=== PATIENT | female | born 2005 | race Caucasian/White ===

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

== ENCOUNTER 2024-06-15 13:08 | Outpatient (OUT) | payer OTHER, SELFPAY ==
--- NOTE | 2024-06-15 13:11 | US_ITS ---
The [address] [address] Patient Name: DANETTE AYALA MRN: [id number] date: 2005 Sex: F Assigned Patient Location: [facility] Current Patient Location: LAB Accession/Order Number: [id number] Exam Date: 06/15/2024 13:11 Report Date: 06/15/2024 22:02 At the request of: SHANIA VAZQUEZ Procedure: US pelvis w/ transvaginal EXAM: US Pelvis Transvaginal CLINICAL INDICATION: POLYCYSTIC OVARIAN DISEASE TECHNIQUE: Real-time transvaginal pelvic ultrasound with image documentation. Transvaginal imaging was used for better evaluation of the endometrium and adnexa. COMPARISON: No relevant prior studies available. FINDINGS: UTERUS/CERVIX: Unremarkable. Normal endometrial stripe thickness. No myometrial mass. RIGHT OVARY: There are approximately 5 small ovarian follicles. Normal blood flow. LEFT OVARY: 2.6 cm left ovarian involuting dominant follicle. No torsion FREE FLUID: No free fluid. US/US pelvis w/ transvaginal IMPRESSION: Relative physiologic appearance of the ovaries without overt stigmata of PCOS Electronically authenticated by: CLARK LARA Date: 06/15/2024 22:02
== END 2024-06-15 13:09 | disposition home or self-care (01) ==
LOC: NOMS 13:08
PROVIDERS: PCP Family Medicine; Visit Provider Obstetrics & Gynecology
DX: E28.2 Polycystic ovarian syndrome (principal)
CPT/HCPCS: 76830; 76856

== ENCOUNTER 2024-06-15 13:49 | Outpatient (OUT) | payer OTHER, SELFPAY ==
--- OUTSIDE RECORDS SUMMARY | 2024-06-15 14:07 | XMS_ITS | CCD ---
Author Organization [facility] Inform ion Partnership [facility] Care Team Providers Care Pesticide Control Inspector Name Role Phone BENITEZ, DR MUNOZ Primary Care Unavailable KIRBY ATKINSON Attending Unavailable DEMETRIO, KIRBY Admitting Unavailable AHDOJONI RICH Consulting Unavailable MichelleHarsha fischer Consulting Unavailable KIRBY ATKINSON Consulting Unavailable KRYSTA, DR BURDICK Consulting Unavailable KARGRETCHEN, DR BURDICK Attending Unavailable BENITEZ, DR MUNOZ Primary Care Unavailable KRYSTA, DR BURDICK Admitting Unavailable WEST, DR KIAN Pablo Consulting Unavailable KARASIK, DR BURDICK Consulting Unavailable KARASIK, DR BURDICK Attending Unavailable BENITEZ, DR MUNOZ Primary Care Unavailable KARASIK, DR BURDICK Admitting Unavailable ZIEBER, DR MELVIN Olmedo Consulting Unavailable SHANIA VAZQUEZ Attending Unavailable Allergies Allergy Classification Reported Allergen(s) Allergy Type Date of Onset Reaction(s) Facility (1 source) Penicillins Drug allergy (disorder) 01-02-2015 [facility] Repository Problems Problem Classification Problem Date Documented Da te Episodic/Chronic Abdominal pain (8 sources) Pelvic and perineal pain; Translations: [Unspecified abdominal pain] Onset: 05-05-2021 Episodic Genitourinary congenital anomalies (1 source) Bicornate uterus; 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] Onset: 10-18-2021 Chronic Ovarian cyst (5 sources) Unspecified ovarian cyst, left side; Translations: [UNSPECIFIED OVARIAN CYST LEFT SIDE] Onset: 10-18-2021 Episodic Results Test Name Value Interpretation Reference Range Facil ity US PELVIS AND TRANSVAGon US PELVIS AND TRANSVAG EXAMINATION: US PELVIS AND TRANSVAG HISTORY: Cyst of left ovary COMPARISON: 10/12/2021 FINDINGS: Transabdominal and transvaginal images The uterus is normal in size, contour and echotexture measuring 7.0 x 4.8 x 3.7 cm. No focal myometrial mass The endometrium measures 8.7 mm, normal. The right ovary measures 3.1 x 2.3 x 1.8 cm. Subcentimeter peripherally distributed follicles. PSV/EDV: 14.9/6.8 cm/s. Resistive index 0.54. The left ovary measures 3.0 x 2.8 x 1.7 cm. PSV/EDV: 11.6/7.8 cm/s. Resistive index 0.33. The previously identified left ovarian cyst has resolved IMPRESSION: Interval resolution of previously identified left ovarian cyst Electronically authenticated by: KIAN MONREAL Date: 2022-01-02 14:40 Normal [facility] US PELVIS AND TRANSVAGon US PELVIS AND TRANSVAG EXAMINATION: US PELVIS AND TRANSVAG HISTORY: Pelvic and perineal pain COMPARISON: Ultrasound pelvis 05/05/2021 TECHNIQUE: Transabdominal and transvaginal sonographic examination. FINDINGS: UTERUS: Bicornuate uterus. Uterus size: 7.5-4 0.6 x 3.8 cm ENDOMETRIUM: Normal homogeneous appearance. Endometrial thickness: 7 mm RIGHT OVARY: Contains a 1.3 cm dominant follicle versus simple cyst. Duplex Doppler demonstrates normal waveform and flow; resistive index 0.6. Ovary size: 2.3 x 2.5 x 2.3 cm LEFT OVARY: Contains a 4.1 cm benign-appearing simple cyst. Duplex Doppler demonstrates normal waveform and flow; resistive index 0.5. Ovary size: 5.1 x 4.2 x 3.6 cm CUL-DE-SAC: Unremarkable. No significant free fluid. BLADDER: Unremarkable. OTHER: None. IMPRESSION: 1. No ovarian torsion. 2. Left ovary contains a 4.1 cm benign simple appearing cyst. It is uncertain whether this represents enlargement of the cyst seen on 05/05/2021, or interval development of a prominent simple appearing cyst. 3. Bicornuate uterus. Electronically authenticated by: MELVIN ALONSO Date: 2021-10-12 15:53 Normal [facility] CBC AUTO DIFFon 05-05-2021 BASO # 0.0 103/ul Normal 0.0-0.1 [facility] Comment on above: Performed By: #### C BC #### [facility] [address] [id number] [place]ela Basophils/100 WBC (Bld) 0.3 % Normal 0.2-2.0 [facility] Comment on above: Performed By: #### C BC #### [facility] [address] [place] [address] [place] Adela EO # 0.0 103/ul Normal 0.0-0.7 [facility] Comment on above: Performed By: #### C BC #### [facility] [address] [place], [place] [id number] [place] Adela Eosinophils/100 WBC (Bld) 0.3 % Critically low 0.9-7.0 [facility] Comment on above: Performed By: #### C BC #### [facility] [address] [place] [address] Cain Adela Erythrocyte distribution width (RBC) [Ratio] 14.3 % Normal 11.0-15.0 [facility] Comment on above: Performed By: #### C BC #### [facility] [address] [place] [address] Cain Adela Hematocrit (Bld) [Volume fraction] 34.1 % Critically low 36.0-48.0 [facility] Comment on above: Performed By: #### C BC #### [facility] [address] [place] [address] Cain Adela Hemoglobin (Bld) [Mass/Vol] 11.1 g/dL Critically low 12.0-16.0 [facility] Comment on above: Performed By: #### C BC #### [facility] [address] [place] [address] Cain Adela IG # 0.02 10e3/ul Normal 0.00-0.03 [facility] Comment on above: Performed By: #### C BC #### [facility] [address] [place] [address] Cain Adela IG % 0.2 % Normal 0.0-0.5 [facility] Comment on above: Performed By: #### C BC #### [facility] [address] [place] [address] Cain Adela LYMPH # 0.9 103/ul Critically low 1.2-3.8 [facility] Comment on above: Performed By: #### C BC #### [facility] [address] [place], [place] [id number] Cain Chapman Lymphocytes/100 WBC (Bld) 9.3 % Critically low 20.5-60.0 [facility] Comment on above: Performed By: #### C BC #### [facility] [address] [place] [address] [place] Adela MANUAL DIFF REQ NO Normal [facility] Comment on above: Performed By: #### C BC #### [facility] [address] [place] [address] Cain Chapman MCH (RBC) [Entitic mass] 25.6 pg Critically low 26.7-34.0 [facility] Comment on above: Performed By: #### C BC #### [facility] [address] [place] [address] Cainramona Chapman MCHC (RBC) [Mass/Vol] 32.6 g/dL Normal 29.9-35.2 [facility] Comment on above: Performed By: #### C BC #### [facility] [address] [place] [address] Cain Chapman MCV (RBC) [Entitic vol] 78.8 fL Critically low 79.1-95.6 [facility] Comment on above: Performed By: #### C BC #### [facility] [address] [place] [address] Cain Adela MONO # 0.6 103/ul Normal 0.3-0.8 [facility] Comment on above: Performed By: #### C BC #### [facility] [address] [place] [address] Cain Chapman Monocytes/100 WBC (Bld) 6.3 % Normal 1.7-12.0 [facility] Comment on above: Performed By: #### C BC #### [facility] [address] [place] [address] Cain Adela NEUT # 8.0 103/ul Critically high 1.4-6.5 [facility] Comment on above: Performed By: #### C BC #### [facility] [address] [place], [place] [id number] Cain Chapman Neutrophils/100 WBC (Bld) 83.6 % Critically high 43.0-75.0 [facility] Comment on above: Performed By: #### C BC #### [facility] [address] [place], [place] [id number] Cain Chapman Platelet mean volume (Bld) [Entitic vol] 11.0 fL Normal 9.5-13.5 [facility] Comment on above: Performed By: #### C BC #### [facility] [address] [place], [place] [id number] Cain Chapman PLT 233 103/ul Normal 150-450 [facility] Comment on above: Performed By: #### C BC #### [facility] [address] [place], [place] [id number] Cain Chapman RBC 4.33 106/ul Normal 3.40-5.30 [facility] Comment on above: Performed By: #### C BC #### [facility] [address] [place], [place] [id number] Cain Chapman WBC 9.6 103/ul Normal 4.0-11.0 [facility] Comment on above: Performed By: #### C BC #### [facility] [address] [place] [id number] ABD/PELV W CONon 05-05-[address] ABD/PELV W CON CLINICAL HISTORY: ABDOMINAL DISTENSION (GASEOUS). Abdominal pain with vomiting, pressure with urination. EXAMINATION: Enhanced CT scan of the abdomen and pelvis 05/05/2021. COMPARISON: None. TECHNIQUE: 3 mm axial images from lung bases through ischial tuberosities following administration of intravenous contrast were obtained. No oral contrast was utilized. Sagittal and coronal reconstructions were performed. Dose reduction techniques were achieved by using automated exposure control and/or adjustment of mA and/or kV according to patient size and/or use of iterative reconstruction technique. FINDINGS: There are no focal abnormalities of the visualized lung bases. The visualized cardiac and posterior mediastinal structures seem normal. CT ABDOMEN: The liver, spleen, gallbladder, pancreas, adrenal glands, kidneys appear normal. There is no hydronephrosis or nephrolithiasis. There is no perinephric fat stranding. The abdominal aorta has normal caliber. There is no retroperitoneal or mesenteric adenopathy. The bowel loops are of normal caliber with a normal-appearing appendix. CT PELVIS: The bladder seems normal. The uterus is normal in size. There is an ovoid, low-density lesion in the left ovary which measures approximately 2.0 x 3.0 cm. There is no enhancing rims, septations, or mural nodules. The Hounsfield units are 19. The right ovary seems normal. There is no pelvic adenopathy. There are no focal fluid collections. The visualized osseous structures seem normal. IMPRESSION: 1. Normal appendix. 2. No nephro or ureterolithiasis. 3. Dominant follicle or cyst measuring 2.9 cm in the left ovary. Electronically authenticated by: HARSHA AGUILAR Date: 2021-05-05 14:12 Normal [facility] ER URINE PROFILEon 1 Bilirubin Ql (U) Negative Normal NEGATIVE [facility] Comment on above: Performed By: #### E RUR, PREGU #### [facility] [address] [address] [place]ela Clarity (U) CLEAR Normal CLEAR [facility] Comment on above: Performed By: #### E RUR, PREGU #### [facility] [address] [id number] [place] Adela Color (U) LT. YELLOW Normal YELLOW [facility] Comment on above: Performed By: #### E RUR, PREGU #### [facility] [address] [id number] [place] Adela ERUAHD A micrscopic examination will be performed if indicated. Normal [facility] Comment on above: Performed By: #### E RUR, PREGU #### [facility] [address] [id number] [place] [address]ela Glucose Ql (U) Negative Normal NEGATIVE [facility] Comment on above: Performed By: #### E RUR, PREGU #### [facility] [address] [place] [address] Cain Adela Hemoglobin Ql (U) Negative Normal NEGATIVE [facility] Comment on above: Performed By: #### E RUR, PREGU #### [facility] [address] [place] [address] [address] Adela Ketones Ql (U) Negative Normal NEGATIVE [facility] Comment on above: Performed By: #### E RUR, PREGU #### [facility] [address] [place] [address] [address] Adela LEUKOCYTES Negative Normal NEGATIVE [facility] Comment on above: Performed By: #### E RUR, PREGU #### [facility] [address] [place] [address] [place] Adela Nitrite Ql (U) Negative Normal NEGATIVE [facility] Comment on above: Performed By: #### E RUR, PREGU #### [facility] [address] [place] [address] [place] Adela pH (U) 6.5 [pH] Normal 5-9 [facility] Comment on above: Performed By: #### E RUR, PREGU #### [facility] [address] [place] [address] [address] Adela SPEC GRAVITY 1.020 Normal 1.005-<=1.025 [facility] Comment on above: Performed By: #### E RUR, PREGU #### [facility] [address] [place] [address] [place] Adela UA PROTEIN Negative Normal NEGATIVE/ TRACE [facility] Comment on above: Performed By: #### E RUR, PREGU #### [facility] [address] [place] [address] [address] Adela UR MICRO IND NOT INDICATED Normal [facility] Comment on above: Performed By: #### E RUR, PREGU #### [facility] [address] [place] [address] [address] Adela Urobilinogen Qn (U) 0.2 {Dagoberto'U}/dL Normal 0.2 - 1. 0 [facility] Comment on above: Performed By: #### E RUShara, PREGU #### [facility] [address] [place] [id number] [address]ona Chapman LIPASEon 05-05-2021 Lipase [Catalytic activity/Vol] 53.0 U/L Normal 23.0-300.0 [facility] Comment on above: Performed By: #### C CRIS, LIPA #### [facility] [address] [place], [place] [id number] [address] Adela URon 05-05-2021 , QUAL Negative Normal NEGATIVE [facility] Comment on above: Performed By: #### E JUAN ALBERTO, PREGU #### [facility] [address] [place], [place] [id number] [address] PROF 14(COMP METB)on 021 Albumin [Mass/Vol] 3.7 g/dL Normal 3.5-5.0 [facility] Comment on above: Performed By: #### C CRIS, LIPA #### [facility] [address] [place], [place] [id number] Cainramona Chapman Albumin/Globulin [Mass ratio] 1.2 {ratio} Normal [facility] Comment on above: Performed By: #### C CRIS, LIPA #### [facility] [address] [place], [place] [id number] [address] Adela ALP [Catalytic activity/Vol] 86 U/L Normal 65-260 [facility] Comment on above: Performed By: #### C CRIS, LIPA #### [facility] [address] [place], [place] [id number] [address] Adela ALT [Catalytic activity/Vol] 22 U/L Normal 9-52 [facility] Comment on above: Performed By: #### C CRIS, LIPA #### [facility] [address] [place], [place] [id number] [address] Adela Anion gap [Moles/Vol] 11.6 mmol/L Normal [facility] Comment on above: Performed By: #### C MP, LIPA #### [facility] [address] [place], [place] [id number] [address] Adela AST [Catalytic activity/Vol] 15 U/L Normal 14-36 [facility] Comment on above: Performed By: #### C MP, LIPA #### [facility] [address] [place] [address] [address] Adela Bilirubin [Mass/Vol] 0.5 mg/dL Normal 0.2-1.3 [facility] Comment on above: Performed By: #### C MP, LIPA #### [facility] [address] [place] [address] Cain Adela Calcium [Mass/Vol] 9.2 mg/dL Normal 8.4-10.2 [facility] Comment on above: Performed By: #### C MP, LIPA #### [facility] [address] [place] [address] [address] Adela Chloride [Moles/Vol] 105 mmol/L Normal 98-107 [facility] Comment on above: Performed By: #### C MP, LIPA #### [facility] [address] [place] [address] Cain Adela CO2 [Moles/Vol] 25.4 mmol/L Normal 22.0-30.0 [facility] Comment on above: Performed By: #### C MP, LIPA #### [facility] [address] [place] [address] Cain Adela Creatinine [Mass/Vol] 0.72 mg/dL Normal 0.52-1.04 [facility] Comment on above: Performed By: #### C MP, LIPA #### [facility] [address] [place] [address] [address] Adela Globulin (S) [Mass/Vol] 3.2 g/dL Normal [facility] Comment on above: Performed By: #### C MP, LIPA #### [facility] [address] [place] [address] [address] Adela Glucose [Mass/Vol] 88 mg/dL Normal 74-106 [facility] Comment on above: Performed By: #### C MP, LIPA #### [facility] [address] [place] [address] [address] Adela Potassium [Moles/Vol] 4.0 mmol/L Normal 3.4-5.0 [facility] Comment on above: Performed By: #### C CRIS, LIPA #### [facility] [address] [address] [address]ela Protein [Mass/Vol] 6.9 g/dL Normal 6.1-8.2 [facility] Comment on above: Performed By: #### C CRIS, LIPA #### [facility] [address] [place], [place] [id number] [address] Adela Sodium [Moles/Vol] 138 mmol/L Normal 137-145 [facility] Comment on above: Performed By: #### C CRIS, LIPA #### [facility] [address] [place] [address] [address] Adela Urea nitrogen [Mass/Vol] 8.0 mg/dL Normal 6.4-19.3 [facility] Comment on above: Performed By: #### C CRIS, LIPA #### [facility] [address] [place] [address] [address] Adela Urea nitrogen/Creatinine [Mass ratio] 11.1 mg/mg Normal [facility] Comment on above: Performed By: #### C CRIS, LIPA #### [facility] [address] [place], [place] [id number] [address] Adela US PELVIS TRANSVAGon 021 US PELVIS TRANSVAG EXAM: US PELVIS TRANSVAG HISTORY: Cyst of ovary COMPARISON: CT abdomen/pelvis of 05/05/2021. TECHNIQUE: Endovaginal approach pelvic ultrasound is performed. Multiple grayscale and color images are submitted for review. FINDINGS: The uterus is anteverted, measures 6.9 x 4.8 x 3.3 cm and demonstrates normal echotexture. No ovarian mass is seen. The endometrial thickness measures 7 mm. The right ovary measures 3.2 x 3.1 x 2.8 cm and demonstrates normal blood flow. Multiple subcentimeter anechoic structures are seen in the right ovary, suggestive of follicles. The left ovary measures 2.2 x 2.4 x 2.3 cm and demonstrates normal blood flow. An anechoic structure measuring 2.2 x 2.0 x 1.6 cm is seen in the left ovary suggestive of a cyst. Small free fluid is seen in the posterior cul-de-sac. IMPRESSION: Left ovarian cyst. Small free fluid is seen in the posterior cul-de-sac. Bilateral ovaries demonstrate normal blood flow. Electronically authenticated by: JONI GUZMAN Date: 2021-05-05 15:27 Normal [facility] Encounters Encounter Date Encounter Type Care Provider Facility Start: 06-07-2024 End: 06-07-2024 ambulatory SHANIA GEORGE Not Available Start: 01-02-2022 End: 01-03-[address] HEAVENLY CHAPARRO Facility[facility] Start: 10-12-2021 End: 10-13-[address] HEAVENLY CHAAPRRO Facility[facility] Start: 05-05-2021 End: 05-05-[address] TAMMY MARQUIS Facility:[facility] Payers Date Payer Category Payer Medicaid [id number] 2004 Unknown [id number] [id number] 2004 Unknown [id number] [id number] [id number] 1975 Unknown [id number] [id number] [id number] 1975 Unknown [id number] 2.16.84 [id number] 1959 Unknown [id number] Summary Purpose Family History No Family History Records FoundNo Family History Records Found Advance Directives No Advanced Directives Records FoundNo Advanced Directives Records Found Additional Source Comments INFORMATION SOURCE (unrecogn ized section and content) DATE CREATED AUTHOR 01/04/2022 [facility] DATE CREATED AUTHOR BALBIR JACK 06/08/[address] [facility] EPIC FOR RECORDS PERTAINING TO PATIENTS WHO ARE OR HAVE BEEN ENROLLED IN A CHEMICAL DEPENDENCY/SUBSTANCEABUSE PROGRAM, SOME INFORMATION MAY BE OMITTED. This clinical summary was aggregated from multiple sources. Caution should be exercised in using it in the provision of clinical care. This summary normalizes information from multiple sources, and as a consequence, information in this document may materially change the coding, format and clinical context of patient data. In addition, data may be omitted in some cases. CLINICAL DECISIONS SHOULD BE BASED ON THE PRIMARY CLINICAL RECORDS. [facility]. provides no warranty or guarantee of the accuracy or completeness of information in this document.
[2024-06-15 14:15] LABS: Basophils Percent Auto 0.7 % (0.2-2.0); Eosinophils Absolute Auto 0.1 10^3/uL (0.0-0.7); Eosinophils Percent Auto 2.3 % (0.9-7.0); Hematocrit 34.8 % (36.0-48.0); Hemoglobin 10.9 g/dL (12.0-16.0); Immature Granulocytes Abs Auto 0.01 10^3/uL (0.00-0.03); Immature Granulocytes Pct Auto 0.2 % (0.0-0.5); Lymphocytes Absolute Auto 1.4 10^3/uL (1.2-3.8); Lymphocytes Percent Auto 23.6 % (20.5-60.0); Mean Corpuscular HGB Conc 31.3 g/dL (29.9-35.2); Mean Corpuscular Hemoglobin 23.2 pg (26.7-34.0); Mean Platelet Volume 10.3 fL (9.5-13.5); Monocytes Absolute Auto 0.5 10^3/uL (0.3-0.8); Monocytes Percent Auto 7.8 % (1.7-12.0); Neutrophils Percent Auto 65.4 % (43.0-75.0); Platelet Count 294 10^3/uL (150-450); Red Cell Distribution Width 15.6 % (11.0-15.0); White Blood Count 6.1 10^3/uL (4.0-11.0)
[2024-06-15 14:32] LABS: Thyroid Stimulating Hormone 2.147 uIU/mL (0.516-4.130)
[2024-06-15 14:42] LABS: HCG Quantitative <1 mIU/mL
[2024-06-15 14:46] LABS: Estimated Average Glucose 103 mg/dL; Glycohemoglobin A1C 5.2 % (4.5-6.2)
[2024-06-15 15:01] LABS: Free T4 0.85 ng/dL (0.78-1.34)
[2024-06-16 08:12] LABS: FSH 4.6 mIU/mL (.); Luteinizing Hormone(LH) 7.6 mIU/mL (.)
[2024-06-18 00:07] LABS: Anti-Mullerian Hormone (AMH) 2.79 ng/mL (.)
[2024-06-21 17:08] LABS: DHEA, Serum 207 ng/dL (40-491)
== END 2024-06-15 13:50 | disposition home or self-care (01) ==
LOC: LAB 13:50
PROVIDERS: PCP Family Medicine; Visit Provider Obstetrics & Gynecology
DX: E28.2 Polycystic ovarian syndrome (principal)
CPT/HCPCS: 36415; 76830; 76856; 82397; 82626; 82627; 83001; 83002; 83036; 84439; 84443; 84702; 85025

== ENCOUNTER 2024-08-06 11:23 | Emergency (ER) | payer OTHER, SELFPAY ==
[2024-08-06 11:26] VITALS: BP 119/67; PULSE 68; TEMP 36.7; O2SAT 100; BMI 32.4
[2024-08-06 11:37] VITALS: O2SAT 99
--- NOTE | 2024-08-06 11:47 | XR_ITS ---
[address] [id number] Patient Name: DANETTE AYALA MRN: [id number] date: 2005 Sex: F Assigned Patient Location: ER Current Patient Location: ER Accession/Order Number: [id number] Exam Date: 08/06/2024 11:57 Report Date: 08/06/2024 12:27 At the request of: KASIA VALLECILLO Procedure: XR knee RT 3V EXAM: XR knee RT 3V HISTORY: Pain. COMPARISON: None. TECHNIQUE: AP, lateral and oblique views of the right knee performed. FINDINGS: The bony alignment and mineralization are within normal limits. There is no fracture. The joint spaces are normal. There is no joint effusion at the knee. There is no soft tissue abnormality. XR/XR knee RT 3V IMPRESSION: Unremarkable right knee series. Electronically authenticated by: DIANN PÉREZ Date: 08/06/2024 12:27
--- OUTSIDE RECORDS SUMMARY | 2024-08-06 11:50 | XMS_ITS | CCD ---
Author Organization [facility] Inform ion Partnership [facility] Care Team Providers Care Surgical Services Asst Name Role Phone BENITEZ, DR MUNOZ Primary [...] source) Penicillins Drug allergy (disorder) 01-02-2015 [facility] Repository Problems Problem Classification Problem Date [...] KIAN MONREAL Date: 2022-01-02 14:40 Normal [facility] US PELVIS AND TRANSVAGon US PELVIS [...] MELVIN ALONSO Date: 2021-10-12 15:53 Normal [facility] CBC AUTO DIFFon 05-05-2021 BASO # 0.0 103/ul Normal 0.0-0.1 [facility] Comment on above: Performed By: #### C BC #### [facility] [address] [id number] Cain Adela Basophils/100 WBC (Bld) 0.3 % Normal 0.2-2.0 [facility] Comment on above: Performed By: #### C BC #### [facility] [address] [place] [address] Cain Adela EO # 0.0 103/ul Normal 0.0-0.7 [facility] Comment on above: Performed By: #### C BC #### [facility] [address] [place], [place] [id number] Cain Adela Eosinophils/100 WBC (Bld) 0.3 % Critically low 0.9-7.0 [facility] Comment on above: Performed By: #### C BC #### [facility] [address] [place] [address] Cain Adela Erythrocyte distribution width (RBC) [Ratio] 14.3 % Normal 11.0-15.0 [facility] Comment on above: Performed By: #### C BC #### [facility] [address] [place] [address] Cain Adela Hematocrit (Bld) [Volume fraction] 34.1 % Critically low 36.0-48.0 [facility] Comment on above: Performed By: #### C BC #### [facility] [address] [place] [address] Cain Adela Hemoglobin (Bld) [Mass/Vol] 11.1 g/dL Critically low 12.0-16.0 [facility] Comment on above: Performed By: #### C BC #### [facility] [address] [place] [address] Cain Adela IG # 0.02 10e3/ul Normal 0.00-0.03 [facility] Comment on above: Performed By: #### C BC #### [facility] [address] [place] [address] Cain Adela IG % 0.2 % Normal 0.0-0.5 [facility] Comment on above: Performed By: #### C BC #### [facility] [address] [place] [address] Cain Adela LYMPH # 0.9 103/ul Critically low 1.2-3.8 [facility] Comment on above: Performed By: #### C BC #### [facility] [address] [place], [place] [id number] Cain Chapman Lymphocytes/100 WBC (Bld) 9.3 % Critically low 20.5-60.0 [facility] Comment on above: Performed By: #### C BC #### [facility] [address] [place] [address] Cain Adela MANUAL DIFF REQ NO Normal [facility] Comment on above: Performed By: #### C BC #### [facility] [address] [place] [address] Cain Chapman MCH (RBC) [Entitic mass] 25.6 pg Critically low 26.7-34.0 [facility] Comment on above: Performed By: #### C BC #### [facility] [address] [place] [address] Cainramona Chapman MCHC (RBC) [Mass/Vol] 32.6 g/dL Normal 29.9-35.2 [facility] Comment on above: Performed By: #### C BC #### [facility] [address] [place] [address] Cain Chapman MCV (RBC) [Entitic vol] 78.8 fL Critically low 79.1-95.6 [facility] Comment on above: Performed By: #### C BC #### [facility] [address] [place] [address] Cain Adela MONO # 0.6 103/ul Normal 0.3-0.8 [facility] Comment on above: Performed By: #### C BC #### [facility] [address] [place] [address] Cain Chapman Monocytes/100 WBC (Bld) 6.3 % Normal 1.7-12.0 [facility] Comment on above: Performed By: #### C BC #### [facility] [address] [place] [address] Cain Adela NEUT # 8.0 103/ul Critically high 1.4-6.5 [facility] Comment on above: Performed By: #### C BC #### [facility] [address] [place], [place] [phone] Cain Chapman Neutrophils/100 WBC (Bld) 83.6 % Critically high 43.0-75.0 [facility] Comment on above: Performed By: #### C BC #### [facility] [address] [place], [place] [phone] Cain Chapman Platelet mean volume (Bld) [Entitic vol] 11.0 fL Normal 9.5-13.5 [facility] Comment on above: Performed By: #### C BC #### [facility] [address] [place], [place] [phone] Cain Chapman PLT 233 103/ul Normal 150-450 [facility] Comment on above: Performed By: #### C BC #### [facility] [address] [place], [place] [phone] Cain Chapman RBC 4.33 106/ul Normal 3.40-5.30 [facility] Comment on above: Performed By: #### C BC #### [facility] [address] [place], [place] [id number] Cain Chapman WBC 9.6 103/ul Normal 4.0-11.0 [facility] Comment on above: Performed By: #### C BC #### [facility] [address] [place] [address] ABD/PELV W CONon 05-05-20 [...] HARSHA AGUILAR Date: 2021-05-05 14:12 Normal [facility] ER URINE PROFILEon 1 Bilirubin Ql (U) Negative Normal NEGATIVE [facility] Comment on above: Performed By: #### E RUR, PREGU #### [facility] [address] [address] Cain Adela Clarity (U) CLEAR Normal CLEAR [facility] Comment on above: Performed By: #### E RUR, PREGU #### [facility] [address] [phone] Cain Adela Color (U) LT. YELLOW Normal YELLOW [facility] Comment on above: Performed By: #### E RUR, PREGU #### [facility] [address] [id number] Cain Adela ERUAHD A micrscopic examination will be performed if indicated. Normal [facility] Comment on above: Performed By: #### E RUR, PREGU #### [facility] [address] [phone] Cain Adela Glucose Ql (U) Negative Normal NEGATIVE [facility] Comment on above: Performed By: #### E RUR, PREGU #### [facility] [address] [place] [address] Cain Adela Hemoglobin Ql (U) Negative Normal NEGATIVE [facility] Comment on above: Performed By: #### E RUR, PREGU #### [facility] [address] [place] [address] Cain Daela Ketones Ql (U) Negative Normal NEGATIVE [facility] Comment on above: Performed By: #### E RUR, PREGU #### [facility] [address] [place] [address] Cain Adela LEUKOCYTES Negative Normal NEGATIVE [facility] Comment on above: Performed By: #### E RUR, PREGU #### [facility] [address] [place] [address] Cain Adela Nitrite Ql (U) Negative Normal NEGATIVE [facility] Comment on above: Performed By: #### E RUR, PREGU #### [facility] [address] [place] [address] Cain Adela pH (U) 6.5 [pH] Normal 5-9 [facility] Comment on above: Performed By: #### E RUR, PREGU #### [facility] [address] [place] [address] Cain Adela SPEC GRAVITY 1.020 Normal 1.005-<=1.025 [facility] Comment on above: Performed By: #### E RUR, PREGU #### [facility] [address] [place] [address] Cain Adela UA PROTEIN Negative Normal NEGATIVE/ TRACE [facility] Comment on above: Performed By: #### E RUR, PREGU #### [facility] [address] [place] [address] Cain Adela UR MICRO IND NOT INDICATED Normal [facility] Comment on above: Performed By: #### E RUR, PREGU #### [facility] [address] [place] [address] Cain Adela Urobilinogen Qn (U) 0.2 {Dagoberto'U}/dL Normal 0.2 - 1. 0 [facility] Comment on above: Performed By: #### E RUShara, PREGU #### [facility] [address] [place] [address] Cainramona Chapman LIPASEon 05-05-2021 Lipase [Catalytic activity/Vol] 53.0 U/L Normal 23.0-300.0 [facility] Comment on above: Performed By: #### C CRIS, LIPA #### [facility] [address] [place], [place] [id number] Cain Adela URon 05-05-2021 , QUAL Negative Normal NEGATIVE [facility] Comment on above: Performed By: #### E JUAN ALBERTO, PREGU #### [facility] [address] [place], [place] [id number] Cain Chapman PROF 14(COMP METB)on 021 Albumin [Mass/Vol] 3.7 g/dL Normal 3.5-5.0 [facility] Comment on above: Performed By: #### C CRIS, LIPA #### [facility] [address] [place], [place] [phone] Cainramona Chapman Albumin/Globulin [Mass ratio] 1.2 {ratio} Normal [facility] Comment on above: Performed By: #### C CRIS, LIPA #### [facility] [address] [place], [place] [phone] Acin Adela ALP [Catalytic activity/Vol] 86 U/L Normal 65-260 [facility] Comment on above: Performed By: #### C CRIS, LIPA #### [facility] [address] [place], [place] [id number] Cain Adela ALT [Catalytic activity/Vol] 22 U/L Normal 9-52 [facility] Comment on above: Performed By: #### C CRIS, LIPA #### [facility] [address] [place], [place] [id number] Cain Adela Anion gap [Moles/Vol] 11.6 mmol/L Normal [facility] Comment on above: Performed By: #### C MP, LIPA #### [facility] [address] [place], [place] [phone] Cain Adela AST [Catalytic activity/Vol] 15 U/L Normal 14-36 [facility] Comment on above: Performed By: #### C MP, LIPA #### [facility] [address] [place] [address] Cain Adela Bilirubin [Mass/Vol] 0.5 mg/dL Normal 0.2-1.3 [facility] Comment on above: Performed By: #### C MP, LIPA #### [facility] [address] [place] [address] Cain Adela Calcium [Mass/Vol] 9.2 mg/dL Normal 8.4-10.2 The [facility] Comment on above: Performed By: #### C MP, LIPA #### [facility] [address] [place] [address] Cain Adela Chloride [Moles/Vol] 105 mmol/L Normal 98-107 [facility] Comment on above: Performed By: #### C MP, LIPA #### [facility] [address] [place] [address] Cain Adela CO2 [Moles/Vol] 25.4 mmol/L Normal 22.0-30.0 [facility] Comment on above: Performed By: #### C MP, LIPA #### [facility] [address] [place] [address] Cain Adela Creatinine [Mass/Vol] 0.72 mg/dL Normal 0.52-1.04 [facility] Comment on above: Performed By: #### C MP, LIPA #### [facility] [address] [place] [address] Cain Adela Globulin (S) [Mass/Vol] 3.2 g/dL Normal [facility] Comment on above: Performed By: #### C MP, LIPA #### [facility] [address] [place] [address] Cain Adela Glucose [Mass/Vol] 88 mg/dL Normal 74-106 The [facility] Comment on above: Performed By: #### C MP, LIPA #### [facility] [address] [place] [address] Cain Adela Potassium [Moles/Vol] 4.0 mmol/L Normal 3.4-5.0 [facility] Comment on above: Performed By: #### C CRIS, LIPA #### [facility] [address] [address] Cain Adela Protein [Mass/Vol] 6.9 g/dL Normal 6.1-8.2 The [facility] Comment on above: Performed By: #### C CRIS, LIPA #### [facility] [address] [place], [place] [id number] Cain Adela Sodium [Moles/Vol] 138 mmol/L Normal 137-145 The [facility] Comment on above: Performed By: #### C CRIS, LIPA #### [facility] [address] [place] [address] Cain Adela Urea nitrogen [Mass/Vol] 8.0 mg/dL Normal 6.4-19.3 [facility] Comment on above: Performed By: #### C CRIS, LIPA #### [facility] [address] [place] [address] Cain Adela Urea nitrogen/Creatinine [Mass ratio] 11.1 mg/mg Normal [facility] Comment on above: Performed By: #### C CRIS, LIPA #### [facility] [address] [place], [place] [phone] Cain Adela US PELVIS TRANSVAGon 021 US [...] JONI GUZMAN Date: 2021-05-05 15:27 Normal [facility] Encounters Encounter Date Encounter Type Care Provider Facility Start: 06-07-2024 End: 06-07-2024 ambulatory SHANIA GEORGE Not Available Start: 01-02-2022 End: 01-03-[address] HEAVENLY CHAPARRO Facility:[facility] Start: 10-12-2021 End: 10-13-[address] HEAVENLY CHAPARRO Facility[facility] Start: 05-05-2021 End: 05-05-[address] TAMMY MARQUIS Facility:[facility] Payers Date Payer Category Payer Medicaid [id number] 2004 Unknown [id number] [id number] [id number] 2004 Unknown [id number] [id number] 1975 Unknown [id number] [id number] [id number] 1975 Unknown [id number] [id number] [id number] 1959 Unknown [id number] Summary Purpose Family History No Family History Records FoundNo Family History Records Found Advance Directives No Advanced Directives Records FoundNo Advanced Directives Records Found Additional Source Comments INFORMATION SOURCE (unrecogn ized section and content) DATE CREATED AUTHOR 01/04/2022 [facility] DATE CREATED AUTHOR BALBIR JACK 06/08/2024 [facility] EPIC FOR RECORDS PERTAINING TO [...] BE BASED ON THE PRIMARY CLINICAL RECORDS. [employer] [facility]. provides no warranty or guarantee of the accuracy or completeness of information in this document.
--- NOTE | 2024-08-06 12:38 | ED.GENADUL1 ---
HPI HPI - General Adult General Chief complaint: Extremity Injury, Lower Stated complaint: LOWER EXTREITY PAIN Time Seen by Provider: 08/06/24 11:24 Source: patient Mode of arrival: walk-in Limitations: no limitations History of Present Illness HPI narrative: 18-year-old female to the emergency department chief complaint of knee pain. Patient reports knee pain has been ongoing intermittently for the last 6 years. No particular injury. She believes she may have injured it in sports in high school. She is able to walk. Sometimes it hurts her knee, sometimes below her knee, sometimes above her knee. No recent injuries. No redness, warmth, swelling to the knee. 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 Related Data Home Medications ?Medication ?Instructions ?Recorded ?Confirmed No Known Home Medications 11/21/23 11/21/23 Allergies Allergy/AdvReac Type Severity Reaction Status Date / Time No Known Drug Allergies Allergy Verified 11/21/23 14:24 Opioid HPI Opioid Management Most Recent Opioid Data: Last Pain Scale 6 08/06/24 11:32 08/06/24 Review of Systems ROS Status of ROS 10 or more systems reviewed and unremarkable except as noted in history and below PFSH PFSH Social History Smoking status: Never smoker Exam Narrative Exam Narrative: Right lower Extremity: DP and PT pulses intact. Limb is similar color and temperature to the contralateral limb. Compartments soft. No swelling. No ecchymosis. No medial malleolus tenderness. No lateral malleolus tenderness. No tenderness at the base of the fifth metatarsal. No midfoot tenderness. No fibular head tenderness. Able to bear weight with arches maintained. Sensation is intact over the foot and lower leg. Dorsiflexion/plantar flexion, knee flexion/extension, hip flexion/extension are grossly intact by strength testing. Constitutional Vital Signs, click to edit/add: Last Vital Signs Temp 98.0 F 08/06/24 11:26 Pulse 68 08/06/24 11:26 Resp 18 08/06/24 11:26 BP 119/67 08/06/24 11:26 Pulse Ox 99 08/06/24 11:37 O2 Del Method Room Air 08/06/24 11:37 Course Vital Signs Vital signs: Vital Signs Temperature 98.0 F 08/06/24 11:26 Pulse Rate 68 08/06/24 11:26 Respiratory Rate 18 08/06/24 11:26 Blood Pressure 119/67 08/06/24 11:26 Pulse Oximetry 100 08/06/24 11:26 Oxygen Delivery Method Room Air 08/06/24 11:26 Temperature 98.0 F 08/06/24 11:26 Pulse Rate 68 08/06/24 11:26 Respiratory Rate 18 08/06/24 11:26 Blood Pressure 119/67 08/06/24 11:26 Pulse Oximetry 99 08/06/24 11:37 Oxygen Delivery Method Room Air 08/06/24 11:37 Medical Decision Making MDM Narrative Medical decision making narrative: 18-year-old female to the emergency department chief complaint of right knee pain intermittently for the last 6 years. Vital stable, the patient is afebrile. The right lower extremity is unremarkable. No redness, warmth, swelling. She has full range of motion. She is able to ambulate. It is unclear why the patient came to the emergency department today for this evaluation. X-ray is unremarkable. She is referred to orthopedic surgery and given an Jack wrap should he continue to hurt. Recommended Tylenol or ibuprofen. Patient was discharged home. Medical Records Medical records reviewed: Yes I reviewed the patient's medical records Imaging Data Knee x-ray: Radiologist's impression: ITS Impressions Knee X-Ray 08/06/24 11:47 IMPRESSION: Unremarkable right knee series. Electronically authenticated by: DIANN PÉREZ Date: 08/06/2024 12:27 Discharge Plan Discharge Chief Complaint: Extremity Injury, Lower Clinical Impression: Chronic knee pain Patient Disposition: Home, Self-Care Time of Disposition Decision: 12:36 Condition: Good Mode of Transportation: Private Vehicle Prescriptions / Home Meds: No Action No Known Home Medications Print Language: Northern Irish Instructions: Knee Pain (ED) Additional Instructions: Call the office of your primary care doctor to arrange for follow-up within the above-stated timeframe. Your ED visit was focused on your acute issue and does not replace primary care. You should review your labs, imaging, and diagnoses from this ED visit with your primary care physician. There may be non-emergent/ incidental findings that need further evaluation. You should review your vital signs including blood pressure with your PCP. If you were prescribed medications you should discuss possible side-effects and drug interactions with your pharmacist. Call 911 or go to the nearest Emergency Department if you develop any new or worsening symptoms. Referrals: TAMMY MARQUIS [Primary Care Provider] - 1 week Jayden Vilchis MD [Physician] - 1 week
[2024-08-06 12:41] VITALS: BP 134/71; PULSE 74; O2SAT 99
== END 2024-08-06 12:43 | disposition home or self-care (01) ==
PROVIDERS: Emergency Provider Student in an Organized Health Care Education/Training Program; PCP Family Medicine
DX: M25.561 Pain in right knee (principal); G89.29 Other chronic pain
CPT/HCPCS: 73562; 99283

== ENCOUNTER 2025-04-01 14:31 | Outpatient (OUT) | payer OTHER, SELFPAY ==
--- OUTSIDE RECORDS SUMMARY | 2024-03-01 09:30 | XMS_ITS ---
Author Organization [facility] Address [address] [place] [address] Care Team Providers Care Classification And Treatment Director Name Role Phone Bethany Wells Primary Care Provider Nate Gutierrez [facility] [phone] REASON FOR VISIT FILLING Encounters Encounter Location Date Provider [address] [place] [address] 03/01/2024 Nate Gutierrez Plan Of Treatment No Information Progress Notes * BDOB:11/2004 (19 yo F)Acc No.[id number]:03/01/2024 Patient: Ray NDIAYE Provider: Alyssia Gaytan DDS :2005 A ge:18 Y S ex:Female Date:03/01/2024 [id number] Pcp:Bethany Guerrero Subjective: * Chief Complaints: * 1 . FILLING. * Medical History: Objective: * Vitals: Assessment: Plan: * Treatment: * Images: * Electronic signature of Yung Gutierrez on 04/01/2025 at 02:35 PM EDT Sign off status: Pending * Provider: Alyssia Gaytan DDS Date: 03/01/2024 Generated for Printi ng/Faxing/eTransmitting on: 04/01/2025 02:35 PM EDT
--- OUTSIDE RECORDS SUMMARY | 2024-08-16 10:00 | XMS_ITS ---
Author Organization [facility] Address [address] [place] [address] Care Team Providers Care Master Craftsman Name Role Phone Bethany Wells Primary Care Provider Charlee Lawrence Unavailable [phone] REASON FOR VISIT 6 MONTHS Encounters Encounter Location Date Provider Diagnosis [facility] [address] [place] [address] 08/16/2024 Charlee Lawrence Plan Of Treatment No Information Progress Notes * BDOB:11/2004 (19 yo F)Acc No.[id number]:08/16/2024 Patient: Ray NDIAYE Provider: Dru Lawrence :2005 A ge:18 Y S ex:Female Date:08/16/2024 Address:[id number] Pcp:Bethany Guerrero Subjective: * Chief Complaints: * 1 . 6 MONTHS. * Medical History: Objective: * Vitals: Assessment: Plan: * Treatment: * Images: * Electronic signature of Yocasta Lawrence on 04/01/2025 at 02:35 PM EDT Sign off status: Pending * Provider: Dru Lawrence Date: 1 Generated for Naimai ng/Farubeng/eTransmitting on: 0 04/01/2025 02:35 PM EDT
--- OUTSIDE RECORDS SUMMARY | 2025-04-01 14:35 | XMS_ITS | Patient Health Record ---
Author Organization [facility] Address [address] [place] [address] Care Team Providers Care Vegetable Inspector Name Role Phone Bethany Wells Primary Care Provider Charlee Lawrence Unavailable [phone] Reason For Referral No Information Plan Of Treatment No Information Insurance Providers Payer Name Payer Address Payer Phone Subscriber Number Group Number Insured Name Patient Relationship to Insured Coverage Start Date Coverage End Date Dental [employer] [address] [address] [place] [address] [phone] [id number] TAMARAENS TREJO DANETTE Self - patient is the insured 3 Dental Wrap [employer] [address] [place] [address] [id number] TAMARAENS TREJO DANETTE Self - patient is the insured 3 zAnthem BS Medicaid- termed 22 [address] [place] [address] [id number] BLANK HIP DANETTE Self - patient is the insured 2 3 zDENTAL DQ PARAMOUNT -termed 22 [address] [place] [address] [id number] JUNIOR HIP DANETTE Self - patient is the insured 2 3 zDental MEDICAID CFC after PARAMOUNT -termed 23 [address] [place] [address] [id number] BLANK HIP, DANETTE Self - patient is the insured 2 3 Dental [place] DQ [address] [facility] [place] [place] [address] [id number] BLANKENS HIP, DANETTE Self - patient is the insured 3 3 Dental Wrap CFC [place] BCBS [address] [place] [address] [id number] BLANKENS HIP, DANETTE Self - patient is the insured 3 3
--- OUTSIDE RECORDS SUMMARY | 2025-04-01 14:35 | XMS_ITS | Encounter Summary ---
Author Organization [facility] Address [address] [facility] [place] [address] Care Team Providers Care Bill Of Lading Clerk Name Role Phone Eliana Flanagan MD Primary Care Provider [phone] Nicole Hernandes COMPOSITION WEATHERBOARD APPLIER Unavailable [phone] Encounter Details Date Type Department Care Team (Late Contact Info) Description 11/24/2023 Abstract [facility] [address] [facility] [address] [place] [phone] Eliana Flanagan MD [address] [facility] [address] [place] [address] Social History Tobacco Use Types Packs/Day Years Used Date Smoking Tobacco: Never Assessed Comments Unknown Sex and Gender Information Value Date Recorded Sex Assigned at Not on file Legal Sex Female 6:51 PM EDT Gender Identity Not on file Sexual Orientation Not on file documented as of this encounter Plan of Treatment Upcoming Encounters Date Type Department Care Team (Late st Contact Info) Description 04/06/2025 1:20 PM EDT Routine [facility] [address] [facility] [facility] [place] [address] Alex Antunez DO [address] [place] [address] documented as of this encounter Visit Diagnoses Not on filedocumented in this encounter Care Teams Bill Of Lading Clerk Relationship Specialty Start Date End Date Eliana Flanagan MD [address] [facility] [address] [place], [place] [phone] PCP - General Family Medicine 03/04/23 Nicole Hernandes, COMPOSITION WEATHERBOARD APPLIER [address] [facility] [address] [id number] PCP - FFS [facility] 07/27/24 documented as of this encounter
--- OUTSIDE RECORDS SUMMARY | 2025-04-01 14:35 | XMS_ITS | Encounter Summary ---
Author Organization [facility] Address [address] [place] [address] Care Team Providers Care Automobile Spring Repairer Name Role Phone Eliana Marquis MD Primary Care Provider [phone] Nicole Hernandes ROTARY CUTTER FEEDER Unavailable [phone] Encounter Details Date Type Department Care Team (Late st Contact Info) Description 06/15/2024 Clinisync Result Encounter [facility] External Department Unsolicited Provider, Generic External Data Social History Tobacco Use Types Packs/Day Years Used Date Smoking Tobacco: Never Comments Unknown Sex and Gender Information Value Date Recorded Sex Assigned at Not on file Legal Sex Female 6:51 PM EDT Gender Identity Not on file Sexual Orientation Not on file documented as of this encounter Plan of Treatment Upcoming Encounters Date Type Department Care Team (Late st Contact Info) Description 04/06/2025 1:20 PM EDT Routine [facility] OB [address] [place] [phone] Shania Antunez, DO [address] [facility] [place] [address] documented as of this encounter Procedures Procedure Name Priority Date/Time Associated Diagnosis Comments US PELVIS W/ TRANSVAGINAL 2023 10:02 PM EDT ALL LUTEINIZING HORMONE Routine 06/15/20 2:04 PM EDT ALL FOLLICLE STIMULATING HORMONE Routine 06/15/2024 2:04 PM EDT ALL DHEA SULFATE Routine 06/15/2024 2:04 PM EDT ALL DEHYDROEPIANDROSTERONE Routine 06/15 2:04 PM EDT ALL ANTI-MULLERIAN HORMONE Routine 06/15 2:04 PM EDT documented in this encounter Results * US PELVIS W/ TRANSVAGINAL (06/15/2024 10:02 PM EDT) Anatomical Region Laterality Modality Other 06/15/2024 10:0 2 PM EDT Narrative 06/15/2024 10:04 [place] [address] Ultrasound Report Signed Patient: DANETTE BLAS MR#: [id number] : 2005 Acct:[id number] Age/Sex: 18 / F ADM Date: 06/15/24 Loc: [facility] Attending Dr: Shania Antunez D.O. Ordering Physician: Shania Antunez D.O. Date of Service: 06/15/24 Procedure(s): US pelvis w/ transvaginal Accession Number(s): [id number] cc: ELIANA MARQUIS ; Shania Antunez D.O. [place] [id number] Patient Name: DANETTE BLAS MRN: [facility]:[id number] date: 2005 Sex: F Assigned Patient Location: [facility] Current Patient Location: LAB Accession/Order Number: [id number] Exam Date: 06/15/2024 13:11 Report Date: 06/15/2024 22:02 At the request of: SHANIA ANTUNEZ Procedure: US pelvis w/ transvaginal EXAM: US Pelvis Transvaginal CLINICAL INDICATION: POLYCYSTIC OVARIAN DISEASE TECHNIQUE: Real-time transvaginal pelvic ultrasound with image documentation. Transvaginal imaging was used for better evaluation of the endometrium and adnexa. COMPARISON: No relevant prior studies available. FINDINGS: UTERUS/CERVIX: Unremarkable. Normal endometrial stripe thickness. No myometrial mass. RIGHT OVARY: There are approximately 5 small ovarian follicles. Normal blood flow. LEFT OVARY: 2.6 cm left ovarian involuting dominant follicle. No torsion FREE FLUID: No free fluid. US/US pelvis w/ transvaginal IMPRESSION: Relative physiologic appearance of the ovaries without overt stigmata of PCOS Electronically authenticated by: CLARK LY Date: 06/15/2024 22:02 Dictated By: Clark Ly M.A. Signed By: 06/15/242203 DD/ 01 TD/TT: Camp Dining Room Attendant: Procedure Note Radiology, Radiologist, MD - 06/15/2024 [place] [address] Ultrasound Report Signed Patient: DANETTE BLAS BMR#: [id number] : 2005Acct:[id number] Age/Sex: 18 / FADM Date: 06/15/24 Loc: [facility] Attending Dr: Shania Antunez D.O. Ordering Physician: Shania Antunez D.O. Date of Service: 06/15/24 Procedure(s): US pelvis w/ transvaginal Accession Number(s): [id number] cc: ELIANA MARQUIS ; Shania Antunez D.O. [place] [address] Patient Name: DANETTE BLAS MRN: [facility]:[id number] date: 2005 Sex: F Assigned Patient Location: [facility] Current Patient Location: LAB Accession/Order Number: [id number] Exam Date: 06/15/2024 13:11 Report Date: 06/15/2024 22:02 At the request of: SHANIA ANTUNEZ Procedure: US pelvis w/ transvaginal EXAM: US Pelvis Transvaginal CLINICAL INDICATION: POLYCYSTIC OVARIAN DISEASE TECHNIQUE: Real-time transvaginal pelvic ultrasound with imagedocumentation. Transvaginal imaging was used for better evaluation of the endometrium and adnexa. COMPARISON: No relevant prior studies available. FINDINGS: UTERUS/CERVIX: Unremarkable. Normal endometrial stripe thickness. No myometrial mass. RIGHT OVARY: There are approximately 5 small ovarian follicles. Normalblood flow. LEFT OVARY: 2.6 cm left ovarian involuting dominant follicle. No torsion FREE FLUID: No free fluid. US/US pelvis w/ transvaginal IMPRESSION: Relative physiologic appearance of the ovaries without overt stigmata ofPCOS Electronically authenticated by: CLARK LY Date: 06/15/2024 22:02 Dictated By: Clark Ly M.A. Signed By:06/15/242203 DD/ 01 TD/TT: Camp Dining Room Attendant: us Generic External Data Provider [facility] Final Result * ALL DEHYDROEPIANDROSTERONE (06/15/2024 2:04 PM EDT) DHEA, SERUM 207 40 - 491 ng/dL [facility] Comment: Age 1 - 5 years 0 - 67 6 - 7 years 0 - 110 8 - 10 years 0 - 185 11 - 12 years 0 - 201 13 - 14 years 0 - 318 15 - 16 years 39 - 481 17 - 19 years 40 - 491 20 - 50 years 31 - 701 >50 years 21 - 402 This test was developed and its performance characteristics determined by [employer]. It has not been cleared or approved by the Food and Drug Administration. Performed at: [address] [id number] Charter And Tour Bus Driver: Eliud Rodriguez MD, Phone: [phone] 06/15/2024 2:04 PM EDT 06/15/2024 2:06 PM EDT Narrative [facility] - 06/21/2024 5:08 PM EDT us Shania Tulio DO [facility] Final Result [facility] * ALL ANTI-MULLERIAN HORMONE (06/15/2024 2:04 PM EDT) ANTI-MULLERIAN HORMONE (AMH) 2.79 . ng/mL [facility] Comment: For assays employing antibodies, the possibility exists for interference by heterophile antibodies in the samples.1 1.Kricka L. Interferences in Immunoassays - still a threat. Clin. Chem. 2000; 46: 5083-7251. This test was developed and its performance characteristics determined by [facility]. It has not been cleared or approved by the Food and Drug Administration. Reference Range: Females 7 - 19y: 1.05 - 12.86 Median 5.23 Circulating AMH levels change during pubertal development: male levels decrease female levels increase with sexual development. Females at risk of polycystic ovarian syndrome (PCOS) may exhibit elevated serum AMH concentrations. AMH levels from PCOS patients may be 2 to 5 fold higher than age-appropriate reference interval values. Granulosa cell tumors of the ovary may secrete AMH along with other tumor markers. Elevated AMH is not specific for malignancy, and the assay should not be used exclusively to diagnose or exclude an AMH-secreting ovarian tumor. Performed at: [facility] [address] [place] [id number] Charter And Tour Bus Driver: Burke Mackey MD, Phone: [phone] 06/15/2024 2:04 PM EDT 06/15/2024 2:06 PM EDT Narrative [facility] - 06/18/2024 12:07 AM EDT Shania Antunez DO [facility] Final Result [facility] * ALL FOLLICLE STIMULATING HORMONE (06/15/2024 2:04 PM EDT) FSH 4.6 . mIU/mL [facility] Comment: Adult Female Range Follicular phase 3.5 - 12.5 Ovulation phase 4.7 - 21.5 Luteal phase 1.7 - 7.7 Postmenopausal 25.8 - 134.8 Performed at: [address] [id number] [employer] Tour Bus Driver: Nate Don PhD, Phone: [phone] 06/15/2024 2:04 PM EDT 06/15/2024 2:06 PM EDT Narrative [facility] - 06/16/2024 8:12 AM EDT us Generic External Data Provider [facility] F inal Result Performing Organization Address [facility] [place] Co de Phone Number [facility] * ALL LUTEINIZING HORMONE (06/15/2024 2:04 PM EDT) LUTEINIZING HORMONE(LH) 7.6 . mIU/mL [facility] Comment: Adult Female Range Follicular phase 2.4 - 12.6 Ovulation phase 14.0 - 95.6 Luteal phase 1.0 - 11.4 Postmenopausal 7.7 - 58.5 06/15/2024 2:04 PM EDT 06/15/2024 2:06 PM EDT Narrative [facility] - 06/16/2024 8:12 AM EDT Generic External Data Provider [facility] F inal Result Performing Organization Address [facility] [place] de Phone Number [facility] * ALL DHEA SULFATE (06/15/2024 2:04 PM EDT) DHEA-SULFATE 194.0 110.0 - 433.2 ug/dL [facility] 06/15/2024 2:04 PM EDT 06/15/2024 2:06 PM EDT Narrative [facility] - 06/16/2024 8:12 AM EDT Generic External Data Provider [facility] F inal Result Performing Organization Address [facility] [place]/[facility] Co de Phone Number [facility] documented in this encounter Visit Diagnoses Not on filedocumented in this encounter Care Teams Automobile Spring Repairer Relationship Specialty Start Date End Date Eliana Marquis MD [address] [facility] 110 [place] [address] PCP - General Family Medicine 03/04/23 Nicole Hernandes NP [address] Loc [address] [place] [address] PCP - FFS [facility] 07/27/24 documented as of this encounter
--- OUTSIDE RECORDS SUMMARY | 2025-04-01 14:36 | XMS_ITS | Encounter Summary ---
Author Organization [facility] Address [address] [place] [address] Care Team Providers Care Electric Cutter Operator Name Role Phone Eliana Flanagan MD Primary Care Provider [phone] Nicole Hernandes CUTTER GRINDER Unavailable [phone] Encounter Details Date Type Department Care Team (Late st Contact Info) Description 11/24/2023 Orders Only [facility] CI FM [address] [facility] [address] [place] [address] A, Unknown Practice [address] [place], [place] [phone] Social History Tobacco Use Types Packs/Day Years [...] PM EDT Routine [facility] BCP OB [address] [place] [address] Alex Antunez DO [address] [place] [address] documented as of this encounter Procedures Procedure Name Priority Date/Time Associated Diagnosis Comments ELECTROCARDIOGRAM REPORT Routine 024 3:08 PM EST XR CHEST 1 VIEW Routine 11/21/2023 10:12 AM EST documented in this encounter Results * Electrocardiogram Report (11/21/2023 3:08 PM EST) us Unknown Practice A IN CLINIC/BEDSIDE ORDERABLES Final Result * XR chest 1 view (11/21/2023 10:12 AM EST) Anatomical Region Laterality Modality Chest Radiographic Priya ging us Unknown Practice A IMG XR PROCEDURES Final Resul t documented in this encounter Visit Diagnoses Not on filedocumented in this encounter Care Teams Electric Cutter Operator Relationship Specialty Start Date End Date Eliana Flanagan MD [address] [facility] 110 [place] [address] PCP - General Family Medicine 03/04/23 Nicole Hernandes, CUTTER GRINDER [address] [facility] 110 [place] [address] PCP - FFS State ADMINISTRATIVE OFFICE MANAGER 07/27/24 documented as of this encounter
[2025-04-01 14:56] LABS: Basophils Percent Auto 0.5 % (0.2-2.0); Eosinophils Absolute Auto 0.2 10^3/uL (0.0-0.7); Eosinophils Percent Auto 2.5 % (0.9-7.0); Hematocrit 32.1 % (36.0-48.0); Hemoglobin 10.4 g/dL (12.0-16.0); Immature Granulocytes Abs Auto 0.01 10^3/uL (0.00-0.03); Immature Granulocytes Pct Auto 0.1 % (0.0-0.5); Lymphocytes Absolute Auto 1.1 10^3/uL (1.2-3.8); Lymphocytes Percent Auto 14.4 % (20.5-60.0); Mean Corpuscular HGB Conc 32.4 g/dL (29.9-35.2); Mean Corpuscular Hemoglobin 23.8 pg (26.7-34.0); Mean Corpuscular Volume 73.5 fL (81.0-99.0); Mean Platelet Volume 11.1 fL (9.5-13.5); Monocytes Absolute Auto 0.5 10^3/uL (0.3-0.8); Monocytes Percent Auto 7.1 % (1.7-12.0); Neutrophils Absolute Auto 5.5 10^3/uL (1.4-6.5); Neutrophils Percent Auto 75.4 % (43.0-75.0); Platelet Count 255 10^3/uL (150-450); Red Blood Count 4.37 10^6/uL (4.20-5.40); Red Cell Distribution Width 17.3 % (11.0-15.0); White Blood Count 7.3 10^3/uL (4.0-11.0)
[2025-04-01 15:12] LABS: Amphetamine Screen Urine NEGATIVE (NEGATIVE); Barbiturates Screen Urine NEGATIVE (NEGATIVE); Benzodiazepines Screen Urine NEGATIVE (NEGATIVE); Buprenorphine Screen Urine NEGATIVE (NEGATIVE); Cannabinoid Screen Urine NEGATIVE (NEGATIVE); Cocaine Screen Urine NEGATIVE (NEGATIVE); Methadone Screen Urine NEGATIVE (NEGATIVE); Methamphetamines Screen Urine NEGATIVE (NEGATIVE); Opiate Screen Urine NEGATIVE (NEGATIVE); Oxycodone Screen Urine NEGATIVE (NEGATIVE); Phencyclidine Screen Urine NEGATIVE (NEGATIVE); Tricyclic Antidepressant Urine NEGATIVE (NEGATIVE)
[2025-04-01 16:21] LABS: Estimated Average Glucose 103 mg/dL; Glycohemoglobin A1C 5.2 % (4.5-6.2)
[2025-04-02 02:07] LABS: HIV Ab/p24 Ag Screen Non Reactive (Non Reactive)
[2025-04-02 04:07] LABS: HBsAg Screen Negative (Negative); HCV Ab Non Reactive (Non Reactive)
[2025-04-02 06:08] LABS: Rubella Antibodies, IgG 1.92 index (Immune >0.99)
[2025-04-02 13:08] LABS: Rapid Plasma Reagin, Quant Non Reactive titer (NonRea<1:1)
== END 2025-04-01 14:32 | disposition home or self-care (01) ==
LOC: LAB 14:33
PROVIDERS: PCP Family Medicine; Visit Provider Obstetrics & Gynecology
DX: Z34.01 Encounter for supervision of normal first pregnancy, first trimester (principal); N92.6 Irregular menstruation, unspecified
CPT/HCPCS: 36415; 80307; 83036; 85025; 86592; 86762; 86803; 86850; 86900; 86901; 87086; 87340; 87389

== ENCOUNTER 2025-07-25 12:05 | Outpatient (OUT) | payer OTHER, SELFPAY ==
--- OUTSIDE RECORDS SUMMARY | 2024-03-01 09:30 | XMS_ITS ---
Author Organization [facility] Address [address] [place] [address] Care Team Providers Care Coagulation Operator Name Role Phone Bethany Wells Primary Care Provider Nate Gutierrez [facility] [phone] REASON FOR VISIT FILLING Encounters Encounter Location Date Provider Diagnosis [address] [place] [address] 03/01/2024 Nate Gutierrez Plan Of Treatment No Information Progress Notes * BDOB:11/2004 (19 yo F)Acc No.[id number]:03/01/2024 Patient: Ray NDIAYE Provider: Alyssia Gaytan DDS :2005 A ge:18 Y S ex:Female Date:03/01/2024 Address:[id number] Pcp:Bethany Guerrero Subjective: * Chief Complaints: * 1 . FILLING. * Medical History: Objective: * Vitals: Assessment: Plan: * Treatment: * Images: * Electronic signature of Yung Gutierrez on 07/25/2025 at 12:07 PM EDT Sign off status: Pending * Provider: Alyssia Gaytan DDS Date: 03/01/2024 Generated for Printi ng/Faxing/eTransmitting on: 0 07/25/2025 12:07 PM EDT
--- OUTSIDE RECORDS SUMMARY | 2024-08-16 10:00 | XMS_ITS ---
Author Organization [facility] Address [address] [place] [address] Care Team Providers Care Pharmacy Intern Name Role Phone Bethany Wells Primary Care Provider Charlee Lawrence Unavailable [phone] REASON FOR VISIT 6 MONTHS Encounters Encounter Location Date Provider Diagnosis [facility] [address] [place] [address] 08/16/2024 Charlee Lawrence Plan Of Treatment No Information Progress Notes * BDOB:11/2004 (19 yo F)Acc No.[id number]:08/16/2024 Patient: Ray NDIAYE Provider: Dru Lawrence :2005 A ge:18 Y S ex:Female Date:08/16/2024 Address:[id number] Pcp:Bethany Guerrero Subjective: * Chief Complaints: * 1 . 6 MONTHS. * Medical History: Objective: * Vitals: Assessment: Plan: * Treatment: * Images: * Electronic signature of Yocasta Lawrence on 07/25/2025 at 12:07 PM EDT Sign off status: Pending * Provider: Dru Lawrence Date: 1 Generated for Naimai ng/Farubeng/eTransmitting on: 0 07/25/2025 12:07 PM EDT
--- OUTSIDE RECORDS SUMMARY | 2025-04-27 06:00 | XMS_ITS ---
Author Organization [facility] Address [address] [place] [address] Care Team Providers Care Men'S Designer Name Role Phone Bethany Wells Primary Care Provider Dr. Adolfo Reagan [facility] [phone] REASON FOR VISIT JAW AND TOOTH PAIN Encounters Encounter Location Date Provider Diagnosis [facility] [address] [place] [address] 04/27/2025 Adolfo Reagan Plan Of Treatment No Information Progress Notes * BDOB:11/2004 (19 yo F)Acc No.[id number]:04/27/2025 Patient: Ray NDIAYE Provider: Parrish Reagan DDS :2005 A ge:19 Y S ex:Female Date:04/27/2025 [facility] Pcp:Bethany Guerrero Subjective: * Chief Complaints: * 1 . JAW AND TOOTH PAIN. * Medical History: Objective: * Vitals: Assessment: Plan: * Treatment: * Images: * Electronic signature of Dr. Adolfo Reagan , DMD on 07/25/2025 at 12:08 PM EDT Sign off status: Pending * Provider: Parrish Reagan DDS Date: 04/27/2025 Generated for Naimai shamar/Yovanny/eTransmitting on: 07/25/2025 12:08 PM EDT
--- OUTSIDE RECORDS SUMMARY | 2025-05-10 06:00 | XMS_ITS ---
Author Organization [facility] Address [address] [place] [address] Care Team Providers Care Archery Equipment Hay Sorter Name Role Phone Bethany Wells Primary Care Provider Dr. Adolfo Reagan [facility] [phone] REASON FOR VISIT JAW AND TOOTH PAIN Encounters Encounter Location Date Provider Diagnosis [facility] [address] [place] [address] 05/10/2025 Adolfo Reagan Plan Of Treatment No Information Progress Notes * BDOB:11/2004 (19 yo F)Acc No.[id number]:05/10/2025 Patient: Ray NDIAYE Provider: Parrish Reagan DDS :2005 A ge:19 Y S ex:Female Date:05/10/2025 [facility] Pcp:Bethany Guerrero Subjective: * Chief Complaints: * 1 . JAW AND TOOTH PAIN. * Medical History: Objective: * Vitals: Assessment: Plan: * Treatment: * Images: * Electronic signature of Dr. Adolfo Reagan , DMD on 07/25/2025 at 12:08 PM EDT Sign off status: Pending * Provider: Parrish Reagan DDS Date: 05/10/2025 Generated for Printi shamar/Yovanny/eTransmitting on: 07/25/2025 12:08 PM EDT
--- OUTSIDE RECORDS SUMMARY | 2025-07-13 15:18 | XMS_ITS ---
Author Name Auto Generated Organization OHIP Care Team Providers Care Tip Bander Name Role Phone JOSE ANTONIO RICHARDSON Attending Unavailable SHANIA VAZQUEZ Attending Unavailable PLACIDO GARCIA Attending Unavailable PLACIDO GARCIA Referring Unavailable SHANIA VAZQUEZ Attending Unavailable SHANIA VAZQUEZ Attending Unavailable SHANIA VAZQUEZ Attending Unavailable PROBLEMS No Problem Records Found PROCEDURES No Procedure Records Found RESULTS US OB 14+ WEEKS ANATOMY SCAN Observed: 05/18/2025 3:41 PM Status: F Source: [facility] EPIC Order Comment: US OB ANATOMY SINGLE W US OB CERVICAL LENGTH Estimated Date of Delivery: 10/14/25 Gestational Age as of 05/18/2025: 18w5d FINDINGS: A single, live intrauterine is present with normal cardiac rate of 144 beats per minute. Normal activity and amniotic fluid volume. Morphology is grossly normal. The placenta is anterior, inferior margin located 9.0 proximal to the closed internal cervical os, 4.0 cm length. The current sonographic age is 20 weeks and 4 days, based on the following measurements: BPD 5.0 cm ( 21 weeks, 1 days) Head Circumference 17.8cm (20 weeks, 2 days) Abdominal Circumference 14.7cm ( 20weeks, 0 days) Femur Length 3.4cm (20 weeks, 5 days) Presentation Cephalic Placenta Anterior These measurements result in an estimated date of delivery of October 14, 2025. IMPRESSION: Single, live intrauterine , current sonographic age of 20 weeks and 4 days, with an estimated date of delivery of October 14, 2025. TRANSCRIBED BY: ELECTRONICALLY SIGNED BY: Adolfo Camp MD US OB TRANSVAGINAL Observed: 03/10/2025 12:41 PM Status: F Source: [facility] EPIC Order Comment: US OB TRANSVA GINAL No LMP recorded. EXAM: US OB TRANSVAGINAL HISTORY: Dating. COMPARISON: None available. TECHNIQUE: Two-dimensional transvaginal grayscale ultrasound imaging of the pelvis was performed. Color Doppler evaluation of the ovaries was also performed. FINDINGS: The uterus demonstrates a normal homogeneous echotexture. The cervix measures 4.7 cm in length and the cervical os is closed. The right ovary measures 2.9 x 2.0 x 2.8 cm and demonstrates a normal echotexture. There is normal color Doppler flow. The left ovary measures 4.6 x 3.0 x 3.3 cm and demonstrates a normal echotexture. There is normal color Doppler flow. There is a dominant follicle visualized. No fluid is present within the cul-de-sac. There is a single, live intrauterine gestation identified with a heart rate of 166 beats per minute and a crown-rump length measurement of 2.1 cm, correlating to a gestational age of 8 weeks 5 days (+/- 5 days). There is no subchorionic hemorrhage visualized. A yolk sac is visualized. IMPRESSION: 1. Single, live intrauterine gestation 8 weeks, 6 days by LMP. Today's ultrasound measurements correlate with a gestational age of 8 weeks 5 days (+/- 5 days). FRED by today's ultrasound is 10/15/2025. 2. Normal color Doppler evaluation of the bilateral ovaries. Interpreted by: Electronically signed by BEVERLY CHAN II, MD, PHD at 11-Mar-2025 10:13:58 AM [facility] ALLERGIES No Allergies Records Found ENCOUNTERS ADMIT/DISCHARGE ACCOUNT NUMBER ADMITTING ENCOUNTER CLASS LOCATION SOURCE 07/13/2025/ 5 [id number] Ambulatory Building:[facility] EPIC 06/15/2025/ 5 [id number] Ambulatory Building:[facility] EPIC 05/31/2025/ 5 [id number] Ambulatory Building:[facility] EPIC 05/18/2025/ 5 [id number] Ambulatory Building:[facility] EPIC 04/06/2025/ 5 [id number] Ambulatory Building:[facility] EPIC 04/05/2025/ 5 [id number] Ambulatory Building:[facility] EPIC 03/10/2025/ 5 [id number] Ambulatory Building:[facility] EPIC 03/10/2025/ 5 [id number] Ambulatory Building:[facility] EPIC 09/07/2024/ 4 [id number] Ambulatory Building:[facility] EPIC PAYERS ENCOUNTER GUARANTOR PAYER SUBSCRIBER SOURCE 07/13/2025 BLANKENSHIPDOB: [place], [place] [address]Whn: (HP) Primary Insurance:[employer] MEDICAIDPolicy Number: [id number] Date:2025-06-27 BLANKENSHIPDOB: [id number] [place] [address] [facility] EPIC 06/15/2025 BLANKENSHIPDOB: [place], [place] [address]Swz: (HP) [place] Insurance[place] Number: [id number] Date:2025-02-21 B BLANKENSHIPDOB: [id number] [place] [address] [facility] EPIC 06/15/2025 Secondary Insurance:[facility]Policy Number: [id number] Date:2025-04-26 B BLANKENSHIPDOB: [id number] [place] [address] [facility] EPIC 05/31/2025 BLANKENSHIPDOB: [place], [place] [address]Lgw: (HP) Primary Insurance:[facility]Policy Number: [id number] Date:2025-05-27 B BLANKENSHIPDOB: [id number] [place] [address] [facility] EPIC 05/18/2025 BLANKENSHIPDOB: [place], [place] [address]Zcl: (HP) [place] Insurance:[place] Number: [id number] Date:2025-02-21 BLANKENSHIPDOB: [id number] [place] [address] [facility] EPIC 04/06/2025 BLANKENSHIPDOB: [place], [place] [address]Jyz: (HP) [place] Number: [id number] Date:2025-02-21 BLANKENSHIPDOB: [id number] [place] [address] [facility] EPIC 04/05/2025 BLANKENSHIPDOB: [place] [address]Zhz: (HP) [place] Number: [id number] Date:2025-02-21 B BLANKENSHIPDOB: [id number] [place] [address] [facility] EPIC 03/10/2025 BLANKENSHIPDOB: [place], [place] [address]Yvq: (HP) [place]: [id number] Date:2025-02-21 BLANKENSHIPDOB: [id number] [place] [address] [facility] EPIC 03/10/2025 BLANKENSHIPDOB: [place] [address]Foe: (HP) [place] Number: [id number] Date:2025-02-21 BLANKENSHIPDOB: [id number] [place] [address] [facility] EPIC 09/07/2024 BLANKENSHIPDOB: [place] [address]Sia: (HP) Primary Insurance:[employer] MEDICAIDPolicy Number: [id number] Date:2023-09-26 BLANKENSHIPDOB: [id number] [place] [address] [facility] EPIC
--- OUTSIDE RECORDS SUMMARY | 2025-07-25 12:08 | XMS_ITS | Patient Health Record ---
Author Organization [facility] Address [address] [place] [address] Care Team Providers Care Analytics Leader Name Role Phone Bethany Wells Primary Care Provider [phone] Dr. Adolfo Reagan Unavailable [phone] Charlee Lawrence Unavailable [phone] Reason For Referral No Information Plan Of Treatment No Information Insurance Providers Payer Name Payer Address Payer Phone Subscriber Number Group Number Insured Name Patient Relationship to Insured Coverage Start Date Coverage End Date Dental [place] [employer] [address] [address] [place] [address] [id number] JUNIOR DANETTE TREJO Self - patient is the insured 3 Dental Wrap [facility] [place] [address] [place] [address] [id number] TAMARA HIP, DANETTE Self - patient is the insured 3 zAnthem BCBS Medicaid- termed 22 [address] [place] [address] [id number] BLANK HIP, Self - patient is the insured 2 3 zDENTAL DQ [employer] -termed 22 [address] [place] [address] [id number] BLANK HIP Self - patient is the insured 2 3 zDental MEDICAID [facility] after [employer] -termed 22 [address] [place] [address] [id number] DANETTE HENRY Self - patient is the insured 2 3 Dental [employer] DQ Terminate d 24 [address] [facility] [place] [address] [id number] DANETTE HENRY Self - patient is the insured 3 3 Dental Wrap [facility] Tuttle BCBS Termed 4 [address] [place] [address] [id number] DANETTE HENRY Self - patient is the insured 3 3
[2025-07-25 13:26] LABS: Hematocrit 32.0 % (36.0-48.0); Hemoglobin 10.4 g/dL (12.0-16.0); Immature Granulocytes Abs Auto 0.03 10^3/uL (0.00-0.03); Immature Granulocytes Pct Auto 0.4 % (0.0-0.5); Lymphocytes Absolute Auto 1.0 10^3/uL (1.2-3.8); Mean Corpuscular HGB Conc 32.5 g/dL (29.9-35.2); Mean Corpuscular Hemoglobin 26.2 pg (26.7-34.0); Mean Corpuscular Volume 80.6 fL (81.0-99.0); Platelet Count 177 10^3/uL (150-450); Red Blood Count 3.97 10^6/uL (4.20-5.40); White Blood Count 7.1 10^3/uL (4.0-11.0)
[2025-07-25 13:45] LABS: Glucose 1 Hour 139 mg/dL (<130)
== END 2025-07-25 12:06 | disposition home or self-care (01) ==
LOC: LAB 12:06
PROVIDERS: PCP Family Medicine; Visit Provider Obstetrics & Gynecology
DX: Z13.1 Encounter for screening for diabetes mellitus (principal)
CPT/HCPCS: 36415; 82950; 85025

== ENCOUNTER 2025-08-19 12:02 | Observation (INO) | payer OTHER, SELFPAY ==
--- OUTSIDE RECORDS SUMMARY | 2024-03-01 09:30 | XMS_ITS ---
Author Organization [facility] Address [address] [place] [address] Care Team Providers Care Diesel Engine Engineer Name Role Phone Bethany Wells Primary Care Provider Nate Gutierrez [facility] [phone] REASON FOR VISIT FILLING Encounters Encounter Location Date Provider Diagnosis [address] [place] [address] 03/01/2024 Nate Gutierrez Plan Of Treatment No Information Progress Notes * BDOB:11/2004 (19 yo F)Acc No.[id number]:03/01/2024 Patient:?AYALA :?Nate Gaytan DDSDOB:2005???Age:18 Y???Sex: FemaleDate:03/01/2024hone:[phone]:[address] IK-[id number]:Bethany Guerrero Subjective: * Chief Complaints: * F ILLING * Electronic signature of Nate Gutierrez on 08/19/2025 at 12:08 PM EDTSign off status: Pending * Provider: Alyssia Gaytan DDS Date: 0 03/01/2024 Generated for Printing/Faxing/eTransmitting on:?08/19/2025 12:08 PM EDT
--- OUTSIDE RECORDS SUMMARY | 2024-08-16 10:00 | XMS_ITS ---
Author Organization [facility] Address [address] [place] [address] Care Team Providers Care Primer Waterproofing Machine Operator Name Role Phone Bethany Wells Primary Care Provider Charlee Lawrence Unavailable [phone] REASON FOR VISIT 6 MONTHS Encounters Encounter Location Date Provider Diagnosis [facility] [address] [place] [address] 08/16/2024 Charlee Keithgamaliel Plan Of Treatment No Information Progress Notes * BDOB:11/2004 (19 yo F)Acc No.[id number]:08/16/2024 Patient:?LUCY :?Charlee LawrenceDOB:2005???Age:18 Y???Sex: FemaleDate:08/16/2024hone:[phone]:SUDHEER YU [id number]:Bethany Guerrero Subjective: * Chief Complaints: * 6 MONTHS * Electronic signature of Charlee Lawrence on 08/19/2025 at 12:08 PM EDTSign off status: Pending * Provider: Dru Lawrence Date: Generated for Printing/Faxing/eTransmitting on:?08/19/2025 12:08 PM EDT
--- OUTSIDE RECORDS SUMMARY | 2025-04-27 06:00 | XMS_ITS ---
Author Organization [facility] Address [address] [place] [address] Care Team Providers Care Cyber Transport Systems Specialist Name Role Phone Bethany Wells Primary Care Provider [phone] Dr. Adolfo Reagan [facility] [phone] REASON FOR VISIT JAW AND TOOTH PAIN Encounters Encounter Location Date Provider Diagnosis [facility] [address] [place] [address] 04/27/2025 Adolfo Reagan Plan Of Treatment No Information Progress Notes * BDOB:11/2004 (19 yo F)Acc No.[id number]:04/27/2025 Patient:? :Yelena Reagan DDSDOB:2005???Age:19 Y???Sex: FemaleDate:04/27/2025Phone:[phone]:SUDHEER YU [id number]:Bethany Guerrero Subjective: * Chief Complaints: * J AW AND TOOTH PAIN Billing Information: * Procedure Codes: * Electronic signature of Dr. Adolfo Reagan , [facility], [id number] on 08/19/2025 at 12:07 PM EDTSign off status: Pending * Provider: Parrish Reagan DDS Date: 0 04/27/2025 Generated for Printing/Faxing/eTransmitting on:?08/19/2025 12:07 PM EDT
--- OUTSIDE RECORDS SUMMARY | 2025-05-10 06:00 | XMS_ITS ---
Author Organization [facility] Address [address] [place] [address] Care Team Providers Care Flight Test Mechanic Name Role Phone Bethany Wells Primary Care Provider [phone] Dr. Adolfo Reagan [facility] [phone] REASON FOR VISIT JAW AND TOOTH PAIN Encounters Encounter Location Date Provider Diagnosis [facility] [address] [place] [address] 05/10/2025 Adolfo Reagan Plan Of Treatment No Information Progress Notes * BDOB:11/2004 (19 yo F)Acc No.[id number]:05/10/2025 Patient:? :Yelena Reagan DDSDOB:2005???Age:19 Y???Sex: FemaleDate:05/10/2025Phone:[phone]:SUDHEER YU [id number]:Bethany Guerrero Subjective: * Chief Complaints: * J AW AND TOOTH PAIN * Electronic signature of Dr. Adolfo Reagan , [facility], [id number] on 08/19/2025 at 12:08 PM EDTSign off status: Pending * Provider: Parrish Reagan DDS Date: 0 05/10/2025 Generated for Printing/Faxing/eTransmitting on:?08/19/2025 12:08 PM EDT
--- OUTSIDE RECORDS SUMMARY | 2025-07-13 15:20 | XMS_ITS | Encounter Summary ---
Author Organization [facility] Address [address] [place] [address] Care Team Providers Care Certified Massage Therapist Name Role Phone Eliana Flanagan MD Primary Care Provider [phone] Reason for Visit * ReasonCommentsRoutine Visit Encounter Details DateTypeDepartmentCare Team (Latest Contact Info)Xukmppfoxll43/17/2025 3:20 PM EDTRoutine [facility] [address] [place] [phone] Alex Antunez DO [address] [place], [facility]11 Cystitis (Primary Dx); 26 weeks gestation of ([facility]); Second trimester ([facility]); Gastroesophageal reflux in ([facility]); Size of fetus inconsistent with dates, antepartum ([facility]) Social History Tobacco UseTypesPacks/DayYears UsedDateSmoking Tobacco: NeverPassive Smoke Exposure: NeverSmokeless Tobacco: NeverAlcohol UseStandard Drinks/WeekComments Never0 (1 standard drink = 0.6 oz pure alcohol)PHQ-2AnswerDate RecordedPatient Health Questionnaire-2 Iajyj362Estimated Date of Delivery FhykummdXwy36/19/2025Based on last menstrual period of 01/07/2025Sex and Gender InformationValueDate RecordedSex Assigned at BirthNot on fileLegal SexFemale 01/08/2023 6:51 PM EDTGender IdentityNot on fileSexual OrientationNot on file documented as of this encounter Last Filed Vital Signs Vital SignReadingTime TakenCommentsBlood Dkxgefwg218/6809 3:28 PM EDT Pulse--Temperature--Respiratory Rate--Oxygen Saturation--Inhaled Oxygen Concentration--Vxjlps31.8 kg (167 lb 1.9 oz)07/13/2025 3:28 PM [...] nursing note reviewed. Exam conducted with a field logistics coordinator present. Vitals: Estimated body mass index is 28.69 kg/m?? as calculated from the following: Height as of 04/05/25: 5' 4 . Weight as of this encounter: 167 lb 1.9 oz. BP: 120/68 Patient's last menstrual period was 01/07/2025. ASSESSMENT & PLAN ICD-10-CM 1. Cystitis N30.90 nitrofurantoin, macrocrystal-monohydrate, (Macrobid) 100 MG capsule Urine culture 2. 26 weeks gestation of ([facility]) Z3A.26 POCT urinalysis dipstick manually resulted 3. Second trimester ([facility]) Z34.92 POCT urinalysis dipstick manually resulted US OB follow up transabdominal approach 4. Gastroesophageal reflux in ([facility]) O99.619 omeprazole (PriLOSEC) [address] [...] Plan of Treatment DateTypeDepartmentCare Team (Latest Contact Info)Rqlypwfbymc35/30/2025 3:20 PM EDTRoutine [facility] [address] [place] [phone] Munira Yu PA [address] [place] [address] NameTypePriorityAssociated DiagnosesOrder ScheduleUrine cultureMicrobiology Routine Cystitis Ordered: 07/13/2025documented as of this encounter Procedures Procedure NamePriorityDate/TimeAssociated DiagnosisCommentsPOCT URINALYSIS IFDQIDRFJxyhgng97/17/2025 3:34 PM EDT 26 weeks gestation of ([facility]) Second trimester ([facility]) documented in this encounter Results * [...] 26 weeks gestation of ([facility]) Second trimester ([facility]) state, incidental Gastroesophageal reflux in ([facility]) Size of fetus inconsistent with dates, antepartum ([facility]) Second trimester ([facility]) state, incidental Cystitis Unspecified cystitis Size of fetus inconsistent with dates, antepartum ([facility]) documented in this encounter Care Teams Team MemberRelationshipSpecialtyStart DateEnd Date Eliana Flanagan MD [address] [place] [address] PCP - GeneralFamily Medicine03/04/23documented as of this encounter
--- OUTSIDE RECORDS SUMMARY | 2025-07-27 13:50 | XMS_ITS | Encounter Summary ---
Author Organization [facility] Address [address] [facility] [place] [address] Care Team Providers Care First Officer And Flight Instructor Name Role Phone Eliana Flanagan MD Primary Care Provider [phone] Reason for Visit * ReasonCommentsRoutine Visit Encounter Details DateTypeDepartmentCare Team (Latest Contact Info)Iokyhaldyly26/01/2025 1:50 PM EDTRoutine [facility] [address] [place] [address] Darlene Olmstead, TOUR DRIVER [address] [place] [address] Anemia, unspecified type (Primary Dx); 28 weeks gestation of ([facility]); Third trimester ([facility]); Elevated glucose tolerance test Social History Tobacco UseTypesPacks/DayYears UsedDateSmoking Tobacco: NeverPassive Smoke Exposure: NeverSmokeless Tobacco: NeverAlcohol UseStandard Drinks/WeekComments Never0 (1 standard drink = 0.6 oz pure alcohol)PHQ-2AnswerDate RecordedPatient Health Questionnaire-2 Cmlpq839Estimated Date of Delivery TsnaushsYcj65/19/2025Based on last menstrual period of 01/07/2025Sex and Gender InformationValueDate RecordedSex Assigned at BirthNot on fileLegal SexFemale 01/08/2023 6:51 PM EDTGender IdentityNot on fileSexual OrientationNot on file documented as of this encounter Last Filed Vital Signs Vital SignReadingTime TakenCommentsBlood Eqifbyya500/7010 1:59 PM EDT Pulse--Temperature--Respiratory Rate--Oxygen Saturation--Inhaled Oxygen Concentration--Ohrhgo60.2 kg (168 lb)07/27/2025 1:59 PM EDTHeight--Body Mass [...] nursing note reviewed. Exam conducted with a eeg tech present. Vitals: Estimated body mass index is 28.84 kg/m?? as calculated from the following: Height as of 04/05/25: 5' 4 . Weight as of this encounter: 168 lb. BP: 112/70 Patient's last menstrual period was 01/07/2025. ASSESSMENT & PLAN ICD-10-CM 1. Anemia, unspecified type D64.9 iron polysaccharides (ProFe) 391.3 (180 Fe) MG capsule 2. 28 weeks gestation of ([facility]) Z3A.28 POCT urinalysis dipstick manually resulted 3. Third trimester ([facility]) Z34.93 4. Elevated glucose tolerance test R73.09 [...] Plan of Treatment DateTypeDepartmentCare Team (Latest Contact Info)Nydjemswprg15/30/2025 3:20 PM EDTRoutine [facility] [address] [place] [address] Munira Yu PA [address] [place] [address] NameTypePriorityAssociated DiagnosesOrder ScheduleGlucose tolerance, 3 hoursLab Routine Elevated glucose tolerance test Expected: 07/27/2025 (Approximate), Expires: 07/27/2026documented as of this encounter Procedures Procedure NamePriorityDate/TimeAssociated DiagnosisCommentsPOCT URINALYSIS WKGBOXCOBflgniu82/01/2025 2:06 PM EDT 28 weeks gestation of ([facility]) documented in this encounter Results * POCT [...] unspecified type- Primary 28 weeks gestation of ([facility]) Third trimester ([facility]) state, incidental Elevated glucose tolerance test Impaired glucose tolerance test documented in this encounter Care Teams Team MemberRelationshipSpecialtyStart DateEnd Date Eliana Flanagan MD [address] [place] [address] PCP - GeneralFamily Medicine03/04/23documented as of this encounter
--- OUTSIDE RECORDS SUMMARY | 2025-08-11 14:30 | XMS_ITS | Encounter Summary ---
Author Organization [facility] Address [address] [place] [address] Care Team Providers Care Traffic Control Signaler Name Role Phone Eliana Flanagan MD Primary Care Provider [phone] Encounter Details DateTypeDepartmentCare Team (Latest Contact Info)Cmnlhzacdfn91/16/2025 2:30 PM EDTAncillary Procedure [facility] [address] [place] [address] Second trimester ([facility]); Cystitis; Size of fetus inconsistent with dates, antepartum ([facility]) Social History Tobacco UseTypesPacks/DayYears UsedDateSmoking Tobacco: NeverPassive Smoke Exposure: NeverSmokeless Tobacco: NeverAlcohol UseStandard Drinks/WeekComments Never0 (1 standard drink = 0.6 oz pure alcohol)PHQ-2AnswerDate RecordedPatient Health Questionnaire-2 Ejwyj950Estimated Date of Delivery LnpipepuTnz37/19/2025Based on last menstrual period of 01/07/2025Sex and Gender InformationValueDate RecordedSex Assigned at BirthNot on fileLegal SexFemale 01/08/2023 6:51 PM EDTGender IdentityNot on fileSexual OrientationNot on file documented as of this encounter Plan of Treatment DateTypeDepartmentCare Team (Latest Contact Info)Qtlnlvgqrat82/30/2025 3:20 PM EDTRoutine [facility] [address] [place] [address] Munira Yu PA [address] [place] [address] documented as of this encounter Procedures Procedure NamePriorityDate/TimeAssociated DiagnosisCommentsUS OB FOLLOW UP TRANSABDOMINAL LNRPKOPQXkozqwr76/17/2025 12:55 PM EDT Second trimester ([facility]) Cystitis [...] MD Authorizing ProviderResult TypeResult StatusDarlene Olmstead NPIMG [facility] PROCEDURESFinal Result documented in this encounter Visit Diagnoses Diagnosis Second trimester ([facility]) state, incidental Cystitis Unspecified cystitis Size of fetus inconsistent with dates, antepartum ([facility]) documented in this encounter Care Teams Team MemberRelationshipSpecialtyStart DateEnd Date Eliana Flanagan MD [address] [facility] [address] [place] [address] PCP - GeneralFamily Medicine03/04/23documented as of this encounter
--- OUTSIDE RECORDS SUMMARY | 2025-08-11 15:00 | XMS_ITS | Encounter Summary ---
Author Organization [facility] Address [address] [facility] [place] [address] Care Team Providers Care Engineer Technical Staff Name Role Phone Eliana Flanagan MD Primary Care Provider [phone] Reason for Visit * ReasonCommentsRoutine Visit Encounter Details DateTypeDepartmentCare Team (Latest Contact Info)Mcahdtqdnrc43/16/2025 3:00 PM EDTRoutine [facility] [address] [place] [address] Munira Yu PA [address] [facility] [address] [place], [facility]11 Third trimester ([facility]); 30 weeks gestation of ([facility]) Social History Tobacco UseTypesPacks/DayYears UsedDateSmoking Tobacco: NeverPassive Smoke Exposure: NeverSmokeless Tobacco: NeverAlcohol UseStandard Drinks/WeekComments Never0 (1 standard drink = 0.6 oz pure alcohol)PHQ-2AnswerDate RecordedPatient Health Questionnaire-2 Sgaqb594Estimated Date of Delivery KtraxtloUjy78/19/2025Based on last menstrual period of 01/07/2025Sex and Gender InformationValueDate RecordedSex Assigned at BirthNot on fileLegal SexFemale 01/08/2023 6:51 PM EDTGender IdentityNot on fileSexual OrientationNot on file documented as of this encounter Last Filed Vital Signs Vital SignReadingTime TakenCommentsBlood Niepbbhk187/6208/11/2025 3:16 PM EDT Pulse--Temperature--Respiratory Rate--Oxygen Saturation--Inhaled Oxygen Concentration--Qciizh59.4 kg (168 lb 8 oz)08/11/2025 3:16 PM [...] Size of fetus inconsistent with dates, antepartum ([facility]) 08/10/2025 Resolved Ambulatory Problems Diagnosis Date [...] ASSESSMENT & PLAN ICD-10-CM 1. Third trimester ([facility]) Z34.93 POCT urinalysis dipstick manually resulted 2. 30 weeks gestation of ([facility]) Z3A.30 Return OB: Patient presents [...] Plan of Treatment DateTypeDepartmentCare Team (Latest Contact Info)Mqrrziunizx83/30/2025 3:20 PM EDTRoutine [facility] [address] [place] [phone] Munira Yu PA [address] [place] [address] documented as of this encounter Procedures Procedure NamePriorityDate/TimeAssociated DiagnosisCommentsPOCT URINALYSIS XXPGJEDHSjzoxvk03/16/2025 3:21 PM EDT Third trimester ([facility]) documented in this encounter Results * [...] Location / LateralityCollection Method / VolumeCollection TimeReceived TukdXjrcw01/16/2025 3:21 PM EDT Narrative Authorizing ProviderResult TypeResult StatusMunira Yu PAPOINT OF CARE TEST ENTER/EDIT ORDERABLESFinal Result documented in this encounter Visit Diagnoses Diagnosis Third trimester ([facility]) state, incidental 30 weeks gestation of ([facility]) documented in this encounter Care Teams Team MemberRelationshipSpecialtyStart DateEnd Date Eliana Flanagan MD [address] [phone] PCP - GeneralFamily Medicine03/04/23documented as of this encounter
--- OUTSIDE RECORDS SUMMARY | 2025-08-19 12:08 | XMS_ITS | Encounter Summary ---
Author Organization [facility] Address [address] [place] [address] Care Team Providers Care Hot Mill Tin Roller Name Role Phone Eliana Flanagan MD Primary Care Provider [phone] Encounter Details DateTypeDepartmentCare Team (Latest Contact Info)Pogskrntlyl08/10/2025Patient Outreach [facility] [address] [place] [phone] Munira Degroot LPN [address] [place] [address] Social History Tobacco UseTypesPacks/DayYears UsedDateSmoking Tobacco: NeverPassive Smoke Exposure: NeverSmokeless Tobacco: NeverAlcohol UseStandard Drinks/WeekComments Never0 (1 standard drink = 0.6 oz pure alcohol)PHQ-2AnswerDate RecordedPatient Health Questionnaire-2 Sslub911Estimated Date of Delivery DztcevacXjl40/19/2025Based on last menstrual period of 01/07/2025Sex and Gender InformationValueDate RecordedSex Assigned at BirthNot on fileLegal SexFemale 01/08/2023 6:51 PM EDTGender IdentityNot on fileSexual OrientationNot on file documented as of this encounter Progress Notes * Munira Degroot LPN - 08/05/2025 9:32 AM EDT Initial Outreach. Call to pt X2, LVM documented in this encounter Plan of Treatment DateTypeDepartmentCare Team (Latest Contact Info)Zwkxymyacbc08/30/2025 3:20 PM EDTRoutine [facility] [address] [place] [address] Munira Yu PA [address] [place], [place] [phone] documented as of this encounter Visit Diagnoses Not on filedocumented in this encounter Care Teams Team MemberRelationshipSpecialtyStart DateEnd Date Eliana Flanagan MD [address] [facility] [address] [place] [address] PCP - GeneralFamily Medicine03/04/23documented as of this encounter
--- OUTSIDE RECORDS SUMMARY | 2025-08-19 12:08 | XMS_ITS | CCD ---
Author Organization [facility] CliniSymi Care Team Providers Care Watch Adjuster Name Role Phone BENITEZ, DR MUNOZ Primary Care Unavailable KIRBY ATKINSON Attending Unavailable KIRBY ATKINSON Admitting Unavailable AHDOOT, JONI Consulting Unavailable Michelle, Harsha Consulting Unavailable KIRBY ATKINSON Consulting Unavailable KRYSTA, DR BURDICK Consulting Unavailable KARGRETCHEN, DR BURDICK Attending Unavailable BENITEZ, DR MUNOZ Primary Care Unavailable KARIMANIK, DR BURDICK Admitting Unavailable WEST, DR KIAN Pablo Consulting Unavailable KARASIK, DR BURDICK Consulting Unavailable KARASIK, DR BURDICK Attending Unavailable BENITEZ, DR MUNOZ Primary Care Unavailable KARIMANIK, DR BURDICK Admitting Unavailable ZIEBER, DR MELVIN Olmedo Consulting Unavailable Eliana Flanagan MD Primary Care Provider Jose Antonio Hernandes NP Unavailable JOSE ANTONIO HERNANDES Attending Unavailable SHANIA ANTUNEZ Attending Unavailable MUNIRA GARCIA Attending Unavailable MUNIRA GARCIA Referring Unavailable SHANIA ANTUNEZ Attending Unavailable SHANIA ANTUNEZ Attending Unavailable SHANIA ANTUNEZ Attending Unavailable DARLENE OLMSTEAD Attending Unavailable DARLENE OLMSTEAD Referring Unavailable MUNIRA GARCIA Attending Unavailable Allergies Allergy ClassificationReported Allergen(s)Allergy TypeDate of OnsetReaction(s) Facility (1 source)PenicillinsDrug allergy (disorder)[id number] [facility] Repository (20 sources)PenicillinsDrug Nbayhka31-42-5297DgdyogbDAOO Healthcare Medications Current Medications MedicationDrug Class(es)DatesSig (Normalized)Sig (Original)[id number] 200 actuat albuterol 0.09 mg/actuat metered dose inhaler (9 sources)beta2-Adrenergic Agonist End: 03-14-2408qkav 2 puff(s) by inhalation every four hours for wheezing albuterol HFA (ProAir HFA) 90 mcg/act inhaler Inhale 2 puffs every 4 (four) hours if needed for wheezing or shortness of breath 04/05/2025 Discontinued (Other)diphenhydrAMINE hydrochloride 50 mg oral tablet (11 sources)Histamine-1 Receptor AntagonistdiphenhydrAMINE (BENADryl) 50 MG tablet Take 50 mg by mouth as needed at bedtime for itching Activefexofenadine hydrochloride 180 mg oral tablet (9 sources)Histamine-1 Receptor Antagonist End: 02-50-0212tpur 1 tablet by mouth once dailyfexofenadine ([facility] Allergy Relief) 180 MG tablet Take 180 mg by mouth Daily 04/05/2025 Discontinued (Other) magnesium oxide 400 mg oral tablet (5 sources)Start: 03-10-2025 End: 32-14-1001voft 1 tablet by mouth once dailymagnesium oxide (Mag-Ox) 400 MG tablet Indications: headache in first trimester Take 1 tablet (400 mg) by mouth Daily 30 tablet 11 03/10/2025 04/05/2025 Discontinued (Other) nitrofurantoin, macrocrystals 25 mg / nitrofurantoin, monohydrate 75 mg oral capsule (5 sources)Nitrofuran AntibacterialStart: 07-13-2025 End: 88-71-8859lziu 1 capsule by mouth in the morningnitrofurantoin, macrocrystal-monohydrate, (Macrobid) 100 MG capsule Indications: Cystitis Take 1 capsule (100 mg) by mouth in the morning and 1 capsule (100 mg) before bedtime. Do all this for 7 days. 14 capsule 07/13/2025 07/20/2025 ActiveStart: 04-06-2025 End: 71-81-1439jwhu 1 capsule by mouth in the morningnitrofurantoin, macrocrystal-monohydrate, (Macrobid) 100 MG capsule Indications: Urinary tract infection without hematuria, site unspecified Take 1 capsule (100 mg) by mouth in the morning and 1 capsule (100 mg) before bedtime. Do all this for 7 days. 14 capsule 04/06/2025 04/13/2025 ActiveStart: 03-10-2025 End: 79-12-1712hili 1 capsule by mouth in the morningnitrofurantoin, macrocrystal-monohydrate, (Macrobid) 100 MG capsule Indications: UTI symptoms Take 1 capsule (100 mg) by mouth in the morning and 1 capsule (100 mg) before bedtime. Do all this for 7 days. 14 capsule 03/10/2025 03/17/2025 Active omeprazole 20 mg delayed release oral capsule (8 sources)Proton Pump InhibitorStart: 07-13-2025 End: 97-88-5733tegh 1 capsule by mouth before mealtimeomeprazole (PriLOSEC) [address] capsule Indications: Gastroesophageal Reflux Disease , Heartburn Take 1 capsule (20 mg) by mouth in the morning. Take before meals. Do not crush or chew. 30 capsule 3 07/13/2025 08/12/2025 Activeondansetron 4 mg disintegrating oral tablet (8 sources)Serotonin-3 Receptor AntagonistStart: 03-10-2025 End: 54-80-6235jvyc 1 tablet by mouth every six hours for nauseaondansetron ODT (Zofran-ODT) 4 MG disintegrating tablet Indications: Nausea and vomiting in Take 1 tablet (4 mg) by mouth every 6 (six) hours if needed for nausea or vomiting 30 tablet 2 03/10/2025 04/09/2025 Activepolysaccharide iron complex 391 mg oral capsule (6 sources)Start: 07-27-2025 End: 71-51-8061rxjg 1 capsule by mouth once dailyiron polysaccharides (ProFe) 391.3 (180 Fe) MG capsule Indications: Anemia, unspecified type Take 1capsule (391.3 mg) by mouth Daily 30 capsule 6 07/27/2025 08/26/2025 ActiveStart: 04-06-2025 End: 06-88-0917cbxu 1 capsule by mouth once dailyiron polysaccharides (ProFe) 391.3 (180 Fe) MG capsule Indications: Other iron deficiency anemia Take 1 capsule (391.3 mg) by mouth Daily 30 capsule 6 04/06/2025 05/06/2025 Active MV-Min-Fe Fum-FA-DHA ( 1 PO) (11 sources) MV-Min-Fe Fum-FA-DHA ( 1 PO) Take 1 tablet by mouth Daily Active Completed/Discontinued Medications MedicationDrug Class(es)DatesSig (Normalized)Sig (Original)FLUoxetine 10 mg oral capsule (5 sources)Serotonin Reuptake InhibitorStart: 11-18-2022 End: 89-83-4351jzhr 1 capsule by mouth once dailyFLUoxetine (PROzac) 10 MG capsule Take 1 capsule by mouth 1 (one) time each day at the same time 03/10/2025 Discontinued (Other)fluticasone propionate 0.05 mg/actuat metered dose nasal spray (5 sources)Corticosteroid End: 55-93-9696ekab 1 spray(s) nasal route once dailyfluticasone (Flonase) 50 MCG/ACT nasal spray Administer 1 spray into each nostril 1 (one) time eachday at the same time 03/10/2025 Discontinued (Other)24 hr metFORMIN hydrochloride 500 mg extended release oral tablet (5 sources)BiguanideStart: 06-07-2024 End: 07-86-9671hrws 1 tablet by mouth every twenty-four hours at mealtime metFORMIN XR (Glucophage-XR) 500 MG 24 hr tablet Indications: PCOS (polycystic ovarian syndrome) Take 1 tablet (500 mg) by mouth in the evening. Take with meals Do not crush, chew, or split. 30 tablet 11 06/07/2024 03/10/2025 Discontinued (Other) Problems Problem ClassificationProblemDateDocumented DateEpisodic/ChronicAbdominal pain (10 sources)Pelvic and perineal pain; Translations: [Unspecified abdominal pain] Onset: 79-70-3000QdyppclbWqfafs (20 sources)Exercise-induced asthma; Translations: [Exercise induced bronchospasm]Onset: 891089-17-4290TrlkrvoOvdjepzmns and other anemia (2 sources)Iron deficiency anemia; Translations: [Other iron deficiency anemias] 19-52-3000KfmrasewCjvkskkcps and other anemia (2 sources)Anemia; Translations: [Anemia, unspecified]79-53-9161YqhsgpvwVlxhfjhf mellitus without complication (2 sources)Abnormal glucose tolerance test; Translations: [Other abnormal glucose]33-03-3048MlcgkwdoUlqwiiuls of teeth and jaw (2 sources)Jaw pain; Translations: [Jaw pain]04-99-9236GyixhfzqNkjdygkwrdjga congenital anomalies (1 source)Bicornate uterus; 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]Onset: 10-18-2021 ChronicGenitourinary symptoms and ill-defined conditions (1 source)Urinary symptoms ; Translations: [Unspecified symptoms and signs involving the genitourinary system]33-39-5295LeliysrsZadpjgivwimaj and screening for infectious disease (2 sources)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; Translations: [Contact with and (suspected) exposure to infections with a predominantly sexual mode of transmission]37-26-9949GmnceylpTddld disorders and dislocations; trauma-related (20 sources)Patellofemoral syndrome of right knee; Translations: [Patellofemoral disorders, right knee]Onset: 293925-20-0872RqozfevKqpfgaoaj disorders (1 source)Missed period; Translations: [Irregular menstruation, unspecified] 27-94-9841NkaelqvYrte disorders (20 sources)Severe major depression, single episode, without psychotic features; Translations: [Major depressive disorder, single episode, severe without psychotic features]Onset: 152819-55-5722BcbexqtVsrgm complications of (1 source)Vomiting of , unspecified; Translations: [Unspecified vomiting of , unspecified as to episode of care or not applicable] 83-69-4621StyzryttVypfn complications of (1 source)Headache; Translations: [Other specified related conditions, first trimester]58-36-3981TvxdaxljEirem complications of (2 sources)Gastroesophageal reflux disease in ; Translations: [Diseases of the digestive system complicating , unspecified trimester] 36-02-5174YxjyhpeoRrldl complications of (2 sources) size does not accord with dates; Translations: [Uterine size- date discrepancy, unspecified trimester]Onset: 751976-35-8910YluthgqtLvmwn ear and sense organ disorders (2 sources)Bilateral earache; Translations: [Otalgia, bilateral]04-05-2025 EpisodicOther endocrine disorders (20 sources)Polycystic ovary syndrome; Translations: [Polycystic ovarian syndrome]Onset: 927494-16-9128AeexmhdWpeif endocrine disorders (2 sources)Disorder of endocrine system; Translations: [Endocrine disorder, unspecified]27-47-0934AeqjupykGrbtq female genital disorders (2 sources)Pain in female genitalia on intercourse; Translations: [Unspecified dyspareunia]93-41-5193CmzbihrFeota female genital disorders (2 sources)Vaginal discharge; Translations: [Other specified noninflammatory disorders of vagina]82-20-8904ZtesqldcEyity and delivery including normal (14 sources); Translations: [Encounter for supervision of normal , unspecified, unspecified trimester]11-38-9601CvuqcseiTsaps screening for suspected conditions (not mental disorders or infectious disease) (4 sources)Patient encounter status; Translations: [Encounter for other specified screening]77-36-6074ZphgqfseJmywffi cyst (5 sources)Unspecified ovarian cyst, left side; Translations: [UNSPECIFIED OVARIAN CYST LEFT SIDE]Onset: 23-37-5980WlxjcavhJjzwvqtf codes; unclassified (2 sources)Gestation period, 12 weeks; Translations: [12 weeks gestation of ]46-07-2045JtzlqmcbPipfwywc codes; unclassified (2 sources)Gestation period, 18 weeks; Translations: [18 weeks gestation of ]49-44-6441PrqnoecjNqxuixhk codes; unclassified (2 sources)Gestation period, 22 weeks; Translations: [22 weeks gestation of ]71-94-0614SqlrgbkgYekunobv codes; unclassified (2 sources)Gestation period, 26 weeks; Translations: [26 weeks gestation of ]44-55-2848GkwfiedjGxshcpki codes; unclassified (2 sources)Gestation period, 28 weeks; Translations: [28 weeks gestation of ]88-03-5594LbkwlhotUbpnmezc codes; unclassified (2 sources)Gestation period, 30 weeks; Translations: [30 weeks gestation of ]75-59-8791KflcrzzkDskxyhe tract infections (4 sources)Urinary tract infectious disease; Translations: [Urinary tract infection, site not specified]58-90-0410Vrovralg Results Test NameValueInterpretationReference RangeFacilityUS OB FOLLOW UP TRANSABDOMINAL APPROACHon 88-49-9738OL OB FOLLOW UP TRANSABDOMINAL APPROACH FINDINGS: Comparison May 31, 2025. A single, live intrauterine is present with normal cardiac rate of 135 beats per minute. Normal activity and amniotic fluid volume. Amniotic fluid index is 17 cm. Morphology is grossly normal. The current sonographic age is 30 weeks and 5 days, based on the following measurements: BPD 7.7 cm (30 weeks, 6 days) Head Circumference 29.1 cm (32 weeks, 0 days) Abdominal Circumference 25.9 cm (30 weeks, 0 days) Femur Length 5.7 cm (29 weeks, 5 days) Presentation Cephalic Weight (g) by Percentile 18.7% * These measurements result in an estimated date of delivery of October 15, 2025. The current estimated weight is 1528 grams (3 pounds, 6 ounces). IMPRESSION: 1. Single, live intrauterine , current sonographic age of 30 weeks and 5 days, with an estimated date of delivery of October 15, 2025 (prior FRED October 14, 2025) 2. Current estimated weight 1528 grams, 18.7% weight by percentile (prior 31.6%) * Estimated Weight (g) by Percentile is based upon an accurate estimated age based on last menstrual period. TRANSCRIBED BY: ELECTRONICALLY SIGNED BY: Raheel KulkarnialNot AvailableComment on above:Order Comment: US OB SCAN FOR GROWTH Estimated Date of Delivery: 10/14/25 Gestational Age as of 07/13/2025: 04v5xGchtaqpbqz macro (dipstick) panel (U)on 48-53-4644Qkazkyldm, UANegativeNegative - 4(70) +++ mg/dLNOMS HealthcareBlood, UANegativeNegative - 50 Tarun/mcLNOMS HealthcareClarity, UAClearNOMS Healthcare Color, UAYellowNOMS HealthcareGlucose, UANegativeNegative - 2000(110) ++++ mg/dL NOMS HealthcareInterpretation and review of laboratory resultsAbnormalNOMS HealthcareKetones, UANegativeNegative - 160(16) ++++ mg/dLNOMS Healthcare Leukocytes, UANegativeNegative - 500+++ Joelle/mcLNOMS HealthcareNitrite, UA NegativeNegative - PositiveNOMS HealthcarepH, UA6.05 - 9NOMS HealthcareProtein, UANegativeNegative - 2000(20) ++++ mg/dLNOMS HealthcareSpec Grav, UA1.0151 - 1.03NOMS HealthcareUrobilinogen, UA0.20.2 - 12 mg/dLNOCedar County Memorial HospitalNOUT HealthcareUrinalysis macro (dipstick) panel (U)on 74-41-4592Tfjywhgpv, UA NegativeNegative - 4(70) +++ mg/dLNOUT HealthcareBlood, UANegativeNegative - 50 Tarun/mcLNOUT HealthcareClarity, UAClearNOMS HealthcareColor, UAYellowNOMS HealthcareGlucose, UANegativeNegative - 2000(110) ++++ mg/dLNOUT Healthcare Interpretation and review of laboratory resultsNormalFitzgibbon HospitalKetones, UA NegativeNegative - 160(16) ++++ mg/dLNOUT HealthcareLeukocytes, UANegative Negative - 500+++ Joelle/mcLNOUT HealthcareNitrite, UANegativeNegative - Positive NOMS HealthcarepH, UA75 - 9NOMS HealthcareProtein, UANegativeNegative - 2000(20) ++++ mg/dLNOMS HealthcareSpec Grav, UA1.0051 - 1.03NOUT HealthcareUrobilinogen, UA2.00.2 - 12 mg/dLNOCedar County Memorial HospitalNOMS HealthcareALL CBC WITH AUTO DIFFon 50-58-7864CBXHMUSWP ABSOLUTE GACI6WXJC HealthcareBasophils/100 WBC (Bld)0.3 %0.2 - 2.0 %NOMS HealthcareEosinophils/100 WBC (Bld)1.3 %0.9 - 7.0 %[facility] Erythrocyte distribution width (RBC) [Ratio]14.3 %11.0 - 15.0 %[facility] Hematocrit (Bld) [Volume fraction]32 %Low36.0 - 48.0 %[facility] HospitalHemoglobin (Bld) [Mass/Vol]10.4 g/dLLow12.0 - 16.0 g/dLNOCedar County Memorial HospitalIMMATURE GRANULOCYTES ABS AUTO0.03NOUT HealthcareImmature granulocytes/100 WBC (Bld)0.4 %0.0 - 0.5 % [facility] HospitalInterpretation and review of laboratory resultsAbnormalINTERMOUNTAIN HEALTHCARE HealthcareLYMPHOCYTES ABSOLUTE QFYM5OmyYEHT HealthcareLymphocytes/100 WBC (Bld) 14 %Low20.5 - 60.0 %[facility] InstituteH (RBC) [Entitic mass]26.2 pgLow26.7 - 34.0 pgNORusk Rehabilitation CenterHC (RBC) [Mass/Vol]32.5 g/dL29.9 - 35.2 g/dLFitzgibbon Hospital MCV (RBC) [Entitic vol]80.6 fLLow81.0 - 99.0 fLFitzgibbon HospitalMONOCYTES ABSOLUTE AUTO0.3NOUT HealthcareMonocytes/100 WBC (Bld)4 %1.7 - 12.0 %[facility] NEUTROPHILS ABSOLUTE AUTO5.7NOCedar County Memorial HospitalNeutrophils/100 WBC (Bld)80 %High43.0 - 75.0 %[facility] HospitalPlatelet mean volume (Bld) [Entitic vol]10.9 fL9.5 - 13.5 fLFitzgibbon HospitalTB EO #0.1NOMS [facility] HospitalTB QNT096QYGT [facility] HospitalTB RBC3.97 LowNOCedar County Memorial HospitalTB WBC7.1NOMS [facility] HospitalCLINISYNCNNorthwest Medical CenterUrinalysis macro (dipstick) panel (U)on 41-14-4126Wvkagqykd, UANegativeNegative - 4(70) +++ mg/dLNOMS HealthcareBlood, UANegativeNegative - 50 Tarun/mcLNOMS Healthcare Clarity, UAClearNOMS HealthcareColor, UAAmberNOMS HealthcareGlucose, UANegative Negative - 1999(110) ++++ mg/dLNOMS HealthcareInterpretation and review of laboratory resultsAbnormalNOUT HealthcareKetones, UANegativeNegative - 160(16) ++++ mg/dLNOMS HealthcareLeukocytes, UAPositiveNegative - 500+++ Joelle/mcLNOMS HealthcareNitrite, UAPositiveNegative - PositiveNOMS HealthcarepH, UA6.55 - 9 NOM HealthcareProtein, UAPositiveNegative - 2000(20) ++++ mg/dLNOMS Healthcare Spec Grav, UA1.0151 - 1.03NOMS HealthcareUrobilinogen, UA1.00.2 - 12 mg/dLNOUT HealthcareINTERMOUNTAIN [facility]ALTH[facility]ARE HealthcareUrinalysis macro (dipstick) panel (U)on 06-15-2025 Bilirubin, UANegativeNegative - 4(70) +++ mg/dLNOMS HealthcareBlood, UANegative Negative - 50 Tarun/mcLNOUT HealthcareClarity, UAClearNOMS HealthcareColor, UA YellowNOMS HealthcareGlucose, UANegativeNegative - 2000(110) ++++ mg/dLNOUT HealthcareInterpretation and review of laboratory resultsNormalNOUT Healthcare Ketones, UANegativeNegative - 160(16) ++++ mg/dLNOUT HealthcareLeukocytes, UA NegativeNegative - 500+++ Joelle/mcLNOUT HealthcareNitrite, UANegativeNegative - PositiveNOMS HealthcarepH, UA65 - 9NOMS HealthcareProtein, UANegativeNegative - 2000(20) ++++ mg/dLNOUT HealthcareSpec Grav, UA1.0151 - 1.03NOMS Healthcare Urobilinogen, UA1.00.2 - 12 mg/dLNOUT HealthcareNOUT HealthcareRECURRENT VAGINITIS (HTRX)on 10-99-7252ACSYILAEB VFLRUIO0JGMY HealthcareATOPOBIUM VAGINAE Not detectedNOMS HealthcareBVAB 2,3 (BACTERIAL VAGINOSIS ASSOCIATED BACTERIA 2, 3); MOBILUNCUS SPP22.558AbnormalNOUT HealthcareBVAB 2,3 (BACTERIAL VAGINOSIS ASSOCIATED BACTERIA 2, 3); MOBILUNCUS SPPDetectedAbnormalNOUT HealthcareCANDIDA ALBICANS, PARAPSILOSIS, HLQRQPMXMY9VLPI HealthcareCANDIDA ALBICANS, PARAPSILOSIS, TROPICALISNot detectedNOMS HealthcareCANDIDA CXYWPNON5UQXZ HealthcareCANDIDA GLABRATANot detectedNOMS HealthcareCANDIDA ECVTHT3OCRE HealthcareCANDIDA KRUSEINot detectedNOMS HealthcareCHLAMYDIA XPZJDLIIXJH0QYVY HealthcareCHLAMYDIA TRACHOMATISNot detectedNOMS HealthcareERMB, C; MEFA25.177 AbnormalNOMS HealthcareERMB, C; MEFADetectedAbnormalNOMS HealthcareGARDNERELLA AQITTUYNG74.544AbnormalNOMS HealthcareGARDNERELLA VAGINALISDetectedAbnormalNOMS HealthcareInterpretation and review of laboratory resultsAbnormalNOUT Healthcare MEGASPHAERA (TYPES 1, 2)0NOUT HealthcareMEGASPHAERA (TYPES 1, 2)Not detectedNOMS HealthcareMYCOPLASMA PNLDJNPWCB4JWFN HealthcareMYCOPLASMA GENITALIUMNot detected NOMS HealthcareNEISSERIA ANQZERKNYVZ3NJZG HealthcareNEISSERIA GONORRHOEAENot detectedNOMS HealthcareTET B, TET M21.747AbnormalNOMS HealthcareTET B, TET M DetectedAbnormalNOMS HealthcareTRICHOMONAS SSOLVJPVJ2ODLT HealthcareTRICHOMONAS VAGINALISNot detectedNOMS HealthcareNOMS HealthcareUS OB 14+ WEEKS ANATOMY SCAN on 48-53-9730SC OB 14+ WEEKS ANATOMY SCANFINDINGS: A single, live intrauterine is present with normal cardiac rate of 144 beats per minute. Normal activity and amniotic fluid volume. Morphology is grossly normal. The placenta isanterior, inferior margin located 9.0 proximal to the [...] 14, 2025. TRANSCRIBED BY: ELECTRONICALLY SIGNED BY: Narda Kulkarni AvailableComment on above:Order Comment: US OB ANATOMY SINGLE W US OB CERVICAL LENGTH Estimated Date of Delivery: 10/14/25 Gestational Age as of 05/18/2025: 00o7aAuwviwnsaw macro (dipstick) panel (U)on 90-14-7478Ekekjvmxt, UANegativeNegative - 4(70) +++ mg/dLNOMS HealthcareBlood, UANegativeNegative - 50 Atrun/mcLNOMS HealthcareClarity, UAClearNOMS Healthcare Color, UAYellowNOMS HealthcareGlucose, UANegativeNegative - 2000(110) ++++ mg/dL NOMS HealthcareInterpretation and review of laboratory resultsAbnormalNOMS HealthcareKetones, UANegativeNegative - 160(16) ++++ mg/dLNOMS Healthcare Leukocytes, UANegativeNegative - 500+++ Joelle/mcLNOUT HealthcareNitrite, UA NegativeNegative - PositiveNOMS HealthcarepH, UA6.55 - 9NOMS HealthcareProtein, UATraceNegative - 2000(20) ++++ mg/dLNOMS HealthcareSpec Grav, UA1.011 - 1.03 NOMS HealthcareUrobilinogen, UA0.20.2 - 12 mg/dLNOOzarks Medical Center Healthcare Urinalysis macro (dipstick) panel (U)on 98-02-6514Ceaoyxmob, UANegativeNegative - 4(70) +++ mg/dLNOUT HealthcareBlood, UAPositiveNegative - 50 Tarun/mcLNOUT HealthcareComment on above:traceClarity, UACloudyNOMS HealthcareColor, UAYellow [facility] HealthcareGlucose, UANegativeNegative - 1999(110) ++++ mg/dLINTERMOUNTAIN HEALTHCARE Healthcare Interpretation and review of laboratory resultsAbnormalNOUT HealthcareKetones, UANegativeNegative - 160(16) ++++ mg/dLINTERMOUNTAIN HEALTHCARE HealthcareLeukocytes, UATrace Negative - 500+++ Joelle/mcLINTERMOUNTAIN HEALTHCARE HealthcareNitrite, UAPositiveNegative - Positive NOMS HealthcareComment on above:positivepH, UA7.55 - 9NOMS HealthcareProtein, UA NegativeNegative - 2000(20) ++++ mg/dLNOUT HealthcareSpec Grav, UA1.021 - 1.03 NOMS HealthcareUrobilinogen, UA0.20.2 - 12 mg/dLSaint Joseph Hospital of Kirkwood Healthcare ALL CBC WITH AUTO DIFFon 49-48-1022GDLAIGEAX ABSOLUTE TYUN4ABTCCedar County Memorial Hospital Basophils/100 WBC (Bld)0.5 %0.2 - 2.0 %NOMS [facility] HospitalEosinophils/100 WBC (Bld) 2.5 %0.9 - 7.0 %NOMHeartland Behavioral Health ServicesErythrocyte distribution width (RBC) [Ratio]17.3 %High11.0 - 15.0 %NOMS HealthcareHematocrit (Bld) [Volume fraction]32.1 %Low36.0 - 48.0 %NOMHeartland Behavioral Health ServicesHemoglobin (Bld) [Mass/Vol]10.4 g/dLLow12.0 - 16.0 g/dL NOMHeartland Behavioral Health ServicesIMMATURE GRANULOCYTES ABS AUTO0.01NOUT HealthcareImmature granulocytes/100 WBC (Bld)0.1 %0.0 - 0.5 %[facility] HospitalInterpretation and review of laboratory resultsAbnormalNOUT HealthcareLYMPHOCYTES ABSOLUTE AUTO1.1 LowNOCedar County Memorial HospitalLymphocytes/100 WBC (Bld)14.4 %Low20.5 - 60.0 %[facility] MCH (RBC) [Entitic mass]23.8 pgLow26.7 - 34.0 pgNOCedar County Memorial HospitalMCHC (RBC) [Mass/Vol]32.4 g/dL29.9 - 35.2 g/dLFitzgibbon HospitalMCV (RBC) [Entitic vol]73.5 fL Low81.0 - 99.0 fLFitzgibbon HospitalMONOCYTES ABSOLUTE AUTO0.5NOC[facility] Hospital Monocytes/100 WBC (Bld)7.1 %1.7 - 12.0 %[facility] HospitalNEUTROPHILS ABSOLUTE AUTO 5.5NOCedar County Memorial HospitalNeutrophils/100 WBC (Bld)75.4 %High43.0 - 75.0 %[facility] HospitalPlatelet mean volume (Bld) [Entitic vol]11.1 fL9.5 - 13.5 fLNOCedar County Memorial HospitalTBH EO #0.2NOMS HealthcareTBH [id number] [facility] HospitalTB RBC4.37NOMS [facility] HospitalTB WBC7.3NOUT HealthcareCLINISYNCNOMS HealthcareUS OB TRANSVAGINALon 07-47-1293XZ OB TRANSVAGINALEXAM: US OB TRANSVAGINAL HISTORY: Dating. COMPARISON: None [...] II, MD, PHD at 11-Mar-2025 10:13:58 AM [facility] TeleradiologyNormalNot AvailableComment on above:Order Comment: US OB TRANSVAGINAL No LMP recorded.ALL CBC WITH AUTO DIFFon 80-17-0265EDKQOMGRI ABSOLUTE AUTO0.0 NOMS HealthcareBasophils/100 WBC (Bld)0.7 %0.2 - 2.0 %[facility] Healthcare Eosinophils/100 WBC (Bld)2.3 %0.9 - 7.0 %NOMS HealthcareErythrocyte distribution width (RBC) [Ratio]15.6 %High11.0 - 15.0 %NOMS HealthcareHematocrit (Bld) [Volume fraction]34.8 %Low36.0 - 48.0 %NOMS HealthcareHemoglobin (Bld) [Mass/Vol]10.9 g/dLLow12.0 - 16.0 g/dLNOUT HealthcareIMMATURE GRANULOCYTES ABS AUTO0.01NOMS HealthcareImmature granulocytes/100 WBC (Bld)0.2 %0.0 - 0.5 %NOMS HealthcareInterpretation and review of laboratory resultsAbnormalNOUT Healthcare LYMPHOCYTES ABSOLUTE AUTO1.4NOMS HealthcareLymphocytes/100 WBC (Bld)23.6 %20.5 - 60.0 %[facility]OMS [facility] HospitalMCH (RBC) [Entitic mass]23.2 pgLow26.7 - 34.0 pgNOCedar County Memorial HospitalMCHC (RBC) [Mass/Vol]31.3 g/dL29.9 - 35.2 g/dLNOCedar County Memorial HospitalMCV (RBC) [Entitic vol]74.0 fLLow81.0 - 99.0 fLFitzgibbon HospitalMONOCYTES ABSOLUTE AUTO0.5 [facility] HospitalMonocytes/100 WBC (Bld)7.8 %1.7 - 12.0 %[facility] NEUTROPHILS ABSOLUTE AUTO4.0F[facility] HospitalNeutrophils/100 WBC (Bld)65.4 %43.0 - 75.0 %[facility] HospitalPlatelet mean volume (Bld) [Entitic vol]10.3 fL9.5 - 13.5 fLCoxHealth EO #0[address] [facility] [id number] County Memorial Hospital RBC4.70 [facility] WBC6.1NNorthwest Medical CenterCLINISYNCNNorthwest Medical CenterUS PELVIS AND TRANSVAGon [id number] PELVIS AND TRANSVAGEXAMINATION: US PELVIS AND TRANSVAG HISTORY: Cyst of [...] Electronically authenticated by: KIAN MONREAL Date: 2022-01-02 14:[address] [place] [address] PELVIS AND TRANSVAGon [id number] PELVIS AND TRANSVAG EXAMINATION: US PELVIS AND [...] Electronically authenticated by: MELVIN ALONSO Date: 2021-10-12 15:53NormKet[facility] AUTO DIFFon [id number] #0.0 103/ulNormal0.0-0.1The [facility] HospitalComment on above:Performed By: #### CBC #### [facility] [address] [place] [address] Cain KarenBasophils/100 WBC (Bld)0.3 %Normal0.2-2.0The [facility] Comment on above:Performed By: #### CBC #### [facility] [address] [place] [address] Cain KarenEO #0.0 103/ulNormal0.0-0.7The [facility] HospitalComment on above: Performed By: #### CBC #### [facility] [address] [place] [address] Cain KarenEosinophils/100 WBC (Bld)0.3 %Critically low0.9-7.0The [facility] HospitalComment on above:Performed By: #### CBC #### [facility] [address] [place] [address] Cain KarenErythrocyte distribution width (RBC) [Ratio]14.3 %Mgrfvj69.0-15.0The [facility] HospitalComment on above:Performed By: #### CBC #### [facility] [address] [place] [address] Cain KarenHematocrit (Bld) [Volume fraction]34.1 %Critically low36.0-48.0The [facility] HospitalComment on above:Performed By: #### CBC #### [facility] [address] [place] [address] Cain KarenHemoglobin (Bld) [Mass/Vol]11.1 g/dLCritically low12.0-16.0The [facility] HospitalComment on above:Performed By: #### CBC #### [facility] [address] [place] [address] Cain KarenIG #0.02 10e3/ulNormal0.00-0.03The [facility] HospitalComment on above:Performed By: #### CBC #### [facility] [address] [place] [address] Cain KarenIG %0.2 %Normal0.0-0.5The [facility] HospitalComment on above: Performed By: #### CBC #### [facility] [address] [place] [address] Cain KarenLYMPH #0.9 103/ulCritically low1.2-3.8The [facility] HospitalComment on above:Performed By: #### CBC #### [facility] [address] [place] [address] Cain KarenLymphocytes/100 WBC (Bld)9.3 %Critically low20.5-60.0The [facility] HospitalComment on above:Performed By: #### CBC #### [facility] [address] [place] [address] Cain KarenMANUAL DIFF REQNONormalThe [facility] HospitalComment on above: Performed By: #### CBC #### [facility] [address] [place] [address] Cain KarenMCH (RBC) [Entitic mass]25.6 pgCritically low26.7-34.0The [facility] HospitalComment on above:Performed By: #### CBC #### [facility] [address] [place] [address] Cain KarenMCHC (RBC) [Mass/Vol]32.6 g/yJReikhm99.9-35.2The [facility] Comment on above:Performed By: #### CBC #### [facility] [address] [place] [address] Cain KarenMCV (RBC) [Entitic vol]78.8 fLCritically low79.1-95.6The [facility] HospitalComment on above:Performed By: #### CBC #### [facility] [address] [place] [address] Cain KarenMONO #0.6 103/ulNormal0.3-0.8The [facility] HospitalComment on above: Performed By: #### CBC #### [facility] [address] [place] [address] Cain KarenMonocytes/100 WBC (Bld)6.3 %Normal1.7-12.0[facility] Comment on above:Performed By: #### CBC #### [facility] [address] [place] [address] Cain KarenNEUT #8.0 103/ulCritically high1.4-6.5The [facility] HospitalComment on above:Performed By: #### CBC #### [facility] [address] [place] [address] Cain KarenNeutrophils/100 WBC (Bld)83.6 %Critically high43.0-75.0[facility] HospitalComment on above:Performed By: #### CBC #### [facility] [address] [place] [address] Cain KarenPlatelet mean volume (Bld) [Entitic vol]11.0 fLNormal9.5-13.5The [facility] HospitalComment on above:Performed By: #### CBC #### [facility] [address] [place] [address] Cain AahubGKG781 103/okXiptau764-797Stz [facility] HospitalComment on above: Performed By: #### CBC #### [facility] [address] [place] [address] Cain KarenRBC4.33 106/ulNormal3.40-5.30The [facility] HospitalComment on above: Performed By: #### CBC #### [facility] [address] [place] [address] Cain OlsonenWBC9.6 103/ulNormal4.0-11.0The [facility] HospitalComment on above: Performed By: #### CBC #### [facility] [address] [place], [place] [address] Cain KarenCT ABD/PELV W CONon [id number] ABD/PELV W CONCLINICAL HISTORY: ABDOMINAL DISTENSION (GASEOUS). Abdominal pain with [...] Electronically authenticated by: HARSHA AGUILAR Date: 2021-05-05 14:12[facility] URINE PROFILEon 96-13-9321Hinlpgixx Ql (U)NegativeNormal NEGATIVEMartin Memorial HospitalComment on above:Performed By: #### ERUR, PREGU #### [facility] [address] [place] [address] Cain KarenClarity (U)CLEARNormalCLEARMartin Memorial HospitalComment on above: Performed By: #### ERUR, PREGU #### [facility] [address] [place] [address] Cain KarenColor (U)LT. YELLOWNormalYELLOWMartin Memorial HospitalComment on above:Performed By: #### ERUR, PREGU #### [facility] [address] [place] [address] Cain KarenERUAHDA micrscopic examination will be performed if indicated.Normal The [facility] HospitalComment on above:Performed By: #### ERUR, PREGU #### [facility] [address] [place] [address] Cain KarenGlucose Ql (U)NegativeNormalNEGATIVEMartin Memorial HospitalComment on above:Performed By: #### ERUR, PREGU #### [facility] [address] [place] [address] Cain KarenHemoglobin Ql (U)NegativeNormalNEGATIVEMartin Memorial HospitalComment on above:Performed By: #### ERUR, PREGU #### [facility] [address] [place] [address] Cain KarenKetones Ql (U)NegativeNormalNEGATIVEMartin Memorial HospitalComment on above:Performed By: #### ERUR, PREGU #### [facility] [address] [place] [address] Cain KarenLEUKOCYTESNegativeNormalNEGATIVEMartin Memorial HospitalCommunising memorial hospital on above:Performed By: #### ERUR, PREGU #### [facility] [address] [place] [address] Cain KarenNitrite Ql (U)NegativeNormalNEGATIVEMartin Memorial HospitalComment on above:Performed By: #### ERUR, PREGU #### [facility] [address] [place] [address] Cain KarenpH (U)6.5 [pH]Normal5-9The [facility] HospitalComment on above: Performed By: #### BE PREGU #### [facility] [address] [place] [address] Cain KarenSPEC GRAVITY1.221Kncrse0.005-<=1.025The [facility] HospitalComment on above:Performed By: #### BE, PREGU #### [facility] [address] [place] [address] Cain KarenUA PROTEINNegativeNormalNEGATIVE/ TRACEThe [facility] HospitalComment on above:Performed By: #### BE PREGU #### [facility] [address] [place] [address] Cain KarenUR MICRO INDNOT INDICATEDNormalThe [facility] HospitalComment on above:Performed By: #### BE PREGU #### [facility] [address] [place] [address] Cain KarenUrobilinogen Qn (U)0.2 {Dagoberto'U}/dLNormal0.2 - 1.0The [facility] HospitalComment on above:Performed By: #### BE, PREGU #### [facility] [address] [place] [address] Cain KarenLIPASEon 90-54-9969Sfqetf [Catalytic activity/Vol]53.0 U/LNormal 23.0-300.0The [facility] HospitalComment on above:Performed By: #### CMP, LIPA #### [facility] [address] [place] [address] Cain KarenPREGNANCY URon 07-89-5025KNMQSUCHU, QUALNegativeNormalNEGATIVEThe [facility] HospitalComment on above:Performed By: #### BE, PREGU #### [facility] [address] [place] [address] Cain KarenPROF 14(COMP METB)on 26-28-7302Wpgeydp [Mass/Vol]3.7 g/dLNormal 3.5-5.0[facility] HospitalComment on above:Performed By: #### CMP, LIPA #### [facility] [address] [place] [id number] Cain KarenAlbumin/Globulin [Mass ratio]1.2 {ratio}NormalMartin Memorial Hospital Comment on above:Performed By: #### CMP, LIPA #### [facility] [address] [place] [address] Cain KarenALP [Catalytic activity/Vol]86 U/URmohha40-573KsaMartin Memorial Hospital Comment on above:Performed By: #### CMP, LIPA #### [facility] [address] [place] [address] Cain KarenALT [Catalytic activity/Vol]22 U/LNormal9-52[facility] Comment on above:Performed By: #### CMP, LIPA #### [facility] [address] [place] [address] Cain KarenAnion gap [Moles/Vol]11.6 mmol/LNormalThe [facility] HospitalComment on above:Performed By: #### CMP, LIPA #### [facility] [address] [place] [address] Cain KarenAST [Catalytic activity/Vol]15 U/RQtsafp52-07DmvMartin Memorial Hospital Comment on above:Performed By: #### CMP, LIPA #### [facility] [address] [place] [address] Cain KarenBilirubin [Mass/Vol]0.5 mg/dLNormal0.2-1.3TSalem [facility] Comment on above:Performed By: #### CMP, LIPA #### [facility] [address] [place] [address] Cain KarenCalcium [Mass/Vol]9.2 mg/dLNormal8.4-10.2[facility] Comment on above:Performed By: #### CMP, LIPA #### [facility] [address] [place] [address] Cain KarenChloride [Moles/Vol]105 mmol/HRhfjjz70-859RwjMartin Memorial Hospital Comment on above:Performed By: #### CMP, LIPA #### [facility] [address] [place] [address] Cain KarenCO2 [Moles/Vol]25.4 mmol/MTumzyq83.0-30.0The [facility] Comment on above:Performed By: #### CMP, LIPA #### [facility] [address] [place] [address] Cain KarenCreatinine [Mass/Vol]0.72 mg/dLNormal0.52-1.04[facility] Comment on above:Performed By: #### CMP, LIPA #### [facility] [address] [place] [address] Cain KarenGlobulin (S) [Mass/Vol]3.2 g/dLNormalThCleveland Clinic Avon HospitalComment on above:Performed By: #### CMP, LIPA #### [facility] [address] [place] [address] Cain KarenGlucose [Mass/Vol]88 mg/kVEfajpo33-701SikMartin Memorial HospitalComment on above:Performed By: #### CMP, LIPA #### [facility] [address] [place] [address] Cain KarenPotassium [Moles/Vol]4.0 mmol/LNormal3.4-5.0[facility] Comment on above:Performed By: #### CMP, LIPA #### [facility] [address] [place] [address] Cain KarenProtein [Mass/Vol]6.9 g/dLNormal6.1-8.2[facility] Memorial HospitalComment on above:Performed By: #### CMP, LIPA #### [facility] [address] [place] [address] Cain KarenSodium [Moles/Vol]138 mmol/DJmiasy093-987TosMartin Memorial Hospital Comment on above:Performed By: #### CMP, LIPA #### [facility] [address] [place] [address] Cain KarenUrea nitrogen [Mass/Vol]8.0 mg/dLNormal6.4-19.3The [facility] Comment on above:Performed By: #### TEENA WATKINS #### [facility] [address] [place], [place] [address] Cain KarenUrea nitrogen/Creatinine [Mass ratio]11.1 mg/mgSelect Medical Specialty Hospital - Southeast [place]Comment on above:Performed By: #### TEENA WATKINS #### [facility] [address] [place], [place] [address] Cain KarenUS PELVIS TRANSVAGon 15-65-4578KM PELVIS TRANSVAGEXAM: US PELVIS TRANSVAG HISTORY: Cyst of ovary [...] Electronically authenticated by: JONI GUZMAN Date: 2021-05-05 15:27[facility] [place] Vital Signs Date TimeVital SignValuePerforming EiidwxxwrCwwbkeat53-10-3916 15:16-0400Body mass index (BMI) [Ratio]28.92 kg/m2Munira LALA Work Phone: [facility] HospitalKdxdkahakz59-80-1459 15:16-0400Body .43 kgMunira LALA Work Phone: [phone] [place] [address]-16-2025 15:16-0400Diastolic blood ytoyylbx78 mm[Hg]Munira LALA Work Phone: [phone] [place] [address]-16-2025 15:16-0400Systolic blood bvepqecu489 mm[Hg]Munira LALA Work Phone: [phone])[facility] [place], [place] [address]Hpmoomywvq07-12-7261 13:59-0400Body mass index (BMI) [Ratio]28.84 kg/a7UlzjnphjDarlene Olmstead SEED SERVICE ADVISOR Work Phone: [phone])[address] [place], [place] [address]23710-01-2025 13:59-0400Body irwgbc16.2 kg Darlenebonny Olmstead SEED SERVICE ADVISOR Work Phone: [phone])[address] [place], [place] [address]23710-01-2025 13:59-0400Diastolic blood upfhdtvd26 mm[Hg]Darlene Ishan SEED SERVICE ADVISOR Work Phone: [phone] [place], [place] [address]Wpnfefavxn19-72-5453 13:59-0400Systolic blood xhedbvye439 mm[Hg]Darlene Ishan SEED SERVICE ADVISOR Work Phone: [phone])[address] [place], [place] [address]23709-17-2025 15:28-0400Body mass index (BMI) [Ratio]28.69 kg/w3Bblyl Tulio DO Work Phone: [phone])[facility] [place], [place] [address]Vzveuewptg59-70-4176 15:28-0400Body xcbegv77.81 kgCorey Tulio DO Work Phone: [phone])[facility] [place], [place] [address]Bxaxwxtjqw53-50-5140 15:28-0400Diastolic blood zmjyhohb57 mm[Hg]Shania Tulio DO Work Phone: [phone])[address] [place], [place] 0423709-17-2025 15:28-0400Systolic blood qukubign298 mm[Hg]Shania Tulio DO Work Phone: [phone])[address] [place], [place] 0423708-20-2025 13:52-0400Body mass index (BMI) [Ratio]28.97 kg/l1Tdwlo Tulio DO Work Phone: [phone])[facility] [place], [place] [address]Ginsxwyrai63-51-8018 13:52-0400Body ibnokw49.57 kgCorey Tulio DO Work Phone: [facility] HospitalKeyjytxzzh43-53-5899 13:52-0400Diastolic blood vrraltpp96 mm[Hg]Shania Tulio DO Work Phone: [facility] HospitalQceezbzkge53-36-8991 13:52-0400Systolic blood oxpfwskc298 mm[Hg]Shania Tulio DO Work Phone: [facility] HospitalQpxblfrgav34-75-4347 15:54-0400Body mass index (BMI) [Ratio]28.24 kg/m2Amy Jose SPIKE Work Phone: [facility] HospitalMvxzkhzhao15-20-9041 15:54-0400Body mbmyny23.62 kgAmy Jsoe LALA Work Phone: [facility] HospitalWydvriuzvj19-19-7763 15:54-0400Diastolic blood iqfnvrie97 mm[Hg]Munira Jose LALA Work Phone: [facility] HospitalDhpqtjkioe20-09-0125 15:54-0400Systolic blood irunkwgq870 mm[Hg]Munira Damoney PA Work Phone: [facility] HospitalVrrahhfhjo56-31-6245 13:34-0400Body mass index (BMI) [Ratio]29.35 kg/i8Hsojx Tulio DO Work Phone: [facility] HospitalSnfxgrzfdk61-58-7094 13:34-0400Body fijbqp31.56 kgCorey Tulio DO Work Phone: [facility] HospitalUgpjwaxjrq35-52-4544 13:34-0400Diastolic blood bimjdtmj27 mm[Hg]Shania Tulio DO Work Phone: [facility] HospitalGdqwgwvckb28-31-6771 13:34-0400Systolic blood iryzhckr572 mm[Hg]Shania Tulio DO Work Phone: [facility] HospitalMnhnogakqd07-15-5498 11:07-0400Body nfvsly430.6 Leonor Hernandes SEED SERVICE ADVISOR Work Phone: [facility]OCedar [facility] HospitalZzjanzrgly23-31-8804 11:07-0400Body mass index (BMI) [Ratio]29.18 kg/d1KhdgvcJose Antonio Hernandes SEED SERVICE ADVISOR Work Phone: [facility] HospitalNwurzsyqai46-44-6518 11:07-0400Body kafuxt61.11 kgShgaye Hernandes SEED SERVICE ADVISOR Work Phone: [facility] HospitalFfmewbhpgx40-88-2373 11:07-0400Diastolic blood pqguiyjq52 mm[Hg]Jose Antonio Hernandes SEED SERVICE ADVISOR Work Phone: [facility] HospitalRaeefbeiwu71-20-7513 11:07-0400Heart rate79 /min Jose Antonio Hernandes SEED SERVICE ADVISOR Work Phone: [facility] HospitalJoferhmaom53-27-3244 11:07-0400Respiratory rate16 /minSfacundo Hernandes SEED SERVICE ADVISOR Work Phone: [facility] HospitalZxtnietgbs94-70-1818 11:07-2682BhF8% (BldA) [Mass fraction]98 %Jose Antonio Hernandes SEED SERVICE ADVISOR Work Phone: [facility] HospitalDlfanmgedl82-01-1818 11:07-0400Systolic blood mm[Hg]Jose Antonio Hernandes SEED SERVICE ADVISOR Work Phone: [phone] [place], [place] [address]Fmcpgakofs20-80-9927 13:36-0500Body mass index (BMI) [Ratio]32.58 kg/f4Mbuce Tulio DO Work Phone: [facility] HospitalLxmbhjymsk89-55-0645 13:36-0500Body ybmopa18.09 kgCorey Tulio DO Work Phone: [facility] HospitalUgextmskxz40-38-9855 13:36-0500Diastolic blood ybnuqqng29 mm[Hg]Shania Tulio DO Work Phone: [phone] [address]Sptxolcyqy33-18-2091 13:36-0500Systolic blood prwzojww522 mm[Hg]Shania Tulio DO Work Phone: no[facility] Encounters Encounter DateEncounter TypeCare ProviderFacilityStart: 08-11-2025 End: 93-28-9088Vuagtq outpatient visit 15 minutesAmy Jose LALA Work Phone: noUT [place] OBGYNComment on above:Third trimester ([facility]); 30 weeks gestation of ([facility])Start: 08-11-2025 End: 69-99-4112oxchkynjgkFMD RAMEYNot AvailableStart: 07-27-2025 End: 39-67-3345Bgrcjd Quinn Olmstead NP Work Phone: [facility] OBGYNStart: 07-27-2025 End: 76-79-8274Yzsdfa Quinn Olmstead SEED SERVICE ADVISOR Work Phone: [facility]BGYNStart: 07-27-2025 End: 48-77-8608qjkqhzfycxDHMQOKXL NICOLASASUNot AvailableStart: 07-27-2025 End: 04-00-7094Aircph outpatient visit 15 minutesDarlene Olmstead NP Work Phone: [facility] [place] OBGYNComment on above:Anemia, unspecified type (Primary Dx); 28 weeks gestation of ([facility]); Third trimester ([facility]); Elevated glucose tolerance testStart: 07-25-2025 End: 83-47-1406Amyztuhpy Result EncounterGeneric External Data ProviderNOMS External Department UnsolicitedStart: 07-25-2025 End: 60-01-8155Plequzgvq Result EncounterGeneric External Data ProviderNOMS External Department UnsolicitedStart: 07-13-2025 End: 69-77-9401Eqdfoq outpatient visit 15 minutesCorey Tulio DO Work Phone: [facility] [place] OBGYNComment on above:Cystitis (Primary Dx); 26 weeks gestation of ([facility]); Second trimester ([facility]); Gastroesophageal reflux in ([facility])Start: 07-13-2025 End: 58-37-6560gyzcdsrhfiQBJFT FAZIONot AvailableStart: 07-13-2025 End: 21-28-5426Kfwbej flowsheetCorey Tulio DO Work Phone: [facility] [place] [facility]BGYNStart: 07-13-2025 End: 55-14-3856Ivlfug flowsheetCorey Tulio DO Work Phone: [facility] [facility]BGYNStart: 06-15-2025 End: 89-79-8008Xjotlt flowsheetCorey Tulio DO Work Phone: [facility] [place] OBGYNStart: 06-15-2025 End: 78-16-3365Lqagoy flowsheetCorey Tulio DO Work Phone: [facility] [place] OBGYNStart: 06-15-2025 End: 40-52-8346Whitnz outpatient visit 15 minutesCorey Tulio DO Work Phone: [facility] [place] OBGYNComment on above:22 weeks gestation of ([facility]); Second trimester ([facility]); Diabetes mellitus screeningStart: 06-15-2025 End: 00-35-5831eqipqufpyyHULDV FAZIONot AvailableStart: 05-31-2025 End: 11-03-6543scoxbcawvrEXK Love AvailableStart: 05-18-2025 End: 84-17-8857Onzltw outpatient visit 15 minutesMunira LALA Work Phone: [facility] BCP OBComment on above:Screening, , for anatomic survey ([facility]); STD exposure; Vaginal discharge; Second trimester ([facility]); 18 weeks gestation of ([facility])Start: 05-18-2025 End: 97-08-9771fwffckwaxtIGD JOSENot AvailableStart: 05-18-2025 End: 45-44-8564Hjtoud Lela LALA Work Phone: [facility] BCP OBStart: 05-18-2025 End: 10-66-2671Bosznc Lela LALA Work Phone: [facility] BCP OBStart: 05-18-2025 End: 80-84-4291Xtrsmzcu Result EncounterMunira LLAA Work Phone: [facility] External Department UnsolicitedStart: 04-06-2025 End: 22-67-1506Aetttf flowsheetCorey Tulio DO Work Phone: [facility] BCP OBStart: 04-06-2025 End: 41-85-5245Bkgrmh flowsheetCorey Tulio DO Work Phone: [facility] BCP OBStart: 04-06-2025 End: 04-17-7450Goiqjx outpatient visit 15 minutesCorey Tulio DO Work Phone: [facility] BCP OBComment on above:First trimester ; 12 weeks gestation of ; Urinary tract infection without hematuria, site unspecified; Other iron deficiency anemiaStart: 04-06-2025 End: 40-14-8234blvxltftvsAPTHK FAZIONot AvailableStart: 04-05-2025 End: 41-87-2794Aymkvw Heide Hernandes SEED SERVICE ADVISOR Work Phone: [facility] CI FMStart: 04-05-2025 End: 14-66-7564Cofnfy Heide Hernandes SEED SERVICE ADVISOR Work Phone: [facility] CI FMStart: 04-05-2025 End: 98-09-4005Ofgwjq outpatient visit 25 minutesShgaye Hernandes SEED SERVICE ADVISOR Work Phone: [facility] CI FMComment on above:Jaw pain (Primary Dx); Major depressive disorder, single episode, 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) (CMS/HCC); Otalgia of both earsStart: 04-05-2025 End: 66-16-0586imrxnihzxkXTVKMJKrysten Mackey AvailableStart: 04-01-2025 End: 48-23-0540Hpwpsyrao Result EncounterGeneric External Data ProviderNOMS External Department UnsolicitedStart: 04-01-2025 End: 49-98-1563Mjownbxus Result EncounterGeneric External Data ProviderNOMS External Department UnsolicitedStart: 03-10-2025 End: 26-56-4488msibuotnadUXHDJW SHIVELYNot AvailableStart: 03-10-2025 End: 94-95-5049Bdrzan outpatient visit 5 minutesNoms Bcp Ob Tulio NurseNOMS BCP OBComment on above:GA: 9y0nFrwwa: 03-10-2025 End: 27-18-7591qtnqlrqzdkYLPTSL SHIVELYNot AvailableStart: 09-07-2024 End: 29-99-5716Jklmmd flowsheetCorey Tulio DO Work Phone: noms BCP OBStart: 09-07-2024 End: 04-61-3288Kyxudq flowsheetCorey Tulio DO Work Phone: noms BCP OBStart: 09-07-2024 End: 80-26-8139Novipu outpatient visit 15 minutesCorey Tulio DO Work Phone: noms [facility] OBComment on above:PCOS (polycystic ovarian syndrome); Hormone imbalance; Pelvic pain in female; Pain in female genitalia on intercourseStart: 09-07-2024 End: 06-31-9420ieffaqfgmuGRGGI FAZIONot AvailableStart: 06-15-2024 End: 64-72-1872Wjfzzarji Result EncounterGeneric External Data ProviderNOMS External Department UnsolicitedStart: 06-15-2024 End: 42-28-9112Tmmfbngjt Result EncounterGeneric External Data ProviderNOMS External Department UnsolicitedStart: 01-02-2022 End: 33-26-2143deiukhknviRG HEAVENLY KARIMANIKFacility:N8Xvqyw: 10-12-2021 End: 31-98-2780ybbdzfilmgYX HEAVENLY KARASIKFacility:S4Ugsgk: 05-05-2021 End: 99-86-8545ntiskfapgkJQ EDYTAEN ALDAFacility:H1 Procedures DateProcedureProcedure DetailPerforming ClinicianStart: 10-05-6444Nojjy dip stick/tablet rgnt non-auto w/o micrscpAmy Jose LALA Work Phone: Start: 33-92-6581Sablo dip stick/tablet rgnt non-auto w/o micrscpKrbonny Olmstead SEED SERVICE ADVISOR Work Phone: Start: 95-43-4592JDR CBC WITH AUTO DIFFCorey Tulio DO Work Phone: Start: 59-22-0504Lsnuu dip stick/tablet rgnt non-auto w/o micrscpCorey Tulio DO Work Phone: Start: 86-10-2268Kosfn dip stick/tablet rgnt non-auto w/o micrscpCorey Tulio DO Work Phone: Start: 99-95-7389GNNJQCVEY VAGINITIS (HTRX)Munira LALA Work Phone: Start: 65-29-4148Dyuzt dip stick/tablet rgnt non-auto w/o micrscpAmy Jose LALA Work Phone: Start: 36-25-8524Zgruj dip stick/tablet rgnt non-auto w/o micrscpCorey Tulio DO Work Phone: Start: 22-91-5083IAU CBC WITH AUTO DIFFCorey Tulio DO Work Phone: Start: 94-93-3846GCV CBC WITH AUTO DIFFCorey Tulio DO Work Phone: Plan of Treatment DateCare ActivityDetailAuthorStart: 08-25-2025 End: 80-51-5823Nphwnry encounter /30/2025 3:20 PM EDT Routine [facility] AGUSTIN [address] [place], [id number] Munira Garcia PA [address] [place] [address] SANTINO BACAGYNStart: 07-27-2025 End: 94-70-2934Krebpoaubkr of glucose 3 hours after glucose challenge for glucose tolerance testGlucose tolerance, 3 hours Lab Routine Elevated glucose tolerance test Expected: 07/27/2025 (Approximate), Expires: 07/27/2026[facility] Work Phone: comment on above:Expected: 07/27/2025 (Approximate), Expires: 07/27/2026Start: 07-27-2025 End: 03-68-6910Dulepys encounter opdhrntga97/01/2025 1:50 PM EDT Routine [facility] [address] [facility] [place], [id number] Darlene Olmstead, SEED SERVICE ADVISOR [address] [place] [phone] [facility] [place] OBGYNStart: 07-13-2025 End: 93-20-2082Seytzvi encounter procedureNOMS [place] OBGYNComment on above: ArrivedStart: 07-13-2025 End: 35-84-2028XB for pregnancyUS OB follow up transabdominal approach Imaging Routine Second trimester ([facility]) Expected: 07/13/2025, Expires: 11/12/2025[facility] Work Phone: comment on above:Expected: 07/13/2025, Expires: 11/12/2025Start: 37-04-0397Pixzkyozd vaccinationINTERMOUNTAIN HEALTHCARE HealthcareStart: 06-15-2025 End: 98-12-4826PRX panel - Blood by Automated countCBC Lab Routine Diabetes mellitus screening Expected: 06/15/2025 (Approximate), Expires: 06/15/2026[facility] Work Phone: comment on above:Expected: 06/15/2025 (Approximate), Expires: 06/15/2026Start: 06-15-2025 End: 41-13-2972Aqbkfcnkifv of glucose 1 hour after glucose challenge for glucose tolerance testGlucose tolerance, 1 hour Lab Routine Diabetes mellitus screening Expected: 06/15/2025 (Approximate), Expires: 06/15/2026[facility] HealthcareComment on above:Expected: 06/15/2025 (Approximate), Expires: 06/15/2026Start: 06-15-2025 End: 71-56-0727Eggfbvz encounter procedureNOMS BCP OBComment on above:Arrived Start: 05-31-2025 End: 83-14-0455Tzlofcpkheaz / ancillary services pukeqczzrn67/05/2025 8:30 AM EDT Ancillary Procedure [facility] [address] [place] [phone] NOM[facility] BCP OBStart: 05-18-2025 End: 23-75-8954Xgxsmds encounter hziaqomun34/23/2025 3:30 PM EDT Routine [facility] [address] [place] [phone] Munira Garcia PA [address] [place] [address] [place] [address] ArrivedNOMS BCP OBComment on above: ArrivedStart: 05-18-2025 End: 05-65-5656Lhcnx fetoprotein, maternalAlpha fetoprotein, maternal Lab Routine 18 weeks gestation of ([facility]) Expected: 05/18/2025 (Approximate), Expires: 06/18/2025[facility] HealthcareComment on above:Expected: 05/18/2025 (Approximate), Expires: 06/18/2025Start: 05-18-2025 End: 96-21-9902MY for pregnancyUS OB 14+ weeks anatomy scan Imaging Routine Screening, , for anatomic survey ([facility]) Expected: 05/18/2025, Expires: 08/18/2025[facility] HealthcareComment on above:Expected: 05/18/2025, Expires: 08/18/2025Start: 05-04-2025 End: 73-05-5866Nqrncrv encounter /09/2025 2:30 PM EDT Routine [facility] [address] [facility] [address] Munira Garcia PA [address] [place] [address] [place] [address] NOMS BCP OBStart: 04-06-2025 End: 43-71-7085Begsafr encounter procedureNOMS BCP OBComment on above:Arrived Start: 04-05-2025 End: 91-29-0608Tfevlur encounter procedureNOMS BCP OBComment on above:Arrived Start: 03-10-2025 End: 70-95-0830LCF/RhABO/Rh Lab Routine Missed menses , unspecified gestational age Expected: 03/10/2025 (Approximate), Expires: 03/10/2026[facility] HealthcareComment on above:Expected: 03/10/2025 (Approximate), Expires: 03/10/2026Start: 03-10-2025 End: 76-68-2148Ajsxi type and Indirect antibody screen panel - BloodType and screen Lab Routine Missed menses , unspecified gestational age Expected: 03/10/2025 (Approximate), Expires: 03/10/2026[facility] HealthcareComment on above:Expected: 03/10/2025 (Approximate), Expires: 03/10/2026Start: 03-10-2025 End: 58-16-4522Xxqht of abuse panel - Urine by Screen methodRapid drug screen, urine Lab Routine , unspecified gestational age Encounter for supervision of normal first in first trimester Expected: 03/10/2025 (Approximate), Expires: 03/10/2026[facility] HealthcareComment on above:Expected: 03/10/2025 (Approximate), Expires: 03/10/2026Start: 03-09-2025 End: 45-69-9236EE Pelvis transvaginalUS OB transvaginal Imaging Routine Missed menses Expected: 03/09/2025, Expires: 06/09/2025[facility] Work Phone: comment on above:Expected: 03/09/2025, Expires: 06/09/2025Start: 11-01-2024 End: 72-95-4356Lebmwzf encounter etxeecozf23/06/2025 1:20 PM EST Consult [facility] [address] [facility] [address] Shania Antunez, DO [address] [facility] [place] [address] NOMS RONI OBStart: 09-07-2024 End: 54-91-7772Wsoeinl encounter zmoefxwcl96/12/2024 8:40 AM EST Office Visit [facility] [address] [facility] [phone] Shania Antunez, DO [address] [place], [place] [id number] NOMS BCP OBStart: 06-15-5932Rhoxcrhxj vaccination Influenza Vaccine (#1)NOMS HealthcareBacteria identified in Urine by Culture Urine culture Microbiology Routine Missed menses Ordered: 03/10/2025[facility] HealthcareComment on above:Ordered: 03/10/2025acteria identified in Urine by CultureUrine culture Microbiology Routine Cystitis Ordered: 07/13/2025[facility] HealthcareComment on above:Ordered: 07/13/2025BC W Auto Differential panel - BloodCBC and differential Lab Routine Missed menses , unspecified gestational age Ordered: 03/10/2025[facility] HealthcareComment on above:Ordered: 03/10/2025HLAMYDIA TRACHOMATIS (GENITO/STI)CHLAMYDIA TRACHOMATIS (GENITO/STI) Lab Routine Vaginal discharge Ordered: 05/18/2025[facility] HealthcareComment on above:Ordered: 05/18/2025Hemoglobin A1c/Hemoglobin.total in BloodHemoglobin A1c Lab Routine Missed menses , unspecified gestational age Ordered: 03/10/2025[facility] HealthcareComment on above:Ordered: 03/10/2025Hepatitis B virus surface Ag [Presence] in Serum or Plasma by ImmunoassayHepatitis B surface antigen Lab Routine Missed menses , unspecified gestational age Ordered : 03/10/2025[facility] HealthcareComment on above:Ordered: 03/10/2025Hepatitis C virus Ab [Presence] in Serum or Plasma by ImmunoassayHepatitis C antibody Lab Routine Missed menses , unspecified gestational age Ordered: 03/10/2025[facility] HealthcareComment on above:Ordered: 03/10/2025HIV-1/HIV-2 antigen/antibody combination immunoassayHIV-1 and HIV-2 antibodies Lab Routine Missed menses , unspecified gestational age Ordered: 03/10/2025[facility] HealthcareComment on above:Ordered: 03/10/2025Neisseria gonorrhoeae DNA [Presence] in Unspecified specimen by STEVO with probe detectionNeisseria gonorrhea DNA probe, direct Lab Routine Vaginal discharge Ordered: 05/18/2025[facility] HealthcareComment on above: Ordered: 05/18/2025ProgesteroneProgesterone Lab Routine Hormone imbalance Ordered: 09/07/2024[facility] Work Phone: comment on above:Ordered: 4Reagin Ab [Presence] in Serum by RPRRPR Lab Routine Missed menses , unspecified gestational age Ordered: 03/10/2025[facility] HealthcareComment on above:Ordered: 03/10/2025Rubella antibody, IgGRubella antibody, IgG Lab Routine Missed menses , unspecified gestational age Ordered: 03/10/2025[facility]:Ordered: 03/10/2025SURESWAB(R) ADVANCED VAGINITIS PLUS, TMASURESWAB(R) ADVANCED VAGINITIS PLUS, TMA Pathology and Cytology Routine Vaginal discharge Ordered: 05/18/2025[facility] Work Phone: comment on above:Ordered: 05/18/2025US Pelvis transvaginalUS OB transvaginal Imaging Routine Missed menses 03/10/2025 2:28 PM [facility] Payers DatePayer CategoryPayerPolicy ID2023Medicaid [id number] 2023Medicaid (Managed Care) [id number] [id number] 2.16.840.1.184996.3.57[id number] 2.16.840.1.655023.3.57[id number] 2.16.840.1.772959.3.57[id number] 2.16.840.1.812316.3.57[id number] 2.16.840.1.591246.3.57[id number] 2.16.840.1.539273.3.57[id number] 2.16.840.1.753297.3.57[id number] 2.16.840.1.611899.3.57[id number] 2.16.840.1.849915.3.57[id number] 2.16.840.1.138932.3.57[id number] 2.16.840.1.952284.3.57[id number] 2.16.840.1.340531.3.57[id number] 2.16.840.1.907338.3.57[id number] 2.16.840.1.014270.3.57[id number] 2.16.840.1.873647.3.57[id number] Social History DateTypeDetailFacilityStart: 12-30-2023 End: 06-32-5446Qugifnb smoking status NHISNever smoked tobaccoN[facility] Start: 12-30-2023 End: 22-95-9626Veserqf of Social functionNOUT HealthcareStart: 12-30-2023 End: 93-44-8195Qacuele use panelNOUT HealthcareStart: 66-32-0287Tik assigned at birthNot on fileNOUT HealthcareStart: 89-69-4120IwlxivxouTXNZ HealthcareStart: 35-14-0520Towyezu use and exposureSmokeless tobacco non-userNOMS [facility] Start: 04-05-2025 End: 15-66-9038Ygubxltlh beverage intakeLifetime non-drinker (finding)[facility] HealthcareStart: 11-35-4128EnuLnsuuxFUXH HealthcareNEGATED: Highlighted row Start: NINFHistory of tobacco usePassive smokerNOUT Healthcare Functional Status VgbfShznsbvozySgradyGutujedy49-36-2026Pxiopuq Health Questionnaire 2 item (PHQ- 2) [Reported][facility] Clinical Notes 09-07-2024 to 08-11-2025 Note Date & QiblWbraBpwbzyfs82-17-0703 History of Present illness Narrative* SPIKE Guzman - 08/11/2025 3:00 PM EDT [...] Size of fetus inconsistent with dates, antepartum ([facility]) 08/10/2025 Resolved Ambulatory Problems Diagnosis Date Noted [...] Vitals: Estimated body mass index is 28.92 kg/m as calculated from the following: Height as of 04/05/25: 5' 4 . Weight as of this encounter: 168 lb 8 oz. BP: 110/62 Patient's last menstrual period was 01/07/2025. ASSESSMENT & PLAN ICD-10-CM 1. Third trimester ([facility]) Z34.93 POCT urinalysis dipstick manually resulted 2. 30 weeks gestation of ([facility]) Z3A.30 Return OB: Patient presents today for [...] surgical history on file. documented in this encounterFitzgibbon HospitalZvtdidyjwc00-01-3743 History of Present illness Narrative* Darlene Olmstead NP - 07/27/2025 1:50 PM EDT Reason for Appointment: Patient ID: Veronica Blas is a 19 y.o. female who [...] nursing note reviewed. Exam conducted with a registered nurses present. Vitals: Estimated body mass index is 28.84 kg/m as calculated from the following: Height as of 04/05/25: 5' 4 . Weight as of this encounter: 168 lb. BP: 112/70 Patient's last menstrual period was 01/07/2025. ASSESSMENT & PLAN ICD-10-CM 1. Anemia, unspecified type D64.9 iron polysaccharides (ProFe) 391.3 (180 Fe) MG capsule 2. 28 weeks gestation of ([facility]) Z3A.28 POCT urinalysis dipstick manually resulted 3. Third trimester ([facility]) Z34.93 4. Elevated glucose tolerance test R73.09 [...] of: Darlene Olmstead NP documented in this encounterFitzgibbon HospitalDckrmddvke85-67-7861 History of Present illness Narrative* Darlene Olmstead NP - 07/13/2025 3:20 PM [...] nursing note reviewed. Exam conducted with a registered nurses present. Vitals: Estimated body mass index is 28.69 kg/m as calculated from the following: Height as of 04/05/25: 5' 4 . Weight as of this encounter: 167 lb 1.9 oz. BP: 120/68 Patient's last menstrual period was 01/07/2025. ASSESSMENT & PLAN ICD-10-CM 1. Cystitis N30.90 nitrofurantoin, macrocrystal-monohydrate, (Macrobid) 100 MG capsule Urine culture 2. 26 weeks gestation of ([facility]) Z3A.26 POCT urinalysis dipstick manually resulted 3. Second trimester ([facility]) Z34.92 POCT urinalysis dipstick manually resulted US OB follow up transabdominal approach 4. Gastroesophageal reflux in ([facility]) O99.619 omeprazole (PriLOSEC) [address] capsule [...] by Darlene Olmstead NP on behalf of: Shania Antunez DO documented in this encounterFitzgibbon HospitalDzqjdlmysw49-65-7339 History of Present illness Narrative* SPIKE Guzman - 06/15/2025 1:50 PM EDT Reason for Appointment: Patient ID: Veronica Blas is a 19 y.o. female who presents for Routine Visit Patient presents today for Return OB appointment. MEDICATIONS Current Outpatient Medications Medication Instructions diphenhydrAMINE (BENADRYL) 50 mg, Nightly PRN MV-Min-Fe Fum-FA-DHA ( 1 PO) 1 tablet, [...] reviewed. Vitals: Estimated body mass index is 28.97 kg/m as calculated from the following: Height as of 04/05/25: 5' 4 . Weight as of this encounter: 168 lb 12.8 oz. BP: 120/70 Patient's last menstrual period was 01/07/2025. ASSESSMENT & PLAN ICD-10-CM 1. 22 weeks gestation of ([facility]) Z3A.22 POCT urinalysis dipstick manually resulted 2. Second trimester ([facility]) Z34.92 POCT urinalysis dipstick manually resulted 3. Diabetes mellitus screening Z13.1 CBC Glucose tolerance, 1 hour CBC Glucose tolerance, 1 hour Return OB: Patient presents today for a routine obstetrics appointment. Patient is currently 22w5d . Patient states she is doing well but has complaints of being tired due to current . Patient has verbalizes frequent movement. Orders Placed This Encounter Procedures CBC Glucose tolerance, 1 hour POCT urinalysis dipstick manually resulted Follow Up: Patient is to return to office in 4 week for routine OB appointment. Documented by SPIKE Guzman on behalf of: Shania Antunez DO documented in this encounterFitzgibbon HospitalEfatwfvqyl31-76-0632 History of Present illness Narrative* SPIKE Guzman - 05/18/2025 3:30 PM EDT Reason for Appointment: Patient ID: Veronica Blas is a 19 y.o. female who presents for No chief complaint on file. Patient presents today for Return OB appointment. MEDICATIONS No current outpatient medications ALLERGIES Allergies Allergen Reactions Penicillins Unknown PROBLEMS Active Ambulatory Problems Diagnosis Date Noted Current severe episode of major depressive disorder without psychotic features without prior episode ([facility]) 12/30/2023 Exercise-induced asthma ([facility]) 12/30/2023 Patellofemoral syndrome of right knee 12/30/2023 [...] No family history on file. SURGICAL HISTORY No past surgical history on file. REVIEW OF SYSTEMS Review of Systems: Review [...] reviewed. Vitals: Estimated body mass index is 29.35 kg/m as calculated from the following: Height as of 04/05/25: 5' 4 . Weight as of 04/06/25: 171 lb. BP: Patient's last menstrual period was 01/07/2025. ASSESSMENT & PLAN ICD-10-CM 1. Screening, , for anatomic survey ([facility]) Z36.89 OB 14+ weeks anatomy scan US OB 14+ weeks anatomy scan 2. STD exposure Z20.2 3. Vaginal discharge N89.8 SURESWAB(R) ADVANCED VAGINITIS PLUS, TMA CHLAMYDIA TRACHOMATIS (GENITO/STI) Neisseria gonorrhea DNA probe, direct 4. Second trimester ([facility]) Z34.92 5. 18 weeks gestation of ([facility]) Z3A.18 POCT urinalysis dipstick manually resulted Alpha fetoprotein, maternal Alpha fetoprotein, maternal Return OB: Patient presents today for a routine obstetrics appointment. Patient is currently 18w5d . Patient states she is doing well but has complaints of being tired due to current . Patient has verbalizes frequent movement. .crf Orders Placed This Encounter Procedures US OB 14+ weeks anatomy scan CHLAMYDIA TRACHOMATIS (GENITO/STI) Neisseria gonorrhea DNA probe, direct Alpha fetoprotein, maternal POCT urinalysis dipstick manually resulted Follow Up: Patient is to return to office in 4 week for routine OB appointment. Documented by SPIKE Guzman on behalf of: SPIKE Guzman documented in this encounterFitzgibbon HospitalUynzpppzsz40-19-4353 History of Present illness Narrative* Shania Antunez, - 04/06/2025 1:20 PM EDT Reason for Appointment: Patient ID: Veronica Blas is a 19 y.o. female who presents for Routine Visit Patient presents today for Return OB appointment. 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 Exam conducted with a registered nurses present. Vitals: Estimated body mass index is 29.35 kg/m as calculated from the following: Height as of 04/05/25: 5' 4 . Weight as of this encounter: 171 lb. BP: 110/64 Patient's last menstrual period was 01/07/2025. ASSESSMENT & PLAN ICD-10-CM 1. First trimester Z34.91 POCT urinalysis dipstick manually resulted 2. 12 weeks gestation of Z3A.12 New OB: Patient presents today for 1st time obstetrics appointment with provider. Patient is currently 12w5d . Patients history has been reviewed in great detail including any potential risks. Patient stated she currently has no complaints. Expectations throughout regarding labs, ultrasounds, and appointments have been discussed with the patient in detail. It was reiterated that the patient is to drink 6-8 glasses of water a day, eat 6 small meals a day, do not consume raw or undercooked meat, and stay away from [facility]. Patient has been consulted regarding any further do's and don'tsof . Patient voiced understanding and all questions and concerns were answered. Pt has lowhgb profe faxed to pharmacy. Pt has UTI- rx for macrobid faxed to pharmacy. Orders Placed This Encounter Procedures POCT urinalysis dipstick manually resulted Follow Up: Patient is to return in 4 weeks for routine OB appointment. Documented by Adela Zamarripa LPN on behalf of: Shania Antunez DO documented in this encounterFitzgibbon HospitalBcsemypnnu27-96-4760 History of Present illness Narrative* Jose Antonio Hernandes NP - 04/05/2025 11:00 AM EDT Images from the original note were not included. Subjective Patient ID: Veronica Blas is a 19 y.o. female who presents for jaw/ ear pain Veronica presents today for left sided ear/ jaw that has been going on for over a week. The pain started with both ears hurting but now it's mostly on the left side. Patient is 12 weeks . Earache There is pain in both ears. This is a new problem. The current episode started 1 to 4 weeks ago. The problem occurs constantly. The problem has been gradually worsening. There has been no fever. The pain is at a severity of 4/10. The pain is moderate. Associated symptoms include rhinorrhea. She hastried acetaminophen for the symptoms. The treatment provided no relief. Current Outpatient Medications on File Prior to Visit Medication Sig Dispense Refill albuterol HFA (ProAir HFA) 90 mcg/act inhaler Inhale 2 puffs every 4 (four) hours if needed for wheezing or shortness of breath fexofenadine ([facility] Allergy Relief) 180 MG tablet Take 180 mg by mouth Daily magnesium oxide (Mag-Ox) 400 MG tablet Take 1 tablet (400 mg) by mouth Daily 30 tablet 11 ondansetron ODT (Zofran-ODT) 4 MG disintegrating tablet Take 1 tablet (4 mg) by mouth every 6 (six)hours if needed for nausea or vomiting 30 tablet 2 No current facility-administered medications on file prior to visit. I have reviewed and reconciled the history and medication list with the patient today. Allergies Allergen Reactions Penicillins Unknown Social History Tobacco Use Smoking status: Never Passive exposure: Never Smokeless tobacco: Never Vaping Use Vaping status: Never Used Substance Use Topics Alcohol use: Never Drug use: Never No family history on file. Past Medical History: Diagnosis Date Left ovarian [...] resolution of previously identified left ovarian cyst History reviewed. No pertinent surgical history. Visit Vitals LMP 01/07/2025 OB Status Smoking Status Never Review of Systems HENT: Positive for ear pain and rhinorrhea. Objective Physical Exam Vitals reviewed. Constitutional: Appearance: Normal appearance. HENT: Head: Atraumatic. Right Ear: A middle ear effusion is present. There is impacted cerumen. Left Ear: A middle ear effusion is present. Mouth/Throat: Mouth: Mucous membranes are moist. Pharynx: Oropharynx is clear. Comments: Bilateral jaw pain, reports that she had some molars coming through. Unable to examine asshe can't open her mouth wide enough to view. Eyes: Conjunctiva/sclera: Conjunctivae normal. Cardiovascular: Rate and Rhythm: Normal rate and regular rhythm. Pulmonary: Effort: Pulmonary effort is normal. Breath sounds: Normal breath sounds. Skin: General: Skin is warm and dry. Neurological: General: No focal deficit present. Mental Status: She is alert and oriented to person, place, and time. Psychiatric: Mood and Affect: Mood normal. Behavior: Behavior normal. Thought Content: Thought content normal. Judgment: Judgment normal. Assessment/Plan Diagnoses and all orders for this visit: Jaw pain No abscesses or open areas noted. Follow up with dentist for further treatment of jaw pain. Major depressive disorder, single episode, 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) (CMS/HCC) Pt is at this time. She is not exhibiting any signs of depression at this time. Otalgia of both ears Continue with your allergy medication. You reported that the POLY OPERATOR said you could take zyrtec for your allergies. Continue on this medication. The medication should help with the fluid in the inner ear. No follow-ups on file. documented in this encounterFitzgibbon [id number] History of Present illness Narrative* Heather Savage, SECURITIES DEALER - 03/10/2025 1:30 PM EDT Reason for Appointment: Patient ID: Veronica Ray Blas is a 19 y.o. female who presents for Amenorrhea Patient presents today for a Nurse OB Intake appointment. Patient is 8w6d with a Estimated Date of Delivery: 10/14/25 OB History Para Term AB Living 1 SAB IAB Ectopic Multiple Live Births # Outcome Date GA Lbr Carter/2nd Weight Sex Type Anes PTL Lv 1 Current Current Medications: has a current medication list which includes the following prescription(s): albuterol hfa, fexofenadine, magnesium oxide, nitrofurantoin (macrocrystal- monohydrate), and ondansetron odt. 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 Social History Tobacco Use Smoking status: Never Smokeless tobacco: Not on file Substance Use Topics Alcohol use: Not on file Drug use: Not on file No past surgical history on file. Allergies Allergen Reactions Penicillins Unknown Vitals: Estimated body mass index is 32.58 kg/m as calculated from the following: Height as of 06/07/24: 5' 4 . Weight as of 09/07/24: 189 lb 12.8 oz. BP: Patient's last menstrual period was 01/07/2025. Assessment/Plan Diagnoses and all orders for this visit: Missed menses - US OB transvaginal; Future - Type and screen; Future - ABO/Rh; Future - CBC and differential - Hemoglobin A1c - RPR - Rubella antibody, IgG - Hepatitis B surface antigen - Hepatitis C antibody - HIV-1 and HIV-2 antibodies - Urine culture - POCT , urine manually resulted - POCT urinalysis dipstick manually resulted , unspecified gestational age - Type and screen; Future - ABO/Rh; Future - CBC and differential - Hemoglobin A1c - RPR - Rubella antibody, IgG - Hepatitis B surface antigen - Hepatitis C antibody - HIV-1 and HIV-2 antibodies - Rapid drug screen, urine; Future Encounter for supervision of normal first in first trimester - Rapid drug screen, urine; Future Nausea and vomiting in - ondansetron ODT (Zofran-ODT) 4 MG disintegrating tablet; Take 1 tablet (4 mg) by mouth every 6 (six) hours if needed for nausea or vomiting headache in first trimester - magnesium oxide (Mag-Ox) 400 MG tablet; Take 1 tablet (400 mg) by mouth Daily UTI symptoms - nitrofurantoin, macrocrystal-monohydrate, (Macrobid) 100 MG capsule; Take 1 capsule (100 mg) by mouth in the morning and 1 capsule (100 mg) before bedtime. Do all this for 7 days. Nurse Note: OB Intake: Patient presents today for first OB visit. Patients history has been reviewed in great detail including any potential risks. Patient signed consent forms and patient desires testing in both trimesters. Patient currently has no complaints and has been advised to drink 6-8 glasses of water a day, eatno raw or undercooked meat, and stay away from [facility]. Patient has also been advised to not change litter boxes and eat 6 small meals a day. Patient has been consulted regarding the do's and don'ts ofpregnancy. Patient was given labs and all questions and concerns were answered. Follow Up: Patient is to return in 4 weeks for routine OB appointment. Follow Up: Patient is to have labs drawn at directed and return to office for initial OB appointment with provider. Patient may call office as needed with any concerns or questions. Nurse Visit Completed by: Heather Savage LPN documented in this encounterNOMS [id number] History of Present illness Narrative* Adela Zamarripa, SECURITIES DEALER - 09/07/2024 1:20 PM EST Reason for Appointment: Patient ID: Veronica Blas is a 19 y.o. female who presents for No chief complaint on file. Patient presents today for Fertility Follow Up appointment. MEDICATIONS Current Outpatient Medications Medication Instructions albuterol HFA (ProAir HFA) 90 mcg/act inhaler 2 puffs, Inhalation, Every 4 hours PRN fexofenadine ([employer] ALLERGY RELIEF) 180 mg, Oral, Daily FLUoxetine (PROzac) 10 MG capsule 1 capsule, Oral, Every 24 hours fluticasone (Flonase) 50 MCG/ACT nasal spray 1 spray, Each Nostril, Every 24 hours metFORMIN XR (GLUCOPHAGE-XR) 500 mg, Oral, Daily with evening meal, Do not crush, chew, or split. 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 SURGICAL HISTORY No past surgical history on file. REVIEW OF SYSTEMS Review of Systems: Review [...] nursing note reviewed. Exam conducted with a registered nurses present. Vitals: Estimated body mass index is 32.58 kg/m as calculated from the following: Height as of 06/07/24: 5' 4 . Weight as of this encounter: 189 lb 12.8 oz. BP: 106/70 Patient's last menstrual period was 09/04/2024 (exact date). ASSESSMENT & PLAN ICD-10-CM 1. PCOS (polycystic ovarian syndrome) E28.2 2. Hormone imbalance E34.9 Progesterone 3. Pelvic pain in female R10.2 4. Pain in female genitalia on intercourse N94.10 Pt presents to discuss fertility. Reviewed labs and ultrasound with pt. Discussed adding Femara will hold off until December- pt to have telehealth appt in November to discuss adding Femara. Pt having painful intercourse and painful periods- discussed dx lap for diagnosis- pt to be scheduled for Dx lap with adina Knight, Documented by Adela Zamarripa LPN on behalf of: Shania Antunez DO documented in this encounterNOMS HealthcareEvaluation note* Diagnosis PCOS (polycystic ovarian syndrome) Polycystic ovaries Hormone imbalance Pelvic pain in female Unspecified symptom associated with female genital organs Pain in female genitalia on intercourse Dyspareunia documented in this encounter [facility]* Diagnosis Missed menses , unspecified gestational age Encounter for supervision of normal first in first trimester Nausea and vomiting in Unspecified vomiting of , unspecified as to episode of care headache in first trimester UTI symptoms documented in this encounter [facility]* Diagnosis Jaw pain- Primary Major depressive disorder, single episode, 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) ([facility]) Otalgia of both ears documented in this encounter [facility]* Diagnosis First trimester state, incidental 12 weeks gestation of Urinary tract infection without hematuria, site unspecified Other iron deficiency anemia documented in this encounter [facility]* Diagnosis Screening, , for anatomic survey ([facility]) Encounter for anatomic survey STD exposure Vaginal discharge Leukorrhea, not specified as infective Second trimester ([facility]) state, incidental 18 weeks gestation of ([facility]) documented in this encounter [facility]* Diagnosis 22 weeks gestation of ([facility]) Second trimester ([facility]) state, incidental Diabetes mellitus screening Screening for diabetes mellitus documented in this encounter [facility]* Diagnosis Cystitis- Primary Unspecified cystitis 26 weeks gestation of ([facility]) Second trimester ([facility]) state, incidental Gastroesophageal reflux in ([facility]) documented in this encounter [facility]* Diagnosis Anemia, unspecified type- Primary 28 weeks gestation of ([facility]) Third trimester ([facility]) state, incidental Elevated glucose tolerance test Impaired glucose tolerance test documented in this encounter [facility]* Diagnosis Third trimester ([facility]) state, incidental 30 weeks gestation of ([facility]) documented in this encounter [facility] Healthcare Summary Purpose Family History No Family History Records FoundNo Family History Records Found Advance Directives No Advanced Directives Records FoundNo Advanced Directives Records Found Additional Source Comments INFORMATION SOURCE (unrecogn ized section and content) DATE CREATED AUTHOR 01/04/2022 [facility] DATE CREATED AUTHOR AUTHOR'S ORGANIZ ATION 08/13/2025 [facility] EPIC Care Teams (unrecognized sec tion and content) Team MemberRelationshipSpecialtyStart DateEnd Date Eliana Flanagan MD [address] [place] [address] PCP - [facility]03/04/23 Jose Antonio Hernandes, SEED SERVICE ADVISOR [address] [place] [address] [facility]07/27/24Team MemberRelationshipSpecialtyStart DateEnd Date Eliana Flanagan MD [address] [place] [address] PCP - [facility]03/04/23 Jose Antonio Hernandes, SEED SERVICE ADVISOR [address] [place] [address] [facility]07/27/24Team MemberRelationshipSpecialtyStart DateEnd Date Eliana Flanagan MD [address] [place] [address] [facility]03/04/23Team MemberRelationshipSpecialtyStart DateEnd Date Eliana Flanagan MD [address] [place] [address] PCP - [facility]03/04/23 Jose Antonio Hernandes, SEED SERVICE ADVISOR [address] [place] [address] [facility]07/27/24Team MemberRelationshipSpecialtyStart DateEnd Date Eliana Flanagan MD [address] [place] [address] PCP - [facility]03/04/23 Jose Antonio Hernandes, MARION [address] [place] [address] PCP [facility]07/27/24Team MemberRelationshipSpecialtyStart DateEnd Date Eliana Flanagan MD [address] [place] [address] PCP [facility]03/04/23 Jose Antonio Hernandes, SEED SERVICE ADVISOR [address] [place] [address] [facility]07/27/24Team MemberRelationshipSpecialtyStart DateEnd Date Eliana Flanagan MD [address] [place] [address] PCP [facility]03/04/23 Jose Antonio Hernandes, SEED SERVICE ADVISOR [address] [place] [address] [facility]07/27/24Team MemberRelationshipSpecialtyStart DateEnd Date Eliana Flanagan MD [address] [place] [address] PCP [facility]03/04/23 Jose Antonio Hernandes, SEED SERVICE ADVISOR [address] [place] [address] [facility]07/27/24Team MemberRelationshipSpecialtyStart DateEnd Date Eliana Flanagan MD [address] [place] [address] PCP - GeneralFamily Medicine03/04/23 Jose Antonio Hernandes, MARION [address] [place] [address] PCP - [facility]07/27/24Team MemberRelationshipSpecialtyStart DateEnd Date Eliana Flanagan MD [address] [facility] [address] [place] [address] PCP - GeneralFamily Medicine03/04/23Team MemberRelationshipSpecialtyStart DateEnd Date Eliana Flanagan MD [address] [facility] [address] [place] [address] PCP - GeneralFamily Medicine03/04/23Team MemberRelationshipSpecialtyStart DateEnd Date Eliana Flanagan MD [address] [facility] [address] [place] [address] PCP - GeneralFamily Medicine03/04/23Team MemberRelationshipSpecialtyStart DateEnd Date Eliana Flanagan MD [address] [facility] [address] [place] [address] PCP - GeneralFamily Medicine03/04/23Team MemberRelationshipSpecialtyStart DateEnd Date Eliana Flanagan MD [address] [facility] [address] [place] [address] PCP - GeneralFamily Medicine03/04/23Team MemberRelationshipSpecialtyStart DateEnd Date Eliana Flanagan MD [address] [facility] [address] [place] [address] PCP - GeneralFamisu Medicine03/04/23 Reason for Visit (unrecogniz ed section and content) ReasonCommentsAmenorrheaReasonCommentsRoutine Visit FOR RECORDS PERTAINING TO PATIENTS WHO ARE [...] BE BASED ON THE PRIMARY CLINICAL RECORDS. [employer] provides no warranty or guarantee of the accuracy or completeness of information in this document.
--- OUTSIDE RECORDS SUMMARY | 2025-08-19 12:08 | XMS_ITS | Clinical Summary ---
Author Organization [facility] Healthcare Address [address] [place] [address] Care Team Providers Care Oncology Patient Navigator Name Role Phone Eliana Flanagan MD Primary Care Provider [phone] Allergies Active AllergyReactionsCriticalityNoted NhnvRfzirflsBxhwxqcjmjyRlnvrli88/12/2024 Medications MedicationSigDispense QuantityRefillsLast FilledStart DateEnd DateStatus MV-Min-Fe Fum-FA-DHA ( 1 PO) Take 1 tablet by mouth DailyActive diphenhydrAMINE (BENADryl) 50 MG tablet Take 50 mg by mouth as needed at bedtime for itchingActive omeprazole (PriLOSEC) [address] capsule Indications:Gastroesophageal Reflux Disease,HeartburnTake 1 capsule (20 mg) by mouth in the morning. Take before meals. Do not crush or chew. 30 capsule 5Active iron polysaccharides (ProFe) 391.3 (180 Fe) MG capsule Indications:Anemia, unspecified typeTake 1 capsule (391.3 mg) by mouth Daily 30 capsule 5Active nitrofurantoin, macrocrystal-monohydrate, (Macrobid) 100 MG capsule Indications:CystitisTake 1 capsule (100 mg) by mouth in the morning and 1 capsule (100 mg) before bedtime. Do all this for 7 days. 14 capsule 5007/20/2025Expired Active Problems ProblemNoted DateDiagnosed DateSize of fetus inconsistent with dates, antepartum ([facility])08/10/2025PCOS (polycystic ovarian syndrome)09/07/2024urrent severe episode of major depressive disorder without psychotic features without prior lcgfxwx5012/30/2023Exercise-induced uqiulf5312/30/2023atellofemoral syndrome of right knee12/30/2023Estimated Date of KhlrndzxApmrzqhjTcx24/19/2025Based on last menstrual period of 01/07/2025 Encounters DateTypeDepartmentCare EnvqBfvozchdcuz90/16/2025 3:00 [place] [address] Munira Yu PA Third trimester ([facility]); 30 weeks gestation of ([facility])08/11/2025 2:30 PM EDTAncillary [place] [address] Second trimester ([facility]); Cystitis; Size of fetus inconsistent with dates, antepartum ([facility])08/05/2025Patient Outreach [facility] [address] [place] [address] Munira Degroot LPN 08/04/2025bstract [facility] [address] [place] [address] Munira Degroot LPN 07/27/2025 1:50 PM EDTRoutine [facility] [place] [facility] [address] Darlene Olmstead NP Anemia, unspecified type (Primary Dx); 28 weeks gestation of ([facility]); Third trimester ([facility]); Elevated glucose tolerance test07/27/2025amboo [place] [address] Darlene Olmstead NP 07/26/2025Telephone [facility] [place] [facility] [place] [address] Shani Hinds MA 07/25/2025linisync Result Encounter [facility] External Department Unsolicited Provider, Generic External Data 07/13/2025 3:20 PM EDTRoutine [facility] [address] [place] [address] Alex Antunez, Cystitis (Primary Dx); 26 weeks gestation of ([facility]); Second trimester ([facility]); Gastroesophageal reflux in ([facility]); Size of fetus inconsistent with dates, antepartum ([facility])07/13/2025amb flowsheet [facility] [address] [place] [address] Alex Antunez, 06/15/2025 1:50 PM EDTRoutine [facility] [address] [place] [address] Alex Antunez, 22 weeks gestation of ([facility]); Second trimester ([facility]); Diabetes mellitus xculfrfei01/20/2025amb flowsheet [facility] [address] [place] [address] Alex Antunez, 06/06/2025bstract [facility] [address] [place] [address] Alex Antunez, 06/02/2025bstract [facility] [address] [place] [address] Alex Antunez, 05/31/2025 8:30 AM EDTAncillary Procedure [facility] [address] [place] [address] 05/20/2025Telephone [facility] [address] [address] Liliana Leahy MA from Last 3 Months Family History RelationNameStatusCommentsFatherAliveMotherAlive Social History Tobacco UseTypesPacks/DayYears UsedDateSmoking Tobacco: NeverPassive Smoke Exposure: NeverSmokeless Tobacco: Never Tobacco Cessation:Counseling Given: Yes Alcohol UseStandard Drinks/WeekCommentsNever0 (1 standard drink = 0.6 oz pure alcohol)PHQ-2AnswerDate RecordedPatient Health Questionnaire-2 Jxsaa429 Estimated Date of RnnrfgdjPoowxiwaAgw93/19/2025ased on last menstrual period of 01/07/2025Sex and Gender InformationValueDate RecordedSex Assigned at BirthNot on fileLegal NmlYjagdv44/15/2023 6:51 PM EDTGender IdentityNot on file Sexual OrientationNot on file Last Filed Vital Signs Vital SignReadingTime TakenCommentsBlood Tknavyam026/6208/11/2025 3:16 PM EDT Sgdkq804404/05/2025 11:07 AM EDTTemperature--Respiratory Zmwb1741 11:07 AM EDTOxygen Ezcavldcuf96%04/05/2025 11:07 AM EDTInhaled Oxygen Concentration-- Tamisb10.4 kg (168 lb 8 oz)08/11/2025 3:16 PM ICXMzojrk430.6 cm (5' 4 ) 04/05/2025 11:07 AM EDTBody Mass Index28.9204/05/2025 11:07 AM EDT Plan of Treatment DateTypeDepartmentCare Team (Latest Contact Info)Wdhnhuhjhdt96/30/2025 3:20 PM EDTRoutine [facility] [address] [address] Munira Yu PA [address] [place] [address] Health MaintenanceDue DateLast DoneCommentsInfluenza Vaccine (#1)06/27/2025 Procedures Procedure NamePriorityDate/TimeAssociated DiagnosisCommentsUS OB FOLLOW UP TRANSABDOMINAL LHUGJDOJEcgqlup08/17/2025 12:55 PM EDT Second trimester ([facility]) Cystitis Size of fetus inconsistent with dates, antepartum ([facility]) POCT URINALYSIS NWZHMHUKSgvyvsx93/16/2025 3:21 PM EDT Third trimester ([facility]) POCT URINALYSIS XXQKZNEMCvkcgdt16/01/2025 2:06 PM EDT 28 weeks gestation of ([facility]) GLUCOSE 1 UHAZYtzthvh88/29/2025 1:17 PM EDT ALL CBC WITH AUTO XPHZRwewmbg54/29/2025 1:17 PM EDT URINARY TRACT INFECTION (HTRX)Ujofikl4007/13/2025 4:23 PM EDT POCT URINALYSIS LLDGUBXTWwkumgp30/17/2025 3:34 PM EDT 26 weeks gestation of ([facility]) Second trimester ([facility]) POCT URINALYSIS TOJASQRFIoegjqo32/20/2025 1:59 PM EDT 22 weeks gestation of ([facility]) Second trimester ([facility]) US OB 14+ WEEKS ANATOMY JNLXYmyfckn28/05/2025 9:06 AM EDT Screening, , for anatomic survey ([facility]) from Last 3 Months Results * US OB follow up transabdominal [...] Camp MD Authorizing ProviderResult TypeResult StatusDarlene Olmstead NPIMTariq OB US PROCEDURESFinal Result * (ABNORMAL) POCT urinalysis dipstick manually resulted (08/11/2025 3:21 PM EDT) Only the most recent of4 resultswithin the time period is included. ComponentValueRef RangeTest MethodAnalysis TimePerformed AtPathologist Signature Color, UAYellowClarity, UAClearGlucose, UANegativeNegative - 2000(110) ++++ mg/dLBilirubin, UANegativeNegative - 4(70) +++ mg/dLKetones, UANegativeNegative - 160(16) ++++ mg/dLSpec Grav, UA1.0151 - 1.03Blood, UANegativeNegative - 50 Tarun/mcLpH, UA6.05 - 9Protein, UANegativeNegative - 2000(20) ++++ mg/dL Urobilinogen, UA0.20.2 - 12 mg/dLLeukocytes, UANegativeNegative - 500+++ Joelle/mcL Nitrite, UANegativeNegative - PositiveSpecimen (Source)Anatomical Location / LateralityCollection Method / VolumeCollection TimeReceived OnzdEqrkc84/16/2025 3:21 PM EDT Narrative Authorizing ProviderResult TypeResult StatusMunira Yu [facility] TEST ENTER/EDIT ORDERABLESFinal Result * (ABNORMAL) GLUCOSE 1 HOUR (07/25/2025 1:17 PM EDT)ComponentValueRef RangeTest MethodAnalysis TimePerformed AtPathologist SignatureGLUCOSE 1 ZQEC001(H)<130 mg/dLTBHSpecimen (Source)Anatomical Location / LateralityCollection Method / VolumeCollection TimeReceived Time07/25/2025 1:17 PM EDT07/25/2025 1:19 PM EDT Narrative SYDNEY - 07/25/2025 1:47 PM EDT Authorizing ProviderResult TypeResult StatusCorey Tulio DOLAB BLOOD ORDERABLES Final ResultPerforming OrganizationAddressCity/State/ZIP CodePhone Number [facility] * (ABNORMAL) ALL CBC WITH AUTO DIFF (07/25/2025 1:17 PM EDT)ComponentValueRef RangeTest MethodAnalysis TimePerformed AtPathologist SignatureTBH WBC7.14.0 - 11.0 10 3/uLTBHTBH RBC3.97(L)4.20 - 5.40 10 6/uLTBHTBH HGB10.4(L)12.0 - 16.0 g/dLTBHTBH HCT32.0(L)36.0 - 48.0 %TBHTBH MCV80.6(L)81.0 - 99.0 fLTBHTBH MCH 26.2(L)26.7 - 34.0 pgTBHTBH MCHC32.529.9 - 35.2 g/dLTBHTBH RDW14.311.0 - 15.0 %TBHTBH OCN359277 - 450 10 3/uLTBHTBH MPV10.99.5 - 13.5 fLTBHNEUTROPHILS PERCENT AUTO80.0(H)43.0 - 75.0 %TBHLYMPHOCYTES PERCENT AUTO14.0(L)20.5 - 60.0 %TBHMONOCYTES PERCENT AUTO4.01.7 - 12.0 %TBHTBH EO %1.30.9 - 7.0 %TBHBASOPHILS PERCENT AUTO0.30.2 - 2.0 %TBHIMMATURE GRANULOCYTES PCT AUTO0.40.0 - 0.5 %TBH NEUTROPHILS ABSOLUTE AUTO5.71.4 - 6.5 10 3/uLTBHLYMPHOCYTES ABSOLUTE AUTO1.0 (L)1.2 - 3.8 10 3/uLTBHMONOCYTES ABSOLUTE AUTO0.30.3 - 0.8 10 3/uLTBHTBH EO # 0.10.0 - 0.7 10 3/uLTBHBASOPHILS ABSOLUTE AUTO0.00.0 - 0.1 10 3/uLTBHIMMATURE GRANULOCYTES ABS AUTO0.030.00 - 0.03 10 3/uLTBHSpecimen (Source)Anatomical Location / LateralityCollection Method / VolumeCollection TimeReceived Time 07/25/2025 1:17 PM EDT07/25/2025 1:19 PM EDT Narrative CLINISYNC - 07/25/2025 1:45 PM EDT Authorizing ProviderResult TypeResult StatusCorey Tulio DOCLINISYNCFinal Result Performing OrganizationAddressCity/State/ZIP CodePhone Number SYDNEY TB * URINARY TRACT INFECTION (HTRX) (07/13/2025 4:23 PM EDT)ComponentValueRef Range Test MethodAnalysis TimePerformed AtPathologist SignatureACINETOBACTER PTOSLTAP526.961 - 24.689 ppm07/15/2025 7:29 AM EDTHealthTrackRx at [facility] ACINETOBACTER BAUMANIINot Xokysrfl58.961 - 24.689 ppm07/15/2025 7:29 AM EDT [facility] LabPortCITROBACTER XXRVQGOJ598.000 - 32.015 ppm07/15/2025 7:29 AM EDTHealthTrackRx at LabPortCITROBACTER FREUNDIINot Qodjvkem17.000 - 32.015 ppm07/15/2025 7:29 AM EDTHealthTrackRx at LabPortENTEROBACTER AEROGENES, TODVVAA413.000 - 32.290 ppm07/15/2025 7:29 AM EDTHealthTrackRx at LabPortENTEROBACTER AEROGENES, CLOACAENot Xhwnfbxt85.000 - 32.290 ppm 07/15/2025 7:29 AM EDTHealthTrackRx at LabPortENTEROCOCCUS FAECALIS, FAECIUM0 26.000 - 33.043 ppm07/15/2025 7:29 AM EDTHealthTrackRx at LabPortENTEROCOCCUS FAECALIS, FAECIUMNot Jlpyxpiq30.000 - 33.043 ppm07/15/2025 7:29 AM EDT [facility] at LabPortESCHERICHIA XRBR140.000 - 28.500 ppm07/15/2025 7:29 AM EDTHealthTrackRx at LabPortESCHERICHIA COLINot Hzrkkiul50.000 - 28.500 ppm 07/15/2025 7:29 AM EDTHealthTrackRx at LabPortKLEBSIELLA PNEUMONIAE, OXYTOCA0 23.000 - 31.865 ppm07/15/2025 7:29 AM EDTHealthTrackRx at LabPortKLEBSIELLA PNEUMONIAE, OXYTOCANot Irpfxlzy63.000 - 31.865 ppm07/15/2025 7:29 AM EDT [facility] at LabPortMORGANELLA DYYTIZBQ349.961 - 24.689 ppm07/15/2025 7:29 AM EDTHealthTrackRx at LabPortMORGANELLA MORGANIINot Hebpoxwz93.961 - 24.689 ppm07/15/2025 7:29 AM EDTHealthTrackRx at LabPortPROTEUS MIRABILIS, VULGARIS0 23.000 - 28.500 ppm07/15/2025 7:29 AM EDTHealthTrackRx at LabPortPROTEUS MIRABILIS, VULGARISNot Gxcnrsik22.000 - 28.500 ppm07/15/2025 7:29 AM EDT [facility] at LabPortPSEUDOMONAS XMFPZOGOPT890.000 - 31.801 ppm07/15/2025 7:29 AM EDTHealthTrackRx at LabSt. Vincent Clay HospitalPSEUDOMONAS AERUGINOSANot Bwaxgqur19.000 - 31.801 ppm07/15/2025 7:29 AM EDTHealthTrackRx at LabSt. Vincent Clay HospitalSTAPHYLOCOCCUS AUREUS0 26.000 - 31.595 ppm07/15/2025 7:29 AM EDTHealthTrackRx at [facility] STAPHYLOCOCCUS AUREUSNot Qmbagwob50.000 - 31.595 ppm07/15/2025 7:29 AM EDT [facility] LabSt. Vincent Clay HospitalSTREPTOCOCCUS AGALACTIAE (GROUP B STREP)026.000 - 32.435 ppm07/15/2025 7:29 AM EDTHealthTrackRx at LabSt. Vincent Clay HospitalSTREPTOCOCCUS AGALACTIAE (GROUP B STREP)Not Ffjdccqw36.000 - 32.435 ppm07/15/2025 7:29 AM EDTHealthTrackRx at LabPortCANDIDA ALBICANS, PARAPSILOSIS, ERJSJZDIXD205.000 - 30.347 ppm07/15/2025 7:29 AM EDTHealthTrackRx at LabPortCANDIDA ALBICANS, PARAPSILOSIS, TROPICALISNot Obszwrpn66.000 - 30.347 ppm07/15/2025 7:29 AM EDT [facility] LabPortCANDIDA SDIIFVVO926.000 - 31.618 ppm07/15/2025 7:29 AM EDTHealthTrackRx at LabPortCANDIDA GLABRATANot Egviygoh83.000 - 31.618 ppm 07/15/2025 7:29 AM EDTHealthTrackRx at LabPortCANDIDA SDVIRM460.000 - 30.873 ppm07/15/2025 7:29 AM EDTHealthTrackRx at LabPortCANDIDA KRUSEINot Detected 23.000 - 30.873 ppm07/15/2025 7:29 AM EDTHealthTrackRx at LabPortSERRATIA TWYVVQCHWC790.000 - 31.581 ppm07/15/2025 7:29 AM EDTHealthTrackRx at [facility] SERRATIA MARCESCENSNot Nbkhsude30.000 - 31.581 ppm07/15/2025 7:29 AM EDT [facility] at LabPortSTREPTOCOCCUS PYOGENES (GROUP A STREP)019.961 - 24.689 ppm07/15/2025 7:29 AM EDTHealthTrackRx at LabPortSTREPTOCOCCUS PYOGENES (GROUP A STREP)Not Bwjljpwt77.961 - 24.689 ppm07/15/2025 7:29 AM EDTHealthTrackRx at LabPortSTAPHYLOCOCCUS EPIDERMIDIS, HAEMOLYTICUS, LUGDUNENSIS, SAPROPHYTICUS (VQLDT089.961 - 24.689 ppm07/15/2025 7:29 AM EDTHealth[facility]Rx at [facility] STAPHYLOCOCCUS EPIDERMIDIS, HAEMOLYTICUS, LUGDUNENSIS, SAPROPHYTICUS (URINANot Xpydejdd11.961 - 24.689 ppm07/15/2025 7:29 AM EDTHealthTrackRx at [facility] STAPHYLOCOCCUS EPIDERMIDIS, HAEMOLYTICUS, LUGDUNENSIS, SAPROPHYTICUS (URINA0 19.961 - 24.689 ppm07/15/2025 7:29 AM EDTHealthTrackRx at [facility] STAPHYLOCOCCUS EPIDERMIDIS, HAEMOLYTICUS, LUGDUNENSIS, SAPROPHYTICUS (URINANot Ryfsftkx83.961 - 24.689 ppm07/15/2025 7:29 AM EDTHealthTrackRx at [facility] Specimen (Source)Anatomical Location / LateralityCollection Method / Volume Collection TimeReceived XdrrMxkzj12/17/2025 4:23 PM EDT07/15/2025 1:30 AM EDT Narrative Authorizing ProviderResult TypeResult StatusDarlene Olmstead NPLAB BLOOD ORDERABLESFinal ResultPerforming OrganizationAddressCity/State/ZIP CodePhone Number [facility] [address] [address] * OB 14+ weeks anatomy scan (05/31/2025 9:06 AM EDT)Anatomical Region LateralityModalityBodyUltrasoundSpecimen (Source)Anatomical Location / LateralityCollection Method / VolumeCollection TimeReceived Time05/31/2025 2:10 PM EDT Impressions 05/31/2025 2:46 PM EDT Single, live intrauterine , current sonographic age of 20 weeks and 4 days, with an estimated date of delivery of October 14, 2025. TRANSCRIBED BY: ? ELECTRONICALLY SIGNED BY: Adolfo Camp MD Narrative 05/31/2025 2:46 PM EDT FINDINGS: A single, live intrauterine is present with normal cardiac rate of 144 beats per minute. Normal activity and amniotic fluid volume. ??Morphology is grossly normal. ??The placenta is anterior, inferior margin located 9.0 proximal to the closed internal cervical os, 4.0 cm length. ??The current sonographic age is 20 weeks and 4 days, based on the following measurements: BPD ? 5.0 cm ( 21 weeks, 1 days) Head Circumference ?17.8cm (20 weeks, 2 days) Abdominal Circumference ?14.7cm ( 20weeks, 0 days) Femur Length ?3.4cm (20 weeks, 5 days) Presentation ?Cephalic ? Placenta ?Anterior ? These measurements result in an estimated date of delivery of October 14, 2025. ? Procedure Note Adolfo Camp MD - 05/31/2025 FINDINGS: A single, live intrauterine is present with normal cardiacrate of 144 beats per minute. Normal activity and amniotic fluidvolume. Morphology is grossly normal. The placenta is anterior, inferiormargin located 9.0 proximal to the closed internal cervical os, 4.0 cmlength. The current sonographic age is 20 weeks and 4 days, based on thefollowing measurements: BPD 5.0 cm ( 21 weeks, 1 days) Head Circumference 17.8cm (20 weeks, 2 days) Abdominal Circumference 14.7cm ( 20weeks, 0 days) Femur Length 3.4cm (20 weeks, 5 days) Presentation Cephalic Placenta Anterior These measurements result in an estimated date of delivery of September. IMPRESSION: Single, live intrauterine , current sonographic age of 20 weeksand 4 days, with an estimated date of delivery of October 14, 2025. TRANSCRIBED BY: ELECTRONICALLY SIGNED BY: Adolfo Camp MD Authorizing ProviderResult TypeResult StatusAmy [facility] US PROCEDURES Final Result from Last 3 Months Insurance Care Teams Team MemberRelationshipSpecialtyStart DateEnd Date Eliana Flanagan MD [address] [address] [facility]03/04/23
--- OUTSIDE RECORDS SUMMARY | 2025-08-19 12:08 | XMS_ITS | Patient Health Record ---
Author Organization [facility] Serv[facility] es Address [address] [place] [address] Care Team Providers Care Laboratory Geneticist Name Role Phone Bethany Wells Primary Care Provider Dr. Adolfo Reagan Unavailable [phone] Reason For Referral No Information Plan Of Treatment No Information Insurance Providers Payer Name Payer Address Payer Phone Subscriber Number Group Number Insured Name Patient Relationship to Insured Coverage Start Date Coverage End Date [employer] [place] [employer] [address] [address] [place] [address] [id number] JUNIOR TREJO DANETTE Self - patient is the insured 3 Dental W[employer] [facility] [address] [place] [phone] [id number], lf - patient is the wcrxpez2211/27/2022zAnthem BC Medicaid-termed 11/26/22[address] [place] [phone] AYALA, lf - patient is the nixifon51zDENTAL DQ [place]-termed 11/26/22[address] [place] [phone] [id number], lf - patient is the [facility] after [place]-termed 11/26/22[address] [place] [id number], AUTUMNSelf - patient is the [id number] [place] DQ Terminated 10/26/24 [address] [place] [id number] AYALA, Roland - patient is the [id number] Wrap [employer] [place] BCBS Termed [address] [place] [phone] [id number], AUTUMNSelf - patient is the uxiujms6311/27/2022 09/25/2023
--- OUTSIDE RECORDS SUMMARY | 2025-08-19 12:08 | XMS_ITS ---
Author Organization [facility] Healthcare Address [address] [place] [address] Care Team Providers Care Conductor Pullman Name Role Phone Eliana Flanagan MD Primary Care Provider [phone] [facility] ([facility]) Status:Closed (Closed) Start date:08/02/2025 Enrollment date:08/05/2025 Enrollment reason:Identified by Health Plan End date:08/05/2025 Close reason:Unable to reach patient Continued Care and Services Coordination
[2025-08-19 12:16] VITALS: BP 110/55; PULSE 75
[2025-08-19 12:39] VITALS: O2SAT 100
[2025-08-19 13:26] LABS: Glucose Urine UA NEGATIVE (NEGATIVE)
[2025-08-19 13:32] LABS: Cast Seen? NONE SEEN #/LPF (NONE SEEN); Crystals Seen? None Seen #/HPF (None Seen); Urine Culture Indicated YES-LC
== END 2025-08-19 14:55 | disposition home or self-care (01) ==
LOC: FBC 12:04
PROVIDERS: Admitting Provider Obstetrics & Gynecology; PCP Family Medicine; Visit Provider Obstetrics & Gynecology
DX: O99.891 Other specified diseases and conditions complicating pregnancy (principal); R10.9 Unspecified abdominal pain; Z3A.00 Weeks of gestation of pregnancy not specified
CPT/HCPCS: 59025; 81001; 87086; 87186; G0378; G0379

== ENCOUNTER 2025-08-22 08:25 | Outpatient (OUT) | payer OTHER, SELFPAY ==
--- OUTSIDE RECORDS SUMMARY | 2024-03-01 09:30 | XMS_ITS ---
Author Organization [facility] Address [address] [place] [address] Care Team Providers Care Candy Waffle Assembler Name Role Phone Bethany Wells Primary Care Provider Nate Gutierrez [facility] [phone] REASON FOR VISIT FILLING Encounters Encounter Location Date Provider Diagnosis [address] [address] 03/01/2024 Nate Gutierrez Plan Of Treatment No Information Progress Notes * BDOB:11/2004 (19 yo F)Acc No.[id number]:03/01/2024 Patient:?AYALA :?Nate Gaytan DDSDOB:2005???Age:18 Y???Sex: FemaleDate:03/01/2024hone:[phone]:[address] [id number]:Bethany Guerrero Subjective: * Chief Complaints: * F ILLING * Electronic signature of Nate Gutierrez on 08/22/2025 at 08:30 AM EDTSign off status: Pending * Provider: Alyssia Gaytan DDS Date: 0 03/01/2024 Generated for Printing/Faxing/eTransmitting on:?08/22/2025 08:30 AM EDT
--- OUTSIDE RECORDS SUMMARY | 2024-08-16 10:00 | XMS_ITS ---
Author Organization [facility] Address [address] [place] [address] Care Team Providers Care Hvac Estimator Name Role Phone Bethany Wells Primary Care Provider Charlee Lawrence Unavailable [phone] REASON FOR VISIT 6 MONTHS Encounters Encounter Location Date Provider Diagnosis [facility] [address] [place] [address] 08/16/2024 Charlee Keithgamaliel Plan Of Treatment No Information Progress Notes * AYALA BDOB:11/2004 (19 yo F)Acc No.[id number]:08/16/2024 Patient:?LUCY :?Charlee LawrenceDOB:2005???Age:18 Y???Sex: FemaleDate:08/16/2024hone:[phone]:SUDHEER YU [id number]:Bethany Guerrero Subjective: * Chief Complaints: * 6 MONTHS * Electronic signature of Charlee Lawrence on 08/22/2025 at 08:30 AM EDTSign off status: Pending * Provider: Dru Lawrence Date: Generated for Printing/Faxing/eTransmitting on:?08/22/2025 08:30 AM EDT
--- OUTSIDE RECORDS SUMMARY | 2025-04-27 06:00 | XMS_ITS ---
Author Organization [facility] Address [address] [place] [address] Care Team Providers Care Mainframe Consultant Name Role Phone Bethany Wells Primary Care Provider [phone] Dr. Adolfo Reagan [facility] [phone] REASON FOR VISIT JAW AND TOOTH PAIN Encounters Encounter Location Date Provider Diagnosis [facility] [address] [place] [address] 04/27/2025 Adolfo Reagan Plan Of Treatment No Information Progress Notes * BDOB:11/2004 (19 yo F)Acc No.[id number]:04/27/2025 Patient:? :Yelena Reagan DDSDOB:2005???Age:19 Y???Sex: FemaleDate:04/27/2025Phone:[phone]:SUDHEER YU [id number]:Bethany Guerrero Subjective: * Chief Complaints: * J AW AND TOOTH PAIN Billing Information: * Procedure Codes: * Electronic signature of Dr. Adolfo Reagan , [facility], [id number] on 08/22/2025 at 08:30 AM EDTSign off status: Pending * Provider: Parrish Reagan DDS Date: 0 04/27/2025 Generated for Printing/Faxing/eTransmitting on:?08/22/2025 08:30 AM EDT
--- OUTSIDE RECORDS SUMMARY | 2025-05-10 06:00 | XMS_ITS ---
Author Organization [facility] Address [address] [place] [address] Care Team Providers Care Bus Transportation Manager Name Role Phone Bethany Wells Primary Care Provider [phone] Dr. Adolfo Reagan [facility] [phone] REASON FOR VISIT JAW AND TOOTH PAIN Encounters Encounter Location Date Provider Diagnosis [facility] [address] [place] [address] 05/10/2025 Adolfo Reagan Plan Of Treatment No Information Progress Notes * BDOB:11/2004 (19 yo F)Acc No.[id number]:05/10/2025 Patient:? :Yelena Reagan DDSDOB:2005???Age:19 Y???Sex: FemaleDate:05/10/2025Phone:[phone]:SUDHEER YU [id number]:Bethany Guerrero Subjective: * Chief Complaints: * J AW AND TOOTH PAIN * Electronic signature of Dr. Adolfo Reagan , [facility], [id number] on 08/22/2025 at 08:31 AM EDTSign off status: Pending * Provider: Parrish Reagan DDS Date: 0 05/10/2025 Generated for Printing/Faxing/eTransmitting on:?08/22/2025 08:31 AM EDT
--- OUTSIDE RECORDS SUMMARY | 2025-07-13 15:20 | XMS_ITS | Encounter Summary ---
Author Organization [facility] Address [address] [facility] [place] [address] Care Team Providers Care Telephone Solicitor Supervisor Name Role Phone Eliana Flanagan MD Primary Care Provider [phone] Reason for Visit * ReasonCommentsRoutine Visit Encounter Details DateTypeDepartmentCare Team (Latest Contact Info)Qzrlpfzfcbm54/17/2025 3:20 PM EDTRoutine [facility] [address] [place] [phone] Alex Antunez DO [address] [place], [facility]11 Cystitis (Primary Dx); 26 weeks gestation of ([facility]); Second trimester ([facility]); Gastroesophageal reflux in ([facility]); Size of fetus inconsistent with dates, antepartum ([facility]) Social History Tobacco UseTypesPacks/DayYears UsedDateSmoking Tobacco: NeverPassive Smoke Exposure: NeverSmokeless Tobacco: NeverAlcohol UseStandard Drinks/WeekComments Never0 (1 standard drink = 0.6 oz pure alcohol)PHQ-2AnswerDate RecordedPatient Health Questionnaire-2 Wllji600Estimated Date of Delivery XuoerlbkCvb24/19/2025Based on last menstrual period of 01/07/2025Sex and Gender InformationValueDate RecordedSex Assigned at BirthNot on fileLegal SexFemale 01/08/2023 6:51 PM EDTGender IdentityNot on fileSexual OrientationNot on file documented as of this encounter Last Filed Vital Signs Vital SignReadingTime TakenCommentsBlood Iroijnxh237/6809 3:28 PM EDT Pulse--Temperature--Respiratory Rate--Oxygen Saturation--Inhaled Oxygen Concentration--Qvcysz16.8 kg (167 lb 1.9 oz)07/13/2025 3:28 PM EDTHeight--Body Mass Index28.6906 11:07 AM EDTdocumented in this encounter Progress Notes * Darlene Olmstead NP - 07/13/2025 3:20 PM EDT Reason for Appointment: Patient ID: Roopa is a 19 y.o. female who presents for Routine Visit Patient presents today for Return OB appointment. MEDICATIONS Current Outpatient Medications Medication Instructions diphenhydrAMINE (BENADRYL) 50 mg, Nightly PRN nitrofurantoin (macrocrystal-monohydrate) (MACROBID) 100 mg, Oral, 2 times daily omeprazole (PRILOSEC) 20 mg, Oral, Daily before breakfast, Do not crush or chew. MV-Min-Fe Fum-FA-DHA ( 1 PO) 1 tablet, Daily ALLERGIES Allergies Allergen Reactions Penicillins Unknown PROBLEMS Active Ambulatory Problems Diagnosis Date Noted Current severe episode of major depressive disorder without psychotic features without prior episode (HCC) 12/30/2023 Exercise-induced asthma (HCC) 12/30/2023 Patellofemoral syndrome of right knee 12/30/2023 PCOS (polycystic ovarian syndrome) 09/07/2024 Resolved Ambulatory Problems Diagnosis Date Noted No Resolved Ambulatory Problems Past Medical History: Diagnosis Date Left ovarian cyst 05/05/2021 Personal history of medical treatment 05/05/2021 Personal history of medical treatment 10/12/2021 Personal history of medical treatment 01/02/2022 HISTORY PAST MEDICAL HISTORY SOCIAL HISTORY Past Medical History: Diagnosis Date Left ovarian cyst 05/05/2021 Small free fluid is seen in the posterior cul de sac Personal history of medical treatment 05/05/2021 Normal Appendix, No Kidney Stones, Dominant follicle or cyst measuring 2.9 cm in the left ovary Personal history of medical treatment 10/12/2021 No ovarian Torsion. Left Ovary contains a 4.1 cm benign simple appearing cyst. Bicornuate uterus Personal history of medical treatment 01/02/2022 U/S interval resolution of previously identified left ovarian cyst Social History Tobacco Use Smoking status: Never Passive exposure: Never Smokeless tobacco: Never Vaping Use Vaping status: Never Used Substance Use Topics Alcohol use: Never Drug use: Never FAMILY HISTORY No family history on file. SURGICAL HISTORY History reviewed. No pertinent surgical history. REVIEW OF SYSTEMS Review of Systems: Review of Systems Constitutional: Negative. HENT: Negative. Eyes: Negative. Respiratory: Negative. Cardiovascular: Negative. Gastrointestinal: Negative. Genitourinary: Negative. Musculoskeletal: Negative. Skin: Negative. Neurological: Negative. All other systems reviewed and are negative. Hematological: Negative. Endocrine: Negative. Allergic/Immunologic: Negative. OBJECTIVE Objective: Physical Exam Constitutional: Appearance: Normal appearance. She is well-developed. Cardiovascular: Rate and Rhythm: Normal rate and regular rhythm. Pulmonary: Effort: Pulmonary effort is normal. Breath sounds: Normal breath sounds. Abdominal: General: Bowel sounds are normal. There is no distension. Palpations: Abdomen is soft. Tenderness: There is no abdominal tenderness. There is no guarding or rebound. Musculoskeletal: General: No swelling. Normal range of motion. Right lower leg: No edema. Left lower leg: No edema. Neurological: Mental Status: She is alert and oriented to person, place, and time. Skin: General: Skin is warm and dry. Psychiatric: Mood and Affect: Mood normal. Behavior: Behavior normal. Vitals and nursing note reviewed. Exam conducted with a transfer station attendant present. Vitals: Estimated body mass index is 28.69 kg/m?? as calculated from the following: Height as of 04/05/25: 5' 4 . Weight as of this encounter: 167 lb 1.9 oz. BP: 120/68 Patient's last menstrual period was 01/07/2025. ASSESSMENT & PLAN ICD-10-CM 1. Cystitis N30.90 nitrofurantoin, macrocrystal-monohydrate, (Macrobid) 100 MG capsule Urine culture 2. 26 weeks gestation of ([facility]) Z3A.26 POCT urinalysis dipstick manually resulted 3. Second trimester ([facility]) Z34.92 POCT urinalysis dipstick manually resulted US OB follow up transabdominal approach 4. Gastroesophageal reflux in ([facility]) O99.619 omeprazole (PriLOSEC) [address] capsule K21.9 Return OB: Patient presents today for a routine obstetrics appointment. Patient is currently 26w5d . Patient states she is doing well but has complaints of being tired due to current . Patient has verbalizes frequent movement. labor precautions was discussed/given and patient was instructed to perform kick counts three times a day. Orders Placed This Encounter Procedures Urine culture US OB follow up transabdominal approach POCT urinalysis dipstick manually resulted Follow Up: Patient with + nitrates and leukocytes without symptoms. Will send in prescription for Macrobid andsend urine for culture. Patient is to return to office in 2 week for routine OB appointment. Documented by Darlene Olmstead NP on behalf of: Alex Antunez DO documented in this encounter Miscellaneous Notes * Addendum Note - Anuja Knowles LPN - 07/13/2025 3:20 PM EDTAddended by: ANUJA KNOWLES on: 08/10/2025 01:17 PM Modules accepted: Orders documented in this encounter Plan of Treatment DateTypeDepartmentCare Team (Latest Contact Info)Qftawmgtsoh47/30/2025 3:20 PM EDTRoutine [facility] [address] [place] [phone] Munira Yu PA [address] [place] [address] NameTypePriorityAssociated DiagnosesOrder ScheduleUrine cultureMicrobiology Routine Cystitis Ordered: 07/13/2025documented as of this encounter Procedures Procedure NamePriorityDate/TimeAssociated DiagnosisCommentsPOCT URINALYSIS GMPGMMJFFzlyqsi40/17/2025 3:34 PM EDT 26 weeks gestation of ([facility]) Second trimester ([facility]) documented in this encounter Results * US OB follow up transabdominal approach (08/12/2025 12:55 PM EDT)Anatomical RegionLateralityModalityBodyUltrasoundSpecimen (Source)Anatomical Location / LateralityCollection Method / VolumeCollection TimeReceived Time08/12/2025 1:04 PM EDT Impressions 08/12/2025 1:18 PM EDT 1. Single, live intrauterine , current sonographic age of 30 weeks and 5 days, with an estimated date of delivery of October 15, 2025 (prior FRED October 14, 2025) 2. ??Current estimated weight 1528 grams, 18.7% weight by percentile (prior 31.6%) * ??Estimated Weight (g) by Percentile is based upon an accurate estimated age based onlast menstrual period. ?? TRANSCRIBED BY: ? ELECTRONICALLY SIGNED BY: Adolfo Camp MD Narrative 08/12/2025 1:18 PM EDT FINDINGS: Comparison May 31, 2025. A single, live intrauterine is present with normal cardiac rate of 135 beats per minute. Normal activity and amniotic fluid volume. Amniotic fluid index is 17 cm. ??Morphology is grossly normal. The current sonographic age is 30 weeks and 5 days, based on the following measurements: ?BPD ? 7.7 cm (30 weeks, 6 days) ?Head Circumference ?29.1 cm (32 weeks, 0 days) ?Abdominal Circumference ?25.9 cm (30 weeks, 0 days) ?Femur Length ?5.7 cm (29 weeks, 5 days) ?Presentation ? Cephalic ? Weight (g) by Percentile ??18.7% * These measurements result in an estimated date of delivery of October 15, 2025. ?? The current estimated weight is 1528 grams (3 pounds, 6 ounces). ?? Procedure Note Adolfo Camp MD - 08/12/2025 FINDINGS: Comparison May 31, 2025. A single, live intrauterine is present with normal cardiacrate of 135 beats per minute. Normal activity and amniotic fluidvolume. Amniotic fluid index is 17 cm. Morphology is grossly normal. Thecurrent sonographic age is 30 weeks and 5 days, based on the followingmeasurements: BPD 7.7 cm (30 weeks, 6 days) Head Circumference 29.1 cm (32 weeks, 0 days) Abdominal Circumference 25.9 cm (30 weeks, 0 days) Femur Length 5.7 cm (29 weeks, 5 days) Presentation Cephalic Weight (g) by Percentile 18.7% * These measurements result in an estimated date of delivery of September. The current estimated weight is 1528 grams (3 pounds, 6ounces). IMPRESSION: 1. Single, live intrauterine , current sonographic age of 30weeks and 5 days, with an estimated date of delivery of October 15, 2025(prior FRED October 14, 2025) 2. Current estimated weight 1528 grams, 18.7% weight by percentile(prior 31.6%) * Estimated Weight (g) by Percentile is based upon an accurateestimated age based on last menstrual period. TRANSCRIBED BY: ELECTRONICALLY SIGNED BY: Adolfo Camp MD Authorizing ProviderResult TypeResult StatusDarlene Olmstead NPIMG OB US PROCEDURESFinal Result * (ABNORMAL) POCT urinalysis dipstick manually resulted (07/13/2025 3:34 PM EDT) ComponentValueRef RangeTest MethodAnalysis TimePerformed AtPathologist SignatureColor, UAAmberClarity, UAClearGlucose, UANegativeNegative - 1999(110) ++++ mg/dLBilirubin, UANegativeNegative - 4(70) +++ mg/dLKetones, UANegative Negative - 160(16) ++++ mg/dLSpec Grav, UA1.0151 - 1.03Blood, UANegative Negative - 50 Tarun/mcLpH, UA6.55 - 9Protein, UAPositiveNegative - 2000(20) ++++ mg/dLUrobilinogen, UA1.00.2 - 12 mg/dLLeukocytes, UAPositiveNegative - 500+++ Joelle/mcLNitrite, UAPositiveNegative - PositiveSpecimen (Source)Anatomical Location / LateralityCollection Method / VolumeCollection TimeReceived Time Urine07/13/2025 3:34 PM EDT Narrative Authorizing ProviderResult TypeResult StatusCorey Tulio DOPOINT OF CARE TEST ENTER/EDIT ORDERABLESFinal Result documented in this encounter Visit Diagnoses Diagnosis Cystitis- Primary Unspecified cystitis 26 weeks gestation of ([facility]) Second trimester ([facility]) state, incidental Gastroesophageal reflux in ([facility]) Size of fetus inconsistent with dates, antepartum ([facility]) Second trimester ([facility]) state, incidental Cystitis Unspecified cystitis Size of fetus inconsistent with dates, antepartum ([facility]) documented in this encounter Care Teams Team MemberRelationshipSpecialtyStart DateEnd Date Eliana Flanagan MD [address] [place] [address] PCP - GeneralFamily Medicine03/04/23documented as of this encounter
--- OUTSIDE RECORDS SUMMARY | 2025-07-27 13:50 | XMS_ITS | Encounter Summary ---
Author Organization [facility] Address [address] [facility] [place] [address] Care Team Providers Care Picture Hanger Name Role Phone Eliana Flanagan MD Primary Care Provider Reason for Visit * ReasonCommentsRoutine Visit Encounter Details DateTypeDepartmentCare Team (Latest Contact Info)Tshwyzblxcj07/01/2025 1:50 PM EDTRoutine [facility] [address] [place] [address] Darlene Olmstead, ADVERTISING JOB TITLES [address] [place] [address] Anemia, unspecified type (Primary Dx); 28 weeks gestation of ([facility]); Third trimester ([facility]); Elevated glucose tolerance test Social History Tobacco UseTypesPacks/DayYears UsedDateSmoking Tobacco: NeverPassive Smoke Exposure: NeverSmokeless Tobacco: NeverAlcohol UseStandard Drinks/WeekComments Never0 (1 standard drink = 0.6 oz pure alcohol)PHQ-2AnswerDate RecordedPatient Health Questionnaire-2 Ymzfm564Estimated Date of Delivery NvkdqelmUxe27/19/2025Based on last menstrual period of 01/07/2025Sex and Gender InformationValueDate RecordedSex Assigned at BirthNot on fileLegal SexFemale 01/08/2023 6:51 PM EDTGender IdentityNot on fileSexual OrientationNot on file documented as of this encounter Last Filed Vital Signs Vital SignReadingTime TakenCommentsBlood Puqzqsdz548/7010 1:59 PM EDT Pulse--Temperature--Respiratory Rate--Oxygen Saturation--Inhaled Oxygen Concentration--Fwukbm73.2 kg (168 lb)07/27/2025 1:59 PM EDTHeight--Body Mass [...] nursing note reviewed. Exam conducted with a svp monetization present. Vitals: Estimated body mass index is 28.84 kg/m?? as calculated from the following: Height as of 04/05/25: 5' 4 . Weight as of this encounter: 168 lb. BP: 112/70 Patient's last menstrual period was 01/07/2025. ASSESSMENT & PLAN ICD-10-CM 1. Anemia, unspecified type D64.9 iron polysaccharides (ProFe) 391.3 (180 Fe) MG capsule 2. 28 weeks gestation of ([facility]) Z3A.28 POCT urinalysis dipstick manually resulted 3. Third trimester ([facility]) Z34.93 4. Elevated glucose tolerance test [...] Plan of Treatment DateTypeDepartmentCare Team (Latest Contact Info)Mvcjqibgkgn75/30/2025 3:20 PM EDTRoutine [facility] [address] [place] [address] Munira Yu PA [address] [place] [address] NameTypePriorityAssociated DiagnosesOrder ScheduleGlucose tolerance, 3 hoursLab Routine Elevated glucose tolerance test Expected: 07/27/2025 (Approximate), Expires: 07/27/2026documented as of this encounter Procedures Procedure NamePriorityDate/TimeAssociated DiagnosisCommentsPOCT URINALYSIS EWCXLIVEYggfqid50/01/2025 2:06 PM EDT 28 weeks gestation of ([facility]) documented in this encounter Results * [...] unspecified type- Primary 28 weeks gestation of ([facility]) Third trimester ([facility]) state, incidental Elevated glucose tolerance test Impaired glucose tolerance test documented in this encounter Care Teams Team MemberRelationshipSpecialtyStart DateEnd Date Eliana Flanagan MD [address] [place] [address] PCP - GeneralFamily Medicine03/04/23documented as of this encounter
--- OUTSIDE RECORDS SUMMARY | 2025-08-11 14:30 | XMS_ITS | Encounter Summary ---
Author Organization [facility] Address [address] [place] [address] Care Team Providers Care Windows Server Architect Name Role Phone Eliana Flanagan MD Primary Care Provider [phone] Encounter Details DateTypeDepartmentCare Team (Latest Contact Info)Jibtcclszjy11/16/2025 2:30 PM EDTAncillary Procedure [facility] [address] [place] [address] Second trimester ([facility]); Cystitis; Size of fetus inconsistent with dates, antepartum ([facility]) Social History Tobacco UseTypesPacks/DayYears UsedDateSmoking Tobacco: NeverPassive Smoke Exposure: NeverSmokeless Tobacco: NeverAlcohol UseStandard Drinks/WeekComments Never0 (1 standard drink = 0.6 oz pure alcohol)PHQ-2AnswerDate RecordedPatient Health Questionnaire-2 Fwlid506Estimated Date of Delivery GhdgixxmZfa96/19/2025Based on last menstrual period of 01/07/2025Sex and Gender InformationValueDate RecordedSex Assigned at BirthNot on fileLegal SexFemale 01/08/2023 6:51 PM EDTGender IdentityNot on fileSexual OrientationNot on file documented as of this encounter Plan of Treatment DateTypeDepartmentCare Team (Latest Contact Info)Anuthsbmmnc53/30/2025 3:20 PM EDTRoutine [facility] [address] [place] [address] Munira Yu PA [address] [place] [address] documented as of this encounter Procedures Procedure NamePriorityDate/TimeAssociated DiagnosisCommentsUS OB FOLLOW UP TRANSABDOMINAL XRJKPHXUZfduokv98/17/2025 12:55 PM EDT Second trimester ([facility]) Cystitis Size of fetus inconsistent with dates, antepartum ([facility]) documented in this encounter Results * US [...] MD Authorizing ProviderResult TypeResult StatusDarlene Olmstead NPIMG [facility] PROCEDURESFinal Result documented in this encounter Visit Diagnoses Diagnosis Second trimester ([facility]) state, incidental Cystitis Unspecified cystitis Size of fetus inconsistent with dates, antepartum ([facility]) documented in this encounter Care Teams Team MemberRelationshipSpecialtyStart DateEnd Date Eliana Flanagan MD [address] [facility] [address] [place] [address] PCP - GeneralFamily Medicine03/04/23documented as of this encounter
--- OUTSIDE RECORDS SUMMARY | 2025-08-11 15:00 | XMS_ITS | Encounter Summary ---
Author Organization [facility] Address [address] [facility] [place] [address] Care Team Providers Care Java Technical Manager Name Role Phone Eliana Flanagan MD Primary Care Provider [phone] Reason for Visit * ReasonCommentsRoutine Visit Encounter Details DateTypeDepartmentCare Team (Latest Contact Info)Rnfmflukfbg24/16/2025 3:00 PM EDTRoutine [facility] [address] [place] [address] Munira Yu PA [address] [place], [facility] Third trimester ([facility]); 30 weeks gestation of ([facility]) Social History Tobacco UseTypesPacks/DayYears UsedDateSmoking Tobacco: NeverPassive Smoke Exposure: NeverSmokeless Tobacco: NeverAlcohol UseStandard Drinks/WeekComments Never0 (1 standard drink = 0.6 oz pure alcohol)PHQ-2AnswerDate RecordedPatient Health Questionnaire-2 [id number] Date of Delivery RphhtinxPto82/19/2025Based on last menstrual period of 01/07/2025Sex and Gender InformationValueDate RecordedSex Assigned at BirthNot on fileLegal SexFemale 01/08/2023 6:51 PM EDTGender IdentityNot on fileSexual OrientationNot on file documented as of this encounter Last Filed Vital Signs Vital SignReadingTime TakenCommentsBlood Abmvhuem113/6208/11/2025 3:16 PM EDT Pulse--Temperature--Respiratory Rate--Oxygen Saturation--Inhaled Oxygen Concentration--Jgcixt52.4 kg (168 lb 8 oz)08/11/2025 3:16 PM EDTHeight--Body Mass Index28.9206 11:07 AM EDTdocumented in this encounter Progress Notes * SPIKE Guzman - 08/11/2025 3:00 PM EDT Reason for Appointment: Patient ID: Veronica Ray Blas is a 19 y.o. female who presents for Routine Visit Patient presents today for Return OB appointment. MEDICATIONS Current Outpatient Medications Medication Instructions diphenhydrAMINE (BENADRYL) 50 mg, Nightly PRN iron polysaccharides (PROFE) 391.3 mg, Oral, Daily omeprazole (PRILOSEC) 20 mg, Oral, Daily before breakfast, Do not crush or chew. MV-Min-Fe Fum-FA-DHA ( 1 PO) 1 tablet, Daily ALLERGIES Allergies[1] PROBLEMS Active Ambulatory Problems Diagnosis Date Noted Current severe episode of major depressive disorder without psychotic features without prior episode (HCC) 12/30/2023 Exercise-induced asthma (HCC) 12/30/2023 Patellofemoral syndrome of right knee 12/30/2023 PCOS (polycystic ovarian syndrome) 09/07/2024 Size of fetus inconsistent with dates, antepartum ([facility]) 08/10/2025 Resolved Ambulatory Problems Diagnosis Date Noted No Resolved Ambulatory Problems Past Medical History: Diagnosis Date Left ovarian cyst 05/05/2021 Personal history of medical treatment 05/05/2021 Personal history of medical treatment 10/12/2021 Personal history of medical treatment 01/02/2022 HISTORY PAST MEDICAL HISTORY SOCIAL HISTORY Medical History[2] Social History Tobacco Use Smoking status: Never Passive exposure: Never Smokeless tobacco: Never Vaping Use Vaping status: Never Used Substance Use Topics Alcohol use: Never Drug use: Never FAMILY HISTORY Family History[3] SURGICAL HISTORY Surgical History[4] REVIEW OF SYSTEMS Review of Systems: Review of Systems Constitutional: Negative. HENT: Negative. Eyes: Negative. Respiratory: Negative. Cardiovascular: Negative. Gastrointestinal: Negative. Genitourinary: Negative. Musculoskeletal: Negative. Skin: Negative. Neurological: Negative. All other systems reviewed and are negative. Hematological: Negative. Endocrine: Negative. Allergic/Immunologic: Negative. OBJECTIVE Objective: Physical Exam Constitutional: Appearance: Normal appearance. She is normal weight. HENT: Head: Normocephalic. Cardiovascular: Rate and Rhythm: Normal rate. Pulses: Normal pulses. Pulmonary: Effort: Pulmonary effort is normal. Breath sounds: Normal breath sounds. Abdominal: Palpations: Abdomen is soft. Musculoskeletal: General: Normal range of motion. Neurological: General: No focal deficit present. Mental Status: She is alert and oriented to person, place, and time. Psychiatric: Mood and Affect: Mood normal. Behavior: Behavior normal. Thought Content: Thought content normal. Judgment: Judgment normal. Vitals and nursing note reviewed. Vitals: Estimated body mass index is 28.92 kg/m?? as calculated from the following: Height as of 04/05/25: 5' 4 . Weight as of this encounter: 168 lb 8 oz. BP: 110/62 Patient's last menstrual period was 01/07/2025. ASSESSMENT & PLAN ICD-10-CM 1. Third trimester ([facility]) Z34.93 POCT urinalysis dipstick manually resulted 2. 30 weeks gestation of ([facility]) Z3A.30 Return OB: Patient presents today for a routine obstetrics appointment. Patient is currently 30w6d . Patient states she is doing well but has complaints of being tired due to current . Patient has verbalizes frequent movement. labor precautions was discussed/given and patient was instructed to perform kick counts three times a day. Orders Placed This Encounter Procedures POCT urinalysis dipstick manually resulted Follow Up: Patient is to return to office in 2 week for routine OB appointment. Documented by SPIKE Guzman on behalf of: SPIKE Guzman [1] Allergies Allergen Reactions Penicillins Unknown [2] Past Medical History: Diagnosis Date Left ovarian [...] resolution of previously identified left ovarian cyst [3] No family history on file. [4] No past surgical history on file. documented in this encounter Plan of Treatment DateTypeDepartmentCare Team (Latest Contact Info)Aqshlplqgii36/30/2025 3:20 PM EDTRoutine [facility] [address] [place] [phone] Munira Yu PA [address] [place] [address] documented as of this encounter Procedures Procedure NamePriorityDate/TimeAssociated DiagnosisCommentsPOCT URINALYSIS RGQWSRFVZlfjomg99/16/2025 3:21 PM EDT Third trimester ([facility]) documented in this encounter Results * (ABNORMAL) POCT urinalysis dipstick manually resulted (08/11/2025 3:21 PM EDT) ComponentValueRef RangeTest MethodAnalysis TimePerformed AtPathologist SignatureColor, UAYellowClarity, UAClearGlucose, UANegativeNegative - 2000(110) ++++ mg/dLBilirubin, UANegativeNegative - 4(70) +++ mg/dLKetones, UA NegativeNegative - 160(16) ++++ mg/dLSpec Grav, UA1.0151 - 1.03Blood, UA NegativeNegative - 50 Tarun/mcLpH, UA6.05 - 9Protein, UANegativeNegative - 2000(20) ++++ mg/dLUrobilinogen, UA0.20.2 - 12 mg/dLLeukocytes, UANegative Negative - 500+++ Joelle/mcLNitrite, UANegativeNegative - PositiveSpecimen (Source)Anatomical Location / LateralityCollection Method / VolumeCollection TimeReceived IxgcYkldw76/16/2025 3:21 PM EDT Narrative Authorizing ProviderResult TypeResult StatusMunira Yu PAPOINT OF CARE TEST ENTER/EDIT ORDERABLESFinal Result documented in this encounter Visit Diagnoses Diagnosis Third trimester ([facility]) state, incidental 30 weeks gestation of ([facility]) documented in this encounter Care Teams Team MemberRelationshipSpecialtyStart DateEnd Date Eliana Flanagan MD [address] [phone] PCP - GeneralFamily Medicine03/04/23documented as of this encounter
--- OUTSIDE RECORDS SUMMARY | 2025-08-22 08:30 | XMS_ITS | Encounter Summary ---
Author Organization [facility] Address [address] [facility] [place] [address] Care Team Providers Care Speeder Worker Name Role Phone Eliana Flanagan MD Primary Care Provider [phone] Encounter Details DateTypeDepartmentCare Team (Latest Contact Info)Npzmynuqmii48/24/2025linisync Result Encounter [facility] External Department Unsolicited Alex Antunez DO [address] [facility] [address] Umm [place], [facility] Social History Tobacco UseTypesPacks/DayYears UsedDateSmoking Tobacco: NeverPassive Smoke Exposure: NeverSmokeless Tobacco: NeverAlcohol UseStandard Drinks/WeekComments Never0 (1 standard drink = 0.6 oz pure alcohol)PHQ-2AnswerDate RecordedPatient Health Questionnaire-2 Ldxof553Estimated Date of Delivery NobrvjepGet26/19/2025Based on last menstrual period of 01/07/2025Sex and Gender InformationValueDate RecordedSex Assigned at BirthNot on fileLegal SexFemale 01/08/2023 6:51 PM EDTGender IdentityNot on fileSexual OrientationNot on file documented as of this encounter Plan of Treatment DateTypeDepartmentCare Team (Latest Contact Info)Jrkzkcmvttf58/30/2025 3:20 PM EDTRoutine [facility] [address] [place] [address] Munira Yu PA [address] [facility] [address] [place] [address] NameTypePriorityAssociated DiagnosesDate/TimeURINE CULTURE, ROUTINELabRoutine 08/19/2025 12:18 PM EDTdocumented as of this encounter Procedures Procedure NamePriorityDate/TimeAssociated DiagnosisCommentsURINE CULTURE, TOQKVQJGhpdvvm49/24/2025 12:18 PM EDTTBH URINE MICROSCOPIC EFMJBxkjbyo73/24/2025 12:18 PM EDT [facility] UA (CLEAN/CATCH) PATROL COMMUNITY SERVICE OFFICER/MICRO IF IND.Lkoxzib1808/19/2025 12:18 PM EDT documented in this encounter Results * (ABNORMAL) [facility] URINE MICROSCOPIC ONLY (08/19/2025 12:18 PM EDT)ComponentValue Ref RangeTest MethodAnalysis TimePerformed AtPathologist SignatureTBH WBC5-10 (A)NONE SEEN #/HPFTBHTBH RBCNONE SEEN0 - 2 #/HPFTBHBACTERIA URINEMODERATE(A) NONE SEEN #/HPFTBHMUCUS URINENONE SEENNONE SEENTBHSQUAMOUS EPITHELIAL CELL URINEMODERATE(A)NONE/RARE #/LPFTBHCRYSTALS SEEN?None SeenNone Seen #/HPFTBH CAST SEEN?NONE SEENNONE SEEN #/LPFTBHURINE CULTURE INDICATEDYES-LCTBHSpecimen (Source)Anatomical Location / LateralityCollection Method / VolumeCollection TimeReceived Time08/19/2025 12:18 PM EDT1 1:24 PM EDT Narrative CLINISYNC - 08/19/2025 1:32 PM EDT Authorizing ProviderResult TypeResult StatusCorey Tulio DOCLINISYNCFinal Result Performing OrganizationAddressCity/State/ZIP CodePhone Number CLINISYNC [facility] * (ABNORMAL) [facility] UA (CLEAN/CATCH) PATROL COMMUNITY SERVICE OFFICER/MICRO IF IND. (08/19/2025 12:18 PM EDT) ComponentValueRef RangeTest MethodAnalysis TimePerformed AtPathologist SignatureCOLOR URINELT. YELLOWYELLOWTBHCLARITY URINECLEARCLEARTBHSPECIFIC GRAVITY URINE1.0101.005 - 1.025TBHPH URINE7.05.0 - 9.0TBHPROTEIN URINENEGATIVE NEG/TRACE mg/dLTBHGLUCOSE URINE UANEGATIVENEGATIVE mg/dLTBHBILIRUBIN URINE NEGATIVENEGATIVETBHKETONES URINENEGATIVENEGATIVE mg/dLTBHBLOOD URINENEGATIVE NEGATIVETBHNITRITE URINENEGATIVENEGATIVETBHUROBILINOGEN URINE0.20.2 - 1.0 EU/dLTBHLEUKOCYTE ESTERASE URINESMALL(A)NEGATIVETBHURINE MICROSCOPIC INDICATED YESTBHSpecimen (Source)Anatomical Location / LateralityCollection Method / VolumeCollection TimeReceived Time08/19/2025 12:18 PM EDT1 1:24 PM EDT Narrative CLINISYNC - 08/19/2025 1:32 PM EDT Authorizing ProviderResult TypeResult StatusCorey Tulio DOCLINISYNCFinal Result Performing OrganizationAddressCity/State/ZIP CodePhone Number CLINISYNC [facility] documented in this encounter Visit Diagnoses Not on filedocumented in this encounter Care Teams Team MemberRelationshipSpecialtyStart DateEnd Date Eliaan Flanagan MD [address] [place] [address] PCP - GeneralFamily Medicine03/04/23documented as of this encounter
--- OUTSIDE RECORDS SUMMARY | 2025-08-22 08:30 | XMS_ITS | Clinical Summary ---
Author Organization [facility] Address [address] [place] [address] Care Team Providers Care Systems Lead Name Role Phone Eliana Flanagan MD Primary Care Provider [phone] Allergies Active AllergyReactionsCriticalityNoted WsyxCvvcehbqUkjiokgvnnvCvvfctr10/12/2024 Medications MedicationSigDispense QuantityRefillsLast FilledStart DateEnd DateStatus MV-Min-Fe [...] mg) by mouth Daily 30 capsule 5Active Active Problems ProblemNoted DateDiagnosed DateSize of fetus inconsistent with dates, antepartum ([facility])08/10/2025PCOS (polycystic ovarian syndrome)09/07/2024urrent severe episode of major depressive disorder without psychotic features without prior uaetfnf0812/30/2023Exercise-induced jkaxjn0612/30/2023atellofemoral syndrome of right knee12/30/2023Estimated Date of XxrhuatxWppusjqrFzj79/19/2025Based on last menstrual period of 01/07/2025 Encounters DateTypeDepartmentCare XpnoLusvtrsbmhq60/24/2025linisync Result Encounter [facility] External Department Unsolicited Alex Antunez DO 08/11/2025 3:00 PM EDTRoutine [facility] [place] [address] Mnuira Yu PA Third trimester ([facility]); 30 weeks gestation of ([facility])08/11/2025 2:30 PM EDTAncillary Procedure [facility] [place] [address] Second trimester ([facility]); Cystitis; Size of fetus inconsistent with dates, antepartum ([facility])08/05/2025Patient Outreach [place] [address] [place] [address] Munira Degroot LPN 08/04/2025bstract [place] [address] [place] [address] Munira Degroot LPN 07/27/2025 1:50 PM EDTRoutine [facility] [place] [address] Darlene Olmstead, MARION Anemia, unspecified type (Primary Dx); 28 weeks gestation of ([facility]); Third trimester ([facility]); Elevated glucose tolerance test07/27/2025amboo flowsheet [facility] AGUSTIN [address] [place] [address] [place] [phone] Darlene Olmstead NP 07/26/2025Telephone [facility] [place] [address] Shani Hinds MA 07/25/2025linisync Result Encounter NOMS External Department Unsolicited Provider, Generic External Data 07/13/2025 3:20 PM EDTRoutine [facility] [place] [address] Alex Antunez, Cystitis (Primary Dx); 26 weeks gestation of ([facility]); Second trimester ([facility]); Gastroesophageal reflux in ([facility]); Size of fetus inconsistent with dates, antepartum ([facility])5Bamb flowsheet [facility] [address] [place] [address] Alex Antunez, DO 06/15/2025 1:50 PM EDTRoutine [facility] [address] [place] [address] Alex Antunez, 22 weeks gestation of ([facility]); Second trimester ([facility]); Diabetes mellitus pndicmggl64/20/2025Bamb flowsheet [facility] [address] [place] [address] Alex Antunez, DO 5Abstract [facility] [place] [facility] [address] [place] [address] Alex Antunez, DO 06/02/2025bstract [facility] [address] [place] [address] Alex Antunez, DO 05/31/2025 8:30 AM EDTAncillary Procedure [facility] [address] [place] [address] from Last 3 Months Family History RelationNameStatusCommentsFatherAliveMotherAlive Social History Tobacco UseTypesPacks/DayYears UsedDateSmoking Tobacco: NeverPassive Smoke Exposure: NeverSmokeless Tobacco: Never Tobacco Cessation:Counseling Given: Yes Alcohol UseStandard Drinks/WeekCommentsNever0 (1 standard drink = 0.6 oz pure alcohol)PHQ-2AnswerDate RecordedPatient Health Questionnaire-2 Rklvb969 Estimated Date of KrkamhboIedserpmZlc22/19/2025Based on last menstrual period of 01/07/2025Sex and Gender InformationValueDate RecordedSex Assigned at BirthNot on fileLegal MdtVzygbh75/15/2023 6:51 PM EDTGender IdentityNot on file Sexual OrientationNot on file Last Filed Vital Signs Vital SignReadingTime TakenCommentsBlood Axlhlkyp391/6208/11/2025 3:16 PM EDT Dseta438904/05/2025 11:07 AM EDTTemperature--Respiratory Lzbf396104/05/2025 11:07 AM EDTOxygen Mrisgoanyk50%04/05/2025 11:07 AM EDTInhaled Oxygen Concentration-- Afpjon32.4 kg (168 lb 8 oz)08/11/2025 3:16 PM IEGCngwfo273.6 cm (5' 4 ) 04/05/2025 11:07 AM EDTBody Mass Index28.9204/05/2025 11:07 AM EDT Plan of Treatment DateTypeDepartmentCare Team (Latest Contact Info)Qcoywpmwrwo43/30/2025 3:20 PM EDTRoutine [facility] [address] [place] [address] Munira Yu PA [address] [place], [place] [id number] Health MaintenanceDue DateLast DoneCommentsInfluenza Vaccine (#1)06/27/2025 Procedures Procedure NamePriorityDate/TimeAssociated DiagnosisCommentsURINE CULTURE, VYBNEYUYyanoul88/24/2025 12:18 PM EDTTBH URINE MICROSCOPIC WXLCTmdhmpu97/24/2025 12:18 PM EDT [facility] UA (CLEAN/CATCH) REPLENISHMENT MERCHANDISING ASSOCIATE/MICRO IF IND.Oqbtjxr0708/19/2025 12:18 PM EDT US OB FOLLOW UP TRANSABDOMINAL AZLJQPZQNjplwty99/17/2025 12:55 PM EDT Second trimester ([facility]) Cystitis Size of fetus inconsistent with dates, antepartum ([facility]) POCT URINALYSIS EHAEHVIIVnzubwa89/16/2025 3:21 PM EDT Third trimester ([facility]) POCT URINALYSIS IAEUODHZCnlewbu74/01/2025 2:06 PM EDT 28 weeks gestation of ([facility]) GLUCOSE 1 XNJJJpobvza75/29/2025 1:17 PM EDT ALL CBC WITH AUTO FTMYOlcvuhp45/29/2025 1:17 PM EDT URINARY TRACT INFECTION (HTRX)Lokltia2307/13/2025 4:23 PM EDT POCT URINALYSIS HYSGEQXMFbvcikj52/17/2025 3:34 PM EDT 26 weeks gestation of ([facility]) Second trimester ([facility]) POCT URINALYSIS TNYONYCRFbhxjur52/20/2025 1:59 PM EDT 22 weeks gestation of ([facility]) Second trimester ([facility]) US OB 14+ WEEKS ANATOMY FYNNJxqpvsb29/05/2025 9:06 AM EDT Screening, , for anatomic survey ([facility]) from Last 3 Months Results * (ABNORMAL) [facility] URINE MICROSCOPIC ONLY [...] 12:18 PM EDT1 1:24 PM EDT Narrative [facility] - 08/19/2025 1:32 PM EDT Authorizing ProviderResult TypeResult StatusCorey Tulio DOCLINISYNCFinal Result Performing OrganizationAddressCity/State/ZIP CodePhone Number [place] [facility] * (ABNORMAL) [facility] UA (CLEAN/CATCH) REPLENISHMENT MERCHANDISING ASSOCIATE/MICRO IF IND. (08/19/2025 12:18 PM EDT) ComponentValueRef RangeTest MethodAnalysis TimePerformed AtPathologist SignatureCOLOR URINELT. YELLOWYELLOWTBHCLARITY URINECLEARCLEARTBHSPECIFIC GRAVITY URINE1.0101.005 - 1.025TBHPH URINE7.05.0 - 9.0TBHPROTEIN URINENEGATIVE NEG/TRACE mg/dLTBHGLUCOSE URINE UANEGATIVENEGATIVE mg/dLTBHBILIRUBIN URINE NEGATIVENEGATIVETBHKETONES URINENEGATIVENEGATIVE mg/dLTBHBLOOD URINENEGATIVE NEGATIVETBHNITRITE URINENEGATIVENEGATIVETBHUROBILINOGEN URINE0.20.2 - 1.0 EU/dLTBHLEUKOCYTE ESTERASE URINESMALL(A)NEGATIVETBHURINE MICROSCOPIC INDICATED YESTBHSpecimen (Source)Anatomical Location / LateralityCollection Method / VolumeCollection TimeReceived Time08/19/2025 12:18 PM EDT1 1:24 PM EDT Narrative [facility] - 08/19/2025 1:32 PM EDT Authorizing ProviderResult TypeResult StatusCorey Tulio DOCLINISYNCFinal Result Performing OrganizationAddressCity/State/ZIP CodePhone Number [place] TB * US OB follow up transabdominal approach [...] Location / LateralityCollection Method / VolumeCollection TimeReceived HoqgIhktu20/16/2025 3:21 PM EDT Narrative Authorizing ProviderResult TypeResult StatusMunira Yu [facility] CARE TEST ENTER/EDIT ORDERABLESFinal Result * (ABNORMAL) GLUCOSE 1 HOUR (07/25/2025 1:17 PM EDT)ComponentValueRef RangeTest MethodAnalysis TimePerformed AtPathologist SignatureGLUCOSE 1 EGVN110(H)<130 mg/dLTBHSpecimen (Source)Anatomical Location / LateralityCollection Method / VolumeCollection TimeReceived Time07/25/2025 1:17 PM EDT07/25/2025 1:19 PM EDT Narrative [facility] - 07/25/2025 1:47 PM EDT Authorizing ProviderResult TypeResult StatusCorey Tulio DOLAB BLOOD ORDERABLES Final ResultPerforming OrganizationAddressCity/State/ZIP CodePhone Number CLINISYKIM TB * (ABNORMAL) ALL CBC WITH AUTO DIFF (07/25/2025 1:17 PM EDT)ComponentValueRef RangeTest MethodAnalysis TimePerformed AtPathologist SignatureTBH WBC7.14.0 - 11.0 10 3/uLTBHTBH RBC3.97(L)4.20 - 5.40 10 6/uLTBHTBH HGB10.4(L)12.0 - 16.0 g/dLTBHTBH HCT32.0(L)36.0 - 48.0 %TBHTBH MCV80.6(L)81.0 - 99.0 fLTBHTBH MCH 26.2(L)26.7 - 34.0 pgTBHTBH MCHC32.529.9 - 35.2 g/dLTBHTBH RDW14.311.0 - 15.0 %TBHTBH DNB227641 - 450 10 3/uLTBHTBH MPV10.99.5 - 13.5 [...] DOCLINISYNCFinal Result Performing OrganizationAddressCity/State/ZIP CodePhone Number [place] H * URINARY TRACT INFECTION (HTRX) (07/13/2025 4:23 PM EDT)ComponentValueRef RangeTest MethodAnalysis TimePerformed AtPathologist SignatureACINETOBACTER NYERZKPC744.961 - 24.689 ppm07/15/2025 7:29 AM EDTHealthTrackRx at [facility] ACINETOBACTER BAUMANIINot Cokavodn05.961 - 24.689 ppm07/15/2025 7:29 AM EDT [facility] at LabPortCITROBACTER VPYMYLXL200.000 - 32.015 ppm07/15/2025 7:29 AM EDTHealthTrackRx at LabPortCITROBACTER FREUNDIINot Egsoxhxl57.000 - 32.015 ppm07/15/2025 7:29 AM EDTHealthTrackRx at LabPortENTEROBACTER AEROGENES, TDXMFHZ339.000 - 32.290 ppm07/15/2025 7:29 AM EDTHealthTrackRx at LabPortENTEROBACTER AEROGENES, CLOACAENot Djcarskw68.000 - 32.290 ppm 07/15/2025 7:29 AM EDTHealthTrackRx at LabPortENTEROCOCCUS FAECALIS, FAECIUM0 26.000 - 33.043 ppm07/15/2025 7:29 AM EDTHealthTrackRx at LabPortENTEROCOCCUS FAECALIS, FAECIUMNot Fgwbmexm58.000 - 33.043 ppm07/15/2025 7:29 AM EDT [facility] at LabPortESCHERICHIA LLYA680.000 - 28.500 ppm07/15/2025 7:29 AM EDTHealthTrackRx at LabPortESCHERICHIA COLINot Qmtpwtoh44.000 - 28.500 ppm 07/15/2025 7:29 AM EDTHealthTrackRx at LabPortKLEBSIELLA PNEUMONIAE, OXYTOCA0 23.000 - 31.865 ppm07/15/2025 7:29 AM EDTHealthTrackRx at LabPortKLEBSIELLA PNEUMONIAE, OXYTOCANot Rezhgewr71.000 - 31.865 ppm07/15/2025 7:29 AM EDT [facility] at LabPortMORGANELLA QLQNKKGC187.961 - 24.689 ppm07/15/2025 7:29 AM EDTHealthTrackRx at LabPortMORGANELLA MORGANIINot Coukxllt71.961 - 24.689 ppm07/15/2025 7:29 AM EDTHealthTrackRx at LabPortPROTEUS MIRABILIS, VULGARIS0 23.000 - 28.500 ppm07/15/2025 7:29 AM EDTHealthTrackRx at LabPortPROTEUS MIRABILIS, VULGARISNot Tvqwfjgg67.000 - 28.500 ppm07/15/2025 7:29 AM EDT [facility] at LabPortPSEUDOMONAS RFXQREMOHB090.000 - 31.801 ppm07/15/2025 7:29 AM EDTHealthTrackRx at LabPortPSEUDOMONAS AERUGINOSANot Tlmzjfoc84.000 - 31.801 ppm07/15/2025 7:29 AM EDTHealthTrackRx at LabPortSTAPHYLOCOCCUS AUREUS0 26.000 - 31.595 ppm07/15/2025 7:29 AM EDTHealthTrackRx at [facility] STAPHYLOCOCCUS AUREUSNot Mrkqojvt95.000 - 31.595 ppm07/15/2025 7:29 AM EDT [facility] at LabPortSTREPTOCOCCUS AGALACTIAE (GROUP B STREP)026.000 - 32.435 ppm07/15/2025 7:29 AM EDTHealthTrackRx at LabPortSTREPTOCOCCUS AGALACTIAE (GROUP B STREP)Not Sonoqjel22.000 - 32.435 ppm07/15/2025 7:29 AM EDTHealthTrackRx at LabPortCANDIDA ALBICANS, PARAPSILOSIS, GGADBAWBJQ576.000 - 30.347 ppm07/15/2025 7:29 AM EDTHealthTrackRx at LabPortCANDIDA ALBICANS, PARAPSILOSIS, TROPICALISNot Mygwceyq57.000 - 30.347 ppm07/15/2025 7:29 AM EDT [facility] LabPortCANDIDA GLEFKISP870.000 - 31.618 ppm07/15/2025 7:29 AM EDTHealthTrackRx at LabPortCANDIDA GLABRATANot Ngzifkdq56.000 - 31.618 ppm 07/15/2025 7:29 AM EDTHealthTrackRx at LabPortCANDIDA JMTQMW663.000 - 30.873 ppm07/15/2025 7:29 AM EDTHealthTrackRx at LabPortCANDIDA KRUSEINot Detected 23.000 - 30.873 ppm07/15/2025 7:29 AM EDTHealthTrackRx at LabPortSERRATIA YCAXLOFBEG239.000 - 31.581 ppm07/15/2025 7:29 AM EDTHealth[facility]Rx at [facility] SERRATIA MARCESCENSNot Ndnarvdw37.000 - 31.581 ppm07/15/2025 7:29 AM EDT [facility] at LabPortSTREPTOCOCCUS PYOGENES (GROUP A STREP)019.961 - 24.689 ppm07/15/2025 7:29 AM EDTHealthTrackRx at LabPortSTREPTOCOCCUS PYOGENES (GROUP A STREP)Not Jwtsbrri68.961 - 24.689 ppm07/15/2025 7:29 AM EDTHealthTrackRx at LabPortSTAPHYLOCOCCUS EPIDERMIDIS, HAEMOLYTICUS, LUGDUNENSIS, SAPROPHYTICUS (PBLZS293.961 - 24.689 ppm07/15/2025 7:29 AM EDTHealth[facility]Rx at [facility] STAPHYLOCOCCUS EPIDERMIDIS, HAEMOLYTICUS, LUGDUNENSIS, SAPROPHYTICUS (URINANot Ahctitzk99.961 - 24.689 ppm07/15/2025 7:29 AM EDTHealthTrackRx at [facility] STAPHYLOCOCCUS EPIDERMIDIS, HAEMOLYTICUS, LUGDUNENSIS, SAPROPHYTICUS (URINA0 19.961 - 24.689 ppm07/15/2025 7:29 AM EDTHealthTrackRx at [facility] STAPHYLOCOCCUS EPIDERMIDIS, HAEMOLYTICUS, LUGDUNENSIS, SAPROPHYTICUS (URINANot Olknnjqq16.961 - 24.689 ppm07/15/2025 7:29 AM EDTHealthTrackRx at [facility] Specimen (Source)Anatomical Location / LateralityCollection Method / Volume Collection TimeReceived FaumYwbyr13/17/2025 4:23 PM EDT07/15/2025 1:30 AM EDT Narrative Authorizing ProviderResult TypeResult StatusDarlene Olmstead NPLAB BLOOD ORDERABLESFinal ResultPerforming OrganizationAddressCity/State/ZIP CodePhone Number [facility] [address] [address] * OB 14+ weeks anatomy scan (05/31/2025 [...] Adolfo Camp MD Authorizing ProviderResult TypeResult StatusAmy Gigi [facility] US PROCEDURES Final Result from Last 3 Months Insurance Care Teams Team MemberRelationshipSpecialtyStart DateEnd Date Eliana Flanagan MD [address] [address] PCP - GeneralFamily Medicine03/04/23
--- OUTSIDE RECORDS SUMMARY | 2025-08-22 08:31 | XMS_ITS | Patient Health Record ---
Author Organization [facility] ([place], [place]) Servic es Address [address] [place] [address] Care Team Providers Care Certified Hyperbaric Technician Name Role Phone Bethany Wells Primary Care Provider Dr. Adolfo Reagan Unavailable [phone] Reason For Referral No Information Plan Of Treatment No Information Insurance Providers Payer Name Payer Address Payer Phone Subscriber Number Group Number Insured Name Patient Relationship to Insured Coverage Start Date Coverage End Date Dental [employer] [address] [address] [place] [address] [id number] JUNIOR TREJO DANETTE Self - patient is the insured 3 Dental W[employer] [facility] [address] [place] [phone] [id number], lf - patient is the [id number]/27/2022zAnthem BC Medicaid-termed 11/26/22[address] [place] [id number] AYALA, lf - patient is the [id number] DQ [place]-termed 11/26/22[address] [place] [phone] [id number], lf - patient is the insured [facility] after [place]-termed 11/26/22[address] [place] [id number], AUTUMNSelf - patient is the [id number] [place] DQ Terminated 10/26/24 [address] [place] [id number] AYALA, Roland - patient is the [id number] Wrap [facility] [place] BCBS Termed [address] [place] [phone] [id number], AUTUMNSelf - patient is the dznelzq7811/27/2022 09/25/2023
--- OUTSIDE RECORDS SUMMARY | 2025-08-22 08:35 | XMS_ITS | CCD ---
Author Organization [facility] CliniSywv Care Team Providers Care Detail Technician Name Role Phone BENITEZ, DR MUNOZ Primary [...] TypeDate of OnsetReaction(s) Facility (1 source)PenicillinsDrug allergy (disorder)[id number] [facility] Repository (20 sources)PenicillinsDrug Lxufpfx45-34-2961QweaabsTRFL Healthcare Medications Current Medications MedicationDrug Class(es)DatesSig (Normalized)Sig (Original)[id number] 200 actuat albuterol 0.09 mg/actuat metered dose inhaler (9 sources)beta2-Adrenergic Agonist End: 00-19-0621rvuh 2 puff(s) by inhalation every four hours for wheezing albuterol HFA (ProAir HFA) 90 mcg/act inhaler Inhale 2 puffs every 4 (four) hours if needed for wheezing or shortness of breath 04/05/2025 Discontinued (Other)diphenhydrAMINE hydrochloride 50 mg oral tablet (12 sources)Histamine-1 Receptor AntagonistdiphenhydrAMINE (BENADryl) 50 MG tablet Take 50 mg by mouth as needed at bedtime for itching Activefexofenadine hydrochloride 180 mg oral tablet (9 sources)Histamine-1 Receptor Antagonist End: 00-58-0365coit 1 tablet by mouth once dailyfexofenadine ([facility] Allergy Relief) 180 MG tablet Take 180 mg by mouth Daily 04/05/2025 Discontinued (Other) magnesium oxide 400 mg oral tablet (5 sources)Start: 03-10-2025 End: 47-90-3433yroi 1 tablet by mouth once dailymagnesium oxide (Mag-Ox) 400 MG tablet Indications: headache in first trimester Take 1 tablet (400 mg) by mouth Daily 30 tablet 11 03/10/2025 04/05/2025 Discontinued (Other) nitrofurantoin, macrocrystals 25 mg / nitrofurantoin, monohydrate 75 mg oral capsule (5 sources)Nitrofuran AntibacterialStart: 07-13-2025 End: 39-27-3663pbzk 1 capsule by mouth in the morningnitrofurantoin, macrocrystal-monohydrate, (Macrobid) 100 MG capsule Indications: Cystitis Take 1 capsule (100 mg) by mouth in the morning and 1 capsule (100 mg) before bedtime. Do all this for 7 days. 14 capsule 07/13/2025 07/20/2025 ActiveStart: 04-06-2025 End: 33-17-2410harm 1 capsule by mouth in the morningnitrofurantoin, macrocrystal-monohydrate, (Macrobid) 100 MG capsule Indications: Urinary tract infection without hematuria, site unspecified Take 1 capsule (100 mg) by mouth in the morning and 1 capsule (100 mg) before bedtime. Do all this for 7 days. 14 capsule 04/06/2025 04/13/2025 ActiveStart: 03-10-2025 End: 85-67-2431mwkv 1 capsule by mouth in the morningnitrofurantoin, macrocrystal-monohydrate, (Macrobid) 100 MG capsule Indications: UTI symptoms Take 1 capsule (100 mg) by mouth in the morning and 1 capsule (100 mg) before bedtime. Do all this for 7 days. 14 capsule 03/10/2025 03/17/2025 Active omeprazole 20 mg delayed release oral capsule (9 sources)Proton Pump InhibitorStart: 07-13-2025 End: 87-64-0140zwrv 1 capsule by mouth before mealtimeomeprazole (PriLOSEC) [address] capsule Indications: Gastroesophageal Reflux Disease , Heartburn Take 1 capsule (20 mg) by mouth in the morning. Take before meals. Do not crush or chew. 30 capsule 3 07/13/2025 Activeondansetron 4 mg disintegrating oral tablet (8 sources)Serotonin-3 Receptor AntagonistStart: 03-10-2025 End: 13-86-4519tetg 1 tablet by mouth every six hours for nauseaondansetron ODT (Zofran-ODT) 4 MG disintegrating tablet Indications: Nausea and vomiting in Take 1 tablet (4 mg) by mouth every 6 (six) hours if needed for nausea or vomiting 30 tablet 2 03/10/2025 04/09/2025 Activepolysaccharide iron complex 391 mg oral capsule (7 sources)Start: 07-27-2025 End: 12-44-9642yvqq 1 capsule by mouth once dailyiron polysaccharides (ProFe) 391.3 (180 Fe) MG capsule Indications: Anemia, unspecified type Take 1capsule (391.3 mg) by mouth Daily 30 capsule 6 07/27/2025 08/26/2025 ActiveStart: 04-06-2025 End: 29-51-4767pafd 1 capsule by mouth once dailyiron polysaccharides (ProFe) 391.3 (180 Fe) MG capsule Indications: Other iron deficiency anemia Take 1 capsule (391.3 mg) by mouth Daily 30 capsule 6 04/06/2025 05/06/2025 Active MV-Min-Fe Fum-FA-DHA ( 1 PO) (12 sources) MV-Min-Fe Fum-FA-DHA ( 1 PO) Take 1 tablet by mouth Daily Active Completed/Discontinued Medications MedicationDrug Class(es)DatesSig (Normalized)Sig (Original)FLUoxetine 10 mg oral capsule (5 sources)Serotonin Reuptake InhibitorStart: 11-18-2022 End: 64-97-9371ouys 1 capsule by mouth once dailyFLUoxetine (PROzac) 10 MG capsule Take 1 capsule by mouth 1 (one) time each day at the same time 03/10/2025 Discontinued (Other)fluticasone propionate 0.05 mg/actuat metered dose nasal spray (5 sources)Corticosteroid End: 07-61-0796awhv 1 spray(s) nasal route once dailyfluticasone (Flonase) 50 MCG/ACT nasal spray Administer 1 spray into each nostril 1 (one) time eachday at the same time 03/10/2025 Discontinued (Other)24 hr metFORMIN hydrochloride 500 mg extended release oral tablet (5 sources)BiguanideStart: 06-07-2024 End: 91-05-0153ppxj 1 tablet by mouth every twenty-four hours at mealtime metFORMIN XR (Glucophage-XR) 500 MG 24 hr tablet Indications: PCOS (polycystic ovarian syndrome) Take 1 tablet (500 mg) by mouth in the evening. Take with meals Do not crush, chew, or split. 30 tablet 11 06/07/2024 03/10/2025 Discontinued (Other) Problems Problem ClassificationProblemDateDocumented DateEpisodic/ChronicAbdominal pain (10 sources)Pelvic and perineal pain; Translations: [Unspecified abdominal pain] Onset: 17-20-3915JjmctrcaStwrgg (20 sources)Exercise-induced asthma; Translations: [Exercise induced bronchospasm]Onset: 927614-36-3868MratjriRgqajovquc and other anemia (2 sources)Iron deficiency anemia; Translations: [Other iron deficiency anemias] 17-19-0345WihugesgYgvicjssvf and other anemia (2 sources)Anemia; Translations: [Anemia, unspecified]87-01-8402GmrksqqgMxyxlfip mellitus without complication (2 sources)Abnormal glucose tolerance test; Translations: [Other abnormal glucose]08-50-8393JwonlqswXtoyanytj of teeth and jaw (2 sources)Jaw pain; Translations: [Jaw pain]62-50-2913DpykhtknXvnxvcooleqmw congenital anomalies (1 source)Bicornate uterus; 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]Onset: 10-18-2021 ChronicGenitourinary symptoms and ill-defined conditions (1 source)Urinary symptoms ; Translations: [Unspecified symptoms and signs involving the genitourinary system]28-13-2309UopiebyjVxjeuhpzvqfxv and screening for infectious disease (2 sources)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; Translations: [Contact with and (suspected) exposure to infections with a predominantly sexual mode of transmission]47-33-9997XsfovbzgAqrfe disorders and dislocations; trauma-related (20 sources)Patellofemoral syndrome of right knee; Translations: [Patellofemoral disorders, right knee]Onset: 756788-27-0127QvsvbtsYgcxdkesd disorders (1 source)Missed period; Translations: [Irregular menstruation, unspecified] 42-47-7183ZjqtpjkEzqb disorders (20 sources)Severe major depression, single episode, without psychotic features; Translations: [Major depressive disorder, single episode, severe without psychotic features]Onset: 432978-40-8252StamtazLqbsc complications of (1 source)Vomiting of , unspecified; Translations: [Unspecified vomiting of , unspecified as to episode of care or not applicable] 64-57-6062CskyzfxgTcwct complications of (1 source)Headache; Translations: [Other specified related conditions, first trimester]70-18-2749FopsdorpFvxve complications of (2 sources)Gastroesophageal reflux disease in ; Translations: [Diseases of the digestive system complicating , unspecified trimester] 91-65-6994GwpwsgpoWnels complications of (3 sources) size does not accord with dates; Translations: [Uterine size- date discrepancy, unspecified trimester]Onset: 880825-94-1224JxjegwccNexvv ear and sense organ disorders (2 sources)Bilateral earache; Translations: [Otalgia, bilateral]04-05-2025 EpisodicOther endocrine disorders (20 sources)Polycystic ovary syndrome; Translations: [Polycystic ovarian syndrome]Onset: 183377-08-5905AbvixznQuwmb endocrine disorders (2 sources)Disorder of endocrine system; Translations: [Endocrine disorder, unspecified]78-77-2908AzdhxnjpDentc female genital disorders (2 sources)Pain in female genitalia on intercourse; Translations: [Unspecified dyspareunia]42-80-4430BvzmywjIzlug female genital disorders (2 sources)Vaginal discharge; Translations: [Other specified noninflammatory disorders of vagina]20-50-5421EgenojmzAowtq and delivery including normal (14 sources); Translations: [Encounter for supervision of normal , unspecified, unspecified trimester]96-32-1739GmezthobOxspl screening for suspected conditions (not mental disorders or infectious disease) (4 sources)Patient encounter status; Translations: [Encounter for other specified screening]60-31-7983IchtmoknCywnevh cyst (5 sources)Unspecified ovarian cyst, left side; Translations: [UNSPECIFIED OVARIAN CYST LEFT SIDE]Onset: 99-49-6712RmiwjobwRlqmkyfy codes; unclassified (2 sources)Gestation period, 12 weeks; Translations: [12 weeks gestation of ]39-14-6645FeagysazMwcemodv codes; unclassified (2 sources)Gestation period, 18 weeks; Translations: [18 weeks gestation of ]15-49-8631MgsdollyTsrwukbg codes; unclassified (2 sources)Gestation period, 22 weeks; Translations: [22 weeks gestation of ]98-68-4540BbhrzofmMbfygwvu codes; unclassified (2 sources)Gestation period, 26 weeks; Translations: [26 weeks gestation of ]44-91-4936WtvmpohnKjdbmptg codes; unclassified (2 sources)Gestation period, 28 weeks; Translations: [28 weeks gestation of ]79-54-3786OeurvhrmVukfcyoj codes; unclassified (2 sources)Gestation period, 30 weeks; Translations: [30 weeks gestation of ]04-22-7917DhtzopnyMpkhudm tract infections (4 sources)Urinary tract infectious disease; Translations: [Urinary tract infection, site not specified]88-55-5475Djtpkomc Results Test NameValueInterpretationReference RangeFacilityTBH UA (CLEAN/CATCH) WIRE WEAVER CLOTH/MICRO IF IND.on 14-85-4382UJQZQNQWU URINENegativeNEGATIVENOMS Healthcare BLOOD URINENegativeNEGATIVENOTX HealthcareClarity (U)CLEARCLEARNOTX Healthcare Color (U)LT. YELLOWYELLOWNOMS HealthcareGLUCOSE URINE UANegativeNEGATIVE mg/dL NOMS HealthcareInterpretation and review of laboratory resultsAbnormalNOMS HealthcareKetones Ql (U)NegativeNEGATIVE mg/dLNOTX HealthcareLeukocyte esterase Test strip Ql (U)SMALLAbnormalNEGATIVENOMS HealthcareNITRITE URINENegative NEGATIVENOTX HealthcarepH (U)7.0 [pH]5.0 - 9.0NOMS HealthcarePROTEIN URINE NegativeNEG/TRACE mg/dLNOTX HealthcareSPECIFIC GRAVITY URINE1.0101.005 - 1.025 NOMS HealthcareURINE MICROSCOPIC INDICATEDYESNOTX HealthcareUROBILINOGEN URINE 0.2 EU/dL0.2 - 1.0 EU/dLNOTX HealthcareCLINISYNCNOMS HealthcareUS OB FOLLOW UP TRANSABDOMINAL APPROACHon 13-17-8899BH OB FOLLOW UP TRANSABDOMINAL APPROACH FINDINGS: Comparison [...] Delivery: 10/14/25 Gestational Age as of 07/13/2025: 70i9eLbkxedmxnh macro (dipstick) panel (U)on 14-87-6158Fkwcabcrx, UANegativeNegative - 4(70) +++ mg/dLNOMS HealthcareBlood, UANegativeNegative [...] UA1.0151 - 1.03NOMS HealthcareUrobilinogen, UA0.20.2 - 12 mg/dLNOMS HealthcareNOMS HealthcareUrinalysis macro (dipstick) panel (U)on 08-83-0651Tikyyumpw, UA NegativeNegative - 4(70) +++ mg/dLNOMS HealthcareBlood, UANegativeNegative - 50 Tarun/mcLNOMS HealthcareClarity, UAClearNOMS HealthcareColor, UAYellowNOMS HealthcareGlucose, UANegativeNegative - 2000(110) ++++ mg/dLNOMS Healthcare Interpretation and review of laboratory resultsNormalNOMS HealthcareKetones, UA NegativeNegative - 160(16) ++++ mg/dLNOMS HealthcareLeukocytes, UANegative Negative - 500+++ Joelle/mcLNOMS HealthcareNitrite, UANegativeNegative - Positive NOMS HealthcarepH, UA75 - 9NOMS HealthcareProtein, UANegativeNegative - 2000(20) ++++ mg/dLNOMS HealthcareSpec Grav, UA1.0051 - 1.03NOMS HealthcareUrobilinogen, UA2.00.2 - 12 mg/dLNOMS HealthcareNOMS HealthcareALL CBC WITH AUTO DIFFon 26-23-7822SNVYCTQZL ABSOLUTE BBAZ1WFTHUniversity Health Lakewood Medical CenterBasophils/100 WBC (Bld)0.3 %0.2 - 2.0 %[facility] CenterEosinophils/100 WBC (Bld)1.3 %0.9 - 7.0 %[facility] Erythrocyte distribution width (RBC) [Ratio]14.3 %11.0 - 15.0 %[facility] Hematocrit (Bld) [Volume fraction]32 %Low36.0 - 48.0 %[facility] CenterHemoglobin (Bld) [Mass/Vol]10.4 g/dLLow12.0 - 16.0 g/dLUniversity Health Lakewood Medical CenterIMMATURE GRANULOCYTES ABS AUTO0.03[facility] CenterImmature granulocytes/100 WBC (Bld)0.4 %0.0 - 0.5 % [facility] CenterInterpretation and review of laboratory resultsAbnormalUniversity Health Lakewood Medical CenterLYMPHOCYTES ABSOLUTE VIIG3BhzNJRUSaint Mary's Hospital of Blue SpringsLymphocytes/100 WBC (Bld) 14 %Low20.5 - 60.0 %[facility] HospitalH (RBC) [Entitic mass]26.2 pgLow26.7 - 34.0 pgUniversity Health Lakewood Medical CenterMCHC (RBC) [Mass/Vol]32.5 g/dL29.9 - 35.2 g/dLUniversity Health Lakewood [facility] Center MCV (RBC) [Entitic vol]80.6 fLLow81.0 - 99.0 fLUniversity Health Lakewood Medical CenterMONOCYTES ABSOLUTE AUTO0.3[facility] CenterMonocytes/100 WBC (Bld)4 %1.7 - 12.0 %[facility] NEUTROPHILS ABSOLUTE AUTO5.7[facility] CenterNeutrophils/100 WBC (Bld)80 %High43.0 - 75.0 %[facility] Medical CenterPlatelet mean volume (Bld) [Entitic vol]10.9 fL9.5 - 13.5 fLUniversity Health Lakewood Medical CenterTB EO #0.1NOMS [facility] CenterTB [id number] Monett RBC3.97 LowLiberty Hospital WBC7.1NOMS [facility] CenterCLINISYNCNSaint Mary's Hospital of Blue SpringsUrinalysis macro (dipstick) panel (U)on 80-03-4648Vlmhyvhmy, UANegativeNegative - 4(70) +++ mg/dLNOMS HealthcareBlood, UANegativeNegative - 50 Tarun/mcLNOMS Healthcare Clarity, UAClearNOMS HealthcareColor, UAAmberNOMS HealthcareGlucose, UANegative Negative - 1999(110) ++++ mg/dLNOTX HealthcareInterpretation and review of laboratory resultsAbnoWadsworth-Rittman Hospital HealthcareKetones, UANegativeNegative - 160(16) ++++ mg/dLNOMS HealthcareLeukocytes, UAPositiveNegative - 500+++ Joelle/mcLNOTX HealthcareNitrite, UAPositiveNegative - PositiveNOMS HealthcarepH, UA6.55 - 9 NOMS HealthcareProtein, UAPositiveNegative - 1999(20) ++++ mg/dLNOMS Healthcare Spec Grav, UA1.0151 - 1.03NOTX HealthcareUrobilinogen, UA1.00.2 - 12 mg/dLNOCenterpoint Medical CenterNOTX HealthcareUrinalysis macro (dipstick) panel (U)on 06-15-2025 Bilirubin, UANegativeNegative - 4(70) +++ mg/dLNOMS HealthcareBlood, UANegative Negative - 50 Tarun/mcLNOMS HealthcareClarity, UAClearNOMS HealthcareColor, UA YellowNOMS HealthcareGlucose, UANegativeNegative - 1999(110) ++++ mg/dLNOTX HealthcareInterpretation and review of laboratory resultsNormMercy Health [facility] Healthcare Ketones, UANegativeNegative - 160(16) ++++ mg/dLNOMS HealthcareLeukocytes, UA NegativeNegative - 500+++ Joelle/[facility] HealthcareNitrite, UANegativeNegative - PositiveNOMS HealthcarepH, UA65 - 9NOMS HealthcareProtein, UANegativeNegative - 2000(20) ++++ mg/dLNOMS HealthcareSpec Grav, UA1.0151 - 1.03NOTX Healthcare Urobilinogen, UA1.00.2 - 12 mg/dLNOCenterpoint Medical CenterNOTX HealthcareRECURRENT VAGINITIS (HTRX)on 52-99-2209RASRATOYA HOFWQFB0TIZK HealthcareATOPOBIUM VAGINAE Not detectedNOTX HealthcareBVAB 2,3 (BACTERIAL VAGINOSIS ASSOCIATED BACTERIA 2, 3); MOBILUNCUS SPP22.558AbnormalPRIMARY CHILDREN'S [facility] HealthcareBVAB 2,3 (BACTERIAL VAGINOSIS ASSOCIATED BACTERIA 2, 3); MOBILUNCUS SPPDetectedAbnormalNOMS HealthcareCANDIDA ALBICANS, PARAPSILOSIS, [id number] HealthcareCANDIDA ALBICANS, PARAPSILOSIS, TROPICALISNot detectedNOMS HealthcareCANDIDA [id number] HealthcareCANDIDA GLABRATANot detectedNOMS HealthcareCANDIDA [id number] HealthcareCANDIDA KRUSEINot detectedNOMS HealthcareCHLAMYDIA VXWBQMQZCGX2TRRK HealthcareCHLAMYDIA TRACHOMATISNot detectedNOMS HealthcareERMB, C; MEFA25.177 AbnormalNOMS HealthcareERMB, C; MEFADetectedAbnormalNOMS HealthcareGARDNERELLA ORTHJFKAH82.544AbnormalNOMS HealthcareGARDNERELLA VAGINALISDetectedAbnormalNOMS HealthcareInterpretation and review of laboratory resultsAbnormalNOMS Healthcare MEGASPHAERA (TYPES 1, 2)0NOMS HealthcareMEGASPHAERA (TYPES 1, 2)Not detectedNOMS HealthcareMYCOPLASMA [id number] HealthcareMYCOPLASMA GENITALIUMNot detected NOMS HealthcareNEISSERIA [id number] HealthcareNEISSERIA GONORRHOEAENot detectedNOMS HealthcareTET B, TET M21.747AbnormalNOMS HealthcareTET B, TET M DetectedAbnormalNOMS HealthcareTRICHOMONAS [id number] HealthcareTRICHOMONAS VAGINALISNot detectedNOMS HealthcareNOMS HealthcareUS OB 14+ WEEKS ANATOMY SCAN on 83-41-5462RB OB 14+ WEEKS ANATOMY SCANFINDINGS: A single, [...] Delivery: 10/14/25 Gestational Age as of 05/18/2025: 27s6eQotinekjso macro (dipstick) panel (U)on 37-92-4534Dfixlrtmr, UANegativeNegative - 4(70) +++ mg/dLNOMS HealthcareBlood, UANegativeNegative - 50 Tarun/mcLNOMS HealthcareClarity, UAClearNOMS Healthcare Color, UAYellowNOMS HealthcareGlucose, UANegativeNegative - 2000(110) ++++ mg/dL NOMS HealthcareInterpretation and review of laboratory resultsAbnormalNOMS HealthcareKetones, UANegativeNegative - 160(16) ++++ mg/dLNOMS Healthcare Leukocytes, UANegativeNegative - 500+++ Joelle/mcLNOMS HealthcareNitrite, UA NegativeNegative - PositiveNOMS HealthcarepH, UA6.55 - 9NOMS HealthcareProtein, UATraceNegative - 2000(20) ++++ mg/dLNOMS HealthcareSpec Grav, UA1.011 - 1.03 NOMS HealthcareUrobilinogen, UA0.20.2 - 12 mg/dLNOMS HealthcareNOMS Healthcare Urinalysis macro (dipstick) panel (U)on 74-28-0191Beirodywy, UANegativeNegative - 4(70) +++ mg/dLNOMS HealthcareBlood, UAPositiveNegative - 50 Tarun/mcLNOMS HealthcareComment on above:traceClarity, UACloudyNOMS HealthcareColor, UAYellow NOMS HealthcareGlucose, UANegativeNegative - 2000(110) ++++ mg/dLNOMS Healthcare Interpretation and review of laboratory resultsAbnormalNOMS HealthcareKetones, UANegativeNegative - 160(16) ++++ mg/dLNOMS HealthcareLeukocytes, UATrace Negative - 500+++ Joelle/mcLNOMS HealthcareNitrite, UAPositiveNegative - Positive NOMS HealthcareComment on above:positivepH, UA7.55 - 9NOTX HealthcareProtein, UA NegativeNegative - 1999(20) ++++ mg/dLNOTX HealthcareSpec Grav, UA1.021 - 1.03 NOMS HealthcareUrobilinogen, UA0.20.2 - 12 mg/dLNOHeartland Behavioral Health Services Healthcare ALL CBC WITH AUTO DIFFon 63-05-2045DYELDMPJL ABSOLUTE AXFI0FJDI Healthcare Basophils/100 WBC (Bld)0.5 %0.2 - 2.0 %NOMS HealthcareEosinophils/100 WBC (Bld) 2.5 %0.9 - 7.0 %[facility] CenterErythrocyte distribution width (RBC) [Ratio]17.3 %High11.0 - 15.0 %[facility] HealthcareHematocrit (Bld) [Volume fraction]32.1 %Low36.0 - 48.0 %[facility] CenterHemoglobin (Bld) [Mass/Vol]10.4 g/dLLow12.0 - 16.0 g/dL [facility] CenterIMMATURE GRANULOCYTES ABS AUTO0.01NOCenterpoint Medical CenterImmature granulocytes/100 WBC (Bld)0.1 %0.0 - 0.5 %[facility] HealthcareInterpretation and review of laboratory resultsAbnormalNOCenterpoint Medical CenterLYMPHOCYTES ABSOLUTE AUTO1.1 LowNOCenterpoint Medical CenterLymphocytes/100 WBC (Bld)14.4 %Low20.5 - 60.0 %[facility] MCH (RBC) [Entitic mass]23.8 pgLow26.7 - 34.0 pgNOExcelsior Springs Medical CenterHC (RBC) [Mass/Vol]32.4 g/dL29.9 - 35.2 g/dLUniversity Health Lakewood Medical CenterMCV (RBC) [Entitic vol]73.5 fL Low81.0 - 99.0 fLUniversity Health Lakewood Medical CenterMONOCYTES ABSOLUTE AUTO0.5NOCenterpoint Medical Center Monocytes/100 WBC (Bld)7.1 %1.7 - 12.0 %NOMFulton Medical Center- FultonNEUTROPHILS ABSOLUTE AUTO 5.5NOMS HealthcareNeutrophils/100 WBC (Bld)75.4 %High43.0 - 75.0 %[facility] CenterPlatelet mean volume (Bld) [Entitic vol]11.1 fL9.5 - 13.5 fLNOCenterpoint Medical CenterTBH EO #0.2NOMS HealthcareTBH FPS486BSEY [facility] RBC4.37NOMS [facility] WBC7.3NOMS HealthcareCLINISYNCNOMS HealthcareUS OB TRANSVAGINALon 30-23-9687SG OB TRANSVAGINALEXAM: US OB TRANSVAGINAL HISTORY: Dating. [...] II, MD, PHD at 11-Mar-2025 10:13:58 AM [facility]eleradiologyNormalNot AvailableComment on above:Order Comment: US OB TRANSVAGINAL No LMP recorded.ALL CBC WITH AUTO DIFFon 61-41-9193PUHWCUNAF ABSOLUTE AUTO0.0 NOMS HealthcareBasophils/100 WBC (Bld)0.7 %0.2 - 2.0 %[facility] Eosinophils/100 WBC (Bld)2.3 %0.9 - 7.0 %NOMS HealthcareErythrocyte distribution width (RBC) [Ratio]15.6 %High11.0 - 15.0 %NOMS HealthcareHematocrit (Bld) [Volume fraction]34.8 %Low36.0 - 48.0 %[facility] CenterHemoglobin (Bld) [Mass/Vol]10.9 g/dLLow12.0 - 16.0 g/dLUniversity Health Lakewood Medical CenterIMMATURE GRANULOCYTES ABS AUTO0.01NOCenterpoint Medical CenterImmature granulocytes/100 WBC (Bld)0.2 %0.0 - 0.5 %[facility] CenterInterpretation and review of laboratory resultsAbnormalUniversity Health [facility] Center LYMPHOCYTES ABSOLUTE AUTO1.4NOCenterpoint Medical CenterLymphocytes/100 WBC (Bld)23.6 %20.5 - 60.0 %[facility] HospitalH (RBC) [Entitic mass]23.2 pgLow26.7 - 34.0 pgHawthorn Children's Psychiatric HospitalHC (RBC) [Mass/Vol]31.3 g/dL29.9 - 35.2 g/dLHawthorn Children's Psychiatric HospitalV (RBC) [Entitic vol]74.0 fLLow81.0 - 99.0 fLUniversity Health Lakewood Medical CenterMONOCYTES ABSOLUTE AUTO0.5 [facility] CenterMonocytes/100 WBC (Bld)7.8 %1.7 - 12.0 %[facility] NEUTROPHILS ABSOLUTE AUTO4.0[facility] CenterNeutrophils/100 WBC (Bld)65.4 %43.0 - 75.0 %[facility] CenterPlatelet mean volume (Bld) [Entitic vol]10.3 fL9.5 - 13.5 fLUniversity Health Lakewood Medical CenterTB EO #0.1NOMS [facility] BMT000HDMP [facility] RBC4.70 [facility] WBC6.1NOMS [facility] CenterCLINISYNCNSaint Mary's Hospital of Blue SpringsUS PELVIS AND TRANSVAGon 51-16-3450GX PELVIS AND TRANSVAGEXAMINATION: US PELVIS AND TRANSVAG [...] Electronically authenticated by: KIAN MONREAL Date: 2022-01-02 14:40NoBrecksville VA / Crille HospitalUS PELVIS AND TRANSVAGon [id number] PELVIS AND TRANSVAG EXAMINATION: US PELVIS AND [...] Electronically authenticated by: MELVIN ALONSO Date: 2021-10-12 15:53NoBrecksville VA / Crille HospitalCB AUTO DIFFon 99-67-7322NRBK #0.0 103/ulNormal0.0-0.1Clinton Memorial HospitalComment on above:Performed By: #### CBC #### [facility] [address] [place], [place] [address] Cain KarenBasophils/100 WBC (Bld)0.3 %Normal0.2-2.0The [facility] Comment on above:Performed By: #### CBC #### [facility] [address] [place] [address] Cain KarenEO #0.0 103/ulNormal0.0-0.7The [facility] TownshipComment on above: Performed By: #### CBC #### [facility] [address] [place] [address] Cain KarenEosinophils/100 WBC (Bld)0.3 %Critically low0.9-7.0The [facility] TownshipComment on above:Performed By: #### CBC #### [facility] [address] [place] [address] Cain KarenErythrocyte distribution width (RBC) [Ratio]14.3 %Qfxfrk05.0-15.0The [facility] TownshipComment on above:Performed By: #### CBC #### [facility] [address] [place] [address] Cain KarenHematocrit (Bld) [Volume fraction]34.1 %Critically low36.0-48.0The [facility] TownshipComment on above:Performed By: #### CBC #### [facility] [address] [place] [address] Cain KarenHemoglobin (Bld) [Mass/Vol]11.1 g/dLCritically low12.0-16.0The [facility] TownshipComment on above:Performed By: #### CBC #### [facility] [address] [place] [address] Cain KarenIG #0.02 10e3/ulNormal0.00-0.03The [facility] TownshipComhuron valley[facility] on above:Performed By: #### CBC #### [facility] [facility] [address] [place] [address] Cain KarenIG %0.2 %Normal0.0-0.5The [facility] TownshipComment on above: Performed By: #### CBC #### [facility] [address] [place] [address] Cain KarenLYMPH #0.9 103/ulCritically low1.2-3.8The [facility] TownshipComment on above:Performed By: #### CBC #### [facility] [address] [place] [address] Cain KarenLymphocytes/100 WBC (Bld)9.3 %Critically low20.5-60.0The [facility] TownshipComment on above:Performed By: #### CBC #### [facility] [address] [place] [address] Cain KarenMANUAL DIFF REQNONormalThe [facility] TownshipComment on above: Performed By: #### CBC #### [facility] [address] [place] [address] Cain KarenMCH (RBC) [Entitic mass]25.6 pgCritically low26.7-34.0The [facility] TownshipComment on above:Performed By: #### CBC #### [facility] [address] [place] [address] Cain KarenMCHC (RBC) [Mass/Vol]32.6 g/jHNyyynu45.9-35.2The [facility] Comment on above:Performed By: #### CBC #### [facility] [address] [place] [address] Cain KarenMCV (RBC) [Entitic vol]78.8 fLCritically low79.1-95.6The [facility] TownshipComment on above:Performed By: #### CBC #### [facility] [address] [place] [address] Cain KarenMONO #0.6 103/ulNormal0.3-0.8The [facility] TownshipComment on above: Performed By: #### CBC #### [facility] [address] [place] [address] Cain KarenMonocytes/100 WBC (Bld)6.3 %Normal1.7-12.0The [facility] Comment on above:Performed By: #### CBC #### [facility] [address] [place] [address] Cain KarenNEUT #8.0 103/ulCritically high1.4-6.5The [facility] TownshipComment on above:Performed By: #### CBC #### [facility] [address] [place] [address] Cain KarenNeutrophils/100 WBC (Bld)83.6 %Critically high43.0-75.0The [facility] on above:Performed By: #### CBC #### [facility] [address] [place] [address] Cain KarenPlatelet mean volume (Bld) [Entitic vol]11.0 fLNormal9.5-13.5The [facility] TownshipComment on above:Performed By: #### CBC #### [facility] [address] [place] [address] Cain ZqznnACW137 103/rmMiqfpu550-399Aci [facility] on above: Performed By: #### CBC #### [facility] [address] [place] [address] Cain KarenRBC4.33 106/ulNormal3.40-5.30The [facility] on above: Performed By: #### CBC #### [facility] [address] [place] [address] Cain KarenWBC9.6 103/ulNormal4.0-11.0The [facility] on above: Performed By: #### CBC #### [facility] [address] [place] [address] Cain KarenCT ABD/PELV W CONon 87-60-7477LZ ABD/PELV W CONCLINICAL HISTORY: ABDOMINAL DISTENSION (GASEOUS). [...] Electronically authenticated by: HARSHA AGUILAR Date: 2021-05-05 14:12[facility] URINE PROFILEon 62-46-7651Ebnxzpqva Ql (U)NegativeNormal NEGATIVEThe [facility] TownshipComment on above:Performed By: #### ERUR, PREGU #### [facility] [address] [place] [address] Cain KarenClarity (U)CLEARNormalCLEARClinton Memorial HospitalComment on above: Performed By: #### ERUR, PREGU #### [facility] [address] [place] [address] Cain KarenColor (U)LT. YELLOWNormalYELLOWThe [facility] TownshipComment on above:Performed By: #### ERUR, PREGU #### [facility] [address] [place] [address] Cain KarenERUAHDA micrscopic examination will be performed if indicated.Normal The [facility] TownshipComment on above:Performed By: #### ERUR, PREGU #### [facility] [address] [place] [address] Cain KarenGlucose Ql (U)NegativeNormalNEGATIVEThe [facility] TownshipComment on above:Performed By: #### ERUR, PREGU #### [facility] [address] [place] [address] Cain KarenHemoglobin Ql (U)NegativeNormalNEGATIVEThe [facility] HospitalComment on above:Performed By: #### KIERANR, PREGU #### [facility] [address] [place] [address] Cain KarenKetones Ql (U)NegativeNormalNEGATIVEThe [facility] HospitalComment on above:Performed By: #### KIERANR, PREGU #### [facility] [address] [place] [address] Cain KarenLEUKOCYTESNegativeNormalNEGATIVESelect Medical Specialty Hospital - [facility] North HospitalComment on above:Performed By: #### KIERANR, PREGU #### [facility] [address] [place] [address] Cain KarenNitrite Ql (U)NegativeNormalNEGATIVESelect Medical Specialty Hospital - [facility] North HospitalComment on above:Performed By: #### KIERANR, PREGU #### [facility] [address] [place] [address] Cain KarenpH (U)6.5 [pH]Normal5-9The [facility] TownshipComment on above: Performed By: #### BE, PREGU #### [facility] [address] [place] [address] Cain KarenSPEC GRAVITY1.357Xqzipc2.005-<=1.025The [facility] TownshipComment on above:Performed By: #### KIERANR, PREGU #### [facility] [address] [place] [address] Cain KarenUA PROTEINNegativeNormalNEGATIVE/ TRACEThe [facility] HospitalComment on above:Performed By: #### KIERANR, PREGU #### [facility] [address] [place] [address] Cain KarenUR MICRO INDNOT INDICATEDNormalThe [facility] TownshipComment on above:Performed By: #### KIERANR, PREGU #### [facility] [address] [place] [address] Cain KarenUrobilinogen Qn (U)0.2 {Dagoberto'U}/dLNormal0.2 - 1.0The [facility] TownshipComment on above:Performed By: #### BE PREGU #### [facility] [address] [place] [address] Cain KarenLIPASEon 70-95-2883Yohhyq [Catalytic activity/Vol]53.0 U/LNormal 23.0-300.0The [facility] TownshipComment on above:Performed By: #### CMP, LIPA #### [facility] [address] [place] [address] Cain KarenPREGNANCY URon 17-61-7468OGIVZYMPL, QUALNegativeNormalNEGATIVEThe [facility] TownshipComment on above:Performed By: #### BE PREGU #### [facility] [address] [place] [address] Cain KarenPROF 14(COMP METB)on 67-08-1225Vuzccht [Mass/Vol]3.7 g/dLNormal 3.5-5.0The [facility] TownshipComment on above:Performed By: #### CMP, LIPA #### [facility] [address] [place] [address] Cain KarenAlbumin/Globulin [Mass ratio]1.2 {ratio}NormalClinton Memorial Hospital Comment on above:Performed By: #### CMP, LIPA #### [facility] [address] [place] [address] Cain KarenALP [Catalytic activity/Vol]86 U/MEgcmjq22-449Plz [facility] Comment on above:Performed By: #### CMP, LIPA #### [facility] [address] [place] [address] Cain KarenALT [Catalytic activity/Vol]22 U/LNormal9-52[facility] Comment on above:Performed By: #### CMP, LIPA #### [facility] [address] [place] [address] Cain KarenAnion gap [Moles/Vol]11.6 mmol/LNormalThe [facility] TownshipComment on above:Performed By: #### CMP, LIPA #### [facility] [address] [address] Cain KarenAST [Catalytic activity/Vol]15 U/IGasdrj82-22EaaClinton Memorial Hospital Comment on above:Performed By: #### CMP, LIPA #### [facility] [address] [address] Cain KarenBilirubin [Mass/Vol]0.5 mg/dLNormal0.2-1.3TUniversity [facility]als [facility] Comment on above:Performed By: #### CMP, LIPA #### [facility] [address] [place] [address] Cain KarenCalcium [Mass/Vol]9.2 mg/dLNormal8.4-10.2[facility] Comment on above:Performed By: #### CMP, LIPA #### [facility] [address] [place] [address] Cain KarenChloride [Moles/Vol]105 mmol/PYoayfx91-536Hgl [facility] Comment on above:Performed By: #### CMP, LIPA #### [facility] [address] [place] [address] Cain KarenCO2 [Moles/Vol]25.4 mmol/KPbljko65.0-30.0The [facility] Comment on above:Performed By: #### CMP, LIPA #### [facility] [address] [place] [address] Cain KarenCreatinine [Mass/Vol]0.72 mg/dLNormal0.52-1.04The [facility] Comment on above:Performed By: #### CMP, LIPA #### [facility] [address] [place] [address] Cain KarenGlobulin (S) [Mass/Vol]3.2 g/dLNormalThe [facility] TownshipComment on above:Performed By: #### CMP, LIPA #### [facility] [address] [place] [address] Cain KarenGlucose [Mass/Vol]88 mg/rBJnpbxx32-492Vov [facility] TownshipComment on above:Performed By: #### CMP, LIPA #### [facility] [address] [place], [place] [address] Cain KarenPotassium [Moles/Vol]4.0 mmol/LNormal3.4-5.0The [facility] Comment on above:Performed By: #### CMP, LIPA #### [facility] [address] [place], [place] [address] Cain KarenProtein [Mass/Vol]6.9 g/dLNormal6.1-8.2The [facility] TownshipComment on above:Performed By: #### CMP, LIPA #### [facility] [address] [place], [place] [address] Cain KarenSodium [Moles/Vol]138 mmol/UTybggp176-107Yzq [facility] Comment on above:Performed By: #### CMP, LIPA #### [facility] [address] [place], [place] [address] Cain KarenUrea nitrogen [Mass/Vol]8.0 mg/dLNormal6.4-19.3The [facility] Comment on above:Performed By: #### CMP, LIPA #### [facility] [address] [place], [place] [address] Cain KarenUrea nitrogen/Creatinine [Mass ratio]11.1 mg/mgNormalThe [facility] TownshipComment on above:Performed By: #### CMP, LIPA #### [facility] [address] [place], [place] [address] Cain KarenUS PELVIS TRANSVAGon 04-34-6128WD PELVIS TRANSVAGEXAM: US PELVIS TRANSVAG HISTORY: Cyst [...] Electronically authenticated by: JONI GUZMAN Date: 2021-05-05 15:27[facility] Vital Signs Date TimeVital SignValuePerforming RzdohnrzlDjffvhaq50-74-2880 15:16-0400Body mass index (BMI) [Ratio]28.92 kg/m2Amy Gigi LALA Work Phone: [phone] CenterNzgprrhkdp38-62-9920 15:16-0400Body swsxke66.43 kgMunira LALA Work Phone: [facility] CenterHmafmmtxpj72-75-2490 15:16-0400Diastolic blood mm[Hg]Munira LALA Work Phone: [phone] CenterIwhmhfiteb83-37-2095 15:16-0400Systolic blood vwpmwovd305 mm[Hg]Munira LALA Work Phone: [facility] CenterYycitccjyh00-86-1838 13:59-0400Body mass index (BMI) [Ratio]28.84 kg/a9XqtnbnisDarlene Olmstead NP Work Phone: [facility] CenterUpkftlryqf23-92-1267 13:59-0400Body sjlddi65.2 kg Darlene Olmstead [employer] Work Phone: [phone] CenterXbgtduanxf25-46-9231 13:59-0400Diastolic blood znktimzv04 mm[Hg]Darlene Olmstead [employer] Work Phone: [facility] CenterOukdiyklxo40-62-6950 13:59-0400Systolic blood mtocvzij491 mm[Hg]Darlene Olmstead [employer] Work Phone: [facility] CenterSxsetqjocs69-94-6743 15:28-0400Body mass index (BMI) [Ratio]28.69 kg/p1FhkhpShania Antunez DO Work Phone: [facility] CenterUoxovpyjtm78-70-0936 15:28-0400Body .81 kgCorey Tulio DO Work Phone: [facility] CenterFiriezkjmq43-50-0536 15:28-0400Diastolic blood soeyisjs79 mm[Hg]Shania Tulio DO Work Phone: [facility] CenterTexdowndes60-46-9989 15:28-0400Systolic blood embcoapi193 mm[Hg]Shania Tulio DO Work Phone: [phone] [place], [place] [address]Dgwfobbmmi87-46-4973 13:52-0400Body mass index (BMI) [Ratio]28.97 kg/j1Afwgf Tulio DO Work Phone: [phone] [place], [place] [address]Cwtlywtmks89-51-0496 13:52-0400Body zoduft75.57 kgCorey Tulio DO Work Phone: [phone] [place], [place] [address]Qzffkjotlb48-64-5289 13:52-0400Diastolic blood zdovbfnx35 mm[Hg]Shania Tulio DO Work Phone: [phone] [place], [place] [address]Yzhljrumal21-81-2994 13:52-0400Systolic blood ykqrminz668 mm[Hg]Shania Tulio DO Work Phone: [phone] [place], [place] [address]Cxulnhhumc03-92-3564 15:54-0400Body mass index (BMI) [Ratio]28.24 kg/m2Munira LALA Work Phone: [phone] [place], [place] [address]Bszwmayzuz46-68-4311 15:54-0400Body aayexu90.62 kgMunira LALA Work Phone: [phone] [place], [place] [address]Piewvhczsd08-99-0311 15:54-0400Diastolic blood xazbblow79 mm[Hg]Munira LALA Work Phone: [phone] [place], [place] [address]Hnvelzifgn44-10-2209 15:54-0400Systolic blood fwmmtbeu066 mm[Hg]Munira LALA Work Phone: [facility] CenterJbrsitagol49-27-2728 13:34-0400Body mass index (BMI) [Ratio]29.35 kg/j0Ostxu Tluio DO Work Phone: [facility]OCenter[facility] CenterJsnxjtxame67-64-3884 13:34-0400Body xteetd58.56 kgCorey Tulio DO Work Phone: [facility]OC[facility] CenterLngcyzqppy44-49-2562 13:34-0400Diastolic blood jxgbdzyy76 mm[Hg]Shania Tulio DO Work Phone: HWCenterpoint Medical CenterCdyyffuufg79-70-2501 13:34-0400Systolic blood vwugpfka453 mm[Hg]Shania Tulio DO Work Phone: [facility]OC[facility] CenterMbbaqhctux93-23-4861 11:07-0400Body pstxte550.6 cmSfacundo Hernandes [employer] Work Phone: [facility] CenterJharvhavof87-99-9921 11:07-0400Body mass index (BMI) [Ratio]29.18 kg/o6MgwflkJose Antonio Hernandes [employer] Work Phone: [facility] CenterQnmlhwfqzu40-31-0291 11:07-0400Body .11 kgJose Antonio Hernandes [employer] Work Phone: [facility] CenterUdulgvvfhj22-92-4472 11:07-0400Diastolic blood mm[Hg]Jose Antonio Hernandes [employer] Work Phone: [facility] CenterBnttbjvrlj19-20-0738 11:07-0400Heart rate79 /min Jose Antonio Hernandes [employer] Work Phone: [facility] CenterWrurabhwrn91-29-4635 11:07-0400Respiratory rate16 /minSfacundo Hernandes [employer] Work Phone: [facility] CenterAdgogrwjmd70-24-6687 11:07-3449UgT0% (BldA) [Mass fraction]98 %Jose Antonio Hernandes [employer] Work Phone: NOCenterpoint [facility] CenterSvhdynkycv80-06-9537 11:07-0400Systolic blood reorurzp119 mm[Hg]Jose Antonio Hernandes [employer] Work Phone: [facility]OC[facility] CenterHypgltvdzo40-45-6646 13:36-0500Body mass index (BMI) [Ratio]32.58 kg/i6Bswzi Tulio DO Work Phone: [facility] CenterWwrfrfdcwj76-75-3071 13:36-0500Body ririoa65.09 kgCorey Tulio DO Work Phone: AMADOUCenterpoint Medical CenterPavjohrcfm28-36-1394 13:36-0500Diastolic blood yjgisisn83 mm[Hg]Shania Tulio DO Work Phone: noCenterpoint Medical CenterXttxpssjgl04-21-1810 13:36-0500Systolic blood hqejgyab519 mm[Hg]Shania Tulio DO Work Phone: no Healthcare Encounters Encounter DateEncounter TypeCare ProviderFacilityStart: 08-19-2025 End: 20-80-0200Qqijijlmc Result EncounterCorey Tulio DO Work Phone: no External Department UnsolicitedStart: 08-19-2025 End: 18-47-3046Plygcgrnb Result EncounterCorey Tulio DO Work Phone: no External Department UnsolicitedStart: 08-11-2025 End: 48-99-1377Sltohl outpatient visit 15 minutesAmy Gigi LALA Work Phone: [facility] OBGYNComment on above:Third trimester ([facility]); 30 weeks gestation of ([facility])Start: 08-11-2025 End: 36-04-8992mfynbmszrlXCO RAMEYNot AvailableStart: 07-27-2025 End: 03-17-5272Fnhqce flowsPablo Olmstead [employer] Work Phone: [facility] [facility]BGYNStart: 07-27-2025 End: 47-83-6917Larcfc flowsheetDarlene Ishan [employer] Work Phone: [facility]BGYNStart: 07-27-2025 End: 13-90-5224gbtltoftkeDZVYZXHV EBERLYNot AvailableStart: 07-27-2025 End: 61-94-9696Fejryl outpatient visit 15 minutesDarlene Olmstead [employer] Work Phone: [facility] OBGYNComment on above:Anemia, unspecified type (Primary Dx); 28 weeks gestation of ([facility]); Third trimester ([facility]); Elevated glucose tolerance testStart: 07-25-2025 End: 26-46-8914Redyqempy Result EncounterGeneric External Data ProviderNOMS External Department UnsolicitedStart: 07-25-2025 End: 73-80-9276Vhpnyoccx Result EncounterGeneric External Data ProviderNOMS External Department UnsolicitedStart: 07-13-2025 End: 39-57-3253Uktgmx outpatient visit 15 minutesCorey Tulio DO Work Phone: [facility] OBGYNComment on above:Cystitis (Primary Dx); 26 weeks gestation of ([facility]); Second trimester ([facility]); Gastroesophageal reflux in ([facility])Start: 07-13-2025 End: 74-18-7655mrhtxswejzEYTLV FAZIONot AvailableStart: 07-13-2025 End: 39-73-5436Hkjknf flowsheetCorey Tulio DO Work Phone: [facility]BGYNStart: 07-13-2025 End: 30-32-3315Xhqhry flowsheetCorey Tulio DO Work Phone: [facility]BGYNStart: 06-15-2025 End: 00-16-7284Gqkueo flowsheetCorey Tulio DO Work Phone: [facility]BGYNStart: 06-15-2025 End: 62-89-4075Tvqxkq flowsheetCorey Tulio DO Work Phone: [facility]BGYNStart: 06-15-2025 End: 05-83-4078Tgtwau outpatient visit 15 minutesCorey Tulio DO Work Phone: [facility]BGYNComment on above:22 weeks gestation of ([facility]); Second trimester ([facility]); Diabetes mellitus screeningStart: 06-15-2025 End: 58-84-6895xarsovfpkbRBRIU FAZIONot AvailableStart: 05-31-2025 End: 87-92-7965ywjhyguodqNNC RAMEYNot AvailableStart: 05-18-2025 End: 64-54-9267Phihiu outpatient visit 15 minutesMunira LALA Work Phone: noms BCP OBComment on above:Screening, , for anatomic survey ([facility]); STD exposure; Vaginal discharge; Second trimester ([facility]); 18 weeks gestation of ([facility])Start: 05-18-2025 End: 62-38-3033nydvgypppdNYE RAMEYNot AvailableStart: 05-18-2025 End: 96-36-4612Lyluda carmenJames LALA Work Phone: NOM[facility] BCP OBStart: 05-18-2025 End: 05-56-7102Wubmjx carmenJames LALA Work Phone: [facility] BCP OBStart: 05-18-2025 End: 33-85-8973Kniaunxv Result EncounterMunira LALA Work Phone: [facility] External Department UnsolicitedStart: 04-06-2025 End: 13-82-5844Ppziqo flowsheetCorey Tulio DO Work Phone: n[facility] BCP OBStart: 04-06-2025 End: 55-27-2797Fgqcrw flowsheetCorey Tulio DO Work Phone: noms BCP OBStart: 04-06-2025 End: 22-32-8131Nmfipq outpatient visit 15 minutesCorey Tulio DO Work Phone: NOXD BCP OBComment on above:First trimester ; 12 weeks gestation of ; Urinary tract infection without hematuria, site unspecified; Other iron deficiency anemiaStart: 04-06-2025 End: 93-23-4760zypcoazwhdZZWBL FAZIONot AvailableStart: 04-05-2025 End: 79-20-0489Dxqqjk flowsИрина Hernandes NP Work Phone: noms CI FMStart: 04-05-2025 End: 25-57-7310Bfchmr Heide Neri Rainbow [employer] Work Phone: [facility] CI FMStart: 04-05-2025 End: 98-81-4984Bzdnsq outpatient visit 25 minutesShagye Hernandes [employer] Work Phone: [facility] CI FMComment on above:Jaw pain (Primary Dx); Major depressive disorder, single episode, 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) (CMS/HCC); Otalgia of both earsStart: 04-05-2025 End: 93-42-7830aujjuzfmeqBFSLZM M SHIVELYNot AvailableStart: 04-01-2025 End: 49-01-9560Tyedwtfog Result EncounterGeneric External Data ProviderNOMS External Department UnsolicitedStart: 04-01-2025 End: 55-91-9405Ywwvzhiis Result EncounterGeneric External Data ProviderNOMS External Department UnsolicitedStart: 03-10-2025 End: 80-35-5311fvmbnuvpfqWDDSRV SHIVELYNot AvailableStart: 03-10-2025 End: 64-89-6890Qazeab outpatient visit 5 minutesNoms Bcp Ob Tulio NurseNOMS BCP OBComment on above:GA: 2q9jPmwjf: 03-10-2025 End: 46-32-2837dypxadaesmPTPNAP SHIVELYNot AvailableStart: 09-07-2024 End: 22-58-2583Mijemf flowsheetCorey Tulio DO Work Phone: [facility] BCP OBStart: 09-07-2024 End: 17-92-3880Icvqys flowsheetCorey Tulio DO Work Phone: [facility] BCP OBStart: 09-07-2024 End: 73-06-9792Yvvsgr outpatient visit 15 minutesCorey Tulio DO Work Phone: [facility] BCP OBComment on above:PCOS (polycystic ovarian syndrome); Hormone imbalance; Pelvic pain in female; Pain in female genitalia on intercourseStart: 09-07-2024 End: 20-08-5477vosvlweqdmUKKBS FAZIONot AvailableStart: 06-15-2024 End: 13-72-6626Bgsgnewzf Result EncounterGeneric External Data ProviderNOMS External Department UnsolicitedStart: 06-15-2024 End: 91-52-6632Utkqlrsdh Result EncounterGeneric External Data ProviderNOMS External Department UnsolicitedStart: 01-02-2022 End: 19-38-1265krfmytsgojHU HEAVENLY CHAPARROFacility:J0Uairm: 10-12-2021 End: 71-75-8497uumjupbycbAH HEAVENLY CHAPARROFacility:E9Tcuzq: 05-05-2021 End: 42-45-7290ftlopgphpcWQ ELIANA ALDAFacility:H1 Procedures DateProcedureProcedure DetailPerforming ClinicianStart: 79-39-1665UTR UA (CLEAN/CATCH) WIRE WEAVER CLOTH/MICRO IF IND.Shania Tulio DO Work Phone: Start: 38-92-0473Fmxvf dip stick/tablet rgnt non-auto w/o micrscpAmy Gigi LALA Work Phone: Start: 47-32-5649Meisu dip stick/tablet rgnt non-auto w/o micrscpKristina Ishan [employer] Work Phone: Start: 49-88-9442KJV CBC WITH AUTO DIFFCorey Tulio DO Work Phone: Start: 04-02-3653Oqtfc dip stick/tablet rgnt non-auto w/o micrscpCorey Tulio DO Work Phone: Start: 09-55-4802Hjdbq dip stick/tablet rgnt non-auto w/o micrscpCorey Tulio DO Work Phone: Start: 05-78-0222CMYWFLRTX VAGINITIS (HTRX)Munira LALA Work Phone: Start: 32-07-2551Dyvbb dip stick/tablet rgnt non-auto w/o micrscpAradha LALA Work Phone: Start: 39-20-4031Mnphc dip stick/tablet rgnt non-auto w/o micrscpCorey Tulio DO Work Phone: Start: 40-31-2410VMT CBC WITH AUTO DIFFCorey Tulio DO Work Phone: Start: 49-86-7579XPO CBC WITH AUTO DIFFCorey Tulio DO Work Phone: Plan of Treatment DateCare ActivityDetailAuthorStart: 08-25-2025 End: 18-28-9711Clebydw encounter koxvnqjyl28/30/2025 3:20 PM EDT Routine [facility] [address] [place], [id number] Munira Garcia PA [address] [place] [address] NOMKelley [place] OBGYNStart: 07-27-2025 End: 77-29-6124Jxkrjbzfjmr of glucose 3 hours after glucose challenge for glucose tolerance testGlucose tolerance, 3 hours Lab Routine Elevated glucose tolerance test Expected: 07/27/2025 (Approximate), Expires: 07/27/2026[facility] Work Phone: comment on above:Expected: 07/27/2025 (Approximate), Expires: 07/27/2026Start: 07-27-2025 End: 75-61-1517Tqetphk encounter yefmbjatp52/01/2025 1:50 PM EDT Routine [facility] [address] [place], [id number] Darlene Olmstead, [employer] [address] [place] [id number] NOMKelley [facility] OBGYNStart: 07-13-2025 End: 59-96-5790Zqmegzw encounter procedureNOMS Deion OBGYNComment on above: ArrivedStart: 07-13-2025 End: 14-71-4571DC for pregnancyUS OB follow up transabdominal approach Imaging Routine Second trimester ([facility]) Expected: 07/13/2025, Expires: 11/12/2025[facility] Work Phone: comment on above:Expected: 07/13/2025, Expires: 11/12/2025Start: 16-35-9595Exaftftqy vaccinationPRIMARY CHILDREN'S HOSPITAL HealthcareStart: 06-15-2025 End: 02-46-9481RQT panel - Blood by Automated countCBC Lab Routine Diabetes mellitus screening Expected: 06/15/2025 (Approximate), Expires: 06/15/2026[facility] Work Phone: comment on above:Expected: 06/15/2025 (Approximate), Expires: 06/15/2026Start: 06-15-2025 End: 10-45-3984Ejjqwhlhfbo of glucose 1 hour after glucose challenge for glucose tolerance testGlucose tolerance, 1 hour Lab Routine Diabetes mellitus screening Expected: 06/15/2025 (Approximate), Expires: 06/15/2026[facility] HealthcareComment on above:Expected: 06/15/2025 (Approximate), Expires: 06/15/2026Start: 06-15-2025 End: 58-76-8792Sxpokfe encounter procedureNOTX BCP OBComment on above:Arrived Start: 05-31-2025 End: 29-32-4681Zxqedbgrxzjh / ancillary services wsfuvukqhs40/05/2025 8:30 AM EDT Ancillary Procedure [facility] [address] [place] [address] [facility] OBStart: 05-18-2025 End: 23-66-5929Tcfbxgv encounter jlofgfrkl52/23/2025 3:30 PM EDT Routine [facility] [address] [place] [address] Munira Garcia PA [address] [place], [place] [id number] ArrivedNOTX BCP OBComment on above: ArrivedStart: 05-18-2025 End: 21-16-2949Cclmv fetoprotein, maternalAlpha fetoprotein, maternal Lab Routine 18 weeks gestation of ([facility]) Expected: 05/18/2025 (Approximate), Expires: 06/18/2025[facility] HealthcareComment on above:Expected: 05/18/2025 (Approximate), Expires: 06/18/2025Start: 05-18-2025 End: 77-28-8700YA for pregnancyUS OB 14+ weeks anatomy scan Imaging Routine Screening, , for anatomic survey ([facility]) Expected: 05/18/2025, Expires: 08/18/2025[facility] HealthcareComment on above:Expected: 05/18/2025, Expires: 08/18/2025Start: 05-04-2025 End: 48-93-5812Lcbjevu encounter blynoewld06/09/2025 2:30 PM EDT Routine [facility] [address] [place] [address] Munira Garcia PA [address] [facility] [address] [place], [place] [id number] [facility] BCP OBStart: 04-06-2025 End: 85-77-5943Npehuvu encounter procedureNOMS BCP OBComment on above:Arrived Start: 04-05-2025 End: 30-51-9897Qlebqol encounter procedureNOMS BCP OBComment on above:Arrived Start: 03-10-2025 End: 61-03-1536KPN/RhABO/Rh Lab Routine Missed menses , unspecified gestational age Expected: 03/10/2025 (Approximate), Expires: 03/10/2026[facility] HealthcareComment on above:Expected: 03/10/2025 (Approximate), Expires: 03/10/2026Start: 03-10-2025 End: 11-84-1920Uvptk type and Indirect antibody screen panel - BloodType and screen Lab Routine Missed menses , unspecified gestational age Expected: 03/10/2025 (Approximate), Expires: 03/10/2026[facility] HealthcareComment on above:Expected: 03/10/2025 (Approximate), Expires: 03/10/2026Start: 03-10-2025 End: 55-84-7125Vkxlv of abuse panel - Urine by Screen methodRapid drug screen, urine Lab Routine , unspecified gestational age Encounter for supervision of normal first in first trimester Expected: 03/10/2025 (Approximate), Expires: 03/10/2026[facility] HealthcareComment on above:Expected: 03/10/2025 (Approximate), Expires: 03/10/2026Start: 03-09-2025 End: 83-09-1920FK Pelvis transvaginalUS OB transvaginal Imaging Routine Missed menses Expected: 03/09/2025, Expires: 06/09/2025[facility] Work Phone: comment on above:Expected: 03/09/2025, Expires: 06/09/2025Start: 11-01-2024 End: 53-08-6282Ajeyspj encounter pjactofli21/06/2025 1:20 PM EST Consult [facility] [address] [place] [id number] Shania Antunez, DO [address] [place] [address] [facility] OBStart: 09-07-2024 End: 40-32-7184Zecnyyv encounter jypgcoyyo41/12/2024 8:40 AM EST Office Visit [facility] [address] [place] [address] Shania Antunez, DO [address] [place] [address] [facility] BCP OBStart: 74-57-5653Hnpttamlo vaccination Influenza Vaccine (#1)[facility] HealthcareBacteria identified in Urine by Culture Urine culture Microbiology Routine Missed menses Ordered: 03/10/2025[facility] HealthcareComment on above:Ordered: 5Bacteria identified in Urine by CultureUrine culture Microbiology Routine Cystitis Ordered: 07/13/2025[facility] HealthcareComment on above:Ordered: 5CBC W Auto Differential panel - BloodCBC and differential Lab Routine Missed menses , unspecified gestational age Ordered: 03/10/2025[facility] HealthcareComment on above:Ordered: 03/10/2025HLAMYDIA TRACHOMATIS (GENITO/STI)CHLAMYDIA TRACHOMATIS (GENITO/STI) Lab Routine Vaginal discharge Ordered: 05/18/2025[facility] HealthcareComment on above:Ordered: 05/18/2025Hemoglobin A1c/Hemoglobin.total in BloodHemoglobin A1c Lab Routine Missed menses , unspecified gestational age Ordered: 03/10/2025[facility] HealthcareComment on above:Ordered: 03/10/2025Hepatitis B virus surface Ag [Presence] in Serum or Plasma by ImmunoassayHepatitis B surface antigen Lab Routine Missed menses , unspecified gestational age Ordered : 03/10/2025[facility] HealthcareComment on above:Ordered: 03/10/2025Hepatitis C virus Ab [Presence] in Serum or Plasma by ImmunoassayHepatitis C antibody Lab Routine Missed menses , unspecified gestational age Ordered: 03/10/2025[facility] HealthcareComment on above:Ordered: 03/10/2025HIV-1/HIV-2 antigen/antibody combination immunoassayHIV-1 and HIV-2 antibodies Lab Routine Missed menses , unspecified gestational age Ordered: 03/10/2025[facility] HealthcareComment on above:Ordered: 03/10/2025Neisseria gonorrhoeae DNA [Presence] in Unspecified specimen by STEVO with probe detectionNeisseria gonorrhea DNA probe, direct Lab Routine Vaginal discharge Ordered: 05/18/2025[facility] HealthcareComment on above: Ordered: 05/18/2025ProgesteroneProgesterone Lab Routine Hormone imbalance Ordered: 09/07/2024[facility] Work Phone: comment on above:Ordered: 09/07/2024eagin Ab [Presence] in Serum by RPRRPR Lab Routine Missed menses , unspecified gestational age Ordered: 03/10/2025[facility] HealthcareComment on above:Ordered: 03/10/2025Rubella antibody, IgGRubella antibody, IgG Lab Routine Missed menses , unspecified gestational age Ordered: 03/10/2025[facility] HealthcareComment on above:Ordered: 03/10/2025SURESWAB(R) ADVANCED VAGINITIS PLUS, TMASURESWAB(R) ADVANCED VAGINITIS PLUS, TMA Pathology and Cytology Routine Vaginal discharge Ordered: 05/18/2025[facility] [employer] Work Phone: comgcmh on above:Ordered: 05/18/2025US Pelvis transvaginalUS OB transvaginal Imaging Routine Missed menses 03/10/2025 2:28 PM EDTUniversity Health Lakewood [facility] Center Payers DatePayer CategoryPayerPolicy ID2023Medicaid [id number] 2023Medicaid (Managed Care) [id number] [id number] 2.16.840.1.980396.3.57[id number] 2.16.840.1.769944.3.57[id number] 2.16.840.1.599471.3.57[id number] 2.16.840.1.374664.3.57[id number] 2.16.840.1.375182.3.57[id number] 2.16.840.1.945184.3.57[id number] 2.16.840.1.982502.3.57[id number] 2.16.840.1.311352.3.57[id number] 2.16.840.1.056625.3.57[id number] 2.16.840.1.999391.3.57[id number] 2.16.840.1.453329.3.57[id number] 2.16.840.1.569081.3.57[id number] 2.16.840.1.406914.3.57[id number] 2.16.840.1.914279.3.57[id number] 2.16.840.1.741380.3.57[id number] Social History DateTypeDetailFacilityStart: 12-30-2023 End: 76-98-2812Qnygalr smoking status NHISNever smoked tobaccoNOMS Healthcare Start: 12-30-2023 End: 67-29-6634Fwjiyri of Social functionNOMS HealthcareStart: 12-30-2023 End: 22-40-1173Zojhbhx use panelNOMS HealthcareStart: 75-54-8893Zuw assigned at birthNot on fileNOMS HealthcareStart: 54-61-4452NrxtbkulaMGUR HealthcareStart: 78-58-9410Mlspffr use and exposureSmokeless tobacco non-userNOMS Healthcare Start: 04-05-2025 End: 91-63-3842Eznnzsuul beverage intakeLifetime non-drinker (finding)[facility] HealthcareStart: 93-27-7144PriZmdsmnEKGL HealthcareNEGATED: Highlighted row Start: NINFHistory of tobacco usePassive smokerNOMS Healthcare Functional Status RpdzXwtzbbjvzmAlrllcHtnbzmgb89-67-0260Zegiqta Health Questionnaire 2 item (PHQ- 2) [Reported][facility] Clinical Notes 09-07-2024 to 08-11-2025 Note Date & WfhgEiffBekjjhsa05-17-2447 History of Present illness Narrative* SPIKE Guzman [...] Size of fetus inconsistent with dates, antepartum ([facility]) 08/10/2025 Resolved Ambulatory Problems Diagnosis Date [...] ASSESSMENT & PLAN ICD-10-CM 1. Third trimester ([facility]) Z34.93 POCT urinalysis dipstick manually resulted 2. 30 weeks gestation of ([facility]) Z3A.30 Return OB: Patient presents today for [...] surgical history on file. documented in this encounterUniversity Health Lakewood Medical CenterOgjsuupqms71-76-4611 History of Present illness Narrative* Darlene Olmstead [...] nursing note reviewed. Exam conducted with a vegetable farming supervisor present. Vitals: Estimated body mass index is 28.84 kg/m as calculated from the following: Height as of 04/05/25: 5' 4 . Weight as of this encounter: 168 lb. BP: 112/70 Patient's last menstrual period was 01/07/2025. ASSESSMENT & PLAN ICD-10-CM 1. Anemia, unspecified type D64.9 iron polysaccharides (ProFe) 391.3 (180 Fe) MG capsule 2. 28 weeks gestation of ([facility]) Z3A.28 POCT urinalysis dipstick manually resulted 3. Third trimester ([facility]) Z34.93 4. Elevated glucose tolerance test R73.09 [...] of: Darlene Olmstead NP documented in this encounterUniversity Health Lakewood Medical CenterZiivhymyxs60-97-6679 History of Present illness Narrative* Darlene Olmstead, [employer] CONSULTANT - 07/13/2025 3:20 PM EDT Reason for [...] nursing note reviewed. Exam conducted with a vegetable farming supervisor present. Vitals: Estimated body mass index is 28.69 kg/m as calculated from the following: Height as of 04/05/25: 5' 4 . Weight as of this encounter: 167 lb 1.9 oz. BP: 120/68 Patient's last menstrual period was 01/07/2025. ASSESSMENT & PLAN ICD-10-CM 1. Cystitis N30.90 nitrofurantoin, macrocrystal-monohydrate, (Macrobid) 100 MG capsule Urine culture 2. 26 weeks gestation of ([facility]) Z3A.26 POCT urinalysis dipstick manually resulted 3. Second trimester ([facility]) Z34.92 POCT urinalysis dipstick manually resulted US OB follow up transabdominal approach 4. Gastroesophageal reflux in ([facility]) O99.619 omeprazole (PriLOSEC) [address] capsule [...] of: Shania Antunez DO documented in this encounterUniversity Health Lakewood Medical CenterGnvnmbjcak80-64-6236 History of Present illness Narrative* SPIKE Guzman [...] PLAN ICD-10-CM 1. 22 weeks gestation of ([facility]) Z3A.22 POCT urinalysis dipstick manually resulted 2. Second trimester ([facility]) Z34.92 POCT urinalysis dipstick manually resulted 3. [...] of: Shania Antunez DO documented in this encounterUniversity Health Lakewood Medical CenterErvxbqnpxe03-14-9500 History of Present illness Narrative* SPIKE Guzman [...] ICD-10-CM 1. Screening, , for anatomic survey ([facility]) Z36.89 US OB 14+ weeks anatomy scan US OB 14+ weeks anatomy scan 2. STD exposure Z20.2 3. Vaginal discharge N89.8 SURESWAB(R) ADVANCED VAGINITIS PLUS, TMA CHLAMYDIA TRACHOMATIS (GENITO/STI) Neisseria gonorrhea DNA probe, direct 4. Second trimester ([facility]) Z34.92 5. 18 weeks gestation of ([facility]) Z3A.18 POCT urinalysis dipstick manually resulted Alpha [...] behalf of: SPIKE Guzman documented in this encounterUniversity Health Lakewood Medical CenterJnuzvcjdtf00-43-3551 History of Present illness Narrative* Shania Antunez DO - 04/06/2025 1:20 PM EDT Reason for [...] nursing note reviewed. Exam conducted with a vegetable farming supervisor present. Vitals: Estimated body mass index is [...] or undercooked meat, and stay away from [facility] system. Patient has been consulted regarding any further [...] of: Shania Antunez DO documented in this encounterUniversity Health Lakewood Medical CenterPbagfibqas68-59-7197 History of Present illness Narrative* Jose Antonio Hernandes, [employer] CONSULTANT - 04/05/2025 11:00 AM EDT Images from the original note were not included. Subjective Patient ID: Veronica Blas is a 19 y.o. female who presents for jaw/ ear pain presents today for left sided ear/ jaw [...] your allergy medication. You reported that the [employer] IN[employer]ER said you could take zyrtec for your allergies. Continue on this medication. The medication should help with the fluid in the inner ear. No follow-ups on file. documented in this encounterUniversity Health Lakewood Medical CenterZsmpteqnsy87-26-3468 History of Present illness Narrative* Heather Savage LPN - 03/10/2025 1:30 PM EDT Reason for [...] or undercooked meat, and stay away from [facility] system. 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 Exam conducted with a vegetable farming supervisor present. Vitals: Estimated body mass index is 32.58 kg/m as calculated from the following: Height as of 24: 5' 4 . 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) ([facility]) Otalgia of both ears documented in this encounter [facility] HealthcareEvaluation note* Diagnosis First trimester state, incidental 12 weeks gestation of Urinary tract infection without hematuria, site unspecified Other iron deficiency anemia documented in this encounter [facility]Evaluation [facility]* Diagnosis Screening, , for anatomic survey ([facility]) Encounter for anatomic survey STD exposure Vaginal discharge Leukorrhea, not specified as infective Second trimester ([facility]) state, incidental 18 weeks gestation of ([facility]) documented in this encounter [facility]Evaluation [facility]* Diagnosis 22 weeks gestation of ([facility]) Second trimester ([facility]) state, incidental Diabetes mellitus screening Screening for diabetes mellitus documented in this encounter [facility]* Diagnosis Cystitis- Primary Unspecified cystitis 26 weeks gestation of ([facility]) Second trimester ([facility]) state, incidental Gastroesophageal reflux in ([facility]) documented in this encounter [facility]* Diagnosis Anemia, unspecified type- Primary 28 weeks gestation of ([facility]) Third trimester ([facility]) state, incidental Elevated glucose tolerance test Impaired glucose tolerance test documented in this encounter [facility]* Diagnosis Third trimester ([facility]) state, incidental 30 weeks gestation of ([facility]) documented in this encounter [facility] Summary Purpose Family History No Family History Records FoundNo Family History Records Found Advance Directives No Advanced Directives Records FoundNo Advanced Directives Records Found Additional Source Comments INFORMATION SOURCE (unrecogn ized section and content) DATE CREATED AUTHOR 01/04/2022 [facility] DATE CREATED AUTHOR AUTHOR'S ORGANIZ ATION 08/13/2025 [facility] EPIC Care Teams (unrecognized sec tion and content) Team MemberRelationshipSpecialtyStart DateEnd Date Eliana Flanagan MD [address] [address] [facility] - [facility]03/04/23 Jose Antonio Hernandes NP [address] [facility] [address] [place] [address] PCP - S [facility]07/27/24Team MemberRelationshipSpecialtyStart DateEnd Date Eliana Flanagan MD [address] [place] [address] [facility] - [facility]03/04/23 Jose Antonio Hernandes, [employer] CONSULTANT [address] [place] [address] [facility] - [facility]07/27/24Te MemberRelationshipSpecialtyStart DateEnd Date Eliana Flanagan MD [address] [place] [address] [facility]03/04/23Te MemberRelationshipSpecialtyStart DateEnd Date Eliana Flanagan MD [address] [place] [address] [facility]03/04/23 Jose Antonio Hernandes, [employer] CONSULTANT [address] [place] [address] [facility]07/27/24Te MemberRelationshipSpecialtyStart DateEnd Date Eliana Flanagan MD [address] [place] [address] [facility]03/04/23 Jose Antonio Hernandes, [employer] CONSULTANT [address] [place] [address] [facility]07/27/24Te MemberRelationshipSpecialtyStart DateEnd Date Eliana Flanagan MD [address] [place] [address] [facility]03/04/23 Jose Antonio Hernandes, [employer] CONSULTANT [address] [place] [address] [facility]07/27/24Te MemberRelationshipSpecialtyStart DateEnd Date Eliana Flanagan MD [address] [place] [address] [facility]03/04/23 Jose Antonio Hernandes, [employer] CONSULTANT [address] [place] [address] [facility]07/27/24Te MemberRelationshipSpecialtyStart DateEnd Date Eliana Flanagan MD [address] [place] [address] [facility]03/04/23 Jose Antonio Hernandes, PE[employer] CONSULTANT [address] [place] [address] [facility]07/27/24Team MemberRelationshipSpecialtyStart DateEnd Date Eliana Flanagan MD [address] [place] [address] [facility]03/04/23 Jose Antonio Hernandes, [employer] CONSULTANT [address] [place] [address] [facility]07/27/24Te MemberRelationshipSpecialtyStart DateEnd Date Eliana Flanagan MD [address] [place] [address] PCP - GeneralFamily Medicine03/04/23Team MemberRelationshipSpecialtyStart DateEnd Date Eliana Flanagan MD [address] [facility] [address] [place] [address] [facility]03/04/23Team MemberRelationshipSpecialtyStart DateEnd Date Eliana Flanagan MD [address] [facility] [address] [place] [address] PCP - Generalmily Medicine03/04/23Team MemberRelationshipSpecialtyStart DateEnd Date Eliana Flanagan MD [address] [facility] [address] [place] [address] [facility] - [facility]03/04/23Te MemberRelationshipSpecialtyStart DateEnd Date Eliana Flanagan MD [address] [facility] [address] [place] [address] PCP - [facility]03/04/23Te MemberRelationshipSpecialtyStart DateEnd Date Eliana Flanagan MD [address] [facility] [address] [place] [address] PCP - [facility]03/04/23Te MemberRelationshipSpecialtyStart DateEnd Date Eliana Flanagan MD [address] [facility] [address] [place] [address] [facility]CP - [facility]03/04/23 Reason for Visit (unrecogniz ed section and [...] BE BASED ON THE PRIMARY CLINICAL RECORDS. [facility] [employer] [facility]. provides no warranty or guarantee of the accuracy or completeness of information in this document.
== END 2025-08-22 08:26 | disposition home or self-care (01) ==
LOC: LAB 08:26
PROVIDERS: PCP Family Medicine; Visit Provider Obstetrics & Gynecology
DX: R73.09 Other abnormal glucose (principal)
CPT/HCPCS: 36415; 80053; 82947; 82951; 82952; 83735

== ENCOUNTER 2025-08-26 10:48 | Outpatient (OUT) | payer OTHER, SELFPAY ==
--- OUTSIDE RECORDS SUMMARY | 2024-03-01 09:30 | XMS_ITS ---
Author Organization [facility] Address [address] [place] [address] Care Team Providers Care Commodity Broker Name Role Phone Bethany Wells Primary Care Provider Nate Gutierrez [facility] [phone] REASON FOR VISIT FILLING Encounters Encounter Location Date Provider Diagnosis [address] [address] 03/01/2024 Nate Gutierrez Plan Of Treatment No Information Progress Notes * BDOB:11/2004 (19 yo F)Acc No.[id number]:03/01/2024 Patient:?AYALA :?Nate Gaytan DDSDOB:2005???Age:18 Y???Sex: FemaleDate:03/01/2024hone:[phone]:[address] [id number]:Bethany Guerrero Subjective: * Chief Complaints: * F ILLING * Electronic signature of Nate Gutiererz on 08/26/2025 at 10:51 AM EDTSign off status: Pending * Provider: Alyssia Gaytan DDS Date: 0 03/01/2024 Generated for Printing/Faxing/eTransmitting on:?08/26/2025 10:51 AM EDT
--- OUTSIDE RECORDS SUMMARY | 2024-08-16 10:00 | XMS_ITS ---
Author Organization [facility] Address [address] [place] [address] Care Team Providers Care Senior Accountant Analyst Name Role Phone Bethany Wells Primary Care Provider Charlee Lawrence Unavailable [phone] REASON FOR VISIT 6 MONTHS Encounters Encounter Location Date Provider Diagnosis [facility] [address] [place] [address] 08/16/2024 Charlee Keithgamaliel Plan Of Treatment No Information Progress Notes * BDOB:11/2004 (19 yo F)Acc No.[id number]:08/16/2024 Patient:?LUCY :?Charlee LawrenceDOB:2005???Age:18 Y???Sex: FemaleDate:08/16/2024hone:[phone]:SUDHEER YU [id number]:Bethany Guerrero Subjective: * Chief Complaints: * 6 MONTHS * Electronic signature of Charlee Lawrence on 08/26/2025 at 10:51 AM EDTSign off status: Pending * Provider: Dru Lawrence Date: Generated for Printing/Faxing/eTransmitting on:?08/26/2025 10:51 AM EDT
--- OUTSIDE RECORDS SUMMARY | 2025-04-27 06:00 | XMS_ITS ---
Author Organization [facility] Address [address] [place] [address] Care Team Providers Care Sas Administrator Name Role Phone Bethany Wells Primary Care Provider [phone] Dr. Adolfo Reagan [facility] [phone] REASON FOR VISIT JAW AND TOOTH PAIN Encounters Encounter Location Date Provider Diagnosis [facility] [address] [place] [address] 04/27/2025 Adolfo Reagan Plan Of Treatment No Information Progress Notes * BDOB:11/2004 (19 yo F)Acc No.[id number]:04/27/2025 Patient:? :Yelena Reagan DDSDOB:2005???Age:19 Y???Sex: FemaleDate:04/27/2025Phone:[phone]:SUDHEER YU [id number]:Bethany Guerrero Subjective: * Chief Complaints: * J AW AND TOOTH PAIN Billing Information: * Procedure Codes: * Electronic signature of Dr. Adolfo Reagan , [facility], [id number] on 08/26/2025 at 10:51 AM EDTSign off status: Pending * Provider: Parrish Reagan DDS Date: 0 04/27/2025 Generated for Printing/Faxing/eTransmitting on:?08/26/2025 10:51 AM EDT
--- OUTSIDE RECORDS SUMMARY | 2025-05-10 06:00 | XMS_ITS ---
Author Organization [facility] Address [address] [place] [address] Care Team Providers Care Mission Coordinator Name Role Phone Bethany Wells Primary Care Provider [phone] Dr. Adolfo Reagan [facility] [phone] REASON FOR VISIT JAW AND TOOTH PAIN Encounters Encounter Location Date Provider Diagnosis [facility] [address] [place] [address] 05/10/2025 Adolfo Reagan Plan Of Treatment No Information Progress Notes * BDOB:11/2004 (19 yo F)Acc No.[id number]:05/10/2025 Patient:? :Yelena Reagan DDSDOB:2005???Age:19 Y???Sex: FemaleDate:05/10/2025Phone:[phone]:SUDHEER YU [id number]:Bethany Guerrero Subjective: * Chief Complaints: * J AW AND TOOTH PAIN * Electronic signature of Dr. Adolfo Reagan , [facility], [id number] on 08/26/2025 at 10:51 AM EDTSign off status: Pending * Provider: Parrish Reagan DDS Date: 0 05/10/2025 Generated for Printing/Faxing/eTransmitting on:?08/26/2025 10:51 AM EDT
--- OUTSIDE RECORDS SUMMARY | 2025-07-27 13:50 | XMS_ITS | Encounter Summary ---
Author Organization [facility] Address [address] [facility] [place] [address] Care Team Providers Care Dye Range Operator Name Role Phone Eliana Flanagan MD Primary Care Provider [phone] Reason for Visit * ReasonCommentsRoutine Visit Encounter Details DateTypeDepartmentCare Team (Latest Contact Info)Agsfutroans08/01/2025 1:50 PM EDTRoutine [facility] [address] [place] [address] Darlene Olmstead, POTATO CHIP MAKER [address] [place] [address] Anemia, unspecified type (Primary Dx); 28 weeks gestation of ([facility]); Third trimester ([facility]); Elevated glucose tolerance test Social History Tobacco UseTypesPacks/DayYears UsedDateSmoking Tobacco: NeverPassive Smoke Exposure: NeverSmokeless Tobacco: NeverAlcohol UseStandard Drinks/WeekComments Never0 (1 standard drink = 0.6 oz pure alcohol)PHQ-2AnswerDate RecordedPatient Health Questionnaire-2 Jalym207Estimated Date of Delivery VvmayxnzGzm93/19/2025Based on last menstrual period of 01/07/2025Sex and Gender InformationValueDate RecordedSex Assigned at BirthNot on fileLegal SexFemale 01/08/2023 6:51 PM EDTGender IdentityNot on fileSexual OrientationNot on file documented as of this encounter Last Filed Vital Signs Vital SignReadingTime TakenCommentsBlood Bigdmbpl996/7010 1:59 PM EDT Pulse--Temperature--Respiratory Rate--Oxygen Saturation--Inhaled Oxygen Concentration--Eowwdw00.2 kg (168 lb)07/27/2025 1:59 PM EDTHeight--Body Mass [...] nursing note reviewed. Exam conducted with a rubber tester present. Vitals: Estimated body mass index is 28.84 kg/m?? as calculated from the following: Height as of 04/05/25: 5' 4 . Weight as of this encounter: 168 lb. BP: 112/70 Patient's last menstrual period was 01/07/2025. ASSESSMENT & PLAN ICD-10-CM 1. Anemia, unspecified type D64.9 iron polysaccharides (ProFe) 391.3 (180 Fe) MG capsule 2. 28 weeks gestation of ([facility]) Z3A.28 POCT urinalysis dipstick manually resulted 3. Third trimester ([facility]) Z34.93 4. Elevated glucose tolerance test [...] Plan of Treatment DateTypeDepartmentCare Team (Latest Contact Info)Jguvpcmurau75/18/2025 9:20 AM ESTRoutine [facility] [address] [place] [phone] Alex Antunez DO [address] [place] [address] NameTypePriorityAssociated DiagnosesOrder ScheduleGlucose tolerance, 3 hoursLab Routine Elevated glucose tolerance test Expected: 07/27/2025 (Approximate), Expires: 07/27/2026documented as of this encounter Procedures Procedure NamePriorityDate/TimeAssociated DiagnosisCommentsPOCT URINALYSIS NXVPHMJSLlqehzy40/01/2025 2:06 PM EDT 28 weeks gestation of ([facility]) documented in this encounter Results * POCT [...] unspecified type- Primary 28 weeks gestation of ([facility]) Third trimester ([facility]) state, incidental Elevated glucose tolerance test Impaired glucose tolerance test documented in this encounter Care Teams Team MemberRelationshipSpecialtyStart DateEnd Date Eliana Flanagan MD [address] [place] [address] PCP - GeneralFamily Medicine03/04/23documented as of this encounter
--- OUTSIDE RECORDS SUMMARY | 2025-08-25 15:20 | XMS_ITS | Encounter Summary ---
Author Organization [facility] Address [address] [facility] [facility] [place] [address] Care Team Providers Care Mannequin Molder Name Role Phone Eliana Flanagan MD Primary Care Provider [phone] Reason for Visit * ReasonCommentsRoutine Visit Encounter Details DateTypeDepartmentCare Team (Latest Contact Info)Tyrajhxdldr43/30/2025 3:20 PM EDTRoutine [facility] [address] [place] [phone] Munira Yu PA [address] [place], [facility] Urinary tract infection without hematuria, site unspecified (Primary Dx); Third trimester ([facility]); 32 weeks gestation of ([facility]) Social History Tobacco UseTypesPacks/DayYears UsedDateSmoking Tobacco: NeverPassive Smoke Exposure: NeverSmokeless Tobacco: NeverAlcohol UseStandard Drinks/WeekComments Never0 (1 standard drink = 0.6 oz pure alcohol)PHQ-2AnswerDate RecordedPatient Health Questionnaire-2 Dboqv323Estimated Date of Delivery YmhylwpkLmm06/19/2025Based on last menstrual period of 01/07/2025Sex and Gender InformationValueDate RecordedSex Assigned at BirthNot on fileLegal SexFemale 01/08/2023 6:51 PM EDTGender IdentityNot on fileSexual OrientationNot on file documented as of this encounter Last Filed Vital Signs Vital SignReadingTime TakenCommentsBlood Ufjpjspt817/6010/ 3:28 PM EDT Pulse--Temperature--Respiratory Rate--Oxygen Saturation--Inhaled Oxygen Concentration--Fsdasa34.6 kg (168 lb 12.8 oz)08/25/2025 3:28 PM [...] Size of fetus inconsistent with dates, antepartum ([facility]) 08/10/2025 Resolved Ambulatory Problems Diagnosis [...] nursing note reviewed. Exam conducted with a factory manager present. Vitals: Estimated body mass index is 28.97 kg/m?? as calculated from the following: Height as of 04/05/25: 5' 4 . Weight as of this encounter: 168 lb 12.8 oz. BP: 118/60 Patient's last menstrual period was 01/07/2025. Assessment/Plan ICD-10-CM 1. Third trimester ([facility]) Z34.93 2. 32 weeks gestation of ([facility]) Z3A.32 POCT urinalysis dipstick manually [...] Plan of Treatment DateTypeDepartmentCare Team (Latest Contact Info)Yfvnjddqapk82/18/2025 9:20 AM ESTRoutine [facility] [address] [place] [phone] TulioAlex upton DO [address] [place] [address] NameTypePriorityAssociated DiagnosesOrder ScheduleCBC and differentialLabRoutine 32 weeks gestation of ([facility]) Ordered: 08/25/2025documented as of this encounter Procedures Procedure NamePriorityDate/TimeAssociated DiagnosisCommentsPOCT URINALYSIS MJSOGAZYKwkafal61/30/2025 3:40 PM EDT 32 weeks gestation of ([facility]) documented in this encounter Results * [...] without hematuria, site unspecified- Primary Third trimester ([facility] state, incidental 32 weeks gestation of ([facility]) documented in this encounter Care Teams Team MemberRelationshipSpecialtyStart DateEnd Date Eliana Flanagan MD [address] [place] [address] PCP - GeneralFamily Medicine03/04/23documented as of this encounter
--- OUTSIDE RECORDS SUMMARY | 2025-08-26 10:51 | XMS_ITS | Clinical Summary ---
Author Organization [facility] Address [address] [place] [address] Care Team Providers Care Entry Level Accountant Name Role Phone Eliana Flanagan MD Primary Care Provider [phone] Allergies Active AllergyReactionsCriticalityNoted NnmbTymdytxxIcpfybxexxzZtwyfua44/12/2024 Medications MedicationSigDispense QuantityRefillsLast FilledStart DateEnd DateStatus MV-Min-Fe [...] mg) by mouth Daily 30 capsule 5Active cephalexin (Keflex) 500 MG capsule Indications:Urinary tract infection without hematuria, site unspecifiedTake 1 capsule (500 mg) by mouth in the morning and 1 capsule (500 mg) in the evening and 1 capsule(500 mg) before bedtime. Do all this for 7 days. 21 capsule 515Active Active Problems ProblemNoted DateDiagnosed DateSize of fetus inconsistent with dates, antepartum ([facility])08/10/2025PCOS (polycystic ovarian syndrome)11/12/2024Current severe episode of major depressive disorder without psychotic features without prior yhlmazc2112/30/2023Exercise-induced gmaotc1812/30/2023atellofemoral syndrome of right knee12/30/2023Estimated Date of LpjspzgtPijyhrvkBrv65/19/2025Based on last menstrual period of 01/07/2025 Encounters DateTypeDepartmentCare RypbJhxvscbtbas66/30/2025 3:20 PM EDTRoutine [facility] [place] [address] Munira Yu PA Urinary tract infection without hematuria, site unspecified (Primary Dx); Third trimester ([facility]); 32 weeks gestation of ([facility])08/25/2025amboo [place] [address] Munira Yu PA 08/22/2025linisync Result Encounter NOMS External Department Unsolicited Alex Antunez, DO 08/22/2025Telephone [facility] AGUSTIN [address] [place] [address] Anuja Green LPN 08/19/2025linisync Result Encounter NOMS External Department Unsolicited Alex Antunez, DO 08/11/2025 3:00 PM EDTRoutine [facility] [address]USTIN [address] [facility] [place] [address] Munira Yu PA Third trimester ([facility]); 30 weeks gestation of ([facility])08/11/2025 2:30 PM EDTAncillary Procedure [facility] [address]USTIN [address] [facility] [place] [address] Second trimester ([facility]); Cystitis; Size of fetus inconsistent with dates, antepartum ([facility])08/05/2025Patient Outreach [facility] [place] [address] [place] [phone] Munira Degroot LPN 08/04/2025bstract [facility] [address] [place] [address] Munira Degroot LPN 07/27/2025 1:50 PM EDTRoutine N[facility] AGUSTIN [address] [facility] [address] [address] Darlene Olmstead, MARION Anemia, unspecified type (Primary Dx); 28 weeks gestation of ([facility]); Third trimester ([facility]); Elevated glucose tolerance test07/27/2025amb flowsheet N[facility] [place] OBJIMMIEN [address] [place] [address] Darlene Olmstead NP 07/26/2025Telephone [facility] [place] AGUSTIN [address] [facility] [address] Shani Hinds MA 07/25/2025linisync Result Encounter NOMS External Department Unsolicited Provider, Generic External Data 07/13/2025 3:20 PM EDTRoutine [facility] [place] AGUSTIN [address] [facility] [place] [address] Alex Antunez DO Cystitis (Primary Dx); 26 weeks gestation of ([facility]); Second trimester ([facility]); Gastroesophageal reflux in ([facility]); Size of fetus inconsistent with dates, antepartum ([facility])07/13/2025[facility] flowsheet [facility] [place] [address]USTIN [address] [place] [address] Alex Antunez DO 06/15/2025 1:50 PM EDTRoutine N[facility] [place] AGUSTIN [address] [place] [address] Alex Antunez DO 22 weeks gestation of ([facility]); Second trimester ([facility]); Diabetes mellitus mptghihcp34/20/2025amboo flowsheet [facility] AGUSTIN [address] [facility] [place] [address] Alex Antunez, DO 06/06/2025bstract [facility] OBGYN [address] [facility] [address] Alex Antunez, DO 06/02/2025bstract [facility]BG[facility] [address] [facility] [address] Alex Antunez, DO 05/31/2025 8:30 AM EDTAncillary Procedure [facility] OBGYN [address] [facility] [place] [address] from Last 3 Months Family History RelationNameStatusCommentsFatherAliveMotherAlive Social History Tobacco UseTypesPacks/DayYears UsedDateSmoking Tobacco: NeverPassive Smoke Exposure: NeverSmokeless Tobacco: Never Tobacco Cessation:Counseling Given: Yes Alcohol UseStandard Drinks/WeekCommentsNever0 (1 standard drink = 0.6 oz pure alcohol)PHQ-2AnswerDate RecordedPatient Health Questionnaire-2 Avgdj787 Estimated Date of UsitktvsLjvduavzBzb86/19/2025ased on last menstrual period of 01/07/2025Sex and Gender InformationValueDate RecordedSex Assigned at BirthNot on fileLegal EgxUxzqlv03/15/2023 6:51 PM EDTGender IdentityNot on file Sexual OrientationNot on file Last Filed Vital Signs Vital SignReadingTime TakenCommentsBlood Kszhumnz680/6010 3:28 PM EDT Uetsq643804/05/2025 11:07 AM EDTTemperature--Respiratory Zqcz4529 11:07 AM EDTOxygen Jjdpzruzmo23%04/05/2025 11:07 AM EDTInhaled Oxygen Concentration-- Cepizn32.6 kg (168 lb 12.8 oz)08/25/2025 3:28 PM ILALtaukx964.6 cm (5' 4 ) 04/05/2025 11:07 AM EDTBody Mass Index28.9704/05/2025 11:07 AM EDT Plan of Treatment DateTypeDepartmentCare Team (Latest Contact Info)Xcarmrmralo17/18/2025 9:20 AM ESTRoutine N[facility]BG[facility] [address] [facility] [phone] Alex Antunez DO [address] [place] [address] Health MaintenanceDue DateLast DoneCommentsMMR Vaccines (1 of 1 - Standard series)2005DTaP/Tdap/Td Vaccines (1 - Tdap)2011Varicella Vaccines (1 of 2 - 13+ 2-dose series)2017HPV Vaccines (1 - 3-dose series)2019 Meningococcal B Vaccine (1 of 2 - Standard)2020Hepatitis B Vaccines (1 of 3 - 19+ 3-dose series)3Pneumococcal Vaccine: Pediatrics (0 to 5 Years) and At-Risk Patients (6 to 64 Years) (1 of 2 - PCV)3COVID-19 Vaccine (1 - season)2025Influenza Vaccine (#1)2025HIB VaccinesAged Out No longer eligible based on patient's age to complete this topicHepatitis A VaccinesAged OutNo longer eligible based on patient's age to complete this topic IPV VaccinesAged OutNo longer eligible based on patient's age to complete this topicMeningococcal VaccineAged OutNo longer eligible based on patient's age to complete this topicRotavirus VaccinesAged OutNo longer eligible based on patient's age to complete this topic Procedures Procedure NamePriorityDate/TimeAssociated DiagnosisCommentsPOCT URINALYSIS XJEBDGELDbpqnwd23/30/2025 3:40 PM EDT 32 weeks gestation of ([facility]) GLUCOSE TOLERANCE 3 WSCNKgqksvv86/27/2025 8:44 AM EDT URINE CULTURE, DUBOZFMBnkalqg52/24/2025 12:18 PM EDT TB[facility] URINE MICROSCOPIC XWUXJsvaglf85/24/2025 12:18 PM EDT [facility] UA (CLEAN/CATCH) 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Riumjnv6908/19/2025 12:18 PM EDT US OB FOLLOW UP TRANSABDOMINAL GADLNGNBExtidvt66/17/2025 12:55 PM EDT Second trimester ([facility]) Cystitis Size of fetus inconsistent with dates, antepartum ([facility]) POCT URINALYSIS IJCIHVQVXhmydok64/16/2025 3:21 PM EDT Third trimester ([facility]) POCT URINALYSIS ZDRUERMMHomlumy49/01/2025 2:06 PM EDT 28 weeks gestation of ([facility]) GLUCOSE 1 LSPQMyipgdd76/29/2025 1:17 PM EDT ALL CBC WITH AUTO SMRZTmznuxm50/29/2025 1:17 PM EDT URINARY TRACT INFECTION (HTRX)Facccni5407/13/2025 4:23 PM EDT POCT URINALYSIS MQVYIAOYSuryngo94/17/2025 3:34 PM EDT 26 weeks gestation of ([facility]) Second trimester ([facility]) POCT URINALYSIS UGGCFDFZRqdprmo32/20/2025 1:59 PM EDT 22 weeks gestation of ([facility]) Second trimester ([facility]) US OB 14+ WEEKS ANATOMY RQMJBqpbdhr99/05/2025 9:06 AM EDT Screening, , for anatomic survey ([facility]) from Last 3 Months Results * (ABNORMAL) POCT urinalysis dipstick manually resulted (08/25/2025 3:40 PM EDT) Only the most recent of5 resultswithin the time period is included. ComponentValueRef RangeTest MethodAnalysis TimePerformed AtPathologist Signature Color, UAYellowClarity, UAClearGlucose, UANegativeNegative - 2000(110) ++++ mg/dLBilirubin, UANegativeNegative - 4(70) +++ mg/dLKetones, UANegativeNegative - 160(16) ++++ mg/dLSpec Grav, UA1.0101 - 1.03Blood, UANegativeNegative - 50 Tarun/mcLpH, UA6.05 - 9Protein, UATraceNegative - 2000(20) ++++ mg/dLUrobilinogen, UA2.00.2 - 12 mg/dLLeukocytes, UA1+Negative - 500+++ Joelle/mcLNitrite, UANegative Negative - PositiveSpecimen (Source)Anatomical Location / LateralityCollection Method / VolumeCollection TimeReceived WpkyZcpid27/30/2025 3:40 PM EDT Narrative Authorizing ProviderResult TypeResult Arturo Olmstead [facility] OF CARE TEST ENTER/EDIT ORDERABLESFinal Result * GLUCOSE TOLERANCE 3 HOUR (08/22/2025 8:44 AM EDT)ComponentValueRef RangeTest MethodAnalysis TimePerformed AtPathologist SignatureGLUCOSE TOLERANCE 3 HOUR mg/dLTBHComment: GLU FAST 75 (<95) Col: 08/22/25 0844 ?? GLU 1HR ? () ?? Col: 08/22/25 0928 ?? GLU 2HR ? () ?? Col: 08/22/25 1028 ?? GLU 3HR ? () ?? Col: 08/22/25 1128 Specimen (Source)Anatomical Location / LateralityCollection Method / Volume Collection TimeReceived Time08/22/2025 8:44 AM EDT1 8:45 AM EDT Narrative CLINISYNC - 08/22/2025 3:54 PM EDT Authorizing ProviderResult TypeResult StatusAlex SABILLON BLOOD ORDERABLES Final ResultPerforming OrganizationAddressCity/State/ZIP CodePhone Number CLINISYNC TB * (ABNORMAL) URINE CULTURE, ROUTINE (08/19/2025 12:18 PM EDT)ComponentValueRef RangeTest MethodAnalysis TimePerformed AtPathologist SignatureURINE CULTURE, ROUTINE ??Urine Culture, Routine TBHURINE CULTURE, ROUTINEGrowth observed. Further testing to rule out possible pathogen(s)TBHURINE CULTURE, ROUTINEis in progress.TBHURINE CULTURE, ROUTINE Organism: Coag negative Staph species :TBHURINE CULTURE, ROUTINE*ABNORMAL*TBH URINE CULTURE, ROUTINEnot Staphylococcus saprophyticusTBHURINE CULTURE, ROUTINE Based on susceptibility to oxacillin this isolate would beTBHURINE CULTURE, ROUTINEsusceptible to:TBHURINE CULTURE, ROUTINE*Penicillinase-stable penicillins, such as:TBHURINE CULTURE, ROUTINECloxacillin, Dicloxacillin, NafcillinTBHURINE CULTURE, ROUTINE*Beta-lactam combination agents, such as:TBH URINE CULTURE, ROUTINEAmoxicillin-clavulanic acid, Ampicillin-sulbactam,TBHURINE CULTURE, ROUTINEPiperacillin-tazobactamTBHURINE CULTURE, ROUTINE*Oral cephems, such as:TBHURINE CULTURE, ROUTINECefaclor, Cefdinir, Cefpodoxime, Cefprozil, Cefuroxime,TBHURINE CULTURE, ROUTINECephalexin, LoracarbefTBHURINE CULTURE, ROUTINE*Parenteral cephems, such as:TBHURINE CULTURE, ROUTINECefazolin, Cefepime, Cefotaxime, Cefotetan, Ceftaroline,TBHURINE CULTURE, ROUTINE Ceftizoxime, Ceftriaxone, CefuroximeTBHURINE CULTURE, ROUTINE*Carbapenems, such as:TBHURINE CULTURE, ROUTINEDoripenem, Ertapenem, Imipenem, MeropenemTBHURINE CULTURE, ROUTINEMost isolates of Staphylococcus sp. produce a beta-TBHURINE CULTURE, ROUTINElactamase enzyme rendering them resistant toTBHURINE CULTURE, ROUTINEpenicillin. Please contact the laboratory ifTBHURINE CULTURE, ROUTINE penicillin is being considered for therapy.TBHURINE CULTURE, ROUTINEGreater than 100,000 colony forming units per mLTBHURINE CULTURE, ROUTINECoag negative Staph speciesTBHURINE CULTURE, ROUTINE ??O:CNSNSS Isolated TBHURINE CULTURE, ROUTINEPerformed at: - [facility] DublinTBHURINE CULTURE, [id number] [place], [place] [id number] CULTURE, ROUTINELab Director: Nate Don PhD, Phone: [phone] CULTURE, ROUTINE Organism: ??1.1 Antibiotic ? Interpretation ? LASHANDA ? Status TBHURINE CULTURE, ROUTINECiprofloxacin S F(S)TBHURINE CULTURE, ROUTINEGentamicin S F(S)TBHURINE CULTURE, ROUTINELevofloxacin S F(S)TBHURINE CULTURE, ROUTINE Linezolid S F(S)TBHURINE CULTURE, ROUTINEMoxifloxacin S F(S)TBHURINE CULTURE, ROUTINENitrofurantoin S F(S)TBHURINE CULTURE, ROUTINEOxacillin S F(S)TBHURINE CULTURE, ROUTINERifampin S F(S)TBHURINE CULTURE, ROUTINETetracycline S F(S)TBH URINE CULTURE, ROUTINETrimethoprim/Sulfamethoxazole S F(S)TBHURINE CULTURE, ROUTINEVancomycin S F(S)TBHSpecimen (Source)Anatomical Location / Laterality Collection Method / VolumeCollection TimeReceived Time08/19/2025 12:18 PM EDT 08/19/2025 1:24 PM EDT Narrative CLINISYNC - 08/23/2025 12:07 AM EDT Authorizing ProviderResult TypeResult StatusCorey Tulio DOLAB BLOOD ORDERABLES Final ResultPerforming OrganizationAddressCity/State/ZIP CodePhone Number CLINISYNC TBH * (ABNORMAL) [facility] URINE MICROSCOPIC ONLY (08/19/2025 [...] DOCLINISYNCFinal Result Performing OrganizationAddressCity/State/ZIP CodePhone Number SYDNEY NICE * (ABNORMAL) TBH UA (CLEAN/CATCH) 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 (08/19/2025 12:18 PM EDT) ComponentValueRef RangeTest MethodAnalysis TimePerformed AtPathologist SignatureCOLOR URINELT. YELLOWYELLOWTBHCLARITY URINECLEARCLEARTBHSPECIFIC GRAVITY URINE1.0101.005 - 1.025TBHPH URINE7.05.0 - 9.0TBHPROTEIN URINENEGATIVE NEG/TRACE mg/dLTBHGLUCOSE URINE UANEGATIVENEGATIVE mg/dLTBHBILIRUBIN URINE NEGATIVENEGATIVETBHKETONES URINENEGATIVENEGATIVE mg/dLTBHBLOOD URINENEGATIVE NEGATIVETBHNITRITE URINENEGATIVENEGATIVETBHUROBILINOGEN URINE0.20.2 - 1.0 EU/dLTBHLEUKOCYTE ESTERASE URINESMALL(A)NEGATIVETBHURINE MICROSCOPIC INDICATED YESTBHSpecimen (Source)Anatomical Location / LateralityCollection Method / VolumeCollection TimeReceived Time08/19/2025 12:18 PM EDT1 1:24 PM EDT Narrative CLINISYNH - 08/19/2025 1:32 PM EDT Authorizing ProviderResult TypeResult StatusCorey Tulio DOCLINISYNCFinal Result Performing OrganizationAddressCity/State/ZIP CodePhone Number SYDNEY NICE * US OB follow up transabdominal approach [...] BY: Adolfo Camp MD Authorizing ProviderResult TypeResult Arturo Olmstead NPIMG OB US PROCEDURESFinal Result * (ABNORMAL) GLUCOSE 1 HOUR (07/25/2025 1:17 PM EDT)ComponentValueRef RangeTest MethodAnalysis TimePerformed AtPathologist SignatureGLUCOSE 1 DEAE595(H)<130 mg/dLTBHSpecimen (Source)Anatomical Location / LateralityCollection Method / VolumeCollection TimeReceived Time07/25/2025 1:17 PM EDT07/25/2025 1:19 PM EDT Narrative CLINISYNC - 07/25/2025 1:47 PM EDT Authorizing ProviderResult TypeResult StatusCoredoreen SABILLON BLOOD ORDERABLES Final ResultPerforming OrganizationAddressCity/State/ZIP CodePhone Number CLINISYNC TBH * (ABNORMAL) ALL CBC WITH AUTO DIFF (07/25/2025 1:17 PM EDT)ComponentValueRef RangeTest MethodAnalysis TimePerformed AtPathologist SignatureTBH WBC7.14.0 - 11.0 10 3/uLTBHTBH RBC3.97(L)4.20 - 5.40 10 6/uLTBHTBH HGB10.4(L)12.0 - 16.0 g/dLTBHTBH HCT32.0(L)36.0 - 48.0 %TBHTBH MCV80.6(L)81.0 - 99.0 fLTBHTBH MCH 26.2(L)26.7 - 34.0 pgTBHTBH MCHC32.529.9 - 35.2 g/dLTBHTBH RDW14.311.0 - 15.0 %TBHTBH MDQ558572 - 450 10 3/uLTBHTBH MPV10.99.5 - 13.5 [...] DOCLINISYNCFinal Result Performing OrganizationAddressCity/State/ZIP CodePhone Number CLINISYNC [facility] * URINARY TRACT INFECTION (HTRX) (07/13/2025 4:23 PM EDT)ComponentValueRef Range Test MethodAnalysis TimePerformed AtPathologist Angel Luis SORENSENII019.961 - 24.689 [facility]07/15/2025 7:29 AM EDTHealthTrackRx at [facility] ACINETOBACTER BAUMANIINot Pzmohxgg04.961 - 24.689 ppm07/15/2025 7:29 AM EDT [facility] at LabPortCITROBACTER MZKITYSJ434.000 - 32.015 ppm07/15/2025 7:29 AM EDTHealthTrackRx at LabPortCITROBACTER FREUNDIINot Zwgayhhr24.000 - 32.015 ppm07/15/2025 7:29 AM EDTHealthTrackRx at LabPortENTEROBACTER AEROGENES, OSVVGCP157.000 - 32.290 ppm07/15/2025 7:29 AM EDTHealthTrackRx at LabPortENTEROBACTER AEROGENES, CLOACAENot Qvrxecor66.000 - 32.290 ppm 07/15/2025 7:29 AM EDTHealthTrackRx at LabPortENTEROCOCCUS FAECALIS, FAECIUM0 26.000 - 33.043 ppm07/15/2025 7:29 AM EDTHealthTrackRx at LabPortENTEROCOCCUS FAECALIS, FAECIUMNot Ppuzqzsz72.000 - 33.043 ppm07/15/2025 7:29 AM EDT [facility] at LabPortESCHERICHIA CKWF857.000 - 28.500 ppm07/15/2025 7:29 AM EDTHealthTrackRx at LabPortESCHERICHIA COLINot Fnfrhnpg47.000 - 28.500 ppm 07/15/2025 7:29 AM EDTHealthTrackRx at LabPortKLEBSIELLA PNEUMONIAE, OXYTOCA0 23.000 - 31.865 ppm07/15/2025 7:29 AM EDTHealthTrackRx at LabPortKLEBSIELLA PNEUMONIAE, OXYTOCANot Zkqbsfyq19.000 - 31.865 ppm07/15/2025 7:29 AM EDT [facility] at LabPortMORGANELLA RTKPCUGV849.961 - 24.689 ppm07/15/2025 7:29 AM EDTHealthTrackRx at LabPortMORGANELLA MORGANIINot Ldtmwsao06.961 - 24.689 ppm07/15/2025 7:29 AM EDTHealthTrackRx at LabPortPROTEUS MIRABILIS, VULGARIS0 23.000 - 28.500 ppm07/15/2025 7:29 AM EDTHealthTrackRx at LabPortPROTEUS MIRABILIS, VULGARISNot Vewdoott71.000 - 28.500 ppm07/15/2025 7:29 AM EDT [facility] at LabPortPSEUDOMONAS PKPPXOQLTW758.000 - 31.801 ppm07/15/2025 7:29 AM EDTHealthTrackRx at LabPortPSEUDOMONAS AERUGINOSANot Irzimdlu86.000 - 31.801 ppm07/15/2025 7:29 AM EDTHealthTrackRx at LabPortSTAPHYLOCOCCUS AUREUS0 26.000 - 31.595 ppm07/15/2025 7:29 AM EDTHealthTrackRx at [facility] STAPHYLOCOCCUS AUREUSNot Mdxovzgz56.000 - 31.595 ppm07/15/2025 7:29 AM EDT [facility] at LabPortSTREPTOCOCCUS AGALACTIAE (GROUP B STREP)026.000 - 32.435 ppm07/15/2025 7:29 AM EDTHealthTrackRx at LabPortSTREPTOCOCCUS AGALACTIAE (GROUP B STREP)Not Lgjbvkhz15.000 - 32.435 ppm07/15/2025 7:29 AM EDTHealthTrackRx at LabPortCANDIDA ALBICANS, PARAPSILOSIS, WQWWGQDUBC021.000 - 30.347 ppm07/15/2025 7:29 AM EDTHealthTrackRx at LabPortCANDIDA ALBICANS, PARAPSILOSIS, TROPICALISNot Harllxlq53.000 - 30.347 ppm07/15/2025 7:29 AM EDT [facility] LabPortCANDIDA SLORNHWQ038.000 - 31.618 ppm07/15/2025 7:29 AM EDTHealthTrackRx at LabPortCANDIDA GLABRATANot Kjwdhwoe46.000 - 31.618 ppm 07/15/2025 7:29 AM EDTHealthTrackRx at LabPortCANDIDA JEBYRR165.000 - 30.873 ppm07/15/2025 7:29 AM EDTHealthTrackRx at LabPortCANDIDA KRUSEINot Detected 23.000 - 30.873 ppm07/15/2025 7:29 AM EDTHealthTrackRx at LabPortSERRATIA GBVDYWMRFT325.000 - 31.581 ppm07/15/2025 7:29 AM EDTHealthTrackRx at [facility] SERRATIA MARCESCENSNot Ysohxmfa08.000 - 31.581 ppm07/15/2025 7:29 AM EDT [facility] at LabRivers[facility] CorporationSTREPTOCOCCUS PYOGENES (GROUP A STREP)019.961 - 24.689 ppm07/15/2025 7:29 AM EDTHealthTrackRx at LabRiverside Hospital CorporationSTREPTOCOCCUS PYOGENES (GROUP A STREP)Not Rvnhnjsw00.961 - 24.689 ppm07/15/2025 7:29 AM EDTHealthTrackRx at [facility]ertonSTAPHYLOCOCCUS EPIDERMIDIS, HAEMOLYTICUS, LUGDUNENSIS, SAPROPHYTICUS (WIOFO801.961 - 24.689 ppm07/15/2025 7:29 AM EDTHealthTrackRx at [facility] STAPHYLOCOCCUS EPIDERMIDIS, HAEMOLYTICUS, LUGDUNENSIS, SAPROPHYTICUS (URINANot Rpjfmjul11.961 - 24.689 ppm07/15/2025 7:29 AM EDTHealthTrackRx at [facility] STAPHYLOCOCCUS EPIDERMIDIS, HAEMOLYTICUS, LUGDUNENSIS, SAPROPHYTICUS (URINA0 19.961 - 24.689 ppm07/15/2025 7:29 AM EDTHealthTrackRx at [facility] STAPHYLOCOCCUS EPIDERMIDIS, HAEMOLYTICUS, LUGDUNENSIS, SAPROPHYTICUS (URINANot Mbopfzui54.961 - 24.689 ppm07/15/2025 7:29 AM EDTHealthTrackRx at [facility] Specimen (Source)Anatomical Location / LateralityCollection Method / Volume Collection TimeReceived HwuzDdezi87/17/2025 4:23 PM EDT07/15/2025 1:30 AM EDT Narrative Authorizing ProviderResult TypeResult StatusDarlene Olmstead NPLAB BLOOD ORDERABLESFinal ResultPerforming OrganizationAddressCity/State/ZIP CodePhone Number [facility] [address] [address] * US OB 14+ weeks anatomy scan (05/31/2025 9:06 [...] October 14, 2025. ? Procedure Note Adolfo Cmap MD - 05/31/2025 FINDINGS: A single, live [...] Camp MD Authorizing ProviderResult TypeResult StatusAmy Gigi GREENBERG OB US PROCEDURES Final Result from Last 3 Months Insurance Care Teams Team MemberRelationshipSpecialtyStart DateEnd Date Eliana Flanagan MD [address] [facility] [address] [place] [address] PCP - GeneralFamily Medicine03/04/23
--- OUTSIDE RECORDS SUMMARY | 2025-08-26 10:51 | XMS_ITS | Encounter Summary ---
Author Organization [facility] Address [address] [facility] [place] [address] Care Team Providers Care Interpretive Naturalist Name Role Phone Eliana Marquis MD Primary Care Provider [phone] Nicole Hernandes CASE MANAGEMENT SOCIAL WORKER Unavailable [phone] Encounter Details DateTypeDepartmentCare Team (Latest Contact Info)Reddvrgarfc68/20/2024Clinisync Result Encounter [facility] External Department Unsolicited Provider, Generic External Data Social History Tobacco UseTypesPacks/DayYears UsedDateSmoking Tobacco: NeverPHQ-2AnswerDate RecordedPatient Health Questionnaire-2 Ugfte980CommentsUnknown Sex and Gender InformationValueDate RecordedSex Assigned at BirthNot on file Legal QahJcgehs88/15/2023 6:51 PM EDTGender IdentityNot on fileSexual OrientationNot on filedocumented as of this encounter Functional Status * Over the past 2 weeks, how often have you been bothered by any of the following problems?QuestionAnswerDate of AssessmentAuthorLittle interest or pleasure in doing thingsNot at all04/05/2025 11:03 AM Homero NAVARRETEeling down, depressed, or hopelessNot at all04/05/2025 11:03 AM ALY NAVARRETE Patient Health Questionnaire-2 Gxgic250 11:03 AM ALY NAVARRETE documented as of this encounter Plan of Treatment DateTypeDepartmentCare Team (Latest Contact Info)Brvevydfoqa84/18/2025 9:20 AM ESTRoutine [facility] De[facility] AGUSTIN [address] [place] [address] [place] [address] Shania Antunez, DO [address] [facility] [place] [address] documented as of this encounter Procedures Procedure NamePriorityDate/TimeAssociated DiagnosisCommentsUS PELVIS W/ EPVGYXUZEYGC65/20/2024 10:02 PM EDT ALL LUTEINIZING DJLELEQRvtabno23/20/2024 2:04 PM EDT ALL FOLLICLE STIMULATING CHFAJHRIeilepw02/20/2024 2:04 PM EDT ALL DHEA UIVUEYWAnometp69/20/2024 2:04 PM EDT ALL YUMKDICMRYIYDHCUKDMUIPAbgzmkp77/20/2024 2:04 PM EDT ALL ANTI-MULLERIAN NJPHNSHIrszhsh77/20/2024 2:04 PM EDT documented in this encounter Results * US PELVIS W/ TRANSVAGINAL (06/15/2024 10:02 PM EDT)Anatomical RegionLaterality ModalityOtherSpecimen (Source)Anatomical Location / LateralityCollection Method / VolumeCollection TimeReceived Time06/15/2024 10:02 PM EDT Narrative 06/15/2024 10:04 PM EDT [facility] ?[address] ? [place] [address] ? Ultrasound Report ? Signed ? Patient: BLAS,DANETTE B ?MR#: [id number] ?? : 2005 ?Acct:[id number] ?? Age/Sex: 18 / F ?ADM Date: 06/15/24 ?? Loc: [facility] ? Attending Dr: Shania Antunez D.O. ? Ordering Physician: Shania Antunez D.O. ?? Date of Service: 06/15/24 ?? Procedure(s): US pelvis w/ transvaginal ?? Accession Number(s): [id number] ? cc: ELIANA MARQUIS ; Shania Antunez D.O. ? [facility] ? [address] ? [place] [address] ? Patient Name: ?? DANETTE B BLAS ? MRN: [facility]:[id number] ? date: 2005 ?Sex: F ?? Assigned Patient Location: [facility] ?? Current Patient Location: LAB ?? Accession/Order Number: [id number] ?? Exam Date: 06/15/2024 ??13:11 ?Report Date: 06/15/2024 ??22:02 ? At the request of: ?? SHANIA ??TULIO ? Procedure: ??US pelvis w/ transvaginal ? EXAM: US Pelvis Transvaginal ? CLINICAL INDICATION: POLYCYSTIC OVARIAN DISEASE ? TECHNIQUE: Real-time transvaginal pelvic ultrasound with image documentation. ?? Transvaginal imaging was used for better evaluation of the endometrium and ?? adnexa. ? COMPARISON: No relevant prior studies available. ? FINDINGS: ?? UTERUS/CERVIX: Unremarkable. Normal endometrial stripe thickness. No ?? myometrial ?? mass. ?? RIGHT OVARY: There are approximately 5 small ovarian follicles. Normal blood ?? flow. ?? LEFT OVARY: 2.6 cm left ovarian involuting dominant follicle. No torsion ?? FREE FLUID: No free fluid. ? US/US pelvis w/ transvaginal ?? IMPRESSION: ?? Relative physiologic appearance of the ovaries without overt stigmata of PCOS ? Electronically authenticated by: CLARK ??MARCO ?? Date: 06/15/2024 ??22:02 ? Dictated By: ?Clark Ly M.A. ? Signed By: ?06/15/242203 ? DD/ 01 ? TD/TT: ? Kaiako Kura Tuarua: Procedure Note Radiology, Radiologist, MD - 06/15/2024 [place] [address] Ultrasound Report Signed Patient: DANETTE BLAS BMR#: [id number] : 2005Acct:[id number] Age/Sex: 18 / FADM Date: 06/15/24 Loc: [facility] Attending Dr: Shania Antunez D.O. Ordering Physician: Shania Antunez D.O. Date of Service: 06/15/24 Procedure(s): US pelvis w/ transvaginal Accession Number(s): [id number] cc: ELIANA MARQUIS ; Shania Antunez D.O. [place] [address] Patient Name: DANETTE BLAS MRN: [facility]:[id number] date: 2005 Sex: F Assigned Patient Location: [facility] Current Patient Location: LAB Accession/Order Number: [id number] Exam Date: 06/15/2024 13:11 Report Date: 06/15/2024 [...] Ly M.A. Signed By:06/15/242203 DD/ 01 TD/TT: Kaiako Kura Tuarua: Authorizing ProviderResult TypeResult StatusGeneric External Data Provider [facility] IMAGINGFinal Result * ALL DEHYDROEPIANDROSTERONE (06/15/2024 2:04 PM EDT)ComponentValueRef RangeTest MethodAnalysis TimePerformed AtPathologist SignatureDHEA, [id number] - 491 ng/dLTBHComment: ? Age ?1 - ??5 years ?0 - ??67 ?6 - ??7 years ?0 - 110 ?8 - 10 years ?0 - 185 ? 11 - 12 years ?0 - 201 ? 13 - 14 years ?0 - 318 ? 15 - 16 years ?? 39 - 481 ? 17 - 19 years ?? 40 - 491 ? 20 - 50 years ?? 31 - 701 >50 years 21 - 402 This test was developed and its performance characteristics determined by [employer]. It has not been cleared or approved by the Food and Drug Administration. Performed at: ?? - [facility] ??[id number] Vice President Of Manufacturing: Eliud Rodriguez MD, Phone: ??[phone] Specimen (Source)Anatomical Location / LateralityCollection Method / Volume Collection TimeReceived Time06/15/2024 2:04 PM EDT06/15/2024 2:06 PM EDT Narrative CLINISYNC - 06/21/2024 5:08 PM EDT Authorizing ProviderResult TypeResult StatusCorey Tulio DOCLINISYNCFinal Result Performing OrganizationAddressCity/State/ZIP CodePhone Number [facility] * ALL ANTI-MULLERIAN HORMONE (06/15/2024 2:04 PM EDT)ComponentValueRef RangeTest MethodAnalysis TimePerformed AtPathologist SignatureANTI-MULLERIAN HORMONE (AMH)2.79. ng/mLTBHComment: For assays employing antibodies, the possibility exists for interference by heterophile antibodies in the samples.1 1.Gracie Hernandez ??Interferences in Immunoassays - still a threat. Clin. Chem. 2000; 46: 3460-6039. This test was developed and its performance characteristics determined by [employer]. It has not been cleared or approved by the Food and Drug Administration. Reference Range: Females 7 - 19y: 1.05 - 12.86 Median 5.23 Circulating AMH levels change during pubertal development: male levels decrease female levels increase with sexual development. Females at risk of polycystic ovarian syndrome (PCOS) may exhibit elevated serum AMH concentrations. ?? AMH levels from PCOS patients may be 2 to 5 fold higher than age-appropriate reference interval values. Granulosa cell tumors of the ovary may secrete AMH along with other tumor markers. ??Elevated AMH is not specific for malignancy, and the assay should not be used exclusively to diagnose or exclude an AMH-secreting ovarian tumor. Performed at: ??[facility] [address] [place] [address] ??[id number] Vice President Of Manufacturing: Burke Mackey MD, Phone: ??[phone] Specimen (Source)Anatomical Location / LateralityCollection Method / Volume Collection TimeReceived Time06/15/2024 2:04 PM EDT06/15/2024 2:06 PM EDT Narrative CLIN[facility]NC - 06/18/2024 12:07 AM EDT Authorizing ProviderResult TypeResult StatusCorey Tulio DOCLINISYNCFinal Result Performing OrganizationAddressCity/State/ZIP CodePhone Number [facility] * ALL FOLLICLE STIMULATING HORMONE (06/15/2024 2:04 PM EDT)ComponentValueRef RangeTest MethodAnalysis TimePerformed AtPathologist SignatureFSH4.6. mIU/mL TBHComment: ? Adult Female ? Range ?Follicular phase ?3.5 - ??12.5 ?Ovulation phase ? 4.7 - ??21.5 ?Luteal phase ?1.7 - ?? 7.7 ?Postmenopausal ? 25.8 - 134.8 Performed at: ??CB - [facility] [address], [place], [place] ??[id number] Vice President Of Manufacturing: Nate Don PhD, Phone: ??[phone] Specimen (Source)Anatomical Location / LateralityCollection Method / Volume Collection TimeReceived Time06/15/2024 2:04 PM EDT06/15/2024 2:06 PM EDT Narrative CLINISYNC - 06/16/2024 8:12 AM EDT Authorizing ProviderResult TypeResult StatusGeneric External Data Provider CLINISYNCFinal ResultPerforming OrganizationAddressCity/State/ZIP CodePhone Number [facility] * ALL LUTEINIZING HORMONE (06/15/2024 2:04 PM EDT)ComponentValueRef RangeTest MethodAnalysis TimePerformed AtPathologist SignatureLUTEINIZING HORMONE(LH)7.6 . mIU/mLTBHComment: ? Adult Female ?Range ?Follicular phase ?2.4 - ??12.6 ?Ovulation phase ?14.0 - ??95.6 ?Luteal phase ?1.0 - ??11.4 ?Postmenopausal ?7.7 - ??58.5 Specimen (Source)Anatomical Location / LateralityCollection Method / Volume Collection TimeReceived Time06/15/2024 2:04 PM EDT08/ 2:06 PM EDT Narrative CLINISYNC - 06/16/2024 8:12 AM EDT Authorizing ProviderResult TypeResult StatusGeneric External Data Provider CLINISYNCFinal ResultPerforming OrganizationAddressCity/State/ZIP CodePhone Number [facility] * ALL DHEA SULFATE (06/15/2024 2:04 PM EDT)ComponentValueRef RangeTest Method Analysis TimePerformed AtPathologist SignatureDHEA-SMELTGA741.0110.0 - 433.2 ug/dLTBHSpecimen (Source)Anatomical Location / LateralityCollection Method / VolumeCollection TimeReceived Time06/15/2024 2:04 PM EDT06/15/2024 2:06 PM EDT Narrative CLINISYNC - 06/16/2024 8:12 AM EDT Authorizing ProviderResult TypeResult StatusGeneric External Data Provider CLINISYNCFinal ResultPerforming OrganizationAddressCity/State/ZIP CodePhone Number [facility] documented in this encounter Visit Diagnoses Not on filedocumented in this encounter Care Teams Team MemberRelationshipSpecialtyStart DateEnd Date Eliana Marquis MD [address] [place] [address] [facility] - [facility]23 Nicole Hernandes NP [address] [place] [address] PCP - FFS State CPC10//documented as of this encounter
--- OUTSIDE RECORDS SUMMARY | 2025-08-26 10:51 | XMS_ITS | Encounter Summary ---
Author Organization [facility] Address [address] [facility] [place] [address] Care Team Providers Care Technical Support Representative Name Role Phone Eliana Flanagan MD Primary Care Provider [phone] Encounter Details DateTypeDepartmentCare Team (Latest Contact Info)Qvaednsfhhu69/24/2025linisync Result Encounter [facility] External Department Unsolicited Alex Antunez, DO [address] [place] [address] Social History Tobacco UseTypesPacks/DayYears UsedDateSmoking Tobacco: NeverPassive Smoke Exposure: NeverSmokeless Tobacco: NeverAlcohol UseStandard Drinks/WeekComments Never0 (1 standard drink = 0.6 oz pure alcohol)PHQ-2AnswerDate RecordedPatient Health Questionnaire-2 Jyhqz225Estimated Date of Delivery GgnirgqjTmp63/19/2025Based on last menstrual period of 01/07/2025Sex and Gender InformationValueDate RecordedSex Assigned at BirthNot on fileLegal SexFemale 01/08/2023 6:51 PM EDTGender IdentityNot on fileSexual OrientationNot on file documented as of this encounter Plan of Treatment DateTypeDepartmentCare Team (Latest Contact Info)Dwijhstiskg91/18/2025 9:20 AM ESTRoutine [facility] [place] [facility] [address] [facility] [place] [address] Alex Antunez DO [address] [place] [address] documented as of this encounter Procedures Procedure NamePriorityDate/TimeAssociated DiagnosisCommentsURINE CULTURE, NDDDAZJGwkzaem08/24/2025 12:18 PM EDT [facility] URINE MICROSCOPIC EBXKEnpytex40/24/2025 12:18 PM EDT [facility] UA (CLEAN/CATCH) DRAMATIC ARTS HISTORIAN/MICRO IF IND.Eqclpyn2908/19/2025 12:18 PM EDT documented in this encounter Results * (ABNORMAL) URINE CULTURE, ROUTINE (08/19/2025 12:18 [...] ??O:CNSNSS Isolated TBHURINE CULTURE, ROUTINEPerformed at: - [facility] ElmerTBHURINE CULTURE, [id number] [place], [place] [id number] CULTURE, ROUTINELab Director: Nate Don PhD, Phone: [phone] CULTURE, ROUTINE Organism: ??1.1 Antibiotic ? Interpretation [...] [facility]IN[facility]NC [facility] * (ABNORMAL) [facility] UA (CLEAN/CATCH) DRAMATIC ARTS HISTORIAN/MICRO IF IND. (08/19/2025 12:18 PM EDT) ComponentValueRef [...] MemberRelationshipSpecialtyStart DateEnd Date Eliana Flanagan MD [address] [facility] [address] [place] [address] PCP - GeneralFamily Medicine03/04/23documented as of this encounter
--- OUTSIDE RECORDS SUMMARY | 2025-08-26 10:52 | XMS_ITS | Encounter Summary ---
Author Organization [facility] Address [address] [facility] [place] [address] Care Team Providers Care Brush Washer Name Role Phone Eliana Flanagan MD Primary Care Provider Encounter Details DateTypeDepartmentCare Team (Latest Contact Info)Vaqflzscypg65/30/2025amboo flowsheet NOMKelley AGUSTIN [address] [place] [address] Munira Yu PA [address] [place], [facility] Social History Tobacco UseTypesPacks/DayYears UsedDateSmoking Tobacco: NeverPassive Smoke Exposure: NeverSmokeless Tobacco: NeverAlcohol UseStandard Drinks/WeekComments Never0 (1 standard drink = 0.6 oz pure alcohol)PHQ-2AnswerDate RecordedPatient Health Questionnaire-2 Qvdnq601Estimated Date of Delivery VfbhalvjBzj60/19/2025Based on last menstrual period of 01/07/2025Sex and Gender InformationValueDate RecordedSex Assigned at BirthNot on fileLegal SexFemale 01/08/2023 6:51 PM EDTGender IdentityNot on fileSexual OrientationNot on file documented as of this encounter Plan of Treatment DateTypeDepartmentCare Team (Latest Contact Info)Rwfaznkamqm82/18/2025 9:20 AM ESTRoutine [facility] Deion AGUSTIN [address] [place] [address] Alex Antunez DO [address] [facility] [place] [address] documented as of this encounter Visit Diagnoses Not on filedocumented in this encounter Care Teams Team MemberRelationshipSpecialtyStart DateEnd Date Eliana Flanagan MD [address] [facility] 110 [place] [address] PCP - GeneralFamily Medicine03/04/23documented as of this encounter
--- OUTSIDE RECORDS SUMMARY | 2025-08-26 10:52 | XMS_ITS | Encounter Summary ---
Author Organization [facility] Address [address] [place] [address] Care Team Providers Care Sales Person Name Role Phone Eliana Flanagan MD Primary Care Provider [phone] Encounter Details DateTypeDepartmentCare Team (Latest Contact Info)Kwhdhfeahtl66/27/2025Telephone [facility] [address] [place] [address] [place] [address] Anuja Green LPN Social History Tobacco UseTypesPacks/DayYears UsedDateSmoking Tobacco: NeverPassive Smoke Exposure: NeverSmokeless Tobacco: NeverAlcohol UseStandard Drinks/WeekComments Never0 (1 standard drink = 0.6 oz pure alcohol)PHQ-2AnswerDate RecordedPatient Health Questionnaire-2 Pngzf844Estimated Date of Delivery CngjbwxoBcl09/19/2025Based on last menstrual period of 01/07/2025Sex and Gender InformationValueDate RecordedSex Assigned at BirthNot on fileLegal SexFemale 01/08/2023 6:51 PM EDTGender IdentityNot on fileSexual OrientationNot on file documented as of this encounter Miscellaneous Notes * Telephone Encounter - Anuja Green LPN - 08/22/2025 1:07 PM EDT 1:07 pm Bettina from [facility] called and voiced that patient did not even finish glucola for 3 hour gtt. The bow stapler did not draw an A1c either. Please advise if patient just needs to be given order at next appointment for [id number]-ix-zikfix be start testing. Please advise--Thanks--SS documented in this encounter Plan of Treatment DateTypeDepartmentCare Team (Latest Contact Info)Xgtaxybamhp07/18/2025 9:20 AM ESTRoutine [facility] [address] [facility] [place] [address] Alex Antunez DO [address] [facility] [place] [address] documented as of this encounter Visit Diagnoses Not on filedocumented in this encounter Care Teams Team MemberRelationshipSpecialtyStart DateEnd Date Eliana Flanagan MD [address] [facility] [address] [place] [address] PCP - GeneralFamily Medicine03/04/23documented as of this encounter
--- OUTSIDE RECORDS SUMMARY | 2025-08-26 10:52 | XMS_ITS | Encounter Summary ---
Author Organization [facility] Address [address] [facility] [address] Care Team Providers Care Hogshead Packer Name Role Phone Eliana Flanagan MD Primary Care Provider [phone] Encounter Details DateTypeDepartmentCare Team (Latest Contact Info)Zosdqjommkw20/27/2025linisync Result Encounter [facility] External Department Unsolicited Alex Antunez, DO [address] [place] [address] Social History Tobacco UseTypesPacks/DayYears UsedDateSmoking Tobacco: NeverPassive Smoke Exposure: NeverSmokeless Tobacco: NeverAlcohol UseStandard Drinks/WeekComments Never0 (1 standard drink = 0.6 oz pure alcohol)PHQ-2AnswerDate RecordedPatient Health Questionnaire-2 Xnkkt440Estimated Date of Delivery MxqqvtdoPxb04/19/2025Based on last menstrual period of 01/07/2025Sex and Gender InformationValueDate RecordedSex Assigned at BirthNot on fileLegal SexFemale 01/08/2023 6:51 PM EDTGender IdentityNot on fileSexual OrientationNot on file documented as of this encounter Plan of Treatment DateTypeDepartmentCare Team (Latest Contact Info)Yazgfbdnpjf05/18/2025 9:20 AM ESTRoutine [facility] [place] [address] [facility] [place] [address] Alex Antunez DO [address] [place] [address] documented as of this encounter Procedures Procedure NamePriorityDate/TimeAssociated DiagnosisCommentsGLUCOSE TOLERANCE 3 FHHUVohzqad26/27/2025 8:44 AM EDT documented in this encounter Results * GLUCOSE TOLERANCE 3 HOUR (08/22/2025 8:44 [...] 08/22/2025 3:54 PM EDT Authorizing ProviderResult TypeResult StatusCorey Tulio DOLAB BLOOD ORDERABLES Final ResultPerforming OrganizationAddressCity/State/ZIP CodePhone Number [facility] documented in this encounter Visit Diagnoses Not on filedocumented in this encounter Care Teams Team MemberRelationshipSpecialtyStart DateEnd Date Eliana Flanagan MD [address] [place] [address] PCP - GeneralFamily Medicine03/04/23documented as of this encounter
--- OUTSIDE RECORDS SUMMARY | 2025-08-26 10:52 | XMS_ITS | Patient Health Record ---
Author Organization [facility] Address [address] [place] [address] Care Team Providers Care Audit Practice Intern Name Role Phone Bethany Wells Primary Care Provider Dr. Adolfo Reagan Unavailable [phone] Reason For Referral No Information Plan Of Treatment No Information Insurance Providers Payer Name Payer Address Payer Phone Subscriber Number Group Number Insured Name Patient Relationship to Insured Coverage Start Date Coverage End Date [employer] [place] [employer] [address] [address] [place] [address] [id number] JUNIOR TREJO DANETTE Self - patient is the insured 3 Dental [employer] [facility] [address] [place] [phone] [id number], lf - patient is the vdsuehi5111/27/2022zAnthem BCBS Medicaid-termed 11/26/22[address] [place] [id number] AYALA, lf - patient is the [id number] DQ [place]-termed 11/26/22[address] [place] [phone] [id number], lf - patient is the insured [facility] after [place]-termed 11/26/22[address] [place] [id number], AUTUMNSelf - patient is the [id number] [place] DQ Terminated 10/26/24 [address] [place] [id number] AYALA, Roland - patient is the [id number] Wrap [employer] [place] BCBS Termed [address] [place] [phone] [id number], AUTUMNSelf - patient is the evfbhdv4611/27/2022 09/25/2023
--- OUTSIDE RECORDS SUMMARY | 2025-08-26 10:55 | XMS_ITS | CCD ---
Author Organization [facility] CliniSywa Care Team Providers Care Patient Intake Coordinator Name Role Phone BENITEZ, DR MUNOZ Primary [...] ZIEBER, DR MELVIN Olmedo Consulting Unavailable Eliana Marquis MD Primary Care Provider Jose Antonio Hernandes NP Unavailable JOSE ANTONIO HERNANDES Attending Unavailable SHANIA ANTUNEZ Attending Unavailable MUNIRA GARCIA Attending Unavailable MUNIRA GARCIA Referring Unavailable SHANIA ANTUNEZ Attending Unavailable SHANIA ANTUNEZ Attending Unavailable SHANIA ANTUNEZ Attending Unavailable DARLENE OLMSTEAD Attending Unavailable DARLENE OLMSTEAD Referring Unavailable MUNIRA GARCIA Attending Unavailable Jose Antonio Hernandes NP Unavailable Allergies Allergy ClassificationReported Allergen(s)Allergy TypeDate of OnsetReaction(s) Facility (1 source)PenicillinsDrug allergy (disorder)31-98-9693I[facility] (20 sources)PenicillinsDrug Vpwlpqf09-35-3088WqjovzqGKNJ [facility] Medications Current Medications MedicationDrug Class(es)DatesSig (Normalized)Sig (Original)[id number] 200 actuat albuterol 0.09 mg/actuat metered dose inhaler (9 sources)beta2-Adrenergic Agonist End: 93-45-0265tjkt 2 puff(s) by inhalation every four hours for wheezing albuterol HFA (ProAir HFA) 90 mcg/act inhaler Inhale 2 puffs every 4 (four) hours if needed for wheezing or shortness of breath 04/05/2025 Discontinued (Other)cephalexin 500 mg oral capsule (2 sources)Cephalosporin AntibacterialStart: 08-25-2025 End: 83-65-5160aqjq 1 capsule by mouth in the morning, then take 1 capsule by mouth in the evening, then take 1 capsule by mouth at bedtimecephalexin (Keflex) 500 MG capsule Indications: Urinary tract infection without hematuria, site unsp ecified Take 1 capsule (500 mg) by mouth in the morning and 1 capsule (500 mg) in the evening and 1capsule (500 mg) before bedtime. Do all this for 7 days. 21 capsule 08/25/2025 09/01/2025 ActivediphenhydrAMINE hydrochloride 50 mg oral tablet (16 sources)Histamine-1 Receptor AntagonistdiphenhydrAMINE (BENADryl) 50 MG tablet Take 50 mg by mouth as needed at bedtime for itching Activefexofenadine hydrochloride 180 mg oral tablet (9 sources)Histamine-1 Receptor Antagonist End: 33-71-1148wfmd 1 tablet by mouth once dailyfexofenadine ([facility] Allergy Relief) 180 MG tablet Take 180 mg by mouth Daily 04/05/2025 Discontinued (Other) magnesium oxide 400 mg oral tablet (5 sources)Start: 03-10-2025 End: 01-02-3665wprf 1 tablet by mouth once dailymagnesium oxide (Mag-Ox) 400 MG tablet Indications: headache in first trimester Take 1 tablet (400 mg) by mouth Daily 30 tablet 11 03/10/2025 04/05/2025 Discontinued (Other) nitrofurantoin, macrocrystals 25 mg / nitrofurantoin, monohydrate 75 mg oral capsule (5 sources)Nitrofuran AntibacterialStart: 07-13-2025 End: 98-21-2001elqs 1 capsule by mouth in the morningnitrofurantoin, macrocrystal-monohydrate, (Macrobid) 100 MG capsule Indications: Cystitis Take 1 capsule (100 mg) by mouth in the morning and 1 capsule (100 mg) before bedtime. Do all this for 7 days. 14 capsule 07/13/2025 07/20/2025 ActiveStart: 04-06-2025 End: 28-32-3610lxat 1 capsule by mouth in the morningnitrofurantoin, macrocrystal-monohydrate, (Macrobid) 100 MG capsule Indications: Urinary tract infection without hematuria, site unspecified Take 1 capsule (100 mg) by mouth in the morning and 1 capsule (100 mg) before bedtime. Do all this for 7 days. 14 capsule 04/06/2025 04/13/2025 ActiveStart: 03-10-2025 End: 17-78-7274ehpx 1 capsule by mouth in the morningnitrofurantoin, macrocrystal-monohydrate, (Macrobid) 100 MG capsule Indications: UTI symptoms Take 1 capsule (100 mg) by mouth in the morning and 1 capsule (100 mg) before bedtime. Do all this for 7 days. 14 capsule 03/10/2025 03/17/2025 Active omeprazole 20 mg delayed release oral capsule (13 sources)Proton Pump InhibitorStart: 07-13-2025 End: 81-26-0101tnkm 1 capsule by mouth before mealtimeomeprazole (PriLOSEC) [address] capsule Indications: Gastroesophageal Reflux Disease , Heartburn Take 1 capsule (20 mg) by mouth in the morning. Take before meals. Do not crush or chew. 30 capsule 3 07/13/2025 Activeondansetron 4 mg disintegrating oral tablet (8 sources)Serotonin-3 Receptor AntagonistStart: 03-10-2025 End: 63-76-3589hdkd 1 tablet by mouth every six hours for nauseaondansetron ODT (Zofran-ODT) 4 MG disintegrating tablet Indications: Nausea and vomiting in Take 1 tablet (4 mg) by mouth every 6 (six) hours if needed for nausea or vomiting 30 tablet 2 03/10/2025 04/09/2025 Activepolysaccharide iron complex 391 mg oral capsule (11 sources)Start: 07-27-2025 End: 06-23-0207wary 1 capsule by mouth once dailyiron polysaccharides (ProFe) 391.3 (180 Fe) MG capsule Indications: Anemia, unspecified type Take 1capsule (391.3 mg) by mouth Daily 30 capsule 6 07/27/2025 08/26/2025 ActiveStart: 04-06-2025 End: 22-84-9666nqhs 1 capsule by mouth once dailyiron polysaccharides (ProFe) 391.3 (180 Fe) MG capsule Indications: Other iron deficiency anemia Take 1 capsule (391.3 mg) by mouth Daily 30 capsule 6 04/06/2025 05/06/2025 Active MV-Min-Fe Fum-FA-DHA ( 1 PO) (16 sources) MV-Min-Fe Fum-FA-DHA ( 1 PO) Take 1 tablet by mouth Daily Active Completed/Discontinued Medications MedicationDrug Class(es)DatesSig (Normalized)Sig (Original)FLUoxetine 10 mg oral capsule (5 sources)Serotonin Reuptake InhibitorStart: 11-18-2022 End: 23-16-9405jvxm 1 capsule by mouth once dailyFLUoxetine (PROzac) 10 MG capsule Take 1 capsule by mouth 1 (one) time each day at the same time 03/10/2025 Discontinued (Other)fluticasone propionate 0.05 mg/actuat metered dose nasal spray (5 sources)Corticosteroid End: 09-29-6046ruji 1 spray(s) nasal route once dailyfluticasone (Flonase) 50 MCG/ACT nasal spray Administer 1 spray into each nostril 1 (one) time eachday at the same time 03/10/2025 Discontinued (Other)24 hr metFORMIN hydrochloride 500 mg extended release oral tablet (5 sources)BiguanideStart: 06-07-2024 End: 61-37-9690pgnc 1 tablet by mouth every twenty-four hours at mealtime metFORMIN XR (Glucophage-XR) 500 MG 24 hr tablet Indications: PCOS (polycystic ovarian syndrome) Take 1 tablet (500 mg) by mouth in the evening. Take with meals Do not crush, chew, or split. 30 tablet 11 06/07/2024 03/10/2025 Discontinued (Other) Problems Problem ClassificationProblemDateDocumented DateEpisodic/ChronicAbdominal pain (10 sources)Pelvic and perineal pain; Translations: [Unspecified abdominal pain] Onset: 07-20-2786XuchfkacYxeuyr (20 sources)Exercise-induced asthma; Translations: [Exercise induced bronchospasm]Onset: 614815-57-7516LlvvzilOvxdovhghb and other anemia (2 sources)Iron deficiency anemia; Translations: [Other iron deficiency anemias] 41-61-7303ImjgglmvNmnanejkwx and other anemia (2 sources)Anemia; Translations: [Anemia, unspecified]69-95-0831YtaqpxdcItlvryea mellitus without complication (2 sources)Abnormal glucose tolerance test; Translations: [Other abnormal glucose]90-16-3852VgduefzpDocodpdls of teeth and jaw (2 sources)Jaw pain; Translations: [Jaw pain]84-55-0555OytdbpiwGvcedzwnqkusa congenital anomalies (1 source)Bicornate uterus; 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]Onset: 10-18-2021 ChronicGenitourinary symptoms and ill-defined conditions (1 source)Urinary symptoms ; Translations: [Unspecified symptoms and signs involving the genitourinary system]27-57-2845VmqiglxfWyevecehjgzsd and screening for infectious disease (2 sources)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; Translations: [Contact with and (suspected) exposure to infections with a predominantly sexual mode of transmission]23-07-8697CzakxndmIvavl disorders and dislocations; trauma-related (20 sources)Patellofemoral syndrome of right knee; Translations: [Patellofemoral disorders, right knee]Onset: 700141-77-9074SprenxjZvkajrrbc disorders (1 source)Missed period; Translations: [Irregular menstruation, unspecified] 90-72-8295IbgqoklBqji disorders (20 sources)Severe major depression, single episode, without psychotic features; Translations: [Major depressive disorder, single episode, severe without psychotic features]Onset: 022904-24-9481VrzdwagEgakb complications of (1 source)Vomiting of , unspecified; Translations: [Unspecified vomiting of , unspecified as to episode of care or not applicable] 21-81-0195RrdzdgddGxklj complications of (1 source)Headache; Translations: [Other specified related conditions, first trimester]40-31-2229JzmyuagzJxzkt complications of (2 sources)Gastroesophageal reflux disease in ; Translations: [Diseases of the digestive system complicating , unspecified trimester] 04-36-2943RcapiyaoTgmnv complications of (8 sources) size does not accord with dates; Translations: [Uterine size- date discrepancy, unspecified trimester]Onset: 577561-98-1084UwkwgnueOfisd ear and sense organ disorders (2 sources)Bilateral earache; Translations: [Otalgia, bilateral]04-05-2025 EpisodicOther endocrine disorders (20 sources)Polycystic ovary syndrome; Translations: [Polycystic ovarian syndrome]Onset: 992394-58-1131ZjbuvrzLbxzy endocrine disorders (2 sources)Disorder of endocrine system; Translations: [Endocrine disorder, unspecified]27-32-8265VrorltbnFboox female genital disorders (2 sources)Pain in female genitalia on intercourse; Translations: [Unspecified dyspareunia]98-81-6237OtttlguUbvft female genital disorders (2 sources)Vaginal discharge; Translations: [Other specified noninflammatory disorders of vagina]38-48-1718JcboswkhHkorz and delivery including normal (16 sources); Translations: [Encounter for supervision of normal , unspecified, unspecified trimester]56-58-2253TjldzseqDtftz screening for suspected conditions (not mental disorders or infectious disease) (4 sources)Patient encounter status; Translations: [Encounter for other specified screening]79-15-3771NyozjaibHbrzmff cyst (5 sources)Unspecified ovarian cyst, left side; Translations: [UNSPECIFIED OVARIAN CYST LEFT SIDE]Onset: 98-17-1589XhouulsyOvlwisqu codes; unclassified (2 sources)Gestation period, 12 weeks; Translations: [12 weeks gestation of ]73-83-0158IirbpuhhNoirnmfr codes; unclassified (2 sources)Gestation period, 18 weeks; Translations: [18 weeks gestation of ]81-84-6180TyxngwdhXvououyz codes; unclassified (2 sources)Gestation period, 22 weeks; Translations: [22 weeks gestation of ]01-80-9041AcvdligbWuyvyxwk codes; unclassified (2 sources)Gestation period, 26 weeks; Translations: [26 weeks gestation of ]81-21-3770PptijvjvExovexjj codes; unclassified (2 sources)Gestation period, 28 weeks; Translations: [28 weeks gestation of ]90-03-3690KxoifmmnPbhdtxuh codes; unclassified (2 sources)Gestation period, 30 weeks; Translations: [30 weeks gestation of ]97-27-7531KgpsnwojItuxzfus codes; unclassified (2 sources)Gestation period, 32 weeks; Translations: [32 weeks gestation of ]00-22-2331YhebjfvcSyhwjme tract infections (6 sources)Urinary tract infectious disease; Translations: [Urinary tract infection, site not specified]88-81-5929Nkipmjai Results Test NameValueInterpretationReference RangeFacilityUrinalysis macro (dipstick) panel (U)on 38-11-3717Adnbgvwgm, UANegativeNegative - 4(70) +++ mg/dLNOMS HealthcareBlood, UANegativeNegative - 50 Tarun/mcLNOMS HealthcareClarity, UAClear NOMS HealthcareColor, UAYellowNOMS HealthcareGlucose, UANegativeNegative - 1999(110) ++++ mg/dLNOMS HealthcareInterpretation and review of laboratory resultsAbnormalNOMS HealthcareKetones, UANegativeNegative - 160(16) ++++ mg/dL NOMS HealthcareLeukocytes, UA1+Negative - 500+++ Joelle/mcLNOMS HealthcareNitrite, UANegativeNegative - PositiveNOMS HealthcarepH, UA6.05 - 9NOMS Healthcare Protein, UATraceNegative - 2000(20) ++++ mg/dLNOMS HealthcareSpec Grav, UA1.0101 - 1.03NOMS HealthcareUrobilinogen, UA2.00.2 - 12 mg/dLNOMS HealthcareNOMS HealthcareGLUCOSE TOLERANCE 3 HOURon 85-28-5887IBVHXIJ TOLERANCE 3 HOURmg/dLNOMS HealthcareComment on above:GLU FAST 75 (<95) Col: 08/22/25 0844 GLU 1HR () Col: 08/22/25 0928 GLU 2HR () Col: 08/22/25 1028 GLU 3HR () Col: 08/22/25 1128 CLINISYNCNOMS HealthcareTBH UA (CLEAN/CATCH) HEADING PINNER/MICRO IF IND.on 08-19-2025 BILIRUBIN URINENegativeNEGATIVENOMS HealthcareBLOOD URINENegativeNEGATIVENOMS HealthcareClarity (U)CLEARCLEARNOMS HealthcareColor (U)LT. YELLOWYELLOWNOMS HealthcareGLUCOSE URINE UANegativeNEGATIVE mg/dLNOMS HealthcareInterpretation and review of laboratory resultsAbnormalNOMS HealthcareKetones Ql (U)Negative NEGATIVE mg/dLNOMS HealthcareLeukocyte esterase Test strip Ql (U)SMALLAbnormal NEGATIVENOMS HealthcareNITRITE URINENegativeNEGATIVENOMS HealthcarepH (U)7.0 [pH]5.0 - 9.0NOMS HealthcarePROTEIN URINENegativeNEG/TRACE mg/dLNOMS Healthcare SPECIFIC GRAVITY URINE1.0101.005 - 1.025NOMS HealthcareURINE MICROSCOPIC INDICATEDYESNOMS HealthcareUROBILINOGEN URINE0.2 EU/dL0.2 - 1.0 EU/dLNOMS HealthcareCLINISYNCNOMS HealthcareUS OB FOLLOW UP TRANSABDOMINAL APPROACHon 99-25-0442RW OB FOLLOW UP TRANSABDOMINAL APPROACHFINDINGS: Comparison May 31, 2025. A single, live [...] menstrual period. TRANSCRIBED BY: ELECTRONICALLY SIGNED BY: Narda Kulkarni AvailableComment on above:Order Comment: US OB SCAN FOR GROWTH Estimated Date of Delivery: 10/14/25 Gestational Age as of 07/13/2025: 27y5bBastbwrrhr macro (dipstick) panel (U)on 97-44-1926Aglzpsnoz, UANegativeNegative - 4(70) +++ mg/dLNOMS HealthcareBlood, UANegativeNegative [...] mg/dLNOMS HealthcareNOMS HealthcareUrinalysis macro (dipstick) panel (U)on 41-74-3640Nxnmnroup, UA NegativeNegative - 4(70) +++ mg/dLNOMS HealthcareBlood, [...] UA1.0051 - 1.03NOMS HealthcareUrobilinogen, UA2.00.2 - 12 mg/dLCoxHealth HealthcareALL CBC WITH AUTO DIFFon 11-22-0549XGSJEAVLJ ABSOLUTE YLDT6AQPD HealthcareBasophils/100 WBC (Bld)0.3 %0.2 - 2.0 %[facility] HospitalEosinophils/100 WBC (Bld)1.3 %0.9 - 7.0 %[facility] Erythrocyte distribution width (RBC) [Ratio]14.3 %11.0 - 15.0 %[facility] Hematocrit (Bld) [Volume fraction]32 %Low36.0 - 48.0 %[facility] HospitalHemoglobin (Bld) [Mass/Vol]10.4 g/dLLow12.0 - 16.0 g/dLCenterPointe HospitalIMMATURE GRANULOCYTES ABS AUTO0.03[facility] HospitalImmature granulocytes/100 WBC (Bld)0.4 %0.0 - 0.5 % [facility] HospitalInterpretation and review of laboratory resultsAbnormalCenterPointe HospitalLYMPHOCYTES ABSOLUTE OUGW5UeySNLC [facility] Hospitals Health SystemLymphocytes/100 WBC (Bld) 14 %Low20.5 - 60.0 %[facility] CenterH (RBC) [Entitic mass]26.2 pgLow26.7 - 34.0 pgCenterPointe HospitalMCHC (RBC) [Mass/Vol]32.5 g/dL29.9 - 35.2 g/dLCenterPointe Hospital MCV (RBC) [Entitic vol]80.6 fLLow81.0 - 99.0 fLCenterPointe HospitalMONOCYTES ABSOLUTE AUTO0.3[facility]Po[facility] HospitalMonocytes/100 WBC (Bld)4 %1.7 - 12.0 %[facility] NEUTROPHILS ABSOLUTE AUTO5.7[facility]Po[facility] HospitalNeutrophils/100 WBC (Bld)80 %High43.0 - 75.0 %[facility] HospitalPlatelet mean volume (Bld) [Entitic vol]10.9 fL9.5 - 13.5 fLCenterPointe HospitalTB EO #0.1NOMS [facility] Health SystemTB CTR490ORNQMercy Hospital South, formerly [facility] RBC3.97 LowNOMercy Hospital South, formerly [address] [facility] WBC7.1NOMS [facility] Health SystemCLINISYNCNWright Memorial HospitalUrinalysis macro (dipstick) panel (U)on 73-32-0995Hqadotpgw, UANegativeNegative - 4(70) +++ mg/dLNOMS HealthcareBlood, UANegativeNegative - 50 Tarun/mcLNOMS Healthcare Clarity, UAClearNOMS HealthcareColor, UAAmberNOMS HealthcareGlucose, UANegative Negative - 1999(110) ++++ mg/dLNOMS HealthcareInterpretation and review of laboratory resultsAbnormalRIVERTON HOSPITAL HealthcareKetones, UANegativeNegative - 160(16) ++++ mg/dLNOMS HealthcareLeukocytes, UAPositiveNegative - 500+++ Joelle/mcLNOMS HealthcareNitrite, UAPositiveNegative - PositiveNOMS HealthcarepH, UA6.55 - 9 NOMS HealthcareProtein, UAPositiveNegative - 1999(20) ++++ mg/dLNOMS Healthcare Spec Grav, UA1.0151 - 1.03NOMS HealthcareUrobilinogen, UA1.00.2 - 12 mg/dLNOMS HealthcareNONV HealthcareUrinalysis macro (dipstick) panel (U)on 06-15-2025 Bilirubin, UANegativeNegative - 4(70) +++ mg/dLNOMS HealthcareBlood, UANegative Negative - 50 Tarun/mcLNOMS HealthcareClarity, UAClearNOMS HealthcareColor, UA YellowNOMS HealthcareGlucose, UANegativeNegative - 1999(110) ++++ mg/dLNOMS HealthcareInterpretation and review of laboratory resultsNormalRIVERTON HOSPITAL Healthcare Ketones, UANegativeNegative - 160(16) ++++ mg/dLNOMS HealthcareLeukocytes, UA NegativeNegative - 500+++ Joelle/Doctors' HospitalNONV HealthcareNitrite, UANegativeNegative - PositiveNOMS HealthcarepH, UA65 - 9NOMS HealthcareProtein, UANegativeNegative - 1999(20) ++++ mg/dLNOMS HealthcareSpec Grav, UA1.0151 - 1.03NONV Healthcare Urobilinogen, UA1.00.2 - 12 mg/dLNOMS HealthcareNONV HealthcareRECURRENT VAGINITIS (HTRX)on 60-48-5348DQFCQJFVV TNLVRSU6UFNB HealthcareATOPOBIUM VAGINAE Not detectedNONV HealthcareBVAB 2,3 (BACTERIAL VAGINOSIS ASSOCIATED BACTERIA 2, 3); MOBILUNCUS SPP22.558AbnormalNOMS HealthcareBVAB 2,3 (BACTERIAL VAGINOSIS ASSOCIATED BACTERIA 2, 3); MOBILUNCUS SPPDetectedAbnormalNOMS HealthcareCANDIDA ALBICANS, PARAPSILOSIS, [id number] HealthcareCANDIDA ALBICANS, PARAPSILOSIS, TROPICALISNot detectedNOMS HealthcareCANDIDA AWEUKJXE6EZCE HealthcareCANDIDA GLABRATANot detectedNOMS HealthcareCANDIDA NGNSZQ0MOWR HealthcareCANDIDA KRUSEINot detectedNOMS HealthcareCHLAMYDIA MFYKKYLGVOI8PMBL HealthcareCHLAMYDIA TRACHOMATISNot detectedNOMS HealthcareERMB, C; MEFA25.177 AbnormalNOMS HealthcareERMB, C; MEFADetectedAbnormalNOMS HealthcareGARDNERELLA SOCAUNKSZ89.544AbnormalNOMS HealthcareGARDNERELLA VAGINALISDetectedAbnormalNOMS HealthcareInterpretation and review of laboratory resultsAbnormalNOMS Healthcare MEGASPHAERA (TYPES 1, 2)0NOMS HealthcareMEGASPHAERA (TYPES 1, 2)Not detectedNOMS HealthcareMYCOPLASMA RWCCGLTEMX2YLJP HealthcareMYCOPLASMA GENITALIUMNot detected NOMS HealthcareNEISSERIA SPPCQBAKTTS1YSTU HealthcareNEISSERIA GONORRHOEAENot detectedNOMS HealthcareTET B, TET M21.747AbnormalNOMS HealthcareTET B, TET M DetectedAbnormalNOMS HealthcareTRICHOMONAS ONHNICTIH4FKDV HealthcareTRICHOMONAS VAGINALISNot detectedNOMS HealthcareNOMS HealthcareUS OB 14+ WEEKS ANATOMY SCAN on 11-32-5448RO OB 14+ WEEKS ANATOMY SCANFINDINGS: A single, [...] Delivery: 10/14/25 Gestational Age as of 05/18/2025: 82b6uLfpdssgqrx macro (dipstick) panel (U)on 36-88-3838Iqogaajfz, UANegativeNegative - 4(70) +++ mg/dLNOMS HealthcareBlood, UANegativeNegative - 50 Tarun/mcLNOMS HealthcareClarity, UAClearNOMS Healthcare Color, UAYellowNOMS HealthcareGlucose, UANegativeNegative - 1999(110) ++++ mg/dL NOMS HealthcareInterpretation and review of laboratory resultsAbnormalNOMS HealthcareKetones, UANegativeNegative - 160(16) ++++ mg/dLNOMS Healthcare Leukocytes, UANegativeNegative - 500+++ Joelle/mcLNOMS HealthcareNitrite, UA NegativeNegative - PositiveNOMS HealthcarepH, UA6.55 - 9NOMS HealthcareProtein, UATraceNegative - 2000(20) ++++ mg/dLNOMS HealthcareSpec Grav, UA1.011 - 1.03 NOMS HealthcareUrobilinogen, UA0.20.2 - 12 mg/dLNOMS HealthcareNOMS Healthcare Urinalysis macro (dipstick) panel (U)on 37-49-3445Uzabeurjb, UANegativeNegative - 4(70) +++ mg/dLNOMS HealthcareBlood, UAPositiveNegative - 50 Tarun/mcLNOMS HealthcareComment on above:traceClarity, UACloudyNOMS HealthcareColor, UAYellow NOMS HealthcareGlucose, UANegativeNegative - 2000(110) ++++ mg/dLNOMS Healthcare Interpretation and review of laboratory resultsAbnormalNOMS HealthcareKetones, UANegativeNegative - 160(16) ++++ mg/dLNOMS HealthcareLeukocytes, UATrace Negative - 500+++ Joelle/mcLNOMS HealthcareNitrite, UAPositiveNegative - Positive [facility] HealthcareComment on above:positivepH, UA7.55 - 9NONV HealthcareProtein, UA NegativeNegative - 1999(20) ++++ mg/dLNONV HealthcareSpec Grav, UA1.021 - 1.03 NOMS HealthcareUrobilinogen, UA0.20.2 - 12 mg/dLNOUniversity of [facility] Healthcare ALL CBC WITH AUTO DIFFon 12-85-3205TTICIRZQA ABSOLUTE TOZL8PFVL Healthcare Basophils/100 WBC (Bld)0.5 %0.2 - 2.0 %NOMS HealthcareEosinophils/100 WBC (Bld) 2.5 %0.9 - 7.0 %[facility] HealthcareErythrocyte distribution width (RBC) [Ratio]17.3 %High11.0 - 15.0 %[facility] HealthcareHematocrit (Bld) [Volume fraction]32.1 %Low36.0 - 48.0 %[facility] HealthcareHemoglobin (Bld) [Mass/Vol]10.4 g/dLLow12.0 - 16.0 g/dL [facility] HospitalIMMATURE GRANULOCYTES ABS AUTO0.01NONV HealthcareImmature granulocytes/100 WBC (Bld)0.1 %0.0 - 0.5 %[facility] HealthcareInterpretation and review of laboratory resultsAbnormalNONV HealthcareLYMPHOCYTES ABSOLUTE AUTO1.[address] LouisLymphocytes/100 WBC (Bld)14.4 %Low20.5 - 60.0 %[facility] MCH (RBC) [Entitic mass]23.8 pgLow26.7 - 34.[address] LouisMCHC (RBC) [Mass/Vol]32.4 g/dL29.9 - 35.2 g/dLCenterPointe HospitalMCV (RBC) [Entitic vol]73.5 fL Low81.0 - 99.0 fLNONV HealthcareMONOCYTES ABSOLUTE AUTO0.5NOMS Healthcare Monocytes/100 WBC (Bld)7.1 %1.7 - 12.0 %NOM HealthcareNEUTROPHILS ABSOLUTE AUTO 5.5NOMS HealthcareNeutrophils/100 WBC (Bld)75.4 %High43.0 - 75.0 %[facility] HospitalPlatelet mean volume (Bld) [Entitic vol]11.1 fL9.5 - 13.[address] fLNOMercy Hospital South, formerly [facility] EO #0.2NOMS HealthcareBOSTON HOPE [facility] [id number] [facility] RBC4.37NOMercy Hospital [facility], formerly [facility] WBC7.3NONV HealthcareCLINISYNCNOMS HealthcareUS OB TRANSVAGINALon 79-79-7774JA OB TRANSVAGINALEXAM: US OB TRANSVAGINAL HISTORY: Dating. [...] II, MD, PHD at 11-Mar-2025 10:13:58 AM [facility] TeleradiologyNormalNot AvailableComment on above:Order Comment: US OB TRANSVAGINAL No LMP recorded.ALL DEHYDROEPIANDROSTERONEon 57-18-3457TPSO, VLHOA328 ng/dL40 - 491 ng/dLRIVERTON HOSPITAL HealthcareComment on above:Age 1 - 5 years 0 - 67 [...] developed and its performance characteristics determined by [employer]. It has not been cleared or approved by the Food and Drug Administration. Performed at: [address] [id number] [employer] Database Architect: Eliud Rodriguez MD, Phone: [phone] [facility] ANTI-MULLERIAN HORMONEon 45-58-0017XGUE-MULLERIAN HORMONE (AMH)2.79 ng/mL.[facility] HealthcareComment on above:For assays employing antibodies, the possibility exists for interference by heterophile antibodies in the samples.1 1.Gracie Coyle. Interferences in Immunoassays - still a threat. Clin. Chem. 2000; 46: 9667-2443. This test was developed and its performance characteristics determined by [employer]. It has not been cleared or approved [...] exclude an AMH-secreting ovarian tumor. Performed at: [employer] [address] [place] [id number] [employer] Database Architect: Burke Mackey MD, Phone: [phone] [facility] DHEA SULFATEon 43-02-0103LLQM-LIPQNZC778.0 ug/dL 110.0 - 433.2 ug/dLNONV HealthcareALL FOLLICLE STIMULATING HORMONEon 06-16-2024 FSH4.6. mIU/mLNOMS HealthcareComment on above:Adult Female Range Follicular phase 3.5 - 12.5 Ovulation phase 4.7 - 21.5 Luteal phase 1.7 - 7.7 Postmenopausal 25.8 - 134.8 Performed at: [address] [id number] [employer] Database Architect: Nate Don PhD, Phone: [phone] ALL LUTEINIZING HORMONEon 87-68-4434JDZYUYXORQC HORMONE(LH)7.6. mIU/mLNOMS HealthcareComment on above:Adult Female Range Follicular phase 2.4 - 12.6 Ovulation phase 14.0 - 95.6 Luteal phase 1.0 - 11.4 Postmenopausal 7.7 - 58.5 No Panel Informationon 34-29-9413RLPGVNHAPIUCN HealthcareALL CBC WITH AUTO DIFF on 02-28-4438SCQSKJJIX ABSOLUTE AUTO0.0NOMercy Hospital St. LouisBasophils/100 WBC (Bld)0.7 %0.2 - 2.0 %NOM HealthcareEosinophils/100 WBC (Bld)2.3 %0.9 - 7.0 %[facility] HospitalErythrocyte distribution width (RBC) [Ratio]15.6 %High11.0 - 15.0 % [facility] HospitalHematocrit (Bld) [Volume fraction]34.8 %Low36.0 - 48.0 %[facility] HospitalHemoglobin (Bld) [Mass/Vol]10.9 g/dLLow12.0 - 16.0 g/dLCenterPointe Hospital IMMATURE GRANULOCYTES ABS AUTO0.01NOMercy Hospital St. LouisImmature granulocytes/100 WBC (Bld)0.2 %0.0 - 0.5 %[facility] HospitalInterpretation and review of laboratory resultsAbnormalNOMercy Hospital St. LouisLYMPHOCYTES ABSOLUTE AUTO1.4[facility] Lymphocytes/100 WBC (Bld)23.6 %20.5 - 60.0 %[facility] CenterH (RBC) [Entitic mass]23.2 pgLow26.7 - 34.0 pgNOPike County Memorial HospitalHC (RBC) [Mass/Vol]31.3 g/dL29.9 - 35.2 g/dLMissouri Baptist Medical CenterV (RBC) [Entitic vol]74.0 fLLow81.0 - 99.0 fLCenterPointe HospitalMONOCYTES ABSOLUTE AUTO0.5NOMS HealthcareMonocytes/100 WBC (Bld)7.8 % 1.7 - 12.0 %NOMDeaconess Incarnate Word Health SystemNEUTROPHILS ABSOLUTE AUTO4.0[facility] Neutrophils/100 WBC (Bld)65.4 %43.0 - 75.0 %NOMS HealthcarePlatelet mean volume (Bld) [Entitic vol]10.3 fL9.5 - 13.5 fLNOMercy Hospital South, [facility] EO #0.1[facility] TB [id number] [facility] SystemTB RBC4.70[facility] WBC6.1[facility] CLINISYNCNOMS HealthcareUS PELVIS W/ TRANSVAGINALon 28-71-6323[place] [address] Ultrasound Report Signed Patient: DANETTE AYALA MR#: [id number] : 2005 Acct:[id number] Age/Sex: 18 / F ADM Date: 06/15/24 Loc: N[facility]S Attending Dr: Shania Antunez D.O. Ordering Physician: Shania Antunez D.O. Date of Service: 06/15/24 Procedure(s): US pelvis w/ transvaginal Accession Number(s): [id number] cc: ELIANA MARQUIS ; Shania Antunez D.O. [place] [id number] Patient Name: DANETTE AYALA MRN: [facility]:[id number] date: 2005 Sex: F Assigned Patient Location: [facility] Current Patient Location: LAB Accession/Order Number: [id number] Exam Date: 06/15/2024 13:11 Report Date: 06/15/2024 [...] M.A. Signed By: 06/15/242203 DD/ 01 TD/TT: Sound Designer:ARLETHRadiology, Radiologist, - 06/15/2024 [place] [address] Ultrasound Report Signed Patient: DANETTE AYALA MR#: [id number] : 2005 Acct:[id number] Age/Sex: 18 / F ADM Date: 06/15/24 Loc: NOMS Attending Dr: Shania Antunez D.O. Ordering Physician: Shania Antunez D.O. Date of Service: 06/15/24 Procedure(s): US pelvis w/ transvaginal Accession Number(s): [id number] cc: ELIANA MARQUIS ; Shania Antunez D.O. [address] [place] [id number] Patient Name: DANETTE AYALA MRN: [facility]:[id number] date: 2005 Sex: F Assigned Patient Location: [facility] Current Patient Location: LAB Accession/Order Number: [id number] Exam Date: 06/15/2024 13:11 Report Date: 06/15/2024 [...] M.A. Signed By: 06/15/242203 DD/ 01 TD/TT: Sound Designer: CenterPointe HospitalRadiology Study observation (narrative)[facility] [employer] PharmaceuticalsUS PELVIS W/ TRANSVAGINALOrdered By: Radiologist Radiology on 11-71-8600QVXG [employer] Work Phone: US PELVIS AND TRANSVAGon [id number] PELVIS AND TRANSVAGEXAMINATION: US PELVIS AND TRANSVAG [...] Electronically authenticated by: KIAN MONREAL Date: 2022-01-02 14:[address] [place] [address] PELVIS AND TRANSVAGon 91-34-7866OX PELVIS AND TRANSVAG EXAMINATION: US PELVIS AND [...] Electronically authenticated by: MELVIN ALONSO Date: 2021-10-12 15:53NormalThOhio State East Hospital AUTO DIFFon 16-60-4923MCSC #0.0 103/ulNormal0.0-0.1The [facility]as HospitalComment on above:Performed By: #### CBC #### [facility] [address] [place] [address] Cain KarenBasophils/100 WBC (Bld)0.3 %Normal0.2-2.0The [facility] Comment on above:Performed By: #### CBC #### [facility] [address] [place] [address] Cain KarenEO #0.0 103/ulNormal0.0-0.7The [facility]awas HospitalComment on above: Performed By: #### CBC #### [facility] [address] [place] [address] Cain KarenEosinophils/100 WBC (Bld)0.3 %Critically low0.9-7.0The [facility]as HospitalComment on above:Performed By: #### CBC #### [facility] [address] [place] [address] Cain KarenErythrocyte distribution width (RBC) [Ratio]14.3 %Hyormy24.0-15.0The [facility]as HospitalComment on above:Performed By: #### CBC #### [facility] [address] [place] [address] Cain KarenHematocrit (Bld) [Volume fraction]34.1 %Critically low36.0-48.0The [facility]as HospitalComment on above:Performed By: #### CBC #### [facility] [address] [place] [address] Cain KarenHemoglobin (Bld) [Mass/Vol]11.1 g/dLCritically low12.0-16.0The [facility] HospitalComment on above:Performed By: #### CBC #### [facility] [address] [place] [address] Cain KarenIG #0.02 10e3/ulNormal0.00-0.03The [facility]as HospitalComment on above:Performed By: #### CBC #### [facility] [address] [place] [address] Cain KarenIG %0.2 %Normal0.0-0.5The [facility]as HospitalComment on above: Performed By: #### CBC #### [facility] [address] [place] [address] Cain KarenLYMPH #0.9 103/ulCritically low1.2-3.8The [facility]as HospitalComment on above:Performed By: #### CBC #### [facility] [address] [place] [address] Cain KarenLymphocytes/100 WBC (Bld)9.3 %Critically low20.5-60.0The [facility]as HospitalComment on above:Performed By: #### CBC #### [facility] [address] [place] [address] Cain KarenMANUAL DIFF REQNONormalThe [facility]carawas HospitalComment on above: Performed By: #### CBC #### [facility] [address] [place] [address] Cain KarenMCH (RBC) [Entitic mass]25.6 pgCritically low26.7-34.0The [facility]as HospitalComment on above:Performed By: #### CBC #### [facility] [address] [place] [address] Cain KarenMCHC (RBC) [Mass/Vol]32.6 g/hBIcnxqv63.9-35.2The [facility] Comment on above:Performed By: #### CBC #### [facility] [address] [place] [address] Cain KarenMCV (RBC) [Entitic vol]78.8 fLCritically low79.1-95.6The [facility] HospitalComment on above:Performed By: #### CBC #### [facility] [address] [place] [address] Cain ChapmanMONO #0.6 103/ulNormal0.3-0.8The [facility]as HospitalComment on above: Performed By: #### CBC #### [facility] [address] [place] [address] Cain KarenMonocytes/100 WBC (Bld)6.3 %Normal1.7-12.0The [facility] Comment on above:Performed By: #### CBC #### [facility] [address] [place] [address] Cain OlsonenNEUT #8.0 103/ulCritically high1.4-6.5The [facility] HospitalComment on above:Performed By: #### CBC #### [facility] [address] [place] [address] Cain KarenNeutrophils/100 WBC (Bld)83.6 %Critically high43.0-75.0The [facility]as HospitalComment on above:Performed By: #### CBC #### [facility] [address] [place] [address] Cain KarenPlatelet mean volume (Bld) [Entitic vol]11.0 fLNormal9.5-13.5The [facility] HospitalComment on above:Performed By: #### CBC #### [facility] [address] [place] [address] Cain MvclxOAA419 103/adSaskrp233-614Rmp [facility] HospitalComment on above: Performed By: #### CBC #### [facility] [address] [place] [address] Cain KarenRBC4.33 106/ulNormal3.40-5.30The [facility] HospitalComment on above: Performed By: #### CBC #### [facility] [address] [place] [address] Cain KarenWBC9.6 103/ulNormal4.0-11.0The [facility] HospitalComment on above: Performed By: #### CBC #### [facility] [address] [id number] Cain FairchildT ABD/PELV W CONon 99-69-1206PQ ABD/PELV W CONCLINICAL HISTORY: ABDOMINAL DISTENSION (GASEOUS). [...] Electronically authenticated by: HARSHA AGUILAR Date: 2021-05-05 14:12NormMer[facility] URINE PROFILEon 38-45-7439Quduuoqex Ql (U)NegativeNormal NEGATIVEThe [facility]carawas HospitalComment on above:Performed By: #### ERUR, PREGU #### [facility] [address] [place] [address] Cain KarenClarity (U)CLEARNormalCLEARPaulding County Hospital HospitalComment on above: Performed By: #### ERUR, PREGU #### [facility] [address] [place] [address] Cani KarenColor (U)LT. YELLOWNormalYELLOWPaulding County Hospital HospitalComment on above:Performed By: #### ERUR, PREGU #### [facility] [address] [place] [address] Cain KarenERUAHDA micrscopic examination will be performed if indicated.Normal [facility] HospitalComment on above:Performed By: #### ERUR, PREGU #### [facility] [address] [place] [address] Cain KarenGlucose Ql (U)NegativeNormalNEGATIVEPaulding County Hospital HospitalComment on above:Performed By: #### ERUR, PREGU #### [facility] [address] [place] [address] Cain KarenHemoglobin Ql (U)NegativeNormalNEGATIVEPaulding County Hospital HospitalComment on above:Performed By: #### ERUR, PREGU #### [facility] [address] [place] [address] Cain KarenKetones Ql (U)NegativeNormalNEGATIVEPaulding County Hospital HospitalComment on above:Performed By: #### ERUR, PREGU #### [facility] [address] [place] [address] Cain KarenLEUKOCYTESNegativeNormalNEGATIVEPaulding County Hospital HospitalComment on above:Performed By: #### ERUR, PREGU #### [facility] [address] [place] [address] Cain KarenNitrite Ql (U)NegativeNormalNEGATIVEPaulding County Hospital HospitalComment on above:Performed By: #### ERUR, PREGU #### [facility] [address] [place] [address] Cain KarenpH (U)6.5 [pH]Normal5-9[facility] HospitalComment on above: Performed By: #### ERUR, PREGU #### [facility] [address] [place] [address] Cain KarenSPEC GRAVITY1.185Rxbzur8.005-<=1.025The [facility] HospitalComment on above:Performed By: #### BE, PREGU #### [facility] [address] [place] [address] Cain KarenUA PROTEINNegativeNormalNEGATIVE/ TRACEThe [facility]wood HospitalComment on above:Performed By: #### BE, PREGU #### [facility] [address] [place] [address] Cain KarenUR MICRO INDNOT INDICATEDNormalThe [facility] HospitalComment on above:Performed By: #### BE, PREGU #### [facility] [address] [place] [address] Cain KarenUrobilinogen Qn (U)0.2 {Dagoberto'U}/dLNormal0.2 - 1.0The [facility] HospitalComment on above:Performed By: #### BE, PREGU #### [facility] [address] [place] [address] Cain KarenLIPASEon 43-57-6133Kqapgt [Catalytic activity/Vol]53.0 U/LNormal 23.0-300.0The [facility] HospitalComment on above:Performed By: #### CMP, LIPA #### [facility] [address] [place] [address] Cain KarenPREGNANCY URon 32-81-6885BLLQBXZCS, QUALNegativeNormalNEGATIVEThe [facility] HospitalComment on above:Performed By: #### KIERANR, PREGU #### [facility] [address] [place] [address] Cain KarenPROF 14(COMP METB)on 11-78-1246Jerbukw [Mass/Vol]3.7 g/dLNormal 3.5-5.0The [facility] HospitalComment on above:Performed By: #### CMP, LIPA #### [facility] [address] [place] [address] Cain KarenAlbumin/Globulin [Mass ratio]1.2 {ratio}NormalKindred Hospital Lima Comment on above:Performed By: #### CMP, LIPA #### [facility] [address] [place] [address] Cain KarenALP [Catalytic activity/Vol]86 U/GOmpgyo01-667YbhKindred Hospital Lima Comment on above:Performed By: #### CMP, LIPA #### [facility] [address] [place] [address] Cain KarenALT [Catalytic activity/Vol]22 U/LNormal9-52[facility] Comment on above:Performed By: #### CMP, LIPA #### [facility] [address] [place] [address] Cain KarenAnion gap [Moles/Vol]11.6 mmol/LNormalKindred Hospital LimaComment on above:Performed By: #### CMP, LIPA #### [facility] [address] [place] [address] Cain KarenAST [Catalytic activity/Vol]15 U/BQywnps24-62GleKindred Hospital Lima Comment on above:Performed By: #### CMP, LIPA #### [facility] [address] [place] [address] Cain KarenBilirubin [Mass/Vol]0.5 mg/dLNormal0.2-1.3TCenterville Comment on above:Performed By: #### CMP, LIPA #### [facility] [address] [place] [address] Cain KarenCalcium [Mass/Vol]9.2 mg/dLNormal8.4-10.2[facility] Comment on above:Performed By: #### CMP, LIPA #### [facility] [address] [place] [address] Cain KarenChloride [Moles/Vol]105 mmol/HGxotud39-568VqzKindred Hospital Lima Comment on above:Performed By: #### CMP, LIPA #### [facility] [address] [place] [address] Cain KarenCO2 [Moles/Vol]25.4 mmol/SFzavem78.0-30.0The [facility] Comment on above:Performed By: #### CMP, LIPA #### [facility] [address] [place] [address] Cain KarenCreatinine [Mass/Vol]0.72 mg/dLNormal0.52-1.04The [facility] Comment on above:Performed By: #### CMP, LIPA #### [facility] [address] [place] [address] Cain KarenGlobulin (S) [Mass/Vol]3.2 g/dLNormalThe [facility] HospitalComment on above:Performed By: #### CMP, LIPA #### [facility] [address] [place] [address] Cain KarenGlucose [Mass/Vol]88 mg/gQCfuhhh62-201JjfKindred Hospital LimaComment on above:Performed By: #### CMP, LIPA #### [facility] [address] [place] [address] Cain KarenPotassium [Moles/Vol]4.0 mmol/LNormal3.4-5.0[facility] Comment on above:Performed By: #### CMP, LIPA #### [facility] [address] [place] [address] Cain KarenProtein [Mass/Vol]6.9 g/dLNormal6.1-8.2Kindred Hospital LimaComment on above:Performed By: #### CMP, LIPA #### [facility] [address] [place] [address] Cain KarenSodium [Moles/Vol]138 mmol/IEzilib523-297Muy [facility] Comment on above:Performed By: #### CMP, LIPA #### [facility] [address] [place] [address] Cain KarenUrea nitrogen [Mass/Vol]8.0 mg/dLNormal6.4-19.3[facility] Comment on above:Performed By: #### CMP, LIPA #### [facility] [address] [place], [place] [address] Cain OlsonenUrea nitrogen/Creatinine [Mass ratio]11.1 mg/mgLouis Stokes Cleveland VA Medical CenterComment on above:Performed By: #### TEENA WATKINS #### [facility] [address] [place], [place] [address] Cain ChapmanUS PELVIS TRANSVAGon 58-67-3186LS PELVIS TRANSVAGEXAM: US PELVIS TRANSVAG HISTORY: Cyst [...] demonstrate normal blood flow. Electronically authenticated by: OJNI GUZMAN Date: 2021-05-05 15:27[facility] Vital Signs Date TimeVital SignValuePerforming AryqjfayrAtbhxusy26-12-3735 15:28-0400Body mass index (BMI) [Ratio]28.97 kg/m2Munira LALA Work Phone: [facility] HospitalFttnsstfya34-23-6741 15:28-0400Body pyctva01.57 kgMunira LALA Work Phone: [facility] HospitalIfopfghrwb63-77-7068 15:28-0400Diastolic blood rgxeiglq92 mm[Hg]Munira LALA Work Phone: noMercy Hospital St. LouisVmbasgjlbo31-36-6978 15:28-0400Systolic blood mm[Hg]Munira Damonbreezy LLAA Work Phone: [phone]-[facility]Pointe HospitalNtnutgzmmo45-05-2191 15:16-0400Body mass index (BMI) [Ratio]28.92 kg/m2Munira Damoney PA Work Phone: [phone] [place] [address]-16-2025 15:16-0400Body jimeny45.43 kgMunira Damoney PA Work Phone: [phone]-Community HealthCenterPointe HospitalNkndudivlp72-19-4469 15:16-0400Diastolic blood jcrmcczo54 mm[Hg]Munira Garcia PA Work Phone: [phone] [place] [address]-16-2025 15:16-0400Systolic blood mm[Hg]Munira Damoney PA Work Phone: [phone] [place], [place] [address]Hqbyzzjpwn41-73-3678 13:59-0400Body mass index (BMI) [Ratio]28.84 kg/i4JwuxtkjvDarlene Olmstead [employer] HEL[employer] Work Phone: [phone] [place], [place] [address]Vdnpxdrjxp79-06-2840 13:59-0400Body otjoya14.2 kg Darlene Olmstead [employer] Work Phone: [phone] [place], [place] [address]Fsuuudcsfs35-30-0648 13:59-0400Diastolic blood voviinek80 mm[Hg]Darlnee Olmstead [employer] Work Phone: [phone] [place], [place] [address]Lexounmvhp28-89-5055 13:59-0400Systolic blood uvwrrxuj851 mm[Hg]Darlene Olmstead [employer] Work Phone: [phone] [place], [place] [address]Gxqvxyclwq24-02-3192 15:28-0400Body mass index (BMI) [Ratio]28.69 kg/q8Feppo Tulio DO Work Phone: [phone] [place], [place] [address]Tsczpnltcz31-48-2661 15:28-0400Body ycszfo72.81 kgCorey Tulio DO Work Phone: [phone] [place], [place] [address]Xgualrkerv17-01-3666 15:28-0400Diastolic blood nqabaegj35 mm[Hg]Shania Tulio DO Work Phone: [phone] [place], [place] [address]Arddsxewuw70-64-9590 15:28-0400Systolic blood qgkoamco046 mm[Hg]Shania Tulio DO Work Phone: [facility] HospitalYqvaoiprsc93-53-3605 13:52-0400Body mass index (BMI) [Ratio]28.97 kg/l1Qtuhm Tulio DO Work Phone: [facility] HospitalWkrlpifzil39-84-3620 13:52-0400Body dttvky04.57 kgCorey Tulio DO Work Phone: [phone] [place], [place] [address]Axtsvovpkc52-86-2914 13:52-0400Diastolic blood pppwxyfs16 mm[Hg]Shania Tulio DO Work Phone: [phone] [place], [place] [address]Uacykbvzqa68-46-3530 13:52-0400Systolic blood mm[Hg]Shania Tulio DO Work Phone: [phone] [place], [place] [address]Jdlkqroezo79-44-2195 15:54-0400Body mass index (BMI) [Ratio]28.24 kg/m2Amy Gigi PA Work Phone: [phone] [place], [place] [address]Frgwqzovzb70-18-8997 15:54-0400Body vllbaa51.62 kgAmy Gigi PA Work Phone: [phone] [place], [place] [address]Kfbmzwanph77-17-0300 15:54-0400Diastolic blood aqxfzdid02 mm[Hg]Munira Garcia PA Work Phone: [phone] [place], [place] [address]Pzfyfuzvfm49-01-1496 15:54-0400Systolic blood pceakayi095 mm[Hg]Munira Garcia PA Work Phone: [phone] [place], [place] [address]Vjcqcjutva28-16-8606 13:34-0400Body mass index (BMI) [Ratio]29.35 kg/a3Tymmu Tulio DO Work Phone: [phone] [place], [place] [address]Sfykkaiviy58-83-2340 13:34-0400Body .56 kgCorey Tulio DO Work Phone: [phone] [place], [place] [address]Ozulgzdbuh92-90-5489 13:34-0400Diastolic blood ovhxqpbg52 mm[Hg]Shania Tulio DO Work Phone: [phone]-[facility]Po[facility] HospitalIiqmrqumsr25-31-1760 13:34-0400Systolic blood mm[Hg]Shania Tulio DO Work Phone: [facility] HospitalDlctkldffg33-62-4100 11:07-0400Body eolavs206.6 cmSfacundo Hernandes [employer]PER Work Phone: [facility] HospitalIlllmuowlw26-94-8396 11:07-0400Body mass index (BMI) [Ratio]29.18 kg/d0EczbgrJose Antonio Hernandes [employer] HELPER Work Phone: [facility] HospitalMfypgnkvaz76-29-7855 11:07-0400Body .11 kgJose Antonio Hernandes [employer] HELPER Work Phone: [facility] HospitalWmchkzcrhl31-19-6293 11:07-0400Diastolic blood nvynivkz37 mm[Hg]Jose Antonio Hernandes [employer] HELPER Work Phone: [facility] HospitalNnmorxeytw15-91-4070 11:07-0400Heart rate79 /min Jose Antonio Hernandes [employer] HELPER Work Phone: [facility] HospitalTktlodcwas86-77-3907 11:07-0400Respiratory rate16 /minSfacundo Hernandes [employer]LLER HELPER Work Phone: [facility] HospitalCnogwmqdoo76-37-6631 11:07-1904TdO7% (BldA) [Mass fraction]98 %Jose Antonio Hernandes [employer] HELPER Work Phone: [facility] HospitalTlxhpxudef95-58-9231 11:07-0400Systolic blood nesjrumw319 mm[Hg]Jose Antonio Hernandes [employer] HELPER Work Phone: [facility] HospitalZresxsddfy20-29-1820 13:36-0500Body mass index (BMI) [Ratio]32.58 kg/i5Wmlxf Tulio DO Work Phone: [facility] HospitalYyashjncoe22-24-3684 13:36-0500Body waezke06.09 kgCorey Tulio DO Work Phone: [facility] HospitalMdrfyhtcrg67-66-7351 13:36-0500Diastolic blood ybsamnjq95 mm[Hg]Shania Tulio DO Work Phone: [facility] HospitalXnpurqdljg59-94-9661 13:36-0500Systolic blood htmogrra436 mm[Hg]Shania Tulio DO Work Phone: [facility] Encounters Encounter DateEncounter TypeCare ProviderFacilityStart: 08-25-2025 End: 97-21-7280Vdydyz outpatient visit 15 minutesMunira LALA Work Phone: [facility] OBGYNComment on above:Urinary tract infection without hematuria, site unspecified (Primary Dx); Third trimester ([facility] 32 weeks gestation of ([facility])Start: 08-25-2025 End: 31-98-8117Nqqurl Lela LALA Work Phone: [facility] OBGYNStart: 08-25-2025 End: 27-41-7133Uhiidu Lela LALA Work Phone: [facility] OBGYNStart: 08-22-2025 End: 77-26-5138Fdaerxofe Result EncounterCorey Tulio DO Work Phone: noms External Department UnsolicitedStart: 08-22-2025 End: 72-95-4993Nnpcozgto Result EncounterCorey Tulio DO Work Phone: noms External Department UnsolicitedStart: 08-19-2025 End: 13-59-8665Xeouwgzqq Result EncounterCorey Tulio DO Work Phone: noms External Department UnsolicitedStart: 08-19-2025 End: 06-47-9402Bmizldaag Result EncounterCorey Tulio DO Work Phone: noms External Department UnsolicitedStart: 08-11-2025 End: 04-90-0057Dgvbop outpatient visit 15 minutesMunira LALA Work Phone: [facility] OBGYNComment on above:Third trimester ([facility]); 30 weeks gestation of ([facility])Start: 08-11-2025 End: 25-80-2355msqidncayuUCI RAMEYNot AvailableStart: 07-27-2025 End: 19-84-4866Ehkkmaros Olmstead NP Work Phone: [facility] OBGYNStart: 07-27-2025 End: 77-68-9981Uqqoyz Quinn Olmstead NP Work Phone: [facility] OBGYNStart: 07-27-2025 End: 05-50-5711whgslxddvbOSFGHULW EBERLYNot AvailableStart: 07-27-2025 End: 74-55-2288Idjute outpatient visit 15 minutesDarlene Olmstead NP Work Phone: [facility] OBGYNComment on above:Anemia, unspecified type (Primary Dx); 28 weeks gestation of ([facility]); Third trimester ([facility]); Elevated glucose tolerance testStart: 07-25-2025 End: 94-43-6904Akdfcnmly Result EncounterGeneric External Data ProviderNOMS External Department UnsolicitedStart: 07-25-2025 End: 68-55-9297Gktovailj Result EncounterGeneric External Data ProviderNOMS External Department UnsolicitedStart: 07-13-2025 End: 99-28-4767Sbkshe outpatient visit 15 minutesCorey Tulio DO Work Phone: [facility] OBGYNComment on above:Cystitis (Primary Dx); 26 weeks gestation of ([facility]); Second trimester ([facility]); Gastroesophageal reflux in ([facility])Start: 07-13-2025 End: 53-43-5912pnqkgsepviGYLVJ FAZIONot AvailableStart: 07-13-2025 End: 53-64-5715Ciotoz flowsheetCorey Tulio DO Work Phone: [facility]BGYNStart: 07-13-2025 End: 49-03-1175Fgfmep flowsheetCorey Tulio DO Work Phone: [facility] OBGYNStart: 06-15-2025 End: 74-64-9272Dzenaq flowsheetCorey Tulio DO Work Phone: [facility]BGYNStart: 06-15-2025 End: 94-53-6001Ptpuqh flowsheetCorey Tulio DO Work Phone: [facility]BGYNStart: 06-15-2025 End: 92-36-6552Iznnqq outpatient visit 15 minutesCorey Tulio DO Work Phone: [facility] OBGYNComment on above:22 weeks gestation of ([facility]); Second trimester ([facility]); Diabetes mellitus screeningStart: 06-15-2025 End: 34-82-3764gcgvdenrrzVRAUJ FAZIONot AvailableStart: 05-31-2025 End: 36-82-6292pjctawirimVQL RAMBREEZYNot AvailableStart: 05-18-2025 End: 48-80-5187Rgqoiz outpatient visit 15 minutesMunira LALA Work Phone: [facility] OBComment on above:Screening, , for anatomic survey ([facility]); STD exposure; Vaginal discharge; Second trimester ([facility]); 18 weeks gestation of ([facility])Start: 05-18-2025 End: 71-12-4316wkhneqwdosIRQ Love AvailableStart: 05-18-2025 End: 80-46-2998Zyoghv flowsheetMunira LALA Work Phone: [facility] OBStart: 05-18-2025 End: 20-27-3582Ryrbsl flowsheetMunira LALA Work Phone: [facility] OBStart: 05-18-2025 End: 15-94-1788Rixtswzr Result EncounterMunira LALA Work Phone: [facility] External Department UnsolicitedStart: 04-06-2025 End: 90-91-2164Izckre flowsheetCorey Tulio DO Work Phone: [facility] OBStart: 04-06-2025 End: 18-99-6823Uuneyp flowsheetCorey Tulio DO Work Phone: [facility] BCP OBStart: 04-06-2025 End: 00-76-2418Oxcbwf outpatient visit 15 minutesCorey Tulio DO Work Phone: NOMS BCP OBComment on above:First trimester ; 12 weeks gestation of ; Urinary tract infection without hematuria, site unspecified; Other iron deficiency anemiaStart: 04-06-2025 End: 64-46-8298ovbqaimxifRQDXI FAZIONot AvailableStart: 04-05-2025 End: 92-52-5990Wlhoau Heide Hernandes [employer] HEL[employer] Work Phone: NOMS CI FMStart: 04-05-2025 End: 81-47-2939Xkaouz Heide Hernandes [employer] HELPER Work Phone: NOMS CI FMStart: 04-05-2025 End: 82-76-5749Psoxqn outpatient visit 25 minutesShgaye Hernandes [employer] HELPER Work Phone: noMS CI FMComment on above:Jaw pain (Primary Dx); Major depressive disorder, single episode, 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) (CMS/HCC); Otalgia of both earsStart: 04-05-2025 End: 34-98-5606kiapkhiayeLLBCZQ M SHIVELYNot AvailableStart: 04-01-2025 End: 59-22-6911Osxnyghja Result EncounterGeneric External Data ProviderNOMS External Department UnsolicitedStart: 04-01-2025 End: 01-16-1423Wjaoblwdr Result EncounterGeneric External Data ProviderNOMS External Department UnsolicitedStart: 03-10-2025 End: 14-41-0348sqfxwwwniqVJOQKN SHIVELYNot AvailableStart: 03-10-2025 End: 46-86-7058Unufjt outpatient visit 5 minutesNoms Bcp Ob Tulio NurseNOMS BCP OBComment on above:GA: 0y4lOamwp: 03-10-2025 End: 03-84-1764tqbuzhuzseLSGOSP SHIVELYNot AvailableStart: 09-07-2024 End: 95-48-2909Aaqsfc flowsheetCorey Tulio DO Work Phone: [facility] BCP OBStart: 09-07-2024 End: 63-26-7076Sntkkh flowsheetCorey Tulio DO Work Phone: noms BCP OBStart: 09-07-2024 End: 68-05-3230Faotph outpatient visit 15 minutesCorey Tulio DO Work Phone: noms BCP OBComment on above:PCOS (polycystic ovarian syndrome); Hormone imbalance; Pelvic pain in female; Pain in female genitalia on intercourseStart: 09-07-2024 End: 19-23-6724vvxnfebkraKEJLB FAZIONot AvailableStart: 06-15-2024 End: 55-65-4180Tldtqdjut Result EncounterGeneric External Data ProviderNOMS External Department UnsolicitedStart: 06-15-2024 End: 79-14-9251Cxwtgqexo Result EncounterGeneric External Data ProviderNOMS External Department UnsolicitedStart: 01-02-2022 End: 14-24-7748hwzyworwpkZI HEAVENLY DEL REALKFacility:Z4Vbtnl: 10-12-2021 End: 32-89-7129txytipgawfRU HEAVENLY KARASIKFacility:G3Xhufz: 05-05-2021 End: 35-47-2636mprrqclaloND EDYTAEN ALDAFacility:H1 Procedures DateProcedureProcedure DetailPerforming ClinicianStart: 74-55-1963Ilxtp dip stick/tablet rgnt non-auto w/o micrscpKristina Ishan [employer] D[employer]LLER HELPER Work Phone: Start: 70-85-6629XYEAHOK TOLERANCE 3 HOURCorey Tulio DO Work Phone: Start: 11-40-3869XWZ UA (CLEAN/CATCH) HEADING PINNER/MICRO IF IND.Shania Tulio DO Work Phone: Start: 74-82-9450Oxany dip stick/tablet rgnt non-auto w/o micrscpAmy Gigi LALA Work Phone: Start: 24-32-1144Qoxgp dip stick/tablet rgnt non-auto w/o micrscpKristina Ishan [employer] D[employer]LLER HELPER Work Phone: Start: 54-91-6204HWI CBC WITH AUTO DIFFCorey Tulio DO Work Phone: Start: 49-22-1851Xadcd dip stick/tablet rgnt non-auto w/o micrscpCorey Tulio DO Work Phone: Start: 30-21-1907Kzhef dip stick/tablet rgnt non-auto w/o micrscpCorey Tulio DO Work Phone: Start: 76-91-7739JCEUDBZUM VAGINITIS (HTRX)Munira LALA Work Phone: Start: 66-97-8559Zorqp dip stick/tablet rgnt non-auto w/o micrscpAmy Gigi LALA Work Phone: Start: 25-49-2895Ruanm dip stick/tablet rgnt non-auto w/o micrscpCorey Tulio DO Work Phone: Start: 17-28-2086OTR CBC WITH AUTO DIFFCorey Tulio DO Work Phone: Start: 60-51-7858MS PELVIS W/ TRANSVAGINALGeneric External Data ProviderStart: 33-00-9588CHC ANTI-MULLERIAN HORMONECorey Tulio DO Work Phone: Start: 56-66-1362CNI CBC WITH AUTO DIFFCorey Tulio DO Work Phone: Start: 89-57-8919TCX DEHYDROEPIANDROSTERONECorey Tulio DO Work Phone: Start: 49-51-9184ATT DHEA SULFATEGeneric External Data ProviderStart: 25-53-0016BAI FOLLICLE STIMULATING HORMONEGeneric External Data ProviderStart: 03-44-8074LCG LUTEINIZING HORMONEGeneric External Data Provider Plan of Treatment DateCare ActivityDetailAuthorStart: 09-13-2025 End: 51-94-4270Vtlpjis encounter tjinjdwsb31/18/2025 9:20 AM EST Routine [facility] [address] [place] [address] [address] [place], [id number] Shania Antunez DO [address] [place] [address] NOMKelley Deion OBGYNStart: 08-25-2025 End: 21-66-3981Wqfpgqv encounter bikwkodxl48/30/2025 3:20 PM EDT Routine [facility] [address] [place], [id number] Munira Garcia PA [address] [place] [address] NOMKelley Deion OBGYNStart: 07-27-2025 End: 64-85-6975Xmslhkgesjg of glucose 3 hours after glucose challenge for glucose tolerance testGlucose tolerance, 3 hours Lab Routine Elevated glucose tolerance test Expected: 07/27/2025 (Approximate), Expires: 07/27/2026[facility] Work Phone: comment on above:Expected: 07/27/2025 (Approximate), Expires: 07/27/2026Start: 07-27-2025 End: 42-62-0225Hdkeiiw encounter kvezgfzvb13/01/2025 1:50 PM EDT Routine [facility] [address] [place], [id number] Darlene Olmstead, [employer] HELPER [address] [place] [address] NOMKelley [place] OBGYNStart: 07-13-2025 End: 94-43-9643Adkckrc encounter procedureNO Deion OBGYNComment on above: ArrivedStart: 07-13-2025 End: 16-83-7495KZ for pregnancyUS OB follow up transabdominal approach Imaging Routine Second trimester ([facility]) Expected: 07/13/2025, Expires: 11/12/2025[facility] Work Phone: comment on above:Expected: 07/13/2025, Expires: 11/12/2025Start: 89-94-0258NPEGG-19 Vaccine ( season)COVID-19 Vaccine ( season)[facility]S HealthcareStart: 33-47-9706Yrwqwjyyg vaccinationNONV HealthcareStart: 06-15-2025 End: 88-88-5084SDT panel - Blood by Automated countCBC Lab Routine Diabetes mellitus screening Expected: 06/15/2025 (Approximate), Expires: 06/15/2026[facility] Work Phone: comment on above:Expected: 06/15/2025 (Approximate), Expires: 06/15/2026Start: 06-15-2025 End: 85-73-2900Hnlqrchrhmg of glucose 1 hour after glucose challenge for glucose tolerance testGlucose tolerance, 1 hour Lab Routine Diabetes mellitus screening Expected: 06/15/2025 (Approximate), Expires: 06/15/2026NON[facility] HealthcareComment on above:Expected: 06/15/2025 (Approximate), Expires: 06/15/2026Start: 06-15-2025 End: 94-61-8920Ckktrgl encounter procedureNONV BCP OBComment on above:Arrived Start: 05-31-2025 End: 49-18-1305Jmbqzeehcdgv / ancillary services /05/2025 8:30 AM EDT Ancillary Procedure [facility] [address] [place] [address] NOMS BCP OBStart: 05-18-2025 End: 30-66-1702Zuetgnd encounter udouweefh23/23/2025 3:30 PM EDT Routine [facility] [address] [place] [address] Munira Garcia PA [address] [place] [address] ArrivedNOMS BCP OBComment on above: ArrivedStart: 05-18-2025 End: 89-62-7222Aqthp fetoprotein, maternalAlpha fetoprotein, maternal Lab Routine 18 weeks gestation of ([facility]) Expected: 05/18/2025 (Approximate), Expires: 06/18/2025NOMS HealthcareComment on above:Expected: 05/18/2025 (Approximate), Expires: 06/18/2025Start: 05-18-2025 End: 48-25-0204LG for pregnancyUS OB 14+ weeks anatomy scan Imaging Routine Screening, , for anatomic survey ([facility]) Expected: 05/18/2025, Expires: 08/18/2025NOMS HealthcareComment on above:Expected: 05/18/2025, Expires: 08/18/2025Start: 05-04-2025 End: 26-13-1659Spqrqsz encounter zxgiwsuff79/09/2025 2:30 PM EDT Routine [facility] [address] [place] [phone] Munira Garcia PA [address] [place] [address] NOMS BCP OBStart: 04-06-2025 End: 10-17-8817Cxuqivh encounter procedureNOMS BCP OBComment on above:Arrived Start: 04-05-2025 End: 21-62-4589Cdpquid encounter procedureNOMS BCP OBComment on above:Arrived Start: 03-10-2025 End: 33-74-9395UGL/RhABO/Rh Lab Routine Missed menses , unspecified gestational age Expected: 03/10/2025 (Approximate), Expires: 03/10/2026NOMS HealthcareComment on above:Expected: 03/10/2025 (Approximate), Expires: 03/10/2026Start: 03-10-2025 End: 70-54-7319Yqylg type and Indirect antibody screen panel - BloodType and screen Lab Routine Missed menses , unspecified gestational age Expected: 03/10/2025 (Approximate), Expires: 03/10/2026NOMS HealthcareComment on above:Expected: 03/10/2025 (Approximate), Expires: 03/10/2026Start: 03-10-2025 End: 53-76-2444Vaszs of abuse panel - Urine by Screen methodRapid drug screen, urine Lab Routine , unspecified gestational age Encounter for supervision of normal first in first trimester Expected: 03/10/2025 (Approximate), Expires: 03/10/2026[facility] HealthcareComment on above:Expected: 03/10/2025 (Approximate), Expires: 03/10/2026Start: 03-09-2025 End: 31-11-2124BA Pelvis transvaginalUS OB transvaginal Imaging Routine Missed menses Expected: 03/09/2025, Expires: 06/09/2025[facility] Work Phone: comment on above:Expected: 03/09/2025, Expires: 06/09/2025Start: 11-01-2024 End: 61-62-8029Fohxwiz encounter iojnqukbe67/06/2025 1:20 PM EST Consult [facility] [address] [place] [phone] Shania Antunez, DO [address] [place] [address] [facility] OBStart: 09-07-2024 End: 16-58-9615Gjewqgd encounter yzcdtkqlp56/12/2024 8:40 AM EST Office Visit N[facility] [address] [place] [phone] Shania Antunez, DO [address] [place] [address] N[facility] OBStart: 88-37-6202Tcvqqlyrf vaccination Influenza Vaccine (#1)NOMS HealthcareStart: 01-34-4381Wyzrabatb B Vaccines (1 of 3 - 19+ 3-dose series)Hepatitis B Vaccines (1 of 3 - 19+ 3-dose series)[facility]S HealthcareStart: 85-19-0102Wxpkbfwikyzv Vaccine: Pediatrics (0 to 5 Years) and At-Risk Patients (6 to 64 Years) (1 of 2 - PCV)Pneumococcal Vaccine: Pediatrics (0 to 5 Years) and At-Risk Patients (6 to 64 Years) (1 of 2 - PCV)NOM HealthcareStart: 90-12-4123Hcxkdyiwnpjng B Vaccine (1 of 2 - Standard) Meningococcal B Vaccine (1 of 2 - Standard)NOM HealthcareStart: 03-73-3917SSM Vaccines (1 - 3-dose series)HPV Vaccines (1 - 3-dose series)[facility] Start: 81-51-6052Uzumshs of varicella vaccinationVaricella Vaccines (1 of 2 - 13+ 2-dose series)NOM HealthcareStart: 40-16-2192DUbH/Tdap/Td Vaccines (1 - Tdap)DTaP/Tdap/Td Vaccines (1 - Tdap)NOM HealthcareStart: 00-56-3177MBI Vaccines (1 of 1 - Standard series)MMR Vaccines (1 of 1 - Standard series)[facility] HospitalBacteria identified in Urine by CultureUrine culture Microbiology Routine Missed menses Ordered: 03/10/2025[facility] HealthcareComment on above: Ordered: 03/10/2025acteria identified in Urine by CultureUrine culture Microbiology Routine Cystitis Ordered: 07/13/2025[facility] HealthcareComment on above:Ordered: 07/13/2025BC W Auto Differential panel - BloodCBC and differential Lab Routine Missed menses , unspecified gestational age Ordered: 03/10/2025[facility] HealthcareComment on above:Ordered: 03/10/2025BC W Auto Differential panel - BloodCBC and differential Lab Routine 32 weeks gestation of ([facility]) Ordered: 08/25/2025[facility] Work Phone: comment on above:Ordered: 08/25/2025HLAMYDIA TRACHOMATIS (GENITO/STI)CHLAMYDIA TRACHOMATIS (GENITO/STI) Lab Routine Vaginal discharge Ordered: 05/18/2025[facility] HealthcareComment on above:Ordered: 05/18/2025 Hemoglobin A1c/Hemoglobin.total in BloodHemoglobin A1c Lab Routine Missed menses , unspecified gestational age Ordered: 03/10/2025[facility] Comment on above:Ordered: 03/10/2025Hepatitis B virus surface Ag [Presence] in Serum or Plasma by ImmunoassayHepatitis B surface antigen Lab Routine Missed menses , unspecified gestational age Ordered: 03/10/2025[facility] Comment on above:Ordered: 03/10/2025Hepatitis C virus Ab [Presence] in Serum or Plasma by ImmunoassayHepatitis C antibody Lab Routine Missed menses , unspecified gestational age Ordered: 03/10/2025[facility] HealthcareComment on above: Ordered: 03/10/2025HIV-1/HIV-2 antigen/antibody combination immunoassayHIV-1 and HIV-2 antibodies Lab Routine Missed menses , unspecified gestational age Ordered: 03/10/2025[facility] HealthcareComment on above:Ordered: 03/10/2025 Neisseria gonorrhoeae DNA [Presence] in Unspecified specimen by STEVO with probe detectionNeisseria gonorrhea DNA probe, direct Lab Routine Vaginal discharge Ordered: 05/18/2025[facility] HealthcareComment on above:Ordered: 05/18/2025 ProgesteroneProgesterone Lab Routine Hormone imbalance Ordered: 09/07/2024[facility] Work Phone: comment on above:Ordered: 09/07/2024eagin Ab [Presence] in Serum by RPRRPR Lab Routine Missed menses , unspecified gestational age Ordered: 03/10/2025[facility] HealthcareComment on above:Ordered: 03/10/2025Rubella antibody, IgGRubella antibody, IgG Lab Routine Missed menses , unspecified gestational age Ordered: 03/10/2025[facility] HealthcareComment on above:Ordered: 03/10/2025SURESWAB(R) ADVANCED VAGINITIS PLUS, TMASURESWAB(R) ADVANCED VAGINITIS PLUS, TMA Pathology and Cytology Routine Vaginal discharge Ordered: 05/18/2025[facility] Work Phone: comment on above:Ordered: 05/18/2025US Pelvis transvaginalUS OB transvaginal Imaging Routine Missed menses 03/10/2025 2:28 PM [facility] Payers DatePayer CategoryPayerPolicy ID2023Medicaid [id number] 2023Medicaid (Managed Care) [id number] [id number] [id number] 2.16.840.1.198131.3.57[id number] 2.16.840.1.310365.3.57[id number] 2.16840.1.202672.3.57[id number] 2.840.1.102267.3.57[id number] 2.840.1.457749.3.57[id number] 2.16840.1.730556.3.57[id number] 2.840.1.568955.3.57[id number] 2.16840.1.906575.3.57[id number] 2.840.1.993614.3.57[id number] 2.16840.1.448826.3.57[id number] 2.16840.1.983516.3.57[id number] 2.16840.1.530112.3.57[id number] 2.16840.1.218561.3.57[id number] 2.16.840.1.686103.3.57[id number] Social History DateTypeDetailFacilityStart: 12-30-2023 End: 29-46-5858Iynpczo smoking status NHISNever smoked tobaccoNONV Healthcare Start: 12-30-2023 End: 97-30-5199Yapdezh of Social functionNOMS HealthcareStart: 12-30-2023 End: 83-59-9144Qyneuuk use panelNONV HealthcareStart: 82-92-8094Sue assigned at birthNot on fileNONV HealthcareStart: 64-86-8676NlljrdycgYFUW HealthcareStart: 77-35-8452Ohnqzhl use and exposureSmokeless tobacco non-userNOMS Healthcare Start: 04-05-2025 End: 43-57-1570Tgjxaqcms beverage intakeLifetime non-drinker (finding)[facility] HealthcareStart: 99-28-7119VuuNgsdyyWKMP HealthcareNEGATED: Highlighted row Start: NINFHistory of tobacco usePassive smokerRIVERTON HOSPITAL Healthcare Functional Status PafqXmkcrekxcfAeinswMcrxbbul23-50-9228Vgcnlvb Health Questionnaire 2 item (PHQ- 2) [Reported][facility] Clinical Notes 09-07-2024 to 08-25-2025 Note Date & VtsjRxffKsryhnzt74-20-5988 History of Present illness Narrative* Darlene Olmstead NP - 08/25/2025 3:20 PM EDT Reason for Appointment: Patient ID: Danette Ray Ayala is a 19 y.o. female who presents [...] without prior episode (HCC) 12/30/2023 Exercise-induced asthma ([facility]) 12/30/2023 Patellofemoral syndrome of right knee 12/30/2023 PCOS (polycystic ovarian syndrome) 09/07/2024 Size of fetus inconsistent with dates, antepartum ([facility]) 08/10/2025 Resolved Ambulatory Problems Diagnosis Date Noted [...] nursing note reviewed. Exam conducted with a photogeologist present. Vitals: Estimated body mass index is 28.97 kg/m as calculated from the following: Height as of 04/05/25: 5' 4 . Weight as of this encounter: 168 lb 12.8 oz. BP: 118/60 Patient's last menstrual period was 01/07/2025. Assessment/Plan ICD-10-CM 1. Third trimester ([facility]) Z34.93 2. 32 weeks gestation of ([facility]) Z3A.32 POCT urinalysis dipstick manually resulted [...] of: Darlene Olmstead NP documented in this encounterCenterPointe HospitalIkipoepzxp48-69-9505 History of Present illness Narrative* SPIKE Guzman - 08/11/2025 3:00 PM EDT Reason for Appointment: Patient ID: Danette Ayala is a 19 y.o. female who presents [...] Size of fetus inconsistent with dates, antepartum ([facility]) 08/10/2025 Resolved Ambulatory Problems Diagnosis Date Noted [...] calculated from the following: Height as of 25: 5' 4 . Weight as of this encounter: 168 lb 8 oz. BP: 110/62 Patient's last menstrual period was 01/07/2025. ASSESSMENT & PLAN ICD-10-CM 1. Third trimester ([facility]) Z34.93 POCT urinalysis dipstick manually resulted 2. 30 weeks gestation of ([facility]) Z3A.30 Return OB: Patient presents today for [...] surgical history on file. documented in this encounterCenterPointe HospitalCwejqpxibn02-81-2418 History of Present illness Narrative* Darlene Olmstead NP - 07/27/2025 1:50 PM EDT Reason for Appointment: Patient ID: Danette Ayala is a 19 y.o. female who presents [...] nursing note reviewed. Exam conducted with a photogeologist present. Vitals: Estimated body mass index is 28.84 kg/m as calculated from the following: Height as of 04/05/25: 5' 4 . Weight as of this encounter: 168 lb. BP: 112/70 Patient's last menstrual period was 01/07/2025. ASSESSMENT & PLAN ICD-10-CM 1. Anemia, unspecified type D64.9 iron polysaccharides (ProFe) 391.3 (180 Fe) MG capsule 2. 28 weeks gestation of ([facility]) Z3A.28 POCT urinalysis dipstick manually resulted 3. Third trimester ([facility]) Z34.93 4. Elevated glucose tolerance test [...] of: Darlene Olmstead NP documented in this encounterCenterPointe HospitalQkhyqbtgut95-59-2099 History of Present illness Narrative* Darlene Olmstead NP - 07/13/2025 3:20 PM EDT Reason for Appointment: Patient ID: Danette Ayala is a 19 y.o. female who presents [...] nursing note reviewed. Exam conducted with a photogeologist present. Vitals: Estimated body mass index is [...] by Darlene Olmstead NP on behalf of: DO Radha Oakleyally signed by Darlene Olmstead NP at 07/13/2025 4:41 PM EDT documented in this encounterCenterPointe HospitalTzndrshtct68-93-0097 History of Present illness Narrative* SPIKE Guzman [...] PLAN ICD-10-CM 1. 22 weeks gestation of ([facility]) Z3A.22 POCT urinalysis dipstick manually resulted 2. Second trimester ([facility]) Z34.92 POCT urinalysis dipstick manually resulted 3. [...] of: Shania Antunez DO documented in this encounterCenterPointe HospitalGjsqtyyvii99-64-3616 History of Present illness Narrative* SPIKE Guzman [...] ICD-10-CM 1. Screening, , for anatomic survey ([facility]) Z36.89 US OB 14+ weeks anatomy scan US OB 14+ weeks anatomy scan 2. STD exposure Z20.2 3. Vaginal discharge N89.8 SURESWAB(R) ADVANCED VAGINITIS PLUS, TMA CHLAMYDIA TRACHOMATIS (GENITO/STI) Neisseria gonorrhea DNA probe, direct 4. Second trimester ([facility]) Z34.92 5. 18 weeks gestation of ([facility]) Z3A.18 POCT urinalysis dipstick manually resulted Alpha [...] behalf of: SPIKE Guzman documented in this encounterCenterPointe HospitalMbvltccoau17-14-4488 History of Present illness Narrative* Shania Antunez DO - 04/06/2025 1:20 PM EDT Reason for Appointment: Patient ID: Danette Ayala is a 19 y.o. female who presents for Routine Visit Patient presents today for Return OB appointment. MEDICATIONS Current Outpatient Medications Medication Instructions ondansetron ODT (ZOFRAN-ODT) 4 mg, Oral, Every 6 hours PRN ALLERGIES Allergies Allergen Reactions Penicillins Unknown PROBLEMS Active Ambulatory Problems Diagnosis Date Noted Current severe episode of major depressive disorder without psychotic features without prior episode ([facility]) 12/30/2023 Exercise-induced asthma 12/30/2023 Patellofemoral syndrome of [...] nursing note reviewed. Exam conducted with a photogeologist present. Vitals: Estimated body mass index is [...] or undercooked meat, and stay away from [facility]. Patient has been consulted regarding any further [...] of: Shania Antunez DO documented in this encounterCenterPointe HospitalFoqatjypyl63-45-1528 History of Present illness Narrative* Jose Antonio Hernandes NP - 04/05/2025 11:00 AM EDT Images from the original note were not included. Subjective Patient ID: Danette Ayala is a 19 y.o. female who presents [...] your allergy medication. You reported that the DOFFER said you could take zyrtec for your allergies. Continue on this medication. The medication should help with the fluid in the inner ear. No follow-ups on file. documented in this encounterCenterPointe HospitalAgejyovcti56-33-1465 History of Present illness Narrative* Heather Savage [...] or undercooked meat, and stay away from [facility]. Patient has also been advised to not [...] by: Heather Savage LPN documented in this encounterCenterPointe HospitalEmsrhlpdxj59-65-1738 History of Present illness Narrative* Adela Zamarripa LPN - 09/07/2024 1:20 PM EST Reason for Appointment: Patient ID: Danette Ayala is a 19 y.o. female who presents [...] disorder without psychotic features without prior episode ([facility]) 12/30/2023 Exercise-induced asthma ([facility]) 12/30/2023 Patellofemoral syndrome of right knee 12/30/2023 [...] nursing note reviewed. Exam conducted with a photogeologist present. Vitals: Estimated body mass index is [...] single episode, 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) ([facility]) Otalgia of both ears documented in this encounter [facility] HealthcareEvaluation note* Diagnosis First trimester state, incidental 12 weeks gestation of Urinary tract infection without hematuria, site unspecified Other iron deficiency anemia documented in this encounter [facility] HealthcareEvaluation note* Diagnosis Screening, , for anatomic survey ([facility]) Encounter for anatomic survey STD exposure Vaginal discharge Leukorrhea, not specified as infective Second trimester ([facility]) state, incidental 18 weeks gestation of ([facility]) documented in this encounter [facility] HealthcareEvaluation note* Diagnosis 22 weeks gestation of ([facility]) Second trimester ([facility]) state, incidental Diabetes mellitus screening Screening for diabetes mellitus documented in this encounter [facility]* Diagnosis Cystitis- Primary Unspecified cystitis 26 weeks gestation of ([facility]) Second trimester ([facility]) state, incidental Gastroesophageal reflux in ([facility]) documented in this encounter [facility]* Diagnosis Anemia, unspecified type- Primary 28 weeks gestation of ([facility]) Third trimester ([facility]) state, incidental Elevated glucose tolerance test Impaired glucose tolerance test documented in this encounter [facility]* Diagnosis Third trimester ([facility]) state, incidental 30 weeks gestation of ([facility]) documented in this encounter [facility]* Diagnosis Urinary tract infection without hematuria, site unspecified- Primary Third trimester ([facility]) state, incidental 32 weeks gestation of ([facility]) documented in this encounter [facility] Summary Purpose Family History No Family History Records FoundNo Family History Records Found Advance Directives No Advanced Directives Records FoundNo Advanced Directives Records Found Additional Source Comments INFORMATION SOURCE (unrecogn ized section and content) DATE CREATED AUTHOR 01/04/2022 [facility] DATE CREATED AUTHOR AUTHOR'S TAYLAIZ ATANTWON 08/13/2025 [facility] EPIC Care Teams (unrecognized sec tion and content) Team MemberRelationshipSpecialtyStart DateEnd Date Eliana Marquis MD [address] [facility] [address] [place] [address] [facility] - [facility]03/04/23 Jose Antonio Hernandes NP [address] [facility] [address] [place] [address] PCP - [facility]07/27/24Team MemberRelationshipSpecialtyStart DateEnd Date Eliana Marquis MD [address] [facility] [address] [place] [address] PCP - Generalm[facility]03/04/23 Jose Antonio Hernandes STONE DRILLER HELPER [address] [place] [address] PCP - [facility]07/27/24Team MemberRelationshipSpecialtyStart DateEnd Date Eliana Marquis MD [address] [place] [address] PCP - [facility] Medicine03/04/23Team MemberRelationshipSpecialtyStart DateEnd Date Eliana Marquis MD [address] [place] [address] PCP - [facility]03/04/23 Jose Antonio Hernandes STONE DRILLER HELPER [address] [place] [address] PCP - [facility]07/27/24Team MemberRelationshipSpecialtyStart DateEnd Date Eliana Marquis MD [address] [place] [address] PCP - [facility] Medicine03/04/23 Jose Antonio Hernandes, STONE DRILLER HELPER [address] [place] [address] PCP - [facility]07/27/24Team MemberRelationshipSpecialtyStart DateEnd Date Eliana Marquis MD [address] [place] [address] PCP - [facility] Medicine03/04/23 Jose Antonio Hernandes STONE DRILLER HELPER [address] [place] [address] [facility] - [facility]07/27/24Team MemberRelationshipSpecialtyStart DateEnd Date Eliana Marquis MD [address] [place] [address] PCP - [facility]03/04/23 Jose Antonio Hernandes STONE DRILLER HELPER [address] [place] [address] [facility]07/27/24Team MemberRelationshipSpecialtyStart DateEnd Date Eliana Marquis MD [address] [place] [address] PCP [facility]03/04/23 Jose nAtonio Hernandes, STONE DRILLER HELPER [address] [place] [address] [facility]07/27/24Team MemberRelationshipSpecialtyStart DateEnd Date Eliana Marquis MD [address] [place] [address] PCP [facility]03/04/23 Jose Antonio Hernandes STONE DRILLER HELPER [address] [place] [address] PCP [facility]07/27/24Team MemberRelationshipSpecialtyStart DateEnd Date Eliana Marquis MD [address] [place] [address] [facility]03/04/23Team MemberRelationshipSpecialtyStart DateEnd Date Eliana Marquis MD [address] [place] [address] PCP - GeneralFamily Medicine03/04/23Team MemberRelationshipSpecialtyStart DateEnd Date Eliana Maqruis MD [address] [place] [address] PCP - GeneralFamily Medicine03/04/23Team MemberRelationshipSpecialtyStart DateEnd Date Eliana Marquis MD [address] [place] [address] PCP - GeneralFamily Medicine03/04/23Team MemberRelationshipSpecialtyStart DateEnd Date Eliana Marquis MD [address] [place] [address] PCP - GeneralFamily Medicine03/04/23Team MemberRelationshipSpecialtyStart DateEnd Date Eliana Marquis MD [address] [place] [address] PCP - GeneralFamily Medicine03/04/23Team MemberRelationshipSpecialtyStart DateEnd Date Eliana Marquis MD [address] [place] [address] PCP - GeneralFamily Medicine03/04/23Team MemberRelationshipSpecialtyStart DateEnd Date Eliana Marquis MD [address] [place] [address] PCP - GeneralFamily Medicine03/04/23Team MemberRelationshipSpecialtyStart DateEnd Date Eliana Marquis MD [address] [facility] [address] [place] [address] [facility] - [facility]/04/23 Jose Antonio Hernandes NP [address] [facility] [address] [place] [address] PCP - [facility]//Team MemberRelationshipSpecialtyStart DateEnd Date Eliana Marquis MD [address] [facility] [address] [place] [address] PCP - [facility]03/04/23Team MemberRelationshipSpecialtyStart DateEnd Date Eliana Marquis MD [address] [facility] [address] [place] [address] PCP - [facility]03/04/23 Reason for Visit (unrecogniz ed section [...] BE BASED ON THE PRIMARY CLINICAL RECORDS. [employer] [facility]. provides no warranty or guarantee of the accuracy or completeness of information in this document.
[2025-08-26 11:02] LABS: Hematocrit 28.5 % (36.0-48.0); Hemoglobin 9.4 g/dL (12.0-16.0); Immature Granulocytes Abs Auto 0.03 10^3/uL (0.00-0.03); Immature Granulocytes Pct Auto 0.4 % (0.0-0.5); Lymphocytes Absolute Auto 1.0 10^3/uL (1.2-3.8); Mean Corpuscular HGB Conc 33.0 g/dL (29.9-35.2); Mean Corpuscular Hemoglobin 26.1 pg (26.7-34.0); Mean Corpuscular Volume 79.2 fL (81.0-99.0); Platelet Count 168 10^3/uL (150-450); Red Blood Count 3.60 10^6/uL (4.20-5.40); White Blood Count 7.5 10^3/uL (4.0-11.0)
== END 2025-08-26 10:49 | disposition home or self-care (01) ==
LOC: LAB 10:48
PROVIDERS: PCP Family Medicine; Visit Provider Nurse Practitioner Family
DX: Z34.92 Encounter for supervision of normal pregnancy, unspecified, second trimester (principal); Z3A.32 32 weeks gestation of pregnancy
CPT/HCPCS: 36415; 85025

== ENCOUNTER 2025-08-27 12:43 | Outpatient (OUT) | payer OTHER, SELFPAY ==
--- OUTSIDE RECORDS SUMMARY | 2024-03-01 09:30 | XMS_ITS ---
Author Organization [facility] Address [address] [place] [address] Care Team Providers Care Java Web Services Developer Name Role Phone Bethany Wells Primary Care Provider Nate Gutierrez [facility] [phone] REASON FOR VISIT FILLING Encounters Encounter Location Date Provider Diagnosis [address] [address] 03/01/2024 Nate Gutierrez Plan Of Treatment No Information Progress Notes * BDOB:11/2004 (19 yo F)Acc No.[id number]:03/01/2024 Patient:?LUCY :?Nate Gaytan DDSDOB:2005???Age:18 Y???Sex: FemaleDate:03/01/2024hone:[phone]:[address] [id number]:Bethany Guerrero Subjective: * Chief Complaints: * F ILLING * Electronic signature of Nate Gutierrez on 08/27/2025 at 12:46 PM EDTSign off status: Pending * Provider: Alyssia Gaytan DDS Date: 0 03/01/2024 Generated for Printing/Faxing/eTransmitting on:?08/27/2025 12:46 PM EDT
--- OUTSIDE RECORDS SUMMARY | 2024-08-16 10:00 | XMS_ITS ---
Author Organization [facility] Address [address] [place] [address] Care Team Providers Care Stripping Shovel Oiler Name Role Phone Bethany Wells Primary Care Provider [phone] Charlee Lawrence Unavailable [phone] REASON FOR VISIT 6 MONTHS Encounters Encounter Location Date Provider Diagnosis [facility] [address] [place] [address] 08/16/2024 Charlee Keithgamaliel Plan Of Treatment No Information Progress Notes * AYALA BDOB:11/2004 (19 yo F)Acc No.[id number]:08/16/2024 Patient:?LUCY :?Charlee LawrenceDOB:2005???Age:18 Y???Sex: FemaleDate:08/16/2024hone:[phone]:SU[place]ER [place]U [id number]:Bethany Guerrero Subjective: * Chief Complaints: * 6 MONTHS * Electronic signature of Charlee Lawrence on 08/27/2025 at 12:46 PM EDTSign off status: Pending * Provider: Dru Lawrence Date: Generated for Printing/Faxing/eTransmitting on:?08/27/2025 12:46 PM EDT
--- OUTSIDE RECORDS SUMMARY | 2025-04-27 06:00 | XMS_ITS ---
Author Organization [facility] Address [address] [place] [address] Care Team Providers Care Middle School Spanish Teacher Name Role Phone Bethany Wells Primary Care Provider [phone] Dr. Adolfo Reagan [facility] [phone] REASON FOR VISIT JAW AND TOOTH PAIN Encounters Encounter Location Date Provider Diagnosis [facility] [address] [place] [address] 04/27/2025 Adolfo Reagan Plan Of Treatment No Information Progress Notes * BDOB:11/2004 (19 yo F)Acc No.[id number]:04/27/2025 Patient:? :Yelena Reagan DDSDOB:2005???Age:19 Y???Sex: FemaleDate:04/27/2025Phone:[phone]:SUDHEER YU [id number]:Bethany Guerrero Subjective: * Chief Complaints: * J AW AND TOOTH PAIN Billing Information: * Procedure Codes: * Electronic signature of Dr. Adolfo Reagan , [facility], [id number] on 08/27/2025 at 12:46 PM EDTSign off status: Pending * Provider: Parrish Reagan DDS Date: 0 04/27/2025 Generated for Printing/Faxing/eTransmitting on:?08/27/2025 12:46 PM EDT
--- OUTSIDE RECORDS SUMMARY | 2025-05-10 06:00 | XMS_ITS ---
Author Organization [facility] Address [address] [place] [address] Care Team Providers Care Chief Of Vital Statistics Name Role Phone Bethany Wells Primary Care Provider [phone] Dr. Adolfo Reagan [facility] [phone] REASON FOR VISIT JAW AND TOOTH PAIN Encounters Encounter Location Date Provider Diagnosis [facility] [address] [place] [address] 05/10/2025 Adolfo Reagan Plan Of Treatment No Information Progress Notes * BDOB:11/2004 (19 yo F)Acc No.[id number]:05/10/2025 Patient:? :Yelena Reagan DDSDOB:2005???Age:19 Y???Sex: FemaleDate:05/10/2025Phone:[phone]:SUDHEER YU [id number]:Bethany Guerrero Subjective: * Chief Complaints: * J AW AND TOOTH PAIN * Electronic signature of Dr. Adolfo Reagan , [facility], [id number] on 08/27/2025 at 12:46 PM EDTSign off status: Pending * Provider: Parrish Reagan DDS Date: 0 05/10/2025 Generated for Printing/Faxing/eTransmitting on:?08/27/2025 12:46 PM EDT
--- OUTSIDE RECORDS SUMMARY | 2025-07-27 13:50 | XMS_ITS | Encounter Summary ---
Author Organization [facility] Address [address] [facility] [place] [address] Care Team Providers Care Poker In Name Role Phone Eliana Flanagan MD Primary Care Provider [phone] Reason for Visit * ReasonCommentsRoutine Visit Encounter Details DateTypeDepartmentCare Team (Latest Contact Info)Ecwkqkebtit03/01/2025 1:50 PM EDTRoutine [facility] [place] [facility] [address] [place] [address] Darlene Olmstead, ASBESTOS REMOVAL SUPERVISOR [address] [place] [address] Anemia, unspecified type (Primary Dx); 28 weeks gestation of ([facility]); Third trimester ([facility]); Elevated glucose tolerance test Social History Tobacco UseTypesPacks/DayYears UsedDateSmoking Tobacco: NeverPassive Smoke Exposure: NeverSmokeless Tobacco: NeverAlcohol UseStandard Drinks/WeekComments Never0 (1 standard drink = 0.6 oz pure alcohol)PHQ-2AnswerDate RecordedPatient Health Questionnaire-2 Rlrmd418Estimated Date of Delivery AoulbvxhOkh81/19/2025Based on last menstrual period of 01/07/2025Sex and Gender InformationValueDate RecordedSex Assigned at BirthNot on fileLegal SexFemale 01/08/2023 6:51 PM EDTGender IdentityNot on fileSexual OrientationNot on file documented as of this encounter Last Filed Vital Signs Vital SignReadingTime TakenCommentsBlood Wnhzggqj281/7010 1:59 PM EDT Pulse--Temperature--Respiratory Rate--Oxygen Saturation--Inhaled Oxygen Concentration--Dkmeyn41.2 kg (168 lb)07/27/2025 1:59 PM EDTHeight--Body Mass [...] nursing note reviewed. Exam conducted with a rand maker present. Vitals: Estimated body mass index is 28.84 kg/m?? as calculated from the following: Height as of 04/05/25: 5' 4 . Weight as of this encounter: 168 lb. BP: 112/70 Patient's last menstrual period was 01/07/2025. ASSESSMENT & PLAN ICD-10-CM 1. Anemia, unspecified type D64.9 iron polysaccharides (ProFe) 391.3 (180 Fe) MG capsule 2. 28 weeks gestation of ([facility]) Z3A.28 POCT urinalysis dipstick manually resulted 3. Third trimester ([facility]) Z34.93 4. Elevated glucose tolerance test R73.09 [...] Plan of Treatment DateTypeDepartmentCare Team (Latest Contact Info)Kuyupokodgg78/18/2025 9:20 AM ESTRoutine [facility] [address] [place] [address] Alex Antunez DO [address] [place] [address] NameTypePriorityAssociated DiagnosesOrder ScheduleGlucose tolerance, 3 hoursLab Routine Elevated glucose tolerance test Expected: 07/27/2025 (Approximate), Expires: 07/27/2026documented as of this encounter Procedures Procedure NamePriorityDate/TimeAssociated DiagnosisCommentsPOCT URINALYSIS CMIDOTAJDtgxvbc10/01/2025 2:06 PM EDT 28 weeks gestation of ([facility]) documented in this encounter Results * [...] unspecified type- Primary 28 weeks gestation of ([facility]) Third trimester ([facility]) state, incidental Elevated glucose tolerance test Impaired glucose tolerance test documented in this encounter Care Teams Team MemberRelationshipSpecialtyStart DateEnd Date Eliana Flanagan MD [address] [place] [address] PCP - GeneralFamily Medicine03/04/23documented as of this encounter
--- OUTSIDE RECORDS SUMMARY | 2025-08-25 15:20 | XMS_ITS | Encounter Summary ---
Author Organization [facility] Address [address] [facility] [place] [address] Care Team Providers Care Scientific Programmer Name Role Phone Eliana Flanagan MD Primary Care Provider [phone] Reason for Visit * ReasonCommentsRoutine Visit Encounter Details DateTypeDepartmentCare Team (Latest Contact Info)Yuepeyarwut64/30/2025 3:20 PM EDTRoutine [facility] [address] [place] [phone] Munira Yu PA [address] [place], [facility]11 Urinary tract infection without hematuria, site unspecified (Primary Dx); Third trimester ([facility]); 32 weeks gestation of ([facility]) Social History Tobacco UseTypesPacks/DayYears UsedDateSmoking Tobacco: NeverPassive Smoke Exposure: NeverSmokeless Tobacco: NeverAlcohol UseStandard Drinks/WeekComments Never0 (1 standard drink = 0.6 oz pure alcohol)PHQ-2AnswerDate RecordedPatient Health Questionnaire-2 Ozvot813Estimated Date of Delivery JxgvakkcIgj38/19/2025Based on last menstrual period of 01/07/2025Sex and Gender InformationValueDate RecordedSex Assigned at BirthNot on fileLegal SexFemale 01/08/2023 6:51 PM EDTGender IdentityNot on fileSexual OrientationNot on file documented as of this encounter Last Filed Vital Signs Vital SignReadingTime TakenCommentsBlood Nbdxhwgv929/6010/ 3:28 PM EDT Pulse--Temperature--Respiratory Rate--Oxygen Saturation--Inhaled Oxygen Concentration--Yjphzt53.6 kg (168 lb 12.8 oz)08/25/2025 3:28 PM [...] Size of fetus inconsistent with dates, antepartum ([facility]) 08/10/2025 Resolved Ambulatory Problems Diagnosis Date [...] nursing note reviewed. Exam conducted with a agronomy manager present. Vitals: Estimated body mass index is 28.97 kg/m?? as calculated from the following: Height as of 04/05/25: 5' 4 . Weight as of this encounter: 168 lb 12.8 oz. BP: 118/60 Patient's last menstrual period was 01/07/2025. Assessment/Plan ICD-10-CM 1. Third trimester ([facility]) Z34.93 2. 32 weeks gestation of ([facility]) Z3A.32 POCT urinalysis dipstick manually resulted [...] Plan of Treatment DateTypeDepartmentCare Team (Latest Contact Info)Zdfnjospelt89/18/2025 9:20 AM ESTRoutine [facility] [address] [place] [phone] TulioAlex upton DO [address] [place] [address] NameTypePriorityAssociated DiagnosesOrder ScheduleCBC and differentialLabRoutine 32 weeks gestation of ([facility]) Ordered: 08/25/2025documented as of this encounter Procedures Procedure NamePriorityDate/TimeAssociated DiagnosisCommentsPOCT URINALYSIS UYFTBWIMOoregmm84/30/2025 3:40 PM EDT 32 weeks gestation of ([facility]) documented in this encounter Results * (ABNORMAL) [...] without hematuria, site unspecified- Primary Third trimester ([facility]) state, incidental 32 weeks gestation of ([facility]) documented in this encounter Care Teams Team MemberRelationshipSpecialtyStart DateEnd Date Eliana Flanagan MD [address] [place] [address] PCP - GeneralFamily Medicine03/04/23documented as of this encounter
--- OUTSIDE RECORDS SUMMARY | 2025-08-27 12:46 | XMS_ITS | Clinical Summary ---
Author Organization [facility] Healthcare Address [address] [place] [address] Care Team Providers Care Gathering Machine Setter Name Role Phone Eliana Flanagan MD Primary Care Provider [phone] Allergies Active AllergyReactionsCriticalityNoted LsdyAwsvjyknHqzmjngkizeUsirtkn50/12/2024 Medications MedicationSigDispense QuantityRefillsLast FilledStart DateEnd DateStatus MV-Min-Fe Fum-FA-DHA ( 1 PO) Take 1 tablet by mouth DailyActive diphenhydrAMINE (BENADryl) 50 MG tablet Take 50 mg by mouth as needed at bedtime for itchingActive omeprazole (PriLOSEC) [address] capsule Indications:Gastroesophageal Reflux Disease,HeartburnTake 1 capsule (20 mg) by mouth in the morning. Take before meals. Do not crush or chew. 30 capsule 5Active cephalexin (Keflex) 500 MG capsule Indications:Urinary tract infection without hematuria, site unspecifiedTake 1 capsule (500 mg) by mouth in the morning and 1 capsule (500 mg) in the evening and 1 capsule(500 mg) before bedtime. Do all this for 7 days. 21 capsule 5Active iron polysaccharides (ProFe) 391.3 (180 Fe) MG capsule Indications:Anemia, unspecified typeTake 1 capsule (391.3 mg) by mouth Daily 30 capsule Expired Active Problems ProblemNoted DateDiagnosed DateSize of fetus inconsistent with dates, antepartum ([facility])08/10/2025PCOS (polycystic ovarian syndrome)09/07/2024urrent severe episode of major depressive disorder without psychotic features without prior zrwgugt4512/30/2023Exercise-induced fffrtx2912/30/2023atellofemoral syndrome of right knee12/30/2023Estimated Date of AkclacqbSghoknhdYvw11/19/2025Based on last menstrual period of 01/07/2025 Encounters DateTypeDepartmentCare AmeiZibpwulmngn88/31/2025Telephone [facility] [address] [place] [address] Liliana Leahy MA 08/26/2025linisync Result Encounter [facility] External Department Unsolicited Darlene Olmstead NP 08/25/2025 3:20 PM EDTRoutine [facility] [address] [place] [address] Munira Yu PA Urinary tract infection without hematuria, site unspecified (Primary Dx); Third trimester ([facility]); 32 weeks gestation of ([facility])08/25/2025amboo flowsheet [facility] [address] [place] [address] Munira Yu PA 08/22/2025linisync Result Encounter [facility]OM[facility] External Department Unsolicited Alex Antunez, DO 08/22/2025Telephone [facility] [address] [facility] [place] [address] Anuja Green LPN 08/19/2025linisync Result Encounter NOM[facility] External Department Unsolicited Tulio, Alex, DO 08/11/2025 3:00 PM EDTRoutine [facility] [address] [place] [address] Munira Yu PA Third trimester ([facility]); 30 weeks gestation of ([facility])08/11/2025 2:30 PM EDTAncillary Procedure [facility] [address] [place] [address] Second trimester ([facility]); Cystitis; Size of fetus inconsistent with dates, antepartum ([facility])08/05/2025Patient Outreach [facility] [address] [place] [address] Munira Degroot LPN 08/04/2025bstract [facility] [address] [place] [address] Munira Degroot LPN 07/27/2025 1:50 PM EDTRoutine [facility] [address] [place] [address] Darlene Olmstead, MAROIN Anemia, unspecified type (Primary Dx); 28 weeks gestation of ([facility]); Third trimester ([facility]); Elevated glucose tolerance test07/27/2025amboo flowsheet [facility] [address] [place] [address] Darlene Olmstead NP 07/26/2025Telephone [facility] [address] [facility] [place] [address] Shani Hinds MA 07/25/2025linisync Result Encounter [facility] External Department Unsolicited Provider, Generic External Data 07/13/2025 3:20 PM EDTRoutine [facility] [address] [place] [address] Alex Antunez DO Cystitis (Primary Dx); 26 weeks gestation of ([facility]); Second trimester ([facility]); Gastroesophageal reflux in ([facility]); Size of fetus inconsistent with dates, antepartum ([facility])07/13/2025amboo flowsheet [facility] [address] [place] [address] Alex Antunez DO 06/15/2025 1:50 PM EDTRoutine [facility] [address] [place] [address] Alex Antunez, DO 22 weeks gestation of ([facility]); Second trimester ([facility]); Diabetes mellitus fjfyueqlq24/20/2025amboo flowsheet [facility] [address] [place] [address] Alex Antunez, DO 06/06/2025bstract [facility] [address] [place] [address] Alex Antunez, DO 06/02/2025bstract [facility] [address] [place] [address] Alex Antunez, DO 05/31/2025 8:30 AM EDTAncillary Procedure [facility] [address] [address] from Last 3 Months Family History RelationNameStatusCommentsFatherAliveMotherAlive Social History Tobacco UseTypesPacks/DayYears UsedDateSmoking Tobacco: NeverPassive Smoke Exposure: NeverSmokeless Tobacco: Never Tobacco Cessation:Counseling Given: Yes Alcohol UseStandard Drinks/WeekCommentsNever0 (1 standard drink = 0.6 oz pure alcohol)PHQ-2AnswerDate RecordedPatient Health Questionnaire-2 Dhnym614 Estimated Date of EclrxpohLtryyxeqOpp03/19/2025ased on last menstrual period of 01/07/2025Sex and Gender InformationValueDate RecordedSex Assigned at BirthNot on fileLegal GynHxldlw30/15/2023 6:51 PM EDTGender IdentityNot on file Sexual OrientationNot on file Last Filed Vital Signs Vital SignReadingTime TakenCommentsBlood Vlmnfmfx528/6010 3:28 PM EDT Nzmkt596504/05/2025 11:07 AM EDTTemperature--Respiratory Wyog645504/05/2025 11:07 AM EDTOxygen Almjcheobi73%04/05/2025 11:07 AM EDTInhaled Oxygen Concentration-- Klxtai95.6 kg (168 lb 12.8 oz)08/25/2025 3:28 PM ELJRmhbby955.6 cm (5' 4 ) 04/05/2025 11:07 AM EDTBody Mass Index28.9704/05/2025 11:07 AM EDT Plan of Treatment DateTypeDepartmentCare Team (Latest Contact Info)Scddnqqelgn54/18/2025 9:20 AM ESTRoutine [facility] [address] [place] [address] Alex Antunez, [address] [place] [address] Health MaintenanceDue DateLast DoneCommentsMMR Vaccines (1 of [...] Years) (1 of 2 - PCV)3COVID-19 Vaccine ( season)2025Influenza Vaccine (#1)2025HIB VaccinesAged Out No longer [...] to complete this topic Procedures Procedure NamePriorityDate/TimeAssociated DiagnosisCommentsALL CBC WITH AUTO AFHCFruigzt92/ 10:57 AM EDT POCT URINALYSIS KNJBHBMHYehmnpz17/30/2025 3:40 PM EDT 32 weeks gestation of ([facility]) GLUCOSE TOLERANCE 3 ASHYYbghvkg19/27/2025 8:44 AM EDT URINE CULTURE, BZKTMMLGofyjks10/24/2025 12:18 PM EDT [facility] URINE MICROSCOPIC XSXLAprpvas49/24/2025 12:18 PM EDT [facility] UA (CLEAN/CATCH) BARIATRIC PROGRAM COORDINATOR/MICRO IF IND.Bfcbkxq5908/19/2025 12:18 PM EDT US OB FOLLOW UP TRANSABDOMINAL CVDYJOVYRvcobnn83/17/2025 12:55 PM EDT Second trimester ([facility]) Cystitis Size of fetus inconsistent with dates, antepartum ([facility]) POCT URINALYSIS MLPOXUWPYmxszkm11/16/2025 3:21 PM EDT Third trimester ([facility]) POCT URINALYSIS JXNPJYSKPjazruk40/01/2025 2:06 PM EDT 28 weeks gestation of ([facility]) GLUCOSE 1 NNHDSiepdvl25/29/2025 1:17 PM EDT ALL CBC WITH AUTO IGEFEzobogi00/29/2025 1:17 PM EDT URINARY TRACT INFECTION (HTRX)Davwrxl5107/13/2025 4:23 PM EDT POCT URINALYSIS CENOTTKDGmuixyk60/17/2025 3:34 PM EDT 26 weeks gestation of ([facility]) Second trimester ([facility]) POCT URINALYSIS BXVTCLSJRwgvmse10/20/2025 1:59 PM EDT 22 weeks gestation of ([facility]) Second trimester ([facility]) US OB 14+ WEEKS ANATOMY UTZGThbepgb81/05/2025 9:06 AM EDT Screening, , for anatomic survey ([facility]) from Last 3 Months Results * (ABNORMAL) ALL CBC WITH AUTO DIFF (08/26/2025 10:57 AM EDT) Only the most recent of2 resultswithin the time period is included. ComponentValueRef RangeTest MethodAnalysis TimePerformed AtPathologist Signature TBH WBC7.54.0 - 11.0 10 3/uLTBHTBH RBC3.60(L)4.20 - 5.40 10 6/uLTBHTBH HGB9.4(L) 12.0 - 16.0 g/dLTBHTBH HCT28.5(L)36.0 - 48.0 %TBHTBH MCV79.2(L)81.0 - 99.0 fLTBH TBH MCH26.1(L)26.7 - 34.0 pgTBHTBH MCHC33.029.9 - 35.2 g/dLTBHTBH RDW13.611.0 - 15.0 %TBHTBH GPV524755 - 450 10 3/uLTBHTBH MPV11.19.5 - 13.5 fLTBHNEUTROPHILS PERCENT AUTO77.4(H)43.0 - 75.0 %TBHLYMPHOCYTES PERCENT AUTO13.7(L)20.5 - 60.0 % TBHMONOCYTES PERCENT AUTO7.31.7 - 12.0 %TBHTBH EO %0.90.9 - 7.0 %TBHBASOPHILS PERCENT AUTO0.30.2 - 2.0 %TBHIMMATURE GRANULOCYTES PCT AUTO0.40.0 - 0.5 %TBH NEUTROPHILS ABSOLUTE AUTO5.81.4 - 6.5 10 3/uLTBHLYMPHOCYTES ABSOLUTE AUTO1.0(L) 1.2 - 3.8 10 3/uLTBHMONOCYTES ABSOLUTE AUTO0.60.3 - 0.8 10 3/uLTBHTBH EO #0.10.0 - 0.7 10 3/uLTBHBASOPHILS ABSOLUTE AUTO0.00.0 - 0.1 10 3/uLTBHIMMATURE GRANULOCYTES ABS AUTO0.030.00 - 0.03 10 3/uLTBHSpecimen (Source)Anatomical Location / LateralityCollection Method / VolumeCollection TimeReceived Time 08/26/2025 10:57 AM EDT1 10:59 AM EDT Narrative CLINISYNC - 08/26/2025 11:05 AM EDT Authorizing ProviderResult TypeResult StatusDarlene Olmstead NPCLINISYNCFinal ResultPerforming OrganizationAddressCity/State/ZIP CodePhone Number CLINISYKIM [facility] * (ABNORMAL) POCT urinalysis dipstick manually resulted [...] Location / LateralityCollection Method / VolumeCollection TimeReceived LnonGjfap84/30/2025 3:40 PM EDT Narrative Authorizing ProviderResult TypeResult Arturo Olmstead NPPOINT OF CARE TEST ENTER/EDIT ORDERABLESFinal Result * [...] BLOOD ORDERABLES Final ResultPerforming OrganizationAddressCity/State/ZIP CodePhone Number CLINSARA TB * (ABNORMAL) URINE CULTURE, ROUTINE (08/19/2025 12:18 PM EDT)ComponentValueRef RangeTest MethodAnalysis TimePerformed AtPathologist SignatureURINE CULTURE, ROUTINE ??Urine Culture, Routine TBHURINE CULTURE, ROUTINEGrowth observed. Further testing to rule out possible pathogen(s)TBHURINE CULTURE, ROUTINEis in progress.TBHURINE CULTURE, ROUTINE Organism: Coag negative Staph species :TBHURINE CULTURE, ROUTINE*ABNORMAL*TB URINE CULTURE, ROUTINEnot Staphylococcus saprophyticusTBHURINE CULTURE, ROUTINE [...] ROUTINE ??O:CNSNSS Isolated TBHURINE CULTURE, ROUTINEPerformed at: [facility] LabcoInsp[facility] Center Mullica HillTBHURINE CULTURE, [id number] [place], [place] [id number] CULTURE, ROUTINELab Director: Nate Don PhD, Phone: [phone] CULTURE, ROUTINE Organism: ??1.1 Antibiotic ? Interpretation [...] CLINISYNC [facility] * (ABNORMAL) [facility] UA (CLEAN/CATCH) BARIATRIC PROGRAM COORDINATOR/MICRO IF IND. (08/19/2025 12:18 PM EDT) ComponentValueRef [...] Performing OrganizationAddressCity/State/ZIP CodePhone Number [facility] * US OB follow up transabdominal approach [...] Adolfo Camp MD Authorizing ProviderResult TypeResult StatusDarlene Ishan NPIMG OB US PROCEDURESFinal Result * (ABNORMAL) GLUCOSE 1 HOUR (07/25/2025 1:17 PM EDT)ComponentValueRef RangeTest MethodAnalysis TimePerformed AtPathologist SignatureGLUCOSE 1 WHDK771(H)<130 mg/dLTBHSpecimen (Source)Anatomical Location / LateralityCollection Method / VolumeCollection TimeReceived Time07/25/2025 1:17 PM EDT07/25/2025 1:19 PM EDT Narrative SYDNEY - 07/25/2025 1:47 PM EDT Authorizing ProviderResult TypeResult StatusCorey Tulio SABILLON BLOOD ORDERABLES Final ResultPerforming OrganizationAddressCity/State/ZIP CodePhone Number [facility] * URINARY TRACT INFECTION (HTRX) (07/13/2025 4:23 PM EDT)ComponentValueRef Range Test MethodAnalysis TimePerformed AtPathologist SignatureACINETOBACTER ZFEUKRVW419.961 - 24.689 ppm07/15/2025 7:29 AM EDTHealthTrackRx at LabPort ACINETOBACTER BAUMANIINot Bmpewhnx75.961 - 24.689 ppm07/15/2025 7:29 AM EDT [facility] LabPortCITROBACTER FTUJAVMV515.000 - 32.015 ppm07/15/2025 7:29 AM EDTHealthTrackRx at LabPortCITROBACTER FREUNDIINot Jodauown01.000 - 32.015 ppm07/15/2025 7:29 AM EDTHealthTrackRx at LabPortENTEROBACTER AEROGENES, YMKIPQJ387.000 - 32.290 ppm07/15/2025 7:29 AM EDTHealthTrackRx at LabPortENTEROBACTER AEROGENES, CLOACAENot Uqvsgkrb78.000 - 32.290 ppm 07/15/2025 7:29 AM EDTHealthTrackRx at LabPortENTEROCOCCUS FAECALIS, FAECIUM0 26.000 - 33.043 ppm07/15/2025 7:29 AM EDTHealthTrackRx at LabPortENTEROCOCCUS FAECALIS, FAECIUMNot Gorerqeg42.000 - 33.043 ppm07/15/2025 7:29 AM EDT [facility] at LabPortESCHERICHIA MERF882.000 - 28.500 ppm07/15/2025 7:29 AM EDTHealthTrackRx at LabPortESCHERICHIA COLINot Qfaitlex74.000 - 28.500 ppm 07/15/2025 7:29 AM EDTHealthTrackRx at LabPortKLEBSIELLA PNEUMONIAE, OXYTOCA0 23.000 - 31.865 ppm07/15/2025 7:29 AM EDTHealthTrackRx at LabPortKLEBSIELLA PNEUMONIAE, OXYTOCANot Jejkbbqh65.000 - 31.865 ppm07/15/2025 7:29 AM EDT [facility] at LabPortMORGANELLA EJVJMCUN691.961 - 24.689 ppm07/15/2025 7:29 AM EDTHealthTrackRx at LabPortMORGANELLA MORGANIINot Hpqyoast32.961 - 24.689 ppm07/15/2025 7:29 AM EDTHealthTrackRx at LabPortPROTEUS MIRABILIS, VULGARIS0 23.000 - 28.500 ppm09 7:29 AM EDTHealthTrackRx at LabPortPROTEUS MIRABILIS, VULGARISNot Onqicinj20.000 - 28.500 ppm07/15/2025 7:29 AM EDT [facility] at LabPortPSEUDOMONAS OLVFWIPZOI744.000 - 31.801 ppm07/15/2025 7:29 AM EDTHealthTrackRx at LabPortPSEUDOMONAS AERUGINOSANot Ppwfjyky72.000 - 31.801 ppm07/15/2025 7:29 AM EDTHealthTrackRx at LabPortSTAPHYLOCOCCUS AUREUS0 26.000 - 31.595 ppm07/15/2025 7:29 AM EDTHealthTrackRx at [facility] STAPHYLOCOCCUS AUREUSNot Oeuxktuw23.000 - 31.595 ppm07/15/2025 7:29 AM EDT [facility] at LabPortSTREPTOCOCCUS AGALACTIAE (GROUP B STREP)026.000 - 32.435 ppm07/15/2025 7:29 AM EDTHealthTrackRx at LabPortSTREPTOCOCCUS AGALACTIAE (GROUP B STREP)Not Ywbgcipg27.000 - 32.435 ppm09 7:29 AM EDTHealthTrackRx at LabPortCANDIDA ALBICANS, PARAPSILOSIS, CZCIKALHJM007.000 - 30.347 ppm09 7:29 AM EDTHealthTrackRx at LabPortCANDIDA ALBICANS, PARAPSILOSIS, TROPICALISNot Vggdqgqr20.000 - 30.347 ppm07/15/2025 7:29 AM EDT [facility] LabPortCANDIDA UASYWWXY576.000 - 31.618 ppm095 7:29 AM EDTHealthTrackRx at LabPortCANDIDA GLABRATANot Haucjyfy27.000 - 31.618 ppm 07/15/2025 7:29 AM EDTHealthTrackRx at LabPortCANDIDA PIBXCD431.000 - 30.873 ppm07/15/2025 7:29 AM EDTHealthTrackRx at LabPortCANDIDA KRUSEINot Detected 23.000 - 30.873 ppm07/15/2025 7:29 AM EDTHealthTrackRx at LabPortSERRATIA NTDDQZYGNO154.000 - 31.581 ppm07/15/2025 7:29 AM EDTHealthTrackRx at [facility] SERRATIA MARCESCENSNot Osdhidbe78.000 - 31.581 ppm07/15/2025 7:29 AM EDT [facility] LabWashington [facility] HospitalSTREPTOCOCCUS PYOGENES (GROUP A STREP)019.961 - 24.689 ppm07/15/2025 7:29 AM EDTHealthTrackRx at LabPortSTREPTOCOCCUS PYOGENES (GROUP A STREP)Not Ihonwgmb04.961 - 24.689 ppm07/15/2025 7:29 AM EDTHealthTrackRx at [facility] IssaquahSTAPHYLOCOCCUS EPIDERMIDIS, HAEMOLYTICUS, LUGDUNENSIS, SAPROPHYTICUS (KRZLT652.961 - 24.689 ppm07/15/2025 7:29 AM EDTHealthTrackRx at [facility] STAPHYLOCOCCUS EPIDERMIDIS, HAEMOLYTICUS, LUGDUNENSIS, SAPROPHYTICUS (URINANot Eyvapvhj92.961 - 24.689 ppm07/15/2025 7:29 AM EDTHealthTrack[facility] at [facility] STAPHYLOCOCCUS EPIDERMIDIS, HAEMOLYTICUS, LUGDUNENSIS, SAPROPHYTICUS (URINA0 19.961 - 24.689 ppm07/15/2025 7:29 AM EDTHealthTrack[facility] at [facility] STAPHYLOCOCCUS EPIDERMIDIS, HAEMOLYTICUS, LUGDUNENSIS, SAPROPHYTICUS (URINANot Alagymdj53.961 - 24.689 ppm07/15/2025 7:29 AM EDTHealthTrackRx at LabPort Specimen (Source)Anatomical Location / LateralityCollection Method / Volume Collection TimeReceived FncoTzpiw69/17/2025 4:23 PM EDT07/15/2025 1:30 AM EDT Narrative Authorizing ProviderResult TypeResult StatusDarrelbonny Contreraserly NPLAB BLOOD ORDERABLESFinal ResultPerforming OrganizationAddressCity/State/ZIP CodePhone Number [facility] [address] [address] * OB 14+ weeks anatomy scan (05/31/2025 [...] Adolfo Camp MD Authorizing ProviderResult TypeResult StatusAmy [facility] PROCEDURES Final Result from Last 3 Months Insurance Care Teams Team MemberRelationshipSpecialtyStart DateEnd Date Eliana Flanagan MD [address] [address] [facility]03/04/23
--- OUTSIDE RECORDS SUMMARY | 2025-08-27 12:46 | XMS_ITS | CCD ---
Author Organization [facility] Care Team Providers Care Malt House Kiln Operator Name Role Phone BENITEZ, DR MUNOZ Primary Care Unavailable KIRBY ATKINSON Attending Unavailable DEMETRIO, KIRBY Admitting Unavailable AHDOOT, JONI Consulting Unavailable Michelle, Nidhi Consulting Unavailable KIRBY ATKINSON Consulting Unavailable KRYSTA, DR BURDICK Consulting Unavailable KARGRETCHEN, DR BURDICK Attending Unavailable BENITEZ, DR MUNOZ Primary Care Unavailable KARIMANIK, DR BURDICK Admitting Unavailable WEST, DR KIAN Pablo Consulting Unavailable KARASIK, DR BURDICK Consulting Unavailable KARASIK, DR BURDICK Attending Unavailable BENITEZ, DR MUNOZ Primary Care Unavailable KARIMANIK, DR BURDICK Admitting Unavailable ZIEBER, DR MELVIN Olmedo Consulting Unavailable Tammy Marquis MD Primary Care Provider Cecilio MANAGER STATISTICAL PROGRAMMING, Nicole Neri Unavailable [phone] Cecilio MANAGER STATISTICAL PROGRAMMING, Nicole Neri Unavailable NICOLE HERNANDES Attending Unavailable ALEX ANTUNEZ Attending Unavailable MUNIRA GARCIA Attending Unavailable MUNIRA GARCIA Referring Unavailable ALEX ANTUNEZ Attending Unavailable ALEX ANTUNEZ Attending Unavailable ALEX ANTUNEZ Attending Unavailable LEONORA OLMSTEAD Attending Unavailable LEONORA OLMSTEAD Referring Unavailable MUNIRA GARCIA Attending Unavailable MUNIRA GARCIA Attending Unavailable Allergies Allergy ClassificationReported Allergen(s)Allergy TypeDate of OnsetReaction(s) Facility (1 source)PenicillinsDrug allergy (disorder)92-14-1951Fhi [facility] Repository (20 sources)PenicillinsDrug Zoqdwne10-92-6752HuypqzlQZWA Healthcare Medications Current Medications MedicationDrug Class(es)DatesSig (Normalized)Sig (Original)[id number] 200 actuat albuterol 0.09 mg/actuat metered dose inhaler (9 sources)beta2-Adrenergic Agonist End: 41-54-3044dmtp 2 puff(s) by inhalation every four hours for wheezing albuterol HFA (ProAir HFA) 90 mcg/act inhaler Inhale 2 puffs every 4 (four) hours if needed for wheezing or shortness of breath 04/05/2025 Discontinued (Other)cephalexin 500 mg oral capsule (3 sources)Cephalosporin AntibacterialStart: 08-25-2025 End: 99-48-9219oxol 1 capsule by mouth in the morning, [...] 09/01/2025 ActivediphenhydrAMINE hydrochloride 50 mg oral tablet (17 sources)Histamine-1 Receptor AntagonistdiphenhydrAMINE (BENADryl) 50 MG tablet Take 50 mg by mouth as needed at bedtime for itching Activefexofenadine hydrochloride 180 mg oral tablet (9 sources)Histamine-1 Receptor Antagonist End: 99-90-9304ijut 1 tablet by mouth once dailyfexofenadine ([facility] Allergy Relief) 180 MG tablet Take 180 mg by mouth Daily 04/05/2025 Discontinued (Other) magnesium oxide 400 mg oral tablet (5 sources)Start: 03-10-2025 End: 43-32-6082jfmh 1 tablet by mouth once dailymagnesium oxide (Mag-Ox) 400 MG tablet Indications: headache in first trimester Take 1 tablet (400 mg) by mouth Daily 30 tablet 11 03/10/2025 04/05/2025 Discontinued (Other) nitrofurantoin, macrocrystals 25 mg / nitrofurantoin, monohydrate 75 mg oral capsule (5 sources)Nitrofuran AntibacterialStart: 07-13-2025 End: 91-80-5833rccd 1 capsule by mouth in the morningnitrofurantoin, macrocrystal-monohydrate, (Macrobid) 100 MG capsule Indications: Cystitis Take 1 capsule (100 mg) by mouth in the morning and 1 capsule (100 mg) before bedtime. Do all this for 7 days. 14 capsule 07/13/2025 07/20/2025 ActiveStart: 04-06-2025 End: 00-79-1251jlda 1 capsule by mouth in the morningnitrofurantoin, macrocrystal-monohydrate, (Macrobid) 100 MG capsule Indications: Urinary tract infection without hematuria, site unspecified Take 1 capsule (100 mg) by mouth in the morning and 1 capsule (100 mg) before bedtime. Do all this for 7 days. 14 capsule 04/06/2025 04/13/2025 ActiveStart: 03-10-2025 End: 36-31-3791xflr 1 capsule by mouth in the morningnitrofurantoin, macrocrystal-monohydrate, (Macrobid) 100 MG capsule Indications: UTI symptoms Take 1 capsule (100 mg) by mouth in the morning and 1 capsule (100 mg) before bedtime. Do all this for 7 days. 14 capsule 03/10/2025 03/17/2025 Active omeprazole 20 mg delayed release oral capsule (14 sources)Proton Pump InhibitorStart: 07-13-2025 End: 49-37-2003pdqf 1 capsule by mouth before mealtimeomeprazole (PriLOSEC) [address] capsule Indications: Gastroesophageal Reflux Disease , Heartburn Take 1 capsule (20 mg) by mouth in the morning. Take before meals. Do not crush or chew. 30 capsule 3 07/13/2025 Activeondansetron 4 mg disintegrating oral tablet (8 sources)Serotonin-3 Receptor AntagonistStart: 03-10-2025 End: 35-62-0701faog 1 tablet by mouth every six hours for nauseaondansetron ODT (Zofran-ODT) 4 MG disintegrating tablet Indications: Nausea and vomiting in Take 1 tablet (4 mg) by mouth every 6 (six) hours if needed for nausea or vomiting 30 tablet 2 03/10/2025 04/09/2025 Activepolysaccharide iron complex 391 mg oral capsule (12 sources)Start: 07-27-2025 End: 59-39-2580yfis 1 capsule by mouth once dailyiron polysaccharides (ProFe) 391.3 (180 Fe) MG capsule Indications: Anemia, unspecified type Take 1capsule (391.3 mg) by mouth Daily 30 capsule 6 07/27/2025 08/26/2025 ActiveStart: 04-06-2025 End: 37-17-7393reqf 1 capsule by mouth once dailyiron polysaccharides (ProFe) 391.3 (180 Fe) MG capsule Indications: Other iron deficiency anemia Take 1 capsule (391.3 mg) by mouth Daily 30 capsule 6 04/06/2025 05/06/2025 Active MV-Min-Fe Fum-FA-DHA ( 1 PO) (17 sources) MV-Min-Fe Fum-FA-DHA ( 1 PO) Take 1 tablet by mouth Daily Active Completed/Discontinued Medications MedicationDrug Class(es)DatesSig (Normalized)Sig (Original)FLUoxetine 10 mg oral capsule (5 sources)Serotonin Reuptake InhibitorStart: 11-18-2022 End: 71-04-1126scvl 1 capsule by mouth once dailyFLUoxetine (PROzac) 10 MG capsule Take 1 capsule by mouth 1 (one) time each day at the same time 03/10/2025 Discontinued (Other)fluticasone propionate 0.05 mg/actuat metered dose nasal spray (5 sources)Corticosteroid End: 94-83-1527tkkz 1 spray(s) nasal route once dailyfluticasone (Flonase) 50 MCG/ACT nasal spray Administer 1 spray into each nostril 1 (one) time eachday at the same time 03/10/2025 Discontinued (Other)24 hr metFORMIN hydrochloride 500 mg extended release oral tablet (5 sources)BiguanideStart: 06-07-2024 End: 32-14-4443avzy 1 tablet by mouth every twenty-four hours at mealtime metFORMIN XR (Glucophage-XR) 500 MG 24 hr tablet Indications: PCOS (polycystic ovarian syndrome) Take 1 tablet (500 mg) by mouth in the evening. Take with meals Do not crush, chew, or split. 30 tablet 11 06/07/2024 03/10/2025 Discontinued (Other) Problems Problem ClassificationProblemDateDocumented DateEpisodic/ChronicAbdominal pain (10 sources)Pelvic and perineal pain; Translations: [Unspecified abdominal pain] Onset: 11-81-9292NasexpgiZlpfjw (20 sources)Exercise-induced asthma; Translations: [Exercise induced bronchospasm]Onset: 870698-59-1768MwngjyrCllxtkozit and other anemia (2 sources)Iron deficiency anemia; Translations: [Other iron deficiency anemias] 49-21-5542JjjgvwmkEkefmbtrun and other anemia (2 sources)Anemia; Translations: [Anemia, unspecified]36-18-0321TedforisAgirvhew mellitus without complication (2 sources)Abnormal glucose tolerance test; Translations: [Other abnormal glucose]25-22-3144RwdjdyzyTaipiesgh of teeth and jaw (2 sources)Jaw pain; Translations: [Jaw pain]74-06-6372HrzwbscoHpotkakegtyom congenital anomalies (1 source)Bicornate uterus; 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]Onset: 10-18-2021 ChronicGenitourinary symptoms and ill-defined conditions (1 source)Urinary symptoms ; Translations: [Unspecified symptoms and signs involving the genitourinary system]09-25-5876ZtzcicijXeinwxjdjiila and screening for infectious disease (2 sources)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; Translations: [Contact with and (suspected) exposure to infections with a predominantly sexual mode of transmission]41-73-4781HmedcgbfSztsi disorders and dislocations; trauma-related (20 sources)Patellofemoral syndrome of right knee; Translations: [Patellofemoral disorders, right knee]Onset: 002299-51-6151EgxglxgAtjlcjuxe disorders (1 source)Missed period; Translations: [Irregular menstruation, unspecified] 91-12-5309NyklyovBkmp disorders (20 sources)Severe major depression, single episode, without psychotic features; Translations: [Major depressive disorder, single episode, severe without psychotic features]Onset: 797822-91-9161DhrhqzrJyqlz complications of (1 source)Vomiting of , unspecified; Translations: [Unspecified vomiting of , unspecified as to episode of care or not applicable] 73-37-9023SosjjpufLjtdw complications of (1 source)Headache; Translations: [Other specified related conditions, first trimester]83-77-1187PxirenusGvswi complications of (2 sources)Gastroesophageal reflux disease in ; Translations: [Diseases of the digestive system complicating , unspecified trimester] 67-61-3058HvcebrtaNyuyr complications of (9 sources) size does not accord with dates; Translations: [Uterine size- date discrepancy, unspecified trimester]Onset: 509443-57-0442KrvhmqweYwcjz ear and sense organ disorders (2 sources)Bilateral earache; Translations: [Otalgia, bilateral]04-05-2025 EpisodicOther endocrine disorders (20 sources)Polycystic ovary syndrome; Translations: [Polycystic ovarian syndrome]Onset: 792176-14-7406MkihfnzIynts endocrine disorders (2 sources)Disorder of endocrine system; Translations: [Endocrine disorder, unspecified]60-48-3423EajylostWewbu female genital disorders (2 sources)Pain in female genitalia on intercourse; Translations: [Unspecified dyspareunia]19-40-7309AgdmcjzAljrc female genital disorders (2 sources)Vaginal discharge; Translations: [Other specified noninflammatory disorders of vagina]72-56-1491QfexatexImlzs and delivery including normal (16 sources); Translations: [Encounter for supervision of normal , unspecified, unspecified trimester]27-09-3556AondjvpmUhqao screening for suspected conditions (not mental disorders or infectious disease) (4 sources)Patient encounter status; Translations: [Encounter for other specified screening]42-59-1009GlewmzpzLflgwff cyst (5 sources)Unspecified ovarian cyst, left side; Translations: [UNSPECIFIED OVARIAN CYST LEFT SIDE]Onset: 59-48-7176OmxzktdzTsmiqwqo codes; unclassified (2 sources)Gestation period, 12 weeks; Translations: [12 weeks gestation of ]10-33-8365OsbiegvzHxyakgxa codes; unclassified (2 sources)Gestation period, 18 weeks; Translations: [18 weeks gestation of ]87-32-6595ImholosnNubinuga codes; unclassified (2 sources)Gestation period, 22 weeks; Translations: [22 weeks gestation of ]98-18-1101XznyxircXhfskqew codes; unclassified (2 sources)Gestation period, 26 weeks; Translations: [26 weeks gestation of ]04-13-0256HvwwpdmsFoqfvxcx codes; unclassified (2 sources)Gestation period, 28 weeks; Translations: [28 weeks gestation of ]57-86-9618QuljzptiZwskyxhn codes; unclassified (2 sources)Gestation period, 30 weeks; Translations: [30 weeks gestation of ]58-08-5785BkulwnecKksswiaw codes; unclassified (2 sources)Gestation period, 32 weeks; Translations: [32 weeks gestation of ]50-10-9730RabmptgyJnhfsrm tract infections (6 sources)Urinary tract infectious disease; Translations: [Urinary tract infection, site not specified]84-58-6207Yhfxtxhb Results Test NameValueInterpretationReference RangeFacilityALL CBC WITH AUTO DIFFon 15-45-9625AASONILLW ABSOLUTE AUTO0.0NOMS HealthcareBasophils/100 WBC (Bld)0.3 % 0.2 - 2.0 %[facility] HealthcareEosinophils/100 WBC (Bld)0.9 %0.9 - 7.0 %[facility] Medical CenterErythrocyte distribution width (RBC) [Ratio]13.6 %11.0 - 15.0 %[facility] HealthcareHematocrit (Bld) [Volume fraction]28.5 %Low36.0 - 48.0 %[facility] Medical CenterHemoglobin (Bld) [Mass/Vol]9.4 g/dLLow12.0 - 16.0 g/dLJohn J. Pershing [facility] Center IMMATURE GRANULOCYTES ABS AUTO0.03NOMS [facility] HospitalImmature granulocytes/100 WBC (Bld)0.4 %0.0 - 0.5 %[facility] Medical CenterInterpretation and review of laboratory resultsAbnormalNOFL HealthcareLYMPHOCYTES ABSOLUTE AUTO1.0LowNOMS [facility] Lymphocytes/100 WBC (Bld)13.7 %Low20.5 - 60.0 %[facility] Medical CenterMCH (RBC) [Entitic mass]26.1 pgLow26.7 - 34.0 pgNOSaint Joseph Health CenterMCHC (RBC) [Mass/Vol]33.0 g/dL29.9 - 35.2 g/dLJohn J. Pershing VA Medical CenterMCV (RBC) [Entitic vol]79.2 fLLow81.0 - 99.0 fLNOSaint Joseph Health CenterMONOCYTES ABSOLUTE AUTO0.6NOMS HealthcareMonocytes/100 WBC (Bld)7.3 % 1.7 - 12.0 %[facility] HealthcareNEUTROPHILS ABSOLUTE AUTO5.8[facility] Neutrophils/100 WBC (Bld)77.4 %High43.0 - 75.0 %[facility] HealthcarePlatelet mean volume (Bld) [Entitic vol]11.1 fL9.5 - 13.5 fLNOMS HealthcareTBH EO #0.1NOMS HealthcareTBH [id number] HealthcareTBH RBC3.60LowNOMS HealthcareTBH WBC7.5NOMS HealthcareCLINISYNCNSAINT FRANCIS [facility] HealthcareUrinalysis macro (dipstick) panel (U)on 00-59-6721Kiqcpjmes, UANegativeNegative - 4(70) +++ mg/dLNOMS HealthcareBlood, UANegativeNegative - 50 Tarun/mcLNOMS HealthcareClarity, UAClearNOMS Healthcare Color, UAYellowNOMS HealthcareGlucose, UANegativeNegative - 2000(110) ++++ mg/dL [facility] HealthcareInterpretation and review of laboratory resultsAbnormalNOMS HealthcareKetones, UANegativeNegative - 160(16) ++++ mg/dLNOFL Healthcare Leukocytes, UA1+Negative - 500+++ Joelle/mcLNOMS HealthcareNitrite, UANegative Negative - PositiveNOMS HealthcarepH, UA6.05 - 9NOMS HealthcareProtein, UATrace Negative - 2000(20) ++++ mg/dLNOFL HealthcareSpec Grav, UA1.0101 - 1.03NOMS HealthcareUrobilinogen, UA2.00.2 - 12 mg/dLNOFL HealthcareNOFL HealthcareGLUCOSE TOLERANCE 3 HOURon 90-23-2983FWSGGQK TOLERANCE 3 HOURmg/dLNOFL HealthcareComment on above:GLU FAST 75 (<95) Col: 08/22/25 0844 GLU 1HR () Col: 08/22/25 0928 GLU 2HR () Col: 08/22/25 1028 GLU 3HR () Col: 08/22/25 1128 CLINISYNCNOFL HealthcareTB UA (CLEAN/CATCH) ORGAN INSTALLER/MICRO IF IND.on 08-19-2025 BILIRUBIN URINENegativeNEGATIVENOMS HealthcareBLOOD URINENegativeNEGATIVENOMS HealthcareClarity (U)CLEARCLEARNOMS HealthcareColor (U)LT. YELLOWYELLOWNOFL HealthcareGLUCOSE URINE UANegativeNEGATIVE mg/dLNOFL HealthcareInterpretation and review of laboratory resultsAbnormalNOMS HealthcareKetones Ql (U)Negative NEGATIVE mg/dLNOMS HealthcareLeukocyte esterase Test strip Ql (U)SMALLAbnormal NEGATIVENOFL HealthcareNITRITE URINENegativeNEGATIVENOMS HealthcarepH (U)7.0 [pH]5.0 - 9.0NOMS HealthcarePROTEIN URINENegativeNEG/TRACE mg/dLNOFL Healthcare SPECIFIC GRAVITY URINE1.0101.005 - 1.025NOFL HealthcareURINE MICROSCOPIC INDICATEDYESNOFL HealthcareUROBILINOGEN URINE0.2 EU/dL0.2 - 1.0 EU/dLNOFL HealthcareCLINISYNCNOMS HealthcareUS OB FOLLOW UP TRANSABDOMINAL APPROACHon 82-08-2544DU OB FOLLOW UP TRANSABDOMINAL APPROACHFINDINGS: Comparison May [...] Delivery: 10/14/25 Gestational Age as of 07/13/2025: 59g5mEawyddkukh macro (dipstick) panel (U)on 95-05-1894Bspuevvqv, UANegativeNegative - 4(70) +++ mg/dLNOMS HealthcareBlood, UANegativeNegative - 50 Tarun/mcLNOMS HealthcareClarity, UAClearNOMS Healthcare Color, UAYellowNOMS HealthcareGlucose, UANegativeNegative - 1999(110) ++++ mg/dL N[facility] HealthcareInterpretation and review of laboratory resultsAbnormalNOMS HealthcareKetones, UANegativeNegative - 160(16) ++++ mg/dLNOMS Healthcare Leukocytes, UANegativeNegative - 500+++ Joelle/mcLNOMS HealthcareNitrite, UA NegativeNegative - PositiveNOMS HealthcarepH, UA6.05 - 9NOMS HealthcareProtein, UANegativeNegative - 1999(20) ++++ mg/dLNOMS HealthcareSpec Grav, UA1.0151 - 1.03NOMS HealthcareUrobilinogen, UA0.20.2 - 12 mg/dLNOMS HealthcareNOMS HealthcareUrinalysis macro (dipstick) panel (U)on 28-69-2705Coadmqxqk, UA NegativeNegative - 4(70) +++ mg/dLNOMS HealthcareBlood, UANegativeNegative - 50 Tarun/mcLNOMS HealthcareClarity, UAClearNOMS HealthcareColor, UAYellowNOMS HealthcareGlucose, UANegativeNegative - 1999(110) ++++ mg/dLNOMS Healthcare Interpretation and review of laboratory resultsNormalNOMS HealthcareKetones, UA NegativeNegative - 160(16) ++++ mg/dLNOMS HealthcareLeukocytes, UANegative Negative - 500+++ Joelle/mcLNOMS HealthcareNitrite, UANegativeNegative - Positive NOMS HealthcarepH, UA75 - 9NOMS HealthcareProtein, UANegativeNegative - 2000(20) ++++ mg/dLNOMS HealthcareSpec Grav, UA1.0051 - 1.03NOMS HealthcareUrobilinogen, UA2.00.2 - 12 mg/dLNOMS HealthcareNOMS HealthcareALL CBC WITH AUTO DIFFon 76-11-2855YEMRUXKZX ABSOLUTE CURL2YIQC HealthcareBasophils/100 WBC (Bld)0.3 %0.2 - 2.0 %[facility] Medical CenterEosinophils/100 WBC (Bld)1.3 %0.9 - 7.0 %[facility] Erythrocyte distribution width (RBC) [Ratio]14.3 %11.0 - 15.0 %[facility] Hematocrit (Bld) [Volume fraction]32 %Low36.0 - 48.0 %[facility] Medical CenterHemoglobin (Bld) [Mass/Vol]10.4 g/dLLow12.0 - 16.0 g/dLJohn J. Pershing VA Medical CenterIMMATURE GRANULOCYTES ABS AUTO0.03NOSaint Joseph Health CenterImmature granulocytes/100 WBC (Bld)0.4 %0.0 - 0.5 % [facility] Medical CenterInterpretation and review of laboratory resultsAbnormalJohn J. Pershing VA Medical CenterLYMPHOCYTES ABSOLUTE HWUI7PqyLBFN [facility] HospitalLymphocytes/100 WBC (Bld) 14 %Low20.5 - 60.0 %[facility]ox NorthH (RBC) [Entitic mass]26.2 pgLow26.7 - 34.0 pgJohn J. Pershing VA Medical CenterMCHC (RBC) [Mass/Vol]32.5 g/dL29.9 - 35.2 g/dLJohn J. Pershing [facility] Center MCV (RBC) [Entitic vol]80.6 fLLow81.0 - 99.0 fLJohn J. Pershing VA Medical CenterMONOCYTES ABSOLUTE AUTO0.3NOMS [facility] HospitalMonocytes/100 WBC (Bld)4 %1.7 - 12.0 %[facility] NEUTROPHILS ABSOLUTE AUTO5.7NOSaint Joseph Health CenterNeutrophils/100 WBC (Bld)80 %High43.0 - 75.0 %[facility] Medical CenterPlatelet mean volume (Bld) [Entitic vol]10.9 fL9.5 - 13.5 fLJohn J. Pershing VA Medical CenterTB EO #0.1NOMS [facility] HospitalTB [id number] [facility] RBC3.97 LowNOGeneral [facility] WBC7.1NOMS [place] [facility] HospitalCLINISYNCNSoutheast Missouri Community Treatment CenterUrinalysis macro (dipstick) panel (U)on 79-88-3624Yjysapasm, UANegativeNegative - 4(70) +++ mg/dLNOFL HealthcareBlood, UANegativeNegative - 50 Tarun/mcLNOMS Healthcare Clarity, UAClearNOMS HealthcareColor, UAAmberNOMS HealthcareGlucose, UANegative Negative - 1999(110) ++++ mg/dLNOMS HealthcareInterpretation and review of laboratory resultsAbnormalNOMS HealthcareKetones, UANegativeNegative - 160(16) ++++ mg/dLNOMS HealthcareLeukocytes, UAPositiveNegative - 500+++ Joelle/mcLNOMS HealthcareNitrite, UAPositiveNegative - PositiveNOMS HealthcarepH, UA6.55 - 9 NOMS HealthcareProtein, UAPositiveNegative - 1999(20) ++++ mg/dLNOMS Healthcare Spec Grav, UA1.0151 - 1.03NOMS HealthcareUrobilinogen, UA1.00.2 - 12 mg/dLNOMS HealthcareNOFL HealthcareUrinalysis macro (dipstick) panel (U)on 06-15-2025 Bilirubin, UANegativeNegative - 4(70) +++ mg/dLNOMS HealthcareBlood, UANegative Negative - 50 Tarun/mcLNOMS HealthcareClarity, UAClearNOMS HealthcareColor, UA YellowNOMS HealthcareGlucose, UANegativeNegative - 1999(110) ++++ mg/dLNOMS HealthcareInterpretation and review of laboratory resultsNormalASH[facility] Healthcare Ketones, UANegativeNegative - 160(16) ++++ mg/dLNOMS HealthcareLeukocytes, UA NegativeNegative - 500+++ Joelle/[facility] HealthcareNitrite, UANegativeNegative - PositiveNOMS HealthcarepH, UA65 - 9NOMS HealthcareProtein, UANegativeNegative - 1999(20) ++++ mg/dLNOMS HealthcareSpec Grav, UA1.0151 - 1.03NOFL Healthcare Urobilinogen, UA1.00.2 - 12 mg/dLNOMS [facility] City HospitalNOFL HealthcareRECURRENT VAGINITIS (HTRX)on 57-13-2287RHMNLHQUV XKCVOHX1LKTQ HealthcareATOPOBIUM VAGINAE Not detectedNOFL HealthcareBVAB 2,3 (BACTERIAL VAGINOSIS ASSOCIATED BACTERIA 2, 3); MOBILUNCUS SPP22.558AbnormalNOFL HealthcareBVAB 2,3 (BACTERIAL VAGINOSIS ASSOCIATED BACTERIA 2, 3); MOBILUNCUS SPPDetectedAbnormalNOMS HealthcareCANDIDA ALBICANS, PARAPSILOSIS, KYUGEVQUEQ9BXOX HealthcareCANDIDA ALBICANS, PARAPSILOSIS, TROPICALISNot detectedNOMS HealthcareCANDIDA ZUGPSHBJ3CYYK HealthcareCANDIDA GLABRATANot detectedNOMS HealthcareCANDIDA TQOZJG5BKFA HealthcareCANDIDA KRUSEINot detectedNOMS HealthcareCHLAMYDIA PQVNKJWXYWU7MTHY HealthcareCHLAMYDIA TRACHOMATISNot detectedNOMS HealthcareERMB, C; MEFA25.177 AbnormalNOMS HealthcareERMB, C; MEFADetectedAbnormalNOMS HealthcareGARDNERELLA RQJWWPHLK26.544AbnormalNOMS HealthcareGARDNERELLA VAGINALISDetectedAbnormalNOMS HealthcareInterpretation and review of laboratory resultsAbnormalNOMS Healthcare MEGASPHAERA (TYPES 1, 2)0NOMS HealthcareMEGASPHAERA (TYPES 1, 2)Not detectedNOMS HealthcareMYCOPLASMA YOSGKJFUQB9NDMJ HealthcareMYCOPLASMA GENITALIUMNot detected NOMS HealthcareNEISSERIA RDPJEXJFJNE1BZLS HealthcareNEISSERIA GONORRHOEAENot detectedNOMS HealthcareTET B, TET M21.747AbnormalNOMS HealthcareTET B, TET M DetectedAbnormalNOMS HealthcareTRICHOMONAS [id number] HealthcareTRICHOMONAS VAGINALISNot detectedNOMS HealthcareNOMS HealthcareUS OB 14+ WEEKS ANATOMY SCAN on 38-34-5365CQ OB 14+ WEEKS ANATOMY SCANFINDINGS: A single, [...] Delivery: 10/14/25 Gestational Age as of 05/18/2025: 75m1oHxjvwzmwaw macro (dipstick) panel (U)on 25-65-7366Puypzqvbf, UANegativeNegative - 4(70) +++ mg/dLNOMS HealthcareBlood, UANegativeNegative [...] HealthcareNOMS Healthcare Urinalysis macro (dipstick) panel (U)on 21-47-1614Ubbjonxtr, UANegativeNegative - 4(70) +++ mg/dLNOMS HealthcareBlood, UAPositiveNegative - 50 Tarun/mcLNOMS HealthcareComment on above:traceClarity, UACloudyNOMS HealthcareColor, UAYellow NOMS HealthcareGlucose, UANegativeNegative - 2000(110) ++++ mg/dLNOMS Healthcare Interpretation and review of laboratory resultsAbnormalNOMS HealthcareKetones, UANegativeNegative - 160(16) ++++ mg/dLNOMS HealthcareLeukocytes, UATrace Negative - 500+++ Joelle/mcLNOMS HealthcareNitrite, UAPositiveNegative - Positive NOMS HealthcareComment on above:positivepH, UA7.55 - 9NOMS HealthcareProtein, UA NegativeNegative - 1999(20) ++++ mg/dLNOFL HealthcareSpec Grav, UA1.021 - 1.03 NOMS HealthcareUrobilinogen, UA0.20.2 - 12 mg/dLSaint John's Saint Francis Hospital Healthcare ALL CBC WITH AUTO DIFFon 62-77-1571IWPXQNNRB ABSOLUTE FIVQ2YCQS Healthcare Basophils/100 WBC (Bld)0.5 %0.2 - 2.0 %NOMS HealthcareEosinophils/100 WBC (Bld) 2.5 %0.9 - 7.0 %[facility] Medical CenterErythrocyte distribution width (RBC) [Ratio]17.3 %High11.0 - 15.0 %[facility] HealthcareHematocrit (Bld) [Volume fraction]32.1 %Low36.0 - 48.0 %[facility] Medical CenterHemoglobin (Bld) [Mass/Vol]10.4 g/dLLow12.0 - 16.0 g/dL [facility] Medical CenterIMMATURE GRANULOCYTES ABS AUTO0.01NOSaint Joseph Health CenterImmature granulocytes/100 WBC (Bld)0.1 %0.0 - 0.5 %[facility] CenterInterpretation and review of laboratory resultsAbnormalNOSaint Joseph Health CenterLYMPHOCYTES ABSOLUTE AUTO1.1 LowNOSaint Joseph Health CenterLymphocytes/100 WBC (Bld)14.4 %Low20.5 - 60.0 %[facility] MCH (RBC) [Entitic mass]23.8 pgLow26.7 - 34.0 pgNOSaint Francis Hospital & Health ServicesHC (RBC) [Mass/Vol]32.4 g/dL29.9 - 35.2 g/dLJohn J. Pershing VA Medical CenterMCV (RBC) [Entitic vol]73.5 fL Low81.0 - 99.0 fLJohn J. Pershing VA Medical CenterMONOCYTES ABSOLUTE AUTO0.5NOSaint Joseph Health Center Monocytes/100 WBC (Bld)7.1 %1.7 - 12.0 %[facility] Medical CenterNEUTROPHILS ABSOLUTE AUTO 5.5NOFL HealthcareNeutrophils/100 WBC (Bld)75.4 %High43.0 - 75.0 %[facility] Medical CenterPlatelet mean volume (Bld) [Entitic vol]11.1 fL9.5 - 13.5 fLJohn J. Pershing VA Medical CenterTB EO #0.2NOMS HealthcareTBH [id number] [facility] HospitalTB RBC4.37NOGeneral [facility] WBC7.3NOFL HealthcareCLINISYNCNOMS HealthcareUS OB TRANSVAGINALon 79-15-6471YO OB TRANSVAGINALEXAM: US OB TRANSVAGINAL HISTORY: Dating. [...] II, MD, PHD at 11-Mar-2025 10:13:58 AM [facility] TeleradiologyNormalNot AvailableComment on above:Order Comment: US OB TRANSVAGINAL No LMP recorded.ALL DEHYDROEPIANDROSTERONEon 87-90-2478DHOQ, LUALV393 ng/dL40 - 491 ng/dLASHLEY REGIONAL [facility] HealthcareComment on above:Age 1 - 5 years [...] developed and its performance characteristics determined by [employer]. It has not been cleared or approved by the Food and Drug Administration. Performed at: [address] [id number] Prototype Engineer Manager: Eliud Rodriguez MD, Phone: [phone] [facility] ANTI-MULLERIAN HORMONEon 96-61-2181JXLM-MULLERIAN HORMONE (AMH)2.79 ng/mL.NOMS HealthcareComment on above:For assays employing antibodies, the possibility exists for interference by heterophile antibodies in the samples.1 1.Gracie Hernandez Interferences in Immunoassays - still a threat. Clin. Chem. 2000; 46: 8191-1078. This test was developed and its performance characteristics determined by [employer]. It has not been cleared or approved [...] exclude an AMH-secreting ovarian tumor. Performed at: [employer] [address] [place] [id number] Prototype Engineer Manager: Burke Mackey MD, Phone: [phone] [facility] PhiladelphiaALL DHEA SULFATEon 15-58-1345UKMC-QGQDRDZ012.0 ug/dL 110.0 - 433.2 ug/dLNOSaint Joseph Health CenterALL FOLLICLE STIMULATING HORMONEon 06-16-2024 FSH4.6. mIU/mLNOMS HealthcareComment on above:Adult Female Range Follicular phase 3.5 - 12.5 Ovulation phase 4.7 - 21.5 Luteal phase 1.7 - 7.7 Postmenopausal 25.8 - 134.8 Performed at: [address] [id number] Prototype Engineer Manager: Nate Don PhD, Phone: [phone] ALL LUTEINIZING HORMONEon 61-57-4487JFMXUYYBJOV HORMONE(LH)7.6. mIU/mLNOMS HealthcareComment on above:Adult Female Range Follicular phase 2.4 - 12.6 Ovulation phase 14.0 - 95.6 Luteal phase 1.0 - 11.4 Postmenopausal 7.7 - 58.5 No Panel Informationon 90-41-2105ANPWRBAUUBPNB HealthcareALL CBC WITH AUTO DIFF on 78-66-6824ROGQGNDRJ ABSOLUTE AUTO0.0NOFL HealthcareBasophils/100 WBC (Bld)0.7 %0.2 - 2.0 %NOMS HealthcareEosinophils/100 WBC (Bld)2.3 %0.9 - 7.0 %[facility] Medical CenterErythrocyte distribution width (RBC) [Ratio]15.6 %High11.0 - 15.0 % [facility] CenterHematocrit (Bld) [Volume fraction]34.8 %Low36.0 - 48.0 %[facility] CenterHemoglobin (Bld) [Mass/Vol]10.9 g/dLLow12.0 - 16.0 g/dLJohn J. Pershing [facility] Medical Center IMMATURE GRANULOCYTES ABS AUTO0.01NOSaint Joseph Health CenterImmature granulocytes/100 WBC (Bld)0.2 %0.0 - 0.5 %[facility] Medical CenterInterpretation and review of laboratory resultsAbnormalNOSaint Joseph Health CenterLYMPHOCYTES ABSOLUTE AUTO1.4NOMS [facility] Lymphocytes/100 WBC (Bld)23.6 %20.5 - 60.0 %[facility]H (RBC) [Entitic mass]23.2 pgLow26.7 - 34.0 pgCox NorthHC (RBC) [Mass/Vol]31.3 g/dL29.9 - 35.2 g/dLCox NorthV (RBC) [Entitic vol]74.0 fLLow81.0 - 99.0 fLJohn J. Pershing VA Medical CenterMONOCYTES ABSOLUTE AUTO0.5NOSaint Joseph Health CenterMonocytes/100 WBC (Bld)7.8 % 1.7 - 12.0 %[facility] CenterNEUTROPHILS ABSOLUTE AUTO4.0NOMS [facility] Neutrophils/100 WBC (Bld)65.4 %43.0 - 75.0 %[facility] Medical CenterPlatelet mean volume (Bld) [Entitic vol]10.3 fL9.5 - 13.5 fLJohn J. Pershing VA Medical CenterTBH EO #0.1[facility] Healthcare TBH WUE821DZNZGeneral [facility] RBC4.70NOGeneral [facility] WBC6.1NSoutheast [facility] CLINISYNCNOFL HealthcareUS PELVIS W/ TRANSVAGINALon 61-07-1940[place] [id number] Ultrasound Report Signed Patient: VERONICA AYALA MR#: [id number] : 2005 Acct:[id number] Age/Sex: 18 / F ADM Date: 06/15/24 Loc: NOMS Attending Dr: Alex Antunez D.O. Ordering Physician: Alex Antunez D.O. Date of Service: 06/15/24 Procedure(s): US pelvis w/ transvaginal Accession Number(s): [id number] cc: TAMMY MARQUIS ; Alex Antunez D.O. The [place] [id number] Patient Name: VERONICA AYALA MRN: [facility]:[id number] date: 2005 Sex: F Assigned Patient Location: [facility] Current Patient Location: LAB Accession/Order Number: [id number] Exam Date: 06/15/2024 13:11 Report Date: 06/15/2024 22:02 At the request of: ALEX ANTUNEZ Procedure: US pelvis w/ transvaginal EXAM: [...] M.A. Signed By: 06/15/242203 DD/ 01 TD/TT: Gunite Mixer:HERBERTadiology, Radiologist, - 06/15/2024 The [place] [id number] Ultrasound Report Signed Patient: VERONICA AYALA MR#: [id number] : 2005 Acct:[id number] Age/Sex: 18 / F ADM Date: 06/15/24 Loc: NOM[facility] Attending Dr: Alex Antunez D.O. Ordering Physician: Alex Antunez D.O. Date of Service: 06/15/24 Procedure(s): US pelvis w/ transvaginal Accession Number(s): [id number] cc: TAMMY MARQUIS ; Alex Antunez D.O. [address] [address] Patient Name: VERONICA AYALA MRN: [facility]:[id number] date: 2005 Sex: F Assigned Patient Location: NOMS Current Patient Location: LAB Accession/Order Number: [id number] Exam Date: 06/15/2024 13:11 Report Date: 06/15/2024 22:02 At the request of: ALEX ANTUNEZ Procedure: US pelvis w/ transvaginal EXAM: [...] M.A. Signed By: 06/15/242203 DD/ 01 TD/TT: Gunite Mixer: [facility] Medical CenterRadiology Study observation (narrative)[facility] CenterUS PELVIS W/ TRANSVAGINALOrdered By: Radiologist Radiology on 40-50-0229UAUQ Tictail Work Phone: US PELVIS AND TRANSVAGon 29-50-9637JQ PELVIS AND TRANSVAGEXAMINATION: US PELVIS AND TRANSVAG [...] Electronically authenticated by: KIAN MONREAL Date: 2022-01-02 14:40[facility] PELVIS AND TRANSVAGon 27-35-1040AW PELVIS AND TRANSVAG EXAMINATION: US PELVIS AND [...] Electronically authenticated by: MELVIN ALONSO Date: 2021-10-12 15:53NoAv[facility] AUTO DIFFon 28-61-4354GRAG #0.0 103/ulNormal0.0-0.1The [facility] CenterComment on above:Performed By: #### CBC #### [facility] Laboratory [address] [place] [address] Cain KarenBasophils/100 WBC (Bld)0.3 %Normal0.2-2.0The [facility] Comment on above:Performed By: #### CBC #### [facility] [address] [place] [address] Cain KarenEO #0.0 103/ulNormal0.0-0.7The [facility] CenterComment on above: Performed By: #### CBC #### [facility] Laboratory [address] [place] [address] Cain KarenEosinophils/100 WBC (Bld)0.3 %Critically low0.9-7.0The [facility] CenterComment on above:Performed By: #### CBC #### [facility] [address] [place] [address] Cain KarenErythrocyte distribution width (RBC) [Ratio]14.3 %Hgknio96.0-15.0The [facility] CenterComment on above:Performed By: #### CBC #### [facility] [address] [place] [address] Cain KarenHematocrit (Bld) [Volume fraction]34.1 %Critically low36.0-48.0The [facility] CenterComment on above:Performed By: #### CBC #### [facility] [address] [place] [address] Cain KarenHemoglobin (Bld) [Mass/Vol]11.1 g/dLCritically low12.0-16.0The [facility] Hospitalment on above:Performed By: #### CBC #### [facility] [address] [place] [address] Cain OlsonenIG #0.02 10e3/ulNormal0.00-0.03The [facility] CenterComment on above:Performed By: #### CBC #### [facility] [address] [place] [address] Cainramona OlsonenIG %0.2 %Normal0.0-0.5The [facility] CenterComment on above: Performed By: #### CBC #### [facility] [address] [place] [address] Cain KarenLYMPH #0.9 103/ulCritically low1.2-3.8The [facility] CenterComment on above:Performed By: #### CBC #### [facility] [address] [place] [address] Cain KarenLymphocytes/100 WBC (Bld)9.3 %Critically low20.5-60.0The [facility] CenterComment on above:Performed By: #### CBC #### [facility] [address] [place] [address] Cain KarenMANUAL DIFF REQNONormalThe [facility] CenterComment on above: Performed By: #### CBC #### [facility] [address] [place] [address] Cain KarenMCH (RBC) [Entitic mass]25.6 pgCritically low26.7-34.0The [facility] Hospitalment on above:Performed By: #### CBC #### [facility] [address] [place] [address] Cain KarenMCHC (RBC) [Mass/Vol]32.6 g/wESmarui57.9-35.2The [facility] Comment on above:Performed By: #### CBC #### [facility] [address] [place] [address] Cain KarenMCV (RBC) [Entitic vol]78.8 fLCritically low79.1-95.6The [facility] HospitalComment on above:Performed By: #### CBC #### [facility] [address] [place] [address] Cain KarenMONO #0.6 103/ulNormal0.3-0.8The [facility] CenterComment on above: Performed By: #### CBC #### [facility] [address] [place] [address] Cain KarenMonocytes/100 WBC (Bld)6.3 %Normal1.7-12.0The [facility] Comment on above:Performed By: #### CBC #### [facility] [address] [place] [address] Cain KarenNEUT #8.0 103/ulCritically high1.4-6.5The [facility] CenterComment on above:Performed By: #### CBC #### [facility] [address] [place] [address] Cain KarenNeutrophils/100 WBC (Bld)83.6 %Critically high43.0-75.0The [facility] CenterComment on above:Performed By: #### CBC #### [facility] [address] [place] [address] Cain KarenPlatelet mean volume (Bld) [Entitic vol]11.0 fLNormal9.5-13.5The [facility] CenterComment on above:Performed By: #### CBC #### [facility] [address] [place] [address] Cain UsxncVYW465 103/laHtgxzm057-264Nzt [facility] CenterComment on above: Performed By: #### CBC #### [facility] [address] [place] [address] Cain KarenRBC4.33 106/ulNormal3.40-5.30The [facility] CenterComment on above: Performed By: #### CBC #### [facility] [address] [place] [address] Cain KarenWBC9.6 103/ulNormal4.0-11.0The [facility] CenterComment on above: Performed By: #### CBC #### [facility] [address] [place] [id number] Cain KarenCT ABD/PELV W CONon 28-32-1624BU ABD/PELV W CONCLINICAL HISTORY: ABDOMINAL DISTENSION (GASEOUS). [...] in the left ovary. Electronically authenticated by: NIDHI AGUILAR Date: 2021-05-05 14:12NormParma Community General [facility] URINE PROFILEon 10-27-8016Ntkqyszdd Ql (U)NegativeNormal NEGATIVEThe [facility] CenterComment on above:Performed By: #### ERUR, PREGU #### [facility] [address] [place], [place] [address] Cain KarenClarity (U)CLEARNormalCLEARThe [facility] CenterComment on above: Performed By: #### ERUR, PREGU #### [facility] [address] [place] [address] Cain KarenColor (U)LT. YELLOWNormalYELLOWMiami Valley HospitalComment on above:Performed By: #### KIERANR, PREGU #### [facility] [address] [place] [address] Cain KarenERUAHDA micrscopic examination will be performed if indicated.Normal The [facility]ville HospitalComment on above:Performed By: #### KIERANR, PREGU #### [facility] [address] [place] [address] Cain KarenGlucose Ql (U)NegativeNormalNEGATIVEMiami Valley HospitalComment on above:Performed By: #### KIERANR, PREGU #### [facility] [address] [place] [address] Cain KarenHemoglobin Ql (U)NegativeNormalNEGATIVEClinton Memorial Hospital HospitalComment on above:Performed By: #### KIERANR, PREGU #### [facility] [address] [place] [address] Cain KarenKetones Ql (U)NegativeNormalNEGATIVEMiami Valley HospitalComment on above:Performed By: #### KIERANR, PREGU #### [facility] [address] [place] [address] Cain KarenLEUKOCYTESNegativeNormalNEGATIVEMiami Valley HospitalComment on above:Performed By: #### KIERANR, PREGU #### [facility] [address] [place] [address] Cain KarenNitrite Ql (U)NegativeNormalNEGATIVEClinton Memorial Hospital HospitalComment on above:Performed By: #### KIERANR, PREGU #### [facility] [address] [place] [address] Cain KarenpH (U)6.5 [pH]Normal5-9Mi[facility] Valley HospitalComment on above: Performed By: #### KIERANR, PREGU #### [facility] [address] [place] [address] Cain KarenSPEC GRAVITY1.728Iyvpkz8.005-<=1.025The [facility] CenterComment on above:Performed By: #### BE, PREGU #### [facility] [address] [place] [address] Cain KarenUA PROTEINNegativeNormalNEGATIVE/ TRACEThe [facility] CenterComment on above:Performed By: #### BE, PREGU #### [facility] [address] [place] [address] Cain KarenUR MICRO INDNOT INDICATEDNormalThe [facility] CenterComment on above:Performed By: #### BE, PREGU #### [facility] [address] [place] [address] Cain KarenUrobilinogen Qn (U)0.2 {Dagoberto'U}/dLNormal0.2 - 1.0The [facility] CenterComment on above:Performed By: #### BE PREGU #### [facility] [address] [place] [address] Cain KarenLIPASEon 87-53-8658Owovdn [Catalytic activity/Vol]53.0 U/LNormal 23.0-300.0The [facility] CenterComment on above:Performed By: #### JUNE LIPA #### [facility] [address] [place] [address] Cain KarenPREGNANCY URon 18-78-8459QRSPGDFAZ, QUALNegativeNormalNEGATIVEThe [facility] CenterComment on above:Performed By: #### BE, PREGU #### [facility] [address] [place] [address] Cain KarenPROF 14(COMP METB)on 96-13-5899Akrqfky [Mass/Vol]3.7 g/dLNormal 3.5-5.0The [facility] CenterComment on above:Performed By: #### CMP, LIPA #### [facility] [address] [place] [address] Cain KarenAlbumin/Globulin [Mass ratio]1.2 {ratio}NormalThe [facility] Comment on above:Performed By: #### CMP, LIPA #### [facility] [address] [place] [address] Cain KarenALP [Catalytic activity/Vol]86 U/QZfoere38-142AxqMiami Valley Hospital Comment on above:Performed By: #### CMP, LIPA #### [facility] [address] [place] [address] Cain KarenALT [Catalytic activity/Vol]22 U/LNormal9-52The [facility] Comment on above:Performed By: #### CMP, LIPA #### [facility] [address] [place] [address] Cain KarenAnion gap [Moles/Vol]11.6 mmol/LNormalMiami Valley HospitalComment on above:Performed By: #### CMP, LIPA #### [facility] [address] [place] [address] Cain KarenAST [Catalytic activity/Vol]15 U/VGcolbh26-94XbdMiami Valley Hospital Comment on above:Performed By: #### CMP, LIPA #### [facility] [address] [place] [address] Cain KarenBilirubin [Mass/Vol]0.5 mg/dLNormal0.2-1.3TLima Memorial Hospital Comment on above:Performed By: #### CMP, LIPA #### [facility] [address] [place] [address] Cain KarenCalcium [Mass/Vol]9.2 mg/dLNormal8.4-10.2[facility] Comment on above:Performed By: #### CMP, LIPA #### [facility] [address] [place] [address] Cain KarenChloride [Moles/Vol]105 mmol/YQabmiw98-389ZwzMiami Valley Hospital Comment on above:Performed By: #### CMP, LIPA #### [facility] [address] [place] [address] Cain KarenCO2 [Moles/Vol]25.4 mmol/ZBvomxt34.0-30.0[facility] Comment on above:Performed By: #### CMP, LIPA #### [facility] [address] [place] [address] Cain KarenCreatinine [Mass/Vol]0.72 mg/dLNormal0.52-1.04The [facility] Comment on above:Performed By: #### CMP, LIPA #### [facility] [address] [place] [address] Cain KarenGlobulin (S) [Mass/Vol]3.2 g/dLNormalThe [facility] CenterComment on above:Performed By: #### CMP, LIPA #### [facility] [address] [place] [address] Cain KarenGlucose [Mass/Vol]88 mg/lDTrkihr13-131Yyq [facility] CenterComment on above:Performed By: #### CMP, LIPA #### [facility] [address] [place] [address] Cain KarenPotassium [Moles/Vol]4.0 mmol/LNormal3.4-5.0[facility] Comment on above:Performed By: #### CMP, LIPA #### [facility] [address] [place] [address] Cain KarenProtein [Mass/Vol]6.9 g/dLNormal6.1-8.2[facility] HospitalComment on above:Performed By: #### CMP, LIPA #### [facility] [address] [place] [address] Cain KarenSodium [Moles/Vol]138 mmol/EMqzfch184-866Zet [facility] Comment on above:Performed By: #### CMP, LIPA #### [facility] [address] [place] [address] Cain KarenUrea nitrogen [Mass/Vol]8.0 mg/dLNormal6.4-19.3The [facility] Comment on above:Performed By: #### CMP, LIPA #### [facility] [address] [place] [address] Cain KarenUrea nitrogen/Creatinine [Mass ratio]11.1 mg/mgNormalThe [facility] CenterComment on above:Performed By: #### TEENA WATKINS #### [facility] [address] [place] [id number] Cain Ellison PELVIS TRANSVAGon 83-04-8084EW PELVIS TRANSVAGEXAM: US PELVIS TRANSVAG HISTORY: Cyst [...] Electronically authenticated by: JONI GUZMAN Date: 2021-05-05 15:27[facility] Vital Signs Date TimeVital SignValuePerforming LqfctojjwXstnrhpt01-62-5871 15:28-0400Body mass index (BMI) [Ratio]28.97 kg/m2Munira LALA Work Phone: [facility] CenterHijynxifgh97-98-9406 15:28-0400Body .57 kgMunira LALA Work Phone: [facility] CenterYytrqwqazg55-93-2869 15:28-0400Diastolic blood fnqshhir03 mm[Hg]Munira LALA Work Phone: [employer] InternationalSaint Joseph Health CenterClatrczkcz82-29-0277 15:28-0400Systolic blood jooujson144 mm[Hg]Munira LALA Work Phone: [facility] CenterOhazvwulqj51-02-5926 15:16-0400Body mass index (BMI) [Ratio]28.92 kg/m2Munira Garcia PA Work Phone: [phone] [place], [place] [address]Ruqgdtoczp64-47-3662 15:16-0400Body ocixaw10.43 kgAmy Gigi PA Work Phone: [phone] [place], [place] [address]Tsgvioqrao37-07-9370 15:16-0400Diastolic blood cfmhcuab15 mm[Hg]Munira Garcia PA Work Phone: [phone] [place], [place] [address]Eqqgpkpvbe01-35-2894 15:16-0400Systolic blood ajwzjclj906 mm[Hg]Munira Garcia PA Work Phone: [phone]10-01-2025 13:59-0400Body mass index (BMI) [Ratio]28.84 kg/n2KgwerdboLeonora Olm[place] MANAGER STATISTICAL PROGRAMMING Work Phone: [phone] [place], [place] [address]Kmbspwyblc80-44-9364 13:59-0400Body unagxm47.2 kg Leonora [place] MANAGER STATISTICAL PROGRAMMING Work Phone: [phone] [place], [place] [address]Kprksrwijk72-13-2060 13:59-0400Diastolic blood aveklkjv36 mm[Hg]Leonora [place] MANAGER STATISTICAL PROGRAMMING Work Phone: [phone] [place], [place] [address]Ifoabpfmji73-05-6898 13:59-0400Systolic blood pkcwlcbe677 mm[Hg]Leonora [place] MANAGER STATISTICAL PROGRAMMING Work Phone: [phone])[facility] [place], [place] [address]Fkckfqckbd84-86-7764 15:28-0400Body mass index (BMI) [Ratio]28.69 kg/o7Pchfp Tulio DO Work Phone: [phone])[facility] [place], [place] [address]Vgxjhrzkye49-17-7783 15:28-0400Body atxkga24.81 kgCorey Tulio DO Work Phone: [phone])[facility] [place], [place] [address]Jtwaqpbdlj47-54-0995 15:28-0400Diastolic blood avswwasp45 mm[Hg]Alex Tulio DO Work Phone: [phone] [place], [place] [address]Zkopkmhpjw43-19-4971 15:28-0400Systolic blood ijcfdfmt821 mm[Hg]Alex Tulio DO Work Phone: [phone])[facility] [place], [place] [address]Bjfuachnig58-24-0347 13:52-0400Body mass index (BMI) [Ratio]28.97 kg/u9Uznhi Tulio DO Work Phone: [facility] CenterTmbgpcblla45-55-8574 13:52-0400Body .57 kgCorey Tulio DO Work Phone: [facility] CenterGlcbpxrqlv32-11-6533 13:52-0400Diastolic blood osdswxbt79 mm[Hg]Alex Tulio DO Work Phone: [phone] [place], [place] [address]Lchvpysnee99-57-7607 13:52-0400Systolic blood mrmioxjv386 mm[Hg]Alex Tulio DO Work Phone: [phone] [place], [place] [address]Jjkzlxbsvg91-91-9990 15:54-0400Body mass index (BMI) [Ratio]28.24 kg/m2Amy Gigi LALA Work Phone: [phone] [place], [place] [address]Hzpkwqpjos81-25-8282 15:54-0400Body ekhlay89.62 kgAmy Gigi LALA Work Phone: [phone] [place], [place] [address]Tmixgzbkbe94-98-0029 15:54-0400Diastolic blood irwlbkft11 mm[Hg]Munira LALA Work Phone: [phone] [place], [place] [address]Xptvirigpt55-49-9330 15:54-0400Systolic blood vhnfteit097 mm[Hg]Munira Garcia PA Work Phone: [phone]-[facility] CenterJohn J. [facility] Medical CenterLmtdnqaaab00-17-4681 13:34-0400Body mass index (BMI) [Ratio]29.35 kg/d4Dprel Tulio DO Work Phone: [phone] [place], [place] [address]Jfpvibnxhd76-52-9883 13:34-0400Body ebqqix32.56 kgCorey Tulio DO Work Phone: [phone] [place], [place] [address]Xymazgkqww68-36-8599 13:34-0400Diastolic blood ynwxekfx88 mm[Hg]Alex Tulio DO Work Phone: [phone] [place], [place] [address]Hlwayvuboq27-34-7549 13:34-0400Systolic blood mm[Hg]Alex Tulio DO Work Phone: [phone] [place], [place] [address]Oxlawykvfx37-41-7323 11:07-0400Body .6 Califacundo Hernandes MANAGER STATISTICAL PROGRAMMING Work Phone: [facility] CenterKrjcobqvwb66-80-2007 11:07-0400Body mass index (BMI) [Ratio]29.18 kg/f7ZffeumNicole Hernandes MANAGER STATISTICAL PROGRAMMING Work Phone: [facility] CenterHtzwjnlwwk46-40-4923 11:07-0400Body zcyegx47.11 kgNicole Hernandes MANAGER STATISTICAL PROGRAMMING Work Phone: [facility] CenterIcorzhrpqz72-19-4189 11:07-0400Diastolic blood nextztuv04 mm[Hg]Nicole Hernandes MANAGER STATISTICAL PROGRAMMING Work Phone: [facility] CenterGrwrkaqtwl34-76-7212 11:07-0400Heart rate79 /min Nicole Hernandes MANAGER STATISTICAL PROGRAMMING Work Phone: [facility] CenterOryxgnbysi60-76-2420 11:07-0400Respiratory rate16 /minSfacundo Hernandes MANAGER STATISTICAL PROGRAMMING Work Phone: [facility] CenterBzzzjvjopp90-05-3885 11:07-9092LcI2% (BldA) [Mass fraction]98 %Nicole Hernandes MANAGER STATISTICAL PROGRAMMING Work Phone: [facility] CenterBbyonzlfpb90-91-0774 11:07-0400Systolic blood gvbqqind102 mm[Hg]Nicole Hernandes MANAGER STATISTICAL PROGRAMMING Work Phone: [facility] CenterCfylcgoecy24-69-2780 13:36-0500Body mass index (BMI) [Ratio]32.58 kg/x0Yyceb Tulio DO Work Phone: [facility] CenterJzrteqaswj85-38-4614 13:36-0500Body gncudn30.09 kgCorey Tulio DO Work Phone: [facility] CenterIrdnigldfj99-03-1076 13:36-0500Diastolic blood mm[Hg]Alex Tulio DO Work Phone: [facility] CenterQbytbbdizl51-80-4138 13:36-0500Systolic blood imwlrnzc520 mm[Hg]Alex Tulio DO Work Phone: [facility] Healthcare Encounters Encounter DateEncounter TypeCare ProviderFacilityStart: 08-26-2025 End: 28-75-5447Qeczmvwon Result EncounterLeonora Contreraserly MANAGER STATISTICAL PROGRAMMING Work Phone: noms External Department UnsolicitedStart: 08-26-2025 End: 81-64-9205Hgccyzkyy Result EncounterLeonora Contreraserly MANAGER STATISTICAL PROGRAMMING Work Phone: noms External Department UnsolicitedStart: 08-25-2025 End: 10-21-3890vewdygsgnhAJZ RAMEYNot AvailableStart: 08-25-2025 End: 53-47-9392Fdqlpp outpatient visit 15 minutesAmy Gigi LALA Work Phone: [facility] [place] OBGYNComment on above:Urinary tract infection without hematuria, site unspecified (Primary Dx); Third trimester ([facility]); 32 weeks gestation of ([facility])Start: 08-25-2025 End: 13-13-7097Yzkkwq flowsheetMunira LALA Work Phone: [facility] [place] [facility]BGYNStart: 08-25-2025 End: 16-10-6085Vbjxgk flowsheetMunira Garcia PA Work Phone: NOJ[facility] [place] OBGYNStart: 08-22-2025 End: 35-43-0888Fudjohzfo Result EncounterCorey Tulio DO Work Phone: noms External Department UnsolicitedStart: 08-22-2025 End: 67-31-5927Lbqitczwq Result EncounterCorey Tulio DO Work Phone: NOKU External Department UnsolicitedStart: 08-19-2025 End: 62-51-6857Hbiigstdr Result EncounterCorey Tulio DO Work Phone: noms External Department UnsolicitedStart: 08-19-2025 End: 63-85-3918Hqvdcikrh Result EncounterCorey Tulio DO Work Phone: noms External Department UnsolicitedStart: 08-11-2025 End: 94-34-6199Qulvbl outpatient visit 15 minutesAmy Gigi LALA Work Phone: [facility] [place] OBGYNComment on above:Third trimester ([facility]); 30 weeks gestation of ([facility])Start: 08-11-2025 End: 98-38-8704oruhvdwchcEUZ RAMEYNot AvailableStart: 07-27-2025 End: 98-55-1223Hqcsnk Quinn Olmstead NP Work Phone: [facility] [place] OBGYNStart: 07-27-2025 End: 38-23-4146Urxrxc flowsPablo Olmstead NP Work Phone: [facility] [place] [facility]BGYNStart: 07-27-2025 End: 51-85-3912ghvitjgwabNIJWAHBM EBERLYNot AvailableStart: 07-27-2025 End: 96-25-3131Eccjbe outpatient visit 15 minutesLeonora Olmstead NP Work Phone: [facility] [place] OBGYNComment on above:Anemia, unspecified type (Primary Dx); 28 weeks gestation of ([facility]); Third trimester ([facility]); Elevated glucose tolerance testStart: 07-25-2025 End: 56-89-5843Xuhserexe Result EncounterGeneric External Data ProviderNOMS External Department UnsolicitedStart: 07-25-2025 End: 68-87-9038Vbvdwothi Result EncounterGeneric External Data ProviderNOMS External Department UnsolicitedStart: 07-13-2025 End: 10-96-3903Xbqbga outpatient visit 15 minutesCorey Tulio DO Work Phone: [facility] [place] OBGYNComment on above:Cystitis (Primary Dx); 26 weeks gestation of ([facility]); Second trimester ([facility]); Gastroesophageal reflux in ([facility])Start: 07-13-2025 End: 97-81-1408lpuvkuojcqSGZHF FAZIONot AvailableStart: 07-13-2025 End: 43-34-5541Lomrdw flowsheetCorey Tulio DO Work Phone: [facility] [place] [facility]BGYNStart: 07-13-2025 End: 34-79-6713Cvwcol flowsheetCorey Tulio DO Work Phone: NOBW [place] OBGYNStart: 06-15-2025 End: 39-26-8269Lcnnot flowsheetCorey Tulio DO Work Phone: [facility] [place] [facility]BGYNStart: 06-15-2025 End: 42-35-1732Sonnvb flowsheetCorey Tulio DO Work Phone: [facility] [place] [facility]BGYNStart: 06-15-2025 End: 30-70-1370Aquius outpatient visit 15 minutesCorey Tulio DO Work Phone: noMS [place] OBGYNComment on above:22 weeks gestation of ([facility]); Second trimester ([facility]); Diabetes mellitus screeningStart: 06-15-2025 End: 00-95-6529nrjfscqappTSPHO FAZIONot AvailableStart: 05-31-2025 End: 59-57-4117wyetsfdziqMZL RAMEYNot AvailableStart: 05-18-2025 End: 41-66-0452Ssknrc outpatient visit 15 minutesMunira LALA Work Phone: NOMS BCP OBComment on above:Screening, , for anatomic survey ([facility]); STD exposure; Vaginal discharge; Second trimester ([facility]); 18 weeks gestation of ([facility])Start: 05-18-2025 End: 72-86-6141ypeuphgsacTVE RAMEYNot AvailableStart: 05-18-2025 End: 15-57-2212Qxloed flowsJames LALA Work Phone: [facility] BCP OBStart: 05-18-2025 End: 26-84-0240Uzxasw Lela LALA Work Phone: [facility] BCP OBStart: 05-18-2025 End: 62-78-5093Ljvqtkik Result EncounterMunira LALA Work Phone: NOMS External Department UnsolicitedStart: 04-06-2025 End: 86-51-2389Qjvust flowsheetCorey Tulio DO Work Phone: [facility] BCP OBStart: 04-06-2025 End: 30-93-2500Lozoic flowsheetCorey Tulio DO Work Phone: [facility] BCP OBStart: 04-06-2025 End: 63-61-3784Urhzbq outpatient visit 15 minutesCorey Tulio DO Work Phone: NOMS BCP OBComment on above:First trimester ; 12 weeks gestation of ; Urinary tract infection without hematuria, site unspecified; Other iron deficiency anemiaStart: 04-06-2025 End: 54-92-8237bqidhaptzzBWEWH FAZIONot AvailableStart: 04-05-2025 End: 34-24-5223Kaucux Heide Hernandes MANAGER STATISTICAL PROGRAMMING Work Phone: NOMS CI FMStart: 04-05-2025 End: 99-48-7245Tvikmt Heide Hernandes MANAGER STATISTICAL PROGRAMMING Work Phone: NOMS CI FMStart: 04-05-2025 End: 63-95-9166Fhxgeu outpatient visit 25 minutesShgaye Hernandes MANAGER STATISTICAL PROGRAMMING Work Phone: NOMS CI FMComment on above:Jaw pain (Primary Dx); Major depressive disorder, single episode, 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) (CMS/HCC); Otalgia of both earsStart: 04-05-2025 End: 24-79-9438gwzhoaimqxOPJMBX M SHIVELYNot AvailableStart: 04-01-2025 End: 86-70-5481Obsvbjzzp Result EncounterGeneric External Data ProviderNOMS External Department UnsolicitedStart: 04-01-2025 End: 57-46-8516Afryehlfu Result EncounterGeneric External Data ProviderNOMS External Department UnsolicitedStart: 03-10-2025 End: 76-88-2272ekeigiqltyJJHODX SHIVELYNot AvailableStart: 03-10-2025 End: 47-38-6041Vyamxx outpatient visit 5 minutesNoms Bcp Ob Tulio NurseNOMS BCP OBComment on above:GA: 4f0kBnans: 03-10-2025 End: 01-41-1007pcwrblgzhgUWRIYL SHIVELYNot AvailableStart: 09-07-2024 End: 72-55-3908Jskane flowsheetCorey Tulio DO Work Phone: noms BCP OBStart: 09-07-2024 End: 60-18-9716Zgfsjy flowsheetCorey Tulio DO Work Phone: NONO BCP OBStart: 09-07-2024 End: 61-03-0580Pjuvtn outpatient visit 15 minutesCorey Tulio DO Work Phone: [facility] OBComment on above:PCOS (polycystic ovarian syndrome); Hormone imbalance; Pelvic pain in female; Pain in female genitalia on intercourseStart: 09-07-2024 End: 09-11-3627koaguxjgyzGVDVU FAZIONot AvailableStart: 06-15-2024 End: 88-85-2740Hdgbrkvhr Result EncounterGeneric External Data ProviderNOMS External Department UnsolicitedStart: 06-15-2024 End: 07-23-9240Nozvgkqrk Result EncounterGeneric External Data ProviderNOMS External Department UnsolicitedStart: 01-02-2022 End: 07-48-8000gtbxwyyxtdGD HEAVENLY KRYSTAFacility:Z0Omdbs: 10-12-2021 End: 76-10-9751rpgdiglhlnOK HEAVENLY KARIMANIKFacility:I2Htnio: 05-05-2021 End: 59-74-6802pgmdefoklnEX TAMMY ALDAFacility:H1 Procedures DateProcedureProcedure DetailPerforming ClinicianStart: 75-33-0850PEH CBC WITH AUTO DIFFKristina Ishan MANAGER STATISTICAL PROGRAMMING Work Phone: Start: 47-45-6436Qfcxb dip stick/tablet rgnt non-auto w/o micrscpKristina Ishan MANAGER STATISTICAL PROGRAMMING Work Phone: Start: 71-00-0838QMWLHGT TOLERANCE 3 HOURCorey Tulio DO Work Phone: Start: 18-40-1546GYP UA (CLEAN/CATCH) ORGAN INSTALLER/MICRO IF IND.Alex Tulio DO Work Phone: Start: 72-93-7659Jycap dip stick/tablet rgnt non-auto w/o micrscpAmy Gigi LALA Work Phone: Start: 15-22-3177Ewkcz dip stick/tablet rgnt non-auto w/o micrscpKrbonny Olmstead NP Work Phone: Start: 46-80-9653NPY CBC WITH AUTO DIFFCorey Tulio DO Work Phone: Start: 44-91-1794Kvxuk dip stick/tablet rgnt non-auto w/o micrscpCorey Tulio DO Work Phone: Start: 55-88-9409Roqzq dip stick/tablet rgnt non-auto w/o micrscpCorey Tulio DO Work Phone: Start: 42-73-0393ZVWMXMUCO VAGINITIS (HTRX)Munira LALA Work Phone: Start: 63-80-0012Dgiwd dip stick/tablet rgnt non-auto w/o micrscpAmy Gigi LALA Work Phone: Start: 44-30-1042Lvyjd dip stick/tablet rgnt non-auto w/o micrscpCorey Tulio DO Work Phone: Start: 35-49-4205TJS CBC WITH AUTO DIFFCorey Tulio DO Work Phone: Start: 81-37-9532GU PELVIS W/ TRANSVAGINALGeneric External Data ProviderStart: 45-98-4900AEJ ANTI-MULLERIAN HORMONECorey Tulio DO Work Phone: Start: 74-92-1439UAX CBC WITH AUTO DIFFCorey Tulio DO Work Phone: Start: 39-86-2149ZNQ DEHYDROEPIANDROSTERONECorey Tulio DO Work Phone: Start: 27-31-5956SPG DHEA SULFATEGeneric External Data ProviderStart: 69-71-5458IRD FOLLICLE STIMULATING HORMONEGeneric External Data ProviderStart: 65-66-9134NTC LUTEINIZING HORMONEGeneric External Data Provider Plan of Treatment DateCare ActivityDetailAuthorStart: 09-13-2025 End: 50-16-5845Tnrxozi encounter hrimcuzka97/18/2025 9:20 AM EST Routine NOMK[facility] AGUST[facility] [address] [facility] [facility] [address] [place], [id number] Alex Antunez DO [address] [place], [place] [id number] [facility]ley [place] OBGYNStart: 08-25-2025 End: 89-42-1896Mryenyy encounter whuphgzlc06/30/2025 3:20 PM EDT Routine [facility] AGUSTIN [address] [place], [id number] Munira Garcia PA [address] [place], [place] [id number] [facility] [place] OBGYNStart: 07-27-2025 End: 78-11-9148Wvwmbmisrdh of glucose 3 hours after glucose challenge for glucose tolerance testGlucose tolerance, 3 hours Lab Routine Elevated glucose tolerance test Expected: 07/27/2025 (Approximate), Expires: 07/27/2026[facility] Work Phone: comment on above:Expected: 07/27/2025 (Approximate), Expires: 07/27/2026Start: 07-27-2025 End: 37-94-0326Qmikafe encounter kdyxivukd13/01/2025 1:50 PM EDT Routine [facility] [address] [facility] [place], [id number] Leonora Olmstead, MANAGER STATISTICAL PROGRAMMING [address] [place] [phone] SANTINO [place] OBGYNStart: 07-13-2025 End: 77-30-7831Nuqbaur encounter procedureNOMS [place] OBGYNComment on above: ArrivedStart: 07-13-2025 End: 78-55-1943EV for pregnancyUS OB follow up transabdominal approach Imaging Routine Second trimester ([facility]) Expected: 07/13/2025, Expires: 11/12/2025[facility] Work Phone: comment on above:Expected: 07/13/2025, Expires: 11/12/2025Start: 13-54-5107EWCNK-19 Vaccine ()COVID-19 Vaccine ()NOMS HealthcareStart: 11-73-9221Lxmdlhxft vaccinationNOFL HealthcareStart: 06-15-2025 End: 30-23-5228YFC panel - Blood by Automated countCBC Lab Routine Diabetes mellitus screening Expected: 06/15/2025 (Approximate), Expires: 06/15/2026[facility] Work Phone: comment on above:Expected: 06/15/2025 (Approximate), Expires: 06/15/2026Start: 06-15-2025 End: 72-73-1216Pgsknjlawar of glucose 1 hour after glucose challenge for glucose tolerance testGlucose tolerance, 1 hour Lab Routine Diabetes mellitus screening Expected: 06/15/2025 (Approximate), Expires: 06/15/2026[facility] HealthcareComment on above:Expected: 06/15/2025 (Approximate), Expires: 06/15/2026Start: 06-15-2025 End: 56-45-1005Tblhrab encounter procedureNOMS BCP OBComment on above:Arrived Start: 05-31-2025 End: 00-25-8181Anjgibzjxbjc / ancillary services odtehkehuw91/05/2025 8:30 AM EDT Ancillary Procedure [facility] [address] [facility] [place] [phone] NOMS BCP OBStart: 05-18-2025 End: 11-25-9019Vzcqocz encounter dacppjtkd11/23/2025 3:30 PM EDT Routine [facility] [address] [facility] [place] [phone] Munira Garcia PA [address] [place] [address] [place] [address] ArrivedNOMS BCP OBComment on above: ArrivedStart: 05-18-2025 End: 84-46-5123Bzcnw fetoprotein, maternalAlpha fetoprotein, maternal Lab Routine 18 weeks gestation of ([facility]) Expected: 05/18/2025 (Approximate), Expires: 06/18/2025NOMS HealthcareComment on above:Expected: 05/18/2025 (Approximate), Expires: 06/18/2025Start: 05-18-2025 End: 25-37-9941RH for pregnancyUS OB 14+ weeks anatomy scan Imaging Routine Screening, , for anatomic survey ([facility]) Expected: 05/18/2025, Expires: 08/18/2025NOMS HealthcareComment on above:Expected: 05/18/2025, Expires: 08/18/2025Start: 05-04-2025 End: 57-11-7666Peaymer encounter samzhtakr57/09/2025 2:30 PM EDT Routine [facility] [address] [facility] [place] [phone] Munira Garcia PA [address] [place] [address] [place] [address] NOMS BCP OBStart: 04-06-2025 End: 35-22-6038Bffbpkr encounter procedureNOMS BCP OBComment on above:Arrived Start: 04-05-2025 End: 17-75-6938Pimszrz encounter procedureNOMS BCP OBComment on above:Arrived Start: 03-10-2025 End: 20-23-4478XVI/RhABO/Rh Lab Routine Missed menses , unspecified gestational age Expected: 03/10/2025 (Approximate), Expires: 03/10/2026NOMS HealthcareComment on above:Expected: 03/10/2025 (Approximate), Expires: 03/10/2026Start: 03-10-2025 End: 60-37-8035Fzusc type and Indirect antibody screen panel - BloodType and screen Lab Routine Missed menses , unspecified gestational age Expected: 03/10/2025 (Approximate), Expires: 03/10/2026NOMS HealthcareComment on above:Expected: 03/10/2025 (Approximate), Expires: 03/10/2026Start: 03-10-2025 End: 35-15-5145Ebohs of abuse panel - Urine by Screen methodRapid drug screen, urine Lab Routine , unspecified gestational age Encounter for supervision of normal first in first trimester Expected: 03/10/2025 (Approximate), Expires: 03/10/2026NOMS HealthcareComment on above:Expected: 03/10/2025 (Approximate), Expires: 03/10/2026Start: 03-09-2025 End: 72-70-5296WO Pelvis transvaginalUS OB transvaginal Imaging Routine Missed menses Expected: 03/09/2025, Expires: 06/09/2025[facility] Work Phone: comment on above:Expected: 03/09/2025, Expires: 06/09/2025Start: 11-01-2024 End: 72-71-9425Nrwrncs encounter kvsfjwabn85/06/2025 1:20 PM EST Consult [facility] [address] [facility] [place] [phone] Alex Antunez, DO [address] [facility] [address] [place] [address] [facility] OBStart: 09-07-2024 End: 05-56-7767Piqqcqc encounter dmpszholk59/12/2024 8:40 AM EST Office Visit [facility] OB [address] [place] [phone] Alex Antunez, DO [address] [place] [address] [facility] OBStart: 57-09-0028Smudqfimz vaccination Influenza Vaccine (#1)NOM HealthcareStart: 43-14-9908Jpuwuzinq B Vaccines (1 of 3 - 19+ 3-dose series)Hepatitis B Vaccines (1 of 3 - 19+ 3-dose series)NOM HealthcareStart: 71-61-0254Zfmhdnsjxrob Vaccine: Pediatrics (0 to 5 Years) and At-Risk Patients (6 to 64 Years) (1 of 2 - PCV)Pneumococcal Vaccine: Pediatrics (0 to 5 Years) and At-Risk Patients (6 to 64 Years) (1 of 2 - PCV)NOM HealthcareStart: 34-75-0836Rzpixbebmoaxq B Vaccine (1 of 2 - Standard) Meningococcal B Vaccine (1 of 2 - Standard)NOM HealthcareStart: 80-65-7989BCI Vaccines (1 - 3-dose series)HPV Vaccines (1 - 3-dose series)[facility] Healthcare Start: 04-37-4730Igsxlnv of varicella vaccinationVaricella Vaccines (1 of 2 - 13+ 2-dose series)NOM HealthcareStart: 82-25-0529HJzX/Tdap/Td Vaccines (1 - Tdap)DTaP/Tdap/Td Vaccines (1 - Tdap)NOM HealthcareStart: 80-40-6741PUQ Vaccines (1 of 1 - Standard series)MMR Vaccines (1 of 1 - Standard series)[facility] Medical CenterBacteria identified in Urine by CultureUrine culture Microbiology Routine Missed menses Ordered: 03/10/2025[facility] HealthcareComment on above: Ordered: 03/10/2025acteria identified in Urine by CultureUrine culture Microbiology Routine Cystitis Ordered: 07/13/2025[facility] HealthcareComment on above:Ordered: 5CBC W Auto Differential panel - BloodCBC and differential Lab Routine Missed menses , unspecified gestational age Ordered: 03/10/2025[facility] HealthcareComment on above:Ordered: 03/10/2025BC W Auto Differential panel - BloodCBC and differential Lab Routine 32 weeks gestation of ([facility]) Ordered: 08/25/2025[facility] Healthcare Work Phone: comment on above:Ordered: 08/25/2025HLAMYDIA TRACHOMATIS (GENITO/STI)CHLAMYDIA TRACHOMATIS (GENITO/STI) Lab Routine Vaginal discharge Ordered: 05/18/2025[facility] HealthcareComment on above:Ordered: 05/18/2025 Hemoglobin A1c/Hemoglobin.total in BloodHemoglobin A1c Lab Routine Missed menses , unspecified gestational age Ordered: 03/10/2025[facility] Comment on above:Ordered: 03/10/2025Hepatitis B virus surface Ag [Presence] in Serum or Plasma by ImmunoassayHepatitis B surface antigen Lab Routine Missed menses , unspecified gestational age Ordered: 03/10/2025[facility] Comment on above:Ordered: 03/10/2025Hepatitis C virus Ab [Presence] in Serum or Plasma by ImmunoassayHepatitis C antibody Lab Routine Missed menses , unspecified gestational age Ordered: 03/10/2025[facility] HealthcareComment on above: Ordered: 03/10/2025HIV-1/HIV-2 antigen/antibody combination immunoassayHIV-1 and HIV-2 antibodies Lab Routine Missed menses , unspecified gestational age Ordered: 03/10/2025[facility] HealthcareComment on above:Ordered: 03/10/2025 Neisseria gonorrhoeae DNA [Presence] in Unspecified specimen by STEVO with probe detectionNeisseria gonorrhea DNA probe, direct Lab Routine Vaginal discharge Ordered: 05/18/2025[facility] HealthcareComment on above:Ordered: 05/18/2025 ProgesteroneProgesterone Lab Routine Hormone imbalance Ordered: 09/07/2024[facility] Healthcare Work Phone: comment on above:Ordered: 09/07/2024eagin Ab [Presence] in Serum by RPRRPR Lab Routine Missed menses , unspecified gestational age Ordered: 03/10/2025[facility] HealthcareComment on above:Ordered: 03/10/2025Rubella antibody, IgGRubella antibody, IgG Lab Routine Missed menses , unspecified gestational age Ordered: 03/10/2025[facility] HealthcareComment on above:Ordered: 03/10/2025SURESWAB(R) ADVANCED VAGINITIS PLUS, TMASURESWAB(R) ADVANCED VAGINITIS PLUS, TMA Pathology and Cytology Routine Vaginal discharge Ordered: 05/18/2025[facility] Healthcare Work Phone: comment on above:Ordered: 05/18/2025US Pelvis transvaginalUS OB transvaginal Imaging Routine Missed menses 03/10/2025 2:28 PM EDTJohn J. [facility] Payers DatePayer CategoryPayerPolicy [id number] [id number] 2023Medicaid (Managed Care) [id number] [id number] [id number] 2.16.840.1.161850.3.57[id number] 2..840.1.220159.3.57[id number] 2..840.1.472975.3.57[id number] 2..840.1.403913.3.57[id number] 2.16.840.1.266721.3.579.[id number] 2.16.840.1.350585.3.579.[id number] 2.16.840.1.012907.3.579.[id number] 2.16.840.1.129590.3.579.[id number] 2.16.840.1.458059.3.57[id number] 2.16.840.1.951045.3.57[id number] 2.16.840.1.932629.3.579.2.042785-78-8397Zbdgxnq9912496 2.16.840.1.631038.3.57[id number] 2.16.840.1.680294.3.579.2.[id number] 2.16.840.1.114553.3.57[id number] 2.16.840.1.530219.3.57[id number] 2.16.840.1.341000.3.57[id number] Social History DateTypeDetailFacilityStart: 12-30-2023 End: 38-22-5580Agomrnf smoking status NHISNever smoked tobaccoNOMS Healthcare Start: 12-30-2023 End: 34-42-6824Mcvktdm of Social functionNOMS HealthcareStart: 12-30-2023 End: 32-76-8162Wkrdeov use panelNOFL HealthcareStart: 11-35-6933Zpn assigned at birthNot on fileNOMS HealthcareStart: 89-79-8921SqscowrkzMSYH HealthcareStart: 54-08-2436Yvhetsn use and exposureSmokeless tobacco non-userNOMS Healthcare Start: 04-05-2025 End: 12-81-1404Xjjsyxtsy beverage intakeLifetime non-drinker (finding)NOMS HealthcareStart: 92-84-4094VezFzrexbGAGK HealthcareNEGATED: Highlighted row Start: NINFHistory of tobacco usePassive smokerNOFL Healthcare Functional Status KagqQgmgcewmtrYuxogbTdldhomg11-72-0342Xocrabb Health Questionnaire 2 item (PHQ- 2) [Reported][facility] Healthcare Clinical Notes 09-07-2024 to 08-25-2025 Note Date & AkoeZimyCjnjwcwl85-79-8681 History of Present illness Narrative* Leonora Olmstead, MARION - 08/25/2025 3:20 PM EDT Reason for Appointment: Patient ID: Veronica Ayala is a 19 y.o. female who [...] Size of fetus inconsistent with dates, antepartum ([facility]) 08/10/2025 Resolved Ambulatory Problems Diagnosis [...] nursing note reviewed. Exam conducted with a hydraulic dredge operator present. Vitals: Estimated body mass index is 28.97 kg/m as calculated from the following: Height as of 04/05/25: 5' 4 . Weight as of this encounter: 168 lb 12.8 oz. BP: 118/60 Patient's last menstrual period was 01/07/2025. Assessment/Plan ICD-10-CM 1. Third trimester ([facility]) Z34.93 2. 32 weeks gestation of ([facility]) Z3A.32 POCT urinalysis dipstick manually resulted [...] week for routine OB appointment. Documented by Leonora Olmstead NP on behalf of: Leonora Olmstead NP documented in this encounterJohn J. Pershing VA Medical CenterAvnzwrddfe35-70-6746 History of Present illness Narrative* SPIKE Guzman - 08/11/2025 3:00 PM EDT Reason for Appointment: Patient ID: Veronica Ayala is a 19 y.o. female who [...] Size of fetus inconsistent with dates, antepartum ([facility]) 08/10/2025 Resolved Ambulatory Problems Diagnosis [...] ASSESSMENT & PLAN ICD-10-CM 1. Third trimester ([facility]) Z34.93 POCT urinalysis dipstick manually resulted 2. 30 weeks gestation of ([facility]) Z3A.30 Return OB: Patient presents today [...] surgical history on file. documented in this encounterJohn J. Pershing VA Medical CenterBdnhkmpnkm81-80-0498 History of Present illness Narrative* Leonora Olmstead NP - 07/27/2025 1:50 PM EDT Reason for Appointment: Patient ID: Veronica Ayala is a 19 y.o. female who [...] nursing note reviewed. Exam conducted with a hydraulic dredge operator present. Vitals: Estimated body mass index is 28.84 kg/m as calculated from the following: Height as of 04/05/25: 5' 4 . Weight as of this encounter: 168 lb. BP: 112/70 Patient's last menstrual period was 01/07/2025. ASSESSMENT & PLAN ICD-10-CM 1. Anemia, unspecified type D64.9 iron polysaccharides (ProFe) 391.3 (180 Fe) MG capsule 2. 28 weeks gestation of ([facility]) Z3A.28 POCT urinalysis dipstick manually resulted 3. Third trimester ([facility]) Z34.93 4. Elevated glucose tolerance test [...] week for routine OB appointment. Documented by Leonora Olmstead NP on behalf of: Leonora Olmstead NP documented in this encounterJohn J. Pershing VA Medical [id number] History of Present illness Narrative* Leonora Olmstead NP - 07/13/2025 3:20 PM EDT Reason for Appointment: Patient ID: Veronica Ayala is a 19 y.o. female who [...] nursing note reviewed. Exam conducted with a hydraulic dredge operator present. Vitals: Estimated body mass index is 28.69 kg/m as calculated from the following: Height as of 04/05/25: 5' 4 . Weight as of this encounter: 167 lb 1.9 oz. BP: 120/68 Patient's last menstrual period was 01/07/2025. ASSESSMENT & PLAN ICD-10-CM 1. Cystitis N30.90 nitrofurantoin, macrocrystal-monohydrate, (Macrobid) 100 MG capsule Urine culture 2. 26 weeks gestation of ([facility]) Z3A.26 POCT urinalysis dipstick manually resulted 3. Second trimester ([facility]) Z34.92 POCT urinalysis dipstick manually resulted OB follow up transabdominal approach 4. Gastroesophageal reflux in ([facility]) O99.619 omeprazole (PriLOSEC) [address] [...] week for routine OB appointment. Documented by Leonora Olmstead NP on behalf of: Alex Antunez DO documented in this encounterJohn J. Pershing VA Medical [id number] History of Present illness Narrative* SPIKE Guzman - 06/15/2025 1:50 PM EDT Reason for Appointment: Patient ID: Veronica Ayala is a 19 y.o. female who [...] PLAN ICD-10-CM 1. 22 weeks gestation of ([facility]) Z3A.22 POCT urinalysis dipstick manually resulted 2. Second trimester ([facility]) Z34.92 POCT urinalysis dipstick manually resulted 3. [...] Documented by SPIKE Guzman on behalf of: Alex Antunez DO documented in this encounterJohn J. Pershing VA Medical [id number] History of Present illness Narrative* SPIKE Guzman - 05/18/2025 3:30 PM EDT Reason for Appointment: Patient ID: Veronica Ayala is a 19 y.o. female who [...] ICD-10-CM 1. Screening, , for anatomic survey ([facility]) Z36.89 US OB 14+ weeks anatomy scan US OB 14+ weeks anatomy scan 2. STD exposure Z20.2 3. Vaginal discharge N89.8 SURESWAB(R) ADVANCED VAGINITIS PLUS, TMA CHLAMYDIA TRACHOMATIS (GENITO/STI) Neisseria gonorrhea DNA probe, direct 4. Second trimester ([facility]) Z34.92 5. 18 weeks gestation of ([facility]) Z3A.18 POCT urinalysis dipstick manually resulted [...] behalf of: SPIKE Guzman documented in this encounterJohn J. Pershing VA Medical [id number] History of Present illness Narrative* Alex Antunez - 04/06/2025 1:20 PM EDT Reason for Appointment: Patient ID: Veronica Ayala is a 19 y.o. female who [...] nursing note reviewed. Exam conducted with a hydraulic dredge operator present. Vitals: Estimated body mass index [...] by Adela Zamarripa LPN on behalf of: Alex Antunez DO documented in this encounterJohn J. Pershing VA Medical [id number] History of Present illness Narrative* Nicole Hernandes NP - 04/05/2025 11:00 AM EDT Images from the original note were not included. Subjective Patient ID: Veronica Ayala is a 19 y.o. female who [...] your allergy medication. You reported that the HAT BODY INSPECTOR said you could take zyrtec for your allergies. Continue on this medication. The medication should help with the fluid in the inner ear. No follow-ups on file. documented in this encounterJohn J. Pershing VA Medical [id number] History of Present illness Narrative* Heather Savage, EDUCATION NURSE - 03/10/2025 1:30 PM EDT Reason for Appointment: Patient ID: Veronica Ayala is a 19 y.o. 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) 12/30/2023 Exercise-induced asthma 12/30/2023 Patellofemoral syndrome of [...] by: Heather Savage LPN documented in this encounterJohn J. Pershing VA Medical [id number] History of Present illness Narrative* Adela Zamarripa LPN - 09/07/2024 1:20 PM EST Reason for Appointment: Patient ID: Veronica Ayala is a 19 y.o. 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) 12/30/2023 Exercise-induced asthma ([facility]) 12/30/2023 Patellofemoral syndrome of right knee 12/30/2023 [...] nursing note reviewed. Exam conducted with a hydraulic dredge operator present. Vitals: Estimated body mass index [...] by Adela Zamarripa LPN on behalf of: Alex Antunez DO documented in this encounterNOMS HealthcareEvaluation [...] single episode, 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) ([facility]) Otalgia of both ears documented in this encounter [facility]* Diagnosis First trimester state, incidental 12 weeks gestation of Urinary tract infection without hematuria, site unspecified Other iron deficiency anemia documented in this encounter [facility]* Diagnosis Screening, , for anatomic survey ([facility]) Encounter for anatomic survey STD exposure Vaginal discharge Leukorrhea, not specified as infective Second trimester ([facility]) state, incidental 18 weeks gestation of ([facility]) documented in this encounter [facility]* Diagnosis 22 weeks gestation of ([facility]) Second trimester ([facility]) state, incidental Diabetes mellitus screening Screening for diabetes mellitus documented in this encounter [facility]* Diagnosis Cystitis- Primary Unspecified cystitis 26 weeks gestation of ([facility]) Second trimester ([facility]) state, incidental Gastroesophageal reflux in ([facility]) documented in this encounter [facility]* Diagnosis Anemia, unspecified type- Primary 28 weeks gestation of ([facility]) Third trimester ([facility]) state, incidental Elevated glucose tolerance test Impaired glucose tolerance test documented in this encounter [facility]* Diagnosis Third trimester ([facility]) state, incidental 30 weeks gestation of ([facility]) documented in this encounter [facility]* Diagnosis Urinary tract infection without hematuria, site unspecified- Primary Third trimester ([facility]) state, incidental 32 weeks gestation of ([facility]) documented in this encounter [facility] Summary Purpose Family History No Family History Records FoundNo Family History Records Found Advance Directives No Advanced Directives Records FoundNo Advanced Directives Records Found Additional Source Comments INFORMATION SOURCE (unrecogn ized section and content) DATE CREATED AUTHOR 01/04/2022 [facility] DATE CREATED AUTHOR AUTHOR'S ORGANIZ GUERO 08/27/2025 [facility] EPIC Care Teams (unrecognized sec tion and content) Team MemberRelationshipSpecialtyStart DateEnd Date Tammy Marquis MD [address] [place] [address] PCP - [facility]03/04/23 Nicole Hernandes NP [address] [place] [address] [facility]07/27/24Te MemberRelationshipSpecialtyStart DateEnd Date Tammy Marquis MD [address] [place] [address] [facility]03/04/23 Nicole Hernandes, MANAGER STATISTICAL PROGRAMMING [address] [place] [address] [facility]07/27/24Te MemberRelationshipSpecialtyStart DateEnd Date Tammy Marquis MD [address] [place] [address] [facility]03/04/23Te MemberRelationshipSpecialtyStart DateEnd Date Tammy Marquis MD [address] [place] [address] PCP [facility]03/04/23 Nicole Hernandes, MANAGER STATISTICAL PROGRAMMING [address] [place] [address] [facility]07/27/24Te MemberRelationshipSpecialtyStart DateEnd Date Tammy Marquis MD [address] [place] [address] PCP [facility]03/04/23 Nicole Hernandes, MANAGER STATISTICAL PROGRAMMING [address] [place] [address] [facility]07/27/24Te MemberRelationshipSpecialtyStart DateEnd Date Tammy Marquis MD [address] [place] [address] [facility]03/04/23 Nicole Hernandes, MANAGER STATISTICAL PROGRAMMING [address] [place] [address] [facility]07/27/24Te MemberRelationshipSpecialtyStart DateEnd Date Tammy Marquis MD [address] [place] [address] [facility]03/04/23 Nicole Hernandes, MANAGER STATISTICAL PROGRAMMING [address] [place] [address] [facility]07/27/24Te MemberRelationshipSpecialtyStart DateEnd Date Tammy Marquis MD [address] [place] [address] [facility]03/04/23 Nicole Hernandes, MANAGER STATISTICAL PROGRAMMING [address] [place] [address] [facility]07/27/24Te MemberRelationshipSpecialtyStart DateEnd Date Tammy Marquis MD [address] [place] [address] PCP - GeneralFamily Medicine03/04/23 Nicole Hernandes, MANAGER STATISTICAL PROGRAMMING [address] [place] [address] PCP - [facility]07/27/24Team MemberRelationshipSpecialtyStart DateEnd Date Tammy Marquis MD [address] [place] [address] PCP - GeneralFamily Medicine03/04/23Team MemberRelationshipSpecialtyStart DateEnd Date Tammy Marquis MD [address] [place] [address] PCP - GeneralFamily Medicine03/04/23Team MemberRelationshipSpecialtyStart DateEnd Date Tammy Marquis MD [address] [place] [address] PCP - GeneralFamily Medicine03/04/23Team MemberRelationshipSpecialtyStart DateEnd Date Tammy Marquis MD [address] [place] [address] PCP - GeneralFamily Medicine03/04/23Team MemberRelationshipSpecialtyStart DateEnd Date Tammy Marquis MD [address] [place] [address] PCP - GeneralFamily Medicine03/04/23Team MemberRelationshipSpecialtyStart DateEnd Date Tammy Marquis MD [address] [place] [address] PCP - GeneralFamily Medicine03/04/23Team MemberRelationshipSpecialtyStart DateEnd Date Tammy Marquis MD [address] [facility] [address] [place] [address] PCP - [facility]03/04/23Team MemberRelationshipSpecialtyStart DateEnd Date Tammy Marquis MD [address] [facility] [address] [place] [address] PCP - [facility]03/04/23Team MemberRelationshipSpecialtyStart DateEnd Date Tammy Marquis MD [address] [facility] [address] [place] [address] [facility] - [facility]03/04/23 Nicole Hernandes, MANAGER STATISTICAL PROGRAMMING [address] [facility] [address] [place] [address] PCP - [facility]//Team MemberRelationshipSpecialtyStart DateEnd Date Tammy Marquis MD [address] [facility] [address] [place] [address] PCP - [facility] Medicine03/04/23Team MemberRelationshipSpecialtyStart DateEnd Date Tammy Marquis MD [address] [facility] [address] [place] [address] PCP - [facility]03/04/23Team MemberRelationshipSpecialtyStart DateEnd Date Tammy Marquis MD [address] [facility] [address] [place] [address] PCP - GeneralFamily Medicine03/04/23 Reason for Visit (unrecogniz ed section [...] BE BASED ON THE PRIMARY CLINICAL RECORDS. [facility], [facility]. provides no warranty or guarantee of the accuracy or completeness of information in this document.
--- OUTSIDE RECORDS SUMMARY | 2025-08-27 12:46 | XMS_ITS | Encounter Summary ---
Author Organization [facility] Address [address] [facility] [place] [address] Care Team Providers Care Purse Framer Name Role Phone Eliana Flanagan MD Primary Care Provider [phone] Encounter Details DateTypeDepartmentCare Team (Latest Contact Info)Hfsmvhkpesj00/31/2025linisync Result Encounter [facility] External Department Unsolicited Darlene Olmstead, THERAPIST'S ASSISTANT [address] [place] [address] Social History Tobacco UseTypesPacks/DayYears UsedDateSmoking Tobacco: NeverPassive Smoke Exposure: NeverSmokeless Tobacco: NeverAlcohol UseStandard Drinks/WeekComments Never0 (1 standard drink = 0.6 oz pure alcohol)PHQ-2AnswerDate RecordedPatient Health Questionnaire-2 Bdciv066Estimated Date of Delivery NidfbrljCio96/19/2025Based on last menstrual period of 01/07/2025Sex and Gender InformationValueDate RecordedSex Assigned at BirthNot on fileLegal SexFemale 01/08/2023 6:51 PM EDTGender IdentityNot on fileSexual OrientationNot on file documented as of this encounter Plan of Treatment DateTypeDepartmentCare Team (Latest Contact Info)Etfoauehaxp26/18/2025 9:20 AM ESTRoutine [facility] [address] [place] [address] Alex Antunez, [address] [place] [address] documented as of this encounter Procedures Procedure NamePriorityDate/TimeAssociated DiagnosisCommentsALL CBC WITH AUTO CSNGWxaadyl53/31/2025 10:57 AM EDT documented in this encounter Results * (ABNORMAL) ALL CBC WITH AUTO DIFF (08/26/2025 10:57 AM EDT)ComponentValueRef RangeTest MethodAnalysis TimePerformed AtPathologist SignatureTBH WBC7.54.0 - 11.0 10 3/uLTBHTBH RBC3.60(L)4.20 - 5.40 10 6/uLTBHTBH HGB9.4(L)12.0 - 16.0 g/dLTBHTBH HCT28.5(L)36.0 - 48.0 %TBHTBH MCV79.2(L)81.0 - 99.0 fLTBHTBH MCH 26.1(L)26.7 - 34.0 pgTBHTBH MCHC33.029.9 - 35.2 g/dLTBHTBH RDW13.611.0 - 15.0 %TBHTBH KTO616386 - 450 10 3/uLTBHTBH MPV11.19.5 - 13.5 fLTBHNEUTROPHILS PERCENT AUTO77.4(H)43.0 - 75.0 %TBHLYMPHOCYTES PERCENT AUTO13.7(L)20.5 - 60.0 %TBHMONOCYTES PERCENT AUTO7.31.7 - 12.0 %TBHTBH EO %0.90.9 - 7.0 %TBHBASOPHILS PERCENT AUTO0.30.2 - 2.0 %TBHIMMATURE GRANULOCYTES PCT AUTO0.40.0 - 0.5 %TBH NEUTROPHILS ABSOLUTE AUTO5.81.4 - 6.5 10 3/uLTBHLYMPHOCYTES ABSOLUTE AUTO1.0 (L)1.2 - 3.8 10 3/uLTBHMONOCYTES ABSOLUTE AUTO0.60.3 - 0.8 10 3/uLTBHTBH EO # 0.10.0 - 0.7 10 3/uLTBHBASOPHILS ABSOLUTE AUTO0.00.0 - 0.1 10 3/uLTBHIMMATURE GRANULOCYTES ABS AUTO0.030.00 - 0.03 10 3/uLTBHSpecimen (Source)Anatomical Location / LateralityCollection Method / VolumeCollection TimeReceived Time 08/26/2025 10:57 AM EDT1 10:59 AM EDT Narrative [facility] - 08/26/2025 11:05 AM EDT Authorizing ProviderResult TypeResult StatusKristina Ishan NPCLINISYNCFinal ResultPerforming OrganizationAddressCity/State/ZIP CodePhone Number [facility] documented in this encounter Visit Diagnoses Not on filedocumented in this encounter Care Teams Team MemberRelationshipSpecialtyStart DateEnd Date Eliana Flanagan MD [address] [address] PCP - GeneralFamily Medicine03/04/23documented as of this encounter
--- OUTSIDE RECORDS SUMMARY | 2025-08-27 12:46 | XMS_ITS | Encounter Summary ---
Author Organization [facility] Address [address] [facility] [place] [address] Care Team Providers Care Supervisor Anodizing Name Role Phone Eliana Flanagan MD Primary Care Provider [phone] Encounter Details DateTypeDepartmentCare Team (Latest Contact Info)Vacbcxpoozf59/24/2025linisync Result Encounter [facility] External Department Unsolicited Alex Antunez, DO [address] [place] [address] Social History Tobacco UseTypesPacks/DayYears UsedDateSmoking Tobacco: NeverPassive Smoke Exposure: NeverSmokeless Tobacco: NeverAlcohol UseStandard Drinks/WeekComments Never0 (1 standard drink = 0.6 oz pure alcohol)PHQ-2AnswerDate RecordedPatient Health Questionnaire-2 Huyac576Estimated Date of Delivery HdfvavxdUti50/19/2025Based on last menstrual period of 01/07/2025Sex and Gender InformationValueDate RecordedSex Assigned at BirthNot on fileLegal SexFemale 01/08/2023 6:51 PM EDTGender IdentityNot on fileSexual OrientationNot on file documented as of this encounter Plan of Treatment DateTypeDepartmentCare Team (Latest Contact Info)Olimciogoid72/18/2025 9:20 AM ESTRoutine [facility] [place] [facility] [address] [place] [address] Alex Antunez DO [address] [place] [address] documented as of this encounter Procedures Procedure NamePriorityDate/TimeAssociated DiagnosisCommentsURINE CULTURE, WVAUFMHOrzguxt04/24/2025 12:18 PM EDT TBH URINE MICROSCOPIC AQOTNajtarv06/24/2025 12:18 PM EDT [facility] UA (CLEAN/CATCH) BUILDING ANALYST/SUPERVISOR/MICRO IF IND.Gzjexux4708/19/2025 12:18 PM EDT documented in this encounter [...] ??O:CNSNSS Isolated TBHURINE CULTURE, ROUTINEPerformed at: - [facility] CenterTBHURINE CULTURE, [id number] [place], [place] [id number] CULTURE, ROUTINELab Director: Nate Don PhD, Phone: [phone] CULTURE, ROUTINE Organism: ??1.1 Antibiotic ? Interpretation [...] [facility] * (ABNORMAL) TB[facility] UA (CLEAN/CATCH) BUILDING ANALYST/SUPERVISOR/MICRO IF IND. (08/19/2025 12:18 PM EDT) ComponentValueRef [...] MemberRelationshipSpecialtyStart DateEnd Date Eliana Flanagan MD [address] [facility] [address] [place] [address] PCP - GeneralFamily Medicine03/04/23documented as of this encounter
--- OUTSIDE RECORDS SUMMARY | 2025-08-27 12:46 | XMS_ITS | Encounter Summary ---
Author Organization [facility] Address [address] [place] [address] Care Team Providers Care Squad Boss Name Role Phone Eliana Flanagan MD Primary Care Provider [phone] Encounter Details DateTypeDepartmentCare Team (Latest Contact Info)Xuelzxabjrn41/31/2025Telephone [facility] [place] [facility] [address] [place] [phone] Liliana Leahy MA [address] [place] [address] Social History Tobacco UseTypesPacks/DayYears UsedDateSmoking Tobacco: NeverPassive Smoke Exposure: NeverSmokeless Tobacco: NeverAlcohol UseStandard Drinks/WeekComments Never0 (1 standard drink = 0.6 oz pure alcohol)PHQ-2AnswerDate RecordedPatient Health Questionnaire-2 Utfnc708Estimated Date of Delivery BcepblbzSuw40/19/2025Based on last menstrual period of 01/07/2025Sex and Gender InformationValueDate RecordedSex Assigned at BirthNot on fileLegal SexFemale 01/08/2023 6:51 PM EDTGender IdentityNot on fileSexual OrientationNot on file documented as of this encounter Miscellaneous Notes * Telephone Encounter - Liliana Leahy MA - 08/26/2025 11:25 AM EDT Pt called she went to do her 3--hr testing and ended up throwing up the glucose drink and didn't finish it. Pt was only drawn for CBC and sent home. Pt wanted to know what other way can she have her glucose checked? I advised pt that we will send in an A1C to have drawn PVU. documented in this encounter Plan of Treatment DateTypeDepartmentCare Team (Latest Contact Info)Jftqndusalr51/18/2025 9:20 AM ESTRoutine [facility] [address] [place] [address] Alex Antunez DO [address] [facility] [place] [address] NameTypePriorityAssociated DiagnosesOrder ScheduleHemoglobin H6jPnwGcrssee Diabetes mellitus screening Expected: 08/26/2025 (Approximate), Expires: 08/26/2026documented as of this encounter Visit Diagnoses Diagnosis Diabetes mellitus screening Screening for diabetes mellitus documented in this encounter Care Teams Team MemberRelationshipSpecialtyStart DateEnd Date Eliana Flanagan MD [address] [facility] [address] [place] [address] PCP - GeneralFamily Medicine03/04/23documented as of this encounter
--- OUTSIDE RECORDS SUMMARY | 2025-08-27 12:46 | XMS_ITS | Encounter Summary ---
Author Organization [facility] Address [address] [facility] [place] [address] Care Team Providers Care Research Fellow Name Role Phone Eliana Marquis MD Primary Care Provider [phone] Nicole Hernandes SOLUTIONS DELIVERY CONSULTANT Unavailable [phone] Encounter Details DateTypeDepartmentCare Team (Latest Contact Info)Zlltadflien88/20/2024Clinisync Result Encounter [facility] External Department Unsolicited Provider, Generic External Data Social History Tobacco UseTypesPacks/DayYears UsedDateSmoking Tobacco: NeverPHQ-2AnswerDate RecordedPatient Health Questionnaire-2 [id number] Sex and Gender InformationValueDate RecordedSex Assigned at BirthNot on file Legal GneXhnemp07/15/2023 6:51 PM EDTGender IdentityNot on fileSexual OrientationNot on filedocumented as of this encounter Functional Status * Over the past 2 weeks, how often have you been bothered by any of the following problems?QuestionAnswerDate of AssessmentAuthorLittle interest or pleasure in doing thingsNot at all04/05/2025 11:03 AM Homero NAVARRETEeling down, depressed, or hopelessNot at all04/05/2025 11:03 AM ALY NAVARRETE Patient Health Questionnaire-2 Rljhw512 11:03 AM ALY NAVARRETE documented as of this encounter Plan of Treatment DateTypeDepartmentCare Team (Latest Contact Info)Bkdpmdxusbx66/18/2025 9:20 AM ESTRoutine [facility] Deion AGUSTIN [address] [place] [address] [place] [address] Shania Antunez, DO [address] [facility] [place] [address] documented as of this encounter Procedures Procedure NamePriorityDate/TimeAssociated DiagnosisCommentsUS PELVIS W/ DWXAPDCUXBUD99/20/2024 10:02 PM EDT ALL LUTEINIZING THHUALNBnahvmc09/20/2024 2:04 PM EDT ALL FOLLICLE STIMULATING AABYNVYUyzzrsk75/20/2024 2:04 PM EDT ALL DHEA YRPPHLDTwdzeit77/20/2024 2:04 PM EDT ALL DZIUPVCXPJTIPQKRPYSGRCKzvgnvs08/20/2024 2:04 PM EDT ALL ANTI-MULLERIAN BTOUVGXIqjuujh40/20/2024 2:04 PM EDT documented in this encounter Results * US PELVIS W/ TRANSVAGINAL (06/15/2024 10:02 PM EDT)Anatomical RegionLaterality ModalityOtherSpecimen (Source)Anatomical Location / LateralityCollection Method / VolumeCollection TimeReceived Time06/15/2024 10:02 PM EDT Narrative 06/15/2024 10:04 PM EDT [facility] ?[address] ? [place] [address] ? Ultrasound Report ? Signed ? Patient: BLAS,DANETTE B ?MR#: [id number] ?? : 2005 ?Acct:[id number] ?? Age/Sex: 18 / F ?ADM Date: 06/15/24 ?? Loc: [facility] ? Attending Dr: Shania Antunez D.O. ? Ordering Physician: Shania Antunez D.O. ?? Date of Service: 06/15/24 ?? Procedure(s): US pelvis w/ transvaginal ?? Accession Number(s): [id number] ? cc: ELIANA MARQUIS ; Shania Antunez D.O. ? [facility] ? [address] ? [place] [address] ? Patient Name: ?? DANETTE B BLAS ? MRN: [facility]:[id number] ? date: 2005 ?Sex: F ?? Assigned Patient Location: [facility] ?? Current Patient Location: LAB ?? Accession/Order Number: [id number] ?? Exam Date: 06/15/2024 ??13:11 ?Report Date: [...] ?06/15/242203 ? DD/ 01 ? TD/TT: ? Cell Operation Supervisor: Procedure Note Radiology, Radiologist, MD - 06/15/2024 [place] [address] Ultrasound Report Signed Patient: DANETTE BLAS BMR#: [id number] : 2005Acct:[id number] Age/Sex: 18 / FADM Date: 06/15/24 Loc: [facility] Attending Dr: Shania Antunez D.O. Ordering Physician: Shania Antunez D.O. Date of Service: 06/15/24 Procedure(s): US pelvis w/ transvaginal Accession Number(s): [id number] cc: ELIANA MARQUIS ; Shania Antunez D.O. [place] [address] Patient Name: DANETTE BLAS MRN: [facility]:[id number] date: 2005 Sex: F Assigned Patient Location: [facility] Current Patient Location: LAB Accession/Order Number: [id number] Exam Date: 06/15/2024 13:11 Report Date: 06/15/2024 [...] Ly M.A. Signed By:06/15/242203 DD/ 01 TD/TT: Cell Operation Supervisor: Authorizing ProviderResult TypeResult StatusGeneric External Data Provider CLINISYNC IMAGINGFinal Result * ALL DEHYDROEPIANDROSTERONE (06/15/2024 2:04 PM EDT)ComponentValueRef RangeTest MethodAnalysis TimePerformed AtPathologist SignatureDHEA, NJEBO15587 - 491 ng/dLTBHComment: ? Age ?1 - [...] developed and its performance characteristics determined by [facility]. It has not been cleared or approved by the Food and Drug Administration. Performed at: ?? - Lab[address] ??[id number] Stator Connector: Eliud Rodriguez MD, Phone: ??[phone] Specimen (Source)Anatomical Location / LateralityCollection Method / Volume Collection TimeReceived Time06/15/2024 2:04 PM EDT06/15/2024 2:06 PM EDT Narrative CLINISYNC - 06/21/2024 5:08 PM EDT Authorizing ProviderResult TypeResult StatusCorey Tulio DOCLINISYNCFinal Result Performing OrganizationAddressCity/State/ZIP CodePhone Number [facility]INISYNC [facility] * ALL ANTI-MULLERIAN HORMONE (06/15/2024 2:04 PM EDT)ComponentValueRef RangeTest MethodAnalysis TimePerformed AtPathologist SignatureANTI-MULLERIAN HORMONE (AMH)2.79. ng/mLTBHComment: For assays employing antibodies, the possibility exists for interference by heterophile antibodies in the samples.1 1.Gracie Hernandez ??Interferences in Immunoassays - still a threat. Clin. Chem. 2000; 46: 4309-7514. This test was developed and its performance characteristics determined by [facility]. It has not been cleared or approved [...] exclude an AMH-secreting ovarian tumor. Performed at: ??[facility] [address] [place] [address] ??[id number] Stator Connector: Burke Mackey MD, Phone: ??[phone] Specimen (Source)Anatomical Location / LateralityCollection Method / [...] - 134.8 Performed at: ??[facility] [address], [place], [place] ??[id number] Stator Connector: Nate Don PhD, Phone: ??[phone] Specimen (Source)Anatomical Location / LateralityCollection Method / [...] Data Provider CLINISYNCFinal ResultPerforming OrganizationAddressCity/State/ZIP CodePhone Number [facility] * ALL DHEA SULFATE (06/15/2024 2:04 PM EDT)ComponentValueRef RangeTest Method Analysis TimePerformed AtPathologist SignatureDHEA-YVDGJVP813.0110.0 - 433.2 ug/dLTBHSpecimen (Source)Anatomical Location / LateralityCollection Method / VolumeCollection TimeReceived Time06/15/2024 2:04 PM EDT06/15/2024 2:06 PM EDT Narrative CLINISYNC - 06/16/2024 8:12 AM EDT Authorizing ProviderResult TypeResult StatusGeneric External Data Provider CLINISYNCFinal ResultPerforming OrganizationAddressCity/State/ZIP CodePhone Number [facility] documented in this encounter Visit Diagnoses Not on filedocumented in this encounter Care Teams Team MemberRelationshipSpecialtyStart DateEnd Date Eliana Marquis MD [address] [place] [address] [facility] - [facility]23 Nicole Hernandes NP [address] [place] [address] PCP - FFS State CPC10//documented as of this encounter
--- OUTSIDE RECORDS SUMMARY | 2025-08-27 12:47 | XMS_ITS | Encounter Summary ---
Author Organization [facility] Address [address] [place] [address] Care Team Providers Care Medical Sales Representative Name Role Phone Eliana Flanagan MD Primary Care Provider [phone] Encounter Details DateTypeDepartmentCare Team (Latest Contact Info)Dlcabtfdbew98/27/2025Telephone [facility] [address] [place] [address] [place] [address] Anuja Green LPN Social History Tobacco UseTypesPacks/DayYears UsedDateSmoking Tobacco: NeverPassive Smoke Exposure: NeverSmokeless Tobacco: NeverAlcohol UseStandard Drinks/WeekComments Never0 (1 standard drink = 0.6 oz pure alcohol)PHQ-2AnswerDate RecordedPatient Health Questionnaire-2 [id number] Date of Delivery YjvehnwyDzy14/19/2025Based on last menstrual period of 01/07/2025Sex and Gender InformationValueDate RecordedSex Assigned at BirthNot on fileLegal SexFemale 01/08/2023 6:51 PM EDTGender IdentityNot on fileSexual OrientationNot on file documented as of this encounter Miscellaneous Notes * Telephone Encounter - Anuja Green LPN - 08/22/2025 1:07 PM EDT 1:07 pm Bettina from [facility] called and voiced that patient did not even finish glucola for 3 hour gtt. The field seismologist did not draw an A1c either. Please advise if patient just needs to be given order at next appointment for O5h-nk-tpuugd be start testing. Please advise--Thanks--SS documented in this encounter Plan of Treatment DateTypeDepartmentCare Team (Latest Contact Info)Ubgiuplukyy06/18/2025 9:20 AM ESTRoutine [facility] [address] [facility] [place] [place] [phone] Alex Antunez DO [address] [facility] [place] [address] documented as of this encounter Visit Diagnoses Not on filedocumented in this encounter Care Teams Team MemberRelationshipSpecialtyStart DateEnd Date Eliana Flanagan MD [address] [facility] [address] [place] [address] PCP - GeneralFamily Medicine03/04/23documented as of this encounter
--- OUTSIDE RECORDS SUMMARY | 2025-08-27 12:47 | XMS_ITS | Encounter Summary ---
Author Organization [facility] Address [address] [facility] [address] Care Team Providers Care Environmental Engineering Technician Name Role Phone Eliana Flanagan MD Primary Care Provider [phone] Encounter Details DateTypeDepartmentCare Team (Latest Contact Info)Gedcjabhyhk56/30/2025amboo flowsheet [facility]OMK[facility]ley AGUSTIN [address] [facility] [place] [address] Munira Yu PA [address] [place], [facility] Social History Tobacco UseTypesPacks/DayYears UsedDateSmoking Tobacco: NeverPassive Smoke Exposure: NeverSmokeless Tobacco: NeverAlcohol UseStandard Drinks/WeekComments Never0 (1 standard drink = 0.6 oz pure alcohol)PHQ-2AnswerDate RecordedPatient Health Questionnaire-2 Bxwdz549Estimated Date of Delivery AtrqdvgjDvc09/19/2025Based on last menstrual period of 01/07/2025Sex and Gender InformationValueDate RecordedSex Assigned at BirthNot on fileLegal SexFemale 01/08/2023 6:51 PM EDTGender IdentityNot on fileSexual OrientationNot on file documented as of this encounter Plan of Treatment DateTypeDepartmentCare Team (Latest Contact Info)Ohiqnsuztrx06/18/2025 9:20 AM ESTRoutine [facility] Deion AGUSTIN [address] [facility] [place] [address] Alex Antunez DO [address] [facility] [place] [address] documented as of this encounter Visit Diagnoses Not on filedocumented in this encounter Care Teams Team MemberRelationshipSpecialtyStart DateEnd Date Eliana Flanagan MD [address] [facility] [address] [place] [address] PCP - GeneralFamily Medicine03/04/23documented as of this encounter
--- OUTSIDE RECORDS SUMMARY | 2025-08-27 12:47 | XMS_ITS | Patient Health Record ---
Author Organization [facility] Address [address] [place] [address] Care Team Providers Care Hr Analyst Name Role Phone Bethany Wells Primary Care Provider [phone] Dr. Adlofo Reagan Unavailable [phone] Reason For Referral No Information Plan Of Treatment No Information Insurance Providers Payer Name Payer Address Payer Phone Subscriber Number Group Number Insured Name Patient Relationship to Insured Coverage Start Date Coverage End Date [employer] [place] [employer] [address] [address] [place] [address] [id number] JUNIOR TREJO DANETTE Self - patient is the insured 3 Dental Wrap [facility] [address] [place] [id number], lf - patient is the czgpksc9511/27/2022zAnthem BC Medicaid-termed 11/26/22[address] [place] [id number] AYALA, lf - patient is the [id number] DQ [place]-termed 11/26/22[address] [place] [phone] [id number], lf - patient is the insured [facility] MEDICAID [facility] after [place]-termed 11/26/22[address] [place] [id number], AUTUMNSelf - patient is the [id number] [place] DQ Terminated 10/26/24 [address] [place] [id number] AYALA, Roland - patient is the [id number] Wrap [employer] [place] BCBS Termed [address] [place] [phone] [id number], AUTUMNSelf - patient is the mcdviod0911/27/2022 09/25/2023
--- OUTSIDE RECORDS SUMMARY | 2025-08-27 12:47 | XMS_ITS | Encounter Summary ---
Author Organization [facility] Address [address] [facility] [address] Care Team Providers Care Logistics Planning Manager Name Role Phone Eliana Flanagan MD Primary Care Provider [phone] Encounter Details DateTypeDepartmentCare Team (Latest Contact Info)Ofpipkvetti07/27/2025linisync Result Encounter [facility] External Department Unsolicited Alex Antunez, DO [address] [place] [address] Social History Tobacco UseTypesPacks/DayYears UsedDateSmoking Tobacco: NeverPassive Smoke Exposure: NeverSmokeless Tobacco: NeverAlcohol UseStandard Drinks/WeekComments Never0 (1 standard drink = 0.6 oz pure alcohol)PHQ-2AnswerDate RecordedPatient Health Questionnaire-2 Yizbx393Estimated Date of Delivery UczutyljGsm77/19/2025Based on last menstrual period of 01/07/2025Sex and Gender InformationValueDate RecordedSex Assigned at BirthNot on fileLegal SexFemale 01/08/2023 6:51 PM EDTGender IdentityNot on fileSexual OrientationNot on file documented as of this encounter Plan of Treatment DateTypeDepartmentCare Team (Latest Contact Info)Hktftomhwkz51/18/2025 9:20 AM ESTRoutine [facility] [place] [facility] [address] [facility] [place] [address] Alex Antunez DO [address] [place] [address] documented as of this encounter Procedures Procedure NamePriorityDate/TimeAssociated DiagnosisCommentsGLUCOSE TOLERANCE 3 MKOYRjhysvb83/27/2025 8:44 AM EDT documented in this encounter [...] encounter Care Teams Team MemberRelationshipSpecialtyStart DateEnd Date Elaina Flanagan MD [address] [place] [address] PCP - GeneralFamily Medicine03/04/23documented as of this encounter
== END 2025-08-27 12:44 | disposition home or self-care (01) ==
LOC: LAB 12:43
PROVIDERS: PCP Family Medicine; Visit Provider Nurse Practitioner Family
DX: Z13.1 Encounter for screening for diabetes mellitus (principal)
CPT/HCPCS: 36415; 83036

== ENCOUNTER 2025-09-07 09:46 | Outpatient (OUT) | payer OTHER, SELFPAY ==
--- OUTSIDE RECORDS SUMMARY | 2024-08-16 09:00 | XMS_ITS ---
Author Organization [facility] Address [address] [place] [address] Care Team Providers Care Medical Operations Supervisor Name Role Phone Bethany Wells Primary Care Provider Charlee Lawrence Unavailable [phone] REASON FOR VISIT 6 MONTHS Encounters Encounter Location Date Provider Diagnosis [facility] [address] [place] [address] 08/16/2024 Charlee Keithgamaliel Plan Of Treatment No Information Progress Notes * BDOB:11/2004 (20 yo F)Acc No.[id number]:08/16/2024 Patient:?LUCY :?Charlee LawrenceDOB:2005???Age:18 Y???Sex: FemaleDate:08/16/2024hone:[phone]:SUDHEER YU [id number]:Bethany Guerrero Subjective: * Chief Complaints: * 6 MONTHS * Electronic signature of Charlee Lawrence on 09/07/2025 at 09:49 AM ESTSign off status: Pending * Provider: Dru Lawrence Date: Generated for Printing/Faxing/eTransmitting on:?09/07/2025 09:49 AM EST
--- OUTSIDE RECORDS SUMMARY | 2025-04-27 05:00 | XMS_ITS ---
Author Organization [facility] Address [address] [place] [address] Care Team Providers Care Retail Worker Name Role Phone Bethany Wells Primary Care Provider [phone] Dr. Adolfo Reagan [facility] [phone] REASON FOR VISIT JAW AND TOOTH PAIN Encounters Encounter Location Date Provider Diagnosis [facility] [address] [place] [address] 04/27/2025 Adolfo Reagan Plan Of Treatment No Information Progress Notes * BDOB:11/2004 (20 yo F)Acc No.[id number]:04/27/2025 Patient:?AYALA :Yelena Reagan DDSDOB:2005???Age:19 Y???Sex: FemaleDate:04/27/2025Phone:[phone]:SUDHEER YU [id number]:Bethany Guerrero Subjective: * Chief Complaints: * J AW AND TOOTH PAIN Billing Information: * Procedure Codes: * Electronic signature of Dr. Adolfo Reagan , [facility], [id number] on 09/07/2025 at 09:49 AM ESTSign off status: Pending * Provider: Parrish Reagan DDS Date: 0 04/27/2025 Generated for Printing/Faxing/eTransmitting on:?09/07/2025 09:49 AM EST
--- OUTSIDE RECORDS SUMMARY | 2025-05-10 05:00 | XMS_ITS ---
Author Organization [facility] Address [address] [place] [address] Care Team Providers Care Zigzagger Name Role Phone Bethany Wells Primary Care Provider [phone] Dr. Adolfo Reagan [facility] [phone] REASON FOR VISIT JAW AND TOOTH PAIN Encounters Encounter Location Date Provider Diagnosis [facility] [address] [place] [address] 05/10/2025 Adolfo Reagan Plan Of Treatment No Information Progress Notes * BDOB:11/2004 (20 yo F)Acc No.[id number]:05/10/2025 Patient:? :Yelena Reagan DDSDOB:2005???Age:19 Y???Sex: FemaleDate:05/10/2025Phone:[phone]:SUDHEER YU [id number]:Bethany Guerrero Subjective: * Chief Complaints: * J AW AND TOOTH PAIN * Electronic signature of Dr. Adolfo Reagan , [facility], [id number] on 09/07/2025 at 09:49 AM ESTSign off status: Pending * Provider: Parrish Reagan DDS Date: 0 05/10/2025 Generated for Printing/Faxing/eTransmitting on:?09/07/2025 09:49 AM EST
--- OUTSIDE RECORDS SUMMARY | 2025-07-27 12:50 | XMS_ITS | Encounter Summary ---
Author Organization [facility] Address [address] [facility] [place] [address] Care Team Providers Care C Software Engineer Name Role Phone Eliana Flanagan MD Primary Care Provider [phone] Reason for Visit * ReasonCommentsRoutine Visit Encounter Details DateTypeDepartmentCare Team (Latest Contact Info)Pafhhqxnqrg25/01/2025 1:50 PM EDTRoutine [facility] [address] [place] [address] Darlene Olmstead, RELAY MAN [address] [place] [address] Anemia, unspecified type (Primary Dx); 28 weeks gestation of ([facility]); Third trimester ([facility]); Elevated glucose tolerance test Social History Tobacco UseTypesPacks/DayYears UsedDateSmoking Tobacco: NeverPassive Smoke Exposure: NeverSmokeless Tobacco: NeverAlcohol UseStandard Drinks/WeekComments Never0 (1 standard drink = 0.6 oz pure alcohol)PHQ-2AnswerDate RecordedPatient Health Questionnaire-2 Yiwla133Estimated Date of Delivery VxqfelhhMpj96/19/2025Based on last menstrual period of 01/07/2025Sex and Gender InformationValueDate RecordedSex Assigned at BirthNot on fileLegal SexFemale 01/08/2023 6:51 PM EDTGender IdentityNot on fileSexual OrientationNot on file documented as of this encounter Last Filed Vital Signs Vital SignReadingTime TakenCommentsBlood Hgjsuqwo176/7010 1:59 PM EDT Pulse--Temperature--Respiratory Rate--Oxygen Saturation--Inhaled Oxygen Concentration--Wljgpc85.2 kg (168 lb)07/27/2025 1:59 PM EDTHeight--Body Mass Index28.8406 11:07 AM EDTdocumented in this encounter Progress Notes * Darlene Olmstead NP - 07/27/2025 1:50 PM EDT Reason for Appointment: Patient ID: Roopa is a 19 y.o. female who presents for Routine Visit Patient presents today for Return OB appointment. MEDICATIONS Current Outpatient Medications Medication Instructions diphenhydrAMINE (BENADRYL) 50 mg, Nightly PRN iron polysaccharides (PROFE) 391.3 mg, Oral, Daily omeprazole (PRILOSEC) 20 mg, Oral, Daily before [...] nursing note reviewed. Exam conducted with a complaint operator present. Vitals: Estimated body mass index is 28.84 kg/m?? as calculated from the following: Height as of 04/05/25: 5' 4 . Weight as of this encounter: 168 lb. BP: 112/70 Patient's last menstrual period was 01/07/2025. ASSESSMENT & PLAN ICD-10-CM 1. Anemia, unspecified type D64.9 iron polysaccharides (ProFe) 391.3 (180 Fe) MG capsule 2. 28 weeks gestation of ([facility]) Z3A.28 POCT urinalysis dipstick manually resulted 3. Third trimester ([facility]) Z34.93 4. Elevated glucose tolerance test R73.09 Glucose tolerance, 3 hours Glucose tolerance, 3 hours Return OB: Patient presents today for a routine obstetrics appointment. Patient is currently 28w5d . Patient states she is doing well but has complaints of being tired due to current . Patient has verbalizes frequent movement. labor precautions was discussed/given and patient was instructed to perform kick counts three times a day. Orders Placed This Encounter Procedures Glucose tolerance, 3 hours POCT urinalysis dipstick manually resulted Follow Up: Patient is to return to office in 2 week for routine OB appointment. Documented by Darlene Olmstead NP on behalf of: Darlene Olmstead NP documented in this encounter Plan of Treatment DateTypeDepartmentCare Team (Latest Contact Info)Wlxdnduftfv24/18/2025 9:20 AM ESTRoutine [facility] [address] [place] [phone] Alex Antunez DO [address] [place] [address] NameTypePriorityAssociated DiagnosesOrder ScheduleGlucose tolerance, 3 hoursLab Routine Elevated glucose tolerance test Expected: 07/27/2025 (Approximate), Expires: 07/27/2026documented as of this encounter Procedures Procedure NamePriorityDate/TimeAssociated DiagnosisCommentsPOCT URINALYSIS WFUQDQTVVgtgopl53/01/2025 2:06 PM EDT 28 weeks gestation of ([facility]) documented in this encounter Results * POCT urinalysis dipstick manually resulted (07/27/2025 2:06 PM EDT)Component ValueRef RangeTest MethodAnalysis TimePerformed AtPathologist SignatureColor, UAYellowClarity, UAClearGlucose, UANegativeNegative - 2000(110) ++++ mg/dL Bilirubin, UANegativeNegative - 4(70) +++ mg/dLKetones, UANegativeNegative - 160(16) ++++ mg/dLSpec Grav, UA1.0051 - 1.03Blood, UANegativeNegative - 50 Tarun/mcLpH, UA7.05 - 9Protein, UANegativeNegative - 2000(20) ++++ mg/dL Urobilinogen, UA2.00.2 - 12 mg/dLLeukocytes, UANegativeNegative - 500+++ Joelle/mcLNitrite, UANegativeNegative - PositiveSpecimen (Source)Anatomical Location / LateralityCollection Method / VolumeCollection TimeReceived Time Urine07/27/2025 2:06 PM EDT Narrative Authorizing ProviderResult TypeResult StatusKrbonny Olmstead NPPOINT OF CARE TEST ENTER/EDIT ORDERABLESFinal Result documented in this encounter Visit Diagnoses Diagnosis Anemia, unspecified type- Primary 28 weeks gestation of ([facility]) Third trimester ([facility]) state, incidental Elevated glucose tolerance test Impaired glucose tolerance test documented in this encounter Care Teams Team MemberRelationshipSpecialtyStart DateEnd Date Eliana Flanagan MD [address] [place] [address] PCP - GeneralFamily Medicine03/04/23documented as of this encounter
--- OUTSIDE RECORDS SUMMARY | 2025-08-25 14:20 | XMS_ITS | Encounter Summary ---
Author Organization [facility] Address [address] [facility] [place] [address] Care Team Providers Care Banquet Attendant Name Role Phone Eliana Flanagan MD Primary Care Provider [phone] Reason for Visit * ReasonCommentsRoutine Visit Encounter Details DateTypeDepartmentCare Team (Latest Contact Info)Rjvezozepxo05/30/2025 3:20 PM EDTRoutine [facility] [address] [place] [phone] Munira Yu PA [address] [place], [facility] Urinary tract infection without hematuria, site unspecified (Primary Dx); Third trimester ([facility]); 32 weeks gestation of ([facility]) Social History Tobacco UseTypesPacks/DayYears UsedDateSmoking Tobacco: NeverPassive Smoke Exposure: NeverSmokeless Tobacco: NeverAlcohol UseStandard Drinks/WeekComments Never0 (1 standard drink = 0.6 oz pure alcohol)PHQ-2AnswerDate RecordedPatient Health Questionnaire-2 Vbtrz336Estimated Date of Delivery MfdbzvpyEqx82/19/2025Based on last menstrual period of 01/07/2025Sex and Gender InformationValueDate RecordedSex Assigned at BirthNot on fileLegal SexFemale 01/08/2023 6:51 PM EDTGender IdentityNot on fileSexual OrientationNot on file documented as of this encounter Last Filed Vital Signs Vital SignReadingTime TakenCommentsBlood Igtoduwq647/6010/ 3:28 PM EDT Pulse--Temperature--Respiratory Rate--Oxygen Saturation--Inhaled Oxygen Concentration--Lbazxc96.6 kg (168 lb 12.8 oz)08/25/2025 3:28 PM EDTHeight--Body Mass Index28.9706 11:07 AM EDTdocumented in this encounter Progress Notes * Darlene Olmstead NP - 08/25/2025 3:20 PM EDT Reason for Appointment: Patient [...] Size of fetus inconsistent with dates, antepartum ([facility]) 08/10/2025 Resolved Ambulatory Problems Diagnosis Date [...] Review of Systems: Review of Systems Constitutional: Positive for fatigue. HENT: Negative. Eyes: Negative. Respiratory: Negative. Cardiovascular: Negative. Gastrointestinal: Positive for nausea and vomiting. Genitourinary: Positive for frequency and urgency. Musculoskeletal: Negative. Skin: Negative. Neurological: Negative. All other systems reviewed and are negative. Hematological: Negative. Endocrine: Negative. Allergic/Immunologic: Negative. OBJECTIVE Objective: Physical Exam Constitutional: Appearance: Normal appearance. She is well-developed. Comments: Pallor to skin tone, afebrile Cardiovascular: Rate and Rhythm: Normal rate and [...] nursing note reviewed. Exam conducted with a quirk sander present. Vitals: Estimated body mass index is 28.97 kg/m?? as calculated from the following: Height as of 04/05/25: 5' 4 . Weight as of this encounter: 168 lb 12.8 oz. BP: 118/60 Patient's last menstrual period was 01/07/2025. Assessment/Plan ICD-10-CM 1. Third trimester ([facility]) Z34.93 2. 32 weeks gestation of ([facility]) Z3A.32 POCT urinalysis dipstick manually resulted Return OB: Patient presents today for a routine obstetrics appointment. Patient is currently 32w6d . Patient states she is doing well but has complaints of being tired due to current . Patient has verbalizes frequent movement. labor precautions was discussed/given and patient was instructed to perform kick counts three times a day. Patient was seen in the Obstetrics department as she was not feeling well on 08/19. She completed monitoring an urinalysis was obtained and given continued symptoms Keflex was sent to pharmacy culture has noted growth observed and further testing is being completed. Orders Placed This Encounter Procedures CBC and differential POCT urinalysis dipstick manually resulted Follow Up: Patient is to return to office in 2 week for routine OB appointment. Documented by Darlene Olmstead NP on behalf of: Darlene Olmstead NP documented in this encounter Plan of Treatment DateTypeDepartmentCare Team (Latest Contact Info)Rtvkjrfblvo86/18/2025 9:20 AM ESTRoutine [facility] [address] [place] [phone] TulioAlex upton DO [address] [place] [address] NameTypePriorityAssociated DiagnosesOrder ScheduleCBC and differentialLabRoutine 32 weeks gestation of ([facility]) Ordered: 08/25/2025documented as of this encounter Procedures Procedure NamePriorityDate/TimeAssociated DiagnosisCommentsPOCT URINALYSIS TXZBLRJUUsegyle24/30/2025 3:40 PM EDT 32 weeks gestation of ([facility]) documented in this encounter Results * (ABNORMAL) POCT urinalysis dipstick manually resulted (08/25/2025 3:40 PM EDT) ComponentValueRef RangeTest MethodAnalysis TimePerformed AtPathologist SignatureColor, UAYellowClarity, UAClearGlucose, UANegativeNegative - 2000(110) ++++ mg/dLBilirubin, UANegativeNegative - 4(70) +++ mg/dLKetones, UA NegativeNegative - 160(16) ++++ mg/dLSpec Grav, UA1.0101 - 1.03Blood, UA NegativeNegative - 50 Tarun/mcLpH, UA6.05 - 9Protein, UATraceNegative - 1999(20) ++++ mg/dLUrobilinogen, UA2.00.2 - 12 mg/dLLeukocytes, UA1+Negative - 500+++ Joelle/mcLNitrite, UANegativeNegative - PositiveSpecimen (Source)Anatomical Location / LateralityCollection Method / VolumeCollection TimeReceived Time Urine08/25/2025 3:40 PM EDT Narrative Authorizing ProviderResult TypeResult StatusDarlene Olmstead NPPOINT OF CARE TEST ENTER/EDIT ORDERABLESFinal Result documented in this encounter Visit Diagnoses Diagnosis Urinary tract infection without hematuria, site unspecified- Primary Third trimester ([facility] state, incidental 32 weeks gestation of ([facility]) documented in this encounter Care Teams Team MemberRelationshipSpecialtyStart DateEnd Date Eliana Flanagan MD [address] [place] [address] PCP - GeneralFamily Medicine03/04/23documented as of this encounter
--- OUTSIDE RECORDS SUMMARY | 2025-09-07 09:49 | XMS_ITS | Clinical Summary ---
Author Organization [facility] Healthcare Address [address] [place] [address] Care Team Providers Care Ed Special Education Teacher Name Role Phone Eliana Flanagan MD Primary Care Provider [phone] Allergies Active AllergyReactionsCriticalityNoted WlcvQqjxovvkKamyrrppgusZohfsms04/12/2024 Medications MedicationSigDispense QuantityRefillsLast FilledStart DateEnd DateStatus MV-Min-Fe [...] mg) by mouth Daily 30 capsule Expired cephalexin (Keflex) 500 MG capsule Indications:Urinary tract infection without hematuria, site unspecifiedTake 1 capsule (500 mg) by mouth in the morning and 1 capsule (500 mg) in the evening and 1 capsule(500 mg) before bedtime. Do all this for 7 days. 21 capsule Expired Active Problems ProblemNoted DateDiagnosed DateSize of fetus inconsistent with dates, antepartum ([facility])08/10/2025PCOS (polycystic ovarian syndrome)09/07/2024urrent severe episode of major depressive disorder without psychotic features without prior wkrdyvj6512/30/2023Exercise-induced yeiyzi4412/30/2023atellofemoral syndrome of right knee12/30/2023Estimated Date of XfenccdrAivriywiKrc65/19/2025ased on last menstrual period of 01/07/2025 Encounters DateTypeDepartmentCare GbydCunspfteowp45/11/2025Telephone [facility] [address] [place] [address] Shani Hinds PA 08/27/2025linisync Result Encounter NOMS External Department Unsolicited Darlene [place], [place] 08/26/2025Telephone [facility] [address] [place] [address] Liliana Leahy PA 08/26/2025linisync Result Encounter NOMS External Department Unsolicited Darlene Olmstead, MARION 08/25/2025 3:20 PM EDTRoutine [facility] [address] [place] [address] Munira Yu PA Urinary tract infection without hematuria, site unspecified (Primary Dx); Third trimester ([facility]); 32 weeks gestation of ([facility])08/25/2025amboo flowsheet [facility] [address] [place] [address] Munira Yu PA 08/22/2025linisync Result Encounter NOMS External Department Unsolicited Alex Antunez, DO 08/22/2025Telephone [facility] [address] [place] [address] Anuja Green LPN 08/19/2025linisync Result Encounter NOMS External Department Unsolicited Alex Antunez, DO 08/11/2025 3:00 PM EDTRoutine [facility] [address] [place] [address] Munira Yu PA Third trimester ([facility]); 30 weeks gestation of ([facility])08/11/2025 2:30 PM EDTAncillary Procedure [facility] [address] [place] [address] Second trimester ([facility]); Cystitis; Size of fetus inconsistent with dates, antepartum ([facility])08/05/2025Patient Outreach [place] [address] [place] [address] Munira Degroot LPN 08/04/2025bstract [place] [address] [place] [address] Munira Degroot LPN 07/27/2025 1:50 PM EDTRoutine [facility] [place] [address] Darlene [place], MARION Anemia, unspecified type (Primary Dx); 28 weeks gestation of ([facility]); Third trimester ([facility]); Elevated glucose tolerance test5Bamboo flowsheet [facility] AGUSTIN [address] [place] [address] [place] [address] Darlene Olmstead, MARION 07/26/2025Telephone [facility]IN [address] [place] [address] [place] [address] Shani Hinds MA 5Clinisync Result Encounter NOMS External Department Unsolicited Provider, Generic External Data 07/13/2025 3:20 PM EDTRoutine [facility] [address] Alex Antunez DO Cystitis (Primary Dx); 26 weeks gestation of ([facility]); Second trimester ([facility]); Gastroesophageal reflux in ([facility]); Size of fetus inconsistent with dates, antepartum ([facility])07/13/2025amboo flowsheet [facility] OBJIMMIEN [address] [place] [address] Alex Antunez DO 06/15/2025 1:50 PM EDTRoutine [facility] [address] [place] [address] Alex Antunez DO 22 weeks gestation of ([facility]); Second trimester ([facility]); Diabetes mellitus yfrnqhzgy75/20/2025amboo flowsheet [facility] [address] [place] [address] Alex Antunez DO from Last 3 Months Family History RelationNameStatusCommentsFatherAliveMotherAlive Social History Tobacco UseTypesPacks/DayYears UsedDateSmoking Tobacco: NeverPassive Smoke Exposure: NeverSmokeless Tobacco: Never Tobacco Cessation:Counseling Given: Yes Alcohol UseStandard Drinks/WeekCommentsNever0 (1 standard drink = 0.6 oz pure alcohol)PHQ-2AnswerDate RecordedPatient Health Questionnaire-2 Hsclh756 Estimated Date of XojdalrdMxmwvqksXdo76/19/2025Based on last menstrual period of 01/07/2025Sex and Gender InformationValueDate RecordedSex Assigned at BirthNot on fileLegal LbxXqmdva28/15/2023 6:51 PM EDTGender IdentityNot on file Sexual OrientationNot on file Last Filed Vital Signs Vital SignReadingTime TakenCommentsBlood Nfqqthgm129/6010 3:28 PM EDT Lgcyr408604/05/2025 11:07 AM EDTTemperature--Respiratory Sdfo4681 11:07 AM EDTOxygen Mfhtholvfm01%04/05/2025 11:07 AM EDTInhaled Oxygen Concentration-- Efzhha28.6 kg (168 lb 12.8 oz)08/25/2025 3:28 PM KLGFqtuqr724.6 cm (5' 4 ) 04/05/2025 11:07 AM EDTBody Mass Index28.9706 11:07 AM EDT Plan of Treatment DateTypeDepartmentCare Team (Latest Contact Info)Zqgqishkfft36/18/2025 9:20 AM ESTRoutine [facility] [address] [place] [address] Tulio, Alex, DO [address] [facility] [place] [address] Health MaintenanceDue DateLast DoneCommentsPneumococcal Vaccine: Pediatrics (0 to 5 Years) and At-Risk Patients (6 to 64 Years) (1 of 2 - PCV)2023OVID- 19 Vaccine (1 - 2023- season)2025Influenza Vaccine (#1)2025 Procedures Procedure NamePriorityDate/TimeAssociated DiagnosisCommentsMLR HEMOGLOBIN A1C Nyotqlz1108/27/2025 12:50 PM EDT ALL CBC WITH AUTO UNJHIyjghbd45/31/2025 10:57 AM EDT POCT URINALYSIS OOTEWITVUwwjmet36/30/2025 3:40 PM EDT 32 weeks gestation of ([facility]) GLUCOSE TOLERANCE 3 CHUYDthogga28/27/2025 8:44 AM EDT URINE CULTURE, KNQPLWSLpmtjog69/24/2025 12:18 PM EDT [facility] URINE MICROSCOPIC UPNAWqxkukk20/24/2025 12:18 PM EDT [facility] UA (CLEAN/CATCH) MARINE ELECTRONICS TECHNICIAN/MICRO IF IND.Ofskstd6108/19/2025 12:18 PM EDT US OB FOLLOW UP TRANSABDOMINAL ONDXPGNXJlrhxsr46/17/2025 12:55 PM EDT Second trimester ([facility]) Cystitis Size of fetus inconsistent with dates, antepartum ([facility]) POCT URINALYSIS QBPJXNKFKagtuhx14/16/2025 3:21 PM EDT Third trimester ([facility]) POCT URINALYSIS MFJJYGHOQpsmyri23/01/2025 2:06 PM EDT 28 weeks gestation of ([facility]) GLUCOSE 1 GTGVBxxseus38/29/2025 1:17 PM EDT ALL CBC WITH AUTO XBGEZlyyihl11/29/2025 1:17 PM EDT URINARY TRACT INFECTION (HTRX)Jcnawvp4407/13/2025 4:23 PM EDT POCT URINALYSIS YCKMTBAGOtbujbc36/17/2025 3:34 PM EDT 26 weeks gestation of ([facility]) Second trimester ([facility]) POCT URINALYSIS ACQBYBNKGjqbfto77/20/2025 1:59 PM EDT 22 weeks gestation of ([facility]) Second trimester ([facility]) from Last 3 Months Results * MLR HEMOGLOBIN A1C (08/27/2025 12:50 PM EDT)ComponentValueRef RangeTest Method Analysis TimePerformed AtPathologist SignatureGLYCOHEMOGLOBIN A1C4.94.5 - 6.2 %TBHComment: ADA RECOMMENDED LIMIT 4.0 - 6.0 ADA THERAPEUTIC TARGET < 7.0 ACTION SUGGESTED > 7.0 ESTIMATED AVERAGE QMZTTJY54gb/dLTBHSpecimen (Source)Anatomical Location / LateralityCollection Method / VolumeCollection TimeReceived Time08/27/2025 12:50 PM EDT110/27/2024 12:51 PM EDT Narrative [facility] - 08/27/2025 1:18 PM EDT Authorizing ProviderResult TypeResult StatusKristina Ishan NPCLINISYNCFinal ResultPerforming OrganizationAddressCity/State/ZIP CodePhone Number [facility] * (ABNORMAL) ALL CBC WITH AUTO DIFF [...] - 35.2 g/dLTBHTBH RDW13.611.0 - 15.0 %TBHTBH [id number] - 450 10 3/uLTBHTBH MPV11.19.5 - 13.5 [...] StatusDarlene Olmstead NPCLINISYNCFinal ResultPerforming OrganizationAddressCity/State/ZIP CodePhone Number [facility] * (ABNORMAL) POCT urinalysis dipstick manually resulted (08/25/2025 3:40 PM EDT) Only the most recent of5 resultswithin the time period is included. ComponentValueRef RangeTest MethodAnalysis TimePerformed AtPathologist Signature Color, UAYellowClarity, UAClearGlucose, UANegativeNegative - 1999(110) ++++ mg/dLBilirubin, UANegativeNegative - 4(70) +++ mg/dLKetones, UANegativeNegative - 160(16) ++++ mg/dLSpec Grav, UA1.0101 - 1.03Blood, UANegativeNegative - 50 Tarun/mcLpH, UA6.05 - 9Protein, UATraceNegative - 1999(20) ++++ mg/dLUrobilinogen, UA2.00.2 - 12 mg/dLLeukocytes, UA1+Negative - 500+++ Joelle/mcLNitrite, UANegative Negative - PositiveSpecimen (Source)Anatomical Location / LateralityCollection Method / VolumeCollection TimeReceived SkefNstuh17/30/2025 3:40 PM EDT Narrative Authorizing ProviderResult TypeResult [...] ROUTINE ??O:CNSNSS Isolated TBHURINE CULTURE, ROUTINEPerformed at: [facility]coSh[facility] HospitalTBHURINE CULTURE, [id number] [place], [place] [id number] CULTURE, ROUTINELab Director: Nate Don PhD, Phone: [phone] CULTURE, ROUTINE Organism: ??1.1 Antibiotic ? Interpretation [...] AM EDT Authorizing ProviderResult TypeResult StatusCorey Tulio DOL BLOOD ORDERABLES Final ResultPerforming OrganizationAddressCity/State/ZIP CodePhone Number [...] 12:18 PM EDT1 1:24 PM EDT Narrative [facility] - 08/19/2025 1:32 PM EDT Authorizing ProviderResult TypeResult StatusCorey Tulio DOCLINISYNCFinal Result Performing OrganizationAddressCity/State/ZIP CodePhone Number [facility] * (ABNORMAL) [facility] UA (CLEAN/CATCH) MARINE ELECTRONICS TECHNICIAN/MICRO IF IND. (08/19/2025 12:18 PM EDT) ComponentValueRef RangeTest MethodAnalysis TimePerformed AtPathologist SignatureCOLOR URINELT. YELLOWYELLOWTBHCLARITY URINECLEARCLEARTBHSPECIFIC GRAVITY URINE1.0101.005 - 1.025TBHPH URINE7.05.0 - 9.0TBHPROTEIN URINENEGATIVE NEG/TRACE mg/dLTBHGLUCOSE URINE UANEGATIVENEGATIVE mg/dLTBHBILIRUBIN URINE NEGATIVENEGATIVETBHKETONES URINENEGATIVENEGATIVE mg/dLTBHBLOOD URINENEGATIVE NEGATIVETBHNITRITE URINENEGATIVENEGATIVETBHUROBILINOGEN URINE0.20.2 - 1.0 EU/dLTBHLEUKOCYTE ESTERASE URINESMALL(A)NEGATIVETBHURINE MICROSCOPIC INDICATED YESTBHSpecimen (Source)Anatomical Location / LateralityCollection Method / VolumeCollection TimeReceived Time08/19/2025 12:18 PM EDT1 1:24 PM EDT Narrative [facility] - 08/19/2025 1:32 PM EDT Authorizing ProviderResult TypeResult StatusCorey Tulio DOCLINISYNCFinal Result Performing OrganizationAddressCity/State/ZIP CodePhone Number [facility] * US OB follow up transabdominal approach [...] EDT)ComponentValueRef RangeTest MethodAnalysis TimePerformed AtPathologist SignatureGLUCOSE 1 WOZH486(H)<130 mg/dLTBHSpecimen (Source)Anatomical Location / LateralityCollection Method / VolumeCollection TimeReceived Time07/25/2025 1:17 PM EDT07/25/2025 1:19 PM EDT Narrative [facility] - 07/25/2025 1:47 PM EDT Authorizing ProviderResult TypeResult StatusAlex SABILLON BLOOD ORDERABLES Final ResultPerforming OrganizationAddressCity/State/ZIP CodePhone Number [facility] * URINARY TRACT INFECTION (HTRX) (07/13/2025 4:23 PM EDT)ComponentValueRef Range Test MethodAnalysis TimePerformed AtPathologist SignatureACINETOBACTER QLACWEZM237.961 - 24.689 ppm07/15/2025 7:29 AM EDTHealthTrackRx at [facility] ACINETOBACTER BAUMANIINot Rsiedqil50.961 - 24.689 ppm07/15/2025 7:29 AM EDT [facility] at LabPortCITROBACTER ONQIMRDV436.000 - 32.015 ppm07/15/2025 7:29 AM EDTHealthTrackRx at LabPortCITROBACTER FREUNDIINot Qyjlyopv86.000 - 32.015 ppm07/15/2025 7:29 AM EDTHealthTrackRx at LabPortENTEROBACTER AEROGENES, QFNIYYC236.000 - 32.290 ppm07/15/2025 7:29 AM EDTHealthTrackRx at LabPortENTEROBACTER AEROGENES, CLOACAENot Aggkfqdq14.000 - 32.290 ppm 07/15/2025 7:29 AM EDTHealthTrackRx at LabPortENTEROCOCCUS FAECALIS, FAECIUM0 26.000 - 33.043 ppm07/15/2025 7:29 AM EDTHealthTrackRx at LabPortENTEROCOCCUS FAECALIS, FAECIUMNot Tgzkvuyq70.000 - 33.043 ppm07/15/2025 7:29 AM EDT [facility] at LabPortESCHERICHIA KIGE968.000 - 28.500 ppm07/15/2025 7:29 AM EDTHealthTrackRx at LabPortESCHERICHIA COLINot Ncxrxtbm67.000 - 28.500 ppm 07/15/2025 7:29 AM EDTHealthTrackRx at LabPortKLEBSIELLA PNEUMONIAE, OXYTOCA0 23.000 - 31.865 ppm07/15/2025 7:29 AM EDTHealthTrackRx at LabPortKLEBSIELLA PNEUMONIAE, OXYTOCANot Tdeixdlf68.000 - 31.865 ppm07/15/2025 7:29 AM EDT [facility] at LabPortMORGANELLA EXDRLUAG939.961 - 24.689 ppm07/15/2025 7:29 AM EDTHealthTrackRx at LabPortMORGANELLA MORGANIINot Hmknaaqh78.961 - 24.689 ppm09 7:29 AM EDTHealthTrackRx at LabPortPROTEUS MIRABILIS, VULGARIS0 23.000 - 28.500 ppm07/15/2025 7:29 AM EDTHealthTrackRx at LabPortPROTEUS MIRABILIS, VULGARISNot Solhxxgp57.000 - 28.500 ppm07/15/2025 7:29 AM EDT [facility] at LabPortPSEUDOMONAS PLVVHECAZM723.000 - 31.801 ppm07/15/2025 7:29 AM EDTHealthTrackRx at LabPortPSEUDOMONAS AERUGINOSANot Axjzupzh35.000 - 31.801 ppm07/15/2025 7:29 AM EDTHealthTrackRx at LabPortSTAPHYLOCOCCUS AUREUS0 26.000 - 31.595 ppm07/15/2025 7:29 AM EDTHealthTrackRx at [facility] STAPHYLOCOCCUS AUREUSNot Bawtdkgj40.000 - 31.595 ppm07/15/2025 7:29 AM EDT [facility] at LabPortSTREPTOCOCCUS AGALACTIAE (GROUP B STREP)026.000 - 32.435 ppm07/15/2025 7:29 AM EDTHealthTrackRx at LabPortSTREPTOCOCCUS AGALACTIAE (GROUP B STREP)Not Hlputcvw81.000 - 32.435 ppm07/15/2025 7:29 AM EDTHealthTrackRx at LabPortCANDIDA ALBICANS, PARAPSILOSIS, DCKQCVKDYT338.000 - 30.347 ppm07/15/2025 7:29 AM EDTHealthTrackRx at LabPortCANDIDA ALBICANS, PARAPSILOSIS, TROPICALISNot Qtwlrmju18.000 - 30.347 ppm07/15/2025 7:29 AM EDT [facility] LabPortCANDIDA BJRIGIWR849.000 - 31.618 ppm07/15/2025 7:29 AM EDTHealthTrackRx at LabPortCANDIDA GLABRATANot Bpagbnjm65.000 - 31.618 ppm 07/15/2025 7:29 AM EDTHealthTrackRx at LabPortCANDIDA WJTWHS489.000 - 30.873 ppm07/15/2025 7:29 AM EDTHealthTrackRx at LabPortCANDIDA KRUSEINot Detected 23.000 - 30.873 ppm07/15/2025 7:29 AM EDTHealthTrackRx at [facility] HealthcareSERRATIA REGIHPRGUW109.000 - 31.581 ppm07/15/2025 7:29 AM EDTHealthTrackRx at [facility] SERRATIA MARCESCENSNot Nihimitg17.000 - 31.581 ppm07/15/2025 7:29 AM EDT [facility] HealthcareSTREPTOCOCCUS PYOGENES (GROUP A STREP)019.961 - 24.689 ppm07/15/2025 7:29 AM EDTHealthTrackRx at [facility] HealthcareSTREPTOCOCCUS PYOGENES (GROUP A STREP)Not Ptugzbug66.961 - 24.689 ppm07/15/2025 7:29 AM EDTHealthTrackRx at [facility] HealthcareSTAPHYLOCOCCUS EPIDERMIDIS, HAEMOLYTICUS, LUGDUNENSIS, SAPROPHYTICUS (GGWEH517.961 - 24.689 ppm07/15/2025 7:29 AM EDTHealthTrackRx at [facility] STAPHYLOCOCCUS EPIDERMIDIS, HAEMOLYTICUS, LUGDUNENSIS, SAPROPHYTICUS (URINANot Yidrbymn61.961 - 24.689 ppm07/15/2025 7:29 AM EDTHealthTrackRx at [facility] STAPHYLOCOCCUS EPIDERMIDIS, HAEMOLYTICUS, LUGDUNENSIS, SAPROPHYTICUS (URINA0 19.961 - 24.689 ppm07/15/2025 7:29 AM EDTHealthTrack[facility] at [facility] STAPHYLOCOCCUS EPIDERMIDIS, HAEMOLYTICUS, LUGDUNENSIS, SAPROPHYTICUS (URINANot Pdcztevw60.961 - 24.689 ppm07/15/2025 7:29 AM EDTHealthTrackRx at [facility] Specimen (Source)Anatomical Location / LateralityCollection Method / Volume Collection TimeReceived JttiJltfn33/17/2025 4:23 PM EDT07/15/2025 1:30 AM EDT Narrative Authorizing ProviderResult TypeResult StatusDarlene Olmstead NPLAB BLOOD ORDERABLESFinal ResultPerforming OrganizationAddressCity/State/ZIP CodePhone Number [facility] [address] [address] from Last 3 Months Insurance Care Teams Team MemberRelationshipSpecialtyStart DateEnd Date Eliana Flanagan MD [address] [facility] [address] [place] [address] PCP - GeneralFamily Medicine03/04/23
--- OUTSIDE RECORDS SUMMARY | 2025-09-07 09:50 | XMS_ITS | Encounter Summary ---
Author Organization [facility] Address [address] [facility] [place] [address] Care Team Providers Care Paper Bag Inspector Name Role Phone Eliana Flanagan MD Primary Care Provider [phone] Encounter Details DateTypeDepartmentCare Team (Latest Contact Info)Azmcozcprms55/30/2025amboo flowsheet [facility] [address] [place] [address] Munira Yu PA [address] [place], [facility]11 Social History Tobacco UseTypesPacks/DayYears UsedDateSmoking Tobacco: NeverPassive Smoke Exposure: NeverSmokeless Tobacco: NeverAlcohol UseStandard Drinks/WeekComments Never0 (1 standard drink = 0.6 oz pure alcohol)PHQ-2AnswerDate RecordedPatient Health Questionnaire-2 Jtdqw332Estimated Date of Delivery WspvadydMcy65/19/2025Based on last menstrual period of 01/07/2025Sex and Gender InformationValueDate RecordedSex Assigned at BirthNot on fileLegal SexFemale 01/08/2023 6:51 PM EDTGender IdentityNot on fileSexual OrientationNot on file documented as of this encounter Plan of Treatment DateTypeDepartmentCare Team (Latest Contact Info)Bslndaoiucg46/18/2025 9:20 AM ESTRoutine [facility] [address] [place] [address] Alex Antunez DO [address] [facility] [address] [place] [address] documented as of this encounter Visit Diagnoses Not on filedocumented in this encounter Care Teams Team MemberRelationshipSpecialtyStart DateEnd Date Eliana Flanagan MD 112 [facility] [address] [place] [address] PCP - GeneralFamily Medicine03/04/23documented as of this encounter
--- OUTSIDE RECORDS SUMMARY | 2025-09-07 09:50 | XMS_ITS | Patient Health Record ---
Author Organization [facility] Address [address] [place] [address] Care Team Providers Care Wire Splicer Name Role Phone Bethany Wells Primary Care Provider Dr. Adolfo Reagan Unavailable [phone] Reason For Referral No Information Plan Of Treatment No Information Insurance Providers Payer Name Payer Address Payer Phone Subscriber Number Group Number Insured Name Patient Relationship to Insured Coverage Start Date Coverage End Date [employer] [place] [employer] [address] [address] [place] [address] [id number] JUNIOR TREJO DANETTE Self - patient is the insured [address] [facility] [address] [place] [id number], lf - patient is the sclsbsy3411/27/2022zAnthem BCBS Medicaid-termed 11/26/22[address] [place] [id number] AYALA, lf - patient is the qpsyzyu92zDENTAL DQ [place]-termed 11/26/22[address] [place] [phone] [id number], lf - patient is the insured [facility] MEDICAID [facility] after [place]-termed 11/26/22[address] [place] [id number], AUTUMNSelf - patient is the [id number] [place] DQ Terminated 10/26/24 [address] [place] [id number] AYALA, Roland - patient is the [id number] Wrap [employer] [place] BCBS Termed [address] [place] [phone] [id number], AUTUMNSelf - patient is the thlslar7111/27/2022 09/25/2023
--- OUTSIDE RECORDS SUMMARY | 2025-09-07 09:50 | XMS_ITS | Encounter Summary ---
Author Organization [facility] Address [address] [place] [address] Care Team Providers Care Mapper Name Role Phone Eliana Flanagan MD Primary Care Provider [phone] Encounter Details DateTypeDepartmentCare Team (Latest Contact Info)Tzxleavxtrb69/11/2025Telephone [facility] [address] [place] [address] [place] [address] Shani Hinds MA Social History Tobacco UseTypesPacks/DayYears UsedDateSmoking Tobacco: NeverPassive Smoke Exposure: NeverSmokeless Tobacco: NeverAlcohol UseStandard Drinks/WeekComments Never0 (1 standard drink = 0.6 oz pure alcohol)PHQ-2AnswerDate RecordedPatient Health Questionnaire-2 Rromr626Estimated Date of Delivery XmbzhavhSqa71/19/2025Based on last menstrual period of 01/07/2025Sex and Gender InformationValueDate RecordedSex Assigned at BirthNot on fileLegal SexFemale 01/08/2023 6:51 PM EDTGender IdentityNot on fileSexual OrientationNot on file documented as of this encounter Miscellaneous Notes * Telephone Encounter - Shani Hinds MA - 09/06/2025 9:09 AM EST Pt notified of results and recommendations. Pt already taking Pro FE. Pt to have labs drawn today and will send over order for iron transfusions once labs are back. documented in this encounter Plan of Treatment DateTypeDepartmentCare Team (Latest Contact Info)Sqiasvjqsst93/18/2025 9:20 AM ESTRoutine [facility] [address] [facility] [phone] Alex Antunez DO [address] [facility] [place] [address] NameTypePriorityAssociated DiagnosesOrder ScheduleFerritinLabRoutine Antepartum anemia ([facility]) Expected: 09/06/2025 (Approximate), Expires: 09/06/2026TransferrinLabRoutine Antepartum anemia ([facility]) Expected: 09/06/2025, Expires: 09/06/2026documented as of this encounter Visit Diagnoses Diagnosis Antepartum anemia ([facility]) documented in this encounter Care Teams Team MemberRelationshipSpecialtyStart DateEnd Date Eliana Flanagan MD 112 [facility] 110 [place] [address] PCP - GeneralFamily Medicine03/04/23documented as of this encounter
--- OUTSIDE RECORDS SUMMARY | 2025-09-07 09:50 | XMS_ITS | Encounter Summary ---
Author Organization [facility] Address [address] [facility] [address] Care Team Providers Care Survival Specialist Name Role Phone Eliana Flanagan MD Primary Care Provider [phone] Encounter Details DateTypeDepartmentCare Team (Latest Contact Info)Ksumpwxcydo73/01/2025linisync Result Encounter [facility] External [facility] Unsolicited Darlene Olmstead, CASINO GAMING WORKER [address] [place] [address] Social History Tobacco UseTypesPacks/DayYears UsedDateSmoking Tobacco: NeverPassive Smoke Exposure: NeverSmokeless Tobacco: NeverAlcohol UseStandard Drinks/WeekComments Never0 (1 standard drink = 0.6 oz pure alcohol)PHQ-2AnswerDate RecordedPatient Health Questionnaire-2 [id number] Date of Delivery WckwnzrcTws28/19/2025Based on last menstrual period of 01/07/2025Sex and Gender InformationValueDate RecordedSex Assigned at BirthNot on fileLegal SexFemale 01/08/2023 6:51 PM EDTGender IdentityNot on fileSexual OrientationNot on file documented as of this encounter Plan of Treatment DateTypeDepartmentCare Team (Latest Contact Info)Jewebfocurr65/18/2025 9:20 AM ESTRoutine [facility] [address] [facility] [place] [address] Alex Antunez, [address] [place] [address] documented as of this encounter Procedures Procedure NamePriorityDate/TimeAssociated DiagnosisCommentsMLR HEMOGLOBIN A1C Piblloq2608/27/2025 12:50 PM EDT documented in this encounter Results * MLR HEMOGLOBIN A1C (08/27/2025 12:50 PM EDT)ComponentValueRef RangeTest Method Analysis TimePerformed AtPathologist SignatureGLYCOHEMOGLOBIN A1C4.94.5 - 6.2 %TBHComment: ADA RECOMMENDED LIMIT 4.0 - 6.0 ADA THERAPEUTIC TARGET < 7.0 ACTION SUGGESTED > 7.0 ESTIMATED AVERAGE LYUNZQV38av/dLTBHSpecimen (Source)Anatomical Location / LateralityCollection Method / VolumeCollection TimeReceived Time08/27/2025 12:50 PM EDT110/27/2024 12:51 PM EDT Narrative [facility] - 08/27/2025 1:18 PM EDT Authorizing ProviderResult TypeResult StatusKristina Ishan NPCLINISYNCFinal ResultPerforming OrganizationAddressCity/State/ZIP CodePhone Number [facility] documented in this encounter Visit Diagnoses Not on filedocumented in this encounter Care Teams Team MemberRelationshipSpecialtyStart DateEnd Date Eliana Flanagan MD [address] [place] [address] PCP - GeneralFamily Medicine03/04/23documented as of this encounter
--- OUTSIDE RECORDS SUMMARY | 2025-09-07 09:50 | XMS_ITS | Encounter Summary ---
Author Organization [facility] Address [address] [facility] [place] [address] Care Team Providers Care Embroidery Patternmaker Name Role Phone Eliana Flanagan MD Primary Care Provider [phone] Encounter Details DateTypeDepartmentCare Team (Latest Contact Info)Niqmtpoigop70/31/2025linisync Result Encounter [facility] External Department Unsolicited Darlene Olmstead, SOCIAL SCIENCE INSTRUCTOR [address] [place] [address] Social History Tobacco UseTypesPacks/DayYears UsedDateSmoking Tobacco: NeverPassive Smoke Exposure: NeverSmokeless Tobacco: NeverAlcohol UseStandard Drinks/WeekComments Never0 (1 standard drink = 0.6 oz pure alcohol)PHQ-2AnswerDate RecordedPatient Health Questionnaire-2 [id number] Date of Delivery LohjwuxnTuv84/19/2025Based on last menstrual period of 01/07/2025Sex and Gender InformationValueDate RecordedSex Assigned at BirthNot on fileLegal SexFemale 01/08/2023 6:51 PM EDTGender IdentityNot on fileSexual OrientationNot on file documented as of this encounter Plan of Treatment DateTypeDepartmentCare Team (Latest Contact Info)Recqvbstjna98/18/2025 9:20 AM ESTRoutine [facility] [address] [place] [address] Alex Antunez, [address] [place] [address] documented as of this encounter Procedures Procedure NamePriorityDate/TimeAssociated DiagnosisCommentsALL CBC WITH AUTO FAEWSvqyyxw79/31/2025 10:57 AM EDT documented in this encounter Results * (ABNORMAL) ALL CBC WITH AUTO DIFF (08/26/2025 10:57 AM EDT)ComponentValueRef RangeTest MethodAnalysis TimePerformed AtPathologist SignatureTBH WBC7.54.0 - 11.0 10 3/uLTBHTBH RBC3.60(L)4.20 - 5.40 10 6/uLTBHTBH HGB9.4(L)12.0 - 16.0 g/dLTBHTBH HCT28.5(L)36.0 - 48.0 %TBHTBH MCV79.2(L)81.0 - 99.0 fLTBHTBH MCH 26.1(L)26.7 - 34.0 pgTBHTBH MCHC33.029.9 - 35.2 g/dLTBHTBH RDW13.611.0 - 15.0 %TBHTBH [id number] - 450 10 3/uLTBHTBH MPV11.19.5 - 13.5 [...] Ishan NPCLINISYNCFinal ResultPerforming OrganizationAddressCity/State/ZIP CodePhone Number [facility] documented in this encounter Visit Diagnoses Not on filedocumented in this encounter Care Teams Team MemberRelationshipSpecialtyStart DateEnd Date Eliana Flanagan MD [address] [address] PCP - GeneralFamily Medicine03/04/23documented as of this encounter
--- OUTSIDE RECORDS SUMMARY | 2025-09-07 09:50 | XMS_ITS | Encounter Summary ---
Author Organization [facility] Address [address] [place] [address] Care Team Providers Care Vp Mobile Products Name Role Phone Eliana Flanagan MD Primary Care Provider [phone] Encounter Details DateTypeDepartmentCare Team (Latest Contact Info)Uabkfgjywun14/31/2025Telephone [facility] [place] [facility] [address] [place] [phone] Liliana Leahy MA [address] [place] [address] Social History Tobacco UseTypesPacks/DayYears UsedDateSmoking Tobacco: NeverPassive Smoke Exposure: NeverSmokeless Tobacco: NeverAlcohol UseStandard Drinks/WeekComments Never0 (1 standard drink = 0.6 oz pure alcohol)PHQ-2AnswerDate RecordedPatient Health Questionnaire-2 [id number] Date of Delivery DqgkbhxmOve63/19/2025Based on last menstrual period of 01/07/2025Sex and [...] Plan of Treatment DateTypeDepartmentCare Team (Latest Contact Info)Vqemizvtgic52/18/2025 9:20 AM ESTRoutine [facility] [address] [address] Alex Antunez DO [address] [place] [address] NameTypePriorityAssociated DiagnosesOrder ScheduleHemoglobin H0uSilKxgfwtd Diabetes mellitus screening Expected: 08/26/2025 (Approximate), Expires: 08/26/2026documented as of this encounter Visit Diagnoses Diagnosis Diabetes mellitus screening Screening for diabetes mellitus documented in this encounter Care Teams Team MemberRelationshipSpecialtyStart DateEnd Date Eliana Flanagan MD [address] [facility] [address] [place] [address] PCP - GeneralFamily Medicine03/04/23documented as of this encounter
--- OUTSIDE RECORDS SUMMARY | 2025-09-07 10:06 | XMS_ITS | CCD ---
Author Organization [facility] Care Team Providers Care Carton Forming Machine Adjuster Name Role Phone BENITEZ, DR MUNOZ Primary Care Unavailable KIRBY ATKINSON Attending Unavailable DEMETRIO, KIRBY Admitting Unavailable AHDOOT, JONI Consulting Unavailable Michelle, Harsha Consulting Unavailable KIBRY ATKINSON Consulting Unavailable KRYSTA, DR BURDICK Consulting Unavailable KARGRETCHEN, DR BURDICK Attending Unavailable BENITEZ, DR MUNOZ Primary Care Unavailable KARIMANIK, DR BURDICK Admitting Unavailable WEST, DR KIAN Pablo Consulting Unavailable KARASIK, DR BURDICK Consulting Unavailable KARASIK, DR BURDICK Attending Unavailable BENITEZ, DR MUNOZ Primary Care Unavailable KARIMANIK, DR BURDICK Admitting Unavailable ZIEBER, DR MELVIN Olmedo Consulting Unavailable Eliana Marquis MD Primary Care Provider Cecilio MIXER AND BLENDER, Jose Antonio Neri Unavailable [phone] Cecilio MIXER AND BLENDER, Jose Antonio Neri Unavailable JOSE ANTONIO HERNANDES Attending Unavailable SHANIA ANTUNEZ Attending Unavailable MUNIRA GARCIA Attending Unavailable MUNIRA GARCIA Referring Unavailable SHANIA ANTUNEZ Attending Unavailable SHANIA ANTUNEZ Attending Unavailable SHANIA ANTUNEZ Attending Unavailable DARLENE OLMSTEAD Attending Unavailable DARLENE OLMSTEAD Referring Unavailable MUNIRA GARCIA Attending Unavailable MUNIRA GARCIA Attending Unavailable Allergies Allergy ClassificationReported Allergen(s)Allergy TypeDate of OnsetReaction(s) Facility (1 source)PenicillinsDrug allergy (disorder)89-69-3765[facility] (20 sources)PenicillinsDrug Mlikaks21-83-1988HfngjfbQXMD Healthcare Medications Current Medications MedicationDrug Class(es)DatesSig (Normalized)Sig (Original)[id number] 200 actuat albuterol 0.09 mg/actuat metered dose inhaler (9 sources)beta2-Adrenergic Agonist End: 20-99-1678ijpz 2 puff(s) by inhalation every four hours for wheezing albuterol HFA (ProAir HFA) 90 mcg/act inhaler Inhale 2 puffs every 4 (four) hours if needed for wheezing or shortness of breath 04/05/2025 Discontinued (Other)cephalexin 500 mg oral capsule (4 sources)Cephalosporin AntibacterialStart: 08-25-2025 End: 86-58-3899lhuu 1 capsule by mouth in the morning, [...] 09/01/2025 ActivediphenhydrAMINE hydrochloride 50 mg oral tablet (18 sources)Histamine-1 Receptor AntagonistdiphenhydrAMINE (BENADryl) 50 MG tablet Take 50 mg by mouth as needed at bedtime for itching Activefexofenadine hydrochloride 180 mg oral tablet (9 sources)Histamine-1 Receptor Antagonist End: 19-45-3082fwze 1 tablet by mouth once dailyfexofenadine ([facility] Allergy Relief) 180 MG tablet Take 180 mg by mouth Daily 04/05/2025 Discontinued (Other) magnesium oxide 400 mg oral tablet (5 sources)Start: 03-10-2025 End: 47-00-4851yddv 1 tablet by mouth once dailymagnesium oxide (Mag-Ox) 400 MG tablet Indications: headache in first trimester Take 1 tablet (400 mg) by mouth Daily 30 tablet 11 03/10/2025 04/05/2025 Discontinued (Other) nitrofurantoin, macrocrystals 25 mg / nitrofurantoin, monohydrate 75 mg oral capsule (5 sources)Nitrofuran AntibacterialStart: 07-13-2025 End: 82-35-6433qtik 1 capsule by mouth in the morningnitrofurantoin, macrocrystal-monohydrate, (Macrobid) 100 MG capsule Indications: Cystitis Take 1 capsule (100 mg) by mouth in the morning and 1 capsule (100 mg) before bedtime. Do all this for 7 days. 14 capsule 07/13/2025 07/20/2025 ActiveStart: 04-06-2025 End: 19-57-5699jxkq 1 capsule by mouth in the morningnitrofurantoin, macrocrystal-monohydrate, (Macrobid) 100 MG capsule Indications: Urinary tract infection without hematuria, site unspecified Take 1 capsule (100 mg) by mouth in the morning and 1 capsule (100 mg) before bedtime. Do all this for 7 days. 14 capsule 04/06/2025 04/13/2025 ActiveStart: 03-10-2025 End: 13-30-5858dpjp 1 capsule by mouth in the morningnitrofurantoin, macrocrystal-monohydrate, (Macrobid) 100 MG capsule Indications: UTI symptoms Take 1 capsule (100 mg) by mouth in the morning and 1 capsule (100 mg) before bedtime. Do all this for 7 days. 14 capsule 03/10/2025 03/17/2025 Active omeprazole 20 mg delayed release oral capsule (15 sources)Proton Pump InhibitorStart: 07-13-2025 End: 65-59-1470kzxl 1 capsule by mouth before mealtimeomeprazole (PriLOSEC) [address] capsule Indications: Gastroesophageal Reflux Disease , Heartburn Take 1 capsule (20 mg) by mouth in the morning. Take before meals. Do not crush or chew. 30 capsule 3 07/13/2025 Activeondansetron 4 mg disintegrating oral tablet (8 sources)Serotonin-3 Receptor AntagonistStart: 03-10-2025 End: 73-00-4002tmmm 1 tablet by mouth every six hours for nauseaondansetron ODT (Zofran-ODT) 4 MG disintegrating tablet Indications: Nausea and vomiting in Take 1 tablet (4 mg) by mouth every 6 (six) hours if needed for nausea or vomiting 30 tablet 2 03/10/2025 04/09/2025 Activepolysaccharide iron complex 391 mg oral capsule (12 sources)Start: 07-27-2025 End: 59-15-9695tvyv 1 capsule by mouth once dailyiron polysaccharides (ProFe) 391.3 (180 Fe) MG capsule Indications: Anemia, unspecified type Take 1capsule (391.3 mg) by mouth Daily 30 capsule 6 07/27/2025 08/26/2025 ActiveStart: 04-06-2025 End: 96-74-1283igjc 1 capsule by mouth once dailyiron polysaccharides (ProFe) 391.3 (180 Fe) MG capsule Indications: Other iron deficiency anemia Take 1 capsule (391.3 mg) by mouth Daily 30 capsule 6 04/06/2025 05/06/2025 Active MV-Min-Fe Fum-FA-DHA ( 1 PO) (18 sources) MV-Min-Fe Fum-FA-DHA ( 1 PO) Take 1 tablet by mouth Daily Active Completed/Discontinued Medications MedicationDrug Class(es)DatesSig (Normalized)Sig (Original)FLUoxetine 10 mg oral capsule (5 sources)Serotonin Reuptake InhibitorStart: 11-18-2022 End: 82-76-8024sgwz 1 capsule by mouth once dailyFLUoxetine (PROzac) 10 MG capsule Take 1 capsule by mouth 1 (one) time each day at the same time 03/10/2025 Discontinued (Other)fluticasone propionate 0.05 mg/actuat metered dose nasal spray (5 sources)Corticosteroid End: 48-63-8358jbvy 1 spray(s) nasal route once dailyfluticasone (Flonase) 50 MCG/ACT nasal spray Administer 1 spray into each nostril 1 (one) time eachday at the same time 03/10/2025 Discontinued (Other)24 hr metFORMIN hydrochloride 500 mg extended release oral tablet (5 sources)BiguanideStart: 06-07-2024 End: 78-14-9212ufvi 1 tablet by mouth every twenty-four hours at mealtime metFORMIN XR (Glucophage-XR) 500 MG 24 hr tablet Indications: PCOS (polycystic ovarian syndrome) Take 1 tablet (500 mg) by mouth in the evening. Take with meals Do not crush, chew, or split. 30 tablet 11 06/07/2024 03/10/2025 Discontinued (Other) Problems Problem ClassificationProblemDateDocumented DateEpisodic/ChronicAbdominal pain (10 sources)Pelvic and perineal pain; Translations: [Unspecified abdominal pain] Onset: 07-80-3991MjakvfmxSklvrs (20 sources)Exercise-induced asthma; Translations: [Exercise induced bronchospasm]Onset: 729526-73-8584NxlpuliOmsnazfuvx and other anemia (2 sources)Iron deficiency anemia; Translations: [Other iron deficiency anemias] 90-68-2415HsorieauAkkdzoqkwb and other anemia (2 sources)Anemia; Translations: [Anemia, unspecified]21-79-9602OibhuozxVielivie mellitus without complication (2 sources)Abnormal glucose tolerance test; Translations: [Other abnormal glucose]56-39-4333QvovokwdJjzypzrzo of teeth and jaw (2 sources)Jaw pain; Translations: [Jaw pain]79-84-8626HmpaeosaTqfymwkjzuali congenital anomalies (1 source)Bicornate uterus; 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]Onset: 10-18-2021 ChronicGenitourinary symptoms and ill-defined conditions (1 source)Urinary symptoms ; Translations: [Unspecified symptoms and signs involving the genitourinary system]44-15-5427VunoenabOdynbgvcfacfm and screening for infectious disease (2 sources)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; Translations: [Contact with and (suspected) exposure to infections with a predominantly sexual mode of transmission]26-24-6318WyvrdqfhZlokz disorders and dislocations; trauma-related (20 sources)Patellofemoral syndrome of right knee; Translations: [Patellofemoral disorders, right knee]Onset: 271319-86-3148DvtimvbXnxpzzvdh disorders (1 source)Missed period; Translations: [Irregular menstruation, unspecified] 44-09-4758EjmjeaeTqrx disorders (20 sources)Severe major depression, single episode, without psychotic features; Translations: [Major depressive disorder, single episode, severe without psychotic features]Onset: 880444-44-0771TppfwaoIdseb complications of (1 source)Vomiting of , unspecified; Translations: [Unspecified vomiting of , unspecified as to episode of care or not applicable] 92-38-8992EfzzltroKjlhx complications of (1 source)Headache; Translations: [Other specified related conditions, first trimester]35-14-9422CwyronroTucoj complications of (2 sources)Gastroesophageal reflux disease in ; Translations: [Diseases of the digestive system complicating , unspecified trimester] 05-59-4698BnmgscroXqbrf complications of (10 sources) size does not accord with dates; Translations: [Uterine size- date discrepancy, unspecified trimester]Onset: 854571-45-1635FbxrcrdeAhumi ear and sense organ disorders (2 sources)Bilateral earache; Translations: [Otalgia, bilateral]04-05-2025 EpisodicOther endocrine disorders (20 sources)Polycystic ovary syndrome; Translations: [Polycystic ovarian syndrome]Onset: 429368-07-6015HsgvmvoTbtha endocrine disorders (2 sources)Disorder of endocrine system; Translations: [Endocrine disorder, unspecified]68-38-8569ModyrjxhMtmyk female genital disorders (2 sources)Pain in female genitalia on intercourse; Translations: [Unspecified dyspareunia]87-20-7747VpxyrkbDazwz female genital disorders (2 sources)Vaginal discharge; Translations: [Other specified noninflammatory disorders of vagina]79-32-1490SrfyafrzCcugu and delivery including normal (16 sources); Translations: [Encounter for supervision of normal , unspecified, unspecified trimester]37-92-4118DcjzjrnmRicov screening for suspected conditions (not mental disorders or infectious disease) (4 sources)Patient encounter status; Translations: [Encounter for other specified screening]22-24-1788QevmeombYiebdzn cyst (5 sources)Unspecified ovarian cyst, left side; Translations: [UNSPECIFIED OVARIAN CYST LEFT SIDE]Onset: 05-89-0973OwxnmmcuWhsgeoso codes; unclassified (2 sources)Gestation period, 12 weeks; Translations: [12 weeks gestation of ]27-25-4257RpbbewcdIlaeyrgg codes; unclassified (2 sources)Gestation period, 18 weeks; Translations: [18 weeks gestation of ]93-94-9186VvptkfkqCmmdujvy codes; unclassified (2 sources)Gestation period, 22 weeks; Translations: [22 weeks gestation of ]96-68-5672RizfcmfuHzuogxqo codes; unclassified (2 sources)Gestation period, 26 weeks; Translations: [26 weeks gestation of ]85-78-2612WegmoewxLkjpkfwn codes; unclassified (2 sources)Gestation period, 28 weeks; Translations: [28 weeks gestation of ]95-73-2197OmsjwqdbYgkukuih codes; unclassified (2 sources)Gestation period, 30 weeks; Translations: [30 weeks gestation of ]42-06-1457TkujauhgZyutpeut codes; unclassified (2 sources)Gestation period, 32 weeks; Translations: [32 weeks gestation of ]49-91-1431RmeyyyhoAdjysfb tract infections (6 sources)Urinary tract infectious disease; Translations: [Urinary tract infection, site not specified]36-90-3162Rrpaajad Results Test NameValueInterpretationReference RangeFacilityMLR HEMOGLOBIN A1Con 31-42-9290Kyqrlmp [Mass/Vol]94 mg/dLNOBarton County Memorial HospitalXmeazsfctuMiO9f (Bld) [Mass fraction] 4.9 %4.5 - 6.2 %[facility]Pointe HospitalComment on above:ADA RECOMMENDED LIMIT 4.0 - 6.0 ADA THERAPEUTIC TARGET < 7.0 ACTION SUGGESTED > 7.0 CLINISYNCNOND HealthcareALL CBC WITH AUTO DIFFon 82-06-9003TKEKSNLXO ABSOLUTE AUTO0.0NOBarton County Memorial HospitalBasophils/100 WBC (Bld)0.3 %0.2 - 2.0 %[facility]OMSaint [facility] Eosinophils/100 WBC (Bld)0.9 %0.9 - 7.0 %[facility] HospitalErythrocyte distribution width (RBC) [Ratio]13.6 %11.0 - 15.0 %[facility] HospitalHematocrit (Bld) [Volume fraction]28.5 %Low36.0 - 48.0 %[facility] HospitalHemoglobin (Bld) [Mass/Vol]9.4 g/dLLow12.0 - 16.0 g/dLNOBarton County Memorial HospitalIMMATURE GRANULOCYTES ABS AUTO0.03NOBarton County Memorial HospitalImmature granulocytes/100 WBC (Bld)0.4 %0.0 - 0.5 %[facility] Interpretation and review of laboratory resultsAbnormalNOBarton County Memorial Hospital LYMPHOCYTES ABSOLUTE AUTO1.0LowNOBarton County Memorial HospitalLymphocytes/100 WBC (Bld)13.7 %Low 20.5 - 60.0 %[facility] HospitalMCH (RBC) [Entitic mass]26.1 pgLow26.7 - 34.0 pgNOOzarks Community HospitalHC (RBC) [Mass/Vol]33.0 g/dL29.9 - 35.2 g/dLNOND HealthcareMCV (RBC) [Entitic vol]79.2 fLLow81.0 - 99.0 fLNOND HealthcareMONOCYTES ABSOLUTE AUTO0.6 NOMS HealthcareMonocytes/100 WBC (Bld)7.3 %1.7 - 12.0 %[facility] Healthcare NEUTROPHILS ABSOLUTE AUTO5.8NOND HealthcareNeutrophils/100 WBC (Bld)77.4 %High 43.0 - 75.0 %NOM HealthcarePlatelet mean volume (Bld) [Entitic vol]11.1 fL9.5 - 13.5 fLNOND HealthcareTBH EO #0.1NOMS HealthcareTBH FLY061HNDD HealthcareTB RBC 3.60LowNOMS HealthcareTBH WBC7.5NOND HealthcareCLINISYNCNAMERICAN HOSPITAL ASSOCIATION Healthcare Urinalysis macro (dipstick) panel (U)on 98-18-7979Dukzhrmyq, UANegativeNegative - 4(70) +++ mg/dLNOMS HealthcareBlood, UANegativeNegative - 50 Tarun/mcLNOMS HealthcareClarity, UAClearNOMS HealthcareColor, UAYellowNOMS HealthcareGlucose, UANegativeNegative - 2000(110) ++++ mg/dLNOMS HealthcareInterpretation and review of laboratory resultsAbnormalNOMS HealthcareKetones, UANegativeNegative - 160(16) ++++ mg/dLNOMS HealthcareLeukocytes, UA1+Negative - 500+++ Joelle/mcLNOMS HealthcareNitrite, UANegativeNegative - PositiveNOMS HealthcarepH, UA6.05 - 9 NOMS HealthcareProtein, UATraceNegative - 2000(20) ++++ mg/dLNOMS HealthcareSpec Grav, UA1.0101 - 1.03NOMS HealthcareUrobilinogen, UA2.00.2 - 12 mg/dLNOMS HealthcareNOMS HealthcareGLUCOSE TOLERANCE 3 HOURon 77-69-7388ASYGMAM TOLERANCE 3 HOURmg/dLNOMS HealthcareComment on above:GLU FAST 75 (<95) Col: 08/22/25 0844 GLU 1HR () Col: 08/22/25 0928 GLU 2HR () Col: 08/22/25 1028 GLU 3HR () Col: 08/22/25 1128 CLINISYNCNOMS HealthcareTBH UA (CLEAN/CATCH) 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 IF IND.on 08-19-2025 BILIRUBIN URINENegativeNEGATIVENOMS HealthcareBLOOD URINENegativeNEGATIVENOMS HealthcareClarity (U)CLEARCLEARNOMS HealthcareColor (U)LT. YELLOWYELLOWNOMS HealthcareGLUCOSE URINE UANegativeNEGATIVE mg/dLNOND HealthcareInterpretation and review of laboratory resultsAbnormalNOMS HealthcareKetones Ql (U)Negative NEGATIVE mg/dLNOMS HealthcareLeukocyte esterase Test strip Ql (U)SMALLAbnormal NEGATIVENOMS HealthcareNITRITE URINENegativeNEGATIVENOMS HealthcarepH (U)7.0 [pH]5.0 - 9.0NOMS HealthcarePROTEIN URINENegativeNEG/TRACE mg/dLNOMS Healthcare SPECIFIC GRAVITY URINE1.0101.005 - 1.025NOMS HealthcareURINE MICROSCOPIC INDICATEDYESNOMS HealthcareUROBILINOGEN URINE0.2 EU/dL0.2 - 1.0 EU/dLNOMS HealthcareCLINISYNCNOMS HealthcareUS OB FOLLOW UP TRANSABDOMINAL APPROACHon 12-62-3478QK OB FOLLOW UP TRANSABDOMINAL APPROACHFINDINGS: Comparison May [...] Delivery: 10/14/25 Gestational Age as of 07/13/2025: 76p2jJfspjtfflk macro (dipstick) panel (U)on 12-13-6905Ybutqqgtf, UANegativeNegative - 4(70) +++ mg/dLNOMS HealthcareBlood, UANegativeNegative [...] mg/dLNOMS HealthcareNOMS HealthcareUrinalysis macro (dipstick) panel (U)on 97-56-2320Cascpchhe, UA NegativeNegative - 4(70) +++ mg/dLNOMS HealthcareBlood, UANegativeNegative - 50 Tarun/mcLNOMS HealthcareClarity, UAClearNOMS HealthcareColor, UAYellowNOMS HealthcareGlucose, UANegativeNegative - 1999(110) ++++ mg/dLNOMS Healthcare Interpretation and review of laboratory resultsNormalNOMS HealthcareKetones, UA NegativeNegative - 160(16) ++++ mg/dLNOMS HealthcareLeukocytes, UANegative Negative - 500+++ Joelle/mcLNOMS HealthcareNitrite, UANegativeNegative - Positive NOM HealthcarepH, UA75 - 9NOND HealthcareProtein, UANegativeNegative - 2000(20) ++++ mg/dLLOG[facility] HealthcareSpec Grav, UA1.0051 - 1.03NOND HealthcareUrobilinogen, UA2.00.2 - 12 mg/dLSaint Francis Medical Center HealthcareALL CBC WITH AUTO DIFFon 41-94-6997VKIQFXJIE ABSOLUTE ACON2KKVI HealthcareBasophils/100 WBC (Bld)0.3 %0.2 - 2.0 %[facility] HospitalEosinophils/100 WBC (Bld)1.3 %0.9 - 7.0 %[facility] Erythrocyte distribution width (RBC) [Ratio]14.3 %11.0 - 15.0 %[facility] Hematocrit (Bld) [Volume fraction]32 %Low36.0 - 48.0 %[facility] HospitalHemoglobin (Bld) [Mass/Vol]10.4 g/dLLow12.0 - 16.0 g/dLSouthPointe HospitalIMMATURE GRANULOCYTES ABS AUTO0.03NOBarton County Memorial HospitalImmature granulocytes/100 WBC (Bld)0.4 %0.0 - 0.5 % [facility] HospitalInterpretation and review of laboratory resultsAbnormalSouthPointe HospitalLYMPHOCYTES ABSOLUTE TZXR3LnvBDBGSaint Joseph Health CenterLymphocytes/100 WBC (Bld) 14 %Low20.5 - 60.0 %[facility] (RBC) [Entitic mass]26.2 pgLow26.7 - 34.0 pgMadison Medical CenterHC (RBC) [Mass/Vol]32.5 g/dL29.9 - 35.2 g/dLSouthPointe Hospital MCV (RBC) [Entitic vol]80.6 fLLow81.0 - 99.0 fLSouthPointe HospitalMONOCYTES ABSOLUTE AUTO0.3NOBarton County Memorial HospitalMonocytes/100 WBC (Bld)4 %1.7 - 12.0 %[facility] NEUTROPHILS ABSOLUTE AUTO5.7NOBarton County Memorial HospitalNeutrophils/100 WBC (Bld)80 %High43.0 - 75.0 %[facility] HospitalPlatelet mean volume (Bld) [Entitic vol]10.9 fL9.5 - 13.5 fLSouthPointe HospitalTB EO #0.1NOMS HealthcareTBH [id number] HealthcareTBH RBC3.97 LowNOMS HealthcareTBH WBC7.1NOMS HealthcareCLINISYNCNOMS HealthcareUrinalysis macro (dipstick) panel (U)on 75-17-6694Pzohtvvug, UANegativeNegative - 4(70) +++ mg/dLNOMS HealthcareBlood, UANegativeNegative - 50 Tarun/mcLNOMS Healthcare Clarity, UAClearNOMS HealthcareColor, UAAmberNOMS HealthcareGlucose, UANegative Negative - 1999(110) ++++ mg/dLNOMS HealthcareInterpretation and review of laboratory resultsAbnormalNOMS HealthcareKetones, UANegativeNegative - 160(16) ++++ mg/dLNOMS HealthcareLeukocytes, UAPositiveNegative - 500+++ Joelel/mcLNOMS HealthcareNitrite, UAPositiveNegative - PositiveNOMS HealthcarepH, UA6.55 - 9 NOMS HealthcareProtein, UAPositiveNegative - 1999(20) ++++ mg/dLNOMS Healthcare Spec Grav, UA1.0151 - 1.03NOMS HealthcareUrobilinogen, UA1.00.2 - 12 mg/dLNOMS HealthcareNOMS HealthcareUrinalysis macro (dipstick) panel (U)on 06-15-2025 Bilirubin, UANegativeNegative - 4(70) +++ mg/dLNOMS HealthcareBlood, UANegative Negative - 50 Tarun/mcLNOMS HealthcareClarity, UAClearNOMS HealthcareColor, UA YellowNOMS HealthcareGlucose, UANegativeNegative - 1999(110) ++++ mg/dLNOMS HealthcareInterpretation and review of laboratory resultsNormalNOMS Healthcare Ketones, UANegativeNegative - 160(16) ++++ mg/dLNOMS HealthcareLeukocytes, UA NegativeNegative - 500+++ Joelle/mcLNOMS HealthcareNitrite, UANegativeNegative - PositiveNOMS HealthcarepH, UA65 - 9NOMS HealthcareProtein, UANegativeNegative - 1999(20) ++++ mg/dLNOMS HealthcareSpec Grav, UA1.0151 - 1.03NOMS Healthcare Urobilinogen, UA1.00.2 - 12 mg/dLNOMS HealthcareNOMS HealthcareRECURRENT VAGINITIS (HTRX)on 78-15-5213BRJKTJCQH WDXQNFN5XWNK HealthcareATOPOBIUM VAGINAE Not detectedNOMS HealthcareBVAB 2,3 (BACTERIAL VAGINOSIS ASSOCIATED BACTERIA 2, 3); MOBILUNCUS SPP22.558AbnormalNOND HealthcareBVAB 2,3 (BACTERIAL VAGINOSIS ASSOCIATED BACTERIA 2, 3); MOBILUNCUS SPPDetectedAbnormalNOMS HealthcareCANDIDA ALBICANS, PARAPSILOSIS, SYCENBUMLV2XSDU HealthcareCANDIDA ALBICANS, PARAPSILOSIS, TROPICALISNot detectedNOMS HealthcareCANDIDA YKITYDXZ7RVKU HealthcareCANDIDA GLABRATANot detectedNOMS HealthcareCANDIDA UTMTKV7PVNS HealthcareCANDIDA KRUSEINot detectedNOMS HealthcareCHLAMYDIA DODVNXWQIDW9NNBR HealthcareCHLAMYDIA TRACHOMATISNot detectedNOMS HealthcareERMB, C; MEFA25.177 AbnormalNOMS HealthcareERMB, C; MEFADetectedAbnormalNOMS HealthcareGARDNERELLA GQKIVVIBW05.544AbnormalNOMS HealthcareGARDNERELLA VAGINALISDetectedAbnormalNOMS HealthcareInterpretation and review of laboratory resultsAbnormalNOMS Healthcare MEGASPHAERA (TYPES 1, 2)0NOMS HealthcareMEGASPHAERA (TYPES 1, 2)Not detectedNOMS HealthcareMYCOPLASMA YVJWROAQBW4KMCS HealthcareMYCOPLASMA GENITALIUMNot detected NOMS HealthcareNEISSERIA WPXKHHWYPKE9RUZR HealthcareNEISSERIA GONORRHOEAENot detectedNOMS HealthcareTET B, TET M21.747AbnormalNOMS HealthcareTET B, TET M DetectedAbnormalNOND HealthcareTRICHOMONAS IRFRCSJLV5SJKV HealthcareTRICHOMONAS VAGINALISNot detectedNOMS HealthcareNOND HealthcareUS OB 14+ WEEKS ANATOMY SCAN on 84-30-8295MN OB 14+ WEEKS ANATOMY SCANFINDINGS: A single, [...] Delivery: 10/14/25 Gestational Age as of 05/18/2025: 24k3mCnpakfejed macro (dipstick) panel (U)on 30-40-7265Rzhmrzvcq, UANegativeNegative - 4(70) +++ mg/dLNOMS HealthcareBlood, UANegativeNegative [...] HealthcareNOMS Healthcare Urinalysis macro (dipstick) panel (U)on 02-27-0628Hqgqqnsiz, UANegativeNegative - 4(70) +++ mg/dLNOMS HealthcareBlood, UAPositiveNegative - 50 Tarun/mcLNOMS HealthcareComment on above:traceClarity, UACloudyNOMS HealthcareColor, UAYellow NOMS HealthcareGlucose, UANegativeNegative - 1999(110) ++++ mg/dLNOMS Healthcare Interpretation and review of laboratory resultsAbnormalLOGAN REGIONAL [facility] HealthcareKetones, UANegativeNegative - 160(16) ++++ mg/dLSouthPointe HospitalLeukocytes, UATrace Negative - 500+++ Joelle/mcLNOBarton County Memorial HospitalNitrite, UAPositiveNegative - Positive [facility] HospitalComment on above:positivepH, UA7.55 - 9NOND HealthcareProtein, UA NegativeNegative - 2000(20) ++++ mg/dLLOGAN [facility] HealthcareSpec Grav, UA1.021 - 1.03 NOMSaint Mary'S Health CenterUrobilinogen, UA0.20.2 - 12 mg/dLUNC Health ALL CBC WITH AUTO DIFFon 45-78-2915UNVNMQMZL ABSOLUTE RGJG2QFUXSouthPointe Hospital Basophils/100 WBC (Bld)0.5 %0.2 - 2.0 %[facility] HospitalEosinophils/100 WBC (Bld) 2.5 %0.9 - 7.0 %[facility] HospitalErythrocyte distribution width (RBC) [Ratio]17.3 %High11.0 - 15.0 %[facility] HospitalHematocrit (Bld) [Volume fraction]32.1 %Low36.0 - 48.0 %[facility] HospitalHemoglobin (Bld) [Mass/Vol]10.4 g/dLLow12.0 - 16.0 g/dL [facility] HospitalIMMATURE GRANULOCYTES ABS AUTO0.01NOBarton County Memorial HospitalImmature granulocytes/100 WBC (Bld)0.1 %0.0 - 0.5 %[facility] HospitalInterpretation and review of laboratory resultsAbnormNazareth HospitalLYMPHOCYTES ABSOLUTE AUTO1.1 LowSouthPointe HospitalLymphocytes/100 WBC (Bld)14.4 %Low20.5 - 60.0 %[facility] MCH (RBC) [Entitic mass]23.8 pgLow26.7 - 34.0 pgNOBarton County Memorial HospitalMCHC (RBC) [Mass/Vol]32.4 g/dL29.9 - 35.2 g/dLSouthPointe HospitalMCV (RBC) [Entitic vol]73.5 fL Low81.0 - 99.0 fLSouthPointe HospitalMONOCYTES ABSOLUTE AUTO0.5NOBarton County Memorial Hospital Monocytes/100 WBC (Bld)7.1 %1.7 - 12.0 %NOMS HealthcareNEUTROPHILS ABSOLUTE AUTO 5.5NOMS HealthcareNeutrophils/100 WBC (Bld)75.4 %High43.0 - 75.0 %NOMS HealthcarePlatelet mean volume (Bld) [Entitic vol]11.1 fL9.5 - 13.5 fLNOMS HealthcareTBH EO #0.2NOMS HealthcareTBH [id number] HealthcareTBH RBC4.37NOMS HealthcareTBH WBC7.3NOMS HealthcareCLINISYNCNOMS HealthcareUS OB TRANSVAGINALon 65-48-3501YK OB TRANSVAGINALEXAM: US OB TRANSVAGINAL HISTORY: Dating. [...] II, MD, PHD at 11-Mar-2025 10:13:58 AM [facility]iologyNormalNot AvailableComment on above:Order Comment: US OB TRANSVAGINAL No LMP recorded.ALL DEHYDROEPIANDROSTERONEon 95-79-0257KIXZ, JEDTI117 ng/dL40 - 491 ng/dLNOND HealthcareComment on above:Age 1 - 5 years [...] developed and its performance characteristics determined by [facility]. It has not been cleared or approved by the Food and Drug Administration. Performed at: [address] [id number] Supervisor Facepiece Line: Eliud Rodriguez MD, Phone: [phone] [facility] HealthALL ANTI-MULLERIAN HORMONEon 81-84-3079VTNZ-MULLERIAN HORMONE ([facility])2.79 ng/mL.MCLEAN SOUTHEASTS HealthcareComment on above:For assays employing antibodies, the possibility exists for interference by heterophile antibodies in the samples.1 1.Gracie Coyle. Interferences in Immunoassays - still a threat. Clin. Chem. 2000; 46: 9507-9936. This test was developed and its performance characteristics determined by [employer]. It has not been cleared or approved [...] exclude an AMH-secreting ovarian tumor. Performed at: [employer] [address] [place] [id number] Supervisor Facepiece Line: Burke Mackey MD, Phone: [phone] [facility] HealthcareALL DHEA SULFATEon 35-15-0607VKHE-SJTKPLN399.0 ug/dL 110.0 - 433.2 ug/dLNOND HealthcareALL FOLLICLE STIMULATING HORMONEon 06-16-2024 FSH4.6. mIU/mLNOMS HealthcareComment on above:Adult Female Range Follicular phase 3.5 - 12.5 Ovulation phase 4.7 - 21.5 Luteal phase 1.7 - 7.7 Postmenopausal 25.8 - 134.8 Performed at: [facility] Lab[address] [id number] Supervisor Facepiece Line: Nate Don PhD, Phone: [phone] ALL LUTEINIZING HORMONEon 46-33-8650XTUDCHRXMYC HORMONE(LH)7.6. mIU/mLNOMS HealthcareComment on above:Adult Female Range Follicular phase 2.4 - 12.6 Ovulation phase 14.0 - 95.6 Luteal phase 1.0 - 11.4 Postmenopausal 7.7 - 58.5 No Panel Informationon 68-91-4679DOCCNSDXCKLWT HealthcareALL CBC WITH AUTO DIFF on 26-84-4241AOBPYRHAH ABSOLUTE AUTO0.0NOMS HealthcareBasophils/100 WBC (Bld)0.7 %0.2 - 2.0 %NOMS HealthcareEosinophils/100 WBC (Bld)2.3 %0.9 - 7.0 %NOMS HealthcareErythrocyte distribution width (RBC) [Ratio]15.6 %High11.0 - 15.0 % NOMS HealthcareHematocrit (Bld) [Volume fraction]34.8 %Low36.0 - 48.0 %NOM HealthcareHemoglobin (Bld) [Mass/Vol]10.9 g/dLLow12.0 - 16.0 g/dLNOBarton County Memorial Hospital IMMATURE GRANULOCYTES ABS AUTO0.01NOMS HealthcareImmature granulocytes/100 WBC (Bld)0.2 %0.0 - 0.5 %NOM HealthcareInterpretation and review of laboratory resultsAbnormalNOND HealthcareLYMPHOCYTES ABSOLUTE AUTO1.4[facility] Lymphocytes/100 WBC (Bld)23.6 %20.5 - 60.0 %NOMRipley County Memorial HospitalH (RBC) [Entitic mass]23.2 pgLow26.7 - 34.0 pgNOOzarks Community HospitalHC (RBC) [Mass/Vol]31.3 g/dL29.9 - 35.2 g/dLNOBarton County Memorial HospitalMCV (RBC) [Entitic vol]74.0 fLLow81.0 - 99.0 fLNOBarton County Memorial HospitalMONOCYTES ABSOLUTE AUTO0.5NOMS HealthcareMonocytes/100 WBC (Bld)7.8 % 1.7 - 12.0 %[facility] HealthcareNEUTROPHILS ABSOLUTE AUTO4.0[facility] Neutrophils/100 WBC (Bld)65.4 %43.0 - 75.0 %[facility] HealthcarePlatelet mean volume (Bld) [Entitic vol]10.3 fL9.5 - 13.5 fLNOMS [facility] EO #0.1NOMS [facility] [id number] [facility] RBC4.70NOMS [facility] WBC6.1NSaint [facility] CLINISYNCNOND HealthcareUS PELVIS W/ TRANSVAGINALon 32-89-2053[place] [address] Ultrasound Report Signed Patient: DANETTE AYALA MR#: [id number] : 2005 Acct:[id number] Age/Sex: 18 / F ADM Date: 06/15/24 [facility] Attending Dr: Shania Antunez D.O. Ordering Physician: Shania Antunez D.O. Date of Service: 06/15/24 Procedure(s): US pelvis w/ transvaginal Accession Number(s): [id number] cc: ELIANA MARQUIS ; Shania Antunez D.O. [facility] [place] [id number] Patient Name: DANETTE AYALA MRN: [id number] date: 2005 Sex: F Assigned Patient Location: [facility] Current Patient Location: LAB Accession/Order Number: [id number] Exam Date: 06/15/2024 13:11 Report Date: 06/15/2024 [...] M.A. Signed By: 06/15/242203 DD/ 01 TD/TT: Academic Department Chair:TBHRadiology, Radiologist, - 06/15/2024 [place] [address] Ultrasound Report Signed Patient: DANETTE AYALA MR#: [id number] : 2005 Acct:[id number] Age/Sex: 18 / F ADM Date: 06/15/24 Loc: [facility] Attending Dr: Shania Antunez D.O. Ordering Physician: Shania Antunez D.O. Date of Service: 06/15/24 Procedure(s): US pelvis w/ transvaginal Accession Number(s): [id number] cc: ELIANA MARQUIS ; Shania Antunez D.O. [facility] [place] [id number] Patient Name: DANETTE AYALA MRN: [id number] date: 2005 Sex: F Assigned [facility] Current Patient Location: LAB Accession/Order Number: [id number] Exam Date: 06/15/2024 13:11 Report Date: 06/15/2024 [...] M.A. Signed By: 06/15/242203 DD/ 01 TD/TT: Academic Department Chair: [facility] observation (narrative)[facility] HospitalUS PELVIS W/ TRANSVAGINALOrdered By: Radiologist Radiology on 51-43-4856LMIW [facility] Work Phone: US PELVIS AND TRANSVAGon 42-65-3514WF PELVIS AND TRANSVAGEXAMINATION: US PELVIS AND TRANSVAG [...] Electronically authenticated by: KIAN MONREAL Date: 2022-01-02 14:40[facility] PELVIS AND TRANSVAGon 01-78-2432BE PELVIS AND TRANSVAG EXAMINATION: US PELVIS AND [...] Electronically authenticated by: MELVIN ALONSO Date: 2021-10-12 15:53NormalThe [facility] AUTO DIFFon 04-64-2213QVWT #0.0 103/ulNormal0.0-0.1[facility] MiamisburgComment on above:Performed By: #### CBC #### [facility] [address] [place] [address] Cain KarenBasophils/100 WBC (Bld)0.3 %Normal0.2-2.0[facility] Comment on above:Performed By: #### CBC #### [facility] [address] [place] [address] Cain KarenEO #0.0 103/ulNormal0.0-0.7The [facility]itan HospitalComment on above: Performed By: #### CBC #### [facility] [address] [place] [address] Cain KarenEosinophils/100 WBC (Bld)0.3 %Critically low0.9-7.0The [facility]itan HospitalComment on above:Performed By: #### CBC #### [facility] [address] [place] [address] Cain KarenErythrocyte distribution width (RBC) [Ratio]14.3 %Jfvcum49.0-15.0The [facility]itan HospitalComment on above:Performed By: #### CBC #### [facility] [address] [place] [address] Cain KarenHematocrit (Bld) [Volume fraction]34.1 %Critically low36.0-48.0The [facility] HospitalComment on above:Performed By: #### CBC #### [facility] [address] [place] [address] Cain KarenHemoglobin (Bld) [Mass/Vol]11.1 g/dLCritically low12.0-16.0The [facility] HospitalComment on above:Performed By: #### CBC #### [facility] [address] [place] [address] Cain KarenIG #0.02 10e3/ulNormal0.00-0.03The [facility]itan HospitalComment on above:Performed By: #### CBC #### [facility] [address] [place] [address] Cain KarenIG %0.2 %Normal0.0-0.5The [facility] HospitalComment on above: Performed By: #### CBC #### [facility] [address] [place] [address] Cain KarenLYMPH #0.9 103/ulCritically low1.2-3.8The [facility] HospitalComment on above:Performed By: #### CBC #### [facility] [address] [place] [address] Cani KarenLymphocytes/100 WBC (Bld)9.3 %Critically low20.5-60.0[facility] MiamisburgCombeaumont hospital on above:Performed By: #### CBC #### [facility] [address] [place] [address] Cian KarenMANUAL DIFF REQNONormalThe [facility]itan HospitalComment on above: Performed By: #### CBC #### [facility] [address] [place] [address] Cain KarenMCH (RBC) [Entitic mass]25.6 pgCritically low26.7-34.0The [facility] HospitalComment on above:Performed By: #### CBC #### [facility] [address] [place] [address] Cain KarenMCHC (RBC) [Mass/Vol]32.6 g/wKCxrjry06.9-35.2The [facility] Comment on above:Performed By: #### CBC #### [facility] [address] [place] [address] Cain KarenMCV (RBC) [Entitic vol]78.8 fLCritically low79.1-95.6The [facility] HospitalComment on above:Performed By: #### CBC #### [facility] [address] [place] [address] Cain KarenMONO #0.6 103/ulNormal0.3-0.8The [facility] HospitalComment on above: Performed By: #### CBC #### [facility] [address] [place] [address] Cain KarenMonocytes/100 WBC (Bld)6.3 %Normal1.7-12.0[facility] Comment on above:Performed By: #### CBC #### [facility] [address] [place] [address] Cain KarenNEUT #8.0 103/ulCritically high1.4-6.5The [facility] HospitalComment on above:Performed By: #### CBC #### [facility] [address] [place] [address] Cain KarenNeutrophils/100 WBC (Bld)83.6 %Critically high43.0-75.0The [facility] HospitalComment on above:Performed By: #### CBC #### [facility] [address] [place] [address] Cain KarenPlatelet mean volume (Bld) [Entitic vol]11.0 fLNormal9.5-13.5The [facility] HospitalComment on above:Performed By: #### CBC #### [facility] [address] [place] [address] Cain PomamSGS368 103/eiUoteko120-344Trp [facility]itan HospitalComment on above: Performed By: #### CBC #### [facility] [address] [place] [address] Cain KarenRBC4.33 106/ulNormal3.40-5.30The [facility] HospitalComment on above: Performed By: #### CBC #### [facility] [address] [place], [place] [address] Cain ChapmnaWBC9.6 103/ulNormal4.0-11.0The [facility] HospitalComment on above: Performed By: #### CBC #### [facility] [address] [place], [place] [address] Cain KarenCT ABD/PELV W CONon 00-08-6519MB ABD/PELV W CONCLINICAL HISTORY: ABDOMINAL DISTENSION (GASEOUS). [...] Electronically authenticated by: HARSHA AGUILAR Date: 2021-05-05 14:12[facility] URINE PROFILEon 47-42-4478Ivqgpmcea Ql (U)NegativeNormal NEGATIVEKettering Health MiamisburgComment on above:Performed By: #### ERUR, PREGU #### [facility] [address] [place] [address] Cain KarenClarity (U)CLEARNormalCLEARKettering Health MiamisburgComment on above: Performed By: #### ERUR, PREGU #### [facility] [address] [place] [address] Cain KarenColor (U)LT. YELLOWNormalYELLOWKettering Health MiamisburgComment on above:Performed By: #### ERUR, PREGU #### [facility] [address] [place] [address] Cain KarenERUAHDA micrscopic examination will be performed if indicated.Normal The [facility]itan HospitalComment on above:Performed By: #### ERUR, PREGU #### [facility] [address] [place] [address] Cain KarenGlucose Ql (U)NegativeNormalNEGATIVEKettering Health MiamisburgComment on above:Performed By: #### ERUR, PREGU #### [facility] [address] [place] [address] Cain KarenHemoglobin Ql (U)NegativeNormalNEGATIVEKettering Health MiamisburgComment on above:Performed By: #### ERUR, PREGU #### [facility] [address] [place] [address] Cain KarenKetones Ql (U)NegativeNormalNEGATIVEKettering Health MiamisburgComment on above:Performed By: #### ERUR, PREGU #### [facility] [address] [place] [address] Cain KarenLEUKOCYTESNegativeNormalNEGATIVEKettering Health MiamisburgCombeaumont hospital on above:Performed By: #### ERUR, PREGU #### [facility] [address] [place] [address] Cain KarenNitrite Ql (U)NegativeNormalNEGATIVECenterville HospitalComment on above:Performed By: #### ERUR, PREGU #### [facility] [address] [place] [address] Cain KarenpH (U)6.5 [pH]Normal5-9The [facility] HospitalComment on above: Performed By: #### BE PREGU #### [facility] [address] [place] [address] Cain KarenSPEC GRAVITY1.789Urtmzf3.005-<=1.025The [facility] HospitalComment on above:Performed By: #### BE, PREGU #### [facility] [address] [place] [address] Cian KarenUA PROTEINNegativeNormalNEGATIVE/ TRACEThe [facility]itan HospitalComment on above:Performed By: #### BE PREGU #### [facility] [address] [place] [address] Cain KarenUR MICRO INDNOT INDICATEDNormalThe [facility] HospitalComment on above:Performed By: #### BE PREGU #### [facility] [address] [place] [address] Cain KarenUrobilinogen Qn (U)0.2 {Dagoberto'U}/dLNormal0.2 - 1.0The [facility] HospitalComment on above:Performed By: #### BE PREGU #### [facility] [address] [place] [address] Cain KarenLIPASEon 79-11-5307Fdrzkb [Catalytic activity/Vol]53.0 U/LNormal 23.0-300.0The [facility] HospitalComment on above:Performed By: #### CMP, LIPA #### [facility] [address] [place] [address] Cain KarenPREGNANCY URon 79-95-6180BAVMWTANX, QUALNegativeNormalNEGATIVEThe [facility] HospitalComment on above:Performed By: #### BE PREGU #### [facility] [address] [place] [address] Cain KarenPROF 14(COMP METB)on 13-70-2255Jnmnxuo [Mass/Vol]3.7 g/dLNormal 3.5-5.0[facility] MiamisburgComment on above:Performed By: #### CMP, LIPA #### [facility] [address] [place] [id number] Cain KarenAlbumin/Globulin [Mass ratio]1.2 {ratio}NormalKettering Health Miamisburg Comment on above:Performed By: #### CMP, LIPA #### [facility] [address] [place] [address] Cain KarenALP [Catalytic activity/Vol]86 U/NOggsod17-786OsoKettering Health Miamisburg Comment on above:Performed By: #### CMP, LIPA #### [facility] [address] [place] [address] Cain KarenALT [Catalytic activity/Vol]22 U/LNormal9-52[facility] Comment on above:Performed By: #### CMP, LIPA #### [facility] [address] [place] [address] Cain KarenAnion gap [Moles/Vol]11.6 mmol/LNormalKettering Health MiamisburgComment on above:Performed By: #### CMP, LIPA #### [facility] [address] [place] [address] Cain KarenAST [Catalytic activity/Vol]15 U/TNuwwrc10-77SnhKettering Health Miamisburg Comment on above:Performed By: #### CMP, LIPA #### [facility] [address] [place] [address] Cain KarenBilirubin [Mass/Vol]0.5 mg/dLNormal0.2-1.3TMercy Hospital Comment on above:Performed By: #### CMP, LIPA #### [facility] [address] [place] [address] Cain KarenCalcium [Mass/Vol]9.2 mg/dLNormal8.4-10.2[facility] Comment on above:Performed By: #### CMP, LIPA #### [facility] [address] [place] [address] Cain KarenChloride [Moles/Vol]105 mmol/NIegcsy93-131I[facility] Comment on above:Performed By: #### CMP, LIPA #### [facility] [address] [place] [address] Cain KarenCO2 [Moles/Vol]25.4 mmol/UBmimxk29.0-30.0[facility] Comment on above:Performed By: #### CMP, LIPA #### [facility] [address] [place] [address] Cain KarenCreatinine [Mass/Vol]0.72 mg/dLNormal0.52-1.04[facility] Comment on above:Performed By: #### CMP, LIPA #### [facility] [address] [place] [address] Cain KarenGlobulin (S) [Mass/Vol]3.2 g/dLNormalThe [facility] HospitalComment on above:Performed By: #### CMP, LIPA #### [facility] [address] [place] [address] Cain KarenGlucose [Mass/Vol]88 mg/uMRjzmtd46-368KdiKettering Health MiamisburgComment on above:Performed By: #### CMP, LIPA #### [facility] [address] [place] [address] Cain KarenPotassium [Moles/Vol]4.0 mmol/LNormal3.4-5.0[facility] Comment on above:Performed By: #### CMP, LIPA #### [facility] [address] [place] [address] Cain KarenProtein [Mass/Vol]6.9 g/dLNormal6.1-8.2[facility] MiamisburgComment on above:Performed By: #### CMP, LIPA #### [facility] [address] [place] [address] Cain KarenSodium [Moles/Vol]138 mmol/OUvzinr136-918CjpKettering Health Miamisburg Comment on above:Performed By: #### CMP, LIPA #### [facility] [address] [place] [address] Cain KarenUrea nitrogen [Mass/Vol]8.0 mg/dLNormal6.4-19.3[facility] Comment on above:Performed By: #### TEENA WATKINS #### [facility] [address] [place], [place] [address] Cain KarenUrea nitrogen/Creatinine [Mass ratio]11.1 mg/mgClermont County HospitalComment on above:Performed By: #### JUNE, TEENA #### [facility] [address] [place], [place] [address] Cain KarenUS PELVIS TRANSVAGon 32-71-4656ZG PELVIS TRANSVAGEXAM: US PELVIS TRANSVAG HISTORY: Cyst [...] Electronically authenticated by: JONI GUZMAN Date: 2021-05-05 15:27[facility] Vital Signs Date TimeVital SignValuePerforming OdwhivjikHlkiamov13-76-8793 15:28-0400Body mass index (BMI) [Ratio]28.97 kg/m2Munira LALA Work Phone: [facility] HospitalKihvkfvvjv50-56-5661 15:28-0400Body akshra71.57 kgMunira LALA Work Phone: [facility] HospitalTieoljnojx43-75-8312 15:28-0400Diastolic blood gwkprrem99 mm[Hg]Munira Garcia PA Work Phone: [phone] [place], [place] [address]Vgzufrfzec29-93-0736 15:28-0400Systolic blood phbexebp798 mm[Hg]Munira Damoney PA Work Phone: [phone] [place], [place] [address]Qannhziyku11-16-1924 15:16-0400Body mass index (BMI) [Ratio]28.92 kg/m2Munira Garcia PA Work Phone: [phone] [place], [place] [address]Flxgrrgwvh78-38-7391 15:16-0400Body zkpheh77.43 kgMunira Garcia PA Work Phone: [phone] [place] [address]-16-2025 15:16-0400Diastolic blood mm[Hg]Munira Damoney PA Work Phone: [phone] [place], [place] [address]Lrekbutgpg36-50-6180 15:16-0400Systolic blood rbaguifj222 mm[Hg]Munira Gigi PA Work Phone: [phone] [place], [place] [address]Bgubzoctjw05-22-6953 13:59-0400Body mass index (BMI) [Ratio]28.84 kg/k3YqksvfwzDarlene Olmstead [employer] Work Phone: [phone] [place], [place] [address]Dwcgnscggl67-16-3838 13:59-0400Body trdchy20.2 kg Darlene Olmstead [employer] Work Phone: [phone] [place], [place] [address]Driwgdbwtm49-59-5375 13:59-0400Diastolic blood auttjddf28 mm[Hg]Darlene Olmstead [employer] Work Phone: [phone] [place], [place] [address]Bmuvtylfzr15-91-5916 13:59-0400Systolic blood lmyykaiw626 mm[Hg]Darlene Olmstead [employer] Work Phone: [phone] [place], [place] [address]Wkpadjfdpu15-84-4742 15:28-0400Body mass index (BMI) [Ratio]28.69 kg/d8Pkojq Tulio DO Work Phone: [phone] [place], [place] [address]Gaxmftxpbj08-99-9950 15:28-0400Body fyfsvp62.81 kgCorey Tulio DO Work Phone: [phone] [place], [place] [address]Zkgqgiwizz83-85-2451 15:28-0400Diastolic blood oxisoaoy62 mm[Hg]Shania Tulio DO Work Phone: [phone] [place], [place] [address]Ndwivmmwbm29-55-4201 15:28-0400Systolic blood cvadcneo195 mm[Hg]Shania Tulio DO Work Phone: [phone] [place], [place] [address]Nqetdznlkr78-71-0326 13:52-0400Body mass index (BMI) [Ratio]28.97 kg/d7Wgijh Tulio DO Work Phone: [phone] [place], [place] [address]Tecckrnlct45-70-4460 13:52-0400Body zspwda47.57 kgCorey Tulio DO Work Phone: [phone] [place] [address]-20-2025 13:52-0400Diastolic blood gqytiete14 mm[Hg]Shania Tulio DO Work Phone: [phone] [place], [place] [address]Yqisgmdifk52-97-0315 13:52-0400Systolic blood hemwbcek809 mm[Hg]Shania Tulio DO Work Phone: [phone] [place], [place] [address]Cppzrhhdke75-35-8066 15:54-0400Body mass index (BMI) [Ratio]28.24 kg/m2Amy Gigi PA Work Phone: [phone] [place], [place] [address]Kqxyatlgrg27-84-8073 15:54-0400Body ojugag01.62 kgAmy Gigi PA Work Phone: [phone] [place], [place] [address]Xfftofihfd41-57-2469 15:54-0400Diastolic blood rzlnaiyq06 mm[Hg]Munira Garcia PA Work Phone: [phone] [place], [place] [address]Flebzkphul61-75-0708 15:54-0400Systolic blood yjyxmvld151 mm[Hg]Munira Garcia PA Work Phone: [phone] [place], [place] [address]Ogapmgjmdm73-93-9844 13:34-0400Body mass index (BMI) [Ratio]29.35 kg/e1Ahrfi Tulio DO Work Phone: [phone] [place], [place] [address]Qyvnfngpjq21-05-5663 13:34-0400Body axvmax53.56 kgCorey Tulio DO Work Phone: [phone] [place], [place] [address]Wsuhowfony10-84-4014 13:34-0400Diastolic blood muugneht76 mm[Hg]Shania Tulio DO Work Phone: NOBarton County Memorial HospitalKcvwkomsjw59-23-3895 13:34-0400Systolic blood jiedrnbv801 mm[Hg]Shania Tulio DO Work Phone: NOBarton County Memorial HospitalDtozhghqnq36-35-1517 11:07-0400Body .6 cmSfacundo Hernandes [employer] Work Phone: [facility] HospitalTvbpylcxug56-29-5574 11:07-0400Body mass index (BMI) [Ratio]29.18 kg/s0DzwukyJose Antonio Hernandes [employer] Work Phone: [facility] HospitalGyytuvqsaz56-54-8500 11:07-0400Body uiuisf56.11 kgJose Antonio Hernandes [employer] Work Phone: [facility] HospitalJltzyotztq18-75-1975 11:07-0400Diastolic blood mm[Hg]Jose Antonio Hernandes [employer] Work Phone: [facility] HospitalNqrnmymqrb89-66-7184 11:07-0400Heart rate79 /min Jose Antonio Hernandes [employer] Work Phone: [facility] HospitalQeuaplvywm38-20-9621 11:07-0400Respiratory rate16 /minSfacundo Hernandes [employer] Work Phone: [facility] HospitalBduzldefif65-74-5009 11:07-0798LfB7% (BldA) [Mass fraction]98 %Jose Antonio Hernandes [employer] Work Phone: [facility] HospitalQcbdehqpkq21-55-0358 11:07-0400Systolic blood orvlxwar509 mm[Hg]Jose Antonio Hernandes [employer] Work Phone: [facility] HospitalAspfjphhzr87-49-7877 13:36-0500Body mass index (BMI) [Ratio]32.58 kg/e0Dtiyi Tulio DO Work Phone: [facility] HospitalOkabjevnok99-00-3076 13:36-0500Body .09 kgCorey Tulio DO Work Phone: [facility] HospitalAiizgklbmb12-82-5280 13:36-0500Diastolic blood mm[Hg]Shania Tulio DO Work Phone: NOZH Enhjxfxlmf09-20-9752 13:36-0500Systolic blood jdavrmpq956 mm[Hg]Shania Tulio DO Work Phone: [facility] Encounters Encounter DateEncounter TypeCare ProviderFacilityStart: 08-27-2025 End: 48-41-6381Tuoretwlf Result EncounterDarlene Olmstead [employer] Work Phone: [facility] External Department UnsolicitedStart: 08-27-2025 End: 69-89-3086Xbtujcbtv Result EncounterKrbonny Olmstead [employer] Work Phone: [facility] External Department UnsolicitedStart: 08-26-2025 End: 93-10-2825Fwjbldjuy Result EncounterDarlene Olmstead [employer] Work Phone: [facility] External Department UnsolicitedStart: 08-26-2025 End: 34-63-9423Tunzwqdkx Result EncounterDarrelbonny Ishan [employer] Work Phone: [facility] External Department UnsolicitedStart: 08-25-2025 End: 95-84-2139rycsqgtfekLIC RAMEYNot AvailableStart: 08-25-2025 End: 43-10-0933Ncmsyh outpatient visit 15 minutesMunira LALA Work Phone: [facility] [place] OBGYNComment on above:Urinary tract infection without hematuria, site unspecified (Primary Dx); Third trimester ([facility]); 32 weeks gestation of ([facility])Start: 08-25-2025 End: 95-29-0310Djekvt flowsheetMunira LALA Work Phone: [facility] [place] OBGYNStart: 08-25-2025 End: 12-51-3184Wcgeln Lela LALA Work Phone: [facility] [place] OBGYNStart: 08-22-2025 End: 11-40-1848Tsfqwlveb Result EncounterCorey Tulio DO Work Phone: no External Department UnsolicitedStart: 08-22-2025 End: 44-44-6478Ewmnqeiiq Result EncounterCorey Tulio DO Work Phone: [facility] External Department UnsolicitedStart: 08-19-2025 End: 09-53-0708Cwrmoxjty Result EncounterCorey Tulio DO Work Phone: [facility] External Department UnsolicitedStart: 08-19-2025 End: 28-72-9571Zceoungvl Result EncounterCorey Tulio DO Work Phone: [facility] External Department UnsolicitedStart: 08-11-2025 End: 19-99-3860Hjtfjr outpatient visit 15 minutesAmy Gigi LALA Work Phone: noMS [place] OBGYNComment on above:Third trimester ([facility]); 30 weeks gestation of ([facility])Start: 08-11-2025 End: 33-11-6633ewelvxidueLIT RAMEYNot AvailableStart: 07-27-2025 End: 31-86-2419Nuxvgf flowsPablo Olmstead [employer] Work Phone: [facility] [place] OBGYNStart: 07-27-2025 End: 37-28-8068Yvtnwx flowsheetAngelinaa Ishan [employer] Work Phone: [facility] [place] [facility]BGYNStart: 07-27-2025 End: 65-39-2450dkeinpmvsnCGUHXSYF EBERLYNot AvailableStart: 07-27-2025 End: 91-92-6073Ktpdif outpatient visit 15 minutesDarlene Olmstead NP Work Phone: [facility] [place] OBGYNComment on above:Anemia, unspecified type (Primary Dx); 28 weeks gestation of ([facility]); Third trimester ([facility]); Elevated glucose tolerance testStart: 07-25-2025 End: 68-67-2552Kyoqhwrpa Result EncounterGeneric External Data ProviderNOMS External Department UnsolicitedStart: 07-25-2025 End: 77-79-3220Sqzvfgwex Result EncounterGeneric External Data ProviderNOND External Department UnsolicitedStart: 07-13-2025 End: 74-04-6791Lxkntz outpatient visit 15 minutesCorey Tulio DO Work Phone: [facility] [place] OBGYNComment on above:Cystitis (Primary Dx); 26 weeks gestation of ([facility]); Second trimester ([facility]); Gastroesophageal reflux in ([facility])Start: 07-13-2025 End: 83-50-2691sfueosxnbtZTTOZ FAZIONot AvailableStart: 07-13-2025 End: 47-89-8691Sseydr flowsheetCorey Tulio DO Work Phone: [facility] OBGYNStart: 07-13-2025 End: 80-92-5655Fkprtv flowsheetCorey Tulio DO Work Phone: [facility] OBGYNStart: 06-15-2025 End: 00-75-5937Ymnupu flowsheetCorey Tulio DO Work Phone: [facility] OBGYNStart: 06-15-2025 End: 63-81-8972Vgccfv flowsheetCorey Tulio DO Work Phone: [facility] OBGYNStart: 06-15-2025 End: 16-90-1408Mwbtcy outpatient visit 15 minutesCorey Tulio DO Work Phone: [facility] OBGYNComment on above:22 weeks gestation of ([facility]); Second trimester ([facility]); Diabetes mellitus screeningStart: 06-15-2025 End: 77-44-8082ktiegqnrjbDCFBR FAZIONot AvailableStart: 05-31-2025 End: 90-10-7289plwthtphqpUJT RAMEYNot AvailableStart: 05-18-2025 End: 95-00-8114Fqoupm outpatient visit 15 minutesMunira LALA Work Phone: [facility] BCP OBComment on above:Screening, , for anatomic survey ([facility]); STD exposure; Vaginal discharge; Second trimester ([facility]); 18 weeks gestation of ([facility])Start: 05-18-2025 End: 08-31-7455guvargfarfZTN RAMEYPaul AvailableStart: 05-18-2025 End: 75-18-7289Btvzsb carmenheetMunira LALA Work Phone: NOYU BCP OBStart: 05-18-2025 End: 28-85-5343Ttdvny flowsheetMunira Garcia PA Work Phone: [facility] BCP OBStart: 05-18-2025 End: 32-77-4568Qghsrnah Result EncounterMunira LALA Work Phone: NOBY External Department UnsolicitedStart: 04-06-2025 End: 12-93-7559Wtpqlm flowsheetCorey Tulio DO Work Phone: NORA BCP OBStart: 04-06-2025 End: 69-34-8282Ijdjax flowsheetCorey Tulio DO Work Phone: NOKY BCP OBStart: 04-06-2025 End: 47-55-3455Qkjpwr outpatient visit 15 minutesCorey Tulio DO Work Phone: NOZT BCP OBComment on above:First trimester ; 12 weeks gestation of ; Urinary tract infection without hematuria, site unspecified; Other iron deficiency anemiaStart: 04-06-2025 End: 84-83-0919ozuuikcbxkVHSXJ FAZIONot AvailableStart: 04-05-2025 End: 71-51-7032Ecmucs flowsИрина Hernandes [employer]ER Work Phone: [facility] CI FMStart: 04-05-2025 End: 34-30-5304Ltskpa Heide Hernandes [employer] Work Phone: [facility] CI FMStart: 04-05-2025 End: 30-91-3593Fzobzx outpatient visit 25 minutesShgaye Hernandes [employer] Work Phone: [facility] CI FMComment on above:Jaw pain (Primary Dx); Major depressive disorder, single episode, 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) (CMS/HCC); Otalgia of both earsStart: 04-05-2025 End: 25-99-0817wskxqnomneLNFOPA M SHIVELYNot AvailableStart: 04-01-2025 End: 98-99-4269Csvuojwgm Result EncounterGeneric External Data ProviderNOMS External Department UnsolicitedStart: 04-01-2025 End: 54-13-7215Goylvzgjl Result EncounterGeneric External Data ProviderNOMS External Department UnsolicitedStart: 03-10-2025 End: 78-77-9174exxytmzfmtRVPYPK SHIVELYNot AvailableStart: 03-10-2025 End: 68-48-6925Obdlph outpatient visit 5 minutesNoms Bcp Ob Tulio NurseNOMS BCP OBComment on above:GA: 8b2bWocdq: 03-10-2025 End: 14-00-9048wjgruijoxaRPFWGL SHIVELYNot AvailableStart: 09-07-2024 End: 68-14-7658Inyedk flowsheetCorey Tulio DO Work Phone: noms BCP OBStart: 09-07-2024 End: 48-77-7036Fnzjil flowsheetCorey Tulio DO Work Phone: [facility] BCP OBStart: 09-07-2024 End: 52-93-8755Mksegx outpatient visit 15 minutesCorey Tulio DO Work Phone: noms BCP OBComment on above:PCOS (polycystic ovarian syndrome); Hormone imbalance; Pelvic pain in female; Pain in female genitalia on intercourseStart: 09-07-2024 End: 95-27-5383jyfmaqndxlFJZXO FAZIONot AvailableStart: 06-15-2024 End: 44-65-7616Uvhwfkkww Result EncounterGeneric External Data ProviderNOMS External Department UnsolicitedStart: 06-15-2024 End: 19-79-4745Ugnfidbyb Result EncounterGeneric External Data ProviderNOMS External Department UnsolicitedStart: 01-02-2022 End: 05-76-4895zyaoeescvoSO HEAVENLY CHAPARROFacility:Q0Sjdgq: 10-12-2021 End: 63-67-6365iqfjmyyimhBK HEAVENLY FRANCISASIKFacility:X5Hwrdn: 05-05-2021 End: 36-86-1379waydqfuzikKG ELIANA ALDAFacility:H1 Procedures DateProcedureProcedure DetailPerforming ClinicianStart: 66-08-8503QQF HEMOGLOBIN B4RFhgmmiox Ishan [employer] Work Phone: Start: 16-96-5583WKZ CBC WITH AUTO DIFFKristina Ishan [employer]ER Work Phone: Start: 84-18-0553Zjwyq dip stick/tablet rgnt non-auto w/o micrscpKristina Ishan [employer]ER Work Phone: Start: 81-68-9317SKGWMOT TOLERANCE 3 HOURCorey Tulio DO Work Phone: Start: 33-41-3592FFV UA (CLEAN/CATCH) 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 IF IND.Shania Tulio DO Work Phone: Start: 21-82-7585Uabpy dip stick/tablet rgnt non-auto w/o micrscAftab LALA Work Phone: Start: 91-34-7991Sarge dip stick/tablet rgnt non-auto w/o micrscpKristina Ishan [employer]ER Work Phone: Start: 72-50-6836JIY CBC WITH AUTO DIFFCorey Tulio DO Work Phone: Start: 33-13-7976Nwrvr dip stick/tablet rgnt non-auto w/o micrscpCorey Tulio DO Work Phone: Start: 67-64-3932Mwrke dip stick/tablet rgnt non-auto w/o micrscpCorey Tulio DO Work Phone: Start: 22-92-2972WDNUQYUHB VAGINITIS (HTRX)Munira LALA Work Phone: Start: 14-19-7584Gtily dip stick/tablet rgnt non-auto w/o palakscAftab Garcia PA Work Phone: Start: 68-63-1175Crmwx dip stick/tablet rgnt non-auto w/o micrscpCorey Tulio DO Work Phone: Start: 35-43-1632GXS CBC WITH AUTO DIFFCorey Tulio DO Work Phone: Start: 13-73-7061FD PELVIS W/ TRANSVAGINALGeneric External Data ProviderStart: 60-21-9394EMY ANTI-MULLERIAN HORMONECorey Tulio DO Work Phone: Start: 24-09-1674XHI CBC WITH AUTO DIFFCorey Tulio DO Work Phone: Start: 54-57-2176RXG DEHYDROEPIANDROSTERONECorey Tulio DO Work Phone: Start: 81-02-8439MHO DHEA SULFATEGeneric External Data ProviderStart: 51-95-1326EZF FOLLICLE STIMULATING HORMONEGeneric External Data ProviderStart: 40-01-8822BLA LUTEINIZING HORMONEGeneric External Data Provider Plan of Treatment DateCare ActivityDetailAuthorStart: 09-13-2025 End: 83-16-8651Zwbsuhc encounter /18/2025 9:20 AM EST Routine [facility] [address] [place], [id number] Shania Antunez DO [address] [place] [address] [facility] OBGYNStart: 08-25-2025 End: 65-73-2701Xaaekau encounter wmtmbfmis51/30/2025 3:20 PM EDT Routine [facility] [address] [place], [id number] Munira Garcia PA [address] [place] [address] [facility] OBGYNStart: 07-27-2025 End: 66-47-3832Dlxdiraohmy of glucose 3 hours after glucose challenge for glucose tolerance testGlucose tolerance, 3 hours Lab Routine Elevated glucose tolerance test Expected: 07/27/2025 (Approximate), Expires: 07/27/2026[facility] Work Phone: comment on above:Expected: 07/27/2025 (Approximate), Expires: 07/27/2026Start: 07-27-2025 End: 45-60-3486Rqabazd encounter gjqqxnmuw46/01/2025 1:50 PM EDT Routine [facility] [address] [place], [id number] Darlene Olmstead, [employer] [address] [place] [address] [facility]OMK[facility] OBGYNStart: 07-13-2025 End: 35-84-0681Awgqvll encounter procedureNOMS Deion OBGYNComment on above: ArrivedStart: 07-13-2025 End: 13-95-1191KN for pregnancyUS OB follow up transabdominal approach Imaging Routine Second trimester ([facility]) Expected: 07/13/2025, Expires: 11/12/2025[facility] Work Phone: comment on above:Expected: 07/13/2025, Expires: 11/12/2025Start: 61-75-2706GJLOR-19 Vaccine ( season)COVID-19 Vaccine ( season)[facility] HealthcareStart: 70-42-3918Dmbsbbpnl vaccinationNOND HealthcareStart: 06-15-2025 End: 74-86-2031WXE panel - Blood by Automated countCBC Lab Routine Diabetes mellitus screening Expected: 06/15/2025 (Approximate), Expires: 06/15/2026[facility] Work Phone: comment on above:Expected: 06/15/2025 (Approximate), Expires: 06/15/2026Start: 06-15-2025 End: 84-59-1332Sppebayamjy of glucose 1 hour after glucose challenge for glucose tolerance testGlucose tolerance, 1 hour Lab Routine Diabetes mellitus screening Expected: 06/15/2025 (Approximate), Expires: 06/15/2026[facility] HealthcareComment on above:Expected: 06/15/2025 (Approximate), Expires: 06/15/2026Start: 06-15-2025 End: 10-16-1601Iawmrtv encounter procedureS[facility] OBComment on above:Arrived Start: 05-31-2025 End: 90-17-2591Qyghgceomyzp / ancillary services lhqbjtggez66/05/2025 8:30 AM EDT Ancillary Procedure [facility] [address] [place] [address] [facility] OBStart: 05-18-2025 End: 16-05-2919Owarkio encounter rytrtqldx98/23/2025 3:30 PM EDT Routine [facility] [address] [place] [address] Munira Garcia PA [address] [place], [place] [address] ArrivedS[facility] OBComment on above: ArrivedStart: 05-18-2025 End: 09-92-7999Qfzra fetoprotein, maternalAlpha fetoprotein, maternal Lab Routine 18 weeks gestation of ([facility]) Expected: 05/18/2025 (Approximate), Expires: 06/18/2025[facility] HealthcareComment on above:Expected: 05/18/2025 (Approximate), Expires: 06/18/2025Start: 05-18-2025 End: 97-40-6734UF for pregnancyUS OB 14+ weeks anatomy scan Imaging Routine Screening, , for anatomic survey ([facility]) Expected: 05/18/2025, Expires: 08/18/2025[facility] HealthcareComment on above:Expected: 05/18/2025, Expires: 08/18/2025Start: 05-04-2025 End: 39-11-2996Njyuplk encounter okfjrllyk79/09/2025 2:30 PM EDT Routine [facility] [address] [place] [address] Munira Garcia PA [address] [place] [address] [facility] BCP OBStart: 04-06-2025 End: 00-28-4806Fecdtau encounter procedureNOMS BCP OBComment on above:Arrived Start: 04-05-2025 End: 90-96-5812Szgadha encounter procedureNOMS BCP OBComment on above:Arrived Start: 03-10-2025 End: 58-04-5905IMG/RhABO/Rh Lab Routine Missed menses , unspecified gestational age Expected: 03/10/2025 (Approximate), Expires: 03/10/2026N[facility] HealthcareComment on above:Expected: 03/10/2025 (Approximate), Expires: 03/10/2026Start: 03-10-2025 End: 73-26-0971Iyitl type and Indirect antibody screen panel - BloodType and screen Lab Routine Missed menses , unspecified gestational age Expected: 03/10/2025 (Approximate), Expires: 03/10/2026N[facility] HealthcareComment on above:Expected: 03/10/2025 (Approximate), Expires: 03/10/2026Start: 03-10-2025 End: 94-59-3045Znzgb of abuse panel - Urine by Screen methodRapid drug screen, urine Lab Routine , unspecified gestational age Encounter for supervision of normal first in first trimester Expected: 03/10/2025 (Approximate), Expires: 03/10/2026N[facility] HealthcareComment on above:Expected: 03/10/2025 (Approximate), Expires: 03/10/2026Start: 03-09-2025 End: 48-59-4387BP Pelvis transvaginalUS OB transvaginal Imaging Routine Missed menses Expected: 03/09/2025, Expires: 06/09/2025[facility] Work Phone: comment on above:Expected: 03/09/2025, Expires: 06/09/2025Start: 11-01-2024 End: 82-01-7036Pykwyqb encounter juoknlwni75/06/2025 1:20 PM EST Consult [facility] [address] [place] [address] Shania Antunez, DO [address] [place] [address] [facility] OBStart: 09-07-2024 End: 59-15-0454Opkpykm encounter ceaaslhwq61/12/2024 8:40 AM EST [facility] [address] [place] [address] Shania Antunez, DO [address] [place] [address] [facility] OBStart: 46-34-9051Gkrmjbfkt vaccination Influenza Vaccine (#1)NOM HealthcareStart: 24-37-1179Dqaehqutp B Vaccines (1 of 3 - 19+ 3-dose series)Hepatitis B Vaccines (1 of 3 - 19+ 3-dose series)NOM HealthcareStart: 64-99-2654Aoizpiwsleoe Vaccine: Pediatrics (0 to 5 Years) and At-Risk Patients (6 to 64 Years) (1 of 2 - PCV)Pneumococcal Vaccine: Pediatrics (0 to 5 Years) and At-Risk Patients (6 to 64 Years) (1 of 2 - PCV)NOM HealthcareStart: 56-47-2514Kxiomxsuaucud B Vaccine (1 of 2 - Standard) Meningococcal B Vaccine (1 of 2 - Standard)NOM HealthcareStart: 11-58-0045LKL Vaccines (1 - 3-dose series)HPV Vaccines (1 - 3-dose series)[facility] Start: 53-56-4531Knyelbg of varicella vaccinationVaricella Vaccines (1 of 2 - 13+ 2-dose series)NOM HealthcareStart: 31-11-7453GCzG/Tdap/Td Vaccines (1 - Tdap)DTaP/Tdap/Td Vaccines (1 - Tdap)NOM HealthcareStart: 70-43-6658PFK Vaccines (1 of 1 - Standard series)MMR Vaccines (1 of 1 - Standard series)[facility]OMS HealthcareBacteria identified in Urine by CultureUrine culture Microbiology Routine Missed menses Ordered: 03/10/2025[facility] HealthcareComment on above: Ordered: 03/10/2025acteria identified in Urine by CultureUrine culture Microbiology Routine Cystitis Ordered: 07/13/2025[facility] HealthcareComment on above:Ordered: 07/13/2025BC W Auto Differential panel - BloodCBC and differential Lab Routine Missed menses , unspecified gestational age Ordered: 03/10/2025[facility] HealthcareComment on above:Ordered: 03/10/2025BC W Auto Differential panel - BloodCBC and differential Lab Routine 32 weeks gestation of ([facility]) Ordered: 08/25/2025[facility] Work Phone: comment on above:Ordered: 08/25/2025HLAMYDIA TRACHOMATIS (GENITO/STI)CHLAMYDIA TRACHOMATIS (GENITO/STI) Lab Routine Vaginal discharge Ordered: 05/18/2025[facility] HealthcareComment on above:Ordered: 05/18/2025 Hemoglobin A1c/Hemoglobin.total in BloodHemoglobin A1c Lab Routine Missed menses , unspecified gestational age Ordered: 03/10/2025[facility] Comment on above:Ordered: 03/10/2025Hepatitis B virus surface Ag [Presence] in Serum or Plasma by ImmunoassayHepatitis B surface antigen Lab Routine Missed menses , unspecified gestational age Ordered: 03/10/2025[facility] Comment on above:Ordered: 03/10/2025Hepatitis C virus Ab [Presence] in Serum or Plasma by ImmunoassayHepatitis C antibody Lab Routine Missed menses , unspecified gestational age Ordered: 03/10/2025[facility] HealthcareComment on above: Ordered: 03/10/2025HIV-1/HIV-2 antigen/antibody combination immunoassayHIV-1 and HIV-2 antibodies Lab Routine Missed menses , unspecified gestational age Ordered: 03/10/2025[facility] HealthcareComment on above:Ordered: 03/10/2025 Neisseria gonorrhoeae DNA [Presence] in Unspecified specimen by STEVO with probe detectionNeisseria gonorrhea DNA probe, direct Lab Routine Vaginal discharge Ordered: 05/18/2025[facility] HealthcareComment on above:Ordered: 05/18/2025 ProgesteroneProgesterone Lab Routine Hormone imbalance Ordered: 09/07/2024[facility] Work Phone: comment on above:Ordered: 09/07/2024eagin Ab [Presence] in Serum by RPRRPR Lab Routine Missed menses , unspecified gestational age Ordered: 03/10/2025[facility] HealthcareComment on above:Ordered: 03/10/2025Rubella antibody, IgGRubella antibody, IgG Lab Routine Missed menses , unspecified gestational age Ordered: 03/10/2025[facility] HealthcareComment on above:Ordered: 03/10/2025SURESWAB(R) ADVANCED VAGINITIS PLUS, TMASURESWAB(R) ADVANCED VAGINITIS PLUS, TMA Pathology and Cytology Routine Vaginal discharge Ordered: 05/18/2025[facility] Work Phone: comment on above:Ordered: 05/18/2025US Pelvis transvaginalUS OB transvaginal Imaging Routine Missed menses 03/10/2025 2:28 PM [facility] [place] Payers DatePayer CategoryPayerPolicy [id number] [id number] 2023Medicaid (Managed Care) [id number] [id number] [id number] 2.16.840.1.416885.3.57[id number] 2.16.840.1.417826.3.57[id number] 2.16.840.1.468391.3.57[id number] 2.16.840.1.828221.3.57[id number] 2.16.840.1.752199.3.57[id number] 2.16.840.1.470470.3.57[id number] 2.16.840.1.496959.3.57[id number] 2.16.840.1.269081.3.57[id number] 2.16.840.1.025628.3.57[id number] 2.16.840.1.036886.3.57[id number] 2.16.840.1.727368.3.57[id number] 2.16.840.1.212075.3.57[id number] 2.16.840.1.473722.3.57[id number] 2.16.840.1.372668.3.57[id number] 2.16840.1.452325.3.57[id number] 2.16840.1.717154.3.57[id number] Social History DateTypeDetailFacilityStart: 12-30-2023 End: 48-23-3221Qhxltda smoking status NHISNever smoked tobaccoNOND Healthcare Start: 12-30-2023 End: 30-17-4225Vgkwjpt of Social functionNOMS HealthcareStart: 12-30-2023 End: 42-74-8178Vqysxru use panelNOND HealthcareStart: 79-37-2980Oul assigned at birthNot on fileNOND HealthcareStart: 74-73-0383XfrlqtmdyCIJJ HealthcareStart: 91-07-5231Gdmkmbq use and exposureSmokeless tobacco non-userNOND Healthcare Start: 04-05-2025 End: 47-94-5093Npqylqvsd beverage intakeLifetime non-drinker (finding)[facility] HealthcareStart: 54-65-9086BgiSatjadJWBW HealthcareNEGATED: Highlighted row Start: NINFHistory of tobacco usePassive smokerLOGAN REGIONAL HOSPITAL Healthcare Functional Status NfihJzjwjehcmbKymgawXovtqllw57-31-9949Emvsgne Health Questionnaire 2 item (PHQ- 2) [Reported][facility] Clinical Notes 09-07-2024 to 08-25-2025 Note Date & FxfaBodkPovwkgpj29-92-2002 History of Present illness Narrative* Darlene Olmstead [employer] - 08/25/2025 3:20 PM EDT Reason for [...] Size of fetus inconsistent with dates, antepartum ([facility]) 08/10/2025 Resolved Ambulatory Problems Diagnosis Date Noted [...] nursing note reviewed. Exam conducted with a photograph retoucher present. Vitals: Estimated body mass index is 28.97 kg/m as calculated from the following: Height as of 04/05/25: 5' 4 . Weight as of this encounter: 168 lb 12.8 oz. BP: 118/60 Patient's last menstrual period was 01/07/2025. Assessment/Plan ICD-10-CM 1. Third trimester ([facility]) Z34.93 2. 32 weeks gestation of ([facility]) Z3A.32 POCT urinalysis dipstick manually resulted Return [...] of: Darlene Olmstead NP documented in this encounterSouthPointe HospitalQwjozelzvb24-03-5811 History of Present illness Narrative* SPIKE Guzman [...] Size of fetus inconsistent with dates, antepartum ([facility]) 08/10/2025 Resolved Ambulatory Problems Diagnosis Date [...] ASSESSMENT & PLAN ICD-10-CM 1. Third trimester ([facility]) Z34.93 POCT urinalysis dipstick manually resulted 2. 30 weeks gestation of ([facility]) Z3A.30 Return OB: Patient presents today for [...] surgical history on file. documented in this encounterSouthPointe HospitalWxxtoiougv77-42-9755 History of Present illness Narrative* Darlene Olmstead [...] nursing note reviewed. Exam conducted with a photograph retoucher present. Vitals: Estimated body mass index is 28.84 kg/m as calculated from the following: Height as of 04/05/25: 5' 4 . Weight as of this encounter: 168 lb. BP: 112/70 Patient's last menstrual period was 01/07/2025. ASSESSMENT & PLAN ICD-10-CM 1. Anemia, unspecified type D64.9 iron polysaccharides (ProFe) 391.3 (180 Fe) MG capsule 2. 28 weeks gestation of ([facility]) Z3A.28 POCT urinalysis dipstick manually resulted 3. Third trimester ([facility]) Z34.93 4. Elevated glucose tolerance test R73.09 [...] of: Darlene Olmstead NP documented in this encounterSouthPointe HospitalKvjsdhuxcu25-75-9316 History of Present illness Narrative* Darlene Olmstead [...] disorder without psychotic features without prior episode ([facility]) 12/30/2023 Exercise-induced asthma (HCC) 12/30/2023 Patellofemoral syndrome [...] nursing note reviewed. Exam conducted with a photograph retoucher present. Vitals: Estimated body mass index is 28.69 kg/m as calculated from the following: Height as of 04/05/25: 5' 4 . Weight as of this encounter: 167 lb 1.9 oz. BP: 120/68 Patient's last menstrual period was 01/07/2025. ASSESSMENT & PLAN ICD-10-CM 1. Cystitis N30.90 nitrofurantoin, macrocrystal-monohydrate, (Macrobid) 100 MG capsule Urine culture 2. 26 weeks gestation of ([facility]) Z3A.26 POCT urinalysis dipstick manually resulted 3. Second trimester ([facility]) Z34.92 POCT urinalysis dipstick manually resulted US OB follow up transabdominal approach 4. Gastroesophageal reflux in ([facility]) O99.619 omeprazole (PriLOSEC) [address] capsule [...] of: Shania Antunez DO documented in this encounterSouthPointe HospitalWegvbckvic69-68-0631 History of Present illness Narrative* SPIKE Guzman [...] PLAN ICD-10-CM 1. 22 weeks gestation of ([facility]) Z3A.22 POCT urinalysis dipstick manually resulted 2. Second trimester ([facility]) Z34.92 POCT urinalysis dipstick manually resulted 3. [...] of: Shania Antunez DO documented in this encounterSouthPointe HospitalRxoyrihybt77-98-9814 History of Present illness Narrative* SPIKE Guzman [...] ICD-10-CM 1. Screening, , for anatomic survey ([facility]) Z36.89 US OB 14+ weeks anatomy scan US OB 14+ weeks anatomy scan 2. STD exposure Z20.2 3. Vaginal discharge N89.8 SURESWAB(R) ADVANCED VAGINITIS PLUS, TMA CHLAMYDIA TRACHOMATIS (GENITO/STI) Neisseria gonorrhea DNA probe, direct 4. Second trimester ([facility]) Z34.92 5. 18 weeks gestation of ([facility]) Z3A.18 POCT urinalysis dipstick manually resulted Alpha [...] behalf of: SPIKE Guzman documented in this encounterSouthPointe HospitalJirlziqrav25-86-4236 History of Present illness Narrative* Shania Antunez [...] disorder without psychotic features without prior episode ([facility]) 12/30/2023 Exercise-induced asthma 12/30/2023 Patellofemoral syndrome [...] nursing note reviewed. Exam conducted with a photograph retoucher present. Vitals: Estimated body mass index is [...] or undercooked meat, and stay away from [facility]. Patient has been consulted regarding any [...] of: Shania Antunez DO documented in this encounterSouthPointe HospitalWxxhjvwvca74-01-3371 History of Present illness Narrative* Jose Antonio Hernandes NP - 04/05/2025 11:00 AM EDT Images from the original note were not included. Subjective Patient ID: Danette Ayala is a 19 y.o. female who presents for jaw/ ear pain Danette presents today for left sided ear/ jaw [...] your allergy medication. You reported that the JIRA ADMINISTRATOR said you could take zyrtec for your allergies. Continue on this medication. The medication should help with the fluid in the inner ear. No follow-ups on file. documented in this encounterSouthPointe HospitalIignyjhxnh89-31-3523 History of Present illness Narrative* Heather Savage, ADELE - 03/10/2025 1:30 PM EDT Reason for [...] or undercooked meat, and stay away from [facility]. Patient has also been advised to [...] by: Heather Savage LPN documented in this encounterSouthPointe HospitalDceaaksllm63-39-8940 History of Present illness Narrative* Adela Zamarripa [...] disorder without psychotic features without prior episode ([facility]) 12/30/2023 Exercise-induced asthma ([facility]) 12/30/2023 Patellofemoral syndrome of right knee [...] nursing note reviewed. Exam conducted with a photograph retoucher present. Vitals: Estimated body mass index is [...] to be scheduled for Dx lap with poss ALBERTO Knight, Documented by Adela Zamarripa LPN on [...] single episode, 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) ([facility]) Otalgia of both ears documented in this encounter [facility] Healthcare[facility]* Diagnosis First trimester state, incidental 12 weeks gestation of Urinary tract infection without hematuria, site unspecified Other iron deficiency anemia documented in this encounter [facility]* Diagnosis Screening, , for anatomic survey ([facility]) Encounter for anatomic survey STD exposure Vaginal discharge Leukorrhea, not specified as infective Second trimester ([facility]) state, incidental 18 weeks gestation of ([facility]) documented [facility] this encounter [facility]* Diagnosis 22 weeks gestation of ([facility]) Second trimester ([facility]) state, incidental Diabetes mellitus screening Screening for diabetes mellitus documented in this encounter [facility]* Diagnosis Cystitis- Primary Unspecified cystitis 26 weeks gestation of ([facility]) Second trimester ([facility]) state, incidental Gastroesophageal reflux in ([facility]) documented in this encounter [facility]* Diagnosis Anemia, unspecified type- Primary 28 weeks gestation of ([facility]) Third trimester ([facility]) state, incidental Elevated glucose [...] and content) DATE CREATED AUTHOR 01/04/2022 [facility] DATE CREATED AUTHOR AUTHOR'S ORGANIZ ATION 08/27/2025 [facility] Care Teams (unrecognized sec tion and content) Team MemberRelationshipSpecialtyStart DateEnd Date Eliana Marquis MD [address] [facility] [address] [place] [address] PCP - [facility]03/04/23 Jose Antonio Hernandes MIXER AND BLENDER [address] [facility] [address] [place] [address] [facility] - [facility]07/27/24Team MemberRelationshipSpecialtyStart DateEnd Date Eliana Marquis MD [address] [facility] [address] [place] [address] [facility]03/04/23 Jose Antonio Hernandes MIXER [employer] BLENDER [address] [facility] [address] [place] [address] [facility]07/27/24Team MemberRelationshipSpecialtyStart DateEnd Date Eliana Marquis MD [address] [facility] [address] [place] [address] PCP [facility]03/04/23Team MemberRelationshipSpecialtyStart DateEnd Date Eliana Marquis MD [address] [place] [address] PCP [facility]03/04/23 Jose Antonio Hernandes, MIXER AND BLENDER [address] [place] [address] [facility]07/27/24Team MemberRelationshipSpecialtyStart DateEnd Date Eliana Marquis MD [address] [place] [address] [facility]03/04/23 Jose Antonio Hernandes, MIXER AND BLENDER [address] [place] [address] [facility]07/27/24Team MemberRelationshipSpecialtyStart DateEnd Date Eliana Marquis MD [address] [place] [address] [facility]03/04/23 Jose Antonio Hernandes, MIXER AND BLENDER [address] [place] [address] [facility]07/27/24Team MemberRelationshipSpecialtyStart DateEnd Date Eliana Marquis MD [address] [place] [address] [facility]03/04/23 Jose Antonio Hernandes, MIXER AND BLENDER [address] [place] [address] [facility] - [facility]07/27/24Team MemberRelationshipSpecialtyStart DateEnd Date Eliana Marquis MD [address] [place] [address] PCP - [facility]03/04/23 Jose Antonio Hernandes NP [address] [place] [address] [facility]07/27/24Team MemberRelationshipSpecialtyStart DateEnd Date Eliana Marquis MD [address] [place] [address] PCP [facility]03/04/23 Jose Antonio Hernandes, MIXER AND BLENDER [address] [place] [address] [facility]07/27/24Team MemberRelationshipSpecialtyStart DateEnd Date Eliana Marquis MD [address] [place] [address] PCP [facility]03/04/23Team MemberRelationshipSpecialtyStart DateEnd Date Eliana Marquis MD [address] [place] [address] PCP [facility]03/04/23Team MemberRelationshipSpecialtyStart DateEnd Date Eliana Marquis MD [address] [place] [address] [facility]03/04/23Team MemberRelationshipSpecialtyStart DateEnd Date Eilana Marquis MD [address] [place] [address] PCP - GeneralFamily Medicine03/04/23Team MemberRelationshipSpecialtyStart DateEnd Date Eliana Marquis MD [address] [place] [address] PCP - GeneralFamily Medicine03/04/23Team MemberRelationshipSpecialtyStart DateEnd Date Eliana Marquis MD [address] [place] [address] PCP - GeneralFamily Medicine03/04/23Team MemberRelationshipSpecialtyStart DateEnd Date Eliana Marquis MD [address] [place] [address] PCP - GeneralFamily Medicine03/04/23Team MemberRelationshipSpecialtyStart DateEnd Date Eliana Marquis MD [address] [place] [address] PCP - GeneralFamily Medicine03/04/23Team MemberRelationshipSpecialtyStart DateEnd Date Eliana Marquis MD [address] [place] [address] PCP - GeneralFamily Medicine03/04/23 Jose Antonio Hernandes, MARION [address] [place] [address] PCP - [facility]10///Team MemberRelationshipSpecialtyStart DateEnd Date Eliana Marquis MD [address] [facility] [address] [place] [address] PCP - [facility]03/04/23Te MemberRelationshipSpecialtyStart DateEnd Date Eliana Marquis MD [address] [facility] [address] [place] [address] PCP - [facility]03/04/23Te MemberRelationshipSpecialtyStart DateEnd Date Eliana Marquis MD [address] [facility] [address] [place] [address] PCP - [facility]03/04/23 Reason for Visit (unrecogniz ed section [...] BE BASED ON THE PRIMARY CLINICAL RECORDS. [facility] [employer] [facility]. provides no warranty or guarantee of the accuracy or completeness of information in this document.
[2025-09-07 11:54] LABS: Ferritin 6.0 ng/mL (8.0-252.0)
[2025-09-08 12:09] LABS: Transferrin 369 mg/dL (192-364)
== END 2025-09-07 09:47 | disposition home or self-care (01) ==
LOC: LAB 09:47
PROVIDERS: PCP Family Medicine; Visit Provider Nurse Practitioner Family
DX: O99.019 Anemia complicating pregnancy, unspecified trimester (principal)
CPT/HCPCS: 36415; 82728; 84466

== ENCOUNTER 2025-09-20 19:30 | Outpatient (REF) | payer OTHER, SELFPAY ==
--- OUTSIDE RECORDS SUMMARY | 2024-08-16 09:00 | XMS_ITS ---
Author Organization [facility] Address [address] [place] [address] Care Team Providers Care City Carrier Name Role Phone Bethany Wells Primary Care Provider Charlee Lawrence Unavailable [phone] REASON FOR VISIT 6 MONTHS Encounters Encounter Location Date Provider Diagnosis [facility] [address] [place] [address] 08/16/2024 Charlee Keithgamaliel Plan Of Treatment No Information Progress Notes * BDOB:11/2004 (20 yo F)Acc No.[id number]:08/16/2024 Patient:?LUCY :?Charlee LawrenceDOB:2005???Age:18 Y???Sex: FemaleDate:08/16/2024hone:[phone]:SUDHEER YU [id number]:Bethany Guerrero Subjective: * Chief Complaints: * 6 MONTHS * Electronic signature of Charlee Lawrence on 09/20/2025 at 01:53 PM ESTSign off status: Pending * Provider: Dru Lawrence Date: Generated for Printing/Faxing/eTransmitting on:?09/20/2025 01:53 PM EST
--- OUTSIDE RECORDS SUMMARY | 2025-04-27 05:00 | XMS_ITS ---
Author Organization [facility] Address [address] [place] [address] Care Team Providers Care Stations Superintendent Name Role Phone Bethany Wells Primary Care Provider [phone] Dr. Adolfo Reagan [facility] [phone] REASON FOR VISIT JAW AND TOOTH PAIN Encounters Encounter Location Date Provider Diagnosis [facility] [address] [place] [address] 04/27/2025 Adolfo Reagan Plan Of Treatment No Information Progress Notes * BDOB:11/2004 (20 yo F)Acc No.[id number]:04/27/2025 Patient:? :Yelena Reagan DDSDOB:2005???Age:19 Y???Sex: FemaleDate:04/27/2025Phone:[phone]:[id number]:Bethayn Guerrero Subjective: * Chief Complaints: * J AW AND TOOTH PAIN Billing Information: * Procedure Codes: * Electronic signature of Dr. Adolfo Reagan , [facility], [id number] on 09/20/2025 at 01:53 PM ESTSign off status: Pending * Provider: Parrish Reagan DDS Date: 0 04/27/2025 Generated for Printing/Faxing/eTransmitting on:?09/20/2025 01:53 PM EST
--- OUTSIDE RECORDS SUMMARY | 2025-05-10 05:00 | XMS_ITS ---
Author Organization [facility] Address [address] [place] [address] Care Team Providers Care Strand Buncher Fine Wire Name Role Phone Bethany Wells Primary Care Provider [phone] Dr. Adolfo Reagan [facility] [phone] REASON FOR VISIT JAW AND TOOTH PAIN Encounters Encounter Location Date Provider Diagnosis [facility] [address] [place] [address] 05/10/2025 Adolfo Reagan Plan Of Treatment No Information Progress Notes * BDOB:11/2004 (20 yo F)Acc No.[id number]:05/10/2025 Patient:? :Yelena Reagan DDSDOB:2005???Age:19 Y???Sex: FemaleDate:05/10/2025Phone:[phone]:SUDHEER YU [id number]:Bethany Guerrero Subjective: * Chief Complaints: * J AW AND TOOTH PAIN * Electronic signature of Dr. Adolfo Reagan , [facility], [id number] on 09/20/2025 at 01:53 PM ESTSign off status: Pending * Provider: Parrish Reagan DDS Date: 0 05/10/2025 Generated for Printing/Faxing/eTransmitting on:?09/20/2025 01:53 PM EST
--- OUTSIDE RECORDS SUMMARY | 2025-09-13 09:20 | XMS_ITS | Encounter Summary ---
Author Organization [facility] Address [address] [facility] [place] [address] Care Team Providers Care Banquet Cook Name Role Phone Eliana Flanagan MD Primary Care Provider [phone] Reason for Visit * ReasonCommentsRoutine Visit Encounter Details DateTypeDepartmentCare Team (Latest Contact Info)Vfmucirvlqw48/18/2025 9:20 AM ESTRoutine [facility] [address] [place] [phone] Alex Antunez DO [address] [place], [facility]11 Third trimester ([facility]); 35 weeks gestation of ([facility]); Hematuria, gross Social History Tobacco UseTypesPacks/DayYears UsedDateSmoking Tobacco: NeverPassive Smoke Exposure: NeverSmokeless Tobacco: NeverAlcohol UseStandard Drinks/WeekComments Never0 (1 standard drink = 0.6 oz pure alcohol)PHQ-2AnswerDate RecordedPatient Health Questionnaire-2 Ocnsy713Estimated Date of Delivery JiokafemLre03/19/2025Based on last menstrual period of 01/07/2025Sex and Gender InformationValueDate RecordedSex Assigned at BirthNot on fileLegal SexFemale 01/08/2023 6:51 PM EDTGender IdentityNot on fileSexual OrientationNot on file documented as of this encounter Last Filed Vital Signs Vital SignReadingTime TakenCommentsBlood Gudpxmdc575/6209/13/2025 9:38 AM EST Pulse--Temperature--Respiratory Rate--Oxygen Saturation--Inhaled Oxygen Concentration--Tucqxl38.7 kg (169 lb)09/13/2025 9:38 AM ESTHeight--Body Mass Index29.01004/05/2025 11:07 AM EDTdocumented in this encounter Progress Notes * Adela Zamarripa, DOOR TO DOOR FUNDRAISING COLLECTOR - 09/13/2025 9:20 AM EST Reason for Appointment: Patient ID: Veronica Blas is a 20 y.o. female who presents for Routine Visit Patient presents today for Return OB appointment. MEDICATIONS Current Outpatient Medications Medication Instructions diphenhydrAMINE (BENADRYL) 50 mg, Nightly PRN omeprazole (PRILOSEC) 20 mg, Oral, Daily before [...] Size of fetus inconsistent with dates, antepartum ([facility]) 08/10/2025 Resolved Ambulatory Problems Diagnosis Date [...] nursing note reviewed. Exam conducted with a shipping checker present. Vitals: Estimated body mass index is 29.01 kg/m?? as calculated from the following: Height as of 04/05/25: 5' 4 . Weight as of this encounter: 169 lb. BP: 112/62 Patient's last menstrual period was 01/07/2025. Assessment/Plan ICD-10-CM 1. Third trimester ([facility]) Z34.93 2. 35 weeks gestation of ([facility]) Z3A.35 POCT urinalysis dipstick manually resulted Assessment/Plan Return OB: Patient presents today for a routine obstetrics appointment. Patient is currently 35w4d . Patient states she is doing well but has complaints of being tired due to current . Patient has verbalizes frequent movement. labor precautions was discussed/given and patient was instructed to perform kick counts three times a day. Next week will obtain GBS culture. Orders Placed This Encounter Procedures POCT urinalysis dipstick manually resulted Follow Up: Patient is to return to office in 1 week for routine OB appointment. Documented by Adela Zamarripa LPN on behalf of: Alex Antunez DO documented in this encounter Plan of Treatment DateTypeDepartmentCare Team (Latest Contact Info)Yewtjoxycst88/02/2025 10:00 AM ESTAncillary Procedure [facility] [address] [place] [id number] 09/27/2025 11:00 AM ESTRoutine [facility] [address] [place] [phone] Alex Antunez DO [address] [place], [place] [id number] documented as of this encounter Procedures Procedure NamePriorityDate/TimeAssociated DiagnosisCommentsPOCT URINALYSIS YVHASHPELubupeh12/18/2025 9:38 AM EST 35 weeks gestation of ([facility]) documented in this encounter Results * (ABNORMAL) POCT urinalysis dipstick manually resulted (09/13/2025 9:38 AM EST) ComponentValueRef RangeTest MethodAnalysis TimePerformed AtPathologist SignatureColor, UAYellowClarity, UAClearGlucose, UANegativeNegative - 2000(110) ++++ mg/dLBilirubin, UANegativeNegative - 4(70) +++ mg/dLKetones, UA NegativeNegative - 160(16) ++++ mg/dLSpec Grav, UA1.0151 - 1.03Blood, UA PositiveNegative - 50 Tarun/mcLpH, UA6.05 - 9Protein, UATraceNegative - 2000(20) ++++ mg/dLUrobilinogen, UA1.00.2 - 12 mg/dLLeukocytes, UA3+Negative - 500+++ Joelle/mcLNitrite, UANegativeNegative - PositiveSpecimen (Source)Anatomical Location / LateralityCollection Method / VolumeCollection TimeReceived Time Urine09/13/2025 9:38 AM EST Narrative Authorizing ProviderResult TypeResult StatusCorey Tulio DOPOINT OF CARE TEST ENTER/EDIT ORDERABLESFinal Result documented in this encounter Visit Diagnoses Diagnosis Third trimester ([facility]) state, incidental 35 weeks gestation of ([facility]) Hematuria, gross Gross hematuria documented in this encounter Care Teams Team MemberRelationshipSpecialtyStart DateEnd Date Eliana Flanagan MD [address] [facility] [address] [place] [address] PCP - GeneralFamily Medicine03/04/23documented as of this encounter
--- OUTSIDE RECORDS SUMMARY | 2025-09-20 14:00 | XMS_ITS | Encounter Summary ---
Author Organization [facility] Address [address] [facility] [place] [address] Care Team Providers Care Nuisance Wildlife Specialist Name Role Phone Eliana Flanagan MD Primary Care Provider [phone] Reason for Visit * ReasonCommentsRoutine Visit Encounter Details DateTypeDepartmentCare Team (Latest Contact Info)Vmswtypqelc87/25/2025 2:00 PM ESTRoutine [facility] [address] [place] [phone] Munira Yu PA [address] [place], [place] [address] Third trimester ([facility]); 36 weeks gestation of ([facility]); Poor growth affecting management of mother in third trimester, single or unspecified fetus ([facility]) Social History Tobacco UseTypesPacks/DayYears UsedDateSmoking Tobacco: NeverPassive Smoke Exposure: NeverSmokeless Tobacco: NeverAlcohol UseStandard Drinks/WeekComments Never0 (1 standard drink = 0.6 oz pure alcohol)PHQ-2AnswerDate RecordedPatient Health Questionnaire-2 Jpmhx089Estimated Date of Delivery VfwlbctxAxn63/19/2025Based on last menstrual period of 01/07/2025Sex and Gender InformationValueDate RecordedSex Assigned at BirthNot on fileLegal SexFemale 01/08/2023 6:51 PM EDTGender IdentityNot on fileSexual OrientationNot on file documented as of this encounter Last Filed Vital Signs Vital SignReadingTime TakenCommentsBlood Cbjlisim445/6009/20/2025 2:28 PM EST Pulse--Temperature--Respiratory Rate--Oxygen Saturation--Inhaled Oxygen Concentration--Xwajyk90.2 kg (172 lb 8 oz)09/20/2025 2:28 PM ESTHeight--Body Mass Index29.6106 11:07 AM EDTdocumented in this encounter Progress Notes * SPIKE Guzman - 09/20/2025 2:00 PM EST Reason for Appointment: Patient ID: Roopa is a 20 y.o. female who presents for Routine Visit Patient presents today for Return OB appointment. MEDICATIONS Current Outpatient Medications Medication Instructions cephalexin (KEFLEX) 500 mg, Oral, 3 times daily diphenhydrAMINE (BENADRYL) 50 mg, Nightly PRN omeprazole [...] Size of fetus inconsistent with dates, antepartum ([facility]) 08/10/2025 Resolved Ambulatory Problems Diagnosis Date Noted [...] Exam Constitutional: Appearance: Normal appearance. She is well-developed and normal weight. HENT: Head: Normocephalic. Cardiovascular: Rate and Rhythm: Normal rate and regular rhythm. Pulses: Normal pulses. Pulmonary: Effort: Pulmonary effort is normal. Breath sounds: Normal breath sounds. Abdominal: General: Bowel sounds are normal. There is no distension. Palpations: Abdomen is soft. Tenderness: There is no abdominal tenderness. There is no guarding or rebound. Musculoskeletal: General: No swelling. Normal range of motion. Right lower leg: No edema. Left lower leg: No edema. Neurological: General: No focal deficit present. Mental Status: She is alert and oriented to person, place, and time. Skin: General: Skin is warm and dry. Psychiatric: Mood and Affect: Mood normal. Behavior: Behavior normal. Thought Content: Thought content normal. Judgment: Judgment normal. Vitals and nursing note reviewed. Exam conducted with a dynamite packing machine operator present. Vitals: Estimated body mass index is 29.61 kg/m?? as calculated from the following: Height as of 04/05/25: 5' 4 . Weight as of this encounter: 172 lb 8 oz. BP: 128/60 Patient's last menstrual period was 01/07/2025. Assessment/Plan ICD-10-CM 1. Third trimester ([facility]) Z34.93 POCT urinalysis dipstick manually resulted CULTURE, GROUP B STREP WITH SUSCEPTIBLITY CULTURE, GROUP B STREP WITH SUSCEPTIBLITY 2. 36 weeks gestation of ([facility]) Z3A.36 3. Poor growth affecting management of mother in third trimester, single or unspecified fetus([facility]) O36.5922 US OB follow up transabdominal approach Assessment/Plan Patient is doing well but has complaints of being tired and having maternal discomfort due to . Patient verbalized frequent movement and was instructed to perform kick counts three times per day. labor precautions were given, LARC consent was signed/declined, and GBS was obtained. Cervical check was performed and patient is 0cm dilated. Orders Placed This Encounter Procedures US OB follow up transabdominal approach CULTURE, GROUP B STREP WITH SUSCEPTIBLITY POCT urinalysis dipstick manually resulted Follow Up: Patient is to return to office in 1 week for routine OB appointment Documented by Hilaria Keys LPN on behalf of: SPIKE Guzman documented in this encounter Plan of Treatment DateTypeDepartmentCare Team (Latest Contact Info)Rrrhfjbhzcb11/02/2025 10:00 AM ESTAncillary Procedure [facility] [address] [place] [phone] 09/27/2025 11:00 AM ESTRoutine [facility] [address] [place] [phone] Alex Antunez DO [address] [place] [address] NameTypePriorityAssociated DiagnosesOrder ScheduleCULTURE, GROUP B STREP WITH SUSCEPTIBLITYLabRoutine Third trimester ([facility]) Expected: 09/20/2025, Expires: 09/20/2026US OB follow up transabdominal approach ImagingRoutine Poor growth affecting management of mother in third trimester, single or unspecified fetus ([facility]) Expected: 09/20/2025, Expires: 01/18/2026documented as of this encounter Procedures Procedure NamePriorityDate/TimeAssociated DiagnosisCommentsPOCT URINALYSIS OTRHZXKAMwjdwcx94/25/2025 2:32 PM EST Third trimester ([facility]) documented in this encounter Results * (ABNORMAL) POCT urinalysis dipstick manually resulted (09/20/2025 2:32 PM EST) ComponentValueRef RangeTest MethodAnalysis TimePerformed AtPathologist SignatureColor, UAYellowClarity, UAClearGlucose, UANegativeNegative - 1999(110) ++++ mg/dLBilirubin, UANegativeNegative - 4(70) +++ mg/dLKetones, UA NegativeNegative - 160(16) ++++ mg/dLSpec Grav, UA1.0101 - 1.03Blood, UA NegativeNegative - 50 Tarun/mcLpH, UA6.55 - 9Protein, UANegativeNegative - 2000(20) ++++ mg/dLUrobilinogen, UA0.20.2 - 12 mg/dLLeukocytes, UAPositive Negative - 500+++ Joelle/mcLComment:1+Nitrite, UANegativeNegative - Positive Specimen (Source)Anatomical Location / LateralityCollection Method / Volume Collection TimeReceived TsfkPqnkb66/25/2025 2:32 PM EST Narrative Authorizing ProviderResult TypeResult StatusMountain View [facility] TEST ENTER/EDIT ORDERABLESFinal Result documented in this encounter Visit Diagnoses Diagnosis Third trimester ([facility]) state, incidental 36 weeks gestation of ([facility]) Poor growth affecting management of mother in third trimester, single or unspecified fetus ([facility]) documented in this encounter Care Teams Team MemberRelationshipSpecialtyStart DateEnd Date Elaina Flanagan MD [address] [facility] [address] [place] [address] PCP - GeneralFamily Medicine03/04/23documented as of this encounter
--- OUTSIDE RECORDS SUMMARY | 2025-09-20 19:34 | XMS_ITS | CCD ---
Author Organization [facility] CliniSyme Care Team Providers Care Ward Assistant Name Role Phone BENITEZ, DR MUNOZ Primary [...] Eliana Marquis MD Primary Care Provider Cecilio CYBER TRANSPORT SYSTEMS SPECIALIST, Jose Antonio Neri Unavailable Cecilio CYBER TRANSPORT SYSTEMS SPECIALIST, Jose Antonio Neri Unavailable JOSE ANTONIO HERNANDES Attending Unavailable SHANIA ANTUNEZ Attending Unavailable MUNIRA AGRCIA Attending Unavailable MUNIRA GARCIA Referring Unavailable SHANIA ANTUNEZ Attending Unavailable SHANIA ANTUNEZ Attending Unavailable SHANIA ANTUNEZ Attending Unavailable DARLENE OLMSTEAD Attending Unavailable DARLENE OLMSTEAD Referring Unavailable MUNIRA GARCIA Attending Unavailable MUNIRA GARCIA Attending Unavailable Allergies Allergy ClassificationReported Allergen(s)Allergy TypeDate of OnsetReaction(s) Facility (1 source)PenicillinsDrug allergy (disorder)73-65-7783Xia [facility] Repository (20 sources)PenicillinsDrug Zktddkc93-31-7786NibtxkpPIDV Healthcare Medications Current Medications MedicationDrug Class(es)DatesSig (Normalized)Sig (Original)[id number] 200 actuat albuterol 0.09 mg/actuat metered dose inhaler (9 sources)beta2-Adrenergic Agonist End: 04-53-8785unqe 2 puff(s) by inhalation every four hours for wheezing albuterol HFA (ProAir HFA) 90 mcg/act inhaler Inhale 2 puffs every 4 (four) hours if needed for wheezing or shortness of breath 04/05/2025 Discontinued (Other)cephalexin 500 mg oral capsule (4 sources)Cephalosporin AntibacterialStart: 08-25-2025 End: 13-33-7196mrxt 1 capsule by mouth in the morning, [...] 09/01/2025 ActivediphenhydrAMINE hydrochloride 50 mg oral tablet (19 sources)Histamine-1 Receptor AntagonistdiphenhydrAMINE (BENADryl) 50 MG tablet Take 50 mg by mouth as needed at bedtime for itching Activefexofenadine hydrochloride 180 mg oral tablet (9 sources)Histamine-1 Receptor Antagonist End: 43-79-0023lzxf 1 tablet by mouth once dailyfexofenadine ([facility] Allergy Relief) 180 MG tablet Take 180 mg by mouth Daily 04/05/2025 Discontinued (Other) magnesium oxide 400 mg oral tablet (5 sources)Start: 03-10-2025 End: 38-97-8485lscw 1 tablet by mouth once dailymagnesium oxide (Mag-Ox) 400 MG tablet Indications: headache in first trimester Take 1 tablet (400 mg) by mouth Daily 30 tablet 11 03/10/2025 04/05/2025 Discontinued (Other) nitrofurantoin, macrocrystals 25 mg / nitrofurantoin, monohydrate 75 mg oral capsule (5 sources)Nitrofuran AntibacterialStart: 07-13-2025 End: 15-26-1662xmrw 1 capsule by mouth in the morningnitrofurantoin, macrocrystal-monohydrate, (Macrobid) 100 MG capsule Indications: Cystitis Take 1 capsule (100 mg) by mouth in the morning and 1 capsule (100 mg) before bedtime. Do all this for 7 days. 14 capsule 07/13/2025 07/20/2025 ActiveStart: 04-06-2025 End: 86-50-5793grea 1 capsule by mouth in the morningnitrofurantoin, macrocrystal-monohydrate, (Macrobid) 100 MG capsule Indications: Urinary tract infection without hematuria, site unspecified Take 1 capsule (100 mg) by mouth in the morning and 1 capsule (100 mg) before bedtime. Do all this for 7 days. 14 capsule 04/06/2025 04/13/2025 ActiveStart: 03-10-2025 End: 77-65-0190rzfg 1 capsule by mouth in the morningnitrofurantoin, macrocrystal-monohydrate, (Macrobid) 100 MG capsule Indications: UTI symptoms Take 1 capsule (100 mg) by mouth in the morning and 1 capsule (100 mg) before bedtime. Do all this for 7 days. 14 capsule 03/10/2025 03/17/2025 Active omeprazole 20 mg delayed release oral capsule (16 sources)Proton Pump InhibitorStart: 07-13-2025 End: 31-03-8409loam 1 capsule by mouth before mealtimeomeprazole (PriLOSEC) [address] capsule Indications: Gastroesophageal Reflux Disease , Heartburn Take 1 capsule (20 mg) by mouth in the morning. Take before meals. Do not crush or chew. 30 capsule 3 07/13/2025 Activeondansetron 4 mg disintegrating oral tablet (8 sources)Serotonin-3 Receptor AntagonistStart: 03-10-2025 End: 61-83-9227ijxd 1 tablet by mouth every six hours for nauseaondansetron ODT (Zofran-ODT) 4 MG disintegrating tablet Indications: Nausea and vomiting in Take 1 tablet (4 mg) by mouth every 6 (six) hours if needed for nausea or vomiting 30 tablet 2 03/10/2025 04/09/2025 Activepolysaccharide iron complex 391 mg oral capsule (12 sources)Start: 07-27-2025 End: 30-77-9547javw 1 capsule by mouth once dailyiron polysaccharides (ProFe) 391.3 (180 Fe) MG capsule Indications: Anemia, unspecified type Take 1capsule (391.3 mg) by mouth Daily 30 capsule 6 07/27/2025 08/26/2025 ActiveStart: 04-06-2025 End: 19-55-3292krpk 1 capsule by mouth once dailyiron polysaccharides (ProFe) 391.3 (180 Fe) MG capsule Indications: Other iron deficiency anemia Take 1 capsule (391.3 mg) by mouth Daily 30 capsule 6 04/06/2025 05/06/2025 Active MV-Min-Fe Fum-FA-DHA ( 1 PO) (19 sources) MV-Min-Fe Fum-FA-DHA ( 1 PO) Take 1 tablet by mouth Daily Active Completed/Discontinued Medications MedicationDrug Class(es)DatesSig (Normalized)Sig (Original)FLUoxetine 10 mg oral capsule (5 sources)Serotonin Reuptake InhibitorStart: 11-18-2022 End: 98-26-2925gwut 1 capsule by mouth once dailyFLUoxetine (PROzac) 10 MG capsule Take 1 capsule by mouth 1 (one) time each day at the same time 03/10/2025 Discontinued (Other)fluticasone propionate 0.05 mg/actuat metered dose nasal spray (5 sources)Corticosteroid End: 30-86-6715mntu 1 spray(s) nasal route once dailyfluticasone (Flonase) 50 MCG/ACT nasal spray Administer 1 spray into each nostril 1 (one) time eachday at the same time 03/10/2025 Discontinued (Other)24 hr metFORMIN hydrochloride 500 mg extended release oral tablet (5 sources)BiguanideStart: 06-07-2024 End: 86-42-6007smty 1 tablet by mouth every twenty-four hours at mealtime metFORMIN XR (Glucophage-XR) 500 MG 24 hr tablet Indications: PCOS (polycystic ovarian syndrome) Take 1 tablet (500 mg) by mouth in the evening. Take with meals Do not crush, chew, or split. 30 tablet 11 06/07/2024 03/10/2025 Discontinued (Other) Problems Problem ClassificationProblemDateDocumented DateEpisodic/ChronicAbdominal pain (10 sources)Pelvic and perineal pain; Translations: [Unspecified abdominal pain] Onset: 48-77-5970UjjsksqzUipmnj (20 sources)Exercise-induced asthma; Translations: [Exercise induced bronchospasm]Onset: 903112-38-5419VyrtkfdMvuscuohsm and other anemia (2 sources)Iron deficiency anemia; Translations: [Other iron deficiency anemias] 68-30-5458RdqkerpjNimfqmaams and other anemia (2 sources)Anemia; Translations: [Anemia, unspecified]53-91-9909XylqggvoYbxtackf mellitus without complication (2 sources)Abnormal glucose tolerance test; Translations: [Other abnormal glucose]86-01-3015GdddkusvIylnpjhys of teeth and jaw (2 sources)Jaw pain; Translations: [Jaw pain]50-64-4771QawrvbylRfolmpxthggto congenital anomalies (1 source)Bicornate uterus; 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]Onset: 10-18-2021 ChronicGenitourinary symptoms and ill-defined conditions (1 source)Urinary symptoms ; Translations: [Unspecified symptoms and signs involving the genitourinary system]67-54-7784XpriceooIreqeqfrrjcog and screening for infectious disease (2 sources)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; Translations: [Contact with and (suspected) exposure to infections with a predominantly sexual mode of transmission]24-50-5270UcupkpnmMeabw disorders and dislocations; trauma-related (20 sources)Patellofemoral syndrome of right knee; Translations: [Patellofemoral disorders, right knee]Onset: 285524-15-9207LjhbgewSthffbakg disorders (1 source)Missed period; Translations: [Irregular menstruation, unspecified] 19-23-2874XokzymbXbii disorders (20 sources)Severe major depression, single episode, without psychotic features; Translations: [Major depressive disorder, single episode, severe without psychotic features]Onset: 864644-97-7109KgcilugTywpu complications of (1 source)Vomiting of , unspecified; Translations: [Unspecified vomiting of , unspecified as to episode of care or not applicable] 37-07-9537OqbdvdnlZvkyk complications of (1 source)Headache; Translations: [Other specified related conditions, first trimester]41-24-5240LyeyhtdnQjyrd complications of (2 sources)Gastroesophageal reflux disease in ; Translations: [Diseases of the digestive system complicating , unspecified trimester] 57-67-5577XbjbkiqeWfswh complications of (11 sources) size does not accord with dates; Translations: [Uterine size- date discrepancy, unspecified trimester]Onset: 104397-76-3883DlqanpspSqzik ear and sense organ disorders (2 sources)Bilateral earache; Translations: [Otalgia, bilateral]04-05-2025 EpisodicOther endocrine disorders (20 sources)Polycystic ovary syndrome; Translations: [Polycystic ovarian syndrome]Onset: 375641-21-2272YxprazaTpell endocrine disorders (2 sources)Disorder of endocrine system; Translations: [Endocrine disorder, unspecified]98-75-6148XckqsllqOvjrg female genital disorders (2 sources)Pain in female genitalia on intercourse; Translations: [Unspecified dyspareunia]17-49-0490QqbtlrlIjjwp female genital disorders (2 sources)Vaginal discharge; Translations: [Other specified noninflammatory disorders of vagina]03-59-6345PmacewseCkpnw and delivery including normal (16 sources); Translations: [Encounter for supervision of normal , unspecified, unspecified trimester]20-67-4519JrtaywwwTytnr screening for suspected conditions (not mental disorders or infectious disease) (4 sources)Patient encounter status; Translations: [Encounter for other specified screening]93-30-9892UshiftgiBrqpbuj cyst (5 sources)Unspecified ovarian cyst, left side; Translations: [UNSPECIFIED OVARIAN CYST LEFT SIDE]Onset: 57-42-0309UffqdzmyGuzkmlsm codes; unclassified (2 sources)Gestation period, 12 weeks; Translations: [12 weeks gestation of ]63-27-8596CdyrqzqoDdmnfqeq codes; unclassified (2 sources)Gestation period, 18 weeks; Translations: [18 weeks gestation of ]47-22-9382ZqbpqxbyEjwogjcp codes; unclassified (2 sources)Gestation period, 22 weeks; Translations: [22 weeks gestation of ]90-01-7460EcafftpzXjzxifcm codes; unclassified (2 sources)Gestation period, 26 weeks; Translations: [26 weeks gestation of ]47-04-8846ZtpaehasNokmlfls codes; unclassified (2 sources)Gestation period, 28 weeks; Translations: [28 weeks gestation of ]00-75-9236VqeckgwkJzqrutjz codes; unclassified (2 sources)Gestation period, 30 weeks; Translations: [30 weeks gestation of ]54-05-7276SufujidwFebvzemi codes; unclassified (2 sources)Gestation period, 32 weeks; Translations: [32 weeks gestation of ]03-09-1189CblynsxxYurkoug tract infections (6 sources)Urinary tract infectious disease; Translations: [Urinary tract infection, site not specified]26-25-9114Hunphghe Results Test NameValueInterpretationReference RangeFacilityCCF FERRITINon 09-07-2025 Ferritin [Mass/Vol]6.0 ng/mLLow8.0 - 252.0 ng/mLNDRUMRIGHT REGIONAL HOSPITAL – DRUM[facility] HealthcareInterpretation and review of laboratory resultsAbnoBryn Mawr Rehabilitation HospitalCLINISYNCNDRUMRIGHT REGIONAL HOSPITAL – DRUMRIGHT Healthcare MLR HEMOGLOBIN A1Con 36-81-9596Gaeokkl [Mass/Vol]94 mg/dLNONM StokcyzpngGlA2e (Bld) [Mass fraction]4.9 %4.5 - 6.2 %[facility] HealthcareComment on above:ADA RECOMMENDED LIMIT 4.0 - 6.0 ADA THERAPEUTIC TARGET < 7.0 ACTION SUGGESTED > 7.0 CLINISYNCNONM HealthcareALL CBC WITH AUTO DIFFon 70-64-2626BTSHUVJHG ABSOLUTE AUTO0.0NONM HealthcareBasophils/100 WBC (Bld)0.3 %0.2 - 2.0 %[facility] Eosinophils/100 WBC (Bld)0.9 %0.9 - 7.0 %[facility] HealthcareErythrocyte distribution width (RBC) [Ratio]13.6 %11.0 - 15.0 %NOM HealthcareHematocrit (Bld) [Volume fraction]28.5 %Low36.0 - 48.0 %NOM HealthcareHemoglobin (Bld) [Mass/Vol]9.4 g/dLLow12.0 - 16.0 g/dLNOGolden Valley Memorial HospitalIMMATURE GRANULOCYTES ABS AUTO0.03NONM HealthcareImmature granulocytes/100 WBC (Bld)0.4 %0.0 - 0.5 %[facility] Interpretation and review of laboratory resultsAbMunson Healthcare [facility] LYMPHOCYTES ABSOLUTE AUTO1.0LowMissouri Delta Medical CenterLymphocytes/100 WBC (Bld)13.7 %Low 20.5 - 60.0 %[facility]H (RBC) [Entitic mass]26.1 pgLow26.7 - 34.[address]HC (RBC) [Mass/Vol]33.0 g/dL29.9 - 35.2 g/dLMercy Hospital St. LouisV (RBC) [Entitic vol]79.2 fLLow81.0 - 99.0 fLMissouri Delta Medical CenterMONOCYTES ABSOLUTE AUTO0.6 [facility] HealthcareMonocytes/100 WBC (Bld)7.3 %1.7 - 12.0 %[facility] NEUTROPHILS ABSOLUTE AUTO5.8[facility] CenterNeutrophils/100 WBC (Bld)77.4 %High 43.0 - 75.0 %[facility] CenterPlatelet mean volume (Bld) [Entitic vol]11.1 fL9.5 - 13.5 fLMissouri Delta Medical CenterTB EO #0.1NOMS [facility] CenterTB EIT418TCDBBarton [facility] Memorial Hospital RBC 3.60LowNOGolden Valley Memorial HospitalTB WBC7.5[facility] CenterCLINISYNCNShriners Hospitals for Children Urinalysis macro (dipstick) panel (U)on 88-60-8145Kkrobbvcp, UANegativeNegative - 4(70) +++ mg/dLNOMS HealthcareBlood, UANegativeNegative - 50 Tarun/mcLNOMS HealthcareClarity, UAClearNONM HealthcareColor, UAYellowNONM HealthcareGlucose, UANegativeNegative - 1999(110) ++++ mg/dLNONM HealthcareInterpretation and review of laboratory resultsAbnoBryn Mawr Rehabilitation HospitalKetones, UANegativeNegative - 160(16) ++++ mg/dLMOUNTAINSTAR [facility]ALTHCARE HealthcareLeukocytes, UA1+Negative - 500+++ Joelle/mcLNOMS HealthcareNitrite, UANegativeNegative - PositiveNOMS HealthcarepH, UA6.05 - 9 NOM HealthcareProtein, UATraceNegative - 2000(20) ++++ mg/dLNOMS HealthcareSpec Grav, UA1.0101 - 1.03NOMS HealthcareUrobilinogen, UA2.00.2 - 12 mg/dLNONM HealthcareNOMS HealthcareGLUCOSE TOLERANCE 3 HOURon 73-85-3544HQUDCQH TOLERANCE 3 HOURmg/dLNOMS HealthcareComment on above:GLU FAST 75 (<95) Col: 08/22/25 0844 GLU 1HR () Col: 08/22/25 0928 GLU 2HR () Col: 08/22/25 1028 GLU 3HR () Col: 08/22/25 1128 CLINISYNCNOMS HealthcareTBH UA (CLEAN/CATCH) ADMINISTRATIVE SERVICES DIRECTOR/MICRO IF IND.on 08-19-2025 BILIRUBIN URINENegativeNEGATIVENOMS HealthcareBLOOD URINENegativeNEGATIVENOMS [...] HealthcareCLINISYNCNOMS HealthcareUS OB FOLLOW UP TRANSABDOMINAL APPROACHon 84-09-1330SD OB FOLLOW UP TRANSABDOMINAL APPROACHFINDINGS: Comparison May [...] Delivery: 10/14/25 Gestational Age as of 07/13/2025: 31e9nDwwrsugamb macro (dipstick) panel (U)on 74-13-6627Sksrbrzjw, UANegativeNegative - 4(70) +++ mg/dLNOMS HealthcareBlood, UANegativeNegative [...] mg/dLNOMS HealthcareNOMS HealthcareUrinalysis macro (dipstick) panel (U)on 45-07-5497Ksrqkotam, UA NegativeNegative - 4(70) +++ mg/dLNOMS HealthcareBlood, UANegativeNegative - 50 Tarun/mcLNOMS HealthcareClarity, UAClearNOMS HealthcareColor, UAYellowNOMS HealthcareGlucose, UANegativeNegative - 1999(110) ++++ mg/dLNOMS Healthcare Interpretation and review of laboratory resultsNormalMissouri Delta Medical CenterKetones, UA NegativeNegative - 160(16) ++++ mg/dLMissouri Delta Medical CenterLeukocytes, UANegative Negative - 500+++ Joelle/mcLNOGolden Valley Memorial HospitalNitrite, UANegativeNegative - Positive NOM HealthcarepH, UA75 - 9NONM HealthcareProtein, UANegativeNegative - 2000(20) ++++ mg/dLMissouri Delta Medical CenterSpec Grav, UA1.0051 - 1.03NOGolden Valley Memorial HospitalUrobilinogen, UA2.00.2 - 12 mg/dLLee's Summit Hospital HealthcareALL CBC WITH AUTO DIFFon 03-48-8950HEKGUFYRA ABSOLUTE JPBW3EOPLMissouri Delta Medical CenterBasophils/100 WBC (Bld)0.3 %0.2 - 2.0 %[facility] CenterEosinophils/100 WBC (Bld)1.3 %0.9 - 7.0 %[facility] Erythrocyte distribution width (RBC) [Ratio]14.3 %11.0 - 15.0 %[facility] Hematocrit (Bld) [Volume fraction]32 %Low36.0 - 48.0 %[facility] CenterHemoglobin (Bld) [Mass/Vol]10.4 g/dLLow12.0 - 16.0 g/dLMissouri Delta Medical CenterIMMATURE GRANULOCYTES ABS AUTO0.03[facility] CenterImmature granulocytes/100 WBC (Bld)0.4 %0.0 - 0.5 % [facility] CenterInterpretation and review of laboratory resultsAbnoBryn Mawr Rehabilitation HospitalLYMPHOCYTES ABSOLUTE AGQD5VvxZDUX [facility] Medical CenterLymphocytes/100 WBC (Bld) 14 %Low20.5 - 60.0 %[facility] LouisH (RBC) [Entitic mass]26.2 pgLow26.7 - 34.0 pgMissouri Delta Medical CenterMCHC (RBC) [Mass/Vol]32.5 g/dL29.9 - 35.2 g/dLMissouri Delta Medical Center MCV (RBC) [Entitic vol]80.6 fLLow81.0 - 99.0 fLMissouri Delta Medical CenterMONOCYTES ABSOLUTE AUTO0.3NOGolden Valley Memorial HospitalMonocytes/100 WBC (Bld)4 %1.7 - 12.0 %[facility] NEUTROPHILS ABSOLUTE AUTO5.7NOGolden Valley Memorial HospitalNeutrophils/100 WBC (Bld)80 %High43.0 - 75.0 %[facility]OM[facility] HealthcarePlatelet mean volume (Bld) [Entitic vol]10.9 fL9.5 - 13.5 fLNOMS HealthcareTBH EO #0.1NOMS HealthcareTBH AXC544HGWA HealthcareTBH RBC3.97 LowNOMS HealthcareTBH WBC7.1NOMS HealthcareCLINISYNCNOMS HealthcareUrinalysis macro (dipstick) panel (U)on 26-48-5491Wntmagrxe, UANegativeNegative - 4(70) +++ mg/dLNOMS HealthcareBlood, UANegativeNegative [...] UA YellowNOMS HealthcareGlucose, UANegativeNegative - 2000(110) ++++ mg/dLNOMS HealthcareInterpretation and review of laboratory resultsNormalNOMS Healthcare Ketones, UANegativeNegative - 160(16) ++++ mg/dLNOMS HealthcareLeukocytes, UA NegativeNegative - 500+++ Joelle/mcLNOMS HealthcareNitrite, UANegativeNegative - PositiveNOMS HealthcarepH, UA65 - 9NOMS HealthcareProtein, UANegativeNegative - 1999(20) ++++ mg/dLNOMS HealthcareSpec Grav, UA1.0151 - 1.03N[facility]S Healthcare Urobilinogen, UA1.00.2 - 12 mg/dLNONM HealthcareNONM HealthcareRECURRENT VAGINITIS (HTRX)on 63-24-0667XOGYKLUKK QSFQCFO3OYAH HealthcareATOPOBIUM VAGINAE Not detectedNOMS HealthcareBVAB 2,3 (BACTERIAL VAGINOSIS ASSOCIATED BACTERIA 2, 3); MOBILUNCUS SPP22.558AbnormalNONM HealthcareBVAB 2,3 (BACTERIAL VAGINOSIS ASSOCIATED BACTERIA 2, 3); MOBILUNCUS SPPDetectedAbnormalNONM HealthcareCANDIDA ALBICANS, PARAPSILOSIS, RRQNHWPWVP6WRAN HealthcareCANDIDA ALBICANS, PARAPSILOSIS, TROPICALISNot detectedNOMS HealthcareCANDIDA EPTVMFLY7RZBE HealthcareCANDIDA GLABRATANot detectedNOMS HealthcareCANDIDA XCDPJL0GETJ HealthcareCANDIDA KRUSEINot detectedNOMS HealthcareCHLAMYDIA RVDUODQUPUO1OKNU HealthcareCHLAMYDIA TRACHOMATISNot detectedNOMS HealthcareERMB, C; MEFA25.177 AbnormalNOMS HealthcareERMB, C; MEFADetectedAbnormalNOMS HealthcareGARDNERELLA RPVNBALKK68.544AbnormalNOMS HealthcareGARDNERELLA VAGINALISDetectedAbnormalNONM HealthcareInterpretation and review of laboratory resultsAbnormalNONM Healthcare MEGASPHAERA (TYPES 1, 2)0NOMS HealthcareMEGASPHAERA (TYPES 1, 2)Not detectedNOMS HealthcareMYCOPLASMA SKVHPKEYRF1OVYU HealthcareMYCOPLASMA GENITALIUMNot detected NOMS HealthcareNEISSERIA LSYDHVNLQWW4FXGL HealthcareNEISSERIA GONORRHOEAENot detectedNOMS HealthcareTET B, TET M21.747AbnormalNOMS HealthcareTET B, TET M DetectedAbnormalNOMS HealthcareTRICHOMONAS [id number] HealthcareTRICHOMONAS VAGINALISNot detectedNOMS HealthcareNONM HealthcareUS OB 14+ WEEKS ANATOMY SCAN on 05-42-2595RA OB 14+ WEEKS ANATOMY SCANFINDINGS: A single, [...] Delivery: 10/14/25 Gestational Age as of 05/18/2025: 11n9pNjgzlpiept macro (dipstick) panel (U)on 42-20-5791Afflfnhoa, UANegativeNegative - 4(70) +++ mg/dLNOMS HealthcareBlood, UANegativeNegative [...] HealthcareNOMS Healthcare Urinalysis macro (dipstick) panel (U)on 15-61-7874Qxshrdqgk, UANegativeNegative - 4(70) +++ mg/dLNOMS HealthcareBlood, UAPositiveNegative - 50 Tarun/mcLNONM HealthcareComment on above:traceClarity, UACloudyNOMS HealthcareColor, UAYellow NOMS HealthcareGlucose, UANegativeNegative - 2000(110) ++++ mg/dLNONM Healthcare Interpretation and review of laboratory resultsAbnormalNONM HealthcareKetones, UANegativeNegative - 160(16) ++++ mg/dLNONM HealthcareLeukocytes, UATrace Negative - 500+++ Joelle/mcLNONM HealthcareNitrite, UAPositiveNegative - Positive NOMS HealthcareComment on above:positivepH, UA7.55 - 9NONM HealthcareProtein, UA NegativeNegative - 2000(20) ++++ mg/dLNONM HealthcareSpec Grav, UA1.021 - 1.03 NOMS HealthcareUrobilinogen, UA0.20.2 - 12 mg/dLNOGolden Valley Memorial HospitalNONM Healthcare ALL CBC WITH AUTO DIFFon 42-15-7360XPHCNKOHM ABSOLUTE URFE4MZUU Healthcare Basophils/100 WBC (Bld)0.5 %0.2 - 2.0 %NOMS HealthcareEosinophils/100 WBC (Bld) 2.5 %0.9 - 7.0 %NOM HealthcareErythrocyte distribution width (RBC) [Ratio]17.3 %High11.0 - 15.0 %NOMS HealthcareHematocrit (Bld) [Volume fraction]32.1 %Low36.0 - 48.0 %NOM HealthcareHemoglobin (Bld) [Mass/Vol]10.4 g/dLLow12.0 - 16.0 g/dL NOMS [facility] CenterIMMATURE GRANULOCYTES ABS AUTO0.01NONM HealthcareImmature granulocytes/100 WBC (Bld)0.1 %0.0 - 0.5 %NOM HealthcareInterpretation and review of laboratory resultsAbnormalMOUNTAINSTAR HEALTHCARE HealthcareLYMPHOCYTES ABSOLUTE AUTO1.1 LowNONM HealthcareLymphocytes/100 WBC (Bld)14.4 %Low20.5 - 60.0 %[facility]OMF[facility]gibbon Hospital MCH (RBC) [Entitic mass]23.8 pgLow26.7 - 34.0 pgNOGolden Valley Memorial HospitalMCHC (RBC) [Mass/Vol]32.4 g/dL29.9 - 35.2 g/dLNOMS HealthcareMCV (RBC) [Entitic vol]73.5 fL Low81.0 - 99.0 fLNOMS HealthcareMONOCYTES ABSOLUTE AUTO0.5NOMS Healthcare Monocytes/100 WBC (Bld)7.1 %1.7 - 12.0 %NOMS HealthcareNEUTROPHILS ABSOLUTE AUTO 5.5NOMS HealthcareNeutrophils/100 WBC (Bld)75.4 %High43.0 - 75.0 %NOMS HealthcarePlatelet mean volume (Bld) [Entitic vol]11.1 fL9.5 - 13.5 fLNOMS HealthcareTBH EO #0.2NOMS HealthcareTBH [id number] HealthcareTBH RBC4.37NOMS HealthcareTBH WBC7.3NOMS HealthcareCLINISYNCNOMS HealthcareUS OB TRANSVAGINALon 17-69-7458WP OB TRANSVAGINALEXAM: US OB TRANSVAGINAL HISTORY: Dating. [...] II, MD, PHD at 11-Mar-2025 10:13:58 AM [facility]eleradiologyNormalNot AvailableComment on above:Order Comment: US OB TRANSVAGINAL No LMP recorded.ALL DEHYDROEPIANDROSTERONEon 96-93-8612DDNX, IFVVG590 ng/dL40 - 491 ng/dLNONM HealthcareComment on above:Age 1 - 5 years [...] developed and its performance characteristics determined by [facility]. It has not been cleared or approved by the Food and Drug Administration. Performed at: [address] [id number] Bottom Filler: Eliud Rodriguez MD, Phone: [phone] [facility] ANTI-MULLERIAN HORMONEon 63-40-7461XWSW-MULLERIAN HORMONE (AMH)2.79 ng/mL.[facility] HealthcareComment on above:For assays employing antibodies, the possibility exists for interference by heterophile antibodies in the samples.1 1.Gracie Hernandez Interferences in Immunoassays - still a threat. Clin. Chem. 2000; 46: 6073-7225. This test was developed and its performance characteristics determined by [facility]. It has not been cleared or approved [...] exclude an AMH-secreting ovarian tumor. Performed at: [facility] [address] [place] [id number] Bottom Filler: Burke Mackey MD, Phone: [phone] [facility] DHEA SULFATEon 43-71-2246WTVJ-WQVOSEF493.0 ug/dL 110.0 - 433.2 ug/dLNONM HealthcareALL FOLLICLE STIMULATING HORMONEon 06-16-2024 FSH4.6. mIU/mLNOMS HealthcareComment on above:Adult Female Range Follicular phase 3.5 - 12.5 Ovulation phase 4.7 - 21.5 Luteal phase 1.7 - 7.7 Postmenopausal 25.8 - 134.8 Performed at: [facility] [id number] Bottom Filler: Nate Don PhD, Phone: [phone] ALL LUTEINIZING HORMONEon 55-71-2151HXUUQUPWSGD HORMONE(LH)7.6. mIU/mLNOMS HealthcareComment on above:Adult Female Range Follicular phase 2.4 - 12.6 Ovulation phase 14.0 - 95.6 Luteal phase 1.0 - 11.4 Postmenopausal 7.7 - 58.5 No Panel Informationon 11-61-1992CWRAUEBWXIIUC HealthcareALL CBC WITH AUTO DIFF on 81-84-8959ATCBEUGFD ABSOLUTE AUTO0.0NOGolden Valley Memorial HospitalBasophils/100 WBC (Bld)0.7 %0.2 - 2.0 %NOMS [facility] CenterEosinophils/100 WBC (Bld)2.3 %0.9 - 7.0 %[facility] CenterErythrocyte distribution width (RBC) [Ratio]15.6 %High11.0 - 15.0 % NOMFitzgibbon HospitalHematocrit (Bld) [Volume fraction]34.8 %Low36.0 - 48.0 %NOMFitzgibbon HospitalHemoglobin (Bld) [Mass/Vol]10.9 g/dLLow12.0 - 16.0 g/dLNOGolden Valley [facility] Hospital IMMATURE GRANULOCYTES ABS AUTO0.01NOGolden Valley Memorial HospitalImmature granulocytes/100 WBC (Bld)0.2 %0.0 - 0.5 %NOMFitzgibbon HospitalInterpretation and review of laboratory resultsAbnormalNOGolden Valley Memorial HospitalLYMPHOCYTES ABSOLUTE AUTO1.4NOMS [facility] Lymphocytes/100 WBC (Bld)23.6 %20.5 - 60.0 %NOMLakeland Regional HospitalH (RBC) [Entitic mass]23.2 pgLow26.7 - 34.0 pgNOTwo Rivers Psychiatric HospitalHC (RBC) [Mass/Vol]31.3 g/dL29.9 - 35.2 g/dLNONM HealthcareMCV (RBC) [Entitic vol]74.0 fLLow81.0 - 99.0 fLNOMS HealthcareMONOCYTES ABSOLUTE AUTO0.5NOMS HealthcareMonocytes/100 WBC (Bld)7.8 % 1.7 - 12.0 %NOMS HealthcareNEUTROPHILS ABSOLUTE AUTO4.0NOMS Healthcare Neutrophils/100 WBC (Bld)65.4 %43.0 - 75.0 %NOMS HealthcarePlatelet mean volume (Bld) [Entitic vol]10.3 fL9.5 - 13.5 fLNOMS HealthcareTBH EO #0.1NOMS Healthcare TBH ADP353PRST HealthcareTBH RBC4.70NOMS HealthcareTB WBC6.1NOMS Healthcare CLINISYNCNONM HealthcareUS PELVIS W/ TRANSVAGINALon 27-21-6682DmeH[place], [place] [address] Ultrasound Report Signed Patient: DANETTE AYALA MR#: [id number] : 2005 Acct:[id number] Age/Sex: 18 / F ADM Date: 06/15/24 Loc: [facility] Attending Dr: Shania Antunez D.O. Ordering Physician: Shania Antunez D.O. Date of Service: 06/15/24 Procedure(s): US pelvis w/ transvaginal Accession Number(s): [id number] cc: ELIANA MARQUIS ; Shania Antunez D.O. [facility] [place] [id number] Patient Name: DANETTE AYALA MRN: [facility]:[id number] date: 2005 Sex: F Assigned Patient Location: [facility] Current Patient Location: LAB Accession/Order Number: [id number] Exam Date: 06/15/2024 13:11 Report Date: 06/15/2024 [...] M.A. Signed By: 06/15/242203 DD/ 01 TD/TT: Data Processing Clerk:ARLETHRadiology, Radiologist, - 06/15/2024 [place] [address] Ultrasound Report Signed Patient: DANETTE AYALA MR#: [id number] : 2005 Acct:[id number] Age/Sex: 18 / F ADM Date: 06/15/24 Loc: [facility] Attending Dr: Shania Antunez D.O. Ordering Physician: Shania Antunez D.O. Date of Service: 06/15/24 Procedure(s): US pelvis w/ transvaginal Accession Number(s): [id number] cc: ELIANA MARQUIS ; Shania Antunez D.O. [facility] [place] [id number] Patient Name: DANETTE AYALA MRN: [facility]:[id number] date: 2005 Sex: F Assigned Patient Location: [facility] Current Patient Location: LAB Accession/Order Number: [id number] Exam Date: 06/15/2024 13:11 Report Date: 06/15/2024 [...] M.A. Signed By: 06/15/242203 DD/ 01 TD/TT: Data Processing Clerk: [facility] [employer] TechnologiesRadiology Study observation (narrative)[facility] [employer] PELVIS W/ TRANSVAGINALOrdered By: Radiologist Radiology on 46-92-6401BYSM [employer] Work Phone: US PELVIS AND TRANSVAGon [phone] PELVIS AND TRANSVAGEXAMINATION: US PELVIS AND TRANSVAG [...] Electronically authenticated by: KIAN MONREAL Date: 2022-01-02 14:40[facility] PELVIS AND TRANSVAGon 26-36-1187SE PELVIS AND TRANSVAG EXAMINATION: US PELVIS AND [...] authenticated by: MELVIN ALONSO Date: 2021-10-12 15:53NormalThe [facility] AUTO DIFFon [id number] #0.0 103/ulNormal0.0-0.1The [facility]S Medical CenterComment on above:Performed By: #### CBC #### [facility] Laboratory [address], [place] [address] Cain KarenBasophils/100 WBC (Bld)0.3 %Normal0.2-2.0The [facility] Comment on above:Performed By: #### CBC #### [facility] [address], [place] [address] Cain KarenEO #0.0 103/ulNormal0.0-0.7The [facility]S Medical CenterComment on above: Performed By: #### CBC #### [facility] [address], [place] [address] Cani KarenEosinophils/100 WBC (Bld)0.3 %Critically low0.9-7.0The [facility]'S Medical CenterComment on above:Performed By: #### CBC #### [facility] [address], [place] [address] Cain KarenErythrocyte distribution width (RBC) [Ratio]14.3 %Jppgad53.0-15.0The [facility]'S Medical CenterComment on above:Performed By: #### CBC #### [facility] Laboratory [address] [place] [address] Cain KarenHematocrit (Bld) [Volume fraction]34.1 %Critically low36.0-48.0The [facility]S Medical CenterComment on above:Performed By: #### CBC #### [facility] [address] [place] [address] Cain KarenHemoglobin (Bld) [Mass/Vol]11.1 g/dLCritically low12.0-16.0The [facility] Medical CenterComment on above:Performed By: #### CBC #### [facility] [address] [place] [address] Cain KarenIG #0.02 10e3/ulNormal0.00-0.03The [facility]S Medical CenterComment on above:Performed By: #### CBC #### [facility] [address] [place] [address] Cain KarenIG %0.2 %Normal0.0-0.5The [facility]S Medical CenterComment on above: Performed By: #### CBC #### [facility] [address] [place] [address] Cain KarenLYMPH #0.9 103/ulCritically low1.2-3.8The [facility]S Medical CenterComment on above:Performed By: #### CBC #### [facility] [address] [place] [address] Cain KarenLymphocytes/100 WBC (Bld)9.3 %Critically low20.5-60.0The [facility]'S Medical CenterComment on above:Performed By: #### CBC #### [facility] [address] [place] [address] Cain KarenMANUAL DIFF REQNONormalThe [facility]'S Medical CenterComment on above: Performed By: #### CBC #### [facility] [address] [place] [address] Cain KarenMCH (RBC) [Entitic mass]25.6 pgCritically low26.7-34.0The [facility]S Medical CenterComment on above:Performed By: #### CBC #### [facility] [address] [place] [address] Cain ChapmanMCHC (RBC) [Mass/Vol]32.6 g/tTIrkmbl14.9-35.2The [facility] Comment on above:Performed By: #### CBC #### [facility] [address] [place] [address] Cain KarenMCV (RBC) [Entitic vol]78.8 fLCritically low79.1-95.6The [facility] Medical CenterComment on above:Performed By: #### CBC #### [facility] [address] [place] [address] Cain OlsonenMONO #0.6 103/ulNormal0.3-0.8The [facility] Medical CenterComment on above: Performed By: #### CBC #### [facility] [address] [place] [address] Cain KarenMonocytes/100 WBC (Bld)6.3 %Normal1.7-12.0The [facility] Comment on above:Performed By: #### CBC #### [facility] [address] [place] [address] Cian KarenNEUT #8.0 103/ulCritically high1.4-6.5The [facility]S Medical CenterComment on above:Performed By: #### CBC #### [facility] [address] [place] [address] Cain KarenNeutrophils/100 WBC (Bld)83.6 %Critically high43.0-75.0The [facility] Medical CenterComment on above:Performed By: #### CBC #### [facility] [address] [place] [address] Cain KarenPlatelet mean volume (Bld) [Entitic vol]11.0 fLNormal9.5-13.5The [facility] Medical CenterComment on above:Performed By: #### CBC #### [facility] [address] [place] [address] Cain QtfvyISV497 103/osQqumzz190-730Ljy Mary Rutan Hospitalment on above: Performed By: #### CBC #### [facility] [address] [place], [place] [address] Cain ChapmanRBC4.33 106/ulNormal3.40-5.30The [facility] on above: Performed By: #### CBC #### [facility] [address] [place], [place] [address] Cain OlsonenWBC9.6 103/ulNormal4.0-11.0The [facility] on above: Performed By: #### CBC #### [facility] [address] [place], [place] [address] Cain KarenCT ABD/PELV W CONon 23-13-5993SM ABD/PELV W CONCLINICAL HISTORY: ABDOMINAL DISTENSION (GASEOUS). [...] Electronically authenticated by: HARSHA AGUILAR Date: 2021-05-05 14:12[facility] URINE PROFILEon 99-09-1140Huqiydkem Ql (U)NegativeNormal NEGATIVEGrant HospitalComment on above:Performed By: #### ERUR, PREGU #### [facility] [address] [place] [address] Cain KarenClarity (U)CLEARNormalCLEARGrant HospitalComment on above: Performed By: #### ERUR, PREGU #### [facility] [address] [place] [address] Cain KarenColor (U)LT. YELLOWNormalYELLOWGrant HospitalComment on above:Performed By: #### ERUR, PREGU #### [facility] [address] [place] [address] Cain KarenERUAHDA micrscopic examination will be performed if indicated.Normal Grant HospitalComment on above:Performed By: #### ERUR, PREGU #### [facility] [address] [place] [address] Cain KarenGlucose Ql (U)NegativeNormalNEGATIVEGrant HospitalComment on above:Performed By: #### ERUR, PREGU #### [facility] [address] [place] [address] Cain KarenHemoglobin Ql (U)NegativeNormalNEGATIVEGrant HospitalComment on above:Performed By: #### ERUR, PREGU #### [facility] [address] [place] [address] Cain KarenKetones Ql (U)NegativeNormalNEGATIVEGrant HospitalComment on above:Performed By: #### ERUR, PREGU #### [facility] [address] [place] [address] Cain KarenLEUKOCYTESNegativeNormalNEGATIVEGrant HospitalComment on above:Performed By: #### ERUR, PREGU #### [facility] [address] [place] [address] Cain OlsonenNitrite Ql (U)NegativeNormalNEGATIVEThe [facility]'S Medical CenterComment on above:Performed By: #### BE, PREGU #### [facility] [address] [place] [address] Cain OlsonenpH (U)6.5 [pH]Normal5-9The [facility]S Medical CenterComment on above: Performed By: #### BE, PREGU #### [facility] [address] [place] [address] Cain OlsonenSPEC GRAVITY1.654Lcfeyz0.005-<=1.025The [facility]'S Medical CenterComment on above:Performed By: #### BE, PREGU #### [facility] [address] [place] [address] Cain ChapmanUA PROTEINNegativeNormalNEGATIVE/ TRACEThe [facility] HospitalComment on above:Performed By: #### BE, PREGU #### [facility] [address] [place] [address] Cain OlsonenUR MICRO INDNOT INDICATEDNormalThe [facility]'S Medical CenterComment on above:Performed By: #### BE, PREGU #### [facility] [address] [place] [address] Cain ChapmanUrobilinogen Qn (U)0.2 {Dagoberto'U}/dLNormal0.2 - 1.0The [facility] Medical CenterComment on above:Performed By: #### KIERANR, PREGU #### [facility] [address] [place] [address] Cain KarenLIPASEon 30-96-5909Ivwvgw [Catalytic activity/Vol]53.0 U/LNormal 23.0-300.0The [facility] Medical CenterComment on above:Performed By: #### CMP, LIPA #### [facility] [address] [place] [address] Cain KarenPREGNANCY URon 92-06-2712QETLOVVCV, QUALNegativeNormalNEGATIVEThe [facility] HospitalComment on above:Performed By: #### KIERANR, PREGU #### [facility] [address] [place] [address] Cain KarenPROF 14(COMP METB)on 73-79-2430Xjxeshc [Mass/Vol]3.7 g/dLNormal 3.5-5.0Grant HospitalComment on above:Performed By: #### CMP, LIPA #### [facility] [address] [place] [address] Cain KarenAlbumin/Globulin [Mass ratio]1.2 {ratio}NormalGrant Hospital Comment on above:Performed By: #### CMP, LIPA #### [facility] [address] [place] [address] Cain KarenALP [Catalytic activity/Vol]86 U/FAwvrks94-590DfsGrant Hospital Comment on above:Performed By: #### CMP, LIPA #### [facility] [address] [place] [address] Cain KarenALT [Catalytic activity/Vol]22 U/LNormal9-52[facility] Comment on above:Performed By: #### CMP, LIPA #### [facility] [address] [place] [address] Cain KarenAnion gap [Moles/Vol]11.6 mmol/LNormalGrant HospitalComment on above:Performed By: #### CMP, LIPA #### [facility] [address] [place] [address] Cain KarenAST [Catalytic activity/Vol]15 U/UQxozlq12-68JevGrant Hospital Comment on above:Performed By: #### CMP, LIPA #### [facility] [address] [place] [address] Cain KarenBilirubin [Mass/Vol]0.5 mg/dLNormal0.2-1.3TAdena Health System Comment on above:Performed By: #### CMP, LIPA #### [facility] [address] [place] [address] Cain KarenCalcium [Mass/Vol]9.2 mg/dLNormal8.4-10.2[facility] Comment on above:Performed By: #### CMP, LIPA #### [facility] [address] [place] [address] Cain KarenChloride [Moles/Vol]105 mmol/CExpwgj27-628Cgf [facility] Comment on above:Performed By: #### CMP, LIPA #### [facility] [address] [place] [address] Cain KarenCO2 [Moles/Vol]25.4 mmol/IUculen45.0-30.0The [facility] Comment on above:Performed By: #### CMP, LIPA #### [facility] [address] [place] [address] Cain KarenCreatinine [Mass/Vol]0.72 mg/dLNormal0.52-1.04[facility] Comment on above:Performed By: #### CMP, LIPA #### [facility] [address] [place] [address] Cain KarenGlobulin (S) [Mass/Vol]3.2 g/dLNormalThe [facility]S Medical CenterComment on above:Performed By: #### CMP, LIPA #### [facility] [address] [place] [address] Cain KarenGlucose [Mass/Vol]88 mg/rOPpkcsq07-684UwbGrant HospitalComment on above:Performed By: #### CMP, LIPA #### [facility] [address] [place] [address] Cain KarenPotassium [Moles/Vol]4.0 mmol/LNormal3.4-5.0The [facility] Comment on above:Performed By: #### CMP, LIPA #### [facility] [address] [place] [address] Cain KarenProtein [Mass/Vol]6.9 g/dLNormal6.1-8.2Grant HospitalComment on above:Performed By: #### CMP, LIPA #### [facility] [address] [place] [address] Cain KarenSodium [Moles/Vol]138 mmol/WMyhbrt524-876Blp [facility] Comment on above:Performed By: #### CMP, LIPA #### [facility] [address] [place], [place] [address] Cain KarenUrea nitrogen [Mass/Vol]8.0 mg/dLNormal6.4-19.3The [facility] Comment on above:Performed By: #### CMP, LIPA #### [facility] [address] [place], [place] [address] Cain KarenUrea nitrogen/Creatinine [Mass ratio]11.1 mg/mgNoKettering Health Behavioral Medical CenterComment on above:Performed By: #### JUNE, LIPA #### [facility] [address] [place], [place] [address] Cain KarenUS PELVIS TRANSVAGon 45-85-4916CO PELVIS TRANSVAGEXAM: US PELVIS TRANSVAG HISTORY: Cyst [...] Electronically authenticated by: JONI GUZMAN Date: 2021-05-05 15:27[facility] Vital Signs Date TimeVital SignValuePerforming MwkzxclwbQwdpuvxf47-63-0852 15:28-0400Body mass index (BMI) [Ratio]28.97 kg/m2Amy Gigi PA Work Phone: [phone]-[facility] CenterOvdigzytby52-91-6151 15:28-0400Body poedgr60.57 kgAmy Gigi PA Work Phone: [phone] [place], [place] [address]Npnzzplywj87-65-8051 15:28-0400Diastolic blood oqwlthsv73 mm[Hg]Munira Gigi PA Work Phone: [phone] [place], [place] [address]Kkynptugle93-00-4544 15:28-0400Systolic blood dksehuej247 mm[Hg]Munira Garcia PA Work Phone: [phone] [place], [place] [address]Klremfiwwg10-96-2856 15:16-0400Body mass index (BMI) [Ratio]28.92 kg/m2Amy Gigi PA Work Phone: [phone] [place], [place] [address]Yuxbqlbwxg76-97-5971 15:16-0400Body hxvmea80.43 kgMunira Garcia PA Work Phone: [phone] [place], [place] [address]Ubvwiukqrq79-48-0787 15:16-0400Diastolic blood nwfxuiez42 mm[Hg]Munira Garcia PA Work Phone: [phone] [place], [place] [address]Avwtxdmwxz36-32-1339 15:16-0400Systolic blood drnxnpur290 mm[Hg]Munira Garcia PA Work Phone: [phone] [place], [place] [address]Ulnbvdtvxm51-14-2176 13:59-0400Body mass index (BMI) [Ratio]28.84 kg/o5ArruytihDarlene Olmstead [employer] Work Phone: [phone] [place], [place] [address]Sbcdherrld28-68-6926 13:59-0400Body .2 kg Darlene Angelesly [employer] Work Phone: [phone] [place], [place] [address]Ptgpkleyqy20-87-0772 13:59-0400Diastolic blood glhgogfw78 mm[Hg]Darlene Ishan [employer] Work Phone: [phone] [place], [place] [address]Rqtiqaghis81-65-7492 13:59-0400Systolic blood mm[Hg]Darlene Angelesly [employer] Work Phone: [phone] [place], [place] [address]Gqoevzyxyw14-90-5473 15:28-0400Body mass index (BMI) [Ratio]28.69 kg/y8Jbzoa Tulio DO Work Phone: [facility] CenterEhksyochhx47-87-5652 15:28-0400Body fdouks74.81 kgCorey Tulio DO Work Phone: [phone] [place], [place] [address]Sszzqpzvrk84-66-3438 15:28-0400Diastolic blood jmimlyje54 mm[Hg]Shania Tulio DO Work Phone: [phone] [place], [place] [address]Ubqahvqetz10-08-8494 15:28-0400Systolic blood wajlxrun481 mm[Hg]Shania Tulio DO Work Phone: [phone] [place], [place] [address]Lwwxzcusjc51-38-4474 13:52-0400Body mass index (BMI) [Ratio]28.97 kg/g3Vaqgp Tulio DO Work Phone: [phone] [place], [place] [address]Xbyhahmvcy86-88-6006 13:52-0400Body .57 kgCorey Tulio DO Work Phone: [phone] [place], [place] [address]Itnxfpftdt11-32-3820 13:52-0400Diastolic blood xuosakbb76 mm[Hg]Shania Tulio DO Work Phone: [phone] [place], [place] [address]Tfczsddbjl70-95-6134 13:52-0400Systolic blood wuvpuxqf796 mm[Hg]Shania Tulio DO Work Phone: [phone] [place], [place] [address]Euefacvntr88-63-7836 15:54-0400Body mass index (BMI) [Ratio]28.24 kg/m2Amy Gigi LALA Work Phone: [phone] [place], [place] [address]Fjgstuxmqu30-49-0961 15:54-0400Body evjmsj69.62 kgAmy Gigi LALA Work Phone: [phone] [place], [place] [address]Pjwiegevtr32-61-9435 15:54-0400Diastolic blood pebxhxmf01 mm[Hg]Munira LALA Work Phone: [phone] [place], [place] [address]Fqsmsztdmu49-16-5675 15:54-0400Systolic blood oaevzbuh526 mm[Hg]Munira LALA Work Phone: [phone]-[facility] CenterPebevsilng50-40-0806 13:34-0400Body mass index (BMI) [Ratio]29.35 kg/d0Cwmfr Tulio DO Work Phone: [facility] CenterBwololhkqg72-48-1161 13:34-0400Body negnmj79.56 kgCorey Tulio DO Work Phone: [facility] CenterSwqvrxxpay50-13-6504 13:34-0400Diastolic blood iypupbxo21 mm[Hg]Shania Tulio DO Work Phone: [facility] CenterZswqjmyegz63-84-4996 13:34-0400Systolic blood pqeixcug508 mm[Hg]Shania Tulio DO Work Phone: [facility] CenterAyoftkhfjb12-81-1712 11:07-0400Body pilqtw883.6 cmSfacundo Hernandes [employer] Work Phone: [facility] CenterLqletwnkch06-54-0664 11:07-0400Body mass index (BMI) [Ratio]29.18 kg/g3ZkhvdxJose Antonio Hernandes [employer] Work Phone: [facility] CenterKuokphntvl69-16-7521 11:07-0400Body azpyhi88.11 kgShgaye Hernandes [employer] Work Phone: [facility] CenterLtlgcnllcx11-13-3501 11:07-0400Diastolic blood zyfmyndy97 mm[Hg]Jose Antonio Hernandes [employer] Work Phone: [facility] CenterPbbjdwsbte14-63-0851 11:07-0400Heart rate79 /min Jose Antonio Hernandes [employer] Work Phone: [facility] CenterZjojnaulcp79-90-0028 11:07-0400Respiratory rate16 /minSfacundo Hernandes [employer] Work Phone: [facility] CenterWokffpxdao91-04-3853 11:07-2343AoC9% (BldA) [Mass fraction]98 %Jose Antonio Hernandes [employer] Work Phone: [facility] CenterZvecneokob37-52-8941 11:07-0400Systolic blood ijtgxlqa323 mm[Hg]Jose Antonio Hernandes [employer] Work Phone: [facility] CenterYlmtigkizv74-50-6458 13:36-0500Body mass index (BMI) [Ratio]32.58 kg/w8Gzwuc Tulio DO Work Phone: [facility] CenterVhcqairjtj94-56-0444 13:36-0500Body .09 kgCorey Tulio DO Work Phone: NOGold[facility] HospitalJasrjsmekm82-87-7825 13:36-0500Diastolic blood biytuyeh05 mm[Hg]Shania Tulio DO Work Phone: NOGold[facility] HospitalUvjwiphqhs20-61-9181 13:36-0500Systolic blood eprbkbqv196 mm[Hg]Shania Tulio DO Work Phone: [facility] Encounters Encounter DateEncounter TypeCare ProviderFacilityStart: 09-07-2025 End: 06-43-3038Pyhohzpdv Result EncounterKristina Ishan [employer] Work Phone: noms External Department UnsolicitedStart: 09-07-2025 End: 00-81-1897Wwwcosamq Result EncounterKristina Ishan [employer]IST Work Phone: n[facility] External Department UnsolicitedStart: 08-27-2025 End: 65-63-6825Ltxhzrzmc Result EncounterKristina Ishan [employer]IST Work Phone: n[facility] External Department UnsolicitedStart: 08-27-2025 End: 63-33-1357Vllbzqgwa Result EncounterKristina Ishan [employer]IST Work Phone: n[facility] External Department UnsolicitedStart: 08-26-2025 End: 31-41-9674Sabnydflf Result EncounterKristina Ishan [employer]IST Work Phone: noms External Department UnsolicitedStart: 08-26-2025 End: 65-77-1159Jrgamilkk Result EncounterKristina Ishan [employer]IST Work Phone: noms External Department UnsolicitedStart: 08-25-2025 End: 26-01-8765aptijrumjpOHB RAMEYNot AvailableStart: 08-25-2025 End: 68-63-0920Lenktu outpatient visit 15 minutesMunira LALA Work Phone: [facility] [place] OBGYNComment on above:Urinary tract infection without hematuria, site unspecified (Primary Dx); Third trimester ([facility]); 32 weeks gestation of ([facility])Start: 08-25-2025 End: 31-00-6360Bjmcwa Lela LALA Work Phone: [facility] [place] OBGYNStart: 08-25-2025 End: 14-99-6121Nwvhus Lela LALA Work Phone: [facility] [place] OBGYNStart: 08-22-2025 End: 63-06-4158Yfixzcrwq Result EncounterCorey Tulio DO Work Phone: [facility] External Department UnsolicitedStart: 08-22-2025 End: 12-24-3850Qazxkaasx Result EncounterCorey Tulio DO Work Phone: NOYZ External Department UnsolicitedStart: 08-19-2025 End: 57-03-9073Vjyfcpewk Result EncounterCorey Tulio DO Work Phone: [facility] External Department UnsolicitedStart: 08-19-2025 End: 08-83-1946Jaxayprrx Result EncounterCorey Tulio DO Work Phone: NOVP External Department UnsolicitedStart: 08-11-2025 End: 53-06-4114Lnirxh outpatient visit 15 minutesMunira LALA Work Phone: [facility] [place] OBGYNComment on above:Third trimester ([facility]); 30 weeks gestation of ([facility])Start: 08-11-2025 End: 19-11-1759txrasergurFDK RAMEYNot AvailableStart: 07-27-2025 End: 96-01-6888Txnydt Quinn Olmstead NP Work Phone: [facility] [place] [facility]BGYNStart: 07-27-2025 End: 46-87-8944Adfazk Quinn Olmstead NP Work Phone: [facility] [place] OBGYNStart: 07-27-2025 End: 10-93-3555maiefvzavaPXKYHCSY EBERLYNot AvailableStart: 07-27-2025 End: 70-52-6287Canhmx outpatient visit 15 minutesDarlene Olmstead [employer]BER TRANSP[employer] SYSTEMS SPECIALIST Work Phone: [facility] [place] OBGYNComment on above:Anemia, unspecified type (Primary Dx); 28 weeks gestation of ([facility]); Third trimester ([facility]); Elevated glucose tolerance testStart: 07-25-2025 End: 81-49-9867Xmpculqec Result EncounterGeneric External Data ProviderNOMS External Department UnsolicitedStart: 07-25-2025 End: 84-91-4071Wihfsxufr Result EncounterGeneric External Data ProviderNOMS External Department UnsolicitedStart: 07-13-2025 End: 02-41-9602Texutj outpatient visit 15 minutesCorey Tulio DO Work Phone: [facility] [place] OBGYNComment on above:Cystitis (Primary Dx); 26 weeks gestation of ([facility]); Second trimester ([facility]); Gastroesophageal reflux in ([facility])Start: 07-13-2025 End: 42-73-1043gkfmghbrfqYBFEV FAZIONot AvailableStart: 07-13-2025 End: 53-26-4064Tyyhye flowsheetCorey Tulio DO Work Phone: [facility] [facility]BGYNStart: 07-13-2025 End: 31-63-8669Wuduvr flowsheetCorey Tulio DO Work Phone: [facility] [place] [facility]BGYNStart: 06-15-2025 End: 29-78-8845Hcjcfy flowsheetCorey Tulio DO Work Phone: [facility] [place] [facility]BGYNStart: 06-15-2025 End: 87-45-9733Xdhbcp flowsheetCorey Tulio DO Work Phone: [facility] [place] [facility]BGYNStart: 06-15-2025 End: 07-66-9883Imtlkk outpatient visit 15 minutesCorey Tulio DO Work Phone: [facility] [place] OBGYNComment on above:22 weeks gestation of ([facility]); Second trimester ([facility]); Diabetes mellitus screeningStart: 06-15-2025 End: 23-39-2380xtbbdneevcAPIBI FAZIONot AvailableStart: 05-31-2025 End: 79-40-7789hzlblyrqwgXFE RAMEYNot AvailableStart: 05-18-2025 End: 62-16-1956Teeovc outpatient visit 15 minutesMunira LALA Work Phone: [facility] OBComment on above:Screening, , for anatomic survey ([facility]); STD exposure; Vaginal discharge; Second trimester ([facility]); 18 weeks gestation of ([facility])Start: 05-18-2025 End: 75-19-6932lonzkvkcvaQUE RAMEYNot AvailableStart: 05-18-2025 End: 76-56-6479Zptqmx flowsJames LALA Work Phone: [facility] BCP OBStart: 05-18-2025 End: 91-95-6025Decibd flowsheetMunira LALA Work Phone: [facility] BCP OBStart: 05-18-2025 End: 39-98-4091Kduxmusq Result EncounterMunira LALA Work Phone: [facility] External Department UnsolicitedStart: 04-06-2025 End: 73-09-5368Sfsstu flowsheetCorey Tulio DO Work Phone: [facility] BCP OBStart: 04-06-2025 End: 95-01-3654Rbzexg flowsheetCorey Tulio DO Work Phone: [facility] BCP OBStart: 04-06-2025 End: 05-06-4087Crcxvp outpatient visit 15 minutesCorey Tulio DO Work Phone: [facility] BCP OBComment on above:First trimester ; 12 weeks gestation of ; Urinary tract infection without hematuria, site unspecified; Other iron deficiency anemiaStart: 04-06-2025 End: 67-94-8286dfrvpfblpjLYZSC FAZIONot AvailableStart: 04-05-2025 End: 18-43-7264Lnknlw Heide Hernandes [employer] SPECIALIST Work Phone: [facility] CI FMStart: 04-05-2025 End: 26-31-9708Hevcqt flowsИрина Hernandes [employer] SPECIALIST Work Phone: [facility] CI FMStart: 04-05-2025 End: 79-81-0776Oxskvk outpatient visit 25 minutesShgaye Hernandes [employer] SYSTEMS SPECIALIST Work Phone: [facility] CI FMComment on above:Jaw pain (Primary Dx); Major depressive disorder, single episode, 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) (CMS/HCC); Otalgia of both earsStart: 04-05-2025 End: 39-83-6970xsskvnrmlpPIJWJT M SHIVELYNot AvailableStart: 04-01-2025 End: 44-31-7481Fgrrdyaju Result EncounterGeneric External Data ProviderNOMS External Department UnsolicitedStart: 04-01-2025 End: 86-50-7321Rrjkytefm Result EncounterGeneric External Data ProviderNOMS External Department UnsolicitedStart: 03-10-2025 End: 48-32-9408ordozdjebkPAPQNQ SHIVELYNot AvailableStart: 03-10-2025 End: 05-17-3362Kwugzz outpatient visit 5 minutesNoms Bcp Ob Tulio NurseNOMS BCP OBComment on above:GA: 2j6sTqxua: 03-10-2025 End: 96-14-6132dejghkxfloBCIOHI SHIVELYNot AvailableStart: 09-07-2024 End: 32-03-4738Olxnba flowsheetCorey Tulio DO Work Phone: [facility] BCP OBStart: 09-07-2024 End: 65-13-7542Pygeun flowsheetCorey Tulio DO Work Phone: [facility] BCP OBStart: 09-07-2024 End: 81-22-7561Dnvcvo outpatient visit 15 minutesCorey Tulio DO Work Phone: [facility] BCP OBComment on above:PCOS (polycystic ovarian syndrome); Hormone imbalance; Pelvic pain in female; Pain in female genitalia on intercourseStart: 09-07-2024 End: 26-97-3740limsqbnlplLQSFB FAZIONot AvailableStart: 06-15-2024 End: 79-69-1609Gkptlltnm Result EncounterGeneric External Data ProviderNOMS External Department UnsolicitedStart: 06-15-2024 End: 96-18-3934Xpipsxpsd Result EncounterGeneric External Data ProviderNOMS External Department UnsolicitedStart: 01-02-2022 End: 53-73-4113hydcsyxfkqUR HEAVENLY CHAPARROFacility:V4Ahuag: 10-12-2021 End: 55-44-6759dizfzizihdIS HEAVENLY CHAPARROFacility:Z8Ajuyo: 05-05-2021 End: 05-85-1223rczaeauicjMH ELIANA ALDAFacility:H1 Procedures DateProcedureProcedure DetailPerforming ClinicianStart: 94-70-1779HXQ FERRITIN Darlene Olmstead [employer] SPECIALIST Work Phone: Start: 64-91-3655GTP HEMOGLOBIN K0NPaeagfgwDarlene Olmstead [employer] SPECIALIST Work Phone: Start: 55-97-0324KZX CBC WITH AUTO DIFFAngelinaa Ishan [employer] SPECIALIST Work Phone: Start: 70-40-1085Gaiou dip stick/tablet rgnt non-auto w/o micrscpKrricha Ishan [employer] SPECIALIST Work Phone: Start: 44-15-1093NLAXRVG TOLERANCE 3 HOURCorey Tulio DO Work Phone: Start: 97-34-3902YWR UA (CLEAN/CATCH) ADMINISTRATIVE SERVICES DIRECTOR/MICRO IF IND.Shania Tulio DO Work Phone: Start: 17-60-8679Mbbyf dip stick/tablet rgnt non-auto w/o micrscpAmy Gigi LALA Work Phone: Start: 93-07-0042Smmui dip stick/tablet rgnt non-auto w/o micrscpKristina Ishan [employer] SPECIALIST Work Phone: start: 06-54-9510TPC CBC WITH AUTO DIFFCorey Tulio DO Work Phone: Start: 62-98-2064Wjqyu dip stick/tablet rgnt non-auto w/o micrscpCorey Tulio DO Work Phone: Start: 17-91-0570Hisjg dip stick/tablet rgnt non-auto w/o micrscpCorey Tulio DO Work Phone: Start: 80-61-9148KEGQKAFNK VAGINITIS (HTRX)Munira LALA Work Phone: Start: 06-19-4281Vxnoy dip stick/tablet rgnt non-auto w/o micrscpAmy Gigi LALA Work Phone: Start: 69-92-0780Lxmru dip stick/tablet rgnt non-auto w/o micrscpCorey Tulio DO Work Phone: Start: 41-83-6328AEP CBC WITH AUTO DIFFCorey Tulio DO Work Phone: Start: 52-17-7324BP PELVIS W/ TRANSVAGINALGeneric External Data ProviderStart: 25-62-6609SHG ANTI-MULLERIAN HORMONECorey Tulio DO Work Phone: Start: 51-69-9846OWI CBC WITH AUTO DIFFCorey Tulio DO Work Phone: Start: 38-32-1779FIU DEHYDROEPIANDROSTERONECorey Tulio DO Work Phone: Start: 73-14-4901BGO DHEA SULFATEGeneric External Data ProviderStart: 20-27-8144FWV FOLLICLE STIMULATING HORMONEGeneric External Data ProviderStart: 50-67-9692NJR LUTEINIZING HORMONEGeneric External Data Provider Plan of Treatment DateCare ActivityDetailAuthorStart: 09-13-2025 End: 15-28-8770Wfzoksh encounter yadlzhwpy88/18/2025 9:20 AM EST Routine [facility] [address] [place], [id number] Shania Antunez DO [address] [place] [address] [facility] [place] OBGYNStart: 08-25-2025 End: 70-27-5480Jtuuwnx encounter vnurmijxi92/30/2025 3:20 PM EDT Routine [facility] BACAGYAnat [address] [place], [id number] Munira Garcia PA [address] [place], [place] [id number] [facility] [place] OBGYNStart: 07-27-2025 End: 83-40-2464Tcqbbhutxrc of glucose 3 hours after glucose challenge for glucose tolerance testGlucose tolerance, 3 hours Lab Routine Elevated glucose tolerance test Expected: 07/27/2025 (Approximate), Expires: 07/27/2026[facility] Work Phone: comment on above:Expected: 07/27/2025 (Approximate), Expires: 07/27/2026Start: 07-27-2025 End: 49-80-1456Bqknhfa encounter fgktmapkf65/01/2025 1:50 PM EDT Routine [facility] [address] [place], [id number] Darlene Olmstead, [employer] SPECIALIST [address] [place] [id number] [facility] [place] OBGYNStart: 07-13-2025 End: 80-55-8533Vwkyyec encounter procedureNOMS Deion OBGYNComment on above: ArrivedStart: 07-13-2025 End: 07-13-5822AF for pregnancyUS OB follow up transabdominal approach Imaging Routine Second trimester ([facility]) Expected: 07/13/2025, Expires: 11/12/2025[facility] Work Phone: comment on above:Expected: 07/13/2025, Expires: 11/12/2025Start: 04-79-2949OFWOP-19 Vaccine ( season)COVID-19 Vaccine ( season)[facility] HealthcareStart: 80-77-2574Qwghqqbvm vaccinationNOMS HealthcareStart: 06-15-2025 End: 21-81-1928RUL panel - Blood by Automated countCBC Lab Routine Diabetes mellitus screening Expected: 06/15/2025 (Approximate), Expires: 06/15/2026[facility] Work Phone: comment on above:Expected: 06/15/2025 (Approximate), Expires: 06/15/2026Start: 06-15-2025 End: 19-13-0001Jzxwnoitswt of glucose 1 hour after glucose challenge for glucose tolerance testGlucose tolerance, 1 hour Lab Routine Diabetes mellitus screening Expected: 06/15/2025 (Approximate), Expires: 06/15/2026N[facility] HealthcareComment on above:Expected: 06/15/2025 (Approximate), Expires: 06/15/2026Start: 06-15-2025 End: 46-19-0808Uqdlulf encounter procedureNOMS BCP OBComment on above:Arrived Start: 05-31-2025 End: 36-60-6451Qvsvugnnjhvf / ancillary services /05/2025 8:30 AM EDT Ancillary Procedure [facility] [address] [place] [address] [facility] BCP OBStart: 05-18-2025 End: 02-98-9106Hhjigzq encounter nuzdphesa58/23/2025 3:30 PM EDT Routine [facility] [address] [place] [address] Munira Garcia PA [address] [place] [address] ArrivedNOMS BCP OBComment on above: ArrivedStart: 05-18-2025 End: 79-28-4025Fpsbz fetoprotein, maternalAlpha fetoprotein, maternal Lab Routine 18 weeks gestation of ([facility]) Expected: 05/18/2025 (Approximate), Expires: 06/18/2025N[facility] HealthcareComment on above:Expected: 05/18/2025 (Approximate), Expires: 06/18/2025Start: 05-18-2025 End: 18-19-5489FG for pregnancyUS OB 14+ weeks anatomy scan Imaging Routine Screening, , for anatomic survey ([facility]) Expected: 05/18/2025, Expires: 08/18/2025N[facility] HealthcareComment on above:Expected: 05/18/2025, Expires: 08/18/2025Start: 05-04-2025 End: 54-41-9179Ahqaozh encounter iiwcebgso57/09/2025 2:30 PM EDT Routine [facility] [address] [place] [phone] Munira Garcia PA [address] [place], [place] [id number] [facility] BCP OBStart: 04-06-2025 End: 84-38-7412Szeuxux encounter procedureNOMS BCP OBComment on above:Arrived Start: 04-05-2025 End: 71-79-5500Bcjkngu encounter procedureNOMS BCP OBComment on above:Arrived Start: 03-10-2025 End: 17-09-6806ZAO/RhABO/Rh Lab Routine Missed menses , unspecified gestational age Expected: 03/10/2025 (Approximate), Expires: 03/10/2026N[facility] HealthcareComment on above:Expected: 03/10/2025 (Approximate), Expires: 03/10/2026Start: 03-10-2025 End: 82-27-5800Xrbfj type and Indirect antibody screen panel - BloodType and screen Lab Routine Missed menses , unspecified gestational age Expected: 03/10/2025 (Approximate), Expires: 03/10/2026N[facility] HealthcareComment on above:Expected: 03/10/2025 (Approximate), Expires: 03/10/2026Start: 03-10-2025 End: 61-25-0528Efmpg of abuse panel - Urine by Screen methodRapid drug screen, urine Lab Routine , unspecified gestational age Encounter for supervision of normal first in first trimester Expected: 03/10/2025 (Approximate), Expires: 03/10/2026[facility] HealthcareComment on above:Expected: 03/10/2025 (Approximate), Expires: 03/10/2026Start: 03-09-2025 End: 48-21-8494JH Pelvis transvaginalUS OB transvaginal Imaging Routine Missed menses Expected: 03/09/2025, Expires: 06/09/2025[facility] Work Phone: comment on above:Expected: 03/09/2025, Expires: 06/09/2025Start: 11-01-2024 End: 34-71-3732Ayobugx encounter dfcjmrhaf91/06/2025 1:20 PM EST Consult [place] [place] [address] Shania Antunez, DO [address] [place] [address] [facility] OBStart: 09-07-2024 End: 43-50-2840Yhcicwf encounter qsyltarpr57/12/2024 8:40 AM EST Office Visit [facility] [address] [place] [address] hSania Antunez, DO [address] [place] [address] [facility] OBStart: 69-35-8550Zrvpjbvdr vaccination Influenza Vaccine (#1)NOM HealthcareStart: 97-75-4514Rhvkjqugy B Vaccines (1 of 3 - 19+ 3-dose series)Hepatitis B Vaccines (1 of 3 - 19+ 3-dose series)NOM HealthcareStart: 40-86-0278Rjoupkjtzyok Vaccine: Pediatrics (0 to 5 Years) and At-Risk Patients (6 to 64 Years) (1 of 2 - PCV)Pneumococcal Vaccine: Pediatrics (0 to 5 Years) and At-Risk Patients (6 to 64 Years) (1 of 2 - PCV)NOM HealthcareStart: 12-60-0155Eakgytmffddkf B Vaccine (1 of 2 - Standard) Meningococcal B Vaccine (1 of 2 - Standard)NOM HealthcareStart: 51-94-8327VMO Vaccines (1 - 3-dose series)HPV Vaccines (1 - 3-dose series)[facility] Start: 82-52-9527Gwtzofw of varicella vaccinationVaricella Vaccines (1 of 2 - 13+ 2-dose series)NOM HealthcareStart: 31-50-0195YOmV/Tdap/Td Vaccines (1 - Tdap)DTaP/Tdap/Td Vaccines (1 - Tdap)NOM HealthcareStart: 47-09-6379HZM Vaccines (1 of 1 - Standard series)MMR Vaccines (1 of 1 - Standard series)[facility]gib[facility] HospitalBacteria identified in Urine by CultureUrine culture Microbiology Routine Missed menses Ordered: 03/10/2025[facility] HealthcareComment on above: Ordered: 03/10/2025acteria identified in Urine by CultureUrine culture Microbiology Routine Cystitis Ordered: 07/13/2025[facility] HealthcareComment on above:Ordered: 07/13/2025BC W Auto Differential panel - BloodCBC and differential Lab Routine Missed menses , unspecified gestational age Ordered: 03/10/2025[facility] HealthcareComment on above:Ordered: 03/10/2025BC W Auto Differential panel - BloodCBC and differential Lab Routine 32 weeks gestation of ([facility]) Ordered: 08/25/2025[facility] Work Phone: comment on above:Ordered: 08/25/2025HLAMYDIA TRACHOMATIS (GENITO/STI)CHLAMYDIA TRACHOMATIS (GENITO/STI) Lab Routine Vaginal discharge Ordered: 05/18/2025[facility] HealthcareComment on above:Ordered: 05/18/2025 Hemoglobin A1c/Hemoglobin.total in BloodHemoglobin A1c Lab Routine Missed menses , unspecified gestational age Ordered: 03/10/2025[facility] Healthcare Comment on above:Ordered: 03/10/2025Hepatitis B virus surface Ag [Presence] in Serum or Plasma by ImmunoassayHepatitis B surface antigen Lab Routine Missed menses , unspecified gestational age Ordered: 03/10/2025[facility] Healthcare Comment on above:Ordered: 03/10/2025Hepatitis C virus Ab [Presence] in Serum or Plasma by ImmunoassayHepatitis C antibody Lab Routine Missed menses , unspecified gestational age Ordered: 03/10/2025[facility] HealthcareComment on above: Ordered: 03/10/2025HIV-1/HIV-2 antigen/antibody combination immunoassayHIV-1 and HIV-2 antibodies Lab Routine Missed menses , unspecified gestational age Ordered: 03/10/2025[facility] HealthcareComment on above:Ordered: 03/10/2025 Neisseria gonorrhoeae DNA [Presence] in Unspecified specimen by STEVO with probe detectionNeisseria gonorrhea DNA probe, direct Lab Routine Vaginal discharge Ordered: 05/18/2025[facility] HealthcareComment on above:Ordered: 05/18/2025 ProgesteroneProgesterone Lab Routine Hormone imbalance Ordered: 09/07/2024[facility] Healthcare Work Phone: comment on above:Ordered: 09/07/2024eagin Ab [Presence] in Serum by RPRRPR Lab Routine Missed menses , unspecified gestational age Ordered: 03/10/2025[facility] HealthcareComment on above:Ordered: 03/10/2025Rubella antibody, IgGRubella antibody, IgG Lab Routine Missed menses , unspecified gestational age Ordered: 03/10/2025[facility] HealthcareComment on above:Ordered: 03/10/2025SURESWAB(R) ADVANCED VAGINITIS PLUS, TMASURESWAB(R) ADVANCED VAGINITIS PLUS, TMA Pathology and Cytology Routine Vaginal discharge Ordered: 05/18/2025[facility] Work Phone: comment on above:Ordered: 05/18/2025US Pelvis transvaginalUS OB transvaginal Imaging Routine Missed menses 03/10/2025 2:28 PM [facility] Healthcare Payers DatePayer CategoryPayerPolicy ID2023Medicaid [id number] 2023Medicaid (Managed Care) [id number] [id number] [id number] 2.16.840.1.481409.3.57[id number] 2.16.840.1.309322.3.57[id number] 2.16.840.1.858980.3.57[id number] 2.16.840.1.469689.3.57[id number] 2.16.840.1.011314.3.57[id number] 2.16.840.1.507695.3.57[id number] 2.16.840.1.997358.3.57[id number] 2.16.840.1.334482.3.57[id number] 2.16.840.1.602385.3.57[id number] 2.16.840.1.414402.3.57[id number] 2.16.840.1.381594.3.57[id number] 2.16.840.1.920037.3.57[id number] 2.16.840.1.622961.3.57[id number] 2.16.840.1.349500.3.57[id number] 2.16.840.1.220101.3.57[id number] 2.16.840.1.872869.3.57[id number] Social History DateTypeDetailFacilityStart: 12-30-2023 End: 28-89-5470Ylruudv smoking status NHISNever smoked tobaccoNONM Healthcare Start: 12-30-2023 End: 07-86-0525Qxdtkdq of Social functionNONM HealthcareStart: 12-30-2023 End: 18-57-4422Uhobicp use panelNONM HealthcareStart: 98-74-3905Vqs assigned at birthNot on fileNONM HealthcareStart: 93-55-7437SplebrsrvDQTZ HealthcareStart: 00-57-5434Ekvulwm use and exposureSmokeless tobacco non-userNONM Healthcare Start: 04-05-2025 End: 77-00-7266Jmxheejlm beverage intakeLifetime non-drinker (finding)[facility] HealthcareStart: 03-63-3553JhvKlcpeaFZVK HealthcareNEGATED: Highlighted row Start: NINFHistory of tobacco usePassive smokerNONM Healthcare Functional Status OfmxRxykofdphcPjqepiNdirmqjh43-35-1674Awzhjbo Health Questionnaire 2 item (PHQ- 2) [Reported][facility] Clinical Notes 09-07-2024 to 08-25-2025 Note Date & YrskGbpwWqcmjwrq56-56-3272 History of Present illness Narrative* Darlene Olmstead [...] 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 Exam conducted with a spring coverer present. Vitals: Estimated body mass index is 28.97 kg/m as calculated from the following: Height as of 25: 5' 4 . Weight as of this encounter: 168 lb 12.8 oz. BP: 118/60 Patient's last menstrual period was 01/07/2025. Assessment/Plan ICD-10-CM 1. Third trimester ([facility]) Z34.93 2. 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 Third trimester ([facility]) Z34.93 POCT urinalysis dipstick manually resulted 2. 30 weeks gestation of ([facility]) Z3A.30 Return OB: Patient presents today [...] surgical history on file. documented in this encounterMissouri Delta Medical CenterFiutwkeorv62-19-3499 History of Present illness Narrative* Darlene Olmstead NP - 07/27/2025 1:50 PM EDT Reason for Appointment: Patient ID: Ayala is a 19 y.o. female who [...] nursing note reviewed. Exam conducted with a spring coverer present. Vitals: Estimated body mass index is 28.84 kg/m as calculated from the following: Height as of 04/05/25: 5' 4 . Weight as of this encounter: 168 lb. BP: 112/70 Patient's last menstrual period was 01/07/2025. ASSESSMENT & PLAN ICD-10-CM 1. Anemia, unspecified type D64.9 iron polysaccharides (ProFe) 391.3 (180 Fe) MG capsule 2. 28 weeks gestation of ([facility]) Z3A.28 POCT urinalysis dipstick manually resulted 3. Third trimester ([facility]) Z34.93 4. Elevated glucose tolerance test [...] of: Darlene Olmstead NP documented in this encounterMissouri Delta Medical CenterOldtaeqtxo06-80-8938 History of Present illness Narrative* Darlene Olmstead [...] nursing note reviewed. Exam conducted with a spring coverer present. Vitals: Estimated body mass index is 28.69 kg/m as calculated from the following: Height as of 04/05/25: 5' 4 . Weight as of this encounter: 167 lb 1.9 oz. BP: 120/68 Patient's last menstrual period was 01/07/2025. ASSESSMENT & PLAN ICD-10-CM 1. Cystitis N30.90 nitrofurantoin, macrocrystal-monohydrate, (Macrobid) 100 MG capsule Urine culture 2. 26 weeks gestation of ([facility]) Z3A.26 POCT urinalysis dipstick manually resulted 3. Second trimester ([facility]) Z34.92 POCT urinalysis dipstick manually resulted US OB follow up transabdominal approach 4. Gastroesophageal reflux in ([facility]) O99.619 omeprazole (PriLOSEC) [address] [...] of: Shania Antunez DO documented in this encounterMissouri Delta Medical CenterIgsrvhobps97-96-3496 History of Present illness Narrative* SPIKE Guzmna - 06/15/2025 1:50 PM EDT Reason for [...] PLAN ICD-10-CM 1. 22 weeks gestation of ([facility]) Z3A.22 POCT urinalysis dipstick manually resulted 2. Second trimester ([facility]) Z34.92 POCT urinalysis dipstick manually resulted [...] of: Shania Antunez DO documented in this encounterMissouri Delta Medical CenterUdhqtjvpea74-07-7138 History of Present illness Narrative* SPIKE Guzman [...] ICD-10-CM 1. Screening, , for anatomic survey ([facility]) Z36.89 US OB 14+ weeks anatomy scan US OB 14+ weeks anatomy scan 2. STD exposure Z20.2 3. Vaginal discharge N89.8 SURESWAB(R) ADVANCED VAGINITIS PLUS, TMA CHLAMYDIA TRACHOMATIS (GENITO/STI) Neisseria gonorrhea DNA probe, direct 4. Second trimester ([facility]) Z34.92 5. 18 weeks gestation of ([facility]) Z3A.18 POCT urinalysis dipstick manually resulted [...] behalf of: SPIKE Guzman documented in this encounterMissouri Delta Medical CenterFtsthnxbnl13-20-9374 History of Present illness Narrative* Shania Antunez [...] nursing note reviewed. Exam conducted with a spring coverer present. Vitals: Estimated body mass index is [...] or undercooked meat, and stay away from [facility]. Patient has been consulted regarding any [...] of: Shania Antunez DO documented in this encounterMissouri Delta Medical CenterDdodjqexel69-31-4392 History of Present illness Narrative* Jose Antonio [...] your allergy medication. You reported that the SOCK MENDER said you could take zyrtec for your allergies. Continue on this medication. The medication should help with the fluid in the inner ear. No follow-ups on file. documented in this encounterMissouri Delta Medical [id number] History of Present illness Narrative* Heather Savage [...] or undercooked meat, and stay away from [facility]. 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 Exam conducted with a spring coverer present. 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) (CMS/HCC) Otalgia of both ears [facility] Diagnosis First trimester state, incidental 12 weeks gestation of Urinary tract infection without hematuria, site unspecified Other iron deficiency anemia documented [facility]* Diagnosis Screening, , for anatomic survey ([facility]) Encounter for anatomic survey STD exposure Vaginal discharge Leukorrhea, not specified as infective Second trimester ([facility]) state, incidental 18 weeks gestation of ([facility]) [facility]* Diagnosis 22 weeks gestation of ([facility]) Second trimester ([facility]) state, incidental Diabetes mellitus screening Screening for diabetes mellitus documented [facility] this [facility]* Diagnosis Cystitis- Primary Unspecified cystitis 26 weeks gestation of ([facility]) Second trimester ([facility]) state, incidental Gastroesophageal reflux in ([facility]) documented [facility]* Diagnosis Anemia, unspecified type- Primary 28 weeks gestation of ([facility]) Third trimester ([facility]) state, incidental Elevated glucose tolerance test Impaired glucose tolerance test documented [facility]* Diagnosis Third trimester ([facility]) state, incidental 30 weeks gestation of ([facility]) [facility]* Diagnosis Urinary tract infection without hematuria, site unspecified- Primary Third trimester ([facility]) state, incidental 32 weeks gestation of ([facility]) documented in this encounter [facility] Summary Purpose Family History No Family History Records FoundNo Family History Records Found Advance Directives No Advanced Directives Records FoundNo Advanced Directives Records Found Additional Source Comments INFORMATION SOURCE (unrecogn ized section and content) DATE CREATED AUTHOR 01/04/[address] [facility] DATE CREATED AUTHOR AUTHOR'S ORGANIZ ATION 08/27/2025 [facility] EPIC Care Teams (unrecognized sec tion and content) Team MemberRelationshipSpecialtyStart DateEnd Date Eliana Marquis MD [address] [facility] [address] [place] [address] [facility] - [facility] Jose Antonio Hernandes NP [address] [facility] [address] [place] [address] PCP - S [facility]07/27/24Team MemberRelationshipSpecialtyStart DateEnd Date Eliana Marquis MD [address] [place] [address] PCP - [facility]03/04/23 Jose Antonio Hernandes, [employer] SPECIALIST [address] [place] [address] [facility]07/27/24Team MemberRelationshipSpecialtyStart DateEnd Date Eliana Marquis MD [address] [place] [address] [facility]03/04/23Te MemberRelationshipSpecialtyStart DateEnd Date Eliana Marquis MD [address] [place] [address] [facility]03/04/23 Jose Antonio Hernandes, [employer] SPECIALIST [address] [place] [address] [facility]07/27/24Team MemberRelationshipSpecialtyStart DateEnd Date Eliana Marquis MD [address] [place] [address] [facility]03/04/23 Jose Antonio Hernandes, [employer] SPECIALIST [address] [place] [address] [facility]07/27/24Team MemberRelationshipSpecialtyStart DateEnd Date Eliana Marquis MD [address] [place] [address] [facility]03/04/23 Jose Antonio Hernandes, [employer] SPECIALIST [address] [place] [address] [facility]07/27/24Team MemberRelationshipSpecialtyStart DateEnd Date Eliana Marquis MD [address] [place] [address] [facility]03/04/23 Jose Antonio Hernandes, [employer] SPECIALIST [address] [place] [address] [facility]07/27/24Team MemberRelationshipSpecialtyStart DateEnd Date Eliana Marquis MD [address] [place] [address] [facility]03/04/23 Jose Antonio Hernandes, CY[employer] SPECIALIST [address] [place] [address] [facility]07/27/24Team MemberRelationshipSpecialtyStart DateEnd Date Eliana Marquis MD [address] [place] [address] [facility]03/04/23 Jose Antonio Hernandes, CY[employer]SP[employer] SPECIALIST [address] [place] [address] [facility]07/27/24Team MemberRelationshipSpecialtyStart DateEnd Date Eliana Marquis MD [address] [place] [address] PCP - GeneralFamily Medicine03/04/23Team MemberRelationshipSpecialtyStart DateEnd Date Eliana Marquis MD [address] [place] [address] PCP - GeneralFamily Medicine03/04/23Team MemberRelationshipSpecialtyStart DateEnd Date Eliana Marquis MD [address] [place] [address] PCP - GeneralFamily Medicine03/04/23Team MemberRelationshipSpecialtyStart DateEnd Date Eliana Marquis MD [address] [place] [address] PCP - GeneralFamily Medicine03/04/23Team MemberRelationshipSpecialtyStart DateEnd Date Eliana Marquis MD [address] [place] [address] PCP - GeneralFamily Medicine03/04/23Team MemberRelationshipSpecialtyStart DateEnd Date Eliana Marquis MD [address] [place] [address] PCP - GeneralFamily Medicine03/04/23Team MemberRelationshipSpecialtyStart DateEnd Date Eliana Marquis MD [address] [place] [address] PCP - GeneralFamily Medicine03/04/23Team MemberRelationshipSpecialtyStart DateEnd Date Eliana Marquis MD [address] [place] [address] PCP - GeneralFamily Medicine03/04/23Team MemberRelationshipSpecialtyStart DateEnd Date Eliana Marquis MD [address] [facility] [address] [place] [address] PCP - GeneralFamily Medicine03/04/23 Jose Antonio Hernandes NP [address] [facility] [address] [place] [address] PCP - [facility]//Team MemberRelationshipSpecialtyStart DateEnd Date Eliana Marquis MD [address] [facility] [address] [place] [address] [facility]03/04/23Team MemberRelationshipSpecialtyStart DateEnd Date Eliana Marquis MD [address] [facility] [address] [place] [address] PCP - [facility]03/04/23Team MemberRelationshipSpecialtyStart DateEnd Date Eliana Marquis MD [address] [facility] [address] [place] [address] P[facility]03/04/23Team MemberRelationshipSpecialtyStart DateEnd Date Eliana Marquis MD [address] [facility] [address] [place] [address] PCP - Generalmi Medicine03/04/23 Reason for Visit (unrecogniz ed section [...] BE BASED ON THE PRIMARY CLINICAL RECORDS. [facility] [employer] [facility]. provides no warranty or guarantee of the accuracy or completeness of information in this document.
--- OUTSIDE RECORDS SUMMARY | 2025-09-20 19:35 | XMS_ITS | Encounter Summary ---
Author Organization [facility] Address [address] [facility] [place] [address] Care Team Providers Care Admissions Recruiter Name Role Phone Eliana Flanagan MD Primary Care Provider [phone] Encounter Details DateTypeDepartmentCare Team (Latest Contact Info)Vbizqwvmcvb01/25/2025amboo flowsheet SANTINO AGUSTIN [address] [place] [address] Munira Yu PA [address] [place], [place] [id number] Social History Tobacco UseTypesPacks/DayYears UsedDateSmoking Tobacco: NeverPassive Smoke Exposure: NeverSmokeless Tobacco: NeverAlcohol UseStandard Drinks/WeekComments Never0 (1 standard drink = 0.6 oz pure alcohol)PHQ-2AnswerDate RecordedPatient Health Questionnaire-2 [id number] Date of Delivery UizfllteUvz70/19/2025Based on last menstrual period of 01/07/2025Sex and Gender InformationValueDate RecordedSex Assigned at BirthNot on fileLegal SexFemale 01/08/2023 6:51 PM EDTGender IdentityNot on fileSexual OrientationNot on file documented as of this encounter Plan of Treatment DateTypeDepartmentCare Team (Latest Contact Info)Rvuezwouiia27/02/2025 10:00 AM ESTAncillary Procedure [facility] [address] [place] [address] 09/27/2025 11:00 AM ESTRoutine [facility] [address] [place] [address] Alex Antunez DO [address] [place] [address] documented as of this encounter Visit Diagnoses Not on filedocumented in this encounter Care Teams Team MemberRelationshipSpecialtyStart DateEnd Date Eliana Flanagan MD [address] [facility] [address] [place] [address] PCP - GeneralFamily Medicine03/04/23documented as of this encounter
--- OUTSIDE RECORDS SUMMARY | 2025-09-20 19:35 | XMS_ITS | Encounter Summary ---
Author Organization [facility] Address [address] [facility] [place] [address] Care Team Providers Care Stripper Soft [employer] Name Role Phone Eliana Flanagan MD Primary Care Provider [phone] Encounter Details DateTypeDepartmentCare Team (Latest Contact Info)Mubhkqwyipr04/24/2025Telephone [facility] [place] [facility] [address] [place] [address] Darlene Olmstead, FELT HOOKER [address] [place] [address] Social History Tobacco UseTypesPacks/DayYears UsedDateSmoking Tobacco: NeverPassive Smoke Exposure: NeverSmokeless Tobacco: NeverAlcohol UseStandard Drinks/WeekComments Never0 (1 standard drink = 0.6 oz pure alcohol)PHQ-2AnswerDate RecordedPatient Health Questionnaire-2 [id number] Date of Delivery LrfyktszOjd10/19/2025Based on last menstrual period of 01/07/2025Sex and Gender InformationValueDate RecordedSex Assigned at BirthNot on fileLegal SexFemale 01/08/2023 6:51 PM EDTGender IdentityNot on fileSexual OrientationNot on file documented as of this encounter Miscellaneous Notes * Telephone Encounter - Hilaria Keys LPN - 09/19/2025 2:23 PM EST Hi, this is Rosemary. Over at [facility] scheduling phone number [phone] calling in regards to patient suzi garnica date of 11 to . We have her order for her injectafer infusions. However, the order is not signed. If someone could take a look, get that signed for us and send thatover. We will keep going with her pre cart and such. All right, thank you so much, have a great day. Order signed and sent back at this time so this can be worked on. documented in this encounter Plan of Treatment DateTypeDepartmentCare Team (Latest Contact Info)Emwvoblnwwi08/02/2025 10:00 AM ESTAncillary Procedure [facility] [address] [place] [id number] 09/27/2025 11:00 AM ESTRoutine [facility] EUBANKSN [address] [place] [id number] Alex Antunez DO [address] [facility] [address] [place], [place] [id number] documented as of this encounter Visit Diagnoses Not on filedocumented in this encounter Care Teams Team MemberRelationshipSpecialtyStart DateEnd Date Eliana Flanagan MD [address] [facility] [address] [place] [address] PCP - GeneralFamily Medicine03/04/23documented as of this encounter
--- OUTSIDE RECORDS SUMMARY | 2025-09-20 19:35 | XMS_ITS | Clinical Summary ---
Author Organization [facility] Healthcare Address [address] [place] [address] Care Team Providers Care Booth Operator Name Role Phone Eliana Flanagan MD Primary Care Provider [phone] Allergies Active AllergyReactionsCriticalityNoted BxeoDjiiqdhuDuwlpufausnTntitzq85/12/2024 Medications MedicationSigDispense QuantityRefillsLast FilledStart DateEnd DateStatus MV-Min-Fe [...] capsule 5Active cephalexin (Keflex) 500 MG capsule Indications:Hematuria, grossTake 1 capsule (500 mg) by mouth in the morning and 1 capsule (500 mg) in the evening and 1 capsule(500 mg) before bedtime. Do all this for 10 days. 30 capsule 511/5Active iron polysaccharides (ProFe) 391.3 (180 Fe) MG capsule Indications:Anemia, unspecified typeTake 1 capsule (391.3 mg) by mouth Daily 30 capsule 510/Expired cephalexin (Keflex) 500 MG capsule Indications:Urinary tract infection without hematuria, site unspecifiedTake 1 capsule (500 mg) by mouth in the morning and 1 capsule (500 mg) in the evening and 1 capsule(500 mg) before bedtime. Do all this for 7 days. 21 capsule 511/03/2025Expired Active Problems ProblemNoted DateDiagnosed DateSize of fetus inconsistent with dates, antepartum ([facility])08/10/2025PCOS (polycystic ovarian syndrome)09/07/2024urrent severe episode of major depressive disorder without psychotic features without prior msolcpj5712/30/2023Exercise-induced nwnimd5312/30/2023atellofemoral syndrome of right knee12/30/2023Estimated Date of JgzveultXblhekhsEtm03/19/2025ased on last menstrual period of 01/07/2025 Encounters DateTypeDepartmentCare FfrgRwxbnwzkcnq29/25/2025 2:00 PM ESTRoutine [facility] [place] [facility] [place] [address] Munira Yu PA Third trimester ([facility]); 36 weeks gestation of ([facility]); Poor growth affecting management of mother in third trimester, single or unspecified fetus ([facility])09/20/2025amboo flowsheet [facility] [place] AGUSTIN [address] [facility] [place] [phone] Munira Yu PA 09/19/2025bstract [facility] [place] AGUSTIN [address] [place] [address] [place] [phone] Darlene Olmstead NP 09/19/2025Telephone [facility] [place] Salazar [facility] [place] [phone] Darlene Olmstead NP 09/13/2025 9:20 AM ESTRoutine [facility] [place]azar [place] [phone] Alex Antunez, DO Third trimester ([facility]); 35 weeks gestation of ([facility]); Hematuria, gross09/13/2025amboo flowsheet [facility] [place] [facility] [address] [facility] [place] [address] Alex Antunez, DO 5Abstract [facility] [place] [facility] [address] [facility] [place] [address] Shani Hinds, [place] 09/07/2025linisync Result Encounter NOMS External Department Unsolicited Darlene Olmstead, [place] 09/06/2025Telephone [facility] [place] [facility] [address] [facility] [place] [address] Shani Hinds, [place] 08/27/2025linisync Result Encounter NOMS External Department Unsolicited Darlene Olmstead, [place] 08/26/2025Telephone [facility] [place] [facility] [address] [facility] [place] [address] Liliana Leahy MA 08/26/2025linisync Result Encounter NOMS External Department Unsolicited Darlene Olmstead, GREASE PRESS HELPER 08/25/2025 3:20 PM EDTRoutine [facility] [place] [facility] [address] [facility] [address] Munira Yu PA Urinary tract infection without hematuria, site unspecified (Primary Dx); Third trimester ([facility]); 32 weeks gestation of ([facility])08/25/2025amboo flowsheet [facility] [place] [facility] [address] [facility] [place] [phone] Munira Yu PA 08/22/2025linisync Result Encounter NOMS External Department Unsolicited Alex Antunez, DO 08/22/2025Telephone [facility] [place] [facility] [address] [facility] [place] [address] Anuja Green LPN 08/19/2025linisync Result Encounter NOMS External Department Unsolicited Alex Antunez, DO 08/11/2025 3:00 PM EDTRoutine [facility] [place] [facility] [address] [place] [address] [place] [address] Munira Yu PA Third trimester ([facility]); 30 weeks gestation of ([facility])08/11/2025 2:30 PM EDTAncillary Procedure [facility] [place]azar [facility] [address] Second trimester ([facility]); Cystitis; Size of fetus inconsistent with dates, antepartum ([facility])08/05/2025Patient Outreach [place] [address] [place] [address] Munira Degroot LPN 08/04/2025bstract [address] [place] [address] Munira Degroot LPN 07/27/2025 1:50 PM EDTRoutine [facility] [place] [facility] [place] [address] Darlene Olmstead, [place] Anemia, unspecified type (Primary Dx); 28 weeks gestation of ([facility]); Third trimester ([facility]); Elevated glucose tolerance test07/27/2025amboo flowsheet [facility] [place] Salazar [facility] [place] [address] Darlene Olmstead, [place] 07/26/2025Telephone NOM [place] AG[place] [address] [place] [address] [place] [address] Shani Hinds MA 5Clinisync Result Encounter NOMS External Department Unsolicited Provider, Generic External Data 07/13/2025 3:20 PM EDTRoutine [facility] [place]azar [facility] [place] [address] Alex Antunez DO Cystitis (Primary Dx); 26 weeks gestation of ([facility]); Second trimester ([facility]); [facility] Size of fetus inconsistent with dates, antepartum ([facility])5Bamboo [place] [address] Alex Antunez DO from Last 3 Months Family History RelationNameStatusCommentsFatherAliveMotherAlive Social History Tobacco UseTypesPacks/DayYears UsedDateSmoking Tobacco: NeverPassive Smoke Exposure: NeverSmokeless Tobacco: Never Tobacco Cessation:Counseling Given: Yes Alcohol UseStandard Drinks/WeekCommentsNever0 (1 standard drink = 0.6 oz pure alcohol)PHQ-2AnswerDate RecordedPatient Health Questionnaire-2 Pmcdj397 Estimated Date of QppvivwuWezwxlknShx19/19/2025Based on last menstrual period of 01/07/2025Sex and Gender InformationValueDate RecordedSex Assigned at BirthNot on fileLegal LdoWolqxn76/15/2023 6:51 PM EDTGender IdentityNot on file Sexual OrientationNot on file Last Filed Vital Signs Vital SignReadingTime TakenCommentsBlood Hkofutef400/6011 2:28 PM EST Erasr640304/05/2025 11:07 AM EDTTemperature--Respiratory Ggjq600504/05/2025 11:07 AM EDTOxygen Chyjoxwoqi04%04/05/2025 11:07 AM EDTInhaled Oxygen Concentration-- Cgcrff40.2 kg (172 lb 8 oz)09/20/2025 2:28 PM NDOKxzxyy631.6 cm (5' 4 ) 04/05/2025 11:07 AM EDTBody Mass Index29.6106 11:07 AM EDT Plan of Treatment DateTypeDepartmentCare Team (Latest Contact Info)Duuxqqbglqe19/02/2025 10:00 AM [place]An[place] [address] 09/27/2025 11:00 [place] [address] Alex Antunez, DO [address] [place] [address] [place] [address] Health MaintenanceDue DateLast DoneCommentsPneumococcal Vaccine: Pediatrics (0 to 5 Years) and At-Risk Patients (6 to 64 Years) (1 of 2 - PCV)2023OVID- 19 Vaccine (1 - 2024-26 season)2025Influenza Vaccine (#1)2025 Procedures Procedure NamePriorityDate/TimeAssociated DiagnosisCommentsPOCT URINALYSIS XWMCXYEDMjvnbvk25/25/2025 2:32 PM EST Third trimester ([facility]) POCT URINALYSIS EIWDPJHDBzmsdln48/18/2025 9:38 AM EST 35 weeks gestation of ([facility]) GJLWDKVUCMFNqetgeg38/12/2025 9:57 AM EST CCF IHRMACJVLsqxilm31/12/2025 9:57 AM EST MLR HEMOGLOBIN X3JDtoqawi45/01/2025 12:50 PM EDT ALL CBC WITH AUTO JSHCBkmkbzi50/31/2025 10:57 AM EDT POCT URINALYSIS GUBREWEFHrryzzk42/30/2025 3:40 PM EDT 32 weeks gestation of ([facility]) GLUCOSE TOLERANCE 3 PAIBUrjmqda49/27/2025 8:44 AM EDT URINE CULTURE, BCCHATCXhfewlt48/24/2025 12:18 PM EDT TBH URINE MICROSCOPIC ZKRQTlhugxs92/24/2025 12:18 PM EDT TBH UA (CLEAN/CATCH) GRADER PATROL/MICRO IF IND.Zkybflj0108/19/2025 12:18 PM EDT US OB FOLLOW UP TRANSABDOMINAL NVOHNXWSHjgrvmr90/17/2025 12:55 PM EDT Second trimester ([facility]) Cystitis Size of fetus inconsistent with dates, antepartum ([facility]) POCT URINALYSIS RPCXWUCQIycqdod48/16/2025 3:21 PM EDT Third trimester ([facility]) POCT URINALYSIS TQOIVNJVNmrxtly40/01/2025 2:06 PM EDT 28 weeks gestation of ([facility]) GLUCOSE 1 KVQWYcgruek60/29/2025 1:17 PM EDT ALL CBC WITH AUTO YUMSByuxwra54/29/2025 1:17 PM EDT URINARY TRACT INFECTION (HTRX)Ebidqwd8007/13/2025 4:23 PM EDT POCT URINALYSIS UPFOUJLFFdlpuaw54/17/2025 3:34 PM EDT 26 weeks gestation of ([facility]) Second trimester ([facility]) from Last 3 Months Results * (ABNORMAL) POCT urinalysis dipstick manually resulted (09/20/2025 2:32 PM EST) Only the most recent of6 resultswithin the time period is included. ComponentValueRef RangeTest MethodAnalysis TimePerformed AtPathologist Signature Color, UAYellowClarity, UAClearGlucose, UANegativeNegative - 2000(110) ++++ mg/dLBilirubin, UANegativeNegative - 4(70) +++ mg/dLKetones, UANegativeNegative - 160(16) ++++ mg/dLSpec Grav, UA1.0101 - 1.03Blood, UANegativeNegative - 50 Tarun/mcLpH, UA6.55 - 9Protein, UANegativeNegative - 2000(20) ++++ mg/dL Urobilinogen, UA0.20.2 - 12 mg/dLLeukocytes, UAPositiveNegative - 500+++ Joelle/mcL Comment:1+Nitrite, UANegativeNegative - PositiveSpecimen (Source)Anatomical Location / LateralityCollection Method / VolumeCollection TimeReceived TimeUrine 09/20/2025 2:32 PM EST Narrative Authorizing ProviderResult TypeResult StatusMunira [facility] TEST ENTER/EDIT ORDERABLESFinal Result * (ABNORMAL) TRANSFERRIN (09/07/2025 9:57 AM EST)ComponentValueRef RangeTest MethodAnalysis TimePerformed AtPathologist MwkxjfmynDOCRXDXALZR639(A)192 - 364 mg/dLTBHComment: Performed at: ?? - [facility] [address] ??[id number] Nurse Monitoring: Nate Don PhD, Phone: ??[phone] Specimen (Source)Anatomical Location / LateralityCollection Method / Volume Collection TimeReceived Time09/07/2025 9:57 AM EST09/07/2025 10:02 AM EST Narrative CLIN[facility] - 09/08/2025 12:09 PM EST Authorizing ProviderResult TypeResult StatusDarlene Olmstead NPLAB BLOOD ORDERABLESFinal ResultPerforming OrganizationAddressCity/State/ZIP CodePhone Number [facility] * (ABNORMAL) CCF FERRITIN (09/07/2025 9:57 AM EST)ComponentValueRef RangeTest MethodAnalysis TimePerformed AtPathologist SignatureFERRITIN6.0(L)8.0 - 252.0 ng/mLTBHSpecimen (Source)Anatomical Location / LateralityCollection Method / VolumeCollection TimeReceived Time09/07/2025 9:57 AM EST09/07/2025 10:02 AM EST Narrative CLIN[facility]YNC - 09/07/2025 11:54 AM EST Authorizing ProviderResult TypeResult StatusDarlene Olmstead NPCLINISYNCFinal ResultPerforming OrganizationAddressCity/State/ZIP CodePhone Number [facility] TB * MLR HEMOGLOBIN A1C (08/27/2025 12:50 PM EDT)ComponentValueRef RangeTest Method Analysis TimePerformed AtPathologist SignatureGLYCOHEMOGLOBIN A1C4.94.5 - 6.2 %TBHComment: ADA RECOMMENDED LIMIT 4.0 - 6.0 ADA THERAPEUTIC TARGET < 7.0 ACTION SUGGESTED > 7.0 ESTIMATED AVERAGE HASLXDQ23ss/dLTBHSpecimen (Source)Anatomical Location / LateralityCollection Method / VolumeCollection TimeReceived Time08/27/2025 12:50 PM EDT110/27/2024 12:51 PM EDT Narrative CLINISYNC - 08/27/2025 1:18 PM EDT Authorizing ProviderResult TypeResult StatusKristina Ishan NPCLINISYNCFinal ResultPerforming OrganizationAddressCity/State/ZIP CodePhone Number [facility] * (ABNORMAL) ALL CBC WITH AUTO [...] - 35.2 g/dLTBHTBH RDW13.611.0 - 15.0 %TBHTBH HWX843460 - 450 10 3/uLTBHTBH MPV11.19.5 - 13.5 [...] StatusDarlene Olmstead NPCLINISYNCFinal ResultPerforming OrganizationAddressCity/State/ZIP CodePhone Number [facility] * GLUCOSE TOLERANCE 3 HOUR (08/22/2025 8:44 [...] BLOOD ORDERABLES Final ResultPerforming OrganizationAddressCity/State/ZIP CodePhone Number [facility] * (ABNORMAL) URINE CULTURE, ROUTINE (08/19/2025 12:18 [...] ??O:CNSNSS Isolated TBHURINE CULTURE, ROUTINEPerformed at: - [facility]TBH[facility], [id number] [place], [place] [id number] CULTURE, ROUTINELab Director: Nate Don PhD, Phone: [phone] CULTURE, ROUTINE Organism: ??1.1 Antibiotic ? Interpretation [...] 12:18 PM EDT1 1:24 PM EDT Narrative [place] - 08/19/2025 1:32 PM EDT Authorizing ProviderResult TypeResult StatusCorey Tulio DOCLINISYNCFinal Result Performing OrganizationAddressCity/State/ZIP CodePhone Number [place] [facility] * (ABNORMAL) TBH UA (CLEAN/CATCH) GRADER PATROL/MICRO IF IND. (08/19/2025 12:18 PM EDT) ComponentValueRef RangeTest MethodAnalysis TimePerformed AtPathologist SignatureCOLOR URINELT. YELLOWYELLOWTBHCLARITY URINECLEARCLEARTBHSPECIFIC GRAVITY URINE1.0101.005 - 1.025TBHPH URINE7.05.0 - 9.0TBHPROTEIN URINENEGATIVE NEG/TRACE mg/dLTBHGLUCOSE URINE UANEGATIVENEGATIVE mg/dLTBHBILIRUBIN URINE NEGATIVENEGATIVETBHKETONES URINENEGATIVENEGATIVE mg/dLTBHBLOOD URINENEGATIVE NEGATIVETBHNITRITE URINENEGATIVENEGATIVETBHUROBILINOGEN URINE0.20.2 - 1.0 EU/dLTBHLEUKOCYTE ESTERASE URINESMALL(A)NEGATIVETBHURINE MICROSCOPIC INDICATED YESTBHSpecimen (Source)Anatomical Location / LateralityCollection Method / VolumeCollection TimeReceived Time08/19/2025 12:18 PM EDT1 1:24 PM EDT Narrative [place] - 08/19/2025 1:32 PM EDT Authorizing ProviderResult [...] EDT)ComponentValueRef RangeTest MethodAnalysis TimePerformed AtPathologist SignatureGLUCOSE 1 HXLT127(H)<130 mg/dLTBHSpecimen (Source)Anatomical Location / LateralityCollection Method / VolumeCollection TimeReceived Time07/25/2025 1:17 PM EDT07/25/2025 1:19 PM EDT Narrative CLINISYNC - 07/25/2025 1:47 PM EDT Authorizing ProviderResult TypeResult StatusAlex SABILLON BLOOD ORDERABLES Final ResultPerforming OrganizationAddressCity/State/ZIP CodePhone Number [facility] * URINARY TRACT INFECTION (HTRX) (07/13/2025 4:23 PM EDT)ComponentValueRef Range Test MethodAnalysis TimePerformed AtPathologist SignatureACINETOBACTER RKADPKWI335.961 - 24.689 ppm07/15/2025 7:29 AM EDTHealthTrackRx at [facility] ACINETOBACTER BAUMANIINot Uhdbdqfs98.961 - 24.689 ppm07/15/2025 7:29 AM EDT [facility] at LabPortCITROBACTER HCFRJEHP516.000 - 32.015 ppm07/15/2025 7:29 AM EDTHealthTrackRx at LabPortCITROBACTER FREUNDIINot Swndsrdn01.000 - 32.015 ppm09/ 7:29 AM EDTHealthTrackRx at LabPortENTEROBACTER AEROGENES, UAREHII216.000 - 32.290 ppm07/15/2025 7:29 AM EDTHealthTrackRx at LabPortENTEROBACTER AEROGENES, CLOACAENot Syzywklh92.000 - 32.290 ppm 07/15/2025 7:29 AM EDTHealthTrackRx at LabPortENTEROCOCCUS FAECALIS, FAECIUM0 26.000 - 33.043 ppm07/15/2025 7:29 AM EDTHealthTrackRx at LabPortENTEROCOCCUS FAECALIS, FAECIUMNot Bzyfhieb42.000 - 33.043 ppm07/15/2025 7:29 AM EDT [facility] at LabPortESCHERICHIA ACVO010.000 - 28.500 ppm07/15/2025 7:29 AM EDTHealthTrackRx at LabPortESCHERICHIA COLINot Gicvdixt06.000 - 28.500 ppm 07/15/2025 7:29 AM EDTHealthTrackRx at LabPortKLEBSIELLA PNEUMONIAE, OXYTOCA0 23.000 - 31.865 ppm07/15/2025 7:29 AM EDTHealthTrackRx at LabPortKLEBSIELLA PNEUMONIAE, OXYTOCANot Yakfpsrd96.000 - 31.865 ppm07/15/2025 7:29 AM EDT [facility] at LabPortMORGANELLA UBCBMVPG702.961 - 24.689 ppm07/15/2025 7:29 AM EDTHealthTrackRx at LabPortMORGANELLA MORGANIINot Hencrtnn55.961 - 24.689 ppm07/15/2025 7:29 AM EDTHealthTrackRx at LabPortPROTEUS MIRABILIS, VULGARIS0 23.000 - 28.500 ppm07/15/2025 7:29 AM EDTHealthTrackRx at LabPortPROTEUS MIRABILIS, VULGARISNot Yjrwcinn77.000 - 28.500 ppm07/15/2025 7:29 AM EDT [facility] at LabPortPSEUDOMONAS QELUVPDVOL975.000 - 31.801 ppm07/15/2025 7:29 AM EDTHealthTrackRx at LabPortPSEUDOMONAS AERUGINOSANot Icxauggu65.000 - 31.801 ppm07/15/2025 7:29 AM EDTHealthTrackRx at LabPortSTAPHYLOCOCCUS AUREUS0 26.000 - 31.595 ppm07/15/2025 7:29 AM EDTHealthTrackRx at [facility] STAPHYLOCOCCUS AUREUSNot Wdotogew56.000 - 31.595 ppm07/15/2025 7:29 AM EDT [facility] at LabPortSTREPTOCOCCUS AGALACTIAE (GROUP B STREP)026.000 - 32.435 ppm07/15/2025 7:29 AM EDTHealthTrackRx at LabPortSTREPTOCOCCUS AGALACTIAE (GROUP B STREP)Not Fgsdgxsj29.000 - 32.435 ppm07/15/2025 7:29 AM EDTHealthTrackRx at LabPortCANDIDA ALBICANS, PARAPSILOSIS, UKZXEGXKOC132.000 - 30.347 ppm07/15/2025 7:29 AM EDTHealthTrackRx at LabPortCANDIDA ALBICANS, PARAPSILOSIS, TROPICALISNot Zfkhjlhv53.000 - 30.347 ppm07/15/2025 7:29 AM EDT [facility] at LabPortCANDIDA SBQHPBSZ452.000 - 31.618 ppm07/15/2025 7:29 AM EDTHealthTrackRx at LabPortCANDIDA GLABRATANot Durzqjsp79.000 - 31.618 ppm 07/15/2025 7:29 AM EDTHealthTrackRx at LabPortCANDIDA QUPMTM504.000 - 30.873 ppm07/15/2025 7:29 AM EDTHealthTrackRx at LabPortCANDIDA KRUSEINot Detected 23.000 - 30.873 ppm07/15/2025 7:29 AM EDTHealthTrackRx at LabPortSERRATIA VZAINLLDYJ073.000 - 31.581 ppm07/15/2025 7:29 AM EDTHealthTrackRx at [facility] SERRATIA MARCESCENSNot Xbafzdcl49.000 - 31.581 ppm07/15/2025 7:29 AM EDT [facility] at LabPortSTREPTOCOCCUS PYOGENES (GROUP A STREP)019.961 - 24.689 ppm09/ 7:29 AM EDTHealthTrackRx at LabFranc[facility] HammondSTREPTOCOCCUS PYOGENES (GROUP A STREP)Not Qiiezskb29.961 - 24.689 ppm07/15/2025 7:29 AM EDTHealthTrackRx at LabPortSTAPHYLOCOCCUS EPIDERMIDIS, HAEMOLYTICUS, LUGDUNENSIS, SAPROPHYTICUS (YPHUT391.961 - 24.689 ppm07/15/2025 7:29 AM EDTHealth[facility]Rx at [facility] STAPHYLOCOCCUS EPIDERMIDIS, HAEMOLYTICUS, LUGDUNENSIS, SAPROPHYTICUS (URINANot Owbxhmpt49.961 - 24.689 ppm07/15/2025 7:29 AM EDTHealth[facility]Rx at [facility] STAPHYLOCOCCUS EPIDERMIDIS, HAEMOLYTICUS, LUGDUNENSIS, SAPROPHYTICUS (URINA0 19.961 - 24.689 ppm07/15/2025 7:29 AM EDTHealthTrackRx at LabFranc[facility] Hammond STAPHYLOCOCCUS EPIDERMIDIS, HAEMOLYTICUS, LUGDUNENSIS, SAPROPHYTICUS (URINANot Gammqcqt76.961 - 24.689 ppm07/15/2025 7:29 AM EDTHealthTrackRx at [facility] CenterPort Specimen (Source)Anatomical Location / LateralityCollection Method / Volume Collection TimeReceived HogsJrtyp36/17/2025 4:23 PM EDT07/15/2025 1:30 AM EDT Narrative Authorizing ProviderResult TypeResult StatusDarlene Olmstead NPLAB BLOOD ORDERABLESFinal ResultPerforming OrganizationAddressCity/State/ZIP CodePhone Number [facility] at LabFranciscan [facility] [address] [address] from Last 3 Months Insurance Care Teams Team MemberRelationshipSpecialtyStart DateEnd Date Eliana Flanagan MD [address] [facility] [address] [place] [address] PCP - [facility]03/04/23
--- OUTSIDE RECORDS SUMMARY | 2025-09-20 19:35 | XMS_ITS | Encounter Summary ---
Author Organization [facility] Address [address] [facility] [place] [address] Care Team Providers Care Visual Merchandising Manager Name Role Phone Eliana Flanagan MD Primary Care Provider [phone] Encounter Details DateTypeDepartmentCare Team (Latest Contact Info)Ycfheabwsiw16/14/2025bstract [place] [facility] [address] [place] [address] Shani Hinds [place] Social History Tobacco UseTypesPacks/DayYears UsedDateSmoking Tobacco: NeverPassive Smoke Exposure: NeverSmokeless Tobacco: NeverAlcohol UseStandard Drinks/WeekComments Never0 (1 standard drink = 0.6 oz pure alcohol)PHQ-2AnswerDate RecordedPatient Health Questionnaire-2 Urlcf994Estimated Date of Delivery FkaahsibVxh27/19/2025Based on last menstrual period of 01/07/2025Sex and Gender InformationValueDate RecordedSex Assigned at BirthNot on fileLegal SexFemale 01/08/2023 6:51 PM EDTGender IdentityNot on fileSexual OrientationNot on file documented as of this encounter Plan of Treatment DateTypeDepartmentCare Team (Latest Contact Info)Iudbfnihhta78/02/2025 10:00 AM ESTAncillary Procedure [facility] [facility] [address] [place] [address] 09/27/2025 11:00 AM ESTRoutine NOM[facility]el[facility] AGUSTIN [address] [place] [address] Alex Antunez, [address] [facility] [place] [address] documented as of this encounter Visit Diagnoses Not on filedocumented in this encounter Care Teams Team MemberRelationshipSpecialtyStart DateEnd Date Eliana Flanagan MD [address] [facility] [address] [place] [address] PCP - GeneralFamily Medicine03/04/23documented as of this encounter
--- OUTSIDE RECORDS SUMMARY | 2025-09-20 19:35 | XMS_ITS | Encounter Summary ---
Author Organization [facility] Address [address] [place] [address] Care Team Providers Care Shank Taper Name Role Phone Eliana Flanagan MD Primary Care Provider [phone] Encounter Details DateTypeDepartmentCare Team (Latest Contact Info)Iwdqgjbvfne87/11/2025Telephone [facility] [address] [place] [address] [place] [address] Shani Hinds [place] Social History Tobacco UseTypesPacks/DayYears UsedDateSmoking Tobacco: NeverPassive Smoke Exposure: NeverSmokeless Tobacco: NeverAlcohol UseStandard Drinks/WeekComments Never0 (1 standard drink = 0.6 oz pure alcohol)PHQ-2AnswerDate RecordedPatient Health Questionnaire-2 Fujxo766Estimated Date of Delivery MrnayrkeJbr76/19/2025Based on last menstrual period of 01/07/2025Sex and [...] Plan of Treatment DateTypeDepartmentCare Team (Latest Contact Info)Jrwwttzmosk16/02/2025 10:00 AM ESTAncillary Procedure [facility]UST[facility] [address] [facility] [place] [address] 09/27/2025 11:00 AM ESTRoutine [facility] [address] [facility] [place] [address] Alex Antunez DO [address] [facility] [address] [place], [place] [id number] NameTypePriorityAssociated DiagnosesOrder ScheduleFerritinLabRoutine Antepartum anemia ([facility]HS-HCC) Expected: 09/06/2025 (Approximate), Expires: 09/06/2026TransferrinLabRoutine Antepartum anemia ([facility]HS-HCC) Expected: 09/06/2025, Expires: 09/06/2026documented as of this encounter Visit Diagnoses Diagnosis Antepartum anemia ([facility]-HCC) documented in this encounter Care Teams Team MemberRelationshipSpecialtyStart DateEnd Date Eliana Flanagan MD [address] [facility] [address] [place] [address] PCP - GeneralFamily Medicine03/04/23documented as of this encounter
--- OUTSIDE RECORDS SUMMARY | 2025-09-20 19:35 | XMS_ITS | Encounter Summary ---
Author Organization [facility] Address [address] [place] [address] Care Team Providers Care Editor Continuity And Script Name Role Phone Eliana Flanagan MD Primary Care Provider Encounter Details DateTypeDepartmentCare Team (Latest Contact Info)Zaafkhhzgrw01/18/2025Bamboo flowsheet SANTINO BACAGYN [address] [employer] [place] [address] Alex Antunez DO [address] [address] [place], [place] [id number] Social History Tobacco UseTypesPacks/DayYears UsedDateSmoking Tobacco: NeverPassive Smoke Exposure: NeverSmokeless Tobacco: NeverAlcohol UseStandard Drinks/WeekComments Never0 (1 standard drink = 0.6 oz pure alcohol)PHQ-2AnswerDate RecordedPatient Health Questionnaire-2 [id number] Date of Delivery XbuawrcdQfn41/19/2025Based on last menstrual period of 01/07/2025Sex and Gender InformationValueDate RecordedSex Assigned at BirthNot on fileLegal SexFemale 01/08/2023 6:51 PM EDTGender IdentityNot on fileSexual OrientationNot on file documented as of this encounter Plan of Treatment DateTypeDepartmentCare Team (Latest Contact Info)Rvchndqcpzs65/02/2025 10:00 AM ESTAncillary Procedure [facility] [place] [facility] [address] [employer] [place] [address] 09/27/2025 11:00 AM ESTRoutine [facility] [address] [facility] [place] [address] Alex Antunez DO [address] [facility] [place] [address] documented as of this encounter Visit Diagnoses Not on filedocumented in this encounter Care Teams Team MemberRelationshipSpecialtyStart DateEnd Date Eliana Flanagan MD [address] [facility] [address] [place] [address] PCP - GeneralFamily Medicine03/04/23documented as of this encounter
--- OUTSIDE RECORDS SUMMARY | 2025-09-20 19:35 | XMS_ITS | Encounter Summary ---
Author Organization [facility] Address [address] [facility] [place] [address] Care Team Providers Care Equipment Validation Specialist Name Role Phone Eliana Flanagan MD Primary Care Provider [phone] Encounter Details DateTypeDepartmentCare Team (Latest Contact Info)Dkazqdxipej74/24/2025bstract SANTINO AGUSTIN [address] [place] [address] Darlene Olmstead, KAI WHAKARURUHAU [address] [place] [address] Social History Tobacco UseTypesPacks/DayYears UsedDateSmoking Tobacco: NeverPassive Smoke Exposure: NeverSmokeless Tobacco: NeverAlcohol UseStandard Drinks/WeekComments Never0 (1 standard drink = 0.6 oz pure alcohol)PHQ-2AnswerDate RecordedPatient Health Questionnaire-2 Vyfuy432Estimated Date of Delivery LmgufadnZxy58/19/2025Based on last menstrual period of 01/07/2025Sex and Gender InformationValueDate RecordedSex Assigned at BirthNot on fileLegal SexFemale 01/08/2023 6:51 PM EDTGender IdentityNot on fileSexual OrientationNot on file documented as of this encounter Plan of Treatment DateTypeDepartmentCare Team (Latest Contact Info)Rdexhitqglm47/02/2025 10:00 AM ESTAncillary Procedure SANTINO AGUSTIN [address] [place] [address] 09/27/2025 11:00 AM ESTRoutine [facility] [address] [facility] [address] Alex Antunez DO [address] [facility] [place] [address] documented as of this encounter Visit Diagnoses Not on filedocumented in this encounter Care Teams Team MemberRelationshipSpecialtyStart DateEnd Date Eliana Flanagan MD [address] [facility] [address] [place] [address] PCP - GeneralFamily Medicine03/04/23documented as of this encounter
--- OUTSIDE RECORDS SUMMARY | 2025-09-20 19:35 | XMS_ITS | Patient Health Record ---
Author Organization [facility] Address [address] [place] [address] Care Team Providers Care Offshoring Manager Name Role Phone Bethany Wells Primary Care Provider [phone] Dr. Adolfo Reagan Unavailable [phone] Reason For Referral No Information Plan Of Treatment No Information Insurance Providers Payer Name Payer Address Payer Phone Subscriber Number Group Number Insured Name Patient Relationship to Insured Coverage Start Date Coverage End Date [employer] [address] [address] [place] [address] [id number] JUNIOR TREJO DANETTE Self - patient is the insured [address] [facility] [address] [place] [id number], lf - patient is the xtbfaua6511/27/2022zAnthem BC Medicaid-termed 11/26/22[address] [place] [phone] AYALA, lf - patient is the [id number] DQ [place]-termed 11/26/22[address] [place] [phone] [id number], lf - patient is the insured [facility] MEDICAID [facility] after [place]-termed 11/26/22[address] [place] [id number], AUTUMNSelf - patient is the [id number] Crum DQ Terminated 10/26/24 [address] [place] [id number] AYALA, Roland - patient is the [id number] Wrap [employer] Crum BCBS Termed [address] [place] [phone] [id number], AUTUMNSelf - patient is the mvlipka0011/27/2022 09/25/2023
--- OUTSIDE RECORDS SUMMARY | 2025-09-20 19:35 | XMS_ITS | Encounter Summary ---
Author Organization [facility] Address [address] [place] [address] Care Team Providers Care Manager Of Selection And Assessment Name Role Phone Eliana Flanagan MD Primary Care Provider [phone] Encounter Details DateTypeDepartmentCare Team (Latest Contact Info)Fxfvbzggtnk17/12/2025linisync Result Encounter [facility] External Department Unsolicited Darlene [place], MARION [address] [place] [address] Social History Tobacco UseTypesPacks/DayYears UsedDateSmoking Tobacco: NeverPassive Smoke Exposure: NeverSmokeless Tobacco: NeverAlcohol UseStandard Drinks/WeekComments Never0 (1 standard drink = 0.6 oz pure alcohol)PHQ-2AnswerDate RecordedPatient Health Questionnaire-2 Yhoez110Estimated Date of Delivery FhqeqxsoFtz53/19/2025Based on last menstrual period of 01/07/2025Sex and Gender InformationValueDate RecordedSex Assigned at BirthNot on fileLegal SexFemale 01/08/2023 6:51 PM EDTGender IdentityNot on fileSexual OrientationNot on file documented as of this encounter Plan of Treatment DateTypeDepartmentCare Team (Latest Contact Info)Zjaybbvzsfp85/02/2025 10:00 AM ESTAncillary Procedure [facility] AGUSTIN [address] [place] [address] 09/27/2025 11:00 AM ESTRoutine [facility] AGUSTIN [address] [place] [address] Alex Antunez, DO [address] [facility] [address] documented as of this encounter Procedures Procedure NamePriorityDate/TimeAssociated DiagnosisCommentsTRANSFERRINRoutine 09/07/2025 9:57 AM EST [facility] HEVHFLEFLgjbibd03/12/2025 9:57 AM EST documented in this encounter Results * (ABNORMAL) TRANSFERRIN (09/07/2025 9:57 AM EST)ComponentValueRef RangeTest MethodAnalysis TimePerformed AtPathologist OmezarcjtQCJBTLAPKBN546(A)192 - 364 mg/dLTBHComment: Performed at: ?? - [facility] ??[id number] Assistant Professor Of Dietetics: Nate Don PhD, Phone: ??[phone] Specimen (Source)Anatomical Location / LateralityCollection Method / Volume Collection TimeReceived Time09/07/2025 9:57 AM EST09/07/2025 10:02 AM EST Narrative [facility] - 09/08/2025 12:09 PM EST Authorizing ProviderResult TypeResult StatusDarlene Olmstead NPLAB BLOOD ORDERABLESFinal ResultPerforming OrganizationAddressCity/State/ZIP CodePhone Number [facility] * (ABNORMAL) [facility] FERRITIN (09/07/2025 9:57 AM EST)ComponentValueRef RangeTest MethodAnalysis TimePerformed AtPathologist SignatureFERRITIN6.0(L)8.0 - 252.0 ng/mLTBHSpecimen (Source)Anatomical Location / LateralityCollection Method / VolumeCollection TimeReceived Time09/07/2025 9:57 AM EST09/07/2025 10:02 AM EST Narrative [facility] - 09/07/2025 11:54 AM EST Authorizing ProviderResult TypeResult StatusDarlene Olmstead NPCLINISYNCFinal ResultPerforming OrganizationAddressCity/State/ZIP CodePhone Number [facility] TB documented in this encounter Visit Diagnoses Not on filedocumented in this encounter Care Teams Team MemberRelationshipSpecialtyStart DateEnd Date Eliana Flanagan MD [address] [place] [address] PCP - GeneralFamily Medicine03/04/23documented as of this encounter
== END 2025-09-20 19:31 | disposition home or self-care (01) ==
LOC: LAB 19:30
PROVIDERS: PCP Family Medicine; Visit Provider Physician Assistant
DX: Z34.93 Encounter for supervision of normal pregnancy, unspecified, third trimester (principal)
CPT/HCPCS: 87081

== ENCOUNTER 2025-09-30 19:59 | Outpatient (OUT) | payer OTHER, SELFPAY ==
--- OUTSIDE RECORDS SUMMARY | 2025-09-30 20:03 | XMS_ITS | CCD ---
Author Organization [facility] CliniSymo Care Team Providers Care Leadership Program Internship Name Role Phone BENITEZ, DR MUNOZ Primary [...] Eliana Marquis MD Primary Care Provider Cecilio ACETYLENE TORCH OPERATOR, Jose Antonio Neri Unavailable Cecilio ACETYLENE TORCH OPERATOR, Jose Antonio Neri Unavailable [phone] JOSE ANTONIO HERNANDES Attending Unavailable SHANIA ANTUNEZ Attending Unavailable MUNIRA GARCIA Attending Unavailable MUNIRA GARCIA Referring Unavailable SHANIA ANTUNEZ Attending Unavailable SHANIA ANTUNEZ Attending Unavailable SHANIA ANTUNEZ Attending Unavailable DARLENE OLMSTEAD Attending Unavailable DARLENE OLMSTEAD Referring Unavailable MUNIRA GARCIA Attending Unavailable MUNIRA GARCIA Attending Unavailable Allergies Allergy ClassificationReported Allergen(s)Allergy TypeDate of OnsetReaction(s) Facility (1 source)PenicillinsDrug allergy (disorder)60-63-0916[facility] (20 sources)PenicillinsDrug Hkuqgzi81-29-0900BnvgyyjAAKQ Healthcare Medications Current Medications MedicationDrug Class(es)DatesSig (Normalized)Sig (Original)[id number] 200 actuat albuterol 0.09 mg/actuat metered dose inhaler (9 sources)beta2-Adrenergic Agonist End: 34-53-7190uicn 2 puff(s) by inhalation every four hours for wheezing albuterol HFA (ProAir HFA) 90 mcg/act inhaler Inhale 2 puffs every 4 (four) hours if needed for wheezing or shortness of breath 04/05/2025 Discontinued (Other)cephalexin 500 mg oral capsule (4 sources)Cephalosporin AntibacterialStart: 08-25-2025 End: 18-10-4376zihh 1 capsule by mouth in the morning, [...] oral tablet (9 sources)Histamine-1 Receptor Antagonist End: 87-17-0489xwou 1 tablet by mouth once dailyfexofenadine ([facility] Allergy Relief) 180 MG tablet Take 180 mg by mouth Daily 04/05/2025 Discontinued (Other) magnesium oxide 400 mg oral tablet (5 sources)Start: 03-10-2025 End: 43-16-0441odub 1 tablet by mouth once dailymagnesium oxide (Mag-Ox) 400 MG tablet Indications: headache in first trimester Take 1 tablet (400 mg) by mouth Daily 30 tablet 11 03/10/2025 04/05/2025 Discontinued (Other) nitrofurantoin, macrocrystals 25 mg / nitrofurantoin, monohydrate 75 mg oral capsule (5 sources)Nitrofuran AntibacterialStart: 07-13-2025 End: 45-33-3233aoui 1 capsule by mouth in the morningnitrofurantoin, macrocrystal-monohydrate, (Macrobid) 100 MG capsule Indications: Cystitis Take 1 capsule (100 mg) by mouth in the morning and 1 capsule (100 mg) before bedtime. Do all this for 7 days. 14 capsule 07/13/2025 07/20/2025 ActiveStart: 04-06-2025 End: 79-34-8767mlke 1 capsule by mouth in the morningnitrofurantoin, macrocrystal-monohydrate, (Macrobid) 100 MG capsule Indications: Urinary tract infection without hematuria, site unspecified Take 1 capsule (100 mg) by mouth in the morning and 1 capsule (100 mg) before bedtime. Do all this for 7 days. 14 capsule 04/06/2025 04/13/2025 ActiveStart: 03-10-2025 End: 04-62-8242lbaq 1 capsule by mouth in the morningnitrofurantoin, macrocrystal-monohydrate, (Macrobid) 100 MG capsule Indications: UTI symptoms Take 1 capsule (100 mg) by mouth in the morning and 1 capsule (100 mg) before bedtime. Do all this for 7 days. 14 capsule 03/10/2025 03/17/2025 Active omeprazole 20 mg delayed release oral capsule (16 sources)Proton Pump InhibitorStart: 07-13-2025 End: 47-56-5532roru 1 capsule by mouth before mealtimeomeprazole (PriLOSEC) [address] capsule Indications: Gastroesophageal Reflux Disease , Heartburn Take 1 capsule (20 mg) by mouth in the morning. Take before meals. Do not crush or chew. 30 capsule 3 07/13/2025 Activeondansetron 4 mg disintegrating oral tablet (8 sources)Serotonin-3 Receptor AntagonistStart: 03-10-2025 End: 26-20-7594afyr 1 tablet by mouth every six hours for nauseaondansetron ODT (Zofran-ODT) 4 MG disintegrating tablet Indications: Nausea and vomiting in Take 1 tablet (4 mg) by mouth every 6 (six) hours if needed for nausea or vomiting 30 tablet 2 03/10/2025 04/09/2025 Activepolysaccharide iron complex 391 mg oral capsule (12 sources)Start: 07-27-2025 End: 46-64-8270ekdh 1 capsule by mouth once dailyiron polysaccharides (ProFe) 391.3 (180 Fe) MG capsule Indications: Anemia, unspecified type Take 1capsule (391.3 mg) by mouth Daily 30 capsule 6 07/27/2025 08/26/2025 ActiveStart: 04-06-2025 End: 66-54-9132uxlq 1 capsule by mouth once dailyiron polysaccharides [...] capsule (5 sources)Serotonin Reuptake InhibitorStart: 11-18-2022 End: 66-10-0378zlkp 1 capsule by mouth once dailyFLUoxetine (PROzac) 10 MG capsule Take 1 capsule by mouth 1 (one) time each day at the same time 03/10/2025 Discontinued (Other)fluticasone propionate 0.05 mg/actuat metered dose nasal spray (5 sources)Corticosteroid End: 07-59-3905onno 1 spray(s) nasal route once dailyfluticasone (Flonase) 50 MCG/ACT nasal spray Administer 1 spray into each nostril 1 (one) time eachday at the same time 03/10/2025 Discontinued (Other)24 hr metFORMIN hydrochloride 500 mg extended release oral tablet (5 sources)BiguanideStart: 06-07-2024 End: 28-81-4574rrva 1 tablet by mouth every twenty-four hours at mealtime metFORMIN XR (Glucophage-XR) 500 MG 24 hr tablet Indications: PCOS (polycystic ovarian syndrome) Take 1 tablet (500 mg) by mouth in the evening. Take with meals Do not crush, chew, or split. 30 tablet 11 06/07/2024 03/10/2025 Discontinued (Other) Problems Problem ClassificationProblemDateDocumented DateEpisodic/ChronicAbdominal pain (10 sources)Pelvic and perineal pain; Translations: [Unspecified abdominal pain] Onset: 96-52-2123RewvnzcvWjnhjt (20 sources)Exercise-induced asthma; Translations: [Exercise induced bronchospasm]Onset: 599356-66-7995IkmhvrnDcfywazpvp and other anemia (2 sources)Iron deficiency anemia; Translations: [Other iron deficiency anemias] 71-54-7613NcrzburtEhgqtfgebt and other anemia (2 sources)Anemia; Translations: [Anemia, unspecified]71-52-6498CpuyuyunTkmrukad mellitus without complication (2 sources)Abnormal glucose tolerance test; Translations: [Other abnormal glucose]25-12-7527KaznqxomZdrztijoi of teeth and jaw (2 sources)Jaw pain; Translations: [Jaw pain]46-79-6680SwjxmydlZogjpsqjkdnnm congenital anomalies (1 source)Bicornate uterus; 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]Onset: 10-18-2021 ChronicGenitourinary symptoms and ill-defined conditions (1 source)Urinary symptoms ; Translations: [Unspecified symptoms and signs involving the genitourinary system]20-61-9291ZlozxnwwMjabztcnvzooy and screening for infectious disease (2 sources)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; Translations: [Contact with and (suspected) exposure to infections with a predominantly sexual mode of transmission]45-01-1890FhhlokwsKlnbr disorders and dislocations; trauma-related (20 sources)Patellofemoral syndrome of right knee; Translations: [Patellofemoral disorders, right knee]Onset: 138146-37-7374MxjblyfIvvsmfrmg disorders (1 source)Missed period; Translations: [Irregular menstruation, unspecified] 38-08-8151MzfrjctOsgj disorders (20 sources)Severe major depression, single episode, without psychotic features; Translations: [Major depressive disorder, single episode, severe without psychotic features]Onset: 409369-78-3130FspqsiwQcdwa complications of (1 source)Vomiting of , unspecified; Translations: [Unspecified vomiting of , unspecified as to episode of care or not applicable] 18-07-5059LdmcyosxGctdh complications of (1 source)Headache; Translations: [Other specified related conditions, first trimester]72-84-1475ImycjqyeHximk complications of (2 sources)Gastroesophageal reflux disease in ; Translations: [Diseases of the digestive system complicating , unspecified trimester] 81-59-7035CrztrosoCbehs complications of (11 sources) size does not accord with dates; Translations: [Uterine size- date discrepancy, unspecified trimester]Onset: 892738-51-2410MyagdkgiTlzcc ear and sense organ disorders (2 sources)Bilateral earache; Translations: [Otalgia, bilateral]04-05-2025 EpisodicOther endocrine disorders (20 sources)Polycystic ovary syndrome; Translations: [Polycystic ovarian syndrome]Onset: 536108-98-7473OvxqmkiElqch endocrine disorders (2 sources)Disorder of endocrine system; Translations: [Endocrine disorder, unspecified]42-96-2267QayskpgzDtzzc female genital disorders (2 sources)Pain in female genitalia on intercourse; Translations: [Unspecified dyspareunia]38-63-2373YcuavvsKgyjh female genital disorders (2 sources)Vaginal discharge; Translations: [Other specified noninflammatory disorders of vagina]34-20-2878PyjbpcstTtcpi and delivery including normal (16 sources); Translations: [Encounter for supervision of normal , unspecified, unspecified trimester]84-69-0132LxidreomQvtwd screening for suspected conditions (not mental disorders or infectious disease) (4 sources)Patient encounter status; Translations: [Encounter for other specified screening]16-23-9973CndukntaRhvpeed cyst (5 sources)Unspecified ovarian cyst, left side; Translations: [UNSPECIFIED OVARIAN CYST LEFT SIDE]Onset: 15-89-9948OwmtasrdTfxwapsm codes; unclassified (2 sources)Gestation period, 12 weeks; Translations: [12 weeks gestation of ]77-89-3847XeyomlsjXjycntbj codes; unclassified (2 sources)Gestation period, 18 weeks; Translations: [18 weeks gestation of ]37-37-8710VtdaafxzEazbolsf codes; unclassified (2 sources)Gestation period, 22 weeks; Translations: [22 weeks gestation of ]64-85-3442JikmadrwKysynstc codes; unclassified (2 sources)Gestation period, 26 weeks; Translations: [26 weeks gestation of ]94-44-4064BqlgvljdZfjwtqjh codes; unclassified (2 sources)Gestation period, 28 weeks; Translations: [28 weeks gestation of ]17-01-0427UaukpvwmLbyxloxi codes; unclassified (2 sources)Gestation period, 30 weeks; Translations: [30 weeks gestation of ]98-47-0024SydegwfwPajsqjtp codes; unclassified (2 sources)Gestation period, 32 weeks; Translations: [32 weeks gestation of ]23-50-7294EdrsilgnMcqlfny tract infections (6 sources)Urinary tract infectious disease; Translations: [Urinary tract infection, site not specified]16-34-6000Blwljdlp Results Test NameValueInterpretationReference RangeFacilityCCF FERRITINon 09-07-2025 Ferritin [Mass/Vol]6.0 ng/mLLow8.0 - 252.0 ng/mLNST. MARY[facility] HealthcareInterpretation and review of laboratory resultsAbnoConemaugh Meyersdale Medical CenterCLINISYNCNST. [facility] Healthcare MLR HEMOGLOBIN A1Con 67-26-8164Hnspepi [Mass/Vol]94 mg/dLNOAZ DsrgnxhroyTdC0p (Bld) [Mass fraction]4.9 %4.5 - 6.2 %[facility] HealthcareComment on above:ADA RECOMMENDED LIMIT 4.0 - 6.0 ADA THERAPEUTIC TARGET < 7.0 ACTION SUGGESTED > 7.0 CLINISYNCNOAZ HealthcareALL CBC WITH AUTO DIFFon 37-00-7217AHHCQPHDN ABSOLUTE AUTO0.0NOAZ HealthcareBasophils/100 WBC (Bld)0.3 %0.2 - 2.0 %[facility] Eosinophils/100 WBC (Bld)0.9 %0.9 - 7.0 %[facility] HealthcareErythrocyte distribution width (RBC) [Ratio]13.6 %11.0 - 15.0 %NOM HealthcareHematocrit (Bld) [Volume fraction]28.5 %Low36.0 - 48.0 %NOM HealthcareHemoglobin (Bld) [Mass/Vol]9.4 g/dLLow12.0 - 16.0 g/dLNOBarnes-Jewish West County HospitalIMMATURE GRANULOCYTES ABS AUTO0.03NOAZ HealthcareImmature granulocytes/100 WBC (Bld)0.4 %0.0 - 0.5 %[facility] Interpretation and review of laboratory resultsAbCorewell Health [facility] LYMPHOCYTES ABSOLUTE AUTO1.0LowSt. Joseph Medical CenterLymphocytes/100 WBC (Bld)13.7 %Low 20.5 - 60.0 %[facility]oxHealthH (RBC) [Entitic mass]26.1 pgLow26.7 - 34.0 pgCoxHealthHC (RBC) [Mass/Vol]33.0 g/dL29.9 - 35.2 g/dLCoxHealthV (RBC) [Entitic vol]79.2 fLLow81.0 - 99.0 fLSt. Joseph Medical CenterMONOCYTES ABSOLUTE AUTO0.6 [facility] HealthcareMonocytes/100 WBC (Bld)7.3 %1.7 - 12.0 %[facility] NEUTROPHILS ABSOLUTE AUTO5.8St. [facility] Medical CenterNeutrophils/100 WBC (Bld)77.4 %High 43.0 - 75.0 %[facility] Medical CenterPlatelet mean volume (Bld) [Entitic vol]11.1 fL9.5 - 13.5 fLSt. Joseph Medical CenterTB EO #0.1NOMS CentervilleTB RBC274ESAIColumbia Regional Hospital RBC 3.60LowNOBarnes-Jewish West County HospitalTB WBC7.5St. [facility] CenterCLINISYNCNHawthorn Children's Psychiatric [facility] Urinalysis macro (dipstick) panel (U)on 30-34-0113Hntkcpgeh, UANegativeNegative - 4(70) +++ mg/dLNOMS HealthcareBlood, UANegativeNegative - 50 Tarun/mcLNOMS HealthcareClarity, UAClearNOAZ HealthcareColor, UAYellowNOAZ HealthcareGlucose, UANegativeNegative - 1999(110) ++++ mg/dLNOAZ HealthcareInterpretation and review of laboratory resultsAbnoConemaugh Meyersdale Medical CenterKetones, UANegativeNegative - 160(16) ++++ mg/dLDELTA [facility] HealthcareLeukocytes, UA1+Negative - 500+++ Joelle/mcLNOMS HealthcareNitrite, UANegativeNegative - PositiveNOMS HealthcarepH, UA6.05 - 9 NOM HealthcareProtein, UATraceNegative - 2000(20) ++++ mg/dLNOMS HealthcareSpec Grav, UA1.0101 - 1.03NOMS HealthcareUrobilinogen, UA2.00.2 - 12 mg/dLNOAZ HealthcareNOMS HealthcareGLUCOSE TOLERANCE 3 HOURon 67-31-6918SIHOPAJ TOLERANCE 3 HOURmg/dLNOMS HealthcareComment on above:GLU FAST 75 (<95) Col: 08/22/25 0844 GLU 1HR () Col: 08/22/25 0928 GLU 2HR () Col: 08/22/25 1028 GLU 3HR () Col: 08/22/25 1128 CLINISYNCNOMS HealthcareTBH UA (CLEAN/CATCH) GIRL FRIDAY/MICRO IF IND.on 08-19-2025 BILIRUBIN URINENegativeNEGATIVENOMS HealthcareBLOOD URINENegativeNEGATIVENOMS [...] HealthcareCLINISYNCNOMS HealthcareUS OB FOLLOW UP TRANSABDOMINAL APPROACHon 98-20-3458EJ OB FOLLOW UP TRANSABDOMINAL APPROACHFINDINGS: Comparison May [...] Delivery: 10/14/25 Gestational Age as of 07/13/2025: 01m8xGmbwrikldf macro (dipstick) panel (U)on 51-85-2866Tazcovqfs, UANegativeNegative - 4(70) +++ mg/dLNOMS HealthcareBlood, UANegativeNegative [...] mg/dLNOMS HealthcareNOMS HealthcareUrinalysis macro (dipstick) panel (U)on 63-41-2358Leneozgin, UA NegativeNegative - 4(70) +++ mg/dLNOMS HealthcareBlood, UANegativeNegative - 50 Tarun/mcLNOMS HealthcareClarity, UAClearNOMS HealthcareColor, UAYellowNOMS HealthcareGlucose, UANegativeNegative - 1999(110) ++++ mg/dLNOMS Healthcare Interpretation and review of laboratory resultsNormalSt. Joseph Medical CenterKetones, UA NegativeNegative - 160(16) ++++ mg/dLSt. Joseph Medical CenterLeukocytes, UANegative Negative - 500+++ Joelle/mcLNOBarnes-Jewish West County HospitalNitrite, UANegativeNegative - Positive NOM HealthcarepH, UA75 - 9NOAZ HealthcareProtein, UANegativeNegative - 2000(20) ++++ mg/dLSt. Joseph Medical CenterSpec Grav, UA1.0051 - 1.03NOBarnes-Jewish West County HospitalUrobilinogen, UA2.00.2 - 12 mg/dLCox Branson HealthcareALL CBC WITH AUTO DIFFon 98-58-5238DNHQTXGBA ABSOLUTE HEKR9VWSNSt. Joseph Medical CenterBasophils/100 WBC (Bld)0.3 %0.2 - 2.0 %[facility] CenterEosinophils/100 WBC (Bld)1.3 %0.9 - 7.0 %[facility] Erythrocyte distribution width (RBC) [Ratio]14.3 %11.0 - 15.0 %[facility] Hematocrit (Bld) [Volume fraction]32 %Low36.0 - 48.0 %[facility] CenterHemoglobin (Bld) [Mass/Vol]10.4 g/dLLow12.0 - 16.0 g/dLSt. Joseph Medical CenterIMMATURE GRANULOCYTES ABS AUTO0.03[facility] CenterImmature granulocytes/100 WBC (Bld)0.4 %0.0 - 0.5 % [facility] CenterInterpretation and review of laboratory resultsAbnoConemaugh Meyersdale Medical CenterLYMPHOCYTES ABSOLUTE WLWM8HjkLXML CentervilleLymphocytes/100 WBC (Bld) 14 %Low20.5 - 60.0 %CoxHealthH (RBC) [Entitic mass]26.2 pgLow26.7 - 34.0 pgSt. Joseph Medical CenterMCHC (RBC) [Mass/Vol]32.5 g/dL29.9 - 35.2 g/dLSt. Joseph Medical Center MCV (RBC) [Entitic vol]80.6 fLLow81.0 - 99.0 fLSt. Joseph Medical CenterMONOCYTES ABSOLUTE AUTO0.3NOBarnes-Jewish West County HospitalMonocytes/100 WBC (Bld)4 %1.7 - 12.0 %[facility] NEUTROPHILS ABSOLUTE AUTO5.7NOBarnes-Jewish West County HospitalNeutrophils/100 WBC (Bld)80 %High43.0 - 75.0 %NOM[facility] HealthcarePlatelet mean volume (Bld) [Entitic vol]10.9 fL9.5 - 13.5 fLNOMS HealthcareTBH EO #0.1NOMS HealthcareTBH GDZ477TMFS HealthcareTBH RBC3.97 LowNOMS HealthcareTBH WBC7.1NOMS HealthcareCLINISYNCNOMS HealthcareUrinalysis macro (dipstick) panel (U)on 27-41-3144Ttcjcsguz, UANegativeNegative - 4(70) +++ mg/dLNOMS HealthcareBlood, UANegativeNegative [...] - 1.03N[facility] Healthcare Urobilinogen, UA1.00.2 - 12 mg/dLNOAZ HealthcareNOAZ HealthcareRECURRENT VAGINITIS (HTRX)on 85-41-3315WIOKUROJO VMQEJIK3SAWD HealthcareATOPOBIUM VAGINAE Not detectedNOMS HealthcareBVAB 2,3 (BACTERIAL VAGINOSIS ASSOCIATED BACTERIA 2, 3); MOBILUNCUS SPP22.558AbnormalNOAZ HealthcareBVAB 2,3 (BACTERIAL VAGINOSIS ASSOCIATED BACTERIA 2, 3); MOBILUNCUS SPPDetectedAbnormalNOAZ HealthcareCANDIDA ALBICANS, PARAPSILOSIS, WPVSBDIWVB8KMMH HealthcareCANDIDA ALBICANS, PARAPSILOSIS, TROPICALISNot detectedNOMS HealthcareCANDIDA QQSNCJGO6RFLX HealthcareCANDIDA GLABRATANot detectedNOMS HealthcareCANDIDA NOXGTA6SCHD HealthcareCANDIDA KRUSEINot detectedNOMS HealthcareCHLAMYDIA XZZRBYYNHCN3KBOJ HealthcareCHLAMYDIA TRACHOMATISNot detectedNOMS HealthcareERMB, C; MEFA25.177 AbnormalNOMS HealthcareERMB, C; MEFADetectedAbnormalNOMS HealthcareGARDNERELLA KTJSYWCQL96.544AbnormalNOMS HealthcareGARDNERELLA VAGINALISDetectedAbnormalNOAZ HealthcareInterpretation and review of laboratory resultsAbnormalNOAZ Healthcare MEGASPHAERA (TYPES 1, 2)0NOMS HealthcareMEGASPHAERA (TYPES 1, 2)Not detectedNOMS HealthcareMYCOPLASMA MDPUOFVKLK9LAXR HealthcareMYCOPLASMA GENITALIUMNot detected NOMS HealthcareNEISSERIA MYRZZKNECEV2QBSA HealthcareNEISSERIA GONORRHOEAENot detectedNOMS HealthcareTET B, TET M21.747AbnormalNOMS HealthcareTET B, TET M DetectedAbnormalNOMS HealthcareTRICHOMONAS ZMVXNSODT0IDLX HealthcareTRICHOMONAS VAGINALISNot detectedNOMS HealthcareNOAZ HealthcareUS OB 14+ WEEKS ANATOMY SCAN on 38-71-1359HR OB 14+ WEEKS ANATOMY SCANFINDINGS: A single, [...] Delivery: 10/14/25 Gestational Age as of 05/18/2025: 99t4mUdicdluqxi macro (dipstick) panel (U)on 39-15-1069Bsdyizyiz, UANegativeNegative - 4(70) +++ mg/dLNOMS HealthcareBlood, UANegativeNegative [...] HealthcareNOMS Healthcare Urinalysis macro (dipstick) panel (U)on 61-27-6312Cwaqentay, UANegativeNegative - 4(70) +++ mg/dLNOMS HealthcareBlood, UAPositiveNegative - 50 Tarun/mcLNOAZ HealthcareComment on above:traceClarity, UACloudyNOMS HealthcareColor, UAYellow NOMS HealthcareGlucose, UANegativeNegative - 2000(110) ++++ mg/dLNOAZ Healthcare Interpretation and review of laboratory resultsAbnormalNOAZ HealthcareKetones, UANegativeNegative - 160(16) ++++ mg/dLNOAZ HealthcareLeukocytes, UATrace Negative - 500+++ Joelle/mcLNOAZ HealthcareNitrite, UAPositiveNegative - Positive NOMS HealthcareComment on above:positivepH, UA7.55 - 9NOAZ HealthcareProtein, UA NegativeNegative - 2000(20) ++++ mg/dLNOAZ HealthcareSpec Grav, UA1.021 - 1.03 NOMS HealthcareUrobilinogen, UA0.20.2 - 12 mg/dLNOBarnes-Jewish West County HospitalNOAZ Healthcare ALL CBC WITH AUTO DIFFon 99-06-6789LMRUYEQOK ABSOLUTE IWQS5WDGT Healthcare Basophils/100 WBC (Bld)0.5 %0.2 - 2.0 %NOMS HealthcareEosinophils/100 WBC (Bld) 2.5 %0.9 - 7.0 %NOM HealthcareErythrocyte distribution width (RBC) [Ratio]17.3 %High11.0 - 15.0 %NOMS HealthcareHematocrit (Bld) [Volume fraction]32.1 %Low36.0 - 48.0 %NOM HealthcareHemoglobin (Bld) [Mass/Vol]10.4 g/dLLow12.0 - 16.0 g/dL NOMS CentervilleIMMATURE GRANULOCYTES ABS AUTO0.01NOAZ HealthcareImmature granulocytes/100 WBC (Bld)0.1 %0.0 - 0.5 %NOM HealthcareInterpretation and review of laboratory resultsAbnormalDELTA [facility] HealthcareLYMPHOCYTES ABSOLUTE AUTO1.1 LowNOAZ HealthcareLymphocytes/100 WBC (Bld)14.4 %Low20.5 - 60.0 %[facility]OMSaint [facility] MCH (RBC) [Entitic mass]23.8 pgLow26.7 - 34.0 pgNOBarnes-Jewish West County HospitalMCHC (RBC) [Mass/Vol]32.4 g/dL29.9 - 35.2 g/dLNOMS HealthcareMCV (RBC) [Entitic vol]73.5 fL Low81.0 - 99.0 fLNOMS HealthcareMONOCYTES ABSOLUTE AUTO0.5NOMS Healthcare Monocytes/100 WBC (Bld)7.1 %1.7 - 12.0 %NOMS HealthcareNEUTROPHILS ABSOLUTE AUTO 5.5NOMS HealthcareNeutrophils/100 WBC (Bld)75.4 %High43.0 - 75.0 %NOMS HealthcarePlatelet mean volume (Bld) [Entitic vol]11.1 fL9.5 - 13.5 fLNOMS HealthcareTBH EO #0.2NOMS HealthcareTBH KYV390YOIK HealthcareTBH RBC4.37NOMS HealthcareTBH WBC7.3NOMS HealthcareCLINISYNCNOMS HealthcareUS OB TRANSVAGINALon 81-19-1791LK OB TRANSVAGINALEXAM: US OB TRANSVAGINAL HISTORY: Dating. [...] II, MD, PHD at 11-Mar-2025 10:13:58 AM [place] TeleradiologyNormalNot AvailableComment on above:Order Comment: US OB TRANSVAGINAL No LMP recorded.ALL DEHYDROEPIANDROSTERONEon 15-88-5798ECLU, MHKLM174 ng/dL40 - 491 ng/dLNOAZ HealthcareComment on above:Age 1 - 5 years [...] developed and its performance characteristics determined by [facility]. It has not been cleared or approved by the Food and Drug Administration. Performed at: [address] [id number] College Physics Instructor: Eliud Rodriguez MD, Phone: [phone] [facility] ANTI-MULLERIAN HORMONEon 94-16-3646JUIP-MULLERIAN HORMONE (AMH)2.79 ng/mL.[facility] HealthcareComment on above:For assays employing antibodies, the possibility exists for interference by heterophile antibodies in the samples.1 1.Gracie Hernandez Interferences in Immunoassays - still a threat. Clin. Chem. 2000; 46: 0157-6339. This test was developed and its performance characteristics determined by [facility]. It has not been cleared or approved [...] exclude an AMH-secreting ovarian tumor. Performed at: [employer] [address] [place] [id number] College Physics Instructor: Burke Mackey MD, Phone: [phone] [facility] DHEA SULFATEon 12-95-7385STBM-XLXXCMB713.0 ug/dL 110.0 - 433.2 ug/dLNOAZ HealthcareALL FOLLICLE STIMULATING HORMONEon 06-16-2024 FSH4.6. mIU/mLNOMS HealthcareComment on above:Adult Female Range Follicular phase 3.5 - 12.5 Ovulation phase 4.7 - 21.5 Luteal phase 1.7 - 7.7 Postmenopausal 25.8 - 134.8 Performed at: [facility] Lab[address] [id number] College Physics Instructor: Nate Don PhD, Phone: [phone] ALL LUTEINIZING HORMONEon 50-84-5695WSNBSQGGOMW HORMONE(LH)7.6. mIU/mLNOMS HealthcareComment on above:Adult Female Range Follicular phase 2.4 - 12.6 Ovulation phase 14.0 - 95.6 Luteal phase 1.0 - 11.4 Postmenopausal 7.7 - 58.5 No Panel Informationon 05-73-1359TMNPQXLBAWGEH HealthcareALL CBC WITH AUTO DIFF on 03-95-5718CWFUDYAWH ABSOLUTE AUTO0.0NOBarnes-Jewish West County HospitalBasophils/100 WBC (Bld)0.7 %0.2 - 2.0 %NOMS CentervilleEosinophils/100 WBC (Bld)2.3 %0.9 - 7.0 %[facility] Medical CenterErythrocyte distribution width (RBC) [Ratio]15.6 %High11.0 - 15.0 % NOMSaint Luke'S North Hospital–Barry RoadHematocrit (Bld) [Volume fraction]34.8 %Low36.0 - 48.0 %NOMSaint Luke'S North Hospital–Barry RoadHemoglobin (Bld) [Mass/Vol]10.9 g/dLLow12.0 - 16.0 g/dLNOBarnes-[facility] IMMATURE GRANULOCYTES ABS AUTO0.01NOBarnes-Jewish West County HospitalImmature granulocytes/100 WBC (Bld)0.2 %0.0 - 0.5 %NOMSaint Luke'S [facility] Hospital–Barry RoadInterpretation and review of laboratory resultsAbnormalNOBarnes-Jewish West County HospitalLYMPHOCYTES ABSOLUTE AUTO1.4NOMS [place] Lymphocytes/100 WBC (Bld)23.6 %20.5 - 60.0 %NOMPhelps HealthH (RBC) [Entitic mass]23.2 pgLow26.7 - 34.0 pgNOSaint Francis Medical CenterHC (RBC) [Mass/Vol]31.3 g/dL29.9 - 35.2 g/dLNOAZ HealthcareMCV (RBC) [Entitic vol]74.0 fLLow81.0 - 99.0 fLNOMS HealthcareMONOCYTES ABSOLUTE AUTO0.5NOMS HealthcareMonocytes/100 WBC (Bld)7.8 % 1.7 - 12.0 %NOMS HealthcareNEUTROPHILS ABSOLUTE AUTO4.0NOMS Healthcare Neutrophils/100 WBC (Bld)65.4 %43.0 - 75.0 %NOMS HealthcarePlatelet mean volume (Bld) [Entitic vol]10.3 fL9.5 - 13.5 fLNOMS HealthcareTBH EO #0.1NOMS Healthcare TBH DMA762LBDR HealthcareTBH RBC4.70NOMS HealthcareTB WBC6.1NOMS Healthcare CLINISYNCNOAZ HealthcareUS PELVIS W/ TRANSVAGINALon 46-37-0597[place] [address] Ultrasound Report Signed Patient: DANETTE AYALA MR#: [id number] : 2005 Acct:[id number] Age/Sex: 18 / F ADM Date: 06/15/24 Loc: [facility] Attending Dr: Shania Antunez D.O. Ordering Physician: Shania Antunez D.O. Date of Service: 06/15/24 Procedure(s): US pelvis w/ transvaginal Accession Number(s): [id number] cc: ELIANA MARQUIS ; Shania Antunez D.O. [facility] [place] [id number] Patient Name: DANETTE AYALA MRN: [facility]:[id number] date: 2005 Sex: F Assigned Patient Location: [facility] Current Patient Location: LAB Accession/Order Number: [id number] Exam Date: 06/15/2024 13:11 Report Date: 06/15/2024 [...] M.A. Signed By: 06/15/242203 DD/ 01 TD/TT: Multimedia Manager:ARLETHRadiology, Radiologist, - 06/15/2024 [place] [address] Ultrasound Report Signed Patient: DANETTE AYALA MR#: [id number] : 2005 Acct:[id number] Age/Sex: 18 / F ADM Date: 06/15/24 Loc: [facility] Attending Dr: Shania Antunez D.O. Ordering Physician: Shania Antunez D.O. Date of Service: 06/15/24 Procedure(s): US pelvis w/ transvaginal Accession Number(s): [id number] cc: ELIANA MARQUIS ; Shania Antunez D.O. [facility] [place] [id number] Patient Name: DANETTE AYALA MRN: [id number] date: 2005 Sex: F Assigned Patient Location: [facility] Current Patient Location: LAB Accession/Order Number: [id number] Exam Date: 06/15/2024 13:11 Report Date: 06/15/2024 [...] M.A. Signed By: 06/15/242203 DD/ 01 TD/TT: Multimedia Manager: [facility] Denty'sRadiology Study observation (narrative)[facility] Denty's PELVIS W/ TRANSVAGINALOrdered By: Radiologist Radiology on 60-07-2847GDDR Denty's Work Phone: US PELVIS AND TRANSVAGon 13-24-7671NO PELVIS AND TRANSVAGEXAMINATION: US PELVIS AND TRANSVAG [...] Electronically authenticated by: KIAN MONREAL Date: 2022-01-02 14:40[facility] PELVIS AND TRANSVAGon 34-76-3406HH PELVIS AND TRANSVAG EXAMINATION: US PELVIS AND [...] authenticated by: MELVIN ALONSO Date: 2021-10-12 15:53NormalThe [facility] AUTO DIFFon 19-73-6746YJNC #0.0 103/ulNormal0.0-0.1The Protestant HospitalComment on above:Performed By: #### CBC #### [facility] [address], [place] [address] Cain KarenBasophils/100 WBC (Bld)0.3 %Normal0.2-2.0[facility] Comment on above:Performed By: #### CBC #### [facility] [address], [place] [address] Cain KarenEO #0.0 103/ulNormal0.0-0.7The Protestant HospitalComment on above: Performed By: #### CBC #### [facility] [address], [place] [address] Cain KarenEosinophils/100 WBC (Bld)0.3 %Critically low0.9-7.0The Protestant HospitalComment on above:Performed By: #### CBC #### [facility] [address], [place] [address] Cain KarenErythrocyte distribution width (RBC) [Ratio]14.3 %Ctgeos24.0-15.0The Protestant HospitalComment on above:Performed By: #### CBC #### [facility] [address] [place] [address] Cain KarenHematocrit (Bld) [Volume fraction]34.1 %Critically low36.0-48.0The Protestant HospitalComment on above:Performed By: #### CBC #### [facility] [address] [place] [address] Cain KarenHemoglobin (Bld) [Mass/Vol]11.1 g/dLCritically low12.0-16.0The Protestant HospitalComment on above:Performed By: #### CBC #### [facility] [address] [place] [address] Cain KarenIG #0.02 10e3/ulNormal0.00-0.03The Protestant HospitalComment on above:Performed By: #### CBC #### [facility] [address] [place] [address] Cain KarenIG %0.2 %Normal0.0-0.5The Protestant HospitalComment on above: Performed By: #### CBC #### [facility] [address] [place] [address] Cain KarenLYMPH #0.9 103/ulCritically low1.2-3.8The Protestant HospitalComment on above:Performed By: #### CBC #### [facility] [address] [place] [address] Cain KarenLymphocytes/100 WBC (Bld)9.3 %Critically low20.5-60.0The Protestant HospitalComment on above:Performed By: #### CBC #### [facility] [address] [place] [address] Cain KarenMANUAL DIFF REQNONormalThe Protestant HospitalComment on above: Performed By: #### CBC #### [facility] [address] [place] [address] Cain KarenMCH (RBC) [Entitic mass]25.6 pgCritically low26.7-34.0The Protestant HospitalComment on above:Performed By: #### CBC #### [facility] [address] [place] [address] Cain ChapmanMCHC (RBC) [Mass/Vol]32.6 g/zHDxorsn03.9-35.2[facility] Comment on above:Performed By: #### CBC #### [facility] [address] [place] [address] Cain KarenMCV (RBC) [Entitic vol]78.8 fLCritically low79.1-95.6The Protestant HospitalComment on above:Performed By: #### CBC #### [facility] [address] [place] [address] Cain OlsonenMONO #0.6 103/ulNormal0.3-0.8The Protestant HospitalComment on above: Performed By: #### CBC #### [facility] [address] [place] [address] Cain KarenMonocytes/100 WBC (Bld)6.3 %Normal1.7-12.0[facility] Comment on above:Performed By: #### CBC #### [facility] [address] [place] [address] Cain KarenNEUT #8.0 103/ulCritically high1.4-6.5The Protestant HospitalComment on above:Performed By: #### CBC #### [facility] [address] [place] [address] Cain KarenNeutrophils/100 WBC (Bld)83.6 %Critically high43.0-75.0The Protestant HospitalComment on above:Performed By: #### CBC #### [facility] [address] [place] [address] Cain KarenPlatelet mean volume (Bld) [Entitic vol]11.0 fLNormal9.5-13.5The Protestant HospitalComment on above:Performed By: #### CBC #### [facility] [address] [place] [address] Cain UrvurRJS253 103/qiApahwx694-991L[facility] Martin Memorial Hospitalment on above: Performed By: #### CBC #### [facility] [address], [place] [address] Cain ChapmanRBC4.33 106/ulNormal3.40-5.30The [facility] [place] on above: Performed By: #### CBC #### [facility] [address], [place] [address] Cain OlsonenWBC9.6 103/ulNormal4.0-11.0The [facility] [place] on above: Performed By: #### CBC #### [facility] [address], [place] [address] Cain KarenCT ABD/PELV W CONon 52-59-8323OS ABD/PELV W CONCLINICAL HISTORY: ABDOMINAL DISTENSION (GASEOUS). [...] Electronically authenticated by: HARSHA AGUILAR Date: 2021-05-05 14:12[facility] URINE PROFILEon 38-24-8116Wsaiffxal Ql (U)NegativeNormal NEGATIVEMercy Health St. Anne HospitalComment on above:Performed By: #### ERUR, PREGU #### [facility] [address] [place] [address] Cain KarenClarity (U)CLEARNormalCLEARMercy Health St. Anne HospitalComment on above: Performed By: #### ERUR, PREGU #### [facility] [address] [place] [address] Cain KarenColor (U)LT. YELLOWNormalYELLOWMercy Health St. Anne HospitalComment on above:Performed By: #### ERUR, PREGU #### [facility] [address] [place] [address] Cain KarenERUAHDA micrscopic examination will be performed if indicated.Normal [facility] Anne HospitalComment on above:Performed By: #### ERUR, PREGU #### [facility] [address] [place] [address] Cain KarenGlucose Ql (U)NegativeNormalNEGATIVEMercy Health St. Anne HospitalComment on above:Performed By: #### ERUR, PREGU #### [facility] [address] [place] [address] Cain KarenHemoglobin Ql (U)NegativeNormalNEGATIVEMercy Health St. Anne HospitalComment on above:Performed By: #### ERUR, PREGU #### [facility] [address] [place] [address] Cain KarenKetones Ql (U)NegativeNormalNEGATIVEMercy Health St. Anne HospitalComment on above:Performed By: #### ERUR, PREGU #### [facility] [address] [place] [address] Cain KarenLEUKOCYTESNegativeNormalNEGATIVEMercy Health St. Anne HospitalComment on above:Performed By: #### ERUR, PREGU #### [facility] [address] [place] [address] Cain OlsonenNitrite Ql (U)NegativeNormalNEGATIVEThe Protestant HospitalComment on above:Performed By: #### BE, PREGU #### [facility] [address] [place] [address] Cain OlsonenpH (U)6.5 [pH]Normal5-9The Protestant HospitalComment on above: Performed By: #### BE, PREGU #### [facility] [address] [place] [address] Cain OlsonenSPEC GRAVITY1.966Jmojko2.005-<=1.025The Protestant HospitalComment on above:Performed By: #### BE, PREGU #### [facility] [address] [place] [address] Cain ChapmanUA PROTEINNegativeNormalNEGATIVE/ TRACEThe [facility]erdale HospitalComment on above:Performed By: #### BE, PREGU #### [facility] [address] [place] [address] Cain OlsonenUR MICRO INDNOT INDICATEDNormalThe Protestant HospitalComment on above:Performed By: #### BE, PREGU #### [facility] [address] [place] [address] Cain ChapmanUrobilinogen Qn (U)0.2 {Dagoberto'U}/dLNormal0.2 - 1.0The Protestant HospitalComment on above:Performed By: #### KIERANR, PREGU #### [facility] [address] [place] [address] Cain KarenLIPASEon 58-92-5381Oweaoe [Catalytic activity/Vol]53.0 U/LNormal 23.0-300.0The Protestant HospitalComment on above:Performed By: #### CMP, LIPA #### [facility] [address] [place] [address] Cain KarenPREGNANCY URon 73-74-4290KLMJXHWWV, QUALNegativeNormalNEGATIVEThe [place] HospitalComment on above:Performed By: #### KIERANR, PREGU #### [facility] [address] [place] [address] Cain KarenPROF 14(COMP METB)on 56-68-8325Ioamxfr [Mass/Vol]3.7 g/dLNormal 3.5-5.0[facility] St. Anne HospitalComment on above:Performed By: #### CMP, LIPA #### [facility] [address] [place] [address] Cain KarenAlbumin/Globulin [Mass ratio]1.2 {ratio}NormalMercy Health St. Anne Hospital Comment on above:Performed By: #### CMP, LIPA #### [facility] [address] [place] [address] Cain KarenALP [Catalytic activity/Vol]86 U/XHuufdi16-257ClvMercy Health St. Anne Hospital Comment on above:Performed By: #### CMP, LIPA #### [facility] [address] [place] [address] Cain KarenALT [Catalytic activity/Vol]22 U/LNormal9-52[facility] Comment on above:Performed By: #### CMP, LIPA #### [facility] [address] [place] [address] Cain KarenAnion gap [Moles/Vol]11.6 mmol/LNormalMercy Health St. Anne HospitalComment on above:Performed By: #### CMP, LIPA #### [facility] [address] [place] [address] Cain KarenAST [Catalytic activity/Vol]15 U/BRexpms50-93IkiMercy Health St. Anne Hospital Comment on above:Performed By: #### CMP, LIPA #### [facility] [address] [place] [address] Cain KarenBilirubin [Mass/Vol]0.5 mg/dLNormal0.2-1.3TMercy Health [facility] Comment on above:Performed By: #### CMP, LIPA #### [facility] [address] [place] [address] Cain KarenCalcium [Mass/Vol]9.2 mg/dLNormal8.4-10.2[facility] Comment on above:Performed By: #### CMP, LIPA #### [facility] [address] [place] [address] Cain KarenChloride [Moles/Vol]105 mmol/CJjjiee73-057X[facility] Comment on above:Performed By: #### CMP, LIPA #### [facility] [address] [place] [address] Cain KarenCO2 [Moles/Vol]25.4 mmol/AKjkruv91.0-30.0[facility] Comment on above:Performed By: #### CMP, LIPA #### [facility] [address] [place] [address] Cain KarenCreatinine [Mass/Vol]0.72 mg/dLNormal0.52-1.04[facility] Comment on above:Performed By: #### CMP, LIPA #### [facility] [address] [place] [address] Cain KarenGlobulin (S) [Mass/Vol]3.2 g/dLNormalThe Protestant HospitalComment on above:Performed By: #### CMP, LIPA #### [facility] [address] [place] [address] Cain KarenGlucose [Mass/Vol]88 mg/jISgqewo90-005ZfrMercy Health St. Anne HospitalComment on above:Performed By: #### CMP, LIPA #### [facility] [address] [place] [address] Cain KarenPotassium [Moles/Vol]4.0 mmol/LNormal3.4-5.0[facility] Comment on above:Performed By: #### CMP, LIPA #### [facility] [address] [place] [address] Cain KarenProtein [Mass/Vol]6.9 g/dLNormal6.1-8.2[facility] St. Anne HospitalComment on above:Performed By: #### CMP, LIPA #### [facility] [address] [place] [address] Cain KarenSodium [Moles/Vol]138 mmol/OMymgas635-572X[facility] Comment on above:Performed By: #### CMP, LIPA #### [facility] [address], [place] [address] Cain KarenUrea nitrogen [Mass/Vol]8.0 mg/dLNormal6.4-19.3[facility] Comment on above:Performed By: #### CMP, LIPA #### [facility] [address] [place], [place] [address] Cain KarenUrea nitrogen/Creatinine [Mass ratio]11.1 mg/mgNoMarietta Osteopathic ClinicComment on above:Performed By: #### JUNE, LIPA #### [facility] [address] [place], [place] [address] Cain KarenUS PELVIS TRANSVAGon 39-49-0592GE PELVIS TRANSVAGEXAM: US PELVIS TRANSVAG HISTORY: Cyst [...] Electronically authenticated by: JONI GUZMAN Date: 2021-05-05 15:27[facility] Vital Signs Date TimeVital SignValuePerforming AosxlcyzzAeyxcudg15-59-5332 15:28-0400Body mass index (BMI) [Ratio]28.97 kg/m2Amy Gigi PA Work Phone: [phone] CenterNvohsbalqd52-38-3235 15:28-0400Body .57 kgAmy Gigi PA Work Phone: [phone] [place], [place] [address]Bvxtirxlne23-72-9176 15:28-0400Diastolic blood szoqvxcd59 mm[Hg]Munira Gigi PA Work Phone: [phone] [place], [place] [address]Qpoqrrbdmp88-79-0822 15:28-0400Systolic blood gvboyffd278 mm[Hg]Munira Garcia PA Work Phone: [phone] [place], [place] [address]Wllvepzymz90-20-6455 15:16-0400Body mass index (BMI) [Ratio]28.92 kg/m2Amy Gigi PA Work Phone: [phone] [place], [place] [address]Jmjvijfpjg16-75-8012 15:16-0400Body .43 kgMunira Garcia PA Work Phone: [phone] [place], [place] [address]Ccqvwqyues85-17-0469 15:16-0400Diastolic blood nmbvouoj12 mm[Hg]Munira Garcia PA Work Phone: [phone] [place], [place] [address]Wnuutstnrq15-19-8743 15:16-0400Systolic blood qhwulnol748 mm[Hg]Munira Garcia PA Work Phone: [phone] [place], [place] [address]Ayvwhtamix26-97-9117 13:59-0400Body mass index (BMI) [Ratio]28.84 kg/q6CbvmjuzwDarlene Olmstead ACETYLENE TORCH OPERATOR Work Phone: [phone] [place], [place] [address]Bygvgcetol81-40-2153 13:59-0400Body ajynjg32.2 kg Darlene Angelesly ACETYLENE TORCH OPERATOR Work Phone: [phone] [place], [place] [address]Mngndjqiro04-44-5933 13:59-0400Diastolic blood zcfwnfny50 mm[Hg]Darlene Ishan ACETYLENE TORCH OPERATOR Work Phone: [phone] [place], [place] [address]Ajckpwskvg91-64-9486 13:59-0400Systolic blood opbfhsqt574 mm[Hg]Darlene Angelesly ACETYLENE TORCH OPERATOR Work Phone: [phone] [place], [place] [address]Vdyuzjxdbn69-19-5814 15:28-0400Body mass index (BMI) [Ratio]28.69 kg/q2Tthrn Tulio DO Work Phone: [facility] CenterNtfmzhcexo31-55-9903 15:28-0400Body nzbumq88.81 kgCorey Tulio DO Work Phone: [phone] [place], [place] [address]Umfkkkdzax59-32-9094 15:28-0400Diastolic blood vhkrroem68 mm[Hg]Shania Tulio DO Work Phone: [phone] [place], [place] [address]Ebxsdjiwlg01-58-9389 15:28-0400Systolic blood mm[Hg]Shania Tulio DO Work Phone: [phone] [place], [place] [address]Xlthwzsksl44-44-9527 13:52-0400Body mass index (BMI) [Ratio]28.97 kg/t1Qjhbm Tulio DO Work Phone: [phone] [place], [place] [address]Sahiiwazry44-03-5195 13:52-0400Body .57 kgCorey Tulio DO Work Phone: [phone] [place], [place] [address]Bcmwqzbpoz18-77-0435 13:52-0400Diastolic blood mm[Hg]Shania Tulio DO Work Phone: [phone] [place], [place] [address]Fqexmmwahd02-19-6945 13:52-0400Systolic blood wpskisma865 mm[Hg]Shania Tulio DO Work Phone: [phone] [place], [place] [address]Kssxdetjcb02-32-2395 15:54-0400Body mass index (BMI) [Ratio]28.24 kg/m2Amy Gigi LALA Work Phone: [phone] [place], [place] [address]Eupxsodyrp84-52-1162 15:54-0400Body .62 kgAmy Gigi LALA Work Phone: [phone] [place], [place] [address]Wacmuzviog95-06-8369 15:54-0400Diastolic blood ldevwdma61 mm[Hg]Munira LALA Work Phone: [phone] [place], [place] [address]Uqhrnssyhp18-84-6952 15:54-0400Systolic blood wxmgmxny332 mm[Hg]Munira LALA Work Phone: [phone]-[facility] HealthSt[facility] Medical CenterPnkvwnxyqg12-36-5530 13:34-0400Body mass index (BMI) [Ratio]29.35 kg/f5Fwhoa Tulio DO Work Phone: [facility] CenterKnjimetwru36-97-7261 13:34-0400Body cystyy69.56 kgCorey Tulio DO Work Phone: [facility] CenterNjnliordlm11-91-2883 13:34-0400Diastolic blood oaoecbwd37 mm[Hg]Shania Tulio DO Work Phone: [facility] CenterOukzibmbdd51-22-9976 13:34-0400Systolic blood shmgaqiy004 mm[Hg]Shania Tulio DO Work Phone: [facility] CenterNecoehdqax90-38-0674 11:07-0400Body .6 cmSfacundo Hernandes ACETYLENE TORCH OPERATOR Work Phone: [facility] CenterJtxwyxwtxo32-07-0420 11:07-0400Body mass index (BMI) [Ratio]29.18 kg/l2MlhpmfJose Antonio Hernandes ACETYLENE TORCH OPERATOR Work Phone: [facility] CenterDvodzaisft11-83-3668 11:07-0400Body .11 kgShgaye Hernandes ACETYLENE TORCH OPERATOR Work Phone: [facility] CenterOfyjebnauc90-48-2704 11:07-0400Diastolic blood mm[Hg]Jose Antonio Hernandes ACETYLENE TORCH OPERATOR Work Phone: [facility] CenterJssmqnmtul19-83-2079 11:07-0400Heart rate79 /min Jose Antonio Hernandes ACETYLENE TORCH OPERATOR Work Phone: [facility] CenterGjkuepqdzf22-84-8720 11:07-0400Respiratory rate16 /minSfacundo Hernandes ACETYLENE TORCH OPERATOR Work Phone: [facility] CenterBjihttyozn89-02-4034 11:07-0253FiD1% (BldA) [Mass fraction]98 %Jose Antonio Hernandes ACETYLENE TORCH OPERATOR Work Phone: [facility] CenterVskventdkf33-83-8252 11:07-0400Systolic blood psokcyvu558 mm[Hg]Jose Antonio Hernandes ACETYLENE TORCH OPERATOR Work Phone: [facility] CenterYuijhuovfu11-62-0394 13:36-0500Body mass index (BMI) [Ratio]32.58 kg/s9Nhsag Tulio DO Work Phone: [facility] CenterZzjsaqgcgl59-49-3039 13:36-0500Body .09 kgCorey Tulio DO Work Phone: NOBarn[facility] HospitalAlexrkbrlb72-83-6487 13:36-0500Diastolic blood ycwvztbe24 mm[Hg]Shania Tulio DO Work Phone: NOBarn[facility] HospitalTjulilzqke65-47-4897 13:36-0500Systolic blood xqowymgk277 mm[Hg]Shania Tulio DO Work Phone: [facility] Encounters Encounter DateEncounter TypeCare ProviderFacilityStart: 09-07-2025 End: 08-85-2506Dubcotgad Result EncounterKristina Ishan ACETYLENE TORCH OPERATOR Work Phone: [facility] External Department UnsolicitedStart: 09-07-2025 End: 47-79-8529Vxilvpesd Result EncounterKristina Ishan ACETYLENE TORCH OPERATOR Work Phone: [facility] External Department UnsolicitedStart: 08-27-2025 End: 18-86-9146Kxziwqlov Result EncounterKristina Ishan ACETYLENE TORCH OPERATOR Work Phone: [facility] External Department UnsolicitedStart: 08-27-2025 End: 89-08-6646Kyzuxjjav Result EncounterKristina Ishan ACETYLENE TORCH OPERATOR Work Phone: [facility] External Department UnsolicitedStart: 08-26-2025 End: 29-67-4742Byqmmkwuz Result EncounterKristina Ishan ACETYLENE TORCH OPERATOR Work Phone: [facility] External Department UnsolicitedStart: 08-26-2025 End: 25-87-7720Gqgcgeery Result EncounterKristina Ishan ACETYLENE TORCH OPERATOR Work Phone: [facility] External Department UnsolicitedStart: 08-25-2025 End: 04-18-6735aehbxaieqjJPD RAMEYNot AvailableStart: 08-25-2025 End: 84-49-3435Govkav outpatient visit 15 minutesMunira LALA Work Phone: [facility] [place] OBGYNComment on above:Urinary tract infection without hematuria, site unspecified (Primary Dx); Third trimester ([facility]); 32 weeks gestation of ([facility])Start: 08-25-2025 End: 74-36-7501Qufuul Lela LALA Work Phone: [facility] OBGYNStart: 08-25-2025 End: 03-36-0489Xbrrba Lela LALA Work Phone: [facility] OBGYNStart: 08-22-2025 End: 13-61-1034Pocijseli Result EncounterCorey Tulio DO Work Phone: [facility] External Department UnsolicitedStart: 08-22-2025 End: 20-47-7143Xuwfhyqez Result EncounterCorey Tulio DO Work Phone: NOPX External Department UnsolicitedStart: 08-19-2025 End: 85-06-3810Uaqjjfddp Result EncounterCorey Tulio DO Work Phone: NOVS External Department UnsolicitedStart: 08-19-2025 End: 80-44-4140Kcamzcjcs Result EncounterCorey Tulio DO Work Phone: NOFI External Department UnsolicitedStart: 08-11-2025 End: 62-41-2788Qupvjs outpatient visit 15 minutesMunira LALA Work Phone: [facility] OBGYNComment on above:Third trimester ([facility]); 30 weeks gestation of ([facility])Start: 08-11-2025 End: 55-39-0997ppajtdclswOAY RAMEYNot AvailableStart: 07-27-2025 End: 08-42-5055Keqfvr Quinn Olmstead NP Work Phone: [facility] OBGYNStart: 07-27-2025 End: 12-33-2803Zcolvy Quinn Olmstead NP Work Phone: [facility] OBGYNStart: 07-27-2025 End: 15-65-6538egnospkrelBGDMHEHI EBERLYNot AvailableStart: 07-27-2025 End: 55-35-6229Lworlo outpatient visit 15 minutesDarlene Olmstead ACETYLENE TORCH OPERATOR Work Phone: [facility] OBGYNComment on above:Anemia, unspecified type (Primary Dx); 28 weeks gestation of ([facility]); Third trimester ([facility]); Elevated glucose tolerance testStart: 07-25-2025 End: 75-44-1281Pyxpqufwg Result EncounterGeneric External Data ProviderNOMS External Department UnsolicitedStart: 07-25-2025 End: 75-33-9895Gtfihmxlc Result EncounterGeneric External Data ProviderNOMS External Department UnsolicitedStart: 07-13-2025 End: 01-62-0970Vsybxf outpatient visit 15 minutesCorey Tulio DO Work Phone: [facility] [place] OBGYNComment on above:Cystitis (Primary Dx); 26 weeks gestation of ([facility]); Second trimester ([facility]); Gastroesophageal reflux in ([facility])Start: 07-13-2025 End: 12-56-4187ftnchfuxuhLZXEE FAZIONot AvailableStart: 07-13-2025 End: 79-91-5402Ilbvrj flowsheetCorey Tulio DO Work Phone: [facility] [facility]BGYNStart: 07-13-2025 End: 62-86-5581Ydzchd flowsheetCorey Tulio DO Work Phone: [facility] [place] OBGYNStart: 06-15-2025 End: 18-90-1433Bhbqzk flowsheetCorey Tulio DO Work Phone: [facility] [place] OBGYNStart: 06-15-2025 End: 14-53-5383Fxmmht flowsheetCorey Tulio DO Work Phone: [facility] OBGYNStart: 06-15-2025 End: 20-52-8807Mgnyue outpatient visit 15 minutesCorey Tulio DO Work Phone: [facility] [place] OBGYNComment on above:22 weeks gestation of ([facility]); Second trimester ([facility]); Diabetes mellitus screeningStart: 06-15-2025 End: 07-41-6351jkerbzrchdIAYSP FAZIONot AvailableStart: 05-31-2025 End: 49-37-2536cwdztekpkbYUR RAMEYNot AvailableStart: 05-18-2025 End: 11-67-1458Baunrd outpatient visit 15 minutesMunira LALA Work Phone: [facility] RONI OBComment on above:Screening, , for anatomic survey ([facility]); STD exposure; Vaginal discharge; Second trimester ([facility]); 18 weeks gestation of ([facility])Start: 05-18-2025 End: 14-40-7703ksicbiexjmLSO RAMEYNot AvailableStart: 05-18-2025 End: 59-86-0951Eswnmh flowsJames LALA Work Phone: [facility] BCP OBStart: 05-18-2025 End: 93-97-7035Bmbodq flowsheetMunira LALA Work Phone: [facility] BCP OBStart: 05-18-2025 End: 25-62-8729Xzdmasnt Result EncounterMunira LALA Work Phone: [facility] External Department UnsolicitedStart: 04-06-2025 End: 60-54-8477Qnmkxn flowsheetCorey Tulio DO Work Phone: [facility] BCP OBStart: 04-06-2025 End: 71-92-7549Orbsjr flowsheetCorey Tulio DO Work Phone: [facility] BCP OBStart: 04-06-2025 End: 50-67-1920Chhncs outpatient visit 15 minutesCorey Tulio DO Work Phone: [facility] BCP OBComment on above:First trimester ; 12 weeks gestation of ; Urinary tract infection without hematuria, site unspecified; Other iron deficiency anemiaStart: 04-06-2025 End: 58-48-0153hbfuvthbxqSCBLX FAZIONot AvailableStart: 04-05-2025 End: 45-51-3516Dnlbsl Heide Hernandes ACETYLENE TORCH OPERATOR Work Phone: [facility] CI FMStart: 04-05-2025 End: 36-97-9475Ttsdvj flowsИрина Hernandes ACETYLENE TORCH OPERATOR Work Phone: [facility] CI FMStart: 04-05-2025 End: 28-66-4904Uwbeza outpatient visit 25 minutesShgaye Hernandes ACETYLENE TORCH OPERATOR Work Phone: [facility] CI FMComment on above:Jaw pain (Primary Dx); Major depressive disorder, single episode, 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) (CMS/HCC); Otalgia of both earsStart: 04-05-2025 End: 41-87-2116qsqdnxuriiBOUMXZ M SHIVELYNot AvailableStart: 04-01-2025 End: 70-06-5935Jxmmdeuix Result EncounterGeneric External Data ProviderNOMS External Department UnsolicitedStart: 04-01-2025 End: 10-55-3378Cwndjghjh Result EncounterGeneric External Data ProviderNOMS External Department UnsolicitedStart: 03-10-2025 End: 84-77-4750bnhgxohidnNRFUIX SHIVELYNot AvailableStart: 03-10-2025 End: 68-53-7717Suetnw outpatient visit 5 minutesNoms Bcp Ob Tulio NurseNOMS BCP OBComment on above:GA: 6y9wSgdid: 03-10-2025 End: 37-90-9701nchtyyvqznJWJYZD SHIVELYNot AvailableStart: 09-07-2024 End: 45-59-7173Jwkalw flowsheetCorey Tulio DO Work Phone: [facility] BCP OBStart: 09-07-2024 End: 63-57-6795Klodgv flowsheetCorey Tulio DO Work Phone: [facility] BCP OBStart: 09-07-2024 End: 98-93-6489Mnvhvb outpatient visit 15 minutesCorey Tulio DO Work Phone: [facility] BCP OBComment on above:PCOS (polycystic ovarian syndrome); Hormone imbalance; Pelvic pain in female; Pain in female genitalia on intercourseStart: 09-07-2024 End: 49-76-7851epgowoeillXUUTW FAZIONot AvailableStart: 06-15-2024 End: 64-92-4217Rnekegyka Result EncounterGeneric External Data ProviderNOMS External Department UnsolicitedStart: 06-15-2024 End: 50-10-6311Qirzcgfry Result EncounterGeneric External Data ProviderNOMS External Department UnsolicitedStart: 01-02-2022 End: 76-71-2395umtcdnjazoQG HEAVENLY CHAPARROFacility:W1Nygxj: 10-12-2021 End: 93-13-4793zcghpxnzkfDD HEAVENLY CHAPARROFacility:J1Svytj: 05-05-2021 End: 85-07-9908nhfaszwccaSH ELIANA ALDAFacility:H1 Procedures DateProcedureProcedure DetailPerforming ClinicianStart: 96-77-2275LFF FERRITIN Darlene Olmstead ACETYLENE TORCH OPERATOR Work Phone: Start: 78-99-2880BOW HEMOGLOBIN Y0SBkkesnkuDarlene Olmstead ACETYLENE TORCH OPERATOR Work Phone: Start: 97-47-9952OTS CBC WITH AUTO DIFFAngelinaa Ishan ACETYLENE TORCH OPERATOR Work Phone: Start: 75-19-2649Gdkqj dip stick/tablet rgnt non-auto w/o micrscpKrricha Ishan ACETYLENE TORCH OPERATOR Work Phone: Start: 76-97-4199BGZKUVE TOLERANCE 3 HOURCorey Tulio DO Work Phone: Start: 56-75-4118DCI UA (CLEAN/CATCH) GIRL FRIDAY/MICRO IF IND.Shania Tulio DO Work Phone: Start: 54-00-3190Tjjbr dip stick/tablet rgnt non-auto w/o micrscpAmy Gigi LALA Work Phone: Start: 25-40-8272Ijifk dip stick/tablet rgnt non-auto w/o micrscpKristina Ishan ACETYLENE TORCH OPERATOR Work Phone: start: 44-34-0777MLY CBC WITH AUTO DIFFCorey Tulio DO Work Phone: Start: 61-61-3827Hagwv dip stick/tablet rgnt non-auto w/o micrscpCorey Tulio DO Work Phone: Start: 01-04-5225Arufk dip stick/tablet rgnt non-auto w/o micrscpCorey Tulio DO Work Phone: Start: 41-65-4275MRGBBYJDV VAGINITIS (HTRX)Munira LALA Work Phone: Start: 00-29-3329Vrqlq dip stick/tablet rgnt non-auto w/o micrscpAmy Gigi LALA Work Phone: Start: 94-09-3575Yosnq dip stick/tablet rgnt non-auto w/o micrscpCorey Tulio DO Work Phone: Start: 43-39-7487OPS CBC WITH AUTO DIFFCorey Tulio DO Work Phone: Start: 45-84-5785YJ PELVIS W/ TRANSVAGINALGeneric External Data ProviderStart: 88-52-2550SQF ANTI-MULLERIAN HORMONECorey Tulio DO Work Phone: Start: 30-92-4144RGY CBC WITH AUTO DIFFCorey Tulio DO Work Phone: Start: 63-31-2198WVF DEHYDROEPIANDROSTERONECorey Tulio DO Work Phone: Start: 51-79-4737UVA DHEA SULFATEGeneric External Data ProviderStart: 33-46-7777AQX FOLLICLE STIMULATING HORMONEGeneric External Data ProviderStart: 19-37-4718REN LUTEINIZING HORMONEGeneric External Data Provider Plan of Treatment DateCare ActivityDetailAuthorStart: 09-13-2025 End: 44-34-7597Girdaeu encounter zsycpqqyh24/18/2025 9:20 AM EST Routine [facility] [address] [place], [id number] Shania Antunez DO [address] [place] [address] NOMKelley [place] OBGYNStart: 08-25-2025 End: 84-03-9371Weojgwd encounter fjqimcjmd59/30/2025 3:20 PM EDT Routine NOMKelley BACAGYAnat [address] [place], [id number] Munira Garcia PA [address] [place], [place] [id number] NOMKelley [place] OBGYNStart: 07-27-2025 End: 11-94-4623Yjbacorecsx of glucose 3 hours after glucose challenge for glucose tolerance testGlucose tolerance, 3 hours Lab Routine Elevated glucose tolerance test Expected: 07/27/2025 (Approximate), Expires: 07/27/2026[facility] Work Phone: comment on above:Expected: 07/27/2025 (Approximate), Expires: 07/27/2026Start: 07-27-2025 End: 47-24-8357Yivuceh encounter zutxcydon44/01/2025 1:50 PM EDT Routine [facility] BACAGYN [address] [place], [id number] Darlene Olmstead, ACETYLENE TORCH OPERATOR [address] [place] [id number] NOMKel[facility] [place] OBGYNStart: 07-13-2025 End: 56-19-9202Oogsorj encounter procedureNOMS Deion OBGYNComment on above: ArrivedStart: 07-13-2025 End: 49-59-2856UK for pregnancyUS OB follow up transabdominal approach Imaging Routine Second trimester ([facility]) Expected: 07/13/2025, Expires: 11/12/2025[facility] Work Phone: comment on above:Expected: 07/13/2025, Expires: 11/12/2025Start: 53-54-0924STBRF-19 Vaccine ( season)COVID-19 Vaccine ( season)N[facility]S HealthcareStart: 23-42-4644Ppajkuisz vaccinationNOMS HealthcareStart: 06-15-2025 End: 74-76-8917DZR panel - Blood by Automated countCBC Lab Routine Diabetes mellitus screening Expected: 06/15/2025 (Approximate), Expires: 06/15/2026[facility] Work Phone: comment on above:Expected: 06/15/2025 (Approximate), Expires: 06/15/2026Start: 06-15-2025 End: 23-76-1921Dojkogwumxa of glucose 1 hour after glucose challenge for glucose tolerance testGlucose tolerance, 1 hour Lab Routine Diabetes mellitus screening Expected: 06/15/2025 (Approximate), Expires: 06/15/2026NOMS HealthcareComment on above:Expected: 06/15/2025 (Approximate), Expires: 06/15/2026Start: 06-15-2025 End: 49-81-4626Ovamezi encounter procedureNOMS BCP OBComment on above:Arrived Start: 05-31-2025 End: 40-63-2542Mapilwiiamun / ancillary services ihyhcekwne68/05/2025 8:30 AM EDT Ancillary Procedure [facility] [address] [place] [address] NOMS BCP OBStart: 05-18-2025 End: 31-10-6458Tlfzdaz encounter bsapxxvbb56/23/2025 3:30 PM EDT Routine [facility] OB [address] [place] [address] Munira Garcia PA [address] [place] [address] ArrivedNOMS BCP OBComment on above: ArrivedStart: 05-18-2025 End: 34-42-9077Gygxd fetoprotein, maternalAlpha fetoprotein, maternal Lab Routine 18 weeks gestation of ([facility]) Expected: 05/18/2025 (Approximate), Expires: 06/18/2025NOMS HealthcareComment on above:Expected: 05/18/2025 (Approximate), Expires: 06/18/2025Start: 05-18-2025 End: 78-85-3188RI for pregnancyUS OB 14+ weeks anatomy scan Imaging Routine Screening, , for anatomic survey ([facility]) Expected: 05/18/2025, Expires: 08/18/2025NOMS HealthcareComment on above:Expected: 05/18/2025, Expires: 08/18/2025Start: 05-04-2025 End: 07-85-2309Zccakok encounter wzujctehc49/09/2025 2:30 PM EDT Routine [facility] OB [address] [place] [address] Munira Garcia PA [address] [place], [place] [id number] NOM[facility] BCP OBStart: 04-06-2025 End: 61-77-6909Wjlkdbo encounter procedureNOMS BCP OBComment on above:Arrived Start: 04-05-2025 End: 59-28-1166Mnfxott encounter procedureNOMS BCP OBComment on above:Arrived Start: 03-10-2025 End: 51-42-5909ASI/RhABO/Rh Lab Routine Missed menses , unspecified gestational age Expected: 03/10/2025 (Approximate), Expires: 03/10/2026NOMS HealthcareComment on above:Expected: 03/10/2025 (Approximate), Expires: 03/10/2026Start: 03-10-2025 End: 65-76-4038Jmaal type and Indirect antibody screen panel - BloodType and screen Lab Routine Missed menses , unspecified gestational age Expected: 03/10/2025 (Approximate), Expires: 03/10/2026NOMS HealthcareComment on above:Expected: 03/10/2025 (Approximate), Expires: 03/10/2026Start: 03-10-2025 End: 98-43-9071Wzhdz of abuse panel - Urine by Screen methodRapid drug screen, urine Lab Routine , unspecified gestational age Encounter for supervision of normal first in first trimester Expected: 03/10/2025 (Approximate), Expires: 03/10/2026[facility] HealthcareComment on above:Expected: 03/10/2025 (Approximate), Expires: 03/10/2026Start: 03-09-2025 End: 88-66-8656TU Pelvis transvaginalUS OB transvaginal Imaging Routine Missed menses Expected: 03/09/2025, Expires: 06/09/2025[facility] Work Phone: comment on above:Expected: 03/09/2025, Expires: 06/09/2025Start: 11-01-2024 End: 48-70-9533Mghnboj encounter /06/2025 1:20 PM EST Consult [address] [place] [address] Shania Antunez, DO [address] [place] [address] [facility] OBStart: 09-07-2024 End: 04-58-2509Dznjgkh encounter zgxhqyqsu57/12/2024 8:40 AM EST Office Visit N[facility] [address] [place] [address] Shania Antunez, DO [address] [place] [address] [facility] OBStart: 78-02-0287Tvbwirfxa vaccination Influenza Vaccine (#1)NOM HealthcareStart: 79-99-3841Wljliiyfg B Vaccines (1 of 3 - 19+ 3-dose series)Hepatitis B Vaccines (1 of 3 - 19+ 3-dose series)NOM HealthcareStart: 69-67-2573Kyhalxkrjfkj Vaccine: Pediatrics (0 to 5 Years) and At-Risk Patients (6 to 64 Years) (1 of 2 - PCV)Pneumococcal Vaccine: Pediatrics (0 to 5 Years) and At-Risk Patients (6 to 64 Years) (1 of 2 - PCV)NOM HealthcareStart: 34-58-3041Iidbldyuhkbcs B Vaccine (1 of 2 - Standard) Meningococcal B Vaccine (1 of 2 - Standard)NOM HealthcareStart: 72-61-4676GHJ Vaccines (1 - 3-dose series)HPV Vaccines (1 - 3-dose series)[facility] Start: 36-42-3838Htagqmn of varicella vaccinationVaricella Vaccines (1 of 2 - 13+ 2-dose series)NOM HealthcareStart: 96-44-1257UUpM/Tdap/Td Vaccines (1 - Tdap)DTaP/Tdap/Td Vaccines (1 - Tdap)NOM HealthcareStart: 90-09-4361BRC Vaccines (1 of 1 - Standard series)MMR Vaccines (1 of 1 - Standard series)[facility]Bacteria identified in Urine by CultureUrine culture Microbiology Routine Missed menses Ordered: 03/10/2025[facility] HealthcareComment on above: Ordered: 03/10/2025acteria identified in Urine by CultureUrine culture Microbiology Routine Cystitis Ordered: 07/13/2025[facility] HealthcareComment on above:Ordered: 07/13/2025BC W Auto Differential panel - BloodCBC and differential Lab Routine Missed menses , unspecified gestational age Ordered: 03/10/2025[facility] HealthcareComment on above:Ordered: 03/10/2025BC W Auto Differential panel - BloodCBC and differential Lab Routine 32 weeks gestation of ([facility]) Ordered: 08/25/2025[facility] Work Phone: comment on above:Ordered: 08/25/2025HLAMYDIA TRACHOMATIS (GENITO/STI)CHLAMYDIA TRACHOMATIS (GENITO/STI) Lab Routine Vaginal discharge Ordered: 05/18/2025[facility] HealthcareComment on above:Ordered: 05/18/2025 Hemoglobin A1c/Hemoglobin.total in BloodHemoglobin A1c Lab Routine Missed menses , unspecified gestational age Ordered: 03/10/2025[facility] Healthcare Comment on above:Ordered: 03/10/2025Hepatitis B virus surface Ag [Presence] in Serum or Plasma by ImmunoassayHepatitis B surface antigen Lab Routine Missed menses , unspecified gestational age Ordered: 03/10/2025[facility] Healthcare Comment on above:Ordered: 03/10/2025Hepatitis C virus Ab [Presence] in Serum or Plasma by ImmunoassayHepatitis C antibody Lab Routine Missed menses , unspecified gestational age Ordered: 03/10/2025[facility] HealthcareComment on above: Ordered: 03/10/2025HIV-1/HIV-2 antigen/antibody combination immunoassayHIV-1 and HIV-2 antibodies Lab Routine Missed menses , unspecified gestational age Ordered: 03/10/2025[facility] HealthcareComment on above:Ordered: 03/10/2025 Neisseria gonorrhoeae DNA [Presence] in Unspecified specimen by STEVO with probe detectionNeisseria gonorrhea DNA probe, direct Lab Routine Vaginal discharge Ordered: 05/18/2025[facility] HealthcareComment on above:Ordered: 05/18/2025 ProgesteroneProgesterone Lab Routine Hormone imbalance Ordered: 09/07/2024[facility] Work Phone: comment on above:Ordered: 09/07/2024eagin Ab [Presence] in Serum by RPRRPR Lab Routine Missed menses , unspecified gestational age Ordered: 03/10/2025[facility] HealthcareComment on above:Ordered: 03/10/2025Rubella antibody, IgGRubella antibody, IgG Lab Routine Missed menses , unspecified gestational age Ordered: 03/10/2025[facility] HealthcareComment on above:Ordered: 03/10/2025SURESWAB(R) ADVANCED VAGINITIS PLUS, TMASURESWAB(R) ADVANCED VAGINITIS PLUS, TMA Pathology and Cytology Routine Vaginal discharge Ordered: 05/18/2025[facility] Work Phone: comment on above:Ordered: 05/18/2025US Pelvis transvaginalUS OB transvaginal Imaging Routine Missed menses 03/10/2025 2:28 PM [facility] Healthcare Payers DatePayer CategoryPayerPolicy ID2023Medicaid [id number] 2023Medicaid (Managed Care) [id number] [id number] 2.16.840.1.986308.3.57[id number] 2.16.840.1.185247.3.57[id number] 2.16.840.1.502490.3.57[id number] 2.16.840.1.479988.3.57[id number] 2.16.840.1.307073.3.57[id number] 2.16.840.1.111732.3.57[id number] 2.16.840.1.875637.3.57[id number] 2.16.840.1.662001.3.57[id number] 2.16.840.1.436105.3.57[id number] 2.16.840.1.717274.3.57[id number] 2.16.840.1.667309.3.57[id number] 2.16.840.1.424964.3.57[id number] 2.16.840.1.881367.3.57[id number] 2.16.840.1.413826.3.57[id number] 2.16.840.1.965167.3.57[id number] 2.16.840.1.452391.3.57[id number] Social History DateTypeDetailFacilityStart: 12-30-2023 End: 52-66-2430Vjnyatb smoking status NHISNever smoked tobaccoNOAZ Healthcare Start: 12-30-2023 End: 02-31-9047Oaihhsw of Social functionNOAZ HealthcareStart: 12-30-2023 End: 35-78-1789Goocdcg use panelNOAZ HealthcareStart: 36-97-0044Nwq assigned at birthNot on fileNOAZ HealthcareStart: 58-36-7989FezuaiyirCVHK HealthcareStart: 20-71-8118Etgstzz use and exposureSmokeless tobacco non-userNO[facility] Start: 04-05-2025 End: 25-59-5497Aiyffcstx beverage intakeLifetime non-drinker (finding)[facility] HealthcareStart: 25-66-3192ZzgPnyuzjGIQO HealthcareNEGATED: Highlighted row Start: NINFHistory of tobacco usePassive smokerNOAZ [facility] Functional Status TcczPrvfqeyvhsRobzbpTflousrp27-58-0007Pnwfevt Health Questionnaire 2 item (PHQ- 2) [Reported]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 Exam conducted with a thread grinder present. Vitals: Estimated body mass index is 28.97 kg/m as calculated from the following: Height as of 25: 5' 4 . Weight as of this encounter: 168 lb 12.8 oz. BP: 118/60 Patient's last menstrual period was 01/07/2025. Assessment/Plan ICD-10-CM 1. Third trimester ([facility]) Z34.93 2. 32 weeks gestation of ([facility]) Z3A.32 POCT urinalysis dipstick manually resulted [...] of: Darlene Olmstead NP documented in this encounterSt. 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 Third trimester ([facility]) Z34.93 POCT urinalysis dipstick manually resulted 2. 30 weeks gestation of ([facility]) Z3A.30 Return OB: Patient presents today [...] surgical history on file. documented in this encounterSt. Joseph Medical CenterQhspixbhlg34-95-1348 History of Present illness Narrative* Darlene Olmstead [...] nursing note reviewed. Exam conducted with a thread grinder present. Vitals: Estimated body mass index is 28.84 kg/m as calculated from the following: Height as of 04/05/25: 5' 4 . Weight as of this encounter: 168 lb. BP: 112/70 Patient's last menstrual period was 01/07/2025. ASSESSMENT & PLAN ICD-10-CM 1. Anemia, unspecified type D64.9 iron polysaccharides (ProFe) 391.3 (180 Fe) MG capsule 2. 28 weeks gestation of ([facility]) Z3A.28 POCT urinalysis dipstick manually resulted 3. Third trimester ([facility]) Z34.93 4. Elevated glucose tolerance test [...] Darlene Olmstead NP on behalf of: Darlene Olmtsead NP documented in this encounterSt. Joseph Medical CenterEyhsixicao20-58-4380 History of Present illness Narrative* Darlene Olmstead [...] nursing note reviewed. Exam conducted with a thread grinder present. Vitals: Estimated body mass index is 28.69 kg/m as calculated from the following: Height as of 04/05/25: 5' 4 . Weight as of this encounter: 167 lb 1.9 oz. BP: 120/68 Patient's last menstrual period was 01/07/2025. ASSESSMENT & PLAN ICD-10-CM 1. Cystitis N30.90 nitrofurantoin, macrocrystal-monohydrate, (Macrobid) 100 MG capsule Urine culture 2. 26 weeks gestation of ([facility]) Z3A.26 POCT urinalysis dipstick manually resulted 3. Second trimester ([facility]) Z34.92 POCT urinalysis dipstick manually resulted US OB follow up transabdominal approach 4. Gastroesophageal reflux in ([facility]) O99.619 omeprazole (PriLOSEC) [address] [...] of: Shania Antunez DO documented in this encounterSt. Joseph Medical CenterRnzhoettzh59-53-2589 History of Present illness Narrative* SPIKE Guzman [...] PLAN ICD-10-CM 1. 22 weeks gestation of ([facility]) Z3A.22 POCT urinalysis dipstick manually resulted 2. Second trimester ([facility]) Z34.92 POCT urinalysis dipstick manually resulted [...] of: Shania Antunez DO documented in this encounterSt. Joseph Medical CenterWrmhodvcpk95-36-8331 History of Present illness Narrative* SPIKE Guzman [...] ICD-10-CM 1. Screening, , for anatomic survey ([facility]) Z36.89 US OB 14+ weeks anatomy scan US OB 14+ weeks anatomy scan 2. STD exposure Z20.2 3. Vaginal discharge N89.8 SURESWAB(R) ADVANCED VAGINITIS PLUS, TMA CHLAMYDIA TRACHOMATIS (GENITO/STI) Neisseria gonorrhea DNA probe, direct 4. Second trimester ([facility]) Z34.92 5. 18 weeks gestation of ([facility]) Z3A.18 POCT urinalysis dipstick manually resulted [...] behalf of: SPIKE Guzman documented in this encounterSt. Joseph Medical CenterIwnnruxihq07-56-3668 History of Present illness Narrative* Shania Antunez [...] nursing note reviewed. Exam conducted with a thread grinder present. Vitals: Estimated body mass index is [...] or undercooked meat, and stay away from [facility]. Patient has been consulted regarding any [...] of: Shania Antunez DO documented in this encounterSt. Joseph Medical CenterSfqphrxdxo62-20-4229 History of Present illness Narrative* Jose Antonio [...] your allergy medication. You reported that the SALES TEAM MEMBER said you could take zyrtec for your allergies. Continue on this medication. The medication should help with the fluid in the inner ear. No follow-ups on file. documented in this encounterSt. Joseph Medical CenterOvhcypuuhr45-52-9527 History of Present illness Narrative* Heather Savage [...] or undercooked meat, and stay away from [facility]. Patient has also been advised to [...] by: Heather Savage LPN documented in this encounterSt. 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 Exam conducted with a thread grinder present. Vitals: Estimated body mass index is [...] note* Diagnosis Screening, , for anatomic survey ([facility]) Encounter for anatomic survey STD exposure Vaginal discharge Leukorrhea, not specified as infective Second trimester ([facility]) state, incidental 18 weeks gestation of ([facility]) documented in this encounter [facility] HealthcareEvaluation note* Diagnosis 22 weeks gestation of ([facility]) Second trimester ([facility]) state, incidental Diabetes mellitus screening Screening for diabetes mellitus documented in this encounter [facility] HealthcareEvaluation note* Diagnosis Cystitis- Primary Unspecified cystitis 26 weeks gestation of ([facility]) Second trimester ([facility]) state, incidental Gastroesophageal reflux in ([facility]) documented in this encounter [facility] HealthcareEvaluation note* Diagnosis Anemia, unspecified type- Primary 28 weeks gestation of ([facility]) Third trimester ([facility]) state, incidental Elevated glucose tolerance test Impaired glucose tolerance test documented in this encounter [facility] HealthcareEvaluation note* Diagnosis Third trimester ([facility]) state, incidental 30 weeks gestation of ([facility]) documented in this encounter [facility] HealthcareEvaluation note* Diagnosis Urinary tract infection without hematuria, site unspecified- Primary Third trimester ([facility]) state, incidental 32 weeks gestation of ([facility]) documented in this encounter [facility] Summary Purpose Family History No Family History Records FoundNo Family History Records Found Advance Directives No Advanced Directives Records FoundNo Advanced Directives Records Found Additional Source Comments INFORMATION SOURCE (unrecogn ized section and content) DATE CREATED AUTHOR 01/04/2022 [facility] DATE CREATED AUTHOR AUTHOR'S ORGANIZ ATION 08/27/2025 [facility] Medical [facility] Care Teams (unrecognized sec tion and content) Team MemberRelationshipSpecialtyStart DateEnd Date Eliana Marquis MD [address] [facility] [address] [place] [address] [facility] - [facility] Jose Antonio Hernandes NP [address] [facility] [address] [place] [address] PCP - [facility]07/27/24Team MemberRelationshipSpecialtyStart DateEnd Date Eliana Marquis MD [address] [place] [address] PCP - [facility]03/04/23 Jose Antonio Hernandes, ACETYLENE TORCH OPERATOR [address] [place] [address] [facility]07/27/24Team MemberRelationshipSpecialtyStart DateEnd Date Eliana Marquis MD [address] [place] [address] [facility]03/04/23Te MemberRelationshipSpecialtyStart DateEnd Date Eliana Marquis MD [address] [place] [address] [facility]03/04/23 Jose Antonio Hernandes, ACETYLENE TORCH OPERATOR [address] [place] [address] [facility]07/27/24Team MemberRelationshipSpecialtyStart DateEnd Date Eliana Marquis MD [address] [place] [address] [facility]03/04/23 Jose Antonio Hernandes, ACETYLENE TORCH OPERATOR [address] [place] [address] [facility]07/27/24Team MemberRelationshipSpecialtyStart DateEnd Date Eliana Marquis MD [address] [place] [address] [facility]03/04/23 Jose Antonio Hernandes, ACETYLENE TORCH OPERATOR [address] [place] [address] [facility]07/27/24Team MemberRelationshipSpecialtyStart DateEnd Date Eliana Marquis MD [address] [place] [address] [facility]03/04/23 Jose Antonio Hernandes, ACETYLENE TORCH OPERATOR [address] [place] [address] [facility]07/27/24Team MemberRelationshipSpecialtyStart DateEnd Date Eliana Marquis MD [address] [place] [address] [facility]03/04/23 Jose Antonio Hernandes, ACETYLENE TORCH OPERATOR [address] [place] [address] [facility]07/27/24Team MemberRelationshipSpecialtyStart DateEnd Date Eliana Marquis MD [address] [place] [address] [facility]03/04/23 Jose Antonio Hernandes, ACETYLENE TORCH OPERATOR [address] [place] [address] [facility]07/27/24Team MemberRelationshipSpecialtyStart DateEnd Date Eliana Marquis MD [address] [place] [address] PCP - GeneralFamily Medicine03/04/23Team MemberRelationshipSpecialtyStart DateEnd Date Eliana Marquis MD [address] [place] [address] PCP - GeneralFamily Medicine03/04/23Team MemberRelationshipSpecialtyStart DateEnd Date Eliana Marquis MD [address] [place] [address] PCP - GeneralFamily Medicine03/04/23Team MemberRelationshipSpecialtyStart DateEnd Date Eliana Marquis MD [address] [place] [address] PCP - GeneralFamily Medicine03/04/23Team MemberRelationshipSpecialtyStart DateEnd Date Eliana Marquis MD [address] [place] [address] PCP - GeneralFamily Medicine03/04/23Team MemberRelationshipSpecialtyStart DateEnd Date Eliana Marquis MD [address] [place] [address] PCP - GeneralFamily Medicine03/04/23Team MemberRelationshipSpecialtyStart DateEnd Date Eliana Marquis MD [address] [place] [address] PCP - GeneralFamily Medicine03/04/23Team MemberRelationshipSpecialtyStart DateEnd Date Eliana Marquis MD [address] [place] [address] PCP - GeneralFamily Medicine03/04/23Team MemberRelationshipSpecialtyStart DateEnd Date Eliana Marquis MD [address] [facility] [address] [place] [address] PCP - GeneralFamily Medicine03/04/23 Jose Antonio Hernandes NP [address] [facility] [address] [place] [address] PCP - [facility]//Team MemberRelationshipSpecialtyStart DateEnd Date Eliana Marquis MD [address] [facility] [address] [place] [address] [facility]/04/23Team MemberRelationshipSpecialtyStart DateEnd Date Eliana Marquis MD [address] [facility] [address] [place] [address] [facility]03/04/23Team MemberRelationshipSpecialtyStart DateEnd Date Eliana Marquis MD [address] [facility] [address] [place] [address] [facility]03/04/23Team MemberRelationshipSpecialtyStart DateEnd Date Eliana Marquis MD [address] [facility] [address] [place] [address] PCP - [facility]03/04/23 Reason for Visit [...] BE BASED ON THE PRIMARY CLINICAL RECORDS. [facility]. provides no warranty or guarantee of the accuracy or completeness of information in this document.
--- NOTE | 2025-09-30 20:04 | US_ITS ---
[place] [id number] Patient Name: DANETTE AYALA MRN: [facility]:[id number] date: 2005 Sex: F Assigned Patient Location: [facility] Current Patient Location: Accession/Order Number: [id number] Exam Date: 09/30/2025 20:07 Report Date: 09/30/2025 22:14 At the request of: SHANIA VAZQUEZ DO Procedure: US OB BPP w non-stress Ultrasound biophysical profile INDICATION: poor growth affecting management of mother COMPARISON: None FINDINGS/ IMPRESSION: Fetus is cephalic position.. cardiac activity 134 beats per minutes. KURTIS: 13.2 cm. Biophysical profile score 8/8. Impression dictated by: Marvel Encinas M.D. 09/30/2025 10:14 PM Dictation Location: [id number] Electronically authenticated by: [id number] Y Date: 09/30/2025 22:14
[2025-09-30 20:27] VITALS: BP 116/57; PULSE 68
== END 2025-09-30 20:50 | disposition home or self-care (01) ==
LOC: US 20:01 → FBC 20:05
PROVIDERS: PCP Family Medicine; Visit Provider Obstetrics & Gynecology
DX: O36.5930 Maternal care for other known or suspected poor fetal growth, third trimester, not applicable or unspecified (principal); Z3A.38 38 weeks gestation of pregnancy; O99.013 Anemia complicating pregnancy, third trimester; D64.9 Anemia, unspecified
CPT/HCPCS: 59025; 76818; 96365; J1756

== ENCOUNTER 2025-10-04 11:34 | Outpatient (OUT) | payer OTHER, SELFPAY ==
--- OUTSIDE RECORDS SUMMARY | 2025-10-04 11:41 | XMS_ITS | CCD ---
Author Organization [facility] CliniSyva Care Team Providers Care Transmission Design Engineer Name Role Phone BENITEZ, DR MUNOZ Primary [...] Unavailable Eliana Marquis MD Primary Care Provider [phone] Cecilio MEASUREMENT COORDINATOR, Jose Antonio Neri Unavailable Cecilio MEASUREMENT COORDINATOR, Jose Antonio Neri Unavailable JOSE ANTONIO HERNANDES Attending Unavailable SHANIA ANTUNEZ Attending Unavailable MUNIRA GARCIA Attending Unavailable MUNIRA GARCIA Referring Unavailable SHANIA ANTUNEZ Attending Unavailable SHANIA ANTUNEZ Attending Unavailable SHANIA ANTUNEZ Attending Unavailable DARLENE OLMSTEAD Attending Unavailable DARLENE OLMSTEAD Referring Unavailable MUNIRA GARCIA Attending Unavailable MUNIRA GARCIA Attending Unavailable Allergies Allergy ClassificationReported Allergen(s)Allergy TypeDate of OnsetReaction(s) Facility (1 source)PenicillinsDrug allergy (disorder)25-04-6685Vyy [facility] Repository (20 sources)PenicillinsDrug Sxfhuyy40-53-7049QzjocrvLPHE Healthcare Medications Current Medications MedicationDrug Class(es)DatesSig (Normalized)Sig (Original)[id number] 200 actuat albuterol 0.09 mg/actuat metered dose inhaler (9 sources)beta2-Adrenergic Agonist End: 63-66-7716tynk 2 puff(s) by inhalation every four hours for wheezing albuterol HFA (ProAir HFA) 90 mcg/act inhaler Inhale 2 puffs every 4 (four) hours if needed for wheezing or shortness of breath 04/05/2025 Discontinued (Other)cephalexin 500 mg oral capsule (4 sources)Cephalosporin AntibacterialStart: 08-25-2025 End: 88-01-9154fojw 1 capsule by mouth in the morning, [...] oral tablet (9 sources)Histamine-1 Receptor Antagonist End: 07-18-8745xyot 1 tablet by mouth once dailyfexofenadine ([facility] Allergy Relief) 180 MG tablet Take 180 mg by mouth Daily 04/05/2025 Discontinued (Other) magnesium oxide 400 mg oral tablet (5 sources)Start: 03-10-2025 End: 83-52-8194nhdl 1 tablet by mouth once dailymagnesium oxide (Mag-Ox) 400 MG tablet Indications: headache in first trimester Take 1 tablet (400 mg) by mouth Daily 30 tablet 11 03/10/2025 04/05/2025 Discontinued (Other) nitrofurantoin, macrocrystals 25 mg / nitrofurantoin, monohydrate 75 mg oral capsule (5 sources)Nitrofuran AntibacterialStart: 07-13-2025 End: 14-30-1081qmpr 1 capsule by mouth in the morningnitrofurantoin, macrocrystal-monohydrate, (Macrobid) 100 MG capsule Indications: Cystitis Take 1 capsule (100 mg) by mouth in the morning and 1 capsule (100 mg) before bedtime. Do all this for 7 days. 14 capsule 07/13/2025 07/20/2025 ActiveStart: 04-06-2025 End: 65-24-3736xqrt 1 capsule by mouth in the morningnitrofurantoin, macrocrystal-monohydrate, (Macrobid) 100 MG capsule Indications: Urinary tract infection without hematuria, site unspecified Take 1 capsule (100 mg) by mouth in the morning and 1 capsule (100 mg) before bedtime. Do all this for 7 days. 14 capsule 04/06/2025 04/13/2025 ActiveStart: 03-10-2025 End: 27-01-0129atlo 1 capsule by mouth in the morningnitrofurantoin, macrocrystal-monohydrate, (Macrobid) 100 MG capsule Indications: UTI symptoms Take 1 capsule (100 mg) by mouth in the morning and 1 capsule (100 mg) before bedtime. Do all this for 7 days. 14 capsule 03/10/2025 03/17/2025 Active omeprazole 20 mg delayed release oral capsule (16 sources)Proton Pump InhibitorStart: 07-13-2025 End: 86-13-0709avld 1 capsule by mouth before mealtimeomeprazole (PriLOSEC) [address] capsule Indications: Gastroesophageal Reflux Disease , Heartburn Take 1 capsule (20 mg) by mouth in the morning. Take before meals. Do not crush or chew. 30 capsule 3 07/13/2025 Activeondansetron 4 mg disintegrating oral tablet (8 sources)Serotonin-3 Receptor AntagonistStart: 03-10-2025 End: 74-85-2326vcgz 1 tablet by mouth every six hours for nauseaondansetron ODT (Zofran-ODT) 4 MG disintegrating tablet Indications: Nausea and vomiting in Take 1 tablet (4 mg) by mouth every 6 (six) hours if needed for nausea or vomiting 30 tablet 2 03/10/2025 04/09/2025 Activepolysaccharide iron complex 391 mg oral capsule (12 sources)Start: 07-27-2025 End: 60-41-6692xvra 1 capsule by mouth once dailyiron polysaccharides (ProFe) 391.3 (180 Fe) MG capsule Indications: Anemia, unspecified type Take 1capsule (391.3 mg) by mouth Daily 30 capsule 6 07/27/2025 08/26/2025 ActiveStart: 04-06-2025 End: 88-07-4738luxm 1 capsule by mouth once dailyiron polysaccharides [...] capsule (5 sources)Serotonin Reuptake InhibitorStart: 11-18-2022 End: 76-13-6284cklm 1 capsule by mouth once dailyFLUoxetine (PROzac) 10 MG capsule Take 1 capsule by mouth 1 (one) time each day at the same time 03/10/2025 Discontinued (Other)fluticasone propionate 0.05 mg/actuat metered dose nasal spray (5 sources)Corticosteroid End: 39-08-9350ygsr 1 spray(s) nasal route once dailyfluticasone (Flonase) 50 MCG/ACT nasal spray Administer 1 spray into each nostril 1 (one) time eachday at the same time 03/10/2025 Discontinued (Other)24 hr metFORMIN hydrochloride 500 mg extended release oral tablet (5 sources)BiguanideStart: 06-07-2024 End: 45-46-4295lfnm 1 tablet by mouth every twenty-four hours at mealtime metFORMIN XR (Glucophage-XR) 500 MG 24 hr tablet Indications: PCOS (polycystic ovarian syndrome) Take 1 tablet (500 mg) by mouth in the evening. Take with meals Do not crush, chew, or split. 30 tablet 11 06/07/2024 03/10/2025 Discontinued (Other) Problems Problem ClassificationProblemDateDocumented DateEpisodic/ChronicAbdominal pain (10 sources)Pelvic and perineal pain; Translations: [Unspecified abdominal pain] Onset: 03-92-9651KoliaehoZjgpyn (20 sources)Exercise-induced asthma; Translations: [Exercise induced bronchospasm]Onset: 712755-21-9127LjgmknyNzipquqyrf and other anemia (2 sources)Iron deficiency anemia; Translations: [Other iron deficiency anemias] 24-60-3013MgraipotWinwbueyka and other anemia (2 sources)Anemia; Translations: [Anemia, unspecified]37-30-9807MfobmhpyRrfivnje mellitus without complication (2 sources)Abnormal glucose tolerance test; Translations: [Other abnormal glucose]00-24-6079KzxnbqwwGvdldoawy of teeth and jaw (2 sources)Jaw pain; Translations: [Jaw pain]76-08-2227CrddwmzrGcwxspktutpoy congenital anomalies (1 source)Bicornate uterus; 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]Onset: 10-18-2021 ChronicGenitourinary symptoms and ill-defined conditions (1 source)Urinary symptoms ; Translations: [Unspecified symptoms and signs involving the genitourinary system]35-99-5159BnlduifnZydqbiitmnqmq and screening for infectious disease (2 sources)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; Translations: [Contact with and (suspected) exposure to infections with a predominantly sexual mode of transmission]26-33-7086VugtetmhYfbnh disorders and dislocations; trauma-related (20 sources)Patellofemoral syndrome of right knee; Translations: [Patellofemoral disorders, right knee]Onset: 642847-40-4404FmlnmqcVtcezlhjs disorders (1 source)Missed period; Translations: [Irregular menstruation, unspecified] 83-63-0383VbpdbdxFcbd disorders (20 sources)Severe major depression, single episode, without psychotic features; Translations: [Major depressive disorder, single episode, severe without psychotic features]Onset: 686610-56-6027FiljxjtRzytv complications of (1 source)Vomiting of , unspecified; Translations: [Unspecified vomiting of , unspecified as to episode of care or not applicable] 57-81-4380CudscilnRobtf complications of (1 source)Headache; Translations: [Other specified related conditions, first trimester]55-16-7137WguyhkicClfgv complications of (2 sources)Gastroesophageal reflux disease in ; Translations: [Diseases of the digestive system complicating , unspecified trimester] 93-39-5620QdxgqahtMrgfv complications of (11 sources) size does not accord with dates; Translations: [Uterine size- date discrepancy, unspecified trimester]Onset: 304952-76-9124GdmhgfsmLnqfr ear and sense organ disorders (2 sources)Bilateral earache; Translations: [Otalgia, bilateral]04-05-2025 EpisodicOther endocrine disorders (20 sources)Polycystic ovary syndrome; Translations: [Polycystic ovarian syndrome]Onset: 978103-83-2911JxbzdnfVspzi endocrine disorders (2 sources)Disorder of endocrine system; Translations: [Endocrine disorder, unspecified]46-38-7218NugpbyyoLfosg female genital disorders (2 sources)Pain in female genitalia on intercourse; Translations: [Unspecified dyspareunia]69-05-0381XmhhdnoAwpoq female genital disorders (2 sources)Vaginal discharge; Translations: [Other specified noninflammatory disorders of vagina]63-68-5578BougvhscZrbfo and delivery including normal (16 sources); Translations: [Encounter for supervision of normal , unspecified, unspecified trimester]29-66-8725PlsxxnpqEtqlu screening for suspected conditions (not mental disorders or infectious disease) (4 sources)Patient encounter status; Translations: [Encounter for other specified screening]92-81-9050WqmyntjqQfpicfu cyst (5 sources)Unspecified ovarian cyst, left side; Translations: [UNSPECIFIED OVARIAN CYST LEFT SIDE]Onset: 96-19-8557ZynrddxzKzdcfdkf codes; unclassified (2 sources)Gestation period, 12 weeks; Translations: [12 weeks gestation of ]30-39-9833LarzaqikCflkljwn codes; unclassified (2 sources)Gestation period, 18 weeks; Translations: [18 weeks gestation of ]01-12-4297SrasjqeoTtulhdzq codes; unclassified (2 sources)Gestation period, 22 weeks; Translations: [22 weeks gestation of ]27-55-2883XmzzgceiYcuvhupv codes; unclassified (2 sources)Gestation period, 26 weeks; Translations: [26 weeks gestation of ]33-25-4153EdisonxgSznhsxbm codes; unclassified (2 sources)Gestation period, 28 weeks; Translations: [28 weeks gestation of ]93-11-1486SztvbnclEpmuwipu codes; unclassified (2 sources)Gestation period, 30 weeks; Translations: [30 weeks gestation of ]37-21-2989TrfenjcnGztidazk codes; unclassified (2 sources)Gestation period, 32 weeks; Translations: [32 weeks gestation of ]64-28-5046KmtetvrsOzjjauc tract infections (6 sources)Urinary tract infectious disease; Translations: [Urinary tract infection, site not specified]89-16-6719Rpdyloyi Results Test NameValueInterpretationReference RangeFacilityCCF FERRITINon 09-07-2025 Ferritin [Mass/Vol]6.0 ng/mLLow8.0 - 252.0 ng/mLNTULSA SPINE & [facility]TY [facility] HealthcareInterpretation and review of laboratory resultsAbnoGeisinger Medical CenterCLINISYNCNTULSA SPINE & [facility] Healthcare MLR HEMOGLOBIN A1Con 62-68-2598Qrhwtiw [Mass/Vol]94 mg/dLNOAZ XewmwvmyfjGiH1s (Bld) [Mass fraction]4.9 %4.5 - 6.2 %[facility] HealthcareComment on above:ADA RECOMMENDED LIMIT 4.0 - 6.0 ADA THERAPEUTIC TARGET < 7.0 ACTION SUGGESTED > 7.0 CLINISYNCNOAZ HealthcareALL CBC WITH AUTO DIFFon 84-38-8956SXAODCBPY ABSOLUTE AUTO0.0NOAZ HealthcareBasophils/100 WBC (Bld)0.3 %0.2 - 2.0 %[facility] Eosinophils/100 WBC (Bld)0.9 %0.9 - 7.0 %[facility] HealthcareErythrocyte distribution width (RBC) [Ratio]13.6 %11.0 - 15.0 %NOM HealthcareHematocrit (Bld) [Volume fraction]28.5 %Low36.0 - 48.0 %NOM HealthcareHemoglobin (Bld) [Mass/Vol]9.4 g/dLLow12.0 - 16.0 g/dLNOSaint Louis University HospitalIMMATURE GRANULOCYTES ABS AUTO0.03NOAZ HealthcareImmature granulocytes/100 WBC (Bld)0.4 %0.0 - 0.5 %[facility] Interpretation and review of laboratory resultsAbMcLaren Oakland LYMPHOCYTES ABSOLUTE AUTO1.0LowLiberty HospitalLymphocytes/100 WBC (Bld)13.7 %Low 20.5 - 60.0 %[facility] HospitalH (RBC) [Entitic mass]26.1 pgLow26.7 - 34.0 pgResearch Belton HospitalHC (RBC) [Mass/Vol]33.0 g/dL29.9 - 35.2 g/dLResearch Belton HospitalV (RBC) [Entitic vol]79.2 fLLow81.0 - 99.0 fLLiberty HospitalMONOCYTES ABSOLUTE AUTO0.6 [facility] HealthcareMonocytes/100 WBC (Bld)7.3 %1.7 - 12.0 %[facility] NEUTROPHILS ABSOLUTE AUTO5.8L[facility]ty HospitalNeutrophils/100 WBC (Bld)77.4 %High 43.0 - 75.0 %[facility] HospitalPlatelet mean volume (Bld) [Entitic vol]11.1 fL9.5 - 13.5 fLLiberty HospitalTB EO #0.1NOMS [facility] HospitalTB QTP530YZIWSaint John's [facility]ree[facility] RBC 3.60LowNOSaint Louis University HospitalTB WBC7.5L[facility] HospitalCLINISYNCNGolden Valley Memorial Hospital Urinalysis macro (dipstick) panel (U)on 41-16-8034Orcxzsore, UANegativeNegative - 4(70) +++ mg/dLNOMS HealthcareBlood, UANegativeNegative - 50 Tarun/mcLNOMS HealthcareClarity, UAClearNOAZ HealthcareColor, UAYellowNOAZ HealthcareGlucose, UANegativeNegative - 1999(110) ++++ mg/dLNOAZ HealthcareInterpretation and review of laboratory resultsAbnoGeisinger Medical CenterKetones, UANegativeNegative - 160(16) ++++ mg/dLMOAB REGIONAL [facility]ITAL HealthcareLeukocytes, UA1+Negative - 500+++ Joelle/mcLNOMS HealthcareNitrite, UANegativeNegative - PositiveNOMS HealthcarepH, UA6.05 - 9 NOM HealthcareProtein, UATraceNegative - 2000(20) ++++ mg/dLNOMS HealthcareSpec Grav, UA1.0101 - 1.03NOMS HealthcareUrobilinogen, UA2.00.2 - 12 mg/dLNOAZ HealthcareNOMS HealthcareGLUCOSE TOLERANCE 3 HOURon 72-62-5333JKLCCYZ TOLERANCE 3 HOURmg/dLNOMS HealthcareComment on above:GLU FAST 75 (<95) Col: 08/22/25 0844 GLU 1HR () Col: 08/22/25 0928 GLU 2HR () Col: 08/22/25 1028 GLU 3HR () Col: 08/22/25 1128 CLINISYNCNOMS HealthcareTBH UA (CLEAN/CATCH) DOOR PULLER/MICRO IF IND.on 08-19-2025 BILIRUBIN URINENegativeNEGATIVENOMS HealthcareBLOOD URINENegativeNEGATIVENOMS [...] HealthcareCLINISYNCNOMS HealthcareUS OB FOLLOW UP TRANSABDOMINAL APPROACHon 18-24-1822JK OB FOLLOW UP TRANSABDOMINAL APPROACHFINDINGS: Comparison May [...] Delivery: 10/14/25 Gestational Age as of 07/13/2025: 19z5rQgjhlgpmmp macro (dipstick) panel (U)on 96-57-7655Xgvcvkfdo, UANegativeNegative - 4(70) +++ mg/dLNOMS HealthcareBlood, UANegativeNegative [...] mg/dLNOMS HealthcareNOMS HealthcareUrinalysis macro (dipstick) panel (U)on 02-87-2738Awvtgmqxs, UA NegativeNegative - 4(70) +++ mg/dLNOMS HealthcareBlood, UANegativeNegative - 50 Tarun/mcLNOMS HealthcareClarity, UAClearNOMS HealthcareColor, UAYellowNOMS HealthcareGlucose, UANegativeNegative - 1999(110) ++++ mg/dLNOMS Healthcare Interpretation and review of laboratory resultsNormalLiberty HospitalKetones, UA NegativeNegative - 160(16) ++++ mg/dLLiberty HospitalLeukocytes, UANegative Negative - 500+++ Joelle/mcLNOSaint Louis University HospitalNitrite, UANegativeNegative - Positive NOM HealthcarepH, UA75 - 9NOAZ HealthcareProtein, UANegativeNegative - 2000(20) ++++ mg/dLLiberty HospitalSpec Grav, UA1.0051 - 1.03NOSaint Louis University HospitalUrobilinogen, UA2.00.2 - 12 mg/dLKansas City VA Medical Center HealthcareALL CBC WITH AUTO DIFFon 18-16-7399DTGGGFIGQ ABSOLUTE FRQA7XRNTLiberty HospitalBasophils/100 WBC (Bld)0.3 %0.2 - 2.0 %[facility] HospitalEosinophils/100 WBC (Bld)1.3 %0.9 - 7.0 %[facility] Erythrocyte distribution width (RBC) [Ratio]14.3 %11.0 - 15.0 %[facility] Hematocrit (Bld) [Volume fraction]32 %Low36.0 - 48.0 %[facility] HospitalHemoglobin (Bld) [Mass/Vol]10.4 g/dLLow12.0 - 16.0 g/dLLiberty HospitalIMMATURE GRANULOCYTES ABS AUTO0.03L[facility] HospitalImmature granulocytes/100 WBC (Bld)0.4 %0.0 - 0.5 % [facility] HospitalInterpretation and review of laboratory resultsAbnoGeisinger Medical CenterLYMPHOCYTES ABSOLUTE NVRG8PelCPWO [facility] HospitalLymphocytes/100 WBC (Bld) 14 %Low20.5 - 60.0 %[facility] HospitalH (RBC) [Entitic mass]26.2 pgLow26.7 - 34.0 pgLiberty HospitalMCHC (RBC) [Mass/Vol]32.5 g/dL29.9 - 35.2 g/dLLiberty Hospital MCV (RBC) [Entitic vol]80.6 fLLow81.0 - 99.0 fLLiberty HospitalMONOCYTES ABSOLUTE AUTO0.3NOSaint Louis University HospitalMonocytes/100 WBC (Bld)4 %1.7 - 12.0 %[facility] NEUTROPHILS ABSOLUTE AUTO5.7NOSaint Louis University HospitalNeutrophils/100 WBC (Bld)80 %High43.0 - 75.0 %NOMS HealthcarePlatelet mean volume (Bld) [Entitic vol]10.9 fL9.5 - 13.5 fLNOMS HealthcareTBH EO #0.1NOMS HealthcareTBH VBY869SMUL HealthcareTBH RBC3.97 LowNOMS HealthcareTBH WBC7.1NOMS HealthcareCLINISYNCNOMS HealthcareUrinalysis macro (dipstick) panel (U)on 09-03-1435Qxkfdcaqb, UANegativeNegative - 4(70) +++ mg/dLNOMS HealthcareBlood, UANegativeNegative [...] - 12 mg/dLNOAZ HealthcareNOAZ HealthcareRECURRENT VAGINITIS (HTRX)on 75-56-5882MRFOUIZGO ERSENNQ9UVCK HealthcareATOPOBIUM VAGINAE Not detectedNOMS HealthcareBVAB 2,3 (BACTERIAL VAGINOSIS ASSOCIATED BACTERIA 2, 3); MOBILUNCUS SPP22.558AbnormalNOAZ HealthcareBVAB 2,3 (BACTERIAL VAGINOSIS ASSOCIATED BACTERIA 2, 3); MOBILUNCUS SPPDetectedAbnormalNOAZ HealthcareCANDIDA ALBICANS, PARAPSILOSIS, SCTWSGQVGI3GGKP HealthcareCANDIDA ALBICANS, PARAPSILOSIS, TROPICALISNot detectedNOMS HealthcareCANDIDA HOGNVZRD0OIAL HealthcareCANDIDA GLABRATANot detectedNOMS HealthcareCANDIDA SQTBWQ2VPYS HealthcareCANDIDA KRUSEINot detectedNOMS HealthcareCHLAMYDIA KXAPDEJGZAY0PTCB HealthcareCHLAMYDIA TRACHOMATISNot detectedNOMS HealthcareERMB, C; MEFA25.177 AbnormalNOMS HealthcareERMB, C; MEFADetectedAbnormalNOMS HealthcareGARDNERELLA KXSJKSFZF96.544AbnormalNOMS HealthcareGARDNERELLA VAGINALISDetectedAbnormalNOAZ HealthcareInterpretation and review of laboratory resultsAbnormalNOAZ Healthcare MEGASPHAERA (TYPES 1, 2)0NOMS HealthcareMEGASPHAERA (TYPES 1, 2)Not detectedNOMS HealthcareMYCOPLASMA AXVATGKWDH7GRNM HealthcareMYCOPLASMA GENITALIUMNot detected NOMS HealthcareNEISSERIA QPPDLNAOKQA6PQZV HealthcareNEISSERIA GONORRHOEAENot detectedNOMS HealthcareTET B, TET M21.747AbnormalNOMS HealthcareTET B, TET M DetectedAbnormalNOMS HealthcareTRICHOMONAS DPPLUDMVL2ZIWU HealthcareTRICHOMONAS VAGINALISNot detectedNOMS HealthcareNOAZ HealthcareUS OB 14+ WEEKS ANATOMY SCAN on 21-96-3088AS OB 14+ WEEKS ANATOMY SCANFINDINGS: A single, [...] Delivery: 10/14/25 Gestational Age as of 05/18/2025: 68g6wPiqncvwuqs macro (dipstick) panel (U)on 80-91-0997Actbcurfi, UANegativeNegative - 4(70) +++ mg/dLNOMS HealthcareBlood, UANegativeNegative [...] HealthcareNOMS Healthcare Urinalysis macro (dipstick) panel (U)on 88-90-0886Edpkdmdsi, UANegativeNegative - 4(70) +++ mg/dLNOMS HealthcareBlood, UAPositiveNegative - 50 Traun/mcLNOAZ HealthcareComment on above:traceClarity, UACloudyNOMS HealthcareColor, UAYellow NOMS HealthcareGlucose, UANegativeNegative - 2000(110) ++++ mg/dLNOAZ Healthcare Interpretation and review of laboratory resultsAbnormalNOAZ HealthcareKetones, UANegativeNegative - 160(16) ++++ mg/dLNOAZ HealthcareLeukocytes, UATrace Negative - 500+++ Joelle/mcLNOAZ HealthcareNitrite, UAPositiveNegative - Positive NOMS HealthcareComment on above:positivepH, UA7.55 - 9NOAZ HealthcareProtein, UA NegativeNegative - 2000(20) ++++ mg/dLNOAZ HealthcareSpec Grav, UA1.021 - 1.03 NOMS HealthcareUrobilinogen, UA0.20.2 - 12 mg/dLNOSaint Louis University HospitalNOAZ Healthcare ALL CBC WITH AUTO DIFFon 21-39-7219CHFCAKOOG ABSOLUTE QODF0VVON Healthcare Basophils/100 WBC (Bld)0.5 %0.2 - 2.0 %NOMS HealthcareEosinophils/100 WBC (Bld) 2.5 %0.9 - 7.0 %NOM HealthcareErythrocyte distribution width (RBC) [Ratio]17.3 %High11.0 - 15.0 %NOMS HealthcareHematocrit (Bld) [Volume fraction]32.1 %Low36.0 - 48.0 %NOM HealthcareHemoglobin (Bld) [Mass/Vol]10.4 g/dLLow12.0 - 16.0 g/dL NOMS [facility] HospitalIMMATURE GRANULOCYTES ABS AUTO0.01NOAZ HealthcareImmature granulocytes/100 WBC (Bld)0.1 %0.0 - 0.5 %NOM HealthcareInterpretation and review of laboratory resultsAbnormalMOAB REGION[facility] HealthcareLYMPHOCYTES ABSOLUTE AUTO1.1 LowNOAZ HealthcareLymphocytes/100 WBC (Bld)14.4 %Low20.5 - 60.0 %NOMSaint [facility] MCH (RBC) [Entitic mass]23.8 pgLow26.7 - 34.0 pgNOSaint Louis University HospitalMCHC (RBC) [Mass/Vol]32.4 g/dL29.9 - 35.2 g/dLNOMS HealthcareMCV (RBC) [Entitic vol]73.5 fL Low81.0 - 99.0 fLNOMS HealthcareMONOCYTES ABSOLUTE AUTO0.5NOMS Healthcare Monocytes/100 WBC (Bld)7.1 %1.7 - 12.0 %NOMS HealthcareNEUTROPHILS ABSOLUTE AUTO 5.5NOMS HealthcareNeutrophils/100 WBC (Bld)75.4 %High43.0 - 75.0 %NOMS HealthcarePlatelet mean volume (Bld) [Entitic vol]11.1 fL9.5 - 13.5 fLNOMS HealthcareTBH EO #0.2NOMS HealthcareTBH [id number] HealthcareTBH RBC4.37NOMS HealthcareTBH WBC7.3NOMS HealthcareCLINISYNCNOMS HealthcareUS OB TRANSVAGINALon 63-87-0545JO OB TRANSVAGINALEXAM: US OB TRANSVAGINAL HISTORY: Dating. [...] II, MD, PHD at 11-Mar-2025 10:13:58 AM [facility] TeleradiologyNormalNot AvailableComment on above:Order Comment: US OB TRANSVAGINAL No LMP recorded.ALL DEHYDROEPIANDROSTERONEon 53-68-7437SWJV, EQETT902 ng/dL40 - 491 ng/dLNOAZ HealthcareComment on above:Age [...] developed and its performance characteristics determined by [facility]. It has not been cleared or approved by the Food and Drug Administration. Performed at: [address] [id number] [employer]ending Tank Tender Helper: Eliud Rodriguez MD, Phone: [phone] [facility] ANTI-MULLERIAN HORMONEon 62-53-5753IOKC-MULLERIAN HORMONE (AMH)2.79 ng/mL.[facility] HealthcareComment on above:For assays employing antibodies, the possibility exists for interference by heterophile antibodies in the samples.1 1.Gracie Hernandez Interferences in Immunoassays - still a threat. Clin. Chem. 2000; 46: 6016-6777. This test was developed and its performance characteristics determined by [facility]. It has not been cleared or approved [...] exclude an AMH-secreting ovarian tumor. Performed at: [employer] [facility] [facility] [employer] [address] [place] [id number] [employer]ending Tank Tender Helper: Burke Mackey MD, Phone: [phone] [facility] DHEA SULFATEon 19-34-2529IDHL-UROSWON227.0 ug/dL 110.0 - 433.2 ug/dLNOAZ HealthcareALL FOLLICLE STIMULATING HORMONEon 06-16-2024 FSH4.6. mIU/mLNOMS HealthcareComment on above:Adult Female Range Follicular phase 3.5 - 12.5 Ovulation phase 4.7 - 21.5 Luteal phase 1.7 - 7.7 Postmenopausal 25.8 - 134.8 Performed at: [facility] [id number] Blending Tank Tender Helper: Nate Don PhD, Phone: [phone] ALL LUTEINIZING HORMONEon 33-00-5133QZVAEVXGZUV HORMONE(LH)7.6. mIU/mLNOMS HealthcareComment on above:Adult Female Range Follicular phase 2.4 - 12.6 Ovulation phase 14.0 - 95.6 Luteal phase 1.0 - 11.4 Postmenopausal 7.7 - 58.5 No Panel Informationon 46-92-2735JRKRBABTPJWHP HealthcareALL CBC WITH AUTO DIFF on 83-72-1151AHTIIWCAV ABSOLUTE AUTO0.0NOSaint Louis University HospitalBasophils/100 WBC (Bld)0.7 %0.2 - 2.0 %NOMS [facility] HospitalEosinophils/100 WBC (Bld)2.3 %0.9 - 7.0 %[facility] HospitalErythrocyte distribution width (RBC) [Ratio]15.6 %High11.0 - 15.0 % NOMSaint Mary'S Hospital Of Blue SpringsHematocrit (Bld) [Volume fraction]34.8 %Low36.0 - 48.0 %NOMSaint Mary'S Hospital Of Blue SpringsHemoglobin (Bld) [Mass/Vol]10.9 g/dLLow12.0 - 16.0 g/dLNOSaint Louis University Hospital IMMATURE GRANULOCYTES ABS AUTO0.01NOSaint Louis University HospitalImmature granulocytes/100 WBC (Bld)0.2 %0.0 - 0.5 %NOMSaint Mary'S Hospital Of Blue SpringsInterpretation and review of laboratory resultsAbnormalNOSaint Louis University HospitalLYMPHOCYTES ABSOLUTE AUTO1.4NOMS [facility] Lymphocytes/100 WBC (Bld)23.6 %20.5 - 60.0 %NOMShriners Hospitals for ChildrenH (RBC) [Entitic mass]23.2 pgLow26.7 - 34.0 pgNOSelect Specialty HospitalHC (RBC) [Mass/Vol]31.3 g/dL29.9 - 35.2 g/dLNOAZ HealthcareMCV (RBC) [Entitic vol]74.0 fLLow81.0 - 99.0 fLNOMS HealthcareMONOCYTES ABSOLUTE AUTO0.5NOMS HealthcareMonocytes/100 WBC (Bld)7.8 % 1.7 - 12.0 %NOMS HealthcareNEUTROPHILS ABSOLUTE AUTO4.0NOMS Healthcare Neutrophils/100 WBC (Bld)65.4 %43.0 - 75.0 %NOMS HealthcarePlatelet mean volume (Bld) [Entitic vol]10.3 fL9.5 - 13.5 fLNOMS HealthcareTBH EO #0.1NOMS Healthcare TBH [id number] HealthcareTBH RBC4.70NOMS HealthcareTB WBC6.1NOMS Healthcare CLINISYNCNOAZ HealthcareUS PELVIS W/ TRANSVAGINALon 06-66-5399[place] [address] Ultrasound Report Signed Patient: DANETTE AYALA MR#: [id number] : 2005 Acct:[id number] Age/Sex: 18 / F ADM Date: 06/15/24 Loc: [facility] Attending Dr: Shania Antunez D.O. Ordering Physician: Shania Antunez D.O. Date of Service: 06/15/24 Procedure(s): US pelvis w/ transvaginal Accession Number(s): [id number] cc: ELIANA MARQUIS ; Shania Antunez D.O. [facility] [place] [id number] Patient Name: DANETTE AYALA MRN: [facility]:[id number] date: 2005 Sex: F Assigned Patient Location: [facility] Current Patient Location: LAB Accession/Order Number: [id number] Exam Date: 06/15/2024 13:11 Report Date: 06/15/2024 [...] M.A. Signed By: 06/15/242203 DD/ 01 TD/TT: Lgsw:ARLETHRadiology, Radiologist, - 06/15/2024 [place] [address] Ultrasound Report Signed Patient: DANETTE AYALA MR#: [id number] : 2005 Acct:[id number] Age/Sex: 18 / F ADM Date: 06/15/24 Loc: [facility] Attending Dr: Shania Antunez D.O. Ordering Physician: Shania Antunez D.O. Date of Service: 06/15/24 Procedure(s): US pelvis w/ transvaginal Accession Number(s): [id number] cc: ELIANA MARQUIS ; Shania Antunez D.O. The [place] [id number] Patient Name: DANETTE AYALA MRN: [id number] date: 2005 Sex: F Assigned Patient Location: [facility] Current Patient Location: LAB Accession/Order Number: [id number] Exam Date: 06/15/2024 13:11 Report Date: 06/15/2024 [...] M.A. Signed By: 06/15/242203 DD/ 01 TD/TT: Lgsw: [facility] Ui LinkRadiology Study observation (narrative)[facility] Ui Link PELVIS W/ TRANSVAGINALOrdered By: Radiologist Radiology on 56-40-2013JXHO Ui Link Work Phone: US PELVIS AND TRANSVAGon [id number] PELVIS AND TRANSVAGEXAMINATION: US PELVIS AND TRANSVAG [...] Electronically authenticated by: KIAN MONREAL Date: 2022-01-02 14:40[place] PELVIS AND TRANSVAGon 60-31-2650DA PELVIS AND TRANSVAG EXAMINATION: US PELVIS AND [...] authenticated by: MELVIN ALONSO Date: 2021-10-12 15:53NormalThe [facility] AUTO DIFFon [id number] #0.0 103/ulNormal0.0-0.1The [facility] HospitalComment on above:Performed By: #### CBC #### [facility] [address], [place] [address] Cain KarenBasophils/100 WBC (Bld)0.3 %Normal0.2-2.0The [facility] Comment on above:Performed By: #### CBC #### [facility] [address], [place] [address] Cain KarenEO #0.0 103/ulNormal0.0-0.7The [facility] HospitalComment on above: Performed By: #### CBC #### [facility] [address], [place] [address] Cain KarenEosinophils/100 WBC (Bld)0.3 %Critically low0.9-7.0The [facility] HospitalComment on above:Performed By: #### CBC #### [facility] [address], [place] [address] Cain KarenErythrocyte distribution width (RBC) [Ratio]14.3 %Ouqjip42.0-15.0The [facility] HospitalComment on above:Performed By: #### CBC #### [facility] [address] [place] [address] Cain KarenHematocrit (Bld) [Volume fraction]34.1 %Critically low36.0-48.0The [facility] HospitalComment on above:Performed By: #### CBC #### [facility] [address] [place] [address] Cain KarenHemoglobin (Bld) [Mass/Vol]11.1 g/dLCritically low12.0-16.0The [facility] HospitalComment on above:Performed By: #### CBC #### [facility] [address] [place] [address] Cain KarenIG #0.02 10e3/ulNormal0.00-0.03The [facility] HospitalComment on above:Performed By: #### CBC #### [facility] [address] [place] [address] Cain KarenIG %0.2 %Normal0.0-0.5The [facility] HospitalComment on above: Performed By: #### CBC #### [facility] [address] [place] [address] Cain KarenLYMPH #0.9 103/ulCritically low1.2-3.8The [facility] HospitalComment on above:Performed By: #### CBC #### [facility] [address] [place] [address] Cain KarenLymphocytes/100 WBC (Bld)9.3 %Critically low20.5-60.0The [facility] HospitalComment on above:Performed By: #### CBC #### [facility] [address] [place] [address] Cain KarenMANUAL DIFF REQNONormalThe [facility]ike Community HospitalComment on above: Performed By: #### CBC #### [facility] [address] [place] [address] Cain KarenMCH (RBC) [Entitic mass]25.6 pgCritically low26.7-34.0The [facility] HospitalComment on above:Performed By: #### CBC #### [facility] [address] [place] [address] Cain ChapmanMCHC (RBC) [Mass/Vol]32.6 g/zNYyqbdv69.9-35.2The [facility] Comment on above:Performed By: #### CBC #### [facility] [address] [place] [address] Cain KarenMCV (RBC) [Entitic vol]78.8 fLCritically low79.1-95.6The [facility] HospitalComment on above:Performed By: #### CBC #### [facility] [address] [place] [address] Cain OlsonenMONO #0.6 103/ulNormal0.3-0.8The [facility] HospitalComment on above: Performed By: #### CBC #### [facility] [address] [place] [address] Cain KarenMonocytes/100 WBC (Bld)6.3 %Normal1.7-12.0The [facility] Comment on above:Performed By: #### CBC #### [facility] [address] [place] [address] Cain KarenNEUT #8.0 103/ulCritically high1.4-6.5The [facility] HospitalComment on above:Performed By: #### CBC #### [facility] [address] [place] [address] Cain KarenNeutrophils/100 WBC (Bld)83.6 %Critically high43.0-75.0The [facility] HospitalComment on above:Performed By: #### CBC #### [facility] [address] [place] [address] Cain KarenPlatelet mean volume (Bld) [Entitic vol]11.0 fLNormal9.5-13.5The [facility] HospitalComment on above:Performed By: #### CBC #### [facility] [address] [place] [address] Cain QiggxSEG504 103/rxGxisub069-299Bbv [facility] Hospitalment on above: Performed By: #### CBC #### [facility] [address], [place] [address] Cain ChapmanRBC4.33 106/ulNormal3.40-5.30The [facility] on above: Performed By: #### CBC #### [facility] [address], [place] [address] Cain OlsonenWBC9.6 103/ulNormal4.0-11.0The [facility] on above: Performed By: #### CBC #### [facility] [address], [place] [address] Cain KarenCT ABD/PELV W CONon 38-77-1487TJ ABD/PELV W CONCLINICAL HISTORY: ABDOMINAL DISTENSION (GASEOUS). [...] Electronically authenticated by: HARSHA AGUILAR Date: 2021-05-05 14:12[facility] URINE PROFILEon 99-13-7035Lwrbuwoph Ql (U)NegativeNormal NEGATIVESumma Health Barberton CampusComment on above:Performed By: #### ERUR, PREGU #### [facility] [address] [place] [address] Cain KarenClarity (U)CLEARNormalCLEARSumma Health Barberton CampusComment on above: Performed By: #### ERUR, PREGU #### [facility] [address] [place] [address] Cain KarenColor (U)LT. YELLOWNormalYELLOWSumma Health Barberton CampusComment on above:Performed By: #### ERUR, PREGU #### [facility] [address] [place] [address] Cain KarenERUAHDA micrscopic examination will be performed if indicated.Normal [facility] Barberton CampusComment on above:Performed By: #### ERUR, PREGU #### [facility] [address] [place] [address] Cain KarenGlucose Ql (U)NegativeNormalNEGATIVESumma Health Barberton CampusComment on above:Performed By: #### ERUR, PREGU #### [facility] [address] [place] [address] Cain KarenHemoglobin Ql (U)NegativeNormalNEGATIVESumma Health Barberton CampusComment on above:Performed By: #### ERUR, PREGU #### [facility] [address] [place] [address] Cain KarenKetones Ql (U)NegativeNormalNEGATIVESumma Health Barberton CampusComment on above:Performed By: #### ERUR, PREGU #### [facility] [address] [place] [address] Cani KarenLEUKOCYTESNegativeNormalNEGATIVESumma Health Barberton CampusComment on above:Performed By: #### ERUR, PREGU #### [facility] [address] [place] [address] Cain OlsonenNitrite Ql (U)NegativeNormalNEGATIVEThe [facility] Community HospitalComment on above:Performed By: #### BE, PREGU #### [facility] [address] [place] [address] Cain OlsonenpH (U)6.5 [pH]Normal5-9The [facility] HospitalComment on above: Performed By: #### BE, PREGU #### [facility] [address] [place] [address] Cain OlsonenSPEC GRAVITY1.005Iyveek9.005-<=1.025The [facility] Community HospitalComment on above:Performed By: #### BE, PREGU #### [facility] [address] [place] [address] Cain ChapmanUA PROTEINNegativeNormalNEGATIVE/ TRACEThe Dobson HospitalComment on above:Performed By: #### BE, PREGU #### [facility] [address] [place] [address] Cain OlsonenUR MICRO INDNOT INDICATEDNormalThe [facility] Community HospitalComment on above:Performed By: #### BE, PREGU #### [facility] [address] [place] [address] Cain ChapmanUrobilinogen Qn (U)0.2 {Dagoberto'U}/dLNormal0.2 - 1.0The [facility] HospitalComment on above:Performed By: #### KIERANR, PREGU #### [facility] [address] [place] [address] Cain KarenLIPASEon 85-93-5802Scerlo [Catalytic activity/Vol]53.0 U/LNormal 23.0-300.0The [facility] HospitalComment on above:Performed By: #### CMP, LIPA #### [facility] [address] [place] [address] Cain KarenPREGNANCY URon 18-33-5964JZXXWMDYN, QUALNegativeNormalNEGATIVEThe [facility]son HospitalComment on above:Performed By: #### KIERANR, PREGU #### [facility] [address] [place] [address] Cain KarenPROF 14(COMP METB)on 22-27-4504Hrcbqwj [Mass/Vol]3.7 g/dLNormal 3.5-5.0Sum[facility] Barberton CampusComment on above:Performed By: #### CMP, LIPA #### [facility] [address] [place] [address] Cain KarenAlbumin/Globulin [Mass ratio]1.2 {ratio}NormalSumma Health Barberton Campus Comment on above:Performed By: #### CMP, LIPA #### [facility] [address] [place] [address] Cain KarenALP [Catalytic activity/Vol]86 U/TBonejc28-499IygSumma Health Barberton Campus Comment on above:Performed By: #### CMP, LIPA #### [facility] [address] [place] [address] Cain KarenALT [Catalytic activity/Vol]22 U/LNormal9-52[facility] Comment on above:Performed By: #### CMP, LIPA #### [facility] [address] [place] [address] Cain KarenAnion gap [Moles/Vol]11.6 mmol/LNormalSumma Health Barberton CampusComment on above:Performed By: #### CMP, LIPA #### [facility] [address] [place] [address] Cain KarenAST [Catalytic activity/Vol]15 U/RYiwshm00-30ByySumma Health Barberton Campus Comment on above:Performed By: #### CMP, LIPA #### [facility] [address] [place] [address] Cain KarenBilirubin [Mass/Vol]0.5 mg/dLNormal0.2-1.3TCleveland Clinic [facility] Comment on above:Performed By: #### CMP, LIPA #### [facility] [address] [place] [address] Cain KarenCalcium [Mass/Vol]9.2 mg/dLNormal8.4-10.2[facility] Comment on above:Performed By: #### CMP, LIPA #### [facility] [address] [place] [address] Cain KarenChloride [Moles/Vol]105 mmol/FAhjfvi58-760Gnh [facility] Comment on above:Performed By: #### CMP, LIPA #### [facility] [address] [place] [address] Cain KarenCO2 [Moles/Vol]25.4 mmol/WAbwgmt10.0-30.0The [facility] Comment on above:Performed By: #### CMP, LIPA #### [facility] [address] [place] [address] Cain KarenCreatinine [Mass/Vol]0.72 mg/dLNormal0.52-1.04[facility] Comment on above:Performed By: #### CMP, LIPA #### [facility] [address] [place] [address] Cain KarenGlobulin (S) [Mass/Vol]3.2 g/dLNormalThe [facility] HospitalComment on above:Performed By: #### CMP, LIPA #### [facility] [address] [place] [address] Cain KarenGlucose [Mass/Vol]88 mg/wXVbyfaq56-893NlpSumma Health Barberton CampusComment on above:Performed By: #### CMP, LIPA #### [facility] [address] [place] [address] Cain KarenPotassium [Moles/Vol]4.0 mmol/LNormal3.4-5.0The [facility] Comment on above:Performed By: #### CMP, LIPA #### [facility] [address] [place] [address] Cain KarenProtein [Mass/Vol]6.9 g/dLNormal6.1-8.2[facility] Barber[facility] CampusComment on above:Performed By: #### CMP, LIPA #### [facility] [address] [place] [address] Cain KarenSodium [Moles/Vol]138 mmol/KEvvbad794-809Pmy [facility] Comment on above:Performed By: #### CMP, LIPA #### [facility] [address] [place], [place] [address] Cain KarenUrea nitrogen [Mass/Vol]8.0 mg/dLNormal6.4-19.3The [facility] Comment on above:Performed By: #### CMP, LIPA #### [facility] [address] [place], [place] [address] Cain KarenUrea nitrogen/Creatinine [Mass ratio]11.1 mg/mgNoTrinity Health System East CampusComment on above:Performed By: #### JUNE, LIPA #### [facility] [address] [place], [place] [address] Cain KarenUS PELVIS TRANSVAGon 46-99-2015QM PELVIS TRANSVAGEXAM: US PELVIS TRANSVAG HISTORY: Cyst [...] Electronically authenticated by: JONI GUZMAN Date: 2021-05-05 15:27[facility] Vital Signs Date TimeVital SignValuePerforming ZhujzrllkFcwmuzlk61-48-2219 15:28-0400Body mass index (BMI) [Ratio]28.97 kg/m2Amy Gigi PA Work Phone: [phone] HospitalEtjwfrhozp26-52-9943 15:28-0400Body .57 kgAmy Gigi PA Work Phone: [phone] [place], [place] [address]Sqzypfqktr08-70-7578 15:28-0400Diastolic blood ulawgmai92 mm[Hg]Munira Gigi PA Work Phone: [phone] [place], [place] [address]Ynfulylbol90-91-8803 15:28-0400Systolic blood onwnwfsw270 mm[Hg]Munira Garcia PA Work Phone: [phone] [place], [place] [address]Qecnxbames41-86-2286 15:16-0400Body mass index (BMI) [Ratio]28.92 kg/m2Amy Gigi PA Work Phone: [phone] [place], [place] [address]Kxrpdjnnim87-69-2969 15:16-0400Body fqqujh25.43 kgMunira Garcia PA Work Phone: [phone] [place], [place] [address]Cnwbsjnjkb04-63-3410 15:16-0400Diastolic blood rmzesypg34 mm[Hg]Munira Garcia PA Work Phone: [phone] [place], [place] [address]Qflkjvzrdy07-25-9949 15:16-0400Systolic blood hhicvrxv968 mm[Hg]Munira Garcia PA Work Phone: [phone] [place], [place] [address]Jppbulseli05-80-1591 13:59-0400Body mass index (BMI) [Ratio]28.84 kg/y3RkafbenjDarlene Olmstead MEASUREMENT COORDINATOR Work Phone: [phone] [place], [place] [address]Xsnvhxoahs48-94-6705 13:59-0400Body aguzww84.2 kg Darlene Angelesly MEASUREMENT COORDINATOR Work Phone: [phone] [place], [place] [address]Hewlvkutwl23-93-1621 13:59-0400Diastolic blood nvewnpso92 mm[Hg]Darlene Ishan MEASUREMENT COORDINATOR Work Phone: [phone] [place], [place] [address]Awlxakrgzr76-05-5664 13:59-0400Systolic blood gldriliq191 mm[Hg]Darlene Angelesly MEASUREMENT COORDINATOR Work Phone: [phone] [place], [place] [address]Lsryvbxkry97-77-0866 15:28-0400Body mass index (BMI) [Ratio]28.69 kg/x2Alqlf Tulio DO Work Phone: [facility] HospitalVqtcoyfuuz69-48-8984 15:28-0400Body holvtp27.81 kgCorey Tulio DO Work Phone: [phone] [place], [place] [address]Kcbvkhyfth91-08-0743 15:28-0400Diastolic blood cjjytacl08 mm[Hg]Shania Tulio DO Work Phone: [phone] [place], [place] [address]Ilmynmpdxj90-65-7799 15:28-0400Systolic blood xhvyezfy108 mm[Hg]Shania Tulio DO Work Phone: [phone] [place], [place] [address]Wigivgzjbn51-12-3335 13:52-0400Body mass index (BMI) [Ratio]28.97 kg/n6Kupyk Tulio DO Work Phone: [phone] [place], [place] [address]Epkqortmji91-83-0643 13:52-0400Body .57 kgCorey Tulio DO Work Phone: [phone] [place], [place] [address]Olgziuievz39-54-3331 13:52-0400Diastolic blood romtlbgy22 mm[Hg]Shania Tulio DO Work Phone: [phone] [place], [place] [address]Hcorxkhwwj10-71-3240 13:52-0400Systolic blood evtnxide566 mm[Hg]Shania Tulio DO Work Phone: [phone] [place], [place] [address]Jbndpmmxjm34-06-1452 15:54-0400Body mass index (BMI) [Ratio]28.24 kg/m2Amy Gigi LALA Work Phone: [phone] [place], [place] [address]Azdnqfdlwh41-86-3113 15:54-0400Body dfnxaf60.62 kgAmy Gigi LALA Work Phone: [phone] [place], [place] [address]Xzfxraczks93-21-3783 15:54-0400Diastolic blood oozewnxn18 mm[Hg]Munira LALA Work Phone: [phone] [place], [place] [address]Swzzmekiwo23-71-9388 15:54-0400Systolic blood udppujsi953 mm[Hg]Munira LALA Work Phone: [phone]-[facility]ty HospitalWmirblsikm72-47-1856 13:34-0400Body mass index (BMI) [Ratio]29.35 kg/p3Isgaw Tulio DO Work Phone: [facility] HospitalNuudryofjd80-49-9330 13:34-0400Body .56 kgCorey Tulio DO Work Phone: [facility] HospitalGdeqekgefh73-75-3334 13:34-0400Diastolic blood tkvxuhwl65 mm[Hg]Shania Tulio DO Work Phone: [facility] HospitalRgeuahnnil55-50-6013 13:34-0400Systolic blood qyxbhcxt788 mm[Hg]Shania Tulio DO Work Phone: [facility] HospitalYhtibobihy95-55-1082 11:07-0400Body .6 cmSfacundo Hernandes MEASUREMENT COORDINATOR Work Phone: [facility] HospitalTjybfhldko37-19-2164 11:07-0400Body mass index (BMI) [Ratio]29.18 kg/p9OuqjolJose Antonio Hernandes MEASUREMENT COORDINATOR Work Phone: [facility] HospitalIeilwhjjzd87-85-2873 11:07-0400Body nyldbk07.11 kgShgaye Hernandes MEASUREMENT COORDINATOR Work Phone: [facility] HospitalXartispddt88-73-8565 11:07-0400Diastolic blood ceotobru44 mm[Hg]Jose Antonio Hernandes MEASUREMENT COORDINATOR Work Phone: [facility] HospitalStoxfsdhhm85-88-5386 11:07-0400Heart rate79 /min Jose Antonio Hernandes MEASUREMENT COORDINATOR Work Phone: [facility] HospitalZrniknglze42-99-8681 11:07-0400Respiratory rate16 /minSfacundo Hernandes MEASUREMENT COORDINATOR Work Phone: [facility] HospitalOjpisaosem16-22-0341 11:07-3106HcN7% (BldA) [Mass fraction]98 %Jose Antonio Hernandes MEASUREMENT COORDINATOR Work Phone: [facility] HospitalYzrvvnggzc11-30-4973 11:07-0400Systolic blood qhvipaum057 mm[Hg]Jose Antonio Hernandes MEASUREMENT COORDINATOR Work Phone: [facility] HospitalOjsyluorep16-11-8635 13:36-0500Body mass index (BMI) [Ratio]32.58 kg/e7Bwcmb Tulio DO Work Phone: [facility] HospitalEldtmyogjt51-06-0701 13:36-0500Body btyktz14.09 kgCorey Tulio DO Work Phone: [facility]OSaint [facility] HospitalTumevresqj86-91-6399 13:36-0500Diastolic blood eplbrqfg05 mm[Hg]Shania Tulio DO Work Phone: NOSaint [facility] HospitalWtzvuxjthx33-18-9264 13:36-0500Systolic blood pufqddaj654 mm[Hg]Shania Tulio DO Work Phone: [facility] Encounters Encounter DateEncounter TypeCare ProviderFacilityStart: 09-07-2025 End: 62-12-7029Ayjoiywwu Result EncounterKristina Ishan MEASUREMENT COORDINATOR Work Phone: [facility] External Department UnsolicitedStart: 09-07-2025 End: 95-34-5309Ceifxmend Result EncounterKristina Ishan MEASUREMENT COORDINATOR Work Phone: [facility] External Department UnsolicitedStart: 08-27-2025 End: 88-03-3500Sltsenswb Result EncounterKristina Ishan MEASUREMENT COORDINATOR Work Phone: [facility] External Department UnsolicitedStart: 08-27-2025 End: 04-30-7288Ttobdavfu Result EncounterKristina Ishan MEASUREMENT COORDINATOR Work Phone: [facility] External Department UnsolicitedStart: 08-26-2025 End: 48-45-7739Zetikhuvo Result EncounterKristina Ishan MEASUREMENT COORDINATOR Work Phone: [facility] External Department UnsolicitedStart: 08-26-2025 End: 15-56-6275Vgribevky Result EncounterKristina Ishan MEASUREMENT COORDINATOR Work Phone: [facility] External Department UnsolicitedStart: 08-25-2025 End: 22-09-1362aassdyzfynNJG RAMEYNot AvailableStart: 08-25-2025 End: 63-31-3876Jwgdwc outpatient visit 15 minutesMunira LALA Work Phone: [facility] OBGYNComment on above:Urinary tract infection without hematuria, site unspecified (Primary Dx); Third trimester ([facility]); 32 weeks gestation of ([facility])Start: 08-25-2025 End: 61-77-2532Jlmhbj Lela LALA Work Phone: [facility] OBGYNStart: 08-25-2025 End: 88-55-3060Jeomxa Lela LALA Work Phone: [facility] OBGYNStart: 08-22-2025 End: 30-31-6100Jwdbwuvme Result EncounterCorey Tulio DO Work Phone: [facility] External Department UnsolicitedStart: 08-22-2025 End: 04-63-4570Bftpmdjqr Result EncounterCorey Tulio DO Work Phone: NOCP External Department UnsolicitedStart: 08-19-2025 End: 42-33-1411Hokegdcuy Result EncounterCorey Tulio DO Work Phone: NOKP External Department UnsolicitedStart: 08-19-2025 End: 01-39-0185Refuliexb Result EncounterCorey Tulio DO Work Phone: [facility] External Department UnsolicitedStart: 08-11-2025 End: 68-84-1219Gjyizk outpatient visit 15 minutesMunira LALA Work Phone: [facility] OBGYNComment on above:Third trimester ([facility]); 30 weeks gestation of ([facility])Start: 08-11-2025 End: 03-21-7911ksijfbvpmqQCN RAMEYNot AvailableStart: 07-27-2025 End: 99-39-2442Azvewr Quinn Olmstead NP Work Phone: [facility] OBGYNStart: 07-27-2025 End: 54-78-5875Egwjpf Quinn Olmstead NP Work Phone: [facility] OBGYNStart: 07-27-2025 End: 36-08-5018qedlcbjdhtXHMFCQRO EBERLYNot AvailableStart: 07-27-2025 End: 10-93-2352Hooygl outpatient visit 15 minutesDarlene Olmstead MEASUREMENT COORDINATOR Work Phone: [facility] Deino OBGYNComment on above:Anemia, unspecified type (Primary Dx); 28 weeks gestation of ([facility]); Third trimester ([facility]); Elevated glucose tolerance testStart: 07-25-2025 End: 58-54-3606Dpxxglemu Result EncounterGeneric External Data ProviderNOMS External Department UnsolicitedStart: 07-25-2025 End: 08-25-6533Teiivpcsr Result EncounterGeneric External Data ProviderNOMS External Department UnsolicitedStart: 07-13-2025 End: 38-13-1682Kiovgd outpatient visit 15 minutesCorey Tulio DO Work Phone: [facility] OBGYNComment on above:Cystitis (Primary Dx); 26 weeks gestation of ([facility]); Second trimester ([facility]); Gastroesophageal reflux in ([facility])Start: 07-13-2025 End: 38-77-9803kznddvgxefEJMVH FAZIONot AvailableStart: 07-13-2025 End: 11-47-1005Srdwhs flowsheetCorey Tulio DO Work Phone: [facility] OBGYNStart: 07-13-2025 End: 33-87-9484Ojjkrr flowsheetCorey Tulio DO Work Phone: [facility] OBGYNStart: 06-15-2025 End: 28-18-2945Rrqreg flowsheetCorey Tulio DO Work Phone: [facility] OBGYNStart: 06-15-2025 End: 61-09-0964Lhhquf flowsheetCorey Tulio DO Work Phone: [facility] OBGYNStart: 06-15-2025 End: 20-87-2769Zelvgs outpatient visit 15 minutesCorey Tulio DO Work Phone: [facility] OBGYNComment on above:22 weeks gestation of ([facility]); Second trimester ([facility]); Diabetes mellitus screeningStart: 06-15-2025 End: 88-94-2332mzohdtxeazJTUEG FAZIONot AvailableStart: 05-31-2025 End: 90-51-0561gkfnzdahtxJVG RAMEYNot AvailableStart: 05-18-2025 End: 65-67-8106Gonowi outpatient visit 15 minutesMunira LALA Work Phone: [facility] RONI OBComment on above:Screening, , for anatomic survey ([facility]); STD exposure; Vaginal discharge; Second trimester ([facility]); 18 weeks gestation of ([facility])Start: 05-18-2025 End: 35-70-4285wulwcvruqnTCN RAMEYNot AvailableStart: 05-18-2025 End: 91-29-8241Ornpsx flowsJames LALA Work Phone: [facility] BCP OBStart: 05-18-2025 End: 90-11-7821Dtphfg flowsheetMunira LALA Work Phone: [facility] BCP OBStart: 05-18-2025 End: 79-15-5485Ilqthlpc Result EncounterMunira LALA Work Phone: [facility] External Department UnsolicitedStart: 04-06-2025 End: 58-65-0056Rbuonp flowsheetCorey Tulio DO Work Phone: [facility] BCP OBStart: 04-06-2025 End: 47-38-3096Krztau flowsheetCorey Tulio DO Work Phone: [facility] BCP OBStart: 04-06-2025 End: 82-94-4157Dfbary outpatient visit 15 minutesCorey Tulio DO Work Phone: [facility] BCP OBComment on above:First trimester ; 12 weeks gestation of ; Urinary tract infection without hematuria, site unspecified; Other iron deficiency anemiaStart: 04-06-2025 End: 77-62-0439zexwswlnaoNNHKH FAZIONot AvailableStart: 04-05-2025 End: 00-77-2427Hvwzni Heide Hernandes MEASUREMENT COORDINATOR Work Phone: [facility] CI FMStart: 04-05-2025 End: 32-83-3876Dvwmly flowsИрина Hernandes MEASUREMENT COORDINATOR Work Phone: [facility] CI FMStart: 04-05-2025 End: 29-50-8838Hehoft outpatient visit 25 minutesShgaye Hernandes MEASUREMENT COORDINATOR Work Phone: NOM[facility] CI FMComment on above:Jaw pain (Primary Dx); Major depressive disorder, single episode, 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) (CMS/HCC); Otalgia of both earsStart: 04-05-2025 End: 18-24-5438mklkqogpfhFCKQHA M SHIVELYNot AvailableStart: 04-01-2025 End: 02-25-9853Erhzgzigi Result EncounterGeneric External Data ProviderNOMS External Department UnsolicitedStart: 04-01-2025 End: 55-09-2461Zcupzxwhw Result EncounterGeneric External Data ProviderNOMS External Department UnsolicitedStart: 03-10-2025 End: 71-47-1779wepoknpfasKSXNRJ SHIVELYNot AvailableStart: 03-10-2025 End: 87-94-2418Dwthiy outpatient visit 5 minutesNoms Bcp Ob Tulio NurseNOMS BCP OBComment on above:GA: 5v4fLjpxn: 03-10-2025 End: 64-61-4339ehpwrwratzFRNWJH SHIVELYNot AvailableStart: 09-07-2024 End: 81-13-2562Xkakzg flowsheetCorey Tulio DO Work Phone: [facility] BCP OBStart: 09-07-2024 End: 23-94-7662Pusgdh flowsheetCorey Tulio DO Work Phone: [facility] BCP OBStart: 09-07-2024 End: 62-48-4649Ghcrzn outpatient visit 15 minutesCorey Tulio DO Work Phone: N[facility] BCP OBComment on above:PCOS (polycystic ovarian syndrome); Hormone imbalance; Pelvic pain in female; Pain in female genitalia on intercourseStart: 09-07-2024 End: 09-39-2152vjcoagjnzbHETUD FAZIONot AvailableStart: 06-15-2024 End: 74-68-8556Fflzvgaxa Result EncounterGeneric External Data ProviderNOMS External Department UnsolicitedStart: 06-15-2024 End: 76-17-9406Jrzdhdaze Result EncounterGeneric External Data ProviderNOMS External Department UnsolicitedStart: 01-02-2022 End: 11-34-8496vsnlhxmunmUS HEAVENLY CHAPARROFacility:O1Ncinj: 10-12-2021 End: 40-27-2223camnnvgjxqKB HEAVENLY CHAPARROFacility:R5Leles: 05-05-2021 End: 25-16-0437jbnrtloftlOS ELIANA ALDAFacility:H1 Procedures DateProcedureProcedure DetailPerforming ClinicianStart: 03-53-8396GCC FERRITIN Darelne Olmstead MEASUREMENT COORDINATOR Work Phone: Start: 06-04-1519GMW HEMOGLOBIN Y6TOdzmkukgDarlene Olmstead MEASUREMENT COORDINATOR Work Phone: Start: 69-90-1949KGZ CBC WITH AUTO DIFFAngelinaa Ishan MEASUREMENT COORDINATOR Work Phone: Start: 39-12-6814Lmrji dip stick/tablet rgnt non-auto w/o micrscpKrricha Ishan MEASUREMENT COORDINATOR Work Phone: Start: 64-62-0867POESINH TOLERANCE 3 HOURCorey Tulio DO Work Phone: Start: 98-18-6767XTL UA (CLEAN/CATCH) DOOR PULLER/MICRO IF IND.Shania Tulio DO Work Phone: Start: 77-67-2559Kyeob dip stick/tablet rgnt non-auto w/o micrscpAmy Gigi LALA Work Phone: Start: 33-43-8493Xpjes dip stick/tablet rgnt non-auto w/o micrscpKristina Ishan MEASUREMENT COORDINATOR Work Phone: start: 81-60-0163ARH CBC WITH AUTO DIFFCorey Tulio DO Work Phone: Start: 37-78-6891Rbavt dip stick/tablet rgnt non-auto w/o micrscpCorey Tulio DO Work Phone: Start: 80-71-7158Uvfqc dip stick/tablet rgnt non-auto w/o micrscpCorey Tulio DO Work Phone: Start: 97-18-2272TTZCPUIWQ VAGINITIS (HTRX)Munira LALA Work Phone: Start: 98-12-1942Inqcp dip stick/tablet rgnt non-auto w/o micrscpAmy Gigi LALA Work Phone: Start: 86-03-2401Epcfq dip stick/tablet rgnt non-auto w/o micrscpCorey Tulio DO Work Phone: Start: 40-95-1578CUC CBC WITH AUTO DIFFCorey Tulio DO Work Phone: Start: 18-83-8682EU PELVIS W/ TRANSVAGINALGeneric External Data ProviderStart: 81-17-6220OUO ANTI-MULLERIAN HORMONECorey Tulio DO Work Phone: Start: 68-85-8122HVV CBC WITH AUTO DIFFCorey Tulio DO Work Phone: Start: 49-12-7967CRP DEHYDROEPIANDROSTERONECorey Tulio DO Work Phone: Start: 48-47-8303QDH DHEA SULFATEGeneric External Data ProviderStart: 92-56-5655PXE FOLLICLE STIMULATING HORMONEGeneric External Data ProviderStart: 67-97-1894MXG LUTEINIZING HORMONEGeneric External Data Provider Plan of Treatment DateCare ActivityDetailAuthorStart: 09-13-2025 End: 39-87-4026Mvomppv encounter hgvhorjon02/18/2025 9:20 AM EST Routine [facility] [address] [place], [id number] Shania Antunez DO [address] [place] [address] NOMKelley [place] OBGYNStart: 08-25-2025 End: 33-31-0658Tovswpg encounter nemwsaour77/30/2025 3:20 PM EDT Routine NOMKelley BACAGYAnat [address] [place], [id number] Munira Garcia PA [address] [place], [place] [id number] NOMKelley [place] OBGYNStart: 07-27-2025 End: 78-03-9905Pwhaaogpoom of glucose 3 hours after glucose challenge for glucose tolerance testGlucose tolerance, 3 hours Lab Routine Elevated glucose tolerance test Expected: 07/27/2025 (Approximate), Expires: 07/27/2026[facility] Work Phone: comment on above:Expected: 07/27/2025 (Approximate), Expires: 07/27/2026Start: 07-27-2025 End: 34-04-2327Basfvky encounter wqohxxvwe19/01/2025 1:50 PM EDT Routine [facility] BACAGYN [address] [place], [id number] Darlene Olmstead, MEASUREMENT COORDINATOR [address] [place] [id number] NOMKelley [place] OBGYNStart: 07-13-2025 End: 79-83-3061Wgqwfvh encounter procedureNOMS Deion OBGYNComment on above: ArrivedStart: 07-13-2025 End: 14-16-5982OD for pregnancyUS OB follow up transabdominal approach Imaging Routine Second trimester ([facility]) Expected: 07/13/2025, Expires: 11/12/2025[facility] Work Phone: comment on above:Expected: 07/13/2025, Expires: 11/12/2025Start: 31-73-5196JBAZR-19 Vaccine ( season)COVID-19 Vaccine ( season)[facility]OMS HealthcareStart: 98-30-7546Otqhfyfhc vaccinationNOMS HealthcareStart: 06-15-2025 End: 59-67-6647RBG panel - Blood by Automated countCBC Lab Routine Diabetes mellitus screening Expected: 06/15/2025 (Approximate), Expires: 06/15/2026[facility] Work Phone: comment on above:Expected: 06/15/2025 (Approximate), Expires: 06/15/2026Start: 06-15-2025 End: 04-82-3628Vabzuzilybg of glucose 1 hour after glucose challenge for glucose tolerance testGlucose tolerance, 1 hour Lab Routine Diabetes mellitus screening Expected: 06/15/2025 (Approximate), Expires: 06/15/2026NOMS HealthcareComment on above:Expected: 06/15/2025 (Approximate), Expires: 06/15/2026Start: 06-15-2025 End: 81-12-4137Wloicyz encounter procedureNOMS BCP OBComment on above:Arrived Start: 05-31-2025 End: 40-58-3588Svgfherrpazn / ancillary services odgxvvotbg72/05/2025 8:30 AM EDT Ancillary Procedure [facility] [address] [place] [address] NOMS BCP OBStart: 05-18-2025 End: 99-93-2980Quhyhoj encounter sasugscxi06/23/2025 3:30 PM EDT Routine [facility] [address] [place] [address] Munira Garcia PA [address] [place] [address] ArrivedNOMS BCP OBComment on above: ArrivedStart: 05-18-2025 End: 94-79-8816Qiirb fetoprotein, maternalAlpha fetoprotein, maternal Lab Routine 18 weeks gestation of ([facility]) Expected: 05/18/2025 (Approximate), Expires: 06/18/2025NOMS HealthcareComment on above:Expected: 05/18/2025 (Approximate), Expires: 06/18/2025Start: 05-18-2025 End: 95-18-7861LH for pregnancyUS OB 14+ weeks anatomy scan Imaging Routine Screening, , for anatomic survey ([facility]) Expected: 05/18/2025, Expires: 08/18/2025NOMS HealthcareComment on above:Expected: 05/18/2025, Expires: 08/18/2025Start: 05-04-2025 End: 13-48-9964Vaabkch encounter htfebndwq17/09/2025 2:30 PM EDT Routine [facility] [address] [place] [address] Munira Garcia PA [address] [place], [place] [id number] N[facility] BCP OBStart: 04-06-2025 End: 92-39-7192Mvbwywe encounter procedureNOMS BCP OBComment on above:Arrived Start: 04-05-2025 End: 78-02-3232Hqswyok encounter procedureNOMS BCP OBComment on above:Arrived Start: 03-10-2025 End: 20-55-0260LTN/RhABO/Rh Lab Routine Missed menses , unspecified gestational age Expected: 03/10/2025 (Approximate), Expires: 03/10/2026NOMS HealthcareComment on above:Expected: 03/10/2025 (Approximate), Expires: 03/10/2026Start: 03-10-2025 End: 66-85-1262Jzdyy type and Indirect antibody screen panel - BloodType and screen Lab Routine Missed menses , unspecified gestational age Expected: 03/10/2025 (Approximate), Expires: 03/10/2026NOMS HealthcareComment on above:Expected: 03/10/2025 (Approximate), Expires: 03/10/2026Start: 03-10-2025 End: 60-80-8541Mdlox of abuse panel - Urine by Screen methodRapid drug screen, urine Lab Routine , unspecified gestational age Encounter for supervision of normal first in first trimester Expected: 03/10/2025 (Approximate), Expires: 03/10/2026[facility] HealthcareComment on above:Expected: 03/10/2025 (Approximate), Expires: 03/10/2026Start: 03-09-2025 End: 92-17-5315OL Pelvis transvaginalUS OB transvaginal Imaging Routine Missed menses Expected: 03/09/2025, Expires: 06/09/2025[facility] Work Phone: comment on above:Expected: 03/09/2025, Expires: 06/09/2025Start: 11-01-2024 End: 00-56-5478Xszitii encounter wjhpaebot57/06/2025 1:20 PM EST Consult [address]OM[address] [place] [address] Shania Antunez, DO [address] [place] [address] [facility] OBStart: 09-07-2024 End: 91-91-9330Tetykfp encounter ubfnzkmes27/12/2024 8:40 AM EST Office Visit NOM[facility] [address] [place] [address] Shania Antunez, DO [address] [place] [address] [facility] OBStart: 65-47-2017Prluyntea vaccination Influenza Vaccine (#1)NOM HealthcareStart: 46-19-7069Hoqtrathq B Vaccines (1 of 3 - 19+ 3-dose series)Hepatitis B Vaccines (1 of 3 - 19+ 3-dose series)NOM HealthcareStart: 74-45-8755Jyswsjfryell Vaccine: Pediatrics (0 to 5 Years) and At-Risk Patients (6 to 64 Years) (1 of 2 - PCV)Pneumococcal Vaccine: Pediatrics (0 to 5 Years) and At-Risk Patients (6 to 64 Years) (1 of 2 - PCV)NOM HealthcareStart: 60-72-3318Xalzaxdhipeja B Vaccine (1 of 2 - Standard) Meningococcal B Vaccine (1 of 2 - Standard)NOM HealthcareStart: 96-02-9013VLP Vaccines (1 - 3-dose series)HPV Vaccines (1 - 3-dose series)[facility] Start: 22-22-1999Uupauaj of varicella vaccinationVaricella Vaccines (1 of 2 - 13+ 2-dose series)NOM HealthcareStart: 18-38-0640IXvT/Tdap/Td Vaccines (1 - Tdap)DTaP/Tdap/Td Vaccines (1 - Tdap)NOM HealthcareStart: 52-60-0443JBV Vaccines (1 of 1 - Standard series)MMR Vaccines (1 of 1 - Standard series)[facility]Bacteria identified in Urine by CultureUrine culture Microbiology Routine Missed menses Ordered: 03/10/2025[facility] HealthcareComment on above: Ordered: 03/10/2025acteria identified in Urine by CultureUrine culture Microbiology Routine Cystitis Ordered: 07/13/2025[facility] HealthcareComment on above:Ordered: 07/13/2025BC W Auto Differential panel - BloodCBC and differential Lab Routine Missed menses , unspecified gestational age Ordered: 03/10/2025[facility] HealthcareComment on above:Ordered: 03/10/2025BC W Auto Differential panel - BloodCBC and differential Lab Routine 32 weeks gestation of ([facility]) Ordered: 08/25/2025[facility] Work Phone: comment on above:Ordered: 08/25/2025HLAMYDIA TRACHOMATIS (GENITO/STI)CHLAMYDIA TRACHOMATIS (GENITO/STI) Lab Routine Vaginal discharge Ordered: 05/18/2025[facility] HealthcareComment on above:Ordered: 05/18/2025 Hemoglobin A1c/Hemoglobin.total in BloodHemoglobin A1c Lab Routine Missed menses , unspecified gestational age Ordered: 03/10/2025[facility] Healthcare Comment on above:Ordered: 03/10/2025Hepatitis B virus surface Ag [Presence] in Serum or Plasma by ImmunoassayHepatitis B surface antigen Lab Routine Missed menses , unspecified gestational age Ordered: 03/10/2025[facility] Healthcare Comment on above:Ordered: 03/10/2025Hepatitis C virus Ab [Presence] in Serum or Plasma by ImmunoassayHepatitis C antibody Lab Routine Missed menses , unspecified gestational age Ordered: 03/10/2025[facility] HealthcareComment on above: Ordered: 03/10/2025HIV-1/HIV-2 antigen/antibody combination immunoassayHIV-1 and HIV-2 antibodies Lab Routine Missed menses , unspecified gestational age Ordered: 03/10/2025[facility] HealthcareComment on above:Ordered: 03/10/2025 Neisseria gonorrhoeae DNA [Presence] in Unspecified specimen by STEVO with probe detectionNeisseria gonorrhea DNA probe, direct Lab Routine Vaginal discharge Ordered: 05/18/2025[facility] HealthcareComment on above:Ordered: 05/18/2025 ProgesteroneProgesterone Lab Routine Hormone imbalance Ordered: 09/07/2024[facility] Work Phone: comment on above:Ordered: 09/07/2024eagin Ab [Presence] in Serum by RPRRPR Lab Routine Missed menses , unspecified gestational age Ordered: 03/10/2025[facility] HealthcareComment on above:Ordered: 03/10/2025Rubella antibody, IgGRubella antibody, IgG Lab Routine Missed menses , unspecified gestational age Ordered: 03/10/2025[facility] HealthcareComment on above:Ordered: 03/10/2025SURESWAB(R) ADVANCED VAGINITIS PLUS, TMASURESWAB(R) ADVANCED VAGINITIS PLUS, TMA Pathology and Cytology Routine Vaginal discharge Ordered: 05/18/2025[facility] Work Phone: comment on above:Ordered: 05/18/2025US Pelvis transvaginalUS OB transvaginal Imaging Routine Missed menses 03/10/2025 2:28 PM [facility] Healthcare Payers DatePayer CategoryPayerPolicy [id number] [id number] 2023Medicaid (Managed Care) [id number] [id number] 2.16.840.1.848079.3.57[id number] 2.16.840.1.314032.3.57[id number] 2.16.840.1.262480.3.57[id number] 2.16.840.1.445747.3.57[id number] 2.16.840.1.668291.3.57[id number] 2.16.840.1.394854.3.57[id number] 2.16.840.1.787460.3.57[id number] 2.16.840.1.370026.3.57[id number] 2.16.840.1.097259.3.57[id number] 2.16.840.1.273108.3.57[id number] 2.16.840.1.105137.3.57[id number] 2.16.840.1.648441.3.57[id number] 2.16.840.1.742247.3.57[id number] 2.16.840.1.235060.3.57[id number] 2.16.840.1.756043.3.57[id number] 2.16.840.1.450140.3.57[id number] Social History DateTypeDetailFacilityStart: 12-30-2023 End: 23-96-6588Kgerhnj smoking status NHISNever smoked tobaccoNOAZ Healthcare Start: 12-30-2023 End: 03-46-6741Ymxhrmi of Social functionNOAZ HealthcareStart: 12-30-2023 End: 91-39-3092Awraqol use panelNOAZ HealthcareStart: 44-25-7063Ywr assigned at birthNot on fileNOAZ HealthcareStart: 92-23-8600IycvvzzmxUQJI HealthcareStart: 56-08-9054Njwmxzh use and exposureSmokeless tobacco non-userNOAZ [facility] Start: 04-05-2025 End: 84-59-0489Igkgguwen beverage intakeLifetime non-drinker (finding)[facility] HealthcareStart: 31-79-3757TfjXlriwwOPKS HealthcareNEGATED: Highlighted row Start: NINFHistory of tobacco usePassive smokerNOAZ [facility] Functional Status JptvFnzssksibtUmghuiXaaojcrq98-80-5761Vdyrlrl Health Questionnaire 2 item (PHQ- 2) [Reported][facility] Clinical Notes 09-07-2024 to 08-25-2025 Note Date & JpnmNlycVhmiahjg28-01-0051 History of Present illness Narrative* Darlene Olmstead [...] 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 Exam conducted with a single wire saw operator present. Vitals: Estimated body mass index is 28.97 kg/m as calculated from the following: Height as of 25: 5' 4 . Weight as of this encounter: 168 lb 12.8 oz. BP: 118/60 Patient's last menstrual period was 01/07/2025. Assessment/Plan ICD-10-CM 1. Third trimester ([facility]) Z34.93 2. 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 Third trimester ([facility]) Z34.93 POCT urinalysis dipstick manually resulted 2. 30 weeks gestation of ([facility]) Z3A.30 Return OB: Patient presents today for [...] surgical history on file. documented in this encounterLiberty HospitalMnnvdynjkx32-62-9473 History of Present illness Narrative* Darlene Olmstead [...] nursing note reviewed. Exam conducted with a single wire saw operator present. Vitals: Estimated body mass index is 28.84 kg/m as calculated from the following: Height as of 04/05/25: 5' 4 . Weight as of this encounter: 168 lb. BP: 112/70 Patient's last menstrual period was 01/07/2025. ASSESSMENT & PLAN ICD-10-CM 1. Anemia, unspecified type D64.9 iron polysaccharides (ProFe) 391.3 (180 Fe) MG capsule 2. 28 weeks gestation of ([facility]) Z3A.28 POCT urinalysis dipstick manually resulted 3. Third trimester ([facility]) Z34.93 4. Elevated glucose tolerance test R73.09 [...] of: Darlene Olmstead NP documented in this encounterLiberty HospitalMrxzdisyix28-08-3081 History of Present illness Narrative* Darlene Olmstead [...] nursing note reviewed. Exam conducted with a single wire saw operator present. Vitals: Estimated body mass index is 28.69 kg/m as calculated from the following: Height as of 04/05/25: 5' 4 . Weight as of this encounter: 167 lb 1.9 oz. BP: 120/68 Patient's last menstrual period was 01/07/2025. ASSESSMENT & PLAN ICD-10-CM 1. Cystitis N30.90 nitrofurantoin, macrocrystal-monohydrate, (Macrobid) 100 MG capsule Urine culture 2. 26 weeks gestation of ([facility]) Z3A.26 POCT urinalysis dipstick manually resulted 3. Second trimester ([facility]) Z34.92 POCT urinalysis dipstick manually resulted US OB follow up transabdominal approach 4. Gastroesophageal reflux in ([facility]) O99.619 omeprazole (PriLOSEC) [address] capsule [...] of: Shania Antunez DO documented in this encounterLiberty HospitalLlmnslxsmg53-03-2946 History of Present illness Narrative* SPIKE Guzman [...] PLAN ICD-10-CM 1. 22 weeks gestation of ([facility]) Z3A.22 POCT urinalysis dipstick manually resulted 2. Second trimester ([facility]) Z34.92 POCT urinalysis dipstick manually resulted 3. [...] of: Shania Antunez DO documented in this encounterLiberty HospitalTprjnnueyz66-84-0963 History of Present illness Narrative* SPIKE Guzman [...] ICD-10-CM 1. Screening, , for anatomic survey ([facility]) Z36.89 US OB 14+ weeks anatomy scan US OB 14+ weeks anatomy scan 2. STD exposure Z20.2 3. Vaginal discharge N89.8 SURESWAB(R) ADVANCED VAGINITIS PLUS, TMA CHLAMYDIA TRACHOMATIS (GENITO/STI) Neisseria gonorrhea DNA probe, direct 4. Second trimester ([facility]) Z34.92 5. 18 weeks gestation of ([facility]) Z3A.18 POCT urinalysis dipstick manually resulted Alpha [...] behalf of: SPIKE Guzman documented in this encounterLiberty HospitalEkbqtpzypr99-26-8103 History of Present illness Narrative* Shania Antunez [...] nursing note reviewed. Exam conducted with a single wire saw operator present. Vitals: Estimated body mass index [...] of: Shania Antunez DO documented in this encounterLiberty HospitalGcuqsodeav13-88-1719 History of Present illness Narrative* Jose Antonio [...] your allergy medication. You reported that the SENIOR ECONOMIST said you could take zyrtec for your allergies. Continue on this medication. The medication should help with the fluid in the inner ear. No follow-ups on file. 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 Exam conducted with a single wire saw operator present. Vitals: Estimated body mass index [...] Screening, , for anatomic survey ([facility]) Encounter for anatomic survey STD exposure Vaginal discharge Leukorrhea, not specified as infective Second trimester ([facility]) state, incidental 18 weeks gestation of ([facility]) documented in this encounter [facility] HealthcareEvaluation note* Diagnosis 22 weeks gestation of ([facility]) Second trimester ([facility]) state, incidental Diabetes mellitus screening Screening for diabetes mellitus documented in this encounter [facility] HealthcareEvaluation note* Diagnosis Cystitis- Primary Unspecified cystitis 26 weeks gestation of ([facility]) Second trimester ([facility]) state, incidental Gastroesophageal reflux in ([facility]) documented in this encounter [facility] HealthcareEvaluation note* Diagnosis Anemia, unspecified type- Primary 28 weeks gestation of ([facility]) Third trimester ([facility]) state, incidental Elevated glucose tolerance test Impaired glucose tolerance test documented in this encounter [facility] HealthcareEvaluation note* Diagnosis Third trimester ([facility]) state, incidental 30 weeks gestation of ([facility]) documented in this encounter [facility] HealthcareEvaluation note* Diagnosis Urinary tract infection without hematuria, site unspecified- Primary Third trimester ([facility]) state, incidental 32 weeks gestation of ([facility]) documented in this encounter [facility] Summary Purpose Family History No Family History Records FoundNo Family History Records Found Advance Directives No Advanced Directives Records FoundNo Advanced Directives Records Found Additional Source Comments INFORMATION SOURCE (unrecogn ized section and content) DATE CREATED AUTHOR 01/04/2022 [facility] DATE CREATED AUTHOR AUTHOR'S ORGANIZ ATION 08/27/2025 [facility] EPIC Care Teams (unrecognized sec tion and content) Team MemberRelationshipSpecialtyStart DateEnd Date Eliana Marquis MD [address] [facility] [address] [place] [address] [facility] - [facility]23 Jose Antonio Hernandes NP [address] [facility] [address] [place] [address] PCP - [facility]07/27/24Team MemberRelationshipSpecialtyStart DateEnd Date Eliana Marquis MD [address] [place] [address] PCP - [facility]03/04/23 Jose Antonio Hernandes, MEASUREMENT COORDINATOR [address] [place] [address] [facility]07/27/24Team MemberRelationshipSpecialtyStart DateEnd Date Eliana Marquis MD [address] [place] [address] [facility]03/04/23Te MemberRelationshipSpecialtyStart DateEnd Date Eliana Marquis MD [address] [place] [address] [facility]03/04/23 Jose Antonio Hernandes, MEASUREMENT COORDINATOR [address] [place] [address] [facility]07/27/24Team MemberRelationshipSpecialtyStart DateEnd Date Eliana Marquis MD [address] [place] [address] [facility]03/04/23 Jose Antonio Hernandes, MEASUREMENT COORDINATOR [address] [place] [address] [facility]07/27/24Team MemberRelationshipSpecialtyStart DateEnd Date Eliana Marquis MD [address] [place] [address] [facility]03/04/23 Jose Antonio Hernandes, MEASUREMENT COORDINATOR [address] [place] [address] [facility]07/27/24Team MemberRelationshipSpecialtyStart DateEnd Date Eliana Marquis MD [address] [place] [address] [facility]03/04/23 Jose Antonio Hernandes, MEASUREMENT COORDINATOR [address] [place] [address] [facility]07/27/24Team MemberRelationshipSpecialtyStart DateEnd Date Eliana Marquis MD [address] [place] [address] [facility]03/04/23 Jose Antonio Hernandes, MEASUREMENT COORDINATOR [address] [place] [address] [facility]07/27/24Team MemberRelationshipSpecialtyStart DateEnd Date Eliana Marquis MD [address] [place] [address] [facility]03/04/23 Jose Antonio Hernandes, MEASUREMENT COORDINATOR [address] [place] [address] [facility]07/27/24Team MemberRelationshipSpecialtyStart DateEnd Date Eliaan Marquis MD [address] [place] [address] PCP - GeneralFamily Medicine03/04/23Team MemberRelationshipSpecialtyStart DateEnd Date Eliana Marquis MD [address] [place] [address] PCP - GeneralFamily Medicine03/04/23Team MemberRelationshipSpecialtyStart DateEnd Date Eliana Marquis MD [address] [place] [address] PCP - GeneralFamily Medicine03/04/23Team MemberRelationshipSpecialtyStart DateEnd Date Eliana Marquis MD [address] [place] [address] PCP - GeneralFamily Medicine03/04/23Team MemberRelationshipSpecialtyStart DateEnd Date Eliana Marquis MD [address] [place] [address] PCP - GeneralFamily Medicine03/04/23Team MemberRelationshipSpecialtyStart DateEnd Date Eliana Marquis MD [address] [place] [address] PCP - GeneralFamily Medicine03/04/23Team MemberRelationshipSpecialtyStart DateEnd Date Eliana Marquis MD [address] [place] [address] PCP - GeneralFamily Medicine03/04/23Team MemberRelationshipSpecialtyStart DateEnd Date Eliana Marquis MD [address] [place] [address] PCP - GeneralFamily Medicine03/04/23Team MemberRelationshipSpecialtyStart DateEnd Date Eliana Marquis MD [address] [email or web address] [address] [place] [address] PCP - GeneralFamily Medicine03/04/23 Jose Antonio Hernandes NP [address] [facility] [[email or web address]] [address] [place] [address] PCP - [facility]//Team MemberRelationshipSpecialtyStart DateEnd Date Eliana Marquis MD [address] [facility] [[email or web address]] [address] [place] [address] [facility]03/04/23Team MemberRelationshipSpecialtyStart DateEnd Date Eliana Marquis MD [address] [facility] [[email or web address] [address] [place] [address] [facility]03/04/23Team MemberRelationshipSpecialtyStart DateEnd Date Eliana Marquis MD [address] [facility] [[email or web address]] [address] [place] [address] [facility]03/04/23Team MemberRelationshipSpecialtyStart DateEnd Date Eliana Marquis MD [address] [facility] [[email or web address] [address] [place] [address] PCP - [facility]03/04/23 Reason for Visit [...] BE BASED ON THE PRIMARY CLINICAL RECORDS. [facility] [employer] [facility]. provides no warranty or guarantee of the accuracy or completeness of information in this document.
[2025-10-04 11:42] VITALS: BP 108/55; PULSE 78
== END 2025-10-04 12:06 | disposition home or self-care (01) ==
LOC: FBCO 11:36 → FBC 11:37
PROVIDERS: PCP Family Medicine; Visit Provider Obstetrics & Gynecology
DX: O26.893 Other specified pregnancy related conditions, third trimester (principal); Z3A.38 38 weeks gestation of pregnancy
CPT/HCPCS: 59025

== ENCOUNTER 2025-10-06 15:21 | Outpatient (OUT) | payer OTHER, SELFPAY ==
--- OUTSIDE RECORDS SUMMARY | 2025-10-06 15:30 | XMS_ITS | CCD ---
Author Organization [facility] CliniSymt Care Team Providers Care Hoop Maker Machine Name Role Phone BENITEZ, DR MUNOZ Primary [...] Eliana Marquis MD Primary Care Provider Cecilio ROLL SHEETING CUTTER, Jose Antonio Neri Unavailable Cecilio ROLL SHEETING CUTTER, Jose Antonio Neri Unavailable JOSE ANTONIO HERNANDES Attending Unavailable SHANIA ANTUNEZ Attending Unavailable MUNIRA GARCIA Attending Unavailable MUNIRA GARCIA Referring Unavailable SHANIA ANTUNEZ Attending Unavailable SHANIA ANTUNEZ Attending Unavailable SHANIA ANTUNEZ Attending Unavailable DARLENE OLMSTEAD Attending Unavailable DARLENE OLMSTEAD Referring Unavailable MUNIRA GARCIA Attending Unavailable MUNIRA GARCIA Attending Unavailable Allergies Allergy ClassificationReported Allergen(s)Allergy TypeDate of OnsetReaction(s) Facility (1 source)PenicillinsDrug allergy (disorder)57-45-5698[facility] Repository (20 sources)PenicillinsDrug Zrtrrnp31-96-3356TjliapxFVWY [facility] Medications Current Medications MedicationDrug Class(es)DatesSig (Normalized)Sig (Original)[id number] 200 actuat albuterol 0.09 mg/actuat metered dose inhaler (9 sources)beta2-Adrenergic Agonist End: 15-79-5762tohr 2 puff(s) by inhalation every four hours for wheezing albuterol HFA (ProAir HFA) 90 mcg/act inhaler Inhale 2 puffs every 4 (four) hours if needed for wheezing or shortness of breath 04/05/2025 Discontinued (Other)cephalexin 500 mg oral capsule (4 sources)Cephalosporin AntibacterialStart: 08-25-2025 End: 24-05-1299fezn 1 capsule by mouth in the morning, [...] oral tablet (9 sources)Histamine-1 Receptor Antagonist End: 20-25-1714qaix 1 tablet by mouth once dailyfexofenadine ([facility] Allergy Relief) 180 MG tablet Take 180 mg by mouth Daily 04/05/2025 Discontinued (Other) magnesium oxide 400 mg oral tablet (5 sources)Start: 03-10-2025 End: 99-13-4224khci 1 tablet by mouth once dailymagnesium oxide (Mag-Ox) 400 MG tablet Indications: headache in first trimester Take 1 tablet (400 mg) by mouth Daily 30 tablet 11 03/10/2025 04/05/2025 Discontinued (Other) nitrofurantoin, macrocrystals 25 mg / nitrofurantoin, monohydrate 75 mg oral capsule (5 sources)Nitrofuran AntibacterialStart: 07-13-2025 End: 59-33-2512awgy 1 capsule by mouth in the morningnitrofurantoin, macrocrystal-monohydrate, (Macrobid) 100 MG capsule Indications: Cystitis Take 1 capsule (100 mg) by mouth in the morning and 1 capsule (100 mg) before bedtime. Do all this for 7 days. 14 capsule 07/13/2025 07/20/2025 ActiveStart: 04-06-2025 End: 77-89-8133eojj 1 capsule by mouth in the morningnitrofurantoin, macrocrystal-monohydrate, (Macrobid) 100 MG capsule Indications: Urinary tract infection without hematuria, site unspecified Take 1 capsule (100 mg) by mouth in the morning and 1 capsule (100 mg) before bedtime. Do all this for 7 days. 14 capsule 04/06/2025 04/13/2025 ActiveStart: 03-10-2025 End: 71-98-9048hfok 1 capsule by mouth in the morningnitrofurantoin, macrocrystal-monohydrate, (Macrobid) 100 MG capsule Indications: UTI symptoms Take 1 capsule (100 mg) by mouth in the morning and 1 capsule (100 mg) before bedtime. Do all this for 7 days. 14 capsule 03/10/2025 03/17/2025 Active omeprazole 20 mg delayed release oral capsule (16 sources)Proton Pump InhibitorStart: 07-13-2025 End: 41-67-7552yhpg 1 capsule by mouth before mealtimeomeprazole (PriLOSEC) [address] capsule Indications: Gastroesophageal Reflux Disease , Heartburn Take 1 capsule (20 mg) by mouth in the morning. Take before meals. Do not crush or chew. 30 capsule 3 07/13/2025 Activeondansetron 4 mg disintegrating oral tablet (8 sources)Serotonin-3 Receptor AntagonistStart: 03-10-2025 End: 34-08-7379swzt 1 tablet by mouth every six hours for nauseaondansetron ODT (Zofran-ODT) 4 MG disintegrating tablet Indications: Nausea and vomiting in Take 1 tablet (4 mg) by mouth every 6 (six) hours if needed for nausea or vomiting 30 tablet 2 03/10/2025 04/09/2025 Activepolysaccharide iron complex 391 mg oral capsule (12 sources)Start: 07-27-2025 End: 62-45-2553zfhw 1 capsule by mouth once dailyiron polysaccharides (ProFe) 391.3 (180 Fe) MG capsule Indications: Anemia, unspecified type Take 1capsule (391.3 mg) by mouth Daily 30 capsule 6 07/27/2025 08/26/2025 ActiveStart: 04-06-2025 End: 10-01-4654rfqy 1 capsule by mouth once dailyiron polysaccharides [...] capsule (5 sources)Serotonin Reuptake InhibitorStart: 11-18-2022 End: 78-50-5113woqb 1 capsule by mouth once dailyFLUoxetine (PROzac) 10 MG capsule Take 1 capsule by mouth 1 (one) time each day at the same time 03/10/2025 Discontinued (Other)fluticasone propionate 0.05 mg/actuat metered dose nasal spray (5 sources)Corticosteroid End: 28-67-3737pqgz 1 spray(s) nasal route once dailyfluticasone (Flonase) 50 MCG/ACT nasal spray Administer 1 spray into each nostril 1 (one) time eachday at the same time 03/10/2025 Discontinued (Other)24 hr metFORMIN hydrochloride 500 mg extended release oral tablet (5 sources)BiguanideStart: 06-07-2024 End: 29-78-1863wjuj 1 tablet by mouth every twenty-four hours at mealtime metFORMIN XR (Glucophage-XR) 500 MG 24 hr tablet Indications: PCOS (polycystic ovarian syndrome) Take 1 tablet (500 mg) by mouth in the evening. Take with meals Do not crush, chew, or split. 30 tablet 11 06/07/2024 03/10/2025 Discontinued (Other) Problems Problem ClassificationProblemDateDocumented DateEpisodic/ChronicAbdominal pain (10 sources)Pelvic and perineal pain; Translations: [Unspecified abdominal pain] Onset: 83-57-0919UwabhmmuRtlhhf (20 sources)Exercise-induced asthma; Translations: [Exercise induced bronchospasm]Onset: 933871-22-7287XhztqfrChcpbfpbjp and other anemia (2 sources)Iron deficiency anemia; Translations: [Other iron deficiency anemias] 58-40-2610UhppwlfuCgklkzffqj and other anemia (2 sources)Anemia; Translations: [Anemia, unspecified]37-36-9913RhrhhdwvKpqxuomg mellitus without complication (2 sources)Abnormal glucose tolerance test; Translations: [Other abnormal glucose]22-56-0218WymqhjhmXbbfsazvq of teeth and jaw (2 sources)Jaw pain; Translations: [Jaw pain]87-66-0996CpvvwukrDtqnjrlesfleg congenital anomalies (1 source)Bicornate uterus; 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]Onset: 10-18-2021 ChronicGenitourinary symptoms and ill-defined conditions (1 source)Urinary symptoms ; Translations: [Unspecified symptoms and signs involving the genitourinary system]01-64-5726HgqikhhoCyqklmtjqnmsv and screening for infectious disease (2 sources)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; Translations: [Contact with and (suspected) exposure to infections with a predominantly sexual mode of transmission]87-30-9355PjpkuwrdSmemf disorders and dislocations; trauma-related (20 sources)Patellofemoral syndrome of right knee; Translations: [Patellofemoral disorders, right knee]Onset: 600027-75-8272UtvdfaqYwhzwoljt disorders (1 source)Missed period; Translations: [Irregular menstruation, unspecified] 80-89-4249CoqnedhCawa disorders (20 sources)Severe major depression, single episode, without psychotic features; Translations: [Major depressive disorder, single episode, severe without psychotic features]Onset: 551775-50-9239TfpjhysNgvcw complications of (1 source)Vomiting of , unspecified; Translations: [Unspecified vomiting of , unspecified as to episode of care or not applicable] 54-36-6182VxgmttaaIyuad complications of (1 source)Headache; Translations: [Other specified related conditions, first trimester]69-04-6121HuulbymrJswxz complications of (2 sources)Gastroesophageal reflux disease in ; Translations: [Diseases of the digestive system complicating , unspecified trimester] 92-12-2951UunhtswjNzpeh complications of (11 sources) size does not accord with dates; Translations: [Uterine size- date discrepancy, unspecified trimester]Onset: 991462-02-8745JpsnoyqrUfckh ear and sense organ disorders (2 sources)Bilateral earache; Translations: [Otalgia, bilateral]04-05-2025 EpisodicOther endocrine disorders (20 sources)Polycystic ovary syndrome; Translations: [Polycystic ovarian syndrome]Onset: 842128-89-9439AutqxusDfyek endocrine disorders (2 sources)Disorder of endocrine system; Translations: [Endocrine disorder, unspecified]57-02-5115FnqutgjbDgxst female genital disorders (2 sources)Pain in female genitalia on intercourse; Translations: [Unspecified dyspareunia]42-65-1704MzndxbkRvopk female genital disorders (2 sources)Vaginal discharge; Translations: [Other specified noninflammatory disorders of vagina]07-44-3674QewoqpyuOxxpa and delivery including normal (16 sources); Translations: [Encounter for supervision of normal , unspecified, unspecified trimester]78-66-1705FrlctnohHnuzw screening for suspected conditions (not mental disorders or infectious disease) (4 sources)Patient encounter status; Translations: [Encounter for other specified screening]43-73-1782MeirdfgcWmdbiqg cyst (5 sources)Unspecified ovarian cyst, left side; Translations: [UNSPECIFIED OVARIAN CYST LEFT SIDE]Onset: 39-42-0238QcaeqpiqVbpsivsg codes; unclassified (2 sources)Gestation period, 12 weeks; Translations: [12 weeks gestation of ]63-38-7828AjfvgoifGwqqngsw codes; unclassified (2 sources)Gestation period, 18 weeks; Translations: [18 weeks gestation of ]61-53-3439PklnelltGqfvdbnf codes; unclassified (2 sources)Gestation period, 22 weeks; Translations: [22 weeks gestation of ]56-95-8671SekflnkjMpbnveez codes; unclassified (2 sources)Gestation period, 26 weeks; Translations: [26 weeks gestation of ]44-09-6279FjwyrzrhWgwugzdf codes; unclassified (2 sources)Gestation period, 28 weeks; Translations: [28 weeks gestation of ]99-74-3512NyscwmgyOzvleucc codes; unclassified (2 sources)Gestation period, 30 weeks; Translations: [30 weeks gestation of ]24-12-9268MvfqejbwDifwmwlt codes; unclassified (2 sources)Gestation period, 32 weeks; Translations: [32 weeks gestation of ]31-28-2566DmzsmentWrcloqu tract infections (6 sources)Urinary tract infectious disease; Translations: [Urinary tract infection, site not specified]76-66-2319Uhmugvpm Results Test NameValueInterpretationReference RangeFacilityCCF FERRITINon 09-07-2025 Ferritin [Mass/Vol]6.0 ng/mLLow8.0 - 252.0 ng/mLNMERCY [facility] [place] HealthcareInterpretation and review of laboratory resultsAbnoTemple University Health SystemCLINISYNCNMERCY [facility] [place] Healthcare MLR HEMOGLOBIN A1Con 59-52-3412Ijxgqfk [Mass/Vol]94 mg/dLNOMT VznsxbfcwlCbH1a (Bld) [Mass fraction]4.9 %4.5 - 6.2 %[facility] HealthcareComment on above:ADA RECOMMENDED LIMIT 4.0 - 6.0 ADA THERAPEUTIC TARGET < 7.0 ACTION SUGGESTED > 7.0 CLINISYNCNOMT HealthcareALL CBC WITH AUTO DIFFon 57-82-0494PPQCLRHBX ABSOLUTE AUTO0.0NOMT HealthcareBasophils/100 WBC (Bld)0.3 %0.2 - 2.0 %[facility] Eosinophils/100 WBC (Bld)0.9 %0.9 - 7.0 %[facility] HealthcareErythrocyte distribution width (RBC) [Ratio]13.6 %11.0 - 15.0 %NOM HealthcareHematocrit (Bld) [Volume fraction]28.5 %Low36.0 - 48.0 %NOM HealthcareHemoglobin (Bld) [Mass/Vol]9.4 g/dLLow12.0 - 16.0 g/dLNOCox MonettIMMATURE GRANULOCYTES ABS AUTO0.03NOMT HealthcareImmature granulocytes/100 WBC (Bld)0.4 %0.0 - 0.5 %[facility] Interpretation and review of laboratory resultsAbSouthwest Regional Rehabilitation Center LYMPHOCYTES ABSOLUTE AUTO1.0LowBarnes-Jewish HospitalLymphocytes/100 WBC (Bld)13.7 %Low 20.5 - 60.0 %[facility] HealthH (RBC) [Entitic mass]26.1 pgLow26.7 - 34.0 pgCarondelet HealthHC (RBC) [Mass/Vol]33.0 g/dL29.9 - 35.2 g/dLCarondelet HealthV (RBC) [Entitic vol]79.2 fLLow81.0 - 99.0 fLBarnes-Jewish HospitalMONOCYTES ABSOLUTE AUTO0.6 [facility] HealthcareMonocytes/100 WBC (Bld)7.3 %1.7 - 12.0 %[facility] NEUTROPHILS ABSOLUTE AUTO5.8[facility] HospitalNeutrophils/100 WBC (Bld)77.4 %High 43.0 - 75.0 %[facility] HospitalPlatelet mean volume (Bld) [Entitic vol]11.1 fL9.5 - 13.5 fLBarnes-Jewish HospitalTB EO #0.1NOMS [facility] HospitalTB YKR433DGQEPershing Memorial Hospital RBC 3.60LowNOCox MonettTB WBC7.5[facility] HospitalCLINISYNCNCenterpoint Medical Center Urinalysis macro (dipstick) panel (U)on 98-56-2037Vysdfhiav, UANegativeNegative - 4(70) +++ mg/dLNOMS HealthcareBlood, UANegativeNegative - 50 Tarun/mcLNOMS HealthcareClarity, UAClearNOMT HealthcareColor, UAYellowNOMT HealthcareGlucose, UANegativeNegative - 1999(110) ++++ mg/dLNOMT HealthcareInterpretation and review of laboratory resultsAbnoTemple University Health SystemKetones, UANegativeNegative - 160(16) ++++ mg/dLVAL[facility] VIEW [facility] HealthcareLeukocytes, UA1+Negative - 500+++ Joelle/mcLNOMS HealthcareNitrite, UANegativeNegative - PositiveNOMS HealthcarepH, UA6.05 - 9 NOM HealthcareProtein, UATraceNegative - 2000(20) ++++ mg/dLNOMS HealthcareSpec Grav, UA1.0101 - 1.03NOMS HealthcareUrobilinogen, UA2.00.2 - 12 mg/dLNOMT HealthcareNOMS HealthcareGLUCOSE TOLERANCE 3 HOURon 96-95-2490NBJYPYC TOLERANCE 3 HOURmg/dLNOMS HealthcareComment on above:GLU FAST 75 (<95) Col: 08/22/25 0844 GLU 1HR () Col: 08/22/25 0928 GLU 2HR () Col: 08/22/25 1028 GLU 3HR () Col: 08/22/25 1128 CLINISYNCNOMS HealthcareTBH UA (CLEAN/CATCH) OIL LEASE BROKER/MICRO IF IND.on 08-19-2025 BILIRUBIN URINENegativeNEGATIVENOMS HealthcareBLOOD URINENegativeNEGATIVENOMS [...] HealthcareCLINISYNCNOMS HealthcareUS OB FOLLOW UP TRANSABDOMINAL APPROACHon 44-49-1000SE OB FOLLOW UP TRANSABDOMINAL APPROACHFINDINGS: Comparison May [...] Delivery: 10/14/25 Gestational Age as of 07/13/2025: 16m2mPbngjqwgjq macro (dipstick) panel (U)on 59-33-5833Zipnasikg, UANegativeNegative - 4(70) +++ mg/dLNOMS HealthcareBlood, UANegativeNegative [...] mg/dLNOMS HealthcareNOMS HealthcareUrinalysis macro (dipstick) panel (U)on 07-66-2864Vpwfucigu, UA NegativeNegative - 4(70) +++ mg/dLNOMS HealthcareBlood, UANegativeNegative - 50 Tarun/mcLNOMS HealthcareClarity, UAClearNOMS HealthcareColor, UAYellowNOMS HealthcareGlucose, UANegativeNegative - 1999(110) ++++ mg/dLNOMS Healthcare Interpretation and review of laboratory resultsNormalBarnes-Jewish HospitalKetones, UA NegativeNegative - 160(16) ++++ mg/dLBarnes-Jewish HospitalLeukocytes, UANegative Negative - 500+++ Joelle/mcLNOCox MonettNitrite, UANegativeNegative - Positive NOM HealthcarepH, UA75 - 9NOMT HealthcareProtein, UANegativeNegative - 2000(20) ++++ mg/dLBarnes-Jewish HospitalSpec Grav, UA1.0051 - 1.03NOCox MonettUrobilinogen, UA2.00.2 - 12 mg/dLSaint Luke's North Hospital–[facility] HealthcareALL CBC WITH AUTO DIFFon 02-12-4457MTQHJXNLE ABSOLUTE LROW8NHAGBarnes-Jewish HospitalBasophils/100 WBC (Bld)0.3 %0.2 - 2.0 %[facility] HospitalEosinophils/100 WBC (Bld)1.3 %0.9 - 7.0 %[facility] Erythrocyte distribution width (RBC) [Ratio]14.3 %11.0 - 15.0 %[facility] Hematocrit (Bld) [Volume fraction]32 %Low36.0 - 48.0 %[facility] HospitalHemoglobin (Bld) [Mass/Vol]10.4 g/dLLow12.0 - 16.0 g/dLBarnes-Jewish HospitalIMMATURE GRANULOCYTES ABS AUTO0.03[facility] HospitalImmature granulocytes/100 WBC (Bld)0.4 %0.0 - 0.5 % [facility] HospitalInterpretation and review of laboratory resultsAbnoTemple University Health SystemLYMPHOCYTES ABSOLUTE RZYO6DdrXFRF Wilson Memorial HospitalLymphocytes/100 WBC (Bld) 14 %Low20.5 - 60.0 %[facility] HealthH (RBC) [Entitic mass]26.2 pgLow26.7 - 34.0 pgBarnes-Jewish HospitalMCHC (RBC) [Mass/Vol]32.5 g/dL29.9 - 35.2 g/dLBarnes-Jewish Hospital MCV (RBC) [Entitic vol]80.6 fLLow81.0 - 99.0 fLBarnes-Jewish HospitalMONOCYTES ABSOLUTE AUTO0.3NOCox MonettMonocytes/100 WBC (Bld)4 %1.7 - 12.0 %[facility] NEUTROPHILS ABSOLUTE AUTO5.7NOCox MonettNeutrophils/100 WBC (Bld)80 %High43.0 - 75.0 %NOMS HealthcarePlatelet mean volume (Bld) [Entitic vol]10.9 fL9.5 - 13.5 fLNOMS HealthcareTBH EO #0.1NOMS HealthcareTBH [id number] HealthcareTBH RBC3.97 LowNOMS HealthcareTBH WBC7.1NOMS HealthcareCLINISYNCNOMS HealthcareUrinalysis macro (dipstick) panel (U)on 17-17-3778Wgigcocyg, UANegativeNegative - 4(70) +++ mg/dLNOMS HealthcareBlood, UANegativeNegative [...] - 1.03[facility] Urobilinogen, UA1.00.2 - 12 mg/dLNOMT HealthcareNOMT HealthcareRECURRENT VAGINITIS (HTRX)on 21-81-0070URRHUEJCT GMEECDU7NIMS HealthcareATOPOBIUM VAGINAE Not detectedNOMS HealthcareBVAB 2,3 (BACTERIAL VAGINOSIS ASSOCIATED BACTERIA 2, 3); MOBILUNCUS SPP22.558AbnormalNOMT HealthcareBVAB 2,3 (BACTERIAL VAGINOSIS ASSOCIATED BACTERIA 2, 3); MOBILUNCUS SPPDetectedAbnormalNOMT HealthcareCANDIDA ALBICANS, PARAPSILOSIS, TRCOOQWANW6DECY HealthcareCANDIDA ALBICANS, PARAPSILOSIS, TROPICALISNot detectedNOMS HealthcareCANDIDA UYMFDTTN5OUXI HealthcareCANDIDA GLABRATANot detectedNOMS HealthcareCANDIDA TBVPCC1YXDT HealthcareCANDIDA KRUSEINot detectedNOMS HealthcareCHLAMYDIA CVWRUSDYLJK1EBOM HealthcareCHLAMYDIA TRACHOMATISNot detectedNOMS HealthcareERMB, C; MEFA25.177 AbnormalNOMS HealthcareERMB, C; MEFADetectedAbnormalNOMS HealthcareGARDNERELLA BBDMFAMEH62.544AbnormalNOMS HealthcareGARDNERELLA VAGINALISDetectedAbnormalNOMT HealthcareInterpretation and review of laboratory resultsAbnormalNOMT Healthcare MEGASPHAERA (TYPES 1, 2)0NOMS HealthcareMEGASPHAERA (TYPES 1, 2)Not detectedNOMS HealthcareMYCOPLASMA YCEIRIOYPE6OYCI HealthcareMYCOPLASMA GENITALIUMNot detected NOMS HealthcareNEISSERIA VBGFBQNFHAI2XZRM HealthcareNEISSERIA GONORRHOEAENot detectedNOMS HealthcareTET B, TET M21.747AbnormalNOMS HealthcareTET B, TET M DetectedAbnormalNOMS HealthcareTRICHOMONAS OWJELNZYB8RXSP HealthcareTRICHOMONAS VAGINALISNot detectedNOMS HealthcareNOMT HealthcareUS OB 14+ WEEKS ANATOMY SCAN on 10-29-5389DL OB 14+ WEEKS ANATOMY SCANFINDINGS: A single, [...] Delivery: 10/14/25 Gestational Age as of 05/18/2025: 60g9jChryeqgyij macro (dipstick) panel (U)on 37-48-1468Swirrrwvd, UANegativeNegative - 4(70) +++ mg/dLNOMS HealthcareBlood, UANegativeNegative [...] HealthcareNOMS Healthcare Urinalysis macro (dipstick) panel (U)on 79-79-7032Oluuwruqq, UANegativeNegative - 4(70) +++ mg/dLNOMS HealthcareBlood, UAPositiveNegative - 50 Tarun/mcLNOMT HealthcareComment on above:traceClarity, UACloudyNOMS HealthcareColor, UAYellow NOMS HealthcareGlucose, UANegativeNegative - 2000(110) ++++ mg/dLNOMT Healthcare Interpretation and review of laboratory resultsAbnormalNOMT HealthcareKetones, UANegativeNegative - 160(16) ++++ mg/dLNOMT HealthcareLeukocytes, UATrace Negative - 500+++ Joelle/mcLNOMT HealthcareNitrite, UAPositiveNegative - Positive NOMS HealthcareComment on above:positivepH, UA7.55 - 9NOMT HealthcareProtein, UA NegativeNegative - 2000(20) ++++ mg/dLNOMT HealthcareSpec Grav, UA1.021 - 1.03 NOMS HealthcareUrobilinogen, UA0.20.2 - 12 mg/dLNOCox MonettNOMT Healthcare ALL CBC WITH AUTO DIFFon 94-10-7067XDYKNXJBN ABSOLUTE SSTX5BLLR Healthcare Basophils/100 WBC (Bld)0.5 %0.2 - 2.0 %NOMS HealthcareEosinophils/100 WBC (Bld) 2.5 %0.9 - 7.0 %NOM HealthcareErythrocyte distribution width (RBC) [Ratio]17.3 %High11.0 - 15.0 %NOMS HealthcareHematocrit (Bld) [Volume fraction]32.1 %Low36.0 - 48.0 %NOM HealthcareHemoglobin (Bld) [Mass/Vol]10.4 g/dLLow12.0 - 16.0 g/dL NOMS [facility] HospitalIMMATURE GRANULOCYTES ABS AUTO0.01NOMT HealthcareImmature granulocytes/100 WBC (Bld)0.1 %0.0 - 0.5 %NOM HealthcareInterpretation and review of laboratory resultsAbnormalVALLEY VIEW [facility] HealthcareLYMPHOCYTES ABSOLUTE AUTO1.1 LowNOMT HealthcareLymphocytes/100 WBC (Bld)14.4 %Low20.5 - 60.0 %[facility]OMSc[facility] MCH (RBC) [Entitic mass]23.8 pgLow26.7 - 34.0 pgNOCox MonettMCHC (RBC) [Mass/Vol]32.4 g/dL29.9 - 35.2 g/dLNOMS HealthcareMCV (RBC) [Entitic vol]73.5 fL Low81.0 - 99.0 fLNOMS HealthcareMONOCYTES ABSOLUTE AUTO0.5NOMS Healthcare Monocytes/100 WBC (Bld)7.1 %1.7 - 12.0 %NOMS HealthcareNEUTROPHILS ABSOLUTE AUTO 5.5NOMS HealthcareNeutrophils/100 WBC (Bld)75.4 %High43.0 - 75.0 %NOMS HealthcarePlatelet mean volume (Bld) [Entitic vol]11.1 fL9.5 - 13.5 fLNOMS HealthcareTBH EO #0.2NOMS HealthcareTBH LQH899YWGD HealthcareTBH RBC4.37NOMS HealthcareTBH WBC7.3NOMS HealthcareCLINISYNCNOMS HealthcareUS OB TRANSVAGINALon 30-42-7947PC OB TRANSVAGINALEXAM: US OB TRANSVAGINAL HISTORY: Dating. [...] II, MD, PHD at 11-Mar-2025 10:13:58 AM [facility]eleradiologyNormalNot AvailableComment on above:Order Comment: US OB TRANSVAGINAL No LMP recorded.ALL DEHYDROEPIANDROSTERONEon 76-55-1030RECC, AGJVT919 ng/dL40 - 491 ng/dLNOMT HealthcareComment on above:Age 1 - 5 years [...] developed and its performance characteristics determined by [facility]. It has not been cleared or approved by the Food and Drug Administration. Performed at: [address] [id number] Timber Robber: Eliud Rodriguez MD, Phone: [phone] [facility] ANTI-MULLERIAN HORMONEon 53-65-7608EVLQ-MULLERIAN HORMONE (AMH)2.79 ng/mL.[facility] HealthcareComment on above:For assays employing antibodies, the possibility exists for interference by heterophile antibodies in the samples.1 1.Gracie Hernandez Interferences in Immunoassays - still a threat. Clin. Chem. 2000; 46: 2575-6066. This test was developed and its performance characteristics determined by [facility]. It has not been cleared or [...] exclude an AMH-secreting ovarian tumor. Performed at: [facility] [address] [place] [id number] Timber Robber: Burke Mackey MD, Phone: [phone] [facility] DHEA SULFATEon 31-73-2816TZRO-MMCISCC449.0 ug/dL 110.0 - 433.2 ug/dLNOMT HealthcareALL FOLLICLE STIMULATING HORMONEon 06-16-2024 FSH4.6. mIU/mLNOMS HealthcareComment on above:Adult Female Range Follicular phase 3.5 - 12.5 Ovulation phase 4.7 - 21.5 Luteal phase 1.7 - 7.7 Postmenopausal 25.8 - 134.8 Performed at: [facility] Lab[address] [id number] Timber Robber: Nate Don PhD, Phone: [phone] ALL LUTEINIZING HORMONEon 98-49-1034LWJWPJWACRM HORMONE(LH)7.6. mIU/mLNOMS HealthcareComment on above:Adult Female Range Follicular phase 2.4 - 12.6 Ovulation phase 14.0 - 95.6 Luteal phase 1.0 - 11.4 Postmenopausal 7.7 - 58.5 No Panel Informationon 38-87-4863JGSLHDGIVWDQH HealthcareALL CBC WITH AUTO DIFF on 21-81-3769NCIBFZTKJ ABSOLUTE AUTO0.0NOCox MonettBasophils/100 WBC (Bld)0.7 %0.2 - 2.0 %NOMS [facility] Memorial HospitalEosinophils/100 WBC (Bld)2.3 %0.9 - 7.0 %[facility] HospitalErythrocyte distribution width (RBC) [Ratio]15.6 %High11.0 - 15.0 % NOMScotland County Memorial HospitalHematocrit (Bld) [Volume fraction]34.8 %Low36.0 - 48.0 %NOMScotland County Memorial HospitalHemoglobin (Bld) [Mass/Vol]10.9 g/dLLow12.0 - 16.0 g/dLNOCox [place]ett IMMATURE GRANULOCYTES ABS AUTO0.01NOCox MonettImmature granulocytes/100 WBC (Bld)0.2 %0.0 - 0.5 %NOMScotland County Memorial HospitalInterpretation and review of laboratory resultsAbnormalNOCox MonettLYMPHOCYTES ABSOLUTE AUTO1.4NOMS [facility] Lymphocytes/100 WBC (Bld)23.6 %20.5 - 60.0 %NOMUniversity of Missouri Children's HospitalH (RBC) [Entitic mass]23.2 pgLow26.7 - 34.[address] JosephHC (RBC) [Mass/Vol]31.3 g/dL29.9 - 35.2 g/dLNOMT HealthcareMCV (RBC) [Entitic vol]74.0 fLLow81.0 - 99.0 fLNOMS HealthcareMONOCYTES ABSOLUTE AUTO0.5NOMS HealthcareMonocytes/100 WBC (Bld)7.8 % 1.7 - 12.0 %NOMS HealthcareNEUTROPHILS ABSOLUTE AUTO4.0NOMS Healthcare Neutrophils/100 WBC (Bld)65.4 %43.0 - 75.0 %NOMS HealthcarePlatelet mean volume (Bld) [Entitic vol]10.3 fL9.5 - 13.5 fLNOMS HealthcareTBH EO #0.1NOMS Healthcare TBH DLS440XVLH HealthcareTBH RBC4.70NOMS HealthcareTB WBC6.1NOMS Healthcare CLINISYNCNOMT HealthcareUS PELVIS W/ TRANSVAGINALon 31-37-4211ZglD[place] [address] Ultrasound Report Signed Patient: DANETTE AYALA MR#: [id number] : 2005 Acct:[id number] Age/Sex: 18 / F ADM Date: 06/15/24 Loc: [facility] Attending Dr: Shania Antunez D.O. Ordering Physician: Shania Antunez D.O. Date of Service: 06/15/24 Procedure(s): US pelvis w/ transvaginal Accession Number(s): [id number] cc: ELIANA MARQUIS ; Shania Antunez D.O. [facility] [place] [id number] Patient Name: DANETTE AYALA MRN: [facility]:[id number] date: 2005 Sex: F Assigned Patient Location: [facility] Current Patient Location: LAB Accession/Order Number: [id number] Exam Date: 06/15/2024 13:11 Report Date: 06/15/2024 [...] overt stigmata of PCOS Electronically authenticated by: CLRAK LY Date: 06/15/2024 22:02 Dictated By: Clark Ly M.A. Signed By: 06/15/242203 DD/ 01 TD/TT: Medical Assistant Internal Medicine:[facility], Radiologist, - 06/15/2024 [place] [address] Ultrasound Report Signed Patient: DANETTE AYALA MR#: [id number] : 2005 Acct:[id number] Age/Sex: 18 / F ADM Date: 06/15/24 Loc: [facility] Attending Dr: Shania Antunez D.O. Ordering Physician: Shania Antunez D.O. Date of Service: 06/15/24 Procedure(s): US pelvis w/ transvaginal Accession Number(s): [id number] cc: ELIANA MARQUIS ; Shania Antunez D.O. [facility] [place] [id number] Patient Name: DANETTE AYALA MRN: [id number] date: 2005 Sex: F Assigned Patient Location: [facility] Current Patient Location: LAB Accession/Order Number: [id number] Exam Date: 06/15/2024 13:11 Report Date: 06/15/2024 [...] overt stigmata of PCOS Electronically authenticated by: CLRAK LY Date: 06/15/2024 22:02 Dictated By: Clark Ly M.A. Signed By: 06/15/242203 DD/ 01 TD/TT: Medical Assistant Internal Medicine: [facility] citibuddiesRadiology Study observation (narrative)[facility] [employer]uddies PELVIS W/ TRANSVAGINALOrdered By: Radiologist Radiology on 20-84-1272BHUY citibuddies Work Phone: US PELVIS AND TRANSVAGon [id number] PELVIS AND TRANSVAGEXAMINATION: US PELVIS AND TRANSVAG [...] Electronically authenticated by: KIAN MONREAL Date: 2022-01-02 14:40[facility] PELVIS AND TRANSVAGon [id number] PELVIS AND TRANSVAG EXAMINATION: US PELVIS AND [...] authenticated by: MELVIN ALONSO Date: 2021-10-12 15:53NormalThe [facility] AUTO DIFFon 04-17-5269SUIM #0.0 103/ulNormal0.0-0.1The [facility] HospitalComment on above:Performed By: #### CBC #### [facility] [address], [place] [address] Cain KarenBasophils/100 WBC (Bld)0.3 %Normal0.2-2.0[facility] Comment on above:Performed By: #### CBC #### [facility] [address], [place] [address] Cain KarenEO #0.0 103/ulNormal0.0-0.7The [facility]ina HospitalComment on above: Performed By: #### CBC #### [facility] [address], [place] [address] Cain KarenEosinophils/100 WBC (Bld)0.3 %Critically low0.9-7.0The [facility]ina HospitalComment on above:Performed By: #### CBC #### [facility] [address], [place] [address] Cain KarenErythrocyte distribution width (RBC) [Ratio]14.3 %Ynsuft16.0-15.0The [facility]ina HospitalComment on above:Performed By: #### CBC #### [facility] [address] [place] [address] Cain KarenHematocrit (Bld) [Volume fraction]34.1 %Critically low36.0-48.0The [facility]ina HospitalComment on above:Performed By: #### CBC #### [facility] [address] [place] [address] Cain KarenHemoglobin (Bld) [Mass/Vol]11.1 g/dLCritically low12.0-16.0The [facility]ina HospitalComment on above:Performed By: #### CBC #### [facility] [address] [place] [address] Cain KarenIG #0.02 10e3/ulNormal0.00-0.03The [facility]ina HospitalComment on above:Performed By: #### CBC #### [facility] [address] [place] [address] Cain KarenIG %0.2 %Normal0.0-0.5The [facility] HospitalComment on above: Performed By: #### CBC #### [facility] [address] [place] [address] Cain KarenLYMPH #0.9 103/ulCritically low1.2-3.8The [facility] HospitalComment on above:Performed By: #### CBC #### [facility] [address] [place] [address] Cain KarenLymphocytes/100 WBC (Bld)9.3 %Critically low20.5-60.0The [facility]ina HospitalComment on above:Performed By: #### CBC #### [facility] [address] [place] [address] Cain KarenMANUAL DIFF REQNONormalThe Medina HospitalComment on above: Performed By: #### CBC #### [facility] [address] [place] [address] Cain KarenMCH (RBC) [Entitic mass]25.6 pgCritically low26.7-34.0The [facility]ina HospitalComment on above:Performed By: #### CBC #### [facility] [address] [place] [address] Cain ChapmanMCHC (RBC) [Mass/Vol]32.6 g/oPUdojfg55.9-35.2[facility] Comment on above:Performed By: #### CBC #### [facility] [address] [place] [address] Cain KarenMCV (RBC) [Entitic vol]78.8 fLCritically low79.1-95.6The Medina HospitalComment on above:Performed By: #### CBC #### [facility] [address] [place] [address] Cain OlsonenMONO #0.6 103/ulNormal0.3-0.8The [facility]ina HospitalComment on above: Performed By: #### CBC #### [facility] [address] [place] [address] Cain KarenMonocytes/100 WBC (Bld)6.3 %Normal1.7-12.0[facility] Comment on above:Performed By: #### CBC #### [facility] [address] [place] [address] Cain KarenNEUT #8.0 103/ulCritically high1.4-6.5The [facility]ina HospitalComment on above:Performed By: #### CBC #### [facility] [address] [place] [address] Cain KarenNeutrophils/100 WBC (Bld)83.6 %Critically high43.0-75.0The [facility]ina HospitalComment on above:Performed By: #### CBC #### [facility] [address] [place] [address] Cain KarenPlatelet mean volume (Bld) [Entitic vol]11.0 fLNormal9.5-13.5The [facility]ina HospitalComment on above:Performed By: #### CBC #### [facility] [address] [place] [address] Cain MbzmhJJZ450 103/wmAyiadv909-444Hvh [facility] Campusment on above: Performed By: #### CBC #### [facility] [address], [place] [address] Cain ChapmanRBC4.33 106/ulNormal3.40-5.30The [facility] on above: Performed By: #### CBC #### [facility] [address], [place] [address] Cain OlsonenWBC9.6 103/ulNormal4.0-11.0The [facility] on above: Performed By: #### CBC #### [facility] [address], [place] [address] Cain KarenCT ABD/PELV W CONon [id number] ABD/PELV W CONCLINICAL HISTORY: ABDOMINAL DISTENSION (GASEOUS). [...] Electronically authenticated by: HARSHA AGUILAR Date: 2021-05-05 14:12[facility] URINE PROFILEon 31-87-5181Jbpiuvfki Ql (U)NegativeNormal NEGATIVEAvita Health System Galion HospitalComment on above:Performed By: #### ERUR, PREGU #### [facility] [address] [place] [address] Cain KarenClarity (U)CLEARNormalCLEARAvita Health System Galion HospitalComment on above: Performed By: #### ERUR, PREGU #### [facility] [address] [place] [address] Cain KarenColor (U)LT. YELLOWNormalYELLOWAvita Health System Galion HospitalComment on above:Performed By: #### ERUR, PREGU #### [facility] [address] [place] [address] Cain KarenERUAHDA micrscopic examination will be performed if indicated.Normal [facility] Gal[facility] HospitalComment on above:Performed By: #### ERUR, PREGU #### [facility] [address] [place] [address] Cain KarenGlucose Ql (U)NegativeNormalNEGATIVEAvita Health System Galion HospitalComment on above:Performed By: #### ERUR, PREGU #### [facility] [address] [place] [address] Cain KarenHemoglobin Ql (U)NegativeNormalNEGATIVEAvita Health System Galion HospitalComment on above:Performed By: #### ERUR, PREGU #### [facility] [address] [place] [address] Cain KarenKetones Ql (U)NegativeNormalNEGATIVEAvita Health System Galion HospitalComment on above:Performed By: #### ERUR, PREGU #### [facility] [address] [place] [address] Cain KarenLEUKOCYTESNegativeNormalNEGATIVEAvita Health System Galion HospitalComment on above:Performed By: #### ERUR, PREGU #### [facility] [address] [place] [address] Cain OlsonenNitrite Ql (U)NegativeNormalNEGATIVEThe Medina HospitalComment on above:Performed By: #### BE, PREGU #### [facility] [address] [place] [address] Cain OlsonenpH (U)6.5 [pH]Normal5-9The Medina HospitalComment on above: Performed By: #### BE, PREGU #### [facility] [address] [place] [address] Cain OlsonenSPEC GRAVITY1.864Xoeddc1.005-<=1.025The [facility]ina HospitalComment on above:Performed By: #### BE, PREGU #### [facility] [address] [place] [address] Cain ChapmanUA PROTEINNegativeNormalNEGATIVE/ TRACEThe [place] HospitalComment on above:Performed By: #### BE, PREGU #### [facility] [address] [place] [address] Cain OlsonenUR MICRO INDNOT INDICATEDNormalThe Medina HospitalComment on above:Performed By: #### BE, PREGU #### [facility] [address] [place] [address] Cain ChapmanUrobilinogen Qn (U)0.2 {Dagoberto'U}/dLNormal0.2 - 1.0The Medina HospitalComment on above:Performed By: #### KIERANR, PREGU #### [facility] [address] [place] [address] Cain KarenLIPASEon 20-15-5584Rmctre [Catalytic activity/Vol]53.0 U/LNormal 23.0-300.0The [facility]ina HospitalComment on above:Performed By: #### CMP, LIPA #### [facility] [address] [place] [address] Cain KarenPREGNANCY URon 70-72-2376YVAKQUVMG, QUALNegativeNormalNEGATIVEThe [place] HospitalComment on above:Performed By: #### KIERANR, PREGU #### [facility] [address] [place] [address] Cain KarenPROF 14(COMP METB)on 38-36-8507Hbdshwv [Mass/Vol]3.7 g/dLNormal 3.5-5.0[facility] HospitalComment on above:Performed By: #### CMP, LIPA #### [facility] [address] [place] [address] Cain KarenAlbumin/Globulin [Mass ratio]1.2 {ratio}NormalAvita Health System Galion Hospital Comment on above:Performed By: #### CMP, LIPA #### [facility] [address] [place] [address] Cain KarenALP [Catalytic activity/Vol]86 U/GXrudwj07-538BseAvita Health System Galion Hospital Comment on above:Performed By: #### CMP, LIPA #### [facility] [address] [place] [address] Cain KarenALT [Catalytic activity/Vol]22 U/LNormal9-52[facility] Comment on above:Performed By: #### CMP, LIPA #### [facility] [address] [place] [address] Cain KarenAnion gap [Moles/Vol]11.6 mmol/LNormalAvita Health System Galion HospitalComment on above:Performed By: #### CMP, LIPA #### [facility] [address] [place] [address] Cain KarenAST [Catalytic activity/Vol]15 U/OBwfcls70-72QntAvita Health System Galion Hospital Comment on above:Performed By: #### CMP, LIPA #### [facility] [address] [place] [address] Cain KarenBilirubin [Mass/Vol]0.5 mg/dLNormal0.2-1.3TGu[facility]sey Memorial [facility] Comment on above:Performed By: #### CMP, LIPA #### [facility] [address] [place] [address] Cain KarenCalcium [Mass/Vol]9.2 mg/dLNormal8.4-10.2[facility] Comment on above:Performed By: #### CMP, LIPA #### [facility] [address] [place] [address] Cain KarenChloride [Moles/Vol]105 mmol/PVnhzcb03-431[facility] Comment on above:Performed By: #### CMP, LIPA #### [facility] [address] [place] [address] Cain KarenCO2 [Moles/Vol]25.4 mmol/TWbgbtq46.0-30.0[facility] Comment on above:Performed By: #### CMP, LIPA #### [facility] [address] [place] [address] Cain KarenCreatinine [Mass/Vol]0.72 mg/dLNormal0.52-1.04[facility] Comment on above:Performed By: #### CMP, LIPA #### [facility] [address] [place] [address] Cain KarenGlobulin (S) [Mass/Vol]3.2 g/dLNormalThe [facility]ina HospitalComment on above:Performed By: #### CMP, LIPA #### [facility] [address] [place] [address] Cain KarenGlucose [Mass/Vol]88 mg/dUXehulf55-415MwsAvita Health System Galion HospitalComment on above:Performed By: #### CMP, LIPA #### [facility] [address] [place] [address] Cain KarenPotassium [Moles/Vol]4.0 mmol/LNormal3.4-5.0[facility] Comment on above:Performed By: #### CMP, LIPA #### [facility] [address] [place] [address] Cain KarenProtein [Mass/Vol]6.9 g/dLNormal6.1-8.2[facility] Gal[facility] HospitalComment on above:Performed By: #### CMP, LIPA #### [facility] [address] [place] [address] Cain KarenSodium [Moles/Vol]138 mmol/IVbegxg245-840[facility] Comment on above:Performed By: #### CMP, LIPA #### [facility] [address], [place] [address] Cain KarenUrea nitrogen [Mass/Vol]8.0 mg/dLNormal6.4-19.3[facility] Comment on above:Performed By: #### CMP, LIPA #### [facility] [address], [place] [address] Cain KarenUrea nitrogen/Creatinine [Mass ratio]11.1 mg/mgNoOur Lady of Mercy Hospital - AndersonComment on above:Performed By: #### JUNE, LIPA #### [facility] [address], [place] [address] Cain KarenUS PELVIS TRANSVAGon [id number] PELVIS TRANSVAGEXAM: US PELVIS TRANSVAG HISTORY: Cyst [...] Electronically authenticated by: JONI GUZMAN Date: 2021-05-05 15:27[facility] Vital Signs Date TimeVital SignValuePerforming AafuxanrcEhgusdzt90-29-3197 15:28-0400Body mass index (BMI) [Ratio]28.97 kg/m2Amy Gigi PA Work Phone: [phone]-[facility] HospitalTqlahyeqzm86-97-6452 15:28-0400Body rlmiif68.57 kgAmy Gigi PA Work Phone: [phone] [place], [place] [address]Xwyelfnwjt80-89-9676 15:28-0400Diastolic blood ojfzrdpx49 mm[Hg]Munira Giig PA Work Phone: [phone] [place], [place] [address]Fazohbcdxr26-67-4535 15:28-0400Systolic blood qwqadecm053 mm[Hg]Munira Garcia PA Work Phone: [phone] [place], [place] [address]Wmiysharfe06-86-6429 15:16-0400Body mass index (BMI) [Ratio]28.92 kg/m2Amy Gigi PA Work Phone: [phone] [place], [place] [address]Fehteizroc95-70-4603 15:16-0400Body gplmdi03.43 kgMunira Garcia PA Work Phone: [phone] [place], [place] [address]Tunkegoqxa69-87-2265 15:16-0400Diastolic blood ypjmsgab25 mm[Hg]Munira Garcia PA Work Phone: [phone] [place], [place] [address]Zflkdgkgtz15-16-6701 15:16-0400Systolic blood xiwstgck676 mm[Hg]Munira Garcia PA Work Phone: [phone] [place], [place] [address]Udprscozrd00-61-9888 13:59-0400Body mass index (BMI) [Ratio]28.84 kg/x6RpgkifmdDarlene Olmstead [employer] Work Phone: [phone] [place], [place] [address]Qpwubcdanm08-72-4884 13:59-0400Body pdrmix68.2 kg Darlene Angelesly [employer] Work Phone: [phone] [place], [place] [address]Yqscunfrht67-88-0245 13:59-0400Diastolic blood myzpssao87 mm[Hg]Darlene Ishan [employer] Work Phone: [phone] [place], [place] [address]Atqikijalq30-36-7496 13:59-0400Systolic blood mm[Hg]Darlene Angelesly [employer] Work Phone: [phone] [place], [place] [address]Nogdfxxukf01-60-5758 15:28-0400Body mass index (BMI) [Ratio]28.69 kg/m8Pofqy Tulio DO Work Phone: [facility] HospitalJrevuhobqo53-74-2325 15:28-0400Body kkgwid09.81 kgCorey Tulio DO Work Phone: [phone] [place], [place] [address]Gcnottwrqe82-43-4232 15:28-0400Diastolic blood bnneptsl70 mm[Hg]Shania Tulio DO Work Phone: [phone] [place], [place] [address]Hljpbbhglc20-58-1828 15:28-0400Systolic blood hafzlkub115 mm[Hg]Shania Tulio DO Work Phone: [phone] [place], [place] [address]Iwrdnibwyy10-62-5424 13:52-0400Body mass index (BMI) [Ratio]28.97 kg/b6Wywrx Tulio DO Work Phone: [phone] [place], [place] [address]Eivhfcqgkp41-13-8044 13:52-0400Body uiakbj95.57 kgCorey Tulio DO Work Phone: [phone] [place], [place] [address]Rtodqstuey83-53-7285 13:52-0400Diastolic blood afzyqxss14 mm[Hg]Shania Tuilo DO Work Phone: [phone] [place], [place] [address]Yrahnodkck30-43-6660 13:52-0400Systolic blood ovlgikee073 mm[Hg]Shania Tulio DO Work Phone: [phone] [place], [place] [address]Fzohlepwrs10-86-2726 15:54-0400Body mass index (BMI) [Ratio]28.24 kg/m2Amy Gigi LALA Work Phone: [phone] [place], [place] [address]Uqtccxsetc10-36-5813 15:54-0400Body .62 kgAmy Gigi LALA Work Phone: [phone] [place], [place] [address]Rxnovtdjvb04-46-0862 15:54-0400Diastolic blood xbdoshbn01 mm[Hg]Munira LALA Work Phone: [phone] [place], [place] [address]Dedrgdjvry47-80-1710 15:54-0400Systolic blood thjnygwc770 mm[Hg]Munira LALA Work Phone: [phone]-[facility] HospitalYgmfnfedez97-82-5018 13:34-0400Body mass index (BMI) [Ratio]29.35 kg/h2Fwlsr Tulio DO Work Phone: [facility] HospitalOstzpkfgte27-60-1341 13:34-0400Body aomxbg75.56 kgCorey Tulio DO Work Phone: [facility] HospitalRhnuopnoqy95-14-8047 13:34-0400Diastolic blood qjijnjlw16 mm[Hg]Shania Tulio DO Work Phone: [facility] HospitalMicgwqercv08-02-1093 13:34-0400Systolic blood mm[Hg]Shania Tulio DO Work Phone: [facility] HospitalLzcprdrqmp30-25-3542 11:07-0400Body rsgxny711.6 cmSfacundo Hernandes [employer] Work Phone: [facility] HospitalCuzaqwknye72-06-4458 11:07-0400Body mass index (BMI) [Ratio]29.18 kg/f7DqydjaJose Antonio Hernandes [employer] Work Phone: [facility] HospitalRapneucunu06-49-3186 11:07-0400Body xjofab14.11 kgShgaye Hernandes [employer] Work Phone: [facility] HospitalHoecjmjwet34-24-9288 11:07-0400Diastolic blood ejpsieie17 mm[Hg]Jose Antonio Hernandes [employer] Work Phone: [facility] HospitalMgkbeulwlv94-40-6725 11:07-0400Heart rate79 /min Jose Antonio Hernandes [employer] Work Phone: [facility] HospitalPssuankifc72-90-7413 11:07-0400Respiratory rate16 /minSfacundo Hernandes [employer] Work Phone: [facility] HospitalWaaapgtgve35-75-3513 11:07-4752WlR9% (BldA) [Mass fraction]98 %Jose Antonio Hernandes [employer] Work Phone: [facility] HospitalYhkujfkhpq09-41-5285 11:07-0400Systolic blood aesmaoec215 mm[Hg]Jose Antonio Hernandes [employer] Work Phone: [facility] HospitalZscdzyxcie32-88-9412 13:36-0500Body mass index (BMI) [Ratio]32.58 kg/r4Vbxsy Tulio DO Work Phone: [facility] HospitalKakvncziib62-15-6999 13:36-0500Body jivyth57.09 kgCorey Tulio DO Work Phone: [facility]OC[facility] MonettXuxzjkhymq48-78-2615 13:36-0500Diastolic blood jysyyicj27 mm[Hg]Shania Tulio DO Work Phone: [facility] MonettUtonoiagkc81-09-5723 13:36-0500Systolic blood vmqmbeor916 mm[Hg]Shania Tulio DO Work Phone: [facility] Encounters Encounter DateEncounter TypeCare ProviderFacilityStart: 09-07-2025 End: 70-86-8164Onwxxqhwa Result EncounterKristina Ishan [employer] Work Phone: [facility] External Department UnsolicitedStart: 09-07-2025 End: 07-84-3438Hehffmgft Result EncounterKristina Ishan [employer] Work Phone: [facility] External Department UnsolicitedStart: 08-27-2025 End: 64-99-5754Qwnppxbve Result EncounterKristina Ishan [employer] Work Phone: [facility] External Department UnsolicitedStart: 08-27-2025 End: 05-00-4058Tueerzgcr Result EncounterKristina Ishan [employer] Work Phone: [facility] External Department UnsolicitedStart: 08-26-2025 End: 15-71-8812Djmxwvhpm Result EncounterKristina Ishan [employer] Work Phone: [facility] External Department UnsolicitedStart: 08-26-2025 End: 12-46-2784Fzsmrpeak Result EncounterKristina Ishan [employer] Work Phone: [facility] External Department UnsolicitedStart: 08-25-2025 End: 62-96-6953shyofcilhgNCI RAMEYNot AvailableStart: 08-25-2025 End: 18-06-3805Jjdohr outpatient visit 15 minutesMunira LALA Work Phone: [facility] [place] OBGYNComment on above:Urinary tract infection without hematuria, site unspecified (Primary Dx); Third trimester ([facility]); 32 weeks gestation of ([facility])Start: 08-25-2025 End: 03-49-0108Jtwvqw Lela LALA Work Phone: [facility] [place] OBGYNStart: 08-25-2025 End: 56-10-6064Shpiqh Lela LALA Work Phone: [facility] [place] OBGYNStart: 08-22-2025 End: 41-44-6511Jamuvpmvc Result EncounterCorey Tulio DO Work Phone: [facility] External Department UnsolicitedStart: 08-22-2025 End: 31-01-8998Gtvkxtgcm Result EncounterCorey Tulio DO Work Phone: NORZ External Department UnsolicitedStart: 08-19-2025 End: 51-25-4067Gmonaiile Result EncounterCorey Tulio DO Work Phone: NOUI External Department UnsolicitedStart: 08-19-2025 End: 51-11-0947Lqqwmbrdk Result EncounterCorey Tulio DO Work Phone: NOFA External Department UnsolicitedStart: 08-11-2025 End: 22-45-0172Auetcn outpatient visit 15 minutesMunira LALA Work Phone: [facility] [place] OBGYNComment on above:Third trimester ([facility]); 30 weeks gestation of ([facility])Start: 08-11-2025 End: 49-54-0876rtrynhxzzdHWO RAMEYNot AvailableStart: 07-27-2025 End: 90-67-9049Yjyfrp Quinn Olmstead NP Work Phone: [facility] [place] [facility]BGYNStart: 07-27-2025 End: 01-32-4139Mejmik Quinn Olmstead NP Work Phone: [facility] [place] [facility]BGYNStart: 07-27-2025 End: 44-01-9500fhrmomfctuBWMVLQRD EBERLYNot AvailableStart: 07-27-2025 End: 34-53-8841Yuymup outpatient visit 15 minutesDarlene Olmstead [employer] Work Phone: [facility] [place] OBGYNComment on above:Anemia, unspecified type (Primary Dx); 28 weeks gestation of ([facility]); Third trimester ([facility]); Elevated glucose tolerance testStart: 07-25-2025 End: 45-75-1761Pbepfetym Result EncounterGeneric External Data ProviderNOMS External Department UnsolicitedStart: 07-25-2025 End: 82-06-1212Akyvmmbrt Result EncounterGeneric External Data ProviderNOMS External Department UnsolicitedStart: 07-13-2025 End: 88-52-5233Iclple outpatient visit 15 minutesCorey Tulio DO Work Phone: [facility] [place] OBGYNComment on above:Cystitis (Primary Dx); 26 weeks gestation of ([facility]); Second trimester ([facility]); Gastroesophageal reflux in ([facility])Start: 07-13-2025 End: 13-06-4968xotkgixwbnOENSR FAZIONot AvailableStart: 07-13-2025 End: 01-29-2875Swrkst flowsheetCorey Tulio DO Work Phone: [facility] [place] [facility]BGYNStart: 07-13-2025 End: 50-42-9991Tyouqq flowsheetCorey Tulio DO Work Phone: [facility] [place] [facility]BGYNStart: 06-15-2025 End: 77-23-9101Kwqskg flowsheetCorey Tulio DO Work Phone: [facility] [place] [facility]BGYNStart: 06-15-2025 End: 73-77-8803Tgcdpf flowsheetCorey Tulio DO Work Phone: [facility] [place] OBGYNStart: 06-15-2025 End: 27-79-6587Gxlrjq outpatient visit 15 minutesCorey Tulio DO Work Phone: [facility] [place] OBGYNComment on above:22 weeks gestation of ([facility]); Second trimester ([facility]); Diabetes mellitus screeningStart: 06-15-2025 End: 12-46-8379ulqsafgxocOJVSQ FAZIONot AvailableStart: 05-31-2025 End: 64-09-1884sbyfrthszkBWT RAMEYNot AvailableStart: 05-18-2025 End: 01-14-6843Soopep outpatient visit 15 minutesMunira LALA Work Phone: [facility] RONI OBComment on above:Screening, , for anatomic survey ([facility]); STD exposure; Vaginal discharge; Second trimester ([facility]); 18 weeks gestation of ([facility])Start: 05-18-2025 End: 09-04-5193qadrzkkxgfBMQ RAMEYNot AvailableStart: 05-18-2025 End: 76-69-6701Bwxzfe flowsJames LALA Work Phone: [facility] BCP OBStart: 05-18-2025 End: 83-09-1559Qgzwix flowsheetMunira LALA Work Phone: [facility] BCP OBStart: 05-18-2025 End: 34-57-9202Zwhaknia Result EncounterMunira LALA Work Phone: [facility] External Department UnsolicitedStart: 04-06-2025 End: 21-59-3974Qcspfi flowsheetCorey Tulio DO Work Phone: [facility] BCP OBStart: 04-06-2025 End: 87-61-7772Capalp flowsheetCorey Tulio DO Work Phone: [facility] BCP OBStart: 04-06-2025 End: 94-22-8042Hgwwqj outpatient visit 15 minutesCorey Tulio DO Work Phone: [facility] BCP OBComment on above:First trimester ; 12 weeks gestation of ; Urinary tract infection without hematuria, site unspecified; Other iron deficiency anemiaStart: 04-06-2025 End: 88-74-8396ewmntlvtxtHPMBL FAZIONot AvailableStart: 04-05-2025 End: 22-63-2642Maexfv Heide Hernandes [employer] Work Phone: [facility] CI FMStart: 04-05-2025 End: 89-90-9695Dfbdrc flowsИрина Hernandes [employer] Work Phone: [facility] CI FMStart: 04-05-2025 End: 33-96-8286Jtntyu outpatient visit 25 minutesShgaye Hernandes [employer] Work Phone: [facility] CI FMComment on above:Jaw pain (Primary Dx); Major depressive disorder, single episode, 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) (CMS/HCC); Otalgia of both earsStart: 04-05-2025 End: 06-80-4036azjohaxckiKTLXHU M SHIVELYNot AvailableStart: 04-01-2025 End: 81-88-0396Myuxltmnc Result EncounterGeneric External Data ProviderNOMS External Department UnsolicitedStart: 04-01-2025 End: 44-63-1844Prwrtbtqq Result EncounterGeneric External Data ProviderNOMS External Department UnsolicitedStart: 03-10-2025 End: 67-31-6280jhrnewezhwSITHIK SHIVELYNot AvailableStart: 03-10-2025 End: 58-17-1588Jbotie outpatient visit 5 minutesNoms Bcp Ob Tuilo NurseNOMS BCP OBComment on above:GA: 6d9eNcith: 03-10-2025 End: 36-35-6400kxpccwcmhzQOXFVX SHIVELYNot AvailableStart: 09-07-2024 End: 50-62-5440Vghsnf flowsheetCorey Tulio DO Work Phone: NOMS BCP OBStart: 09-07-2024 End: 68-60-2417Fdiwii flowsheetCorey Tulio DO Work Phone: NOMS BCP OBStart: 09-07-2024 End: 02-20-8429Mbqzoi outpatient visit 15 minutesCorey Tulio DO Work Phone: NOMS BCP OBComment on above:PCOS (polycystic ovarian syndrome); Hormone imbalance; Pelvic pain in female; Pain in female genitalia on intercourseStart: 09-07-2024 End: 44-44-3788ryytjuxzmaWPNED FAZIONot AvailableStart: 06-15-2024 End: 23-84-2287Imjnqbvfo Result EncounterGeneric External Data ProviderNOMS External Department UnsolicitedStart: 06-15-2024 End: 88-01-0684Yaegeapiv Result EncounterGeneric External Data ProviderNOMS External Department UnsolicitedStart: 01-02-2022 End: 05-36-1476arsjkybixwNF HEAVENLY CHAPARROFacility:K8Uekhs: 10-12-2021 End: 04-47-0321pdtghnirapVA HEAVENLY CHAPARROFacility:R7Ippmf: 05-05-2021 End: 62-98-4412hmngfzqpfbIZ ELIANA ALDAFacility:H1 Procedures DateProcedureProcedure DetailPerforming ClinicianStart: 97-02-6779QQQ FERRITIN Darlene Olmstead [employer] Work Phone: Start: 01-40-6256FYJ HEMOGLOBIN R1WBdgexvjsDarlene Olmstead [employer] Work Phone: Start: 20-78-7475SRE CBC WITH AUTO DIFFAngelinaa Ishan [employer] SHE[employer]TER Work Phone: Start: 41-32-3557Xcfhm dip stick/tablet rgnt non-auto w/o micrscpKrricha Ishan [employer] Work Phone: Start: 24-96-1690GLOYZMA TOLERANCE 3 HOURCorey Tulio DO Work Phone: Start: 41-05-0566UEX UA (CLEAN/CATCH) OIL LEASE BROKER/MICRO IF IND.Shania Tulio DO Work Phone: Start: 60-10-3116Hwgaa dip stick/tablet rgnt non-auto w/o micrscpAmy Gigi LALA Work Phone: Start: 86-00-7863Bpyhx dip stick/tablet rgnt non-auto w/o micrscpKristina Ishan [employer] Work Phone: start: 12-90-8440CGZ CBC WITH AUTO DIFFCorey Tulio DO Work Phone: Start: 51-15-7638Jzhbj dip stick/tablet rgnt non-auto w/o micrscpCorey Tulio DO Work Phone: Start: 58-84-7886Lgjbn dip stick/tablet rgnt non-auto w/o micrscpCorey Tulio DO Work Phone: Start: 78-10-0742CYSKYWWUK VAGINITIS (HTRX)Munira LALA Work Phone: Start: 58-01-8145Noecr dip stick/tablet rgnt non-auto w/o micrscpAmy Gigi LALA Work Phone: Start: 65-30-3029Vemqk dip stick/tablet rgnt non-auto w/o micrscpCorey Tulio DO Work Phone: Start: 78-08-4228YIE CBC WITH AUTO DIFFCorey Tulio DO Work Phone: Start: 88-31-2798LA PELVIS W/ TRANSVAGINALGeneric External Data ProviderStart: 86-83-0587QMF ANTI-MULLERIAN HORMONECorey Tulio DO Work Phone: Start: 24-46-3654KPL CBC WITH AUTO DIFFCorey Tulio DO Work Phone: Start: 02-18-1885HWP DEHYDROEPIANDROSTERONECorey Tulio DO Work Phone: Start: 65-64-5284MVU DHEA SULFATEGeneric External Data ProviderStart: 24-40-0882UGC FOLLICLE STIMULATING HORMONEGeneric External Data ProviderStart: 66-32-8590KNX LUTEINIZING HORMONEGeneric External Data Provider Plan of Treatment DateCare ActivityDetailAuthorStart: 09-13-2025 End: 72-56-0275Gdeszsy encounter lcucdvraz87/18/2025 9:20 AM EST Routine [facility] [address] [place], [id number] Shania Antunez DO [address] [place] [address] NOMKelley [place] OBGYNStart: 08-25-2025 End: 79-67-9716Uuhgpcn encounter hmcwvaolr19/30/2025 3:20 PM EDT Routine NOMKelley BACAGYAnat [address] [place], [place] Munira Garcia PA [address] [place], [place] [id number] NOMKelley [place] OBGYNStart: 07-27-2025 End: 72-32-9807Jwynoecsuty of glucose 3 hours after glucose challenge for glucose tolerance testGlucose tolerance, 3 hours Lab Routine Elevated glucose tolerance test Expected: 07/27/2025 (Approximate), Expires: 07/27/2026[facility] Work Phone: comment on above:Expected: 07/27/2025 (Approximate), Expires: 07/27/2026Start: 07-27-2025 End: 82-92-2694Utbkuhz encounter mbwtokkra48/01/2025 1:50 PM EDT Routine NOMKel[facility] BACAGYN [address] [place], [id number] Darlene Olmstead, [employer] [address] [place] [id number] NOMKelley [place] OBGYNStart: 07-13-2025 End: 44-28-0521Ctcnyyi encounter procedureNOMS Deion OBGYNComment on above: ArrivedStart: 07-13-2025 End: 08-54-8432XY for pregnancyUS OB follow up transabdominal approach Imaging Routine Second trimester ([facility]) Expected: 07/13/2025, Expires: 11/12/2025[facility] Work Phone: comment on above:Expected: 07/13/2025, Expires: 11/12/2025Start: 16-09-3162UBWOL-19 Vaccine ( season)COVID-19 Vaccine ( season)NOMS HealthcareStart: 79-82-1845Sgepjmdsk vaccinationNOMS HealthcareStart: 06-15-2025 End: 81-14-0102AXG panel - Blood by Automated countCBC Lab Routine Diabetes mellitus screening Expected: 06/15/2025 (Approximate), Expires: 06/15/2026[facility] Work Phone: comment on above:Expected: 06/15/2025 (Approximate), Expires: 06/15/2026Start: 06-15-2025 End: 13-29-1475Siawklrcowo of glucose 1 hour after glucose challenge for glucose tolerance testGlucose tolerance, 1 hour Lab Routine Diabetes mellitus screening Expected: 06/15/2025 (Approximate), Expires: 06/15/2026NOMS HealthcareComment on above:Expected: 06/15/2025 (Approximate), Expires: 06/15/2026Start: 06-15-2025 End: 50-86-4289Uiopacx encounter procedureNOMS BCP OBComment on above:Arrived Start: 05-31-2025 End: 50-56-7045Cwqyuxyyqrso / ancillary services kchpqulxxr74/05/2025 8:30 AM EDT Ancillary Procedure [facility] OB [address] [place] [address] NOMS BCP OBStart: 05-18-2025 End: 11-59-3185Bpxhokk encounter fzlpgbtxi46/23/2025 3:30 PM EDT Routine [facility] OB [address] [place] [address] Munira Garcia PA [address] [place] [address] ArrivedNOMS BCP OBComment on above: ArrivedStart: 05-18-2025 End: 39-64-7077Mylgz fetoprotein, maternalAlpha fetoprotein, maternal Lab Routine 18 weeks gestation of ([facility]) Expected: 05/18/2025 (Approximate), Expires: 06/18/2025NOMS HealthcareComment on above:Expected: 05/18/2025 (Approximate), Expires: 06/18/2025Start: 05-18-2025 End: 81-29-6497CE for pregnancyUS OB 14+ weeks anatomy scan Imaging Routine Screening, , for anatomic survey ([facility]) Expected: 05/18/2025, Expires: 08/18/2025NOMS HealthcareComment on above:Expected: 05/18/2025, Expires: 08/18/2025Start: 05-04-2025 End: 15-98-6225Tauskrj encounter vbbkuxqsq94/09/2025 2:30 PM EDT Routine [facility] OB [address] [place] [address] Munira Garcia PA [address] [place], [place] [id number] NOMS BCP OBStart: 04-06-2025 End: 64-59-7365Hilvnft encounter procedureNOMS BCP OBComment on above:Arrived Start: 04-05-2025 End: 71-06-1184Rovxxum encounter procedureNOMS BCP OBComment on above:Arrived Start: 03-10-2025 End: 94-20-2679OXH/RhABO/Rh Lab Routine Missed menses , unspecified gestational age Expected: 03/10/2025 (Approximate), Expires: 03/10/2026NOMS HealthcareComment on above:Expected: 03/10/2025 (Approximate), Expires: 03/10/2026Start: 03-10-2025 End: 60-57-9910Qgsyt type and Indirect antibody screen panel - BloodType and screen Lab Routine Missed menses , unspecified gestational age Expected: 03/10/2025 (Approximate), Expires: 03/10/2026NOMS HealthcareComment on above:Expected: 03/10/2025 (Approximate), Expires: 03/10/2026Start: 03-10-2025 End: 95-29-4476Pfvic of abuse panel - Urine by Screen methodRapid drug screen, urine Lab Routine , unspecified gestational age Encounter for supervision of normal first in first trimester Expected: 03/10/2025 (Approximate), Expires: 03/10/2026NOMT HealthcareComment on above:Expected: 03/10/2025 (Approximate), Expires: 03/10/2026Start: 03-09-2025 End: 13-32-1742XL Pelvis transvaginalUS OB transvaginal Imaging Routine Missed menses Expected: 03/09/2025, Expires: 06/09/2025[facility] Work Phone: comment on above:Expected: 03/09/2025, Expires: 06/09/2025Start: 11-01-2024 End: 31-54-5427Gdkewrs encounter euwzuvrsc30/06/2025 1:20 PM EST Consult [address] [place] [address] Shania Antunez, DO [address] [place] [address] [facility] OBStart: 09-07-2024 End: 01-53-4704Ipdjidj encounter qbajqldrs62/12/2024 8:40 AM EST Office Visit N[facility] [address] [place] [address] Shania Antunez, DO [address] [place] [address] [facility] OBStart: 76-28-2236Bkqyumzbv vaccination Influenza Vaccine (#1)NOM HealthcareStart: 23-35-7073Tgmnhtszi B Vaccines (1 of 3 - 19+ 3-dose series)Hepatitis B Vaccines (1 of 3 - 19+ 3-dose series)NOM HealthcareStart: 32-68-8267Pvqmvavbgspd Vaccine: Pediatrics (0 to 5 Years) and At-Risk Patients (6 to 64 Years) (1 of 2 - PCV)Pneumococcal Vaccine: Pediatrics (0 to 5 Years) and At-Risk Patients (6 to 64 Years) (1 of 2 - PCV)NOM HealthcareStart: 21-92-6271Tregvwtsdhpqf B Vaccine (1 of 2 - Standard) Meningococcal B Vaccine (1 of 2 - Standard)NOM HealthcareStart: 46-21-3168EJS Vaccines (1 - 3-dose series)HPV Vaccines (1 - 3-dose series)[facility] Start: 09-98-0564Vabuvcm of varicella vaccinationVaricella Vaccines (1 of 2 - 13+ 2-dose series)NOM HealthcareStart: 71-24-9237TWrX/Tdap/Td Vaccines (1 - Tdap)DTaP/Tdap/Td Vaccines (1 - Tdap)NOM HealthcareStart: 98-54-7592AWA Vaccines (1 of 1 - Standard series)MMR Vaccines (1 of 1 - Standard series)[facility]Sc[facility] HospitalBacteria identified in Urine by CultureUrine culture Microbiology Routine Missed menses Ordered: 03/10/2025[facility] HealthcareComment on above: Ordered: 03/10/2025acteria identified in Urine by CultureUrine culture Microbiology Routine Cystitis Ordered: 07/13/2025[facility] HealthcareComment on above:Ordered: 07/13/2025BC W Auto Differential panel - BloodCBC and differential Lab Routine Missed menses , unspecified gestational age Ordered: 03/10/2025[facility] HealthcareComment on above:Ordered: 03/10/2025BC W Auto Differential panel - BloodCBC and differential Lab Routine 32 weeks gestation of ([facility]) Ordered: 08/25/2025[facility] Work Phone: comment on above:Ordered: 08/25/2025HLAMYDIA TRACHOMATIS (GENITO/STI)CHLAMYDIA TRACHOMATIS (GENITO/STI) Lab Routine Vaginal discharge Ordered: 05/18/2025[facility] HealthcareComment on above:Ordered: 05/18/2025 Hemoglobin A1c/Hemoglobin.total in BloodHemoglobin A1c Lab Routine Missed menses , unspecified gestational age Ordered: 03/10/2025[facility] Healthcare Comment on above:Ordered: 03/10/2025Hepatitis B virus surface Ag [Presence] in Serum or Plasma by ImmunoassayHepatitis B surface antigen Lab Routine Missed menses , unspecified gestational age Ordered: 03/10/2025[facility] Healthcare Comment on above:Ordered: 03/10/2025Hepatitis C virus Ab [Presence] in Serum or Plasma by ImmunoassayHepatitis C antibody Lab Routine Missed menses , unspecified gestational age Ordered: 03/10/2025[facility] HealthcareComment on above: Ordered: 03/10/2025HIV-1/HIV-2 antigen/antibody combination immunoassayHIV-1 and HIV-2 antibodies Lab Routine Missed menses , unspecified gestational age Ordered: 03/10/2025[facility] HealthcareComment on above:Ordered: 03/10/2025 Neisseria gonorrhoeae DNA [Presence] in Unspecified specimen by STEVO with probe detectionNeisseria gonorrhea DNA probe, direct Lab Routine Vaginal discharge Ordered: 05/18/2025[facility] HealthcareComment on above:Ordered: 05/18/2025 ProgesteroneProgesterone Lab Routine Hormone imbalance Ordered: 09/07/2024[facility] Work Phone: comment on above:Ordered: 09/07/2024eagin Ab [Presence] in Serum by RPRRPR Lab Routine Missed menses , unspecified gestational age Ordered: 03/10/2025[facility] HealthcareComment on above:Ordered: 03/10/2025Rubella antibody, IgGRubella antibody, IgG Lab Routine Missed menses , unspecified gestational age Ordered: 03/10/2025[facility] HealthcareComment on above:Ordered: 03/10/2025SURESWAB(R) ADVANCED VAGINITIS PLUS, TMASURESWAB(R) ADVANCED VAGINITIS PLUS, TMA Pathology and Cytology Routine Vaginal discharge Ordered: 05/18/2025[facility] Work Phone: comment on above:Ordered: 05/18/2025US Pelvis transvaginalUS OB transvaginal Imaging Routine Missed menses 03/10/2025 2:28 PM [facility] Healthcare Payers DatePayer CategoryPayerPolicy ID2023Medicaid [id number] 2023Medicaid (Managed Care) [id number] [id number] [id number] 2.16.840.1.830574.3.57[id number] 2.16.840.1.820509.3.57[id number] 2.16.840.1.295274.3.57[id number] 2.16.840.1.991920.3.57[id number] 2.16.840.1.495371.3.57[id number] 2.16.840.1.081911.3.57[id number] 2.16.840.1.493891.3.57[id number] 2.16.840.1.998880.3.57[id number] 2.16.840.1.333468.3.57[id number] 2.16.840.1.946892.3.57[id number] 2.16.840.1.573633.3.57[id number] 2.16.840.1.848513.3.57[id number] 2.16.840.1.551372.3.57[id number] 2.16.840.1.467054.3.57[id number] 2.16.840.1.033745.3.57[id number] 2.16.840.1.532367.3.57[id number] Social History DateTypeDetailFacilityStart: 12-30-2023 End: 01-49-7566Lwlfmho smoking status NHISNever smoked tobaccoNOMT Healthcare Start: 12-30-2023 End: 98-86-1728Dzatruc of Social functionNOMT HealthcareStart: 12-30-2023 End: 19-93-6953Tnmxguz use panelNOMT HealthcareStart: 45-62-3751Oro assigned at birthNot on fileNOMT HealthcareStart: 16-83-6692XjjohkmjmBQPH HealthcareStart: 83-94-3552Lsglyku use and exposureSmokeless tobacco non-userNOMT Healthcare Start: 04-05-2025 End: 32-42-3948Oanwlccbx beverage intakeLifetime non-drinker (finding)[facility] HealthcareStart: 51-80-3046VrmVxaopcGQOB HealthcareNEGATED: Highlighted row Start: NINFHistory of tobacco usePassive smokerNOMT Healthcare Functional Status IbxsDsfribzhagJrtsqlVljmswmq54-18-2992Azzlbss Health Questionnaire 2 item (PHQ- 2) [Reported][facility] Clinical Notes 09-07-2024 to 08-25-2025 Note Date & ZpqvUrxhEwzrmlxt68-72-1378 History of Present illness Narrative* Darlene Olmstead [...] 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) 12/30/2023 Exercise-induced asthma ([facility]) 12/30/2023 Patellofemoral syndrome of right knee 12/30/2023 PCOS (polycystic ovarian syndrome) 09/07/2024 Size of fetus inconsistent with dates, antepartum ([facility]) 08/10/2025 Resolved Ambulatory Problems Diagnosis Date Noted [...] nursing note reviewed. Exam conducted with a director fraud present. Vitals: Estimated body mass index is 28.97 kg/m as calculated from the following: Height as of 25: 5' 4 . Weight as of this encounter: 168 lb 12.8 oz. BP: 118/60 Patient's last menstrual period was 01/07/2025. Assessment/Plan ICD-10-CM 1. Third trimester ([facility]) Z34.93 2. 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) 12/30/2023 Exercise-induced asthma (HCC) 12/30/2023 Patellofemoral syndrome of right knee 12/30/2023 PCOS (polycystic ovarian syndrome) 09/07/2024 Size of fetus inconsistent with dates, antepartum ([facility]) 08/10/2025 Resolved Ambulatory Problems Diagnosis Date Noted [...] & PLAN ICD-10-CM 1. Third trimester ([facility]) Z34.93 POCT urinalysis dipstick manually resulted 2. 30 weeks gestation of ([facility]) Z3A.30 Return OB: Patient presents [...] surgical history on file. documented in this encounterBarnes-Jewish HospitalFbhvnooecd91-80-4331 History of Present illness Narrative* Darlene Olmstead [...] nursing note reviewed. Exam conducted with a director fraud present. Vitals: Estimated body mass index is 28.84 kg/m as calculated from the following: Height as of 04/05/25: 5' 4 . Weight as of this encounter: 168 lb. BP: 112/70 Patient's last menstrual period was 01/07/2025. ASSESSMENT & PLAN ICD-10-CM 1. Anemia, unspecified type D64.9 iron polysaccharides (ProFe) 391.3 (180 Fe) MG capsule 2. 28 weeks gestation of ([facility]) Z3A.28 POCT urinalysis dipstick manually resulted 3. Third trimester ([facility]) Z34.93 4. Elevated glucose tolerance test [...] of: Darlene Olmstead NP documented in this encounterBarnes-Jewish HospitalOfmqdbvsxs67-57-4279 History of Present illness Narrative* Darlene Olmstead [...] nursing note reviewed. Exam conducted with a director fraud present. Vitals: Estimated body mass index is 28.69 kg/m as calculated from the following: Height as of 04/05/25: 5' 4 . Weight as of this encounter: 167 lb 1.9 oz. BP: 120/68 Patient's last menstrual period was 01/07/2025. ASSESSMENT & PLAN ICD-10-CM 1. Cystitis N30.90 nitrofurantoin, macrocrystal-monohydrate, (Macrobid) 100 MG capsule Urine culture 2. 26 weeks gestation of ([facility]) Z3A.26 POCT urinalysis dipstick manually resulted 3. Second trimester ([facility]) Z34.92 POCT urinalysis dipstick manually resulted US OB follow up transabdominal approach 4. Gastroesophageal reflux in ([facility]) O99.619 omeprazole (PriLOSEC) [address] capsule [...] of: Shania Antunez DO documented in this encounterBarnes-Jewish HospitalBhngzyihon45-38-3583 History of Present illness Narrative* SPIKE Guzman [...] PLAN ICD-10-CM 1. 22 weeks gestation of ([facility]) Z3A.22 POCT urinalysis dipstick manually resulted 2. Second trimester ([facility]) Z34.92 POCT urinalysis dipstick manually [...] of: Shania Antunez DO documented in this encounterBarnes-Jewish HospitalFdsliearvs24-47-0748 History of Present illness Narrative* SPIKE Guzman [...] ICD-10-CM 1. Screening, , for anatomic survey ([facility]) Z36.89 US OB 14+ weeks anatomy scan US OB 14+ weeks anatomy scan 2. STD exposure Z20.2 3. Vaginal discharge N89.8 SURESWAB(R) ADVANCED VAGINITIS PLUS, TMA CHLAMYDIA TRACHOMATIS (GENITO/STI) Neisseria gonorrhea DNA probe, direct 4. Second trimester ([facility]) Z34.92 5. 18 weeks gestation of ([facility]) Z3A.18 POCT urinalysis dipstick manually resulted Alpha [...] behalf of: SPIKE Guzman documented in this encounterBarnes-Jewish HospitalQdmhjupzee31-22-6915 History of Present illness Narrative* Shania Antunez [...] nursing note reviewed. Exam conducted with a director fraud present. Vitals: Estimated body mass index is [...] of: Shania Antunez DO documented in this encounterBarnes-Jewish HospitalTpkvlnmrur09-91-9954 History of Present illness Narrative* Jose Antonio [...] your allergy medication. You reported that the [employer] said you could take zyrtec for your allergies. Continue on this medication. The medication should help with the fluid in the inner ear. No follow-ups on file. 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) 12/30/2023 Exercise-induced asthma ([facility]) 12/30/2023 Patellofemoral syndrome of right knee 12/30/2023 [...] nursing note reviewed. Exam conducted with a director fraud present. Vitals: Estimated body mass index is [...] note* Diagnosis Screening, , for anatomic survey ([facility]) Encounter for anatomic survey STD exposure Vaginal discharge Leukorrhea, not specified as infective Second trimester ([facility]) state, incidental 18 weeks gestation of ([facility]) documented in this encounter [facility] HealthcareEvaluation note* Diagnosis 22 weeks gestation of ([facility]) Second trimester ([facility]) state, incidental Diabetes mellitus screening Screening for diabetes mellitus documented in this encounter [facility] HealthcareEvaluation note* Diagnosis Cystitis- Primary Unspecified cystitis 26 weeks gestation of ([facility]) Second trimester ([facility]) state, incidental Gastroesophageal reflux in ([facility]) documented in this encounter [facility] HealthcareEvaluation note* Diagnosis Anemia, unspecified type- Primary 28 weeks gestation of ([facility]) Third trimester ([facility]) state, incidental Elevated glucose tolerance test Impaired glucose tolerance test documented in this encounter [facility] HealthcareEvaluation note* Diagnosis Third trimester ([facility]) state, incidental 30 weeks gestation of ([facility]) documented in this encounter [facility] HealthcareEvaluation note* Diagnosis Urinary tract infection without hematuria, site unspecified- Primary Third trimester ([facility]) state, incidental 32 weeks gestation of ([facility]) documented in this encounter [facility] Summary Purpose Family History No Family History Records FoundNo Family History Records Found Advance Directives No Advanced Directives Records FoundNo Advanced Directives Records Found Additional Source Comments INFORMATION SOURCE (unrecogn ized section and content) DATE CREATED AUTHOR 01/04/2022 [facility] DATE CREATED AUTHOR AUTHOR'S ORGANIZ ATION 08/27/2025 [facility] EPIC Care Teams (unrecognized sec tion and content) Team MemberRelationshipSpecialtyStart DateEnd Date Eliana Marquis MD [address] [facility] [address] [place] [address] [facility] - [facility]/04/23 Jose Antonio Hernandes NP [address] [facility] [address] [place] [address] PCP - [facility]07/27/24Team MemberRelationshipSpecialtyStart DateEnd Date Eliana Marquis MD [address] [place] [address] PCP - [facility]03/04/23 Jose Antonio Hernandes, ROLL SHEETING CUTTER [address] [place] [address] [facility] - [facility]07/27/24Team MemberRelationshipSpecialtyStart DateEnd Date Eliana Marquis MD [address] [place] [address] [facility]03/04/23Te MemberRelationshipSpecialtyStart DateEnd Date Eliana Marquis MD [address] [place] [address] [facility]03/04/23 Jose Antonio Hernandes, ROLL SHEETING CUTTER [address] [place] [address] [facility]07/27/24Team MemberRelationshipSpecialtyStart DateEnd Date Eliana Marquis MD [address] [place] [address] [facility]03/04/23 Jose Antonio Hernandes, ROLL SHEETING CUTTER [address] [place] [address] [facility]07/27/24Team MemberRelationshipSpecialtyStart DateEnd Date Eliana Marquis MD [address] [place] [address] [facility]03/04/23 Jose Antonio Hernandes, ROLL SHEETING CUTTER [address] [place] [address] [facility]07/27/24Team MemberRelationshipSpecialtyStart DateEnd Date Eliana Marquis MD [address] [place] [address] [facility]03/04/23 Jose Antonio Hernandes, ROLL SHEETING CUTTER [address] [place] [address] [facility]07/27/24Team MemberRelationshipSpecialtyStart DateEnd Date Eliana Marquis MD [address] [place] [address] [facility]03/04/23 Jose Antonio Hernandes, ROLL SHEETING CUTTER [address] [place] [address] [facility]07/27/24Team MemberRelationshipSpecialtyStart DateEnd Date Eliana Marquis MD [address] [place] [address] [facility]03/04/23 Jose Antonio Hernandes, ROLL SHEETING CUTTER [address] [place] [address] [facility]07/27/24Team MemberRelationshipSpecialtyStart DateEnd Date Eliana Marquis MD [address] [place] [address] PCP - [facility]Family Medicine03/04/23Team MemberRelationshipSpecialtyStart DateEnd Date Eliana Marquis MD [address] [place] [address] PCP - GeneralFamily Medicine03/04/23Team MemberRelationshipSpecialtyStart DateEnd Date Eliana Marquis MD [address] [place] [address] PCP - GeneralFamily Medicine03/04/23Team MemberRelationshipSpecialtyStart DateEnd Date Eliana Marquis MD [address] [place] [address] PCP - GeneralFamily Medicine03/04/23Team MemberRelationshipSpecialtyStart DateEnd Date Eliana Marquis MD [address] [place] [address] PCP - GeneralFamily Medicine03/04/23Team MemberRelationshipSpecialtyStart DateEnd Date Eliana Marquis MD [address] [place] [address] PCP - GeneralFamily Medicine03/04/23Team MemberRelationshipSpecialtyStart DateEnd Date Eliana Marquis MD [address] [place] [address] PCP - GeneralFamily Medicine03/04/23Team MemberRelationshipSpecialtyStart DateEnd Date Eliana Marquis MD [address] [place] [address] PCP - GeneralFamily Medicine03/04/23Team MemberRelationshipSpecialtyStart DateEnd Date Eliana Marquis MD [address] [facility] [address] [place] [address] PCP - GeneralFamily Medicine03/04/23 Jose Antonio Hernandes NP [address] [facility] [address] [place] [address] PCP - [facility]//Team MemberRelationshipSpecialtyStart DateEnd Date Eliana Marquis MD [address] [facility] [address] [place] [address] [facility]03/04/23Team MemberRelationshipSpecialtyStart DateEnd Date Eliana Marquis MD [address] [facility] [address] [place] [address] [facility]03/04/23Team MemberRelationshipSpecialtyStart DateEnd Date Eliana Marquis MD [address] [facility] [address] [place] [address] [facility]03/04/23Team MemberRelationshipSpecialtyStart DateEnd Date Eliana Marquis MD [address] [facility] [address] [place] [address] [facility]CP - [facility]03/04/23 Reason for Visit [...] BE BASED ON THE PRIMARY CLINICAL RECORDS. [facility] [employer] [facility]. provides no warranty or guarantee of the accuracy or completeness of information in this document.
--- NOTE | 2025-10-06 15:34 | US_ITS ---
[place] [id number] Patient Name: DANETTE AYALA MRN: [facility]:[id number] date: 2005 Sex: F Assigned Patient Location: [facility] Current Patient Location: [facility] Accession/Order Number: [id number] Exam Date: 10/06/2025 15:40 Report Date: 10/06/2025 17:07 At the request of: JEANNINE SHARPE MD Procedure: US OB BPP w non-stress Ultrasound biophysical profile INDICATION: Decreased movements COMPARISON: 09/30/2025 FINDINGS/ IMPRESSION: Fetus is cephalic position.. cardiac activity 145 beats per minutes. KURTIS: 14.7 cm. Biophysical profile score 8/8. Impression dictated by: Marvel Encinas M.D. 10/06/2025 5:07 PM Dictation Location: [place] [address] Electronically authenticated by: [id number] Y Date: 10/06/2025 17:07
--- NOTE | 2025-10-06 15:41 | NUTR.NU ---
1530: Patient arrives from office with c/o falling on ice yesterday and having decreased movement today. To room 250. US notified. 1542: US at bedside for BPP.
[2025-10-06 16:48] VITALS: BP 100/52; PULSE 75
== END 2025-10-06 17:20 | disposition home or self-care (01) ==
LOC: FBCO 15:26 → FBC 15:33
PROVIDERS: PCP Family Medicine; Visit Provider Obstetrics & Gynecology
DX: O36.8190 Decreased fetal movements, unspecified trimester, not applicable or unspecified (principal)
CPT/HCPCS: 76818

== ENCOUNTER 2025-10-10 14:04 | Outpatient (RCR) | payer OTHER, SELFPAY ==
[2025-09-28 13:58] VITALS: BP 99/46; PULSE 79; TEMP 36.8; O2SAT 98
[2025-09-28] MEDS: IRON SUCROSE COMPLEX 100 MG in 0.9 % SODIUM CHLORIDE 100 ML 420 MG IV (14:06)
[2025-09-30 14:01] VITALS: BP 110/72; PULSE 92; TEMP 36.7; O2SAT 97
[2025-09-30] MEDS: IRON SUCROSE COMPLEX 200 MG in 0.9 % SODIUM CHLORIDE 100 ML 220 MG IV (14:10)
[2025-09-30] MEDS: 0.9 % SODIUM CHLORIDE 1,000 ML 1000 ML IV (14:15)
--- NOTE | 2025-09-30 14:21 | PC.NURSE ---
1412 said she didn't feel well like she was going to pass out. nauseated, stopped venofer. ns initiated. denies itching or shortness of breath. BP unable to obtain with NIBP, manual bp 84//50 P 74. laid supine in recliner, pale, skin warm and dry. NS wide open. 1415 87/60 P 66, SP02 99%. states feeling somewhat better, nausea better. 1420 115/73 P65 head of chair elevated partially, remain pallor, but warm and dry, alert oriented. 1430 eating snack of crackers and water. 96/47 P72 R 16 Ags958 on room air.
[2025-09-30 14:43] VITALS: BP 94/56; PULSE 63; O2SAT 5
--- NOTE | 2025-09-30 14:44 | PC.NURSE ---
sitting semi reclined, eating snack, states feeling back to normal. put in sitting up position, encouraged to notify staff if feels faint etc. significant other at chairside.
[2025-09-30 14:47] VITALS: BP 100/68; PULSE 72; O2SAT 95
--- NOTE | 2025-09-30 14:48 | PC.NURSE ---
states feeling normal while in sitting position, skin warm dry, respirations with ease, no nausea. NS continues to infuse at 999 ml/hr.
--- NOTE | 2025-09-30 14:55 | PC.NURSE ---
Dr. Antunez notified of above documentation, patient back to baseline, orders received. 1455 IV venofer restarted along with NS IV fluids, patient informed to notify staff immediately if any adverse side effects, nausea, light headedness, dizzines itching etc were to start, patient and significant other verbalizes understanding.
[2025-09-30 15:21] VITALS: BP 104/68; PULSE 70; TEMP 36.6; O2SAT 96
[2025-10-03 14:01] VITALS: BP 110/71; PULSE 81; TEMP 36.2; O2SAT 98
[2025-10-03] MEDS: IRON SUCROSE COMPLEX 200 MG in 0.9 % SODIUM CHLORIDE 100 ML 220 MG IV (15:09)
[2025-10-05 14:00] VITALS: BP 106/68; PULSE 82; TEMP 36.6; O2SAT 98
[2025-10-05] MEDS: IRON SUCROSE COMPLEX 100 MG in 0.9 % SODIUM CHLORIDE 100 ML 420 MG IV (14:17)
[2025-10-07 14:15] VITALS: BP 109/68; PULSE 76; TEMP 36.1; O2SAT 98
[2025-10-07] MEDS: IRON SUCROSE COMPLEX 200 MG in 0.9 % SODIUM CHLORIDE 100 ML 220 MG IV (14:23)
[2025-10-10 14:11] VITALS: BP 92/61; PULSE 66; TEMP 36.4; O2SAT 99
[2025-10-10] MEDS: IRON SUCROSE COMPLEX 200 MG in 0.9 % SODIUM CHLORIDE 100 ML 220 MG IV (14:21)
== END 2025-10-26 23:59 | disposition home or self-care (01) ==
LOC: INF 14:04
PROVIDERS: PCP Family Medicine; Visit Provider Obstetrics & Gynecology
DX: O99.019 Anemia complicating pregnancy, unspecified trimester (principal); D64.9 Anemia, unspecified; Z3A.00 Weeks of gestation of pregnancy not specified
CPT/HCPCS: 96365; 96374; J1756

== ENCOUNTER 2025-10-11 13:01 | Outpatient (OUT) | payer OTHER, SELFPAY ==
--- OUTSIDE RECORDS SUMMARY | 2024-08-16 09:00 | XMS_ITS ---
Author Organization [facility] Address [address] [place] [address] Care Team Providers Care Content Coordinator Name Role Phone Bethany Wells Primary Care Provider Charlee Lawrence Unavailable [phone] REASON FOR VISIT 6 MONTHS Encounters Encounter Location Date Provider Diagnosis [facility] [address] [place] [address] 08/16/2024 Charlee Keithgamaliel Plan Of Treatment No Information Progress Notes * BDOB:11/2004 (20 yo F)Acc No.[id number]:08/16/2024 Patient:?LUCY :?Charlee LawrenceDOB:2005???Age:18 Y???Sex: FemaleDate:08/16/2024hone:[phone]:SUDHEER YU [id number]:Bethany Guerrero Subjective: * Chief Complaints: * 6 MONTHS * Electronic signature of Charlee Lawrence on 10/11/2025 at 01:04 PM ESTSign off status: Pending * Provider: Dru Lawrence Date: Generated for Printing/Faxing/eTransmitting on:?10/11/2025 01:04 PM EST
--- OUTSIDE RECORDS SUMMARY | 2025-04-27 05:00 | XMS_ITS ---
Author Organization [facility] Address [address] [place] [address] Care Team Providers Care Supervisor Patching Name Role Phone Bethany Wells Primary Care Provider [phone] Dr. Adolfo Reagan [facility] [phone] REASON FOR VISIT JAW AND TOOTH PAIN Encounters Encounter Location Date Provider Diagnosis [facility] [address] [place] [address] 04/27/2025 Adolfo Reagan Plan Of Treatment No Information Progress Notes * BDOB:11/2004 (20 yo F)Acc No.[id number]:04/27/2025 Patient:? :Yelena Reagan DDSDOB:2005???Age:19 Y???Sex: FemaleDate:04/27/2025Phone:[phone]:SUDHEER YU [id number]:Bethany Guerrero Subjective: * Chief Complaints: * J AW AND TOOTH PAIN Billing Information: * Procedure Codes: * Electronic signature of Dr. Adolfo Reagan , [facility], [id number] on 10/11/2025 at 01:05 PM ESTSign off status: Pending * Provider: Parrish Reagan DDS Date: 0 04/27/2025 Generated for Printing/Faxing/eTransmitting on:?10/11/2025 01:05 PM EST
--- OUTSIDE RECORDS SUMMARY | 2025-05-10 05:00 | XMS_ITS ---
Author Organization [facility] Address [address] [place] [address] Care Team Providers Care Screw Machine Hand Name Role Phone Bethany Wells Primary Care Provider [phone] Dr. Adolfo Reagan [facility] [phone] REASON FOR VISIT JAW AND TOOTH PAIN Encounters Encounter Location Date Provider Diagnosis [facility] [address] [place] [address] 05/10/2025 Adolfo Reagan Plan Of Treatment No Information Progress Notes * BDOB:11/2004 (20 yo F)Acc No.[id number]:05/10/2025 Patient:? :Yelena Reagan DDSDOB:2005???Age:19 Y???Sex: FemaleDate:05/10/2025Phone:[phone]:SUDHEER YU [id number]:Bethany Guerrero Subjective: * Chief Complaints: * J AW AND TOOTH PAIN * Electronic signature of Dr. Adolfo Reagan , [facility], [id number] on 10/11/2025 at 01:04 PM ESTSign off status: Pending * Provider: Parrish Reagan DDS Date: 0 05/10/2025 Generated for Printing/Faxing/eTransmitting on:?10/11/2025 01:04 PM EST
--- OUTSIDE RECORDS SUMMARY | 2025-09-27 10:00 | XMS_ITS | Encounter Summary ---
Author Organization [facility] Address [address] [place] [address] Care Team Providers Care Training And Quality Manager Name Role Phone Eliana Flanagan MD Primary Care Provider [phone] Encounter Details DateTypeDepartmentCare Team (Latest Contact Info)Wzsaihdqnyl02/02/2025 10:00 AM ESTAncillary Procedure [facility] [facility] [address] [place] [address] [place] [address] Poor growth affecting management of mother in third trimester, single or unspecified fetus ([facility]) Social History Tobacco UseTypesPacks/DayYears UsedDateSmoking Tobacco: NeverPassive Smoke Exposure: NeverSmokeless Tobacco: NeverAlcohol UseStandard Drinks/WeekComments Never0 (1 standard drink = 0.6 oz pure alcohol)PHQ-2AnswerDate RecordedPatient Health Questionnaire-2 Kokhk519Estimated Date of Delivery MopjofskTbh46/19/2025Based on last menstrual period of 01/07/2025Sex and Gender InformationValueDate RecordedSex Assigned at BirthNot on fileLegal SexFemale 01/08/2023 6:51 PM EDTGender IdentityNot on fileSexual OrientationNot on file documented as of this encounter Plan of Treatment Not on file documented as of this encounter Procedures Procedure NamePriorityDate/TimeAssociated DiagnosisCommentsUS OB FOLLOW UP TRANSABDOMINAL FIIFOCXEYjpqdfs01/02/2025 10:34 AM EST Poor growth affecting management of mother in third trimester, single or unspecified fetus ([facility]) documented in this encounter Results * US OB follow up transabdominal approach (09/27/2025 10:34 AM EST)Anatomical RegionLateralityModalityBodyUltrasoundSpecimen (Source)Anatomical Location / LateralityCollection Method / VolumeCollection TimeReceived Time09/27/2025 12:27 PM EST Impressions 09/27/2025 12:56 PM EST Single, live intrauterine , current sonographic age of 35 weeks and 3 days, with an estimated date of delivery of October 29, 2025 (prior FRED October 15, 2025). * ??Estimated Weight (g) by Percentile is based upon an accurate estimated age based onlast menstrual period. ?? TRANSCRIBED BY: ? ELECTRONICALLY SIGNED BY: Adolfo Camp MD Narrative 09/27/2025 12:56 PM EST FINDINGS: Comparison August 11, 2025. A single, live intrauterine is present with normal cardiac rate of 144 beats per minute. Normal activity and amniotic fluid volume. Amniotic fluid index is 11 cm. ??Morphology is grossly normal. The current sonographic age is 35 weeks and 3 days, based on the following measurements: ?BPD ? 8.8 cm (35 weeks, 4 days) ?Head Circumference ?33.0 cm (37 weeks, 4 days) ?Abdominal Circumference ?30.8 cm (34 weeks, 5 days) ?Femur Length ?6.8 cm (35 weeks, 0 days) ?Presentation ? Cephalic ? Weight (g) by Percentile ??9.1 % * (prior 18.7%) These measurements result in an estimated date of delivery of October 29, 2025. ??The current estimated weight is 2614 grams (5 pounds, 12 ounces). ?? Procedure Note Adolfo Camp MD - 09/27/2025 FINDINGS: Comparison August 11, 2025. A single, live intrauterine is present with normal cardiacrate of 144 beats per minute. Normal activity and amniotic fluidvolume. Amniotic fluid index is 11 cm. Morphology is grossly normal. Thecurrent sonographic age is 35 weeks and 3 days, based on the followingmeasurements: BPD 8.8 cm (35 weeks, 4 days) Head Circumference 33.0 cm (37 weeks, 4 days) Abdominal Circumference 30.8 cm (34 weeks, 5 days) Femur Length 6.8 cm (35 weeks, 0 days) Presentation Cephalic Weight (g) by Percentile 9.1 % * (prior 18.7%) These measurements result in an estimated date of delivery of October. The current estimated weight is 2614 grams (5 pounds, 12ounces). IMPRESSION: Single, live intrauterine , current sonographic age of 35 weeksand 3 days, with an estimated date of delivery of October 29, 2025 (priorEDD October 15, 2025). * Estimated Weight (g) by Percentile is based upon an accurateestimated age based on last menstrual period. TRANSCRIBED BY: ELECTRONICALLY SIGNED BY: Adolfo Camp MD Authorizing ProviderResult TypeResult StatusAmy Overton [facility] OB US PROCEDURES Final Result documented in this encounter Visit Diagnoses Diagnosis Poor growth affecting management of mother in third trimester, single or unspecified fetus ([facility]) documented in this encounter Care Teams Team MemberRelationshipSpecialtyStart DateEnd Date Eliana Flanagan MD [address] [place] [address] [address] [place] [address] PCP - GeneralFamily Medicine03/04/23documented as of this encounter
--- OUTSIDE RECORDS SUMMARY | 2025-09-27 11:00 | XMS_ITS | Encounter Summary ---
Author Organization [facility] Address [address] [facility] [place] [address] Care Team Providers Care Lead Handler Name Role Phone Eliana Flanagan MD Primary Care Provider [phone] Reason for Visit * ReasonCommentsRoutine Visit Encounter Details DateTypeDepartmentCare Team (Latest Contact Info)Tllvnfnhmxx01/02/2025 11:00 AM ESTRoutine [facility] [place] [facility] [address] [facility] [place] [phone] Alex Antunez DO [address] [facility] [address] [place], [facility] Third trimester ([facility]); 37 weeks gestation of ([facility]); Poor growth affecting management of mother, antepartum, single or unspecified fetus ([facility]) Social History Tobacco UseTypesPacks/DayYears UsedDateSmoking Tobacco: NeverPassive Smoke Exposure: NeverSmokeless Tobacco: NeverAlcohol UseStandard Drinks/WeekComments Never0 (1 standard drink = 0.6 oz pure alcohol)PHQ-2AnswerDate RecordedPatient Health Questionnaire-2 Zhqjd188Estimated Date of Delivery CnnlrynuFpj64/19/2025Based on last menstrual period of 01/07/2025Sex and Gender InformationValueDate RecordedSex Assigned at BirthNot on fileLegal SexFemale 01/08/2023 6:51 PM EDTGender IdentityNot on fileSexual OrientationNot on file documented as of this encounter Last Filed Vital Signs Vital SignReadingTime TakenCommentsBlood Tpohfomw448/6012 10:49 AM EST Pulse--Temperature--Respiratory Rate--Oxygen Saturation--Inhaled Oxygen Concentration--Cnkmzu56.1 kg (170 lb)09/27/2025 10:49 AM ESTHeight--Body Mass Index29.1806 11:07 AM EDTdocumented in this encounter Progress Notes * Adela Zamarripa LPN - 09/27/2025 11:00 AM EST Reason for Appointment: Patient ID: Roopa is a 20 y.o. female who presents for Routine Visit Patient presents today for Return OB appointment. MEDICATIONS Current Outpatient Medications Medication Instructions diphenhydrAMINE (BENADRYL) 50 mg, Nightly PRN magnesium oxide (MAG-OX) 400 mg, Daily omeprazole (PRILOSEC) 20 mg, Oral, Daily [...] inconsistent with dates, antepartum ([facility]) 08/10/2025 Resolved Ambulatory Problems Diagnosis Date Noted [...] nursing note reviewed. Exam conducted with a out and out cigar maker hand present. Vitals: Estimated body mass index is 29.18 kg/m?? as calculated from the following: Height as of 04/05/25: 5' 4 . Weight as of this encounter: 170 lb. BP: 110/60 Patient's last menstrual period was 01/07/2025. Assessment/Plan ICD-10-CM 1. Third trimester ([facility]) Z34.93 2. 37 weeks gestation of ([facility]) Z3A.37 POCT urinalysis dipstick manually resulted Assessment/Plan Return OB: Patient presents today for a routine obstetrics appointment. Patient is currently 37w4d . Patient states she is doing well [...] documented in this encounter Plan of Treatment NameTypePriorityAssociated DiagnosesOrder ScheduleUS biophysical profile w non stress testImagingRoutine Poor growth affecting management of mother, antepartum, single or unspecified fetus ([facility]) Expected: 09/28/2025 (Approximate), Expires: 03/29/2026documented as of this encounter Procedures Procedure NamePriorityDate/TimeAssociated DiagnosisCommentsPOCT URINALYSIS ESXWCGTXUiwmsno81/02/2025 10:50 AM EST 37 weeks gestation of ([facility]) documented in this encounter Results * POCT urinalysis dipstick manually resulted (09/27/2025 10:50 AM EST)Component ValueRef RangeTest MethodAnalysis TimePerformed AtPathologist SignatureColor, UAYellowClarity, UAClearGlucose, UANegativeNegative - 2000(110) ++++ mg/dL Bilirubin, UANegativeNegative - 4(70) +++ mg/dLKetones, UANegativeNegative - 160(16) ++++ mg/dLSpec Grav, UA1.0101 - 1.03Blood, UANegativeNegative - 50 Tarun/mcLpH, UA6.05 - 9Protein, UANegativeNegative - 2000(20) ++++ mg/dL Urobilinogen, UA1.00.2 - 12 mg/dLLeukocytes, UANegativeNegative - 500+++ Joelle/mcLNitrite, UANegativeNegative - PositiveSpecimen (Source)Anatomical Location / LateralityCollection Method / VolumeCollection TimeReceived Time Urine09/27/2025 10:50 AM EST Narrative Authorizing ProviderResult TypeResult StatusCoredoreen Antunez DOPOINT OF CARE TEST ENTER/EDIT ORDERABLESFinal Result documented in this encounter Visit Diagnoses Diagnosis Third trimester ([facility]) state, incidental 37 weeks gestation of ([facility]) Poor growth affecting management of mother, antepartum, single or unspecified fetus ([facility]) documented in this encounter Care Teams Team MemberRelationshipSpecialtyStart DateEnd Date Eliana Flanagan MD [address] [place] [address] PCP - GeneralFamily Medicine03/04/23documented as of this encounter
--- OUTSIDE RECORDS SUMMARY | 2025-10-06 14:40 | XMS_ITS | Encounter Summary ---
Author Organization [facility] Address [address] [facility] [place] [address] Care Team Providers Care Dispatcher Service Name Role Phone Eliana Flanagan MD Primary Care Provider [phone] Reason for Visit * ReasonCommentsRoutine Visit Encounter Details DateTypeDepartmentCare Team (Latest Contact Info)Cphxszeclcu09/11/2025 2:40 PM ESTRoutine [facility] [address] [place] [address] Darlene Olmstead, PLASTIC AND RECONSTRUCTIVE SURGEON [address] [place] [address] Third trimester ([facility]); 38 weeks gestation of ([facility]) Social History Tobacco UseTypesPacks/DayYears UsedDateSmoking Tobacco: NeverPassive Smoke Exposure: NeverSmokeless Tobacco: NeverAlcohol UseStandard Drinks/WeekComments Never0 (1 standard drink = 0.6 oz pure alcohol)PHQ-2AnswerDate RecordedPatient Health Questionnaire-2 Cdrvt220Estimated Date of Delivery SeeyfsxlFdl75/19/2025Based on last menstrual period of 01/07/2025Sex and Gender InformationValueDate RecordedSex Assigned at BirthNot on fileLegal SexFemale 01/08/2023 6:51 PM EDTGender IdentityNot on fileSexual OrientationNot on file documented as of this encounter Last Filed Vital Signs Vital SignReadingTime TakenCommentsBlood Ybtyznae961/6210/06/2025 2:50 PM EST Pulse--Temperature--Respiratory Rate--Oxygen Saturation--Inhaled Oxygen Concentration--Lvapfg95.7 kg (169 lb)10/06/2025 2:50 PM ESTHeight--Body Mass Index29.01004/05/2025 11:07 AM EDTdocumented in this encounter Progress Notes * Darlene Olmstead NP - 10/06/2025 2:40 PM EST Reason for Appointment: Patient ID: [...] Size of fetus inconsistent with dates, antepartum ([facility]) 08/10/2025 Resolved Ambulatory Problems Diagnosis Date Noted [...] nursing note reviewed. Exam conducted with a boarding house manager present. Vitals: Estimated body mass index is 29.18 kg/m?? as calculated from the following: Height as of 04/05/25: 5' 4 . Weight as of 09/27/25: 170 lb. BP: Patient's last menstrual period was 01/07/2025. ASSESSMENT & PLAN ICD-10-CM 1. Third trimester ([facility] Z34.93 2. 38 weeks gestation of ([facility]) Z3A.38 POCT urinalysis dipstick manually resulted Assessment/Plan Return OB: Patient presents today for a routine obstetrics appointment. Patient is currently 38w6d . Patient states she is doing well but had a slip and fall on her knees yesterday during the snowy weather. She did not have blunt trauma to her abdomen, but did state that she has had concerns for decreased movement. Given decreased movement I spoke with labor and delivery and they aware that she will need to be evaluated now with NST/BPP and patient is leaving our office and will present to labor and delivery. She does not have any vaginal bleeding, discharge or abdominal pain Pretermlabor precautions was discussed/given and patient was instructed to perform kick counts three times a day. Orders Placed This Encounter Procedures POCT urinalysis dipstick manually resulted Follow Up: Patient is to return to office in 1 week for routine OB appointment. Documented by Daija Britt CST on behalf of: Darlene Olmstead NP documented in this encounter Plan of Treatment Not on file documented as of this encounter Visit Diagnoses Diagnosis Third trimester ([facility]) state, incidental 38 weeks gestation of ([facility]) documented in this encounter Care Teams Team MemberRelationshipSpecialtyStart DateEnd Date Eliana Flanagan MD [address] [place] [address] PCP - GeneralFamily Medicine03/04/23documented as of this encounter
--- OUTSIDE RECORDS SUMMARY | 2025-10-10 13:20 | XMS_ITS | Encounter Summary ---
Author Organization [facility] Address [address] [facility] [place] [address] Care Team Providers Care Senior Animal Trainer Name Role Phone Eliana Flanagan MD Primary Care Provider [phone] Reason for Visit * ReasonCommentsRoutine Visit Encounter Details DateTypeDepartmentCare Team (Latest Contact Info)Qiqfngmddij53/15/2025 1:20 PM ESTRoutine [facility] [address] [place] [phone] Alex Antunez DO [address] Umm Willard, [facility]11 Third trimester ([facility]); 39 weeks gestation of ([facility]) Social History Tobacco UseTypesPacks/DayYears UsedDateSmoking Tobacco: NeverPassive Smoke Exposure: NeverSmokeless Tobacco: NeverAlcohol UseStandard Drinks/WeekComments Never0 (1 standard drink = 0.6 oz pure alcohol)PHQ-2AnswerDate RecordedPatient Health Questionnaire-2 Wpxqp936Estimated Date of Delivery VsmhubwgVkx04/19/2025Based on last menstrual period of 01/07/2025Sex and Gender InformationValueDate RecordedSex Assigned at BirthNot on fileLegal SexFemale 01/08/2023 6:51 PM EDTGender IdentityNot on fileSexual OrientationNot on file documented as of this encounter Last Filed Vital Signs Vital SignReadingTime TakenCommentsBlood Wvtkbxan213/7010/10/2025 1:36 PM EST Pulse--Temperature--Respiratory Rate--Oxygen Saturation--Inhaled Oxygen Concentration--Bnmbga87.6 kg (171 lb)10/10/2025 1:36 PM ESTHeight--Body Mass [...] Size of fetus inconsistent with dates, antepartum ([facility]) 08/10/2025 Resolved Ambulatory Problems Diagnosis [...] nursing note reviewed. Exam conducted with a hog sawyer present. Vitals: Estimated body mass index is 29.35 kg/m?? as calculated from the following: Height as of 25: 5' 4 . Weight as of this encounter: 171 lb. BP: 112/70 Patient's last menstrual period was 01/07/2025. Assessment/Plan ICD-10-CM 1. Third trimester ([facility]) Z34.93 2. 39 weeks gestation of ([facility]) Z3A.39 POCT urinalysis dipstick manually [...] this encounter Procedures Procedure NamePriorityDate/TimeAssociated DiagnosisCommentsPOCT URINALYSIS YYYPARDNDirkemc27/15/2025 1:42 PM EST 39 weeks gestation of ([facility]) documented in this encounter Results [...] / LateralityCollection Method / VolumeCollection Time Received InydMjjle98/15/2025 1:42 PM EST Narrative Authorizing ProviderResult TypeResult StatusCorey Tulio DOPOINT OF CARE TEST ENTER/EDIT ORDERABLESFinal Result documented in this encounter Visit Diagnoses Diagnosis Third trimester ([facility]) state, incidental 39 weeks gestation of ([facility]) documented in this encounter Care Teams Team MemberRelationshipSpecialtyStart DateEnd Date Eliana Flanagan MD [address] [facility] [address] [place] [address] PCP - GeneralFamily Medicine03/04/23documented as of this encounter
--- OUTSIDE RECORDS SUMMARY | 2025-10-11 13:04 | XMS_ITS | Encounter Summary ---
Author Organization [facility] Address [address] [place] [address] Care Team Providers Care Assembler Fitter Name Role Phone Eliana Marquis MD Primary Care Provider [phone] Encounter Details DateTypeDepartmentCare Team (Latest Contact Info)Twdpxpeztjf32/11/2025linisync Result Encounter [facility] External Department Unsolicited Provider, Generic External Data Social History Tobacco UseTypesPacks/DayYears UsedDateSmoking Tobacco: NeverPassive Smoke Exposure: NeverSmokeless Tobacco: NeverAlcohol UseStandard Drinks/WeekComments Never0 (1 standard drink = 0.6 oz pure alcohol)PHQ-2AnswerDate RecordedPatient Health Questionnaire-2 Xucec819Estimated Date of Delivery KhlfxlqrQka34/19/2025Based on last menstrual period of 01/07/2025Sex and Gender InformationValueDate RecordedSex Assigned at BirthNot on fileLegal SexFemale 01/08/2023 6:51 PM EDTGender IdentityNot on fileSexual OrientationNot on file documented as of this encounter Plan of Treatment Not on file documented as of this encounter Procedures Procedure NamePriorityDate/TimeAssociated DiagnosisCommentsUS OB BPP W NON-LPTGBW8010/06/2025 5:07 PM EST documented in this encounter Results * US OB BPP W NON-STRESS (10/06/2025 5:07 PM EST)Anatomical Region LateralityModalityOtherSpecimen (Source)Anatomical Location / Laterality Collection Method / VolumeCollection TimeReceived Time12/08/2025 5:07 PM EST Narrative 10/06/2025 5:09 PM EST [facility] ?[address] ? [place] [address] ? Ultrasound Report ? Signed ? Patient: BLAS,DANETTE B ?MR#: [id number] ?? : 2005 ?Acct:[id number] ?? Age/Sex: 20 / F ?ADM Date: 10/06/25 ?? Loc: [facility] ??250-1 ? Attending Dr: JEANNINE SHARPE M.D. ? Ordering Physician: JEANNINE SHARPE M.D. ?? Date of Service: 10/06/25 ?? Procedure(s): US OB BPP w non-stress ?? Accession Number(s): [id number] ? cc: ELIANA MARQUIS ; JEANNINE SHARPE M.D. ? [facility] ? [address] ? [place] [address] ? Patient Name: ?? DANETTE B BLAS ? MRN: [facility]:[id number] ? date: 2005 ?Sex: F ?? Assigned Patient Location: [facility] ?? Current Patient Location: [facility] ?? Accession/Order Number: [id number] ?? Exam Date: 10/06/2025 ??15:40 ?Report Date: 10/06/2025 ??17:07 ? At the request of: ?? JEANNINE SHARPE ??MD ? Procedure: ??US OB BPP w non-stress ? Ultrasound biophysical profile ? INDICATION: Decreased movements ? COMPARISON: 09/30/2025 ? FINDINGS/ IMPRESSION: Fetus is cephalic position.. ?? cardiac activity 145 ?? beats per minutes. ??KURTIS: 14.7 cm. ??Biophysical profile score 8/8. ? Impression dictated by: Marvel Encinas M.D. ??10/06/2025 5:07 PM ? Dictation Location: [facility] ? Electronically authenticated by: [id number] ??Y ?? Date: 10/06/2025 ??17:07 ? Dictated By: ?Marvel Encinas M.D. ? Signed By: ?10/06/25 1709 ? DD/ 06 ? TD/TT: ? Software Security Architect: Procedure Note Radiology, Radiologist, MD - 10/06/2025 [place] [address] Ultrasound Report Signed Patient: BLASDANETTE BMR#: [id number] : 2005Acct:[id number] Age/Sex: 20 / FADM Date: 10/06/25 Loc: [facility] 250-[address]: JEANNINE SHARPE M.D. Ordering Physician: JEANNINE SHARPE M.D. Date of Service: 10/06/25 Procedure(s): US OB BPP w non-stress Accession Number(s): [id number] cc: ELIANA MARQUIS ; JEANNINE SHARPE M.D. [place] [address] Patient Name: DANETTE BLAS MRN: [id number] date: 2005 Sex: F Assigned Patient Location: [facility] Current Patient Location: [facility] Accession/Order Number: [id number] Exam Date: 10/06/2025 15:40 Report Date: 10/06/2025 17:07 At the request of: JEANNINE SHARPE MD Procedure: US OB BPP w non-stress Ultrasound biophysical profile INDICATION: Decreased movements COMPARISON: 09/30/2025 FINDINGS/ IMPRESSION: Fetus is cephalic position.. cardiac jlttlwec161 beats per minutes. KURTIS: 14.7 cm. Biophysical profile score 8/8. Impression dictated by: Marvel Encinas M.D. 10/06/2025 5:07 PM Dictation Location: [place] [address] Electronically authenticated by: [id number] Y Date: 7:07 Dictated By: Marvel Encinas M.D. Signed By:10/06/251708 DD/ 06 TD/TT: Software Security Architect: Authorizing ProviderResult TypeResult StatusGeneric External Data Provider CL[facility]IS[facility]NC IMAGINGFinal Result documented in this encounter Visit Diagnoses Not on filedocumented in this encounter Care Teams Team MemberRelationshipSpecialtyStart DateEnd Date Eliana Marquis MD [address] [facility] [address] [place] [address] PCP - GeneralFamily Medicine03/04/23documented as of this encounter
--- OUTSIDE RECORDS SUMMARY | 2025-10-11 13:04 | XMS_ITS | Encounter Summary ---
Author Organization [facility] Address [address] [facility] [place] [address] Care Team Providers Care Tape Weaver Name Role Phone Eliana Flanagan MD Primary Care Provider [phone] Encounter Details DateTypeDepartmentCare Team (Latest Contact Info)Balzipdnotw58/15/2025amboo flowsheet [facility] [address] [place] [address] Alex Antunez DO [address] [place], [place] [address] Social History Tobacco UseTypesPacks/DayYears UsedDateSmoking Tobacco: NeverPassive Smoke Exposure: NeverSmokeless Tobacco: NeverAlcohol UseStandard Drinks/WeekComments Never0 (1 standard drink = 0.6 oz pure alcohol)PHQ-2AnswerDate RecordedPatient Health Questionnaire-2 Elase710Estimated Date of Delivery SmhcejzqJon56/19/2025Based on last menstrual period of 01/07/2025Sex and Gender InformationValueDate RecordedSex Assigned at BirthNot on fileLegal SexFemale 01/08/2023 6:51 PM EDTGender IdentityNot on fileSexual OrientationNot on file documented as of this encounter Plan of Treatment Not on file documented as of this encounter Visit Diagnoses Not on filedocumented in this encounter Care Teams Team MemberRelationshipSpecialtyStart DateEnd Date Eliana Flanagan MD [address] [facility] [address] [place] [address] PCP - GeneralFamily Medicine03/04/23documented as of this encounter
--- OUTSIDE RECORDS SUMMARY | 2025-10-11 13:04 | XMS_ITS | Encounter Summary ---
Author Organization [facility] Address [address] [place] [address] Care Team Providers Care Vermin Exterminator Name Role Phone Eliana Flanagan MD Primary Care Provider [phone] Encounter Details DateTypeDepartmentCare Team (Latest Contact Info)Zgjumumbyfr67/16/2025Telephone [facility] [address] [place] [address] Alex Antunez DO [address] [place] Will[place], [facility] Social History Tobacco UseTypesPacks/DayYears UsedDateSmoking Tobacco: NeverPassive Smoke Exposure: NeverSmokeless Tobacco: NeverAlcohol UseStandard Drinks/WeekComments Never0 (1 standard drink = 0.6 oz pure alcohol)PHQ-2AnswerDate RecordedPatient Health Questionnaire-2 [id number] Date of Delivery GuamxckhJck66/19/2025Based on last menstrual period of 01/07/2025Sex and Gender InformationValueDate RecordedSex Assigned at BirthNot on fileLegal SexFemale 01/08/2023 6:51 PM EDTGender IdentityNot on fileSexual OrientationNot on file documented as of this encounter Miscellaneous Notes * Telephone Encounter - Hilaria ADELE Keys - 10/11/2025 11:56 AM EST Patient called and she states hat she missed a call from the office. Spoke with duty officer and this was in regards to IOL on 10/12/2025 @ 630 pm deliver on 10/13/2025. Patient was called and left a detailed voicemail to enter at ER doors and will be sent upstairs.Message sent through [employer] for patient. documented in this encounter Plan of Treatment Not on file documented as of this encounter Visit Diagnoses Not on filedocumented in this encounter Care Teams Team MemberRelationshipSpecialtyStart DateEnd Date Eliana Flanagan MD [address] [address] PCP - GeneralFamily Medicine03/04/23documented as of this encounter
--- OUTSIDE RECORDS SUMMARY | 2025-10-11 13:05 | XMS_ITS | Encounter Summary ---
Author Organization [facility] Address [address] [place] [address] Care Team Providers Care Metal Welder Name Role Phone Eliana Flanagan MD Primary Care Provider [phone] Encounter Details DateTypeDepartmentCare Team (Latest Contact Info)Xprhhrwbqbv97/04/2025Telephone [facility] [address] [place] [address] [place] [address] Anuja Green LPN Social History Tobacco UseTypesPacks/DayYears UsedDateSmoking Tobacco: NeverPassive Smoke Exposure: NeverSmokeless Tobacco: NeverAlcohol UseStandard Drinks/WeekComments Never0 (1 standard drink = 0.6 oz pure alcohol)PHQ-2AnswerDate RecordedPatient Health Questionnaire-2 Ecabs428Estimated Date of Delivery XzxbklkiBqn14/19/2025Based on last menstrual period of 01/07/2025Sex and Gender InformationValueDate RecordedSex Assigned at BirthNot on fileLegal SexFemale 01/08/2023 6:51 PM EDTGender IdentityNot on fileSexual OrientationNot on file documented as of this encounter Miscellaneous Notes * Telephone Encounter - Shani Hinds MA - 09/30/2025 11:32 AM EST Pt returned call. Explained NST and BPP to pt and she will call to schedule appt today. * Telephone Encounter - Shani Hinds MA - 09/30/2025 8:17 AM EST LMVM for pt to return call * Telephone Encounter - Anuja Green LPN - 09/29/2025 5:20 PM EST 5:20pm Was given message from Hospice [facility]er that patient had called office requesting call back from nursing staff. Called patient and LMOM that nursing would reach out to her in the morning since she was not able to answer at this time. Will call patient tomorrow morning--Anuja Banuelos LPN documented in this encounter Plan of Treatment Not on file documented as of this encounter Visit Diagnoses Not on filedocumented in this encounter Care Teams Team MemberRelationshipSpecialtyStart DateEnd Date Eliana Flanagan MD [address] [address] PCP - GeneralFamily Medicine03/04/23documented as of this encounter
--- OUTSIDE RECORDS SUMMARY | 2025-10-11 13:05 | XMS_ITS | Clinical Summary ---
Author Organization [facility] Healthcare Address [address] [place] [address] Care Team Providers Care Exterior Work Helper Name Role Phone Eliana Marquis MD Primary Care Provider [phone] Allergies Active AllergyReactionsCriticalityNoted YokiXdsmfouyIyeskxirhynIbgqqdb52/12/2024 Medications MedicationSigDispense QuantityRefillsLast FilledStart DateEnd DateStatus MV-Min-Fe Fum-FA-DHA ( 1 PO) Take 1 tablet by mouth DailyActive diphenhydrAMINE (BENADryl) 50 MG tablet Take 50 mg by mouth as needed at bedtime for itchingActive omeprazole (PriLOSEC) [address] capsule Indications:Gastroesophageal Reflux Disease,HeartburnTake 1 capsule (20 mg) by mouth in the morning. Take before meals. Do not crush or chew. 30 capsule 5Active magnesium oxide (Mag-Ox) 400 (240 Mg) MG tablet Take 400 mg by mouth Daily5Active cephalexin (Keflex) 500 MG capsule Indications:Hematuria, grossTake 1 capsule (500 mg) by mouth in the morning and 1 capsule (500 mg) in the evening and 1 capsule(500 mg) before bedtime. Do all this for 10 days. 30 capsule Expired Active Problems ProblemNoted DateDiagnosed DateSize of fetus inconsistent with dates, antepartum ([facility])08/10/2025PCOS (polycystic ovarian syndrome)09/07/2024urrent severe episode of major depressive disorder without psychotic features without prior sefgmrt9812/30/2023Exercise-induced /05/2024Patellofemoral syndrome of right knee4Estimated Date of ZsyprjfrRunfrlehFbf96/19/2025Based on last menstrual period of 01/07/2025 Encounters DateTypeDepartmentCare VlxqPygmlqyyvch65/16/2025Telephone [facility] [address] [address] Alex Antunez, 10/10/2025 1:20 PM ESTRoutine [facility] [address] [place] [address] Alex Antunez, DO Third trimester ([facility]); 39 weeks gestation of ([facility])10/10/2025amboo flowsheet [facility] [address] [place] [address] Alex Antunez, 10/06/2025 2:40 PM ESTRoutine [facility] [address] [place] [address] Darlene Olmstead, [place] Third trimester ([facility]); 38 weeks gestation of ([facility])5Clinisync Result Encounter [facility]OM[facility] External Department Unsolicited Provider, Generic External Data 10/06/2025amboo flowsheet [facility] [address] [place] [address] Darlene Olmstead NP 5Clinisync Result Encounter NOMS External Department Unsolicited Alex Antunez, DO 09/29/2025Telephone [facility] [address] [place] [address] Anuja Green LPN 09/27/2025 11:00 AM ESTRoutine [facility] [address] [address] Alex Antunez, DO Third trimester ([facility]); 37 weeks gestation of ([facility]); Poor growth affecting management of mother, antepartum, single or unspecified fetus ([facility])09/27/2025 10:00 AM ESTAncillary Procedure [facility] [address] [place] [address] Poor growth affecting management of mother in third trimester, single or unspecified fetus ([facility])09/21/2025Telephone [facility] [address] [place] [address] Alex Antunez, DO 09/21/2025bstract [facility] [address] [place] [address] Alex Antunez, DO 09/20/2025 2:00 PM ESTRoutine [facility] [address] [place] [address] Munira Yu PA Third trimester ([facility]); 36 weeks gestation of ([facility]); Poor growth affecting management of mother in third trimester, single or unspecified fetus ([facility])09/20/2025linisync Result Encounter [facility]OM[facility] External Department Unsolicited Munira Yu PA 09/20/2025amboo flowsheet [facility] [address] [address] Munira Yu PA 09/19/2025bstract [facility] [address] [address] Darlene Olmstead NP 09/19/2025Telephone [facility] [address] [place] [address] Darlene Olmstead, [place] 09/13/2025 9:20 AM ESTRoutine [facility] [address] [place] [address] Alex Antunez, DO Third trimester ([facility]); 35 weeks gestation of ([facility]); Hematuria, gross5Bamboo flowsheet [facility] [address] [place] [address] Alex Antunez, 5Abstract [facility] [address] [place] [address] Guzman Shani, MA 5Clinisync Result Encounter NOMS External Department Unsolicited Darlene Olmstead, [place] 09/06/2025Telephone [facility] [address] [place] [address] Guzman Shani, MA 5Clinisync Result Encounter NOMS External Department Unsolicited Darlene Olmstead, [place] 08/26/2025Telephone [facility] [address] [address] Liliana Leahy [place] 08/26/2025linisync Result Encounter [facility]OM[facility] External Department Unsolicited Darlene Olmstead, YARN COMBER 08/25/2025 3:20 PM EDTRoutine [facility] [address] [place] [address] Munira Yu PA Urinary tract infection without hematuria, site unspecified (Primary Dx); Third trimester ([facility]); 32 weeks gestation of ([facility])08/25/2025amboo flowsheet [facility] [address] [place] [address] Munira Yu PA 08/22/2025linisync Result Encounter NOMS External Department Unsolicited Alex Antunez, 08/22/2025Telephone [facility] [address] [place] [phone] Anuja Green LPN 08/19/2025linisync Result Encounter NOMS External Department Unsolicited Alex Antunez DO 08/11/2025 3:00 PM EDTRoutine [facility] [address] [address] Munira Yu PA Third trimester ([facility]); 30 weeks gestation of ([facility])08/11/2025 2:30 PM EDTAncillary Procedure [facility] [address] [address] Second trimester ([facility]); Cystitis; Size of fetus inconsistent with dates, antepartum ([facility])08/05/2025Patient Outreach [place] [address] [address] Munira Degroot LPN 08/04/2025bstract [facility] [address] [place] [address] Munira Degroot LPN 07/27/2025 1:50 PM EDTRoutine [facility] [address] [place] [address] Darlene Olmstead NP Anemia, unspecified type (Primary Dx); 28 weeks gestation of ([facility]); Third trimester ([facility]); Elevated glucose tolerance test07/27/2025amboo flowsheet [facility] OBJIM[facility] [address] [place] [address] Darlene Olmstead NP 07/26/2025Telephone [facility] BACAGYAnat [address] [place] [address] Shani Hinds MA 07/25/2025linisync Result Encounter NOM[facility] External Department Unsolicited Provider, Generic External Data 07/13/2025 3:20 PM EDTRoutine [facility] [address] [place] [address] Alex Antunez DO Cystitis (Primary Dx); 26 weeks gestation of ([facility]); Second trimester ([facility]); Gastroesophageal reflux in ([facility]); Size of fetus inconsistent with dates, antepartum ([facility])5Bamboo flowsheet [facility] [address] [place] [phone] Alex Antunez DO from Last 3 Months Family History RelationNameStatusCommentsFatherAliveMotherAlive Social History Tobacco UseTypesPacks/DayYears UsedDateSmoking Tobacco: NeverPassive Smoke Exposure: NeverSmokeless Tobacco: Never Tobacco Cessation:Counseling Given: Yes Alcohol UseStandard Drinks/WeekCommentsNever0 (1 standard drink = 0.6 oz pure alcohol)PHQ-2AnswerDate RecordedPatient Health Questionnaire-2 Qnbaz597 Estimated Date of IyiqhxqfZiaerafvAzl61/19/2025Based on last menstrual period of 01/07/2025Sex and Gender InformationValueDate RecordedSex Assigned at BirthNot on fileLegal XcxQmfrem43/15/2023 6:51 PM EDTGender IdentityNot on file Sexual OrientationNot on file Last Filed Vital Signs Vital SignReadingTime TakenCommentsBlood Nnvgnegt129/7010/10/2025 1:36 PM EST Quefi571604/05/2025 11:07 AM EDTTemperature--Respiratory Zqxu977204/05/2025 11:07 AM EDTOxygen Rwrtelwwks85%04/05/2025 11:07 AM EDTInhaled Oxygen Concentration-- Hgqmdh25.6 kg (171 lb)10/10/2025 1:36 PM WPMJoslwh687.6 cm (5' 4 )04/05/2025 11:07 AM EDTBody Mass Index29.35004/05/2025 11:07 AM EDT Plan of Treatment Health MaintenanceDue DateLast DoneCommentsPneumococcal Vaccine: Pediatrics (0 to 5 Years) and At-Risk Patients (6 to 64 Years) (1 of 2 - PCV)2023OVID- 19 Vaccine (1 - 2024-26 season)2025Influenza Vaccine (#1)2025 Procedures Procedure NamePriorityDate/TimeAssociated DiagnosisCommentsPOCT URINALYSIS AXRMIUZFLalebkg53/15/2025 1:42 PM EST 39 weeks gestation of ([facility]) US OB BPP W NON-FHFQGM9110/06/2025 5:07 PM EST US OB BPP W NON-QAXGSZ9309/30/2025 10:14 PM EST POCT URINALYSIS BTMHTJCQBdvfonj12/02/2025 10:50 AM EST 37 weeks gestation of ([facility]) US OB FOLLOW UP TRANSABDOMINAL TBDTZBUUYmlkvzx15/02/2025 10:34 AM EST Poor growth affecting management of mother in third trimester, single or unspecified fetus ([facility]) POCT URINALYSIS RNQVGCLOYogbarp61/25/2025 2:32 PM EST Third trimester ([facility]) STREP GP B CULTURE+ZIYOQhokyqm20/25/2025 2:21 PM EST POCT URINALYSIS JJXUEUNUXozzajv80/18/2025 9:38 AM EST 35 weeks gestation of ([facility]) IEVCKLBPTMYJxijyrv54/12/2025 9:57 AM EST CCF ZSJMLOHPFvidoux29/12/2025 9:57 AM EST MLR HEMOGLOBIN Y0MSgjmiro15/01/2025 12:50 PM EDT ALL CBC WITH AUTO GOJGDyfgfhg29/31/2025 10:57 AM EDT POCT URINALYSIS PHIQFSEYKqveauh94/30/2025 3:40 PM EDT 32 weeks gestation of ([facility]) GLUCOSE TOLERANCE 3 WIZQNtpgkbe94/27/2025 8:44 AM EDT URINE CULTURE, NKYNNUJRbhauaq25/24/2025 12:18 PM EDT [facility] URINE MICROSCOPIC EBPHLvhjbdx73/24/2025 12:18 PM EDT [facility] UA (CLEAN/CATCH) JIG BORE TOOL MAKER/MICRO IF IND.Pvozneb6808/19/2025 12:18 PM EDT US OB FOLLOW UP TRANSABDOMINAL QVILFUONJnceezh67/17/2025 12:55 PM EDT Second trimester ([facility]) Cystitis Size of fetus inconsistent with dates, antepartum ([facility]) POCT URINALYSIS XWLQKQIWIdldbyu90/16/2025 3:21 PM EDT Third trimester ([facility]) POCT URINALYSIS DXYSTJXXUwomjtt06/01/2025 2:06 PM EDT 28 weeks gestation of ([facility]) GLUCOSE 1 GMGGDaxvuwt42/29/2025 1:17 PM EDT ALL CBC WITH AUTO MOMVPrnievt38/29/2025 1:17 PM EDT URINARY TRACT INFECTION (HTRX)Htsindo6107/13/2025 4:23 PM EDT POCT URINALYSIS TWIWPFSOLonyxbn55/17/2025 3:34 PM EDT 26 weeks gestation of ([facility]) Second trimester ([facility]) from Last 3 Months Results * (ABNORMAL) POCT urinalysis dipstick manually resulted (10/10/2025 1:42 PM EST) Only the most recent of8 resultswithin the time period is included. ComponentValueRef RangeTest MethodAnalysis TimePerformed AtPathologist Signature Color, UAYellowClarity, UAClearGlucose, UANegativeNegative - 1999(110) ++++ mg/dLBilirubin, UANegativeNegative - 4(70) +++ mg/dLKetones, UANegativeNegative - 160(16) ++++ mg/dLSpec Grav, UA1.0101 - 1.03Blood, UANegativeNegative - 50 Tarun/mcLpH, UA6.05 - 9Protein, UANegativeNegative - 2000(20) ++++ mg/dL Urobilinogen, UA1.00.2 - 12 mg/dLLeukocytes, UA1+Negative - 500+++ Joelle/mcL Nitrite, UANegativeNegative - PositiveSpecimen (Source)Anatomical Location / LateralityCollection Method / VolumeCollection TimeReceived DdveUgnni69/15/2025 1:42 PM EST Narrative Authorizing ProviderResult TypeResult StatusCorey Tulio DOPOINT OF CARE TEST ENTER/EDIT ORDERABLESFinal Result * US OB BPP W NON-STRESS (10/06/2025 5:07 PM EST) Only the most recent of2 resultswithin the time period is included. Anatomical RegionLateralityModalityOtherSpecimen (Source)Anatomical Location / LateralityCollection Method / VolumeCollection TimeReceived Time10/06/2025 5:07 PM EST Narrative 10/06/2025 5:09 PM EST [facility] ?[address] ? [place] [address] ? Ultrasound Report ? Signed ? Patient: AYALA,DANETTE B ?MR#: [id number] ?? : 2005 ?Acct:[id number] ?? Age/Sex: 20 / F ?ADM Date: 10/06/25 ?? Loc: [facility] ??250-1 ? Attending Dr: JEANNINE SHARPE M.D. ? Ordering Physician: JEANNINE SHARPE M.D. ?? Date of Service: 10/06/25 ?? Procedure(s): US OB BPP w non-stress ?? Accession Number(s): [id number] ? cc: ELIANA MARQUIS ; JEANNINE SHARPE M.D. ? [facility] ? [address] ? [place] [address] ? Patient Name: ?? DANETTE B AYALA ? MRN: [facility]:[id number] ? date: 2005 ?Sex: F ?? Assigned Patient Location: [facility] ?? Current Patient Location: [facility] ?? Accession/Order Number: [id number] ?? Exam Date: 10/06/2025 ??15:40 ?Report Date: [...] M.D. ??10/06/2025 5:07 PM ? Dictation Location: RADIO-PC-29 ? Electronically authenticated by: [id number] ??Y ?? Date: 10/06/2025 ??17:07 ? Dictated By: ?Marvel Encinas M.D. ? Signed By: ?10/06/25 1709 ? DD/ 1707 ? TD/TT: ? Nuclear Medicine Specialist: Procedure Note Radiology, Radiologist, MD - 10/06/2025 [place] [address] Ultrasound Report Signed Patient: DANETTE AYALA BMR#: [id number] : 2005Acct:[id number] Age/Sex: 20 / FADM Date: 10/06/25 Loc: [facility] 250-[address]: JEANNINE SHARPE M.D. Ordering Physician: JEANNINE SHARPE M.D. Date of Service: 10/06/25 Procedure(s): US OB BPP w non-stress Accession Number(s): [id number] cc: ELIANA MARQUIS ; JEANNINE SHARPE M.D. The [address] [address] Patient Name: LUCY MRN: [facility]:[id number] date: 2005 Sex: F Assigned Patient Location: [facility] Current Patient Location: [facility] Accession/Order Number: [id number] Exam Date: 10/06/2025 15:40 Report Date: 10/06/2025 17:07 At the request of: JEANNINE SHARPE MD Procedure: US OB BPP w non-stress Ultrasound biophysical profile INDICATION: Decreased movements COMPARISON: 09/30/2025 FINDINGS/ IMPRESSION: Fetus is cephalic position.. cardiac kpkxzybh470 beats per minutes. KURTIS: 14.7 cm. Biophysical profile score 8/8. Impression dictated by: Marvel Encinas M.D. 10/06/2025 5:07 PM Dictation Location[facility] Electronically authenticated by: [id number] Y Date: 7:07 Dictated By: Marvel Encinas M.D. Signed By:10/06/251708 DD/ 06 TD/TT: Nuclear Medicine Specialist: Authorizing ProviderResult TypeResult StatusGeneric External Data Provider CLINISYNC IMAGINGFinal Result * US OB follow up transabdominal approach (09/27/2025 10:34 AM EST) Only the most recent of2 resultswithin the time period is included. Anatomical RegionLateralityModalityBodyUltrasoundSpecimen (Source)Anatomical Location / LateralityCollection Method / VolumeCollection TimeReceived Time 09/27/2025 12:27 PM EST Impressions 09/27/2025 12:56 PM [...] Camp MD Authorizing ProviderResult TypeResult StatusAmy Gigi [facility] OB US PROCEDURES Final Result * STREP GP B CULTURE+RFLX (09/20/2025 2:21 PM EST)ComponentValueRef RangeTest MethodAnalysis TimePerformed AtPathologist SignatureSTREP GP B CULTURE+RFLX ??Strep Gp B Culture+Rflx TBHSTREP GP B CULTURE+RFLXNegativeTBHSTREP GP B CULTURE+RFLXCenters for Disease Control and Prevention (CDC) andTBHSTREP GP B CULTURE+RFLXAmerican Congress of Obstetricians and GynecologistsTBHSTREP GP B CULTURE+RFLX(ACOG) guidelines for prevention of group BTBHSTREP GP B CULTURE+RFLXstreptococcal (GBS) disease specify co-collection ofTBHSTREP GP B CULTURE+RFLXa vaginal and rectal swab specimen to maximizeTBHSTREP GP B CULTURE+RFLXsensitivity of GBS detection. Per the CDC and ACOG,TBHSTREP GP B CULTURE+RFLXswabbing both the lower vagina and rectumTBHSTREP GP B CULTURE+RFLXsubstantially increases the yield of detectionTBHSTREP GP B CULTURE+RFLXcompared with sampling the vagina alone.TBH STREP GP B CULTURE+RFLXPenicillin G, ampicillin, or cefazolin are indicatedTBH STREP GP B CULTURE+RFLXfor intrapartum prophylaxis of GBSTBHSTREP GP B CULTURE+RFLXcolonization. Reflex susceptibility testing should beTBHSTREP GP B CULTURE+RFLXperformed prior to use of clindamycin only on GBSTBHSTREP GP B CULTURE+RFLXisolates from penicillin-allergic women who areTBHSTREP GP B CULTURE+RFLXconsidered a high risk for anaphylaxis. Treatment withTBHSTREP GP B CULTURE+RFLXvancomycin without additional testing is warranted ifTBHSTREP GP B CULTURE+RFLXresistance to clindamycin is noted.TBHSTREP GP B CULTURE+RFLX Performed at: [facility]TBHSTREP GP B CULTURE+[id number] [place], [place] [id number] GP B CULTURE+RFLXLab Director: Nate Don PhD, Phone: [phone] (Source)Anatomical Location / Laterality Collection Method / VolumeCollection TimeReceived Time09/20/2025 2:21 PM EST 09/20/2025 9:00 PM EST Narrative [facility] - 09/25/2025 1:08 PM EST Authorizing ProviderResult TypeResult StatusAmy Gigi [place] BLOOD ORDERABLES Final ResultPerforming OrganizationAddressCity/State/ZIP CodePhone Number [facility] * (ABNORMAL) TRANSFERRIN (09/07/2025 9:57 AM EST)ComponentValueRef RangeTest MethodAnalysis TimePerformed AtPathologist UiptzmpxuFEGQMJITFKB413(A)192 - 364 mg/dLTBHComment: Performed at: ?? - [facility] [address] ??[id number] Kelly Machine Operator: Nate Don PhD, Phone: ??[phone] Specimen (Source)Anatomical Location / LateralityCollection Method / Volume Collection TimeReceived Time09/07/2025 9:57 AM EST09/07/2025 10:02 AM EST Narrative [facility] - 09/08/2025 12:09 PM EST Authorizing ProviderResult TypeResult StatusDarlene Olmstead NPLAB BLOOD ORDERABLESFinal ResultPerforming OrganizationAddressCity/State/ZIP CodePhone Number [place] [facility] * (ABNORMAL) CCF FERRITIN (09/07/2025 9:57 AM EST)ComponentValueRef RangeTest MethodAnalysis TimePerformed AtPathologist SignatureFERRITIN6.0(L)8.0 - 252.0 ng/mLTBHSpecimen (Source)Anatomical Location / LateralityCollection Method / VolumeCollection TimeReceived Time09/07/2025 9:57 AM EST09/07/2025 10:02 AM EST Narrative [facility] - 09/07/2025 11:54 AM EST Authorizing ProviderResult TypeResult StatusDarlene Olmstead NPCLINISYNCFinal ResultPerforming OrganizationAddressCity/State/ZIP CodePhone Number [place] [facility] * MLR HEMOGLOBIN A1C (08/27/2025 12:50 PM EDT)ComponentValueRef RangeTest Method Analysis TimePerformed AtPathologist SignatureGLYCOHEMOGLOBIN A1C4.94.5 - 6.2 %TBHComment: ADA RECOMMENDED LIMIT 4.0 - 6.0 ADA THERAPEUTIC TARGET < 7.0 ACTION SUGGESTED > 7.0 ESTIMATED AVERAGE CIVPTYX08zt/dLTBHSpecimen (Source)Anatomical Location / LateralityCollection Method / VolumeCollection TimeReceived Time08/27/2025 12:50 PM EDT110/27/2024 12:51 PM EDT Narrative [facility] - 08/27/2025 1:18 PM EDT Authorizing ProviderResult TypeResult StatusKristina Ishan NPCLINISYNCFinal ResultPerforming OrganizationAddressCity/State/ZIP CodePhone Number [facility] * ([facility]NORMAL) ALL CBC WITH AUTO [...] - 35.2 g/dLTBHTBH RDW13.611.0 - 15.0 %TBHTBH [id number] - 450 10 3/uLTBHTBH MPV11.19.5 - 13.5 [...] StatusDarlene Olmstead NPCLINISYNCFinal ResultPerforming OrganizationAddressCity/State/ZIP CodePhone Number [place] [facility] * GLUCOSE TOLERANCE 3 HOUR (08/22/2025 [...] BLOOD ORDERABLES Final ResultPerforming OrganizationAddressCity/State/ZIP CodePhone Number [place] [facility] * (ABNORMAL) URINE CULTURE, ROUTINE (08/19/2025 [...] Isolated TBHURINE CULTURE, ROUTINEPerformed at: - [facility] KwigillingokTBHURINE CULTURE, [id number] [place], [place] [id number] CULTURE, ROUTINELab Director: Nate Don PhD, Phone: [phone] CULTURE, ROUTINE Organism: ??1.1 Antibiotic ? Interpretation [...] 12:18 PM EDT1 1:24 PM EDT Narrative [facility] - 08/19/2025 1:32 PM EDT Authorizing ProviderResult TypeResult StatusCorey Tulio DOCLINISYNCFinal Result Performing OrganizationAddressCity/State/ZIP CodePhone Number [facility] * (ABNORMAL) [facility] UA (CLEAN/CATCH) JIG BORE TOOL MAKER/MICRO IF IND. (08/19/2025 12:18 PM EDT) ComponentValueRef RangeTest MethodAnalysis TimePerformed AtPathologist SignatureCOLOR URINELT. YELLOWYELLOWTBHCLARITY URINECLEARCLEARTBHSPECIFIC GRAVITY URINE1.0101.005 - 1.025TBHPH URINE7.05.0 - 9.0TBHPROTEIN URINENEGATIVE NEG/TRACE mg/dLTBHGLUCOSE URINE UANEGATIVENEGATIVE mg/dLTBHBILIRUBIN URINE NEGATIVENEGATIVETBHKETONES URINENEGATIVENEGATIVE mg/dLTBHBLOOD URINENEGATIVE NEGATIVETBHNITRITE URINENEGATIVENEGATIVETBHUROBILINOGEN URINE0.20.2 - 1.0 EU/dLTBHLEUKOCYTE ESTERASE URINESMALL(A)NEGATIVETBHURINE MICROSCOPIC INDICATED YESTBHSpecimen (Source)Anatomical Location / LateralityCollection Method / VolumeCollection TimeReceived Time08/19/2025 12:18 PM EDT1 1:24 PM EDT Narrative [facility] - 08/19/2025 1:32 PM EDT Authorizing ProviderResult TypeResult StatusCorey Tulio DOCLINISYNCFinal Result Performing OrganizationAddressCity/State/ZIP CodePhone Number [place] [facility] * (ABNORMAL) GLUCOSE 1 HOUR (07/25/2025 1:17 PM EDT)ComponentValueRef RangeTest MethodAnalysis TimePerformed AtPathologist SignatureGLUCOSE 1 NIMB785(H)<130 mg/dLTBHSpecimen (Source)Anatomical Location / LateralityCollection Method / VolumeCollection TimeReceived Time07/25/2025 1:17 PM EDT07/25/2025 1:19 PM EDT Narrative [facility] - 07/25/2025 1:47 PM EDT Authorizing ProviderResult TypeResult StatusCorey Tulio DOLAB BLOOD ORDERABLES Final ResultPerforming OrganizationAddressCity/State/ZIP CodePhone Number [facility] * URINARY TRACT INFECTION (HTRX) (07/13/2025 4:23 PM EDT)ComponentValueRef Range Test MethodAnalysis TimePerformed AtPathologist SignatureACINETOBACTER DZIHKPOM581.961 - 24.689 ppm07/15/2025 7:29 AM EDTHealthTrackRx at [facility] ACINETOBACTER BAUMANIINot Gbreyxrp87.961 - 24.689 ppm07/15/2025 7:29 AM EDT [facility] at LabPortCITROBACTER STCTKHIW484.000 - 32.015 ppm07/15/2025 7:29 AM EDTHealthTrackRx at LabPortCITROBACTER FREUNDIINot Gldojyqu50.000 - 32.015 ppm07/15/2025 7:29 AM EDTHealthTrackRx at LabPortENTEROBACTER AEROGENES, HOAFZBG353.000 - 32.290 ppm07/15/2025 7:29 AM EDTHealthTrackRx at LabPortENTEROBACTER AEROGENES, CLOACAENot Gqxcqwbu80.000 - 32.290 ppm 07/15/2025 7:29 AM EDTHealthTrackRx at LabPortENTEROCOCCUS FAECALIS, FAECIUM0 26.000 - 33.043 ppm07/15/2025 7:29 AM EDTHealthTrackRx at LabPortENTEROCOCCUS FAECALIS, FAECIUMNot Ulbosflr20.000 - 33.043 ppm07/15/2025 7:29 AM EDT [facility] at LabPortESCHERICHIA FMYG608.000 - 28.500 ppm07/15/2025 7:29 AM EDTHealthTrackRx at LabPortESCHERICHIA COLINot Cmsvahyr74.000 - 28.500 ppm 07/15/2025 7:29 AM EDTHealthTrackRx at LabPortKLEBSIELLA PNEUMONIAE, OXYTOCA0 23.000 - 31.865 ppm07/15/2025 7:29 AM EDTHealth[facility]Rx at LabPortKLEBSIELLA PNEUMONIAE, OXYTOCANot Dwjulhho88.000 - 31.865 ppm07/15/2025 7:29 AM EDT [facility] LabPortMORGANELLA NLILASRN929.961 - 24.689 ppm07/15/2025 7:29 AM EDTHealthTrackRx at LabPortMORGANELLA MORGANIINot Wzgvaqel62.961 - 24.689 ppm07/15/2025 7:29 AM EDTHealthTrackRx at LabPortPROTEUS MIRABILIS, VULGARIS0 23.000 - 28.500 ppm07/15/2025 7:29 AM EDTHealthTrackRx at LabPortPROTEUS MIRABILIS, VULGARISNot Kdjqrjjx26.000 - 28.500 ppm07/15/2025 7:29 AM EDT [facility]PortPSEUDOMONAS NEQXAKXIKB949.000 - 31.801 ppm07/15/2025 7:29 AM EDT[facility]Rx at LabPortPSEUDOMONAS AERUGINOSANot Ugczlvzj50.000 - 31.801 ppm07/15/2025 7:29 AM EDTHealthTrackRx at LabPortSTAPHYLOCOCCUS AUREUS0 26.000 - 31.595 ppm07/15/2025 7:29 AM [facility] STAPHYLOCOCCUS AUREUSNot Uskhypdd45.000 - 31.595 ppm07/15/2025 7:29 AM EDT [facility] LabPortSTREPTOCOCCUS AGALACTIAE (GROUP B STREP)026.000 - 32.435 ppm07/15/2025 7:29 AM EDT[facility] at LabPortSTREPTOCOCCUS AGALACTIAE (GROUP B STREP)Not Eoifukuc43.000 - 32.435 ppm07/15/2025 7:29 AM EDTHealthTrackRx at LabPortCANDIDA ALBICANS, PARAPSILOSIS, WLLALFGBYF737.000 - 30.347 ppm07/15/2025 7:29 AM EDT[facility] at LabPortCANDIDA ALBICANS, PARAPSILOSIS, TROPICALISNot Teuglkew71.000 - 30.347 ppm07/15/2025 7:29 AM EDT [facility]PortCANDIDA CGYTYQGM410.000 - 31.618 ppm07/15/2025 7:29 AM EDTHealthTrack[facility] at LabPortCANDIDA GLABRATANot Vjlqlytt54.000 - 31.618 ppm 07/15/2025 7:29 AM EDT[facility] at LabPortCANDIDA WBLEUF537.000 - 30.873 ppm07/15/2025 7:29 AM EDT[facility] at LabPortCANDIDA KRUSEINot Detected 23.000 - 30.873 ppm07/15/2025 7:29 AM EDTHealthTrackRx at LabPortSERRATIA RZPVVMHYZK228.000 - 31.581 ppm07/15/2025 7:29 AM EDT[facility] SERRATIA MARCESCENSNot Kjmzmhix25.000 - 31.581 ppm07/15/2025 7:29 AM EDT [facility] PYOGENES (GROUP A STREP)019.961 - 24.689 ppm07/15/2025 7:29 AM EDT[facility] at LabPortSTREPTOCOCCUS PYOGENES (GROUP A STREP)Not Tnyeejpt96.961 - 24.689 ppm07/15/2025 7:29 AM EDT[facility] at [facility] CenterSTAPHYLOCOCCUS EPIDERMIDIS, HAEMOLYTICUS, LUGDUNENSIS, SAPROPHYTICUS (RZPRG777.961 - 24.689 ppm07/15/2025 7:29 AM EDT[facility] STAPHYLOCOCCUS EPIDERMIDIS, HAEMOLYTICUS, LUGDUNENSIS, SAPROPHYTICUS (URINANot Orxxtipm97.961 - 24.689 ppm07/15/2025 7:29 AM EDT[facility] STAPHYLOCOCCUS EPIDERMIDIS, HAEMOLYTICUS, LUGDUNENSIS, SAPROPHYTICUS (URINA0 19.961 - 24.689 ppm07/15/2025 7:29 AM EDT[facility] STAPHYLOCOCCUS EPIDERMIDIS, HAEMOLYTICUS, LUGDUNENSIS, SAPROPHYTICUS (URINANot Zwdydufw13.961 - 24.689 ppm07/15/2025 7:29 AM EDT[facility] Specimen (Source)Anatomical Location / LateralityCollection Method / Volume Collection TimeReceived ZzvgNawbi47/17/2025 4:23 PM EDT07/15/2025 1:30 AM EDT Narrative Authorizing ProviderResult TypeResult StatusKristina Ishan NPLAB BLOOD ORDERABLESFinal ResultPerforming OrganizationAddressCity/State/ZIP CodePhone Number [facility] [address] [address] from Last 3 Months Insurance Care Teams Team MemberRelationshipSpecialtyStart DateEnd Date Eliana Marquis MD [address] [facility] [address] [place] [address] PCP - GeneralFamily Medicine03/04/23
--- OUTSIDE RECORDS SUMMARY | 2025-10-11 13:05 | XMS_ITS | Encounter Summary ---
Author Organization [facility] Address [address] [facility] [place] [address] Care Team Providers Care Conservation Officer Name Role Phone Eliana Flanagan MD Primary Care Provider [phone] Encounter Details DateTypeDepartmentCare Team (Latest Contact Info)Uvmywblrlqs57/11/2025Bamboo flowsheet [facility] [address] [place] [address] Darlene Olmstead, MARION [address] [place] [address] Social History Tobacco UseTypesPacks/DayYears UsedDateSmoking Tobacco: NeverPassive Smoke Exposure: NeverSmokeless Tobacco: NeverAlcohol UseStandard Drinks/WeekComments Never0 (1 standard drink = 0.6 oz pure alcohol)PHQ-2AnswerDate RecordedPatient Health Questionnaire-2 Uulko468Estimated Date of Delivery JrrvskztZyd20/19/2025Based on last menstrual period of 01/07/2025Sex and Gender InformationValueDate RecordedSex Assigned at BirthNot on fileLegal SexFemale 01/08/2023 6:51 PM EDTGender IdentityNot on fileSexual OrientationNot on file documented as of this encounter Plan of Treatment Not on file documented as of this encounter Visit Diagnoses Not on filedocumented in this encounter Care Teams Team MemberRelationshipSpecialtyStart DateEnd Date Eliana Flanagan MD [address] [facility] [address] [place] [address] PCP - GeneralFamily Medicine03/04/23documented as of this encounter
--- OUTSIDE RECORDS SUMMARY | 2025-10-11 13:05 | XMS_ITS | Patient Health Record ---
Author Organization [facility] Address [address] [place] [address] Care Team Providers Care Mold Maker Name Role Phone Bethany Wells Primary Care Provider [phone] Dr. Adolfo Reagan Unavailable [phone] Reason For Referral No Information Plan Of Treatment No Information Insurance Providers Payer Name Payer Address Payer Phone Subscriber Number Group Number Insured Name Patient Relationship to Insured Coverage Start Date Coverage End Date [facility] [place] [employer] [address] [address] [place] [address] [id number] JUNIOR TREJO DANETTE Self - patient is the insured 3 Dental Wrap [facility] [address] [place] [id number], lf - patient is the xvakpxs0211/27/2022zAnthem BC Medicaid-termed 11/26/22[address] [place] [phone] AYALA, lf - patient is the [id number] DQ [place]-termed 11/26/22[address] [place] [phone] [id number], lf - [facility] the [facility] after [place]-termed 11/26/22[address] [place] [id number], AUTUMNSelf - patient is the [id number] [place] DQ Terminated 10/26/24 [address] [place] [phone] AYALA, Roland - patient is the [id number] Wrap [facility] [place] BCBS Termed [address] [place] [phone] [id number], AUTUMNSelf - patient is the xnotgfr7011/27/2022 09/25/2023
--- OUTSIDE RECORDS SUMMARY | 2025-10-11 13:05 | XMS_ITS | Encounter Summary ---
Author Organization [facility] Address [address] [place] [address] Care Team Providers Care Fabric Pattern Grader Name Role Phone Eliana Marquis MD Primary Care Provider [phone] Encounter Details DateTypeDepartmentCare Team (Latest Contact Info)Ctleiikoyxa68/05/2025linisync Result Encounter [facility] External Department Unsolicited Alex Antunez, DO [address] [facility] [place] [address] Social History Tobacco UseTypesPacks/DayYears UsedDateSmoking Tobacco: NeverPassive Smoke Exposure: NeverSmokeless Tobacco: NeverAlcohol UseStandard Drinks/WeekComments Never0 (1 standard drink = 0.6 oz pure alcohol)PHQ-2AnswerDate RecordedPatient Health Questionnaire-2 Olcnz492Estimated Date of Delivery VlngigsuTjz19/19/2025Based on last menstrual period of 01/07/2025Sex and Gender InformationValueDate RecordedSex Assigned at BirthNot on fileLegal SexFemale 01/08/2023 6:51 PM EDTGender IdentityNot on fileSexual OrientationNot on file documented as of this encounter Plan of Treatment Not on file documented as of this encounter Procedures Procedure NamePriorityDate/TimeAssociated DiagnosisCommentsUS OB BPP W NON-HSVRBJ2109/30/2025 10:14 PM EST documented in this encounter Results * US OB BPP W NON-STRESS (09/30/2025 10:14 PM EST)Anatomical Region LateralityModalityOtherSpecimen (Source)Anatomical Location / Laterality Collection Method / VolumeCollection TimeReceived Time09/30/2025 10:14 PM EST Narrative 09/30/2025 10:16 PM EST [facility] ?[address] ? [place] [address] ? Ultrasound Report ? Signed ? Patient: BLAS,DANETTE B ?MR#: [id number] ?? : 2005 ?Acct:[id number] ?? Age/Sex: 20 / F ?ADM Date: 09/30/25 ?? Loc: ? Attending Dr: Alex Antunez D.O. ? Ordering Physician: Alex Antunez D.O. ?? Date of Service: 09/30/25 ?? Procedure(s): US OB BPP w non-stress ?? Accession Number(s): [id number] ? cc: ELIANA MARQUIS ; Alex Antunez D.O. ? [facility] ? [address] ? [place] [address] ? Patient Name: ?? DANETTE B BLAS ? MRN: [facility]:[id number] ? date: 2005 ?Sex: F ?? Assigned Patient Location: [facility] ?? Current Patient Location: ? Accession/Order Number: [id number] ?? Exam Date: 09/30/2025 ??20:07 ?Report Date: 09/30/2025 ??22:14 ? At the request of: ?? ALEX ??GEORGE ??DO ? Procedure: ??US OB BPP w non-stress ? Ultrasound biophysical profile ? INDICATION: poor growth affecting management of mother ? COMPARISON: None ? FINDINGS/ IMPRESSION: Fetus is cephalic position.. ?? cardiac activity 134 ?? beats per minutes. ??KURTIS: 13.2 cm. ??Biophysical profile score 8/8. ? Impression dictated by: Marvel Encinas M.D. ??09/30/2025 10:14 PM ? Dictation Location: RADIO-PC-29 ? Electronically authenticated by: [id number] ??Y ?? Date: 09/30/2025 ??22:14 ? Dictated By: ?Marvle Encinas M.D. ? Signed By: ?09/30/25 2216 ? DD/ 13 ? TD/TT: ? Mechanical Estimator: Procedure Note Radiology, Radiologist, MD - 09/30/[address] [address] Ultrasound Report Signed Patient: DANETTE BLAS BMR#: [id number] : 2005Acct:[id number] Age/Sex: 20 / FADM Date: 09/30/25 Loc: US Attending Dr: Alex Antunez D.O. Ordering Physician: Alex Antunez D.O. Date of Service: 09/30/25 Procedure(s): US OB BPP w non-stress Accession Number(s): [id number] cc: ELIANA MARQUIS ; Alex Antunez D.O. [place] [address] Patient Name: DANETTE BLAS MRN: [id number] date: 2005 Sex: F Assigned Patient Location: [facility] Current Patient Location: Accession/Order Number: [id number] Exam Date: 09/30/2025 20:07 Report Date: 09/30/2025 22:14 At the request of: ALEX ANTUNEZ DO Procedure: US OB BPP w non-stress Ultrasound biophysical profile INDICATION: poor growth affecting management of mother COMPARISON: None FINDINGS/ IMPRESSION: Fetus is cephalic position.. cardiac eqdbuywm931 beats per minutes. KURTIS: 13.2 cm. Biophysical profile score 8/8. Impression dictated by: Marvel Encinas M.D. 09/30/2025 10:14 PM Dictation Location: [place] [address] Electronically authenticated by: [id number] Y Date: 2:14 Dictated By: Marvel Encinas M.D. Signed By:09/30/252215 DD/ 13 TD/TT: Mechanical Estimator: Authorizing ProviderResult TypeResult StatusCoredoreen Antunez DOCLINISYNC IMAGINGFinal Result documented in this encounter Visit Diagnoses Not on filedocumented in this encounter Care Teams Team MemberRelationshipSpecialtyStart DateEnd Date Eliana Marquis MD [address] [place] [address] PCP - GeneralFamily Medicine03/04/23documented as of this encounter
[2025-10-11 13:11] VITALS: BP 117/56; PULSE 83
== END 2025-10-11 13:46 | disposition home or self-care (01) ==
LOC: FBCO 13:01 → FBC 13:08
PROVIDERS: PCP Family Medicine; Visit Provider Obstetrics & Gynecology
DX: O36.5930 Maternal care for other known or suspected poor fetal growth, third trimester, not applicable or unspecified (principal)
CPT/HCPCS: 59025

== ENCOUNTER 2025-10-12 18:32 | Inpatient (IN) | payer OTHER, SELFPAY ==
--- OUTSIDE RECORDS SUMMARY | 2024-08-16 09:00 | XMS_ITS ---
Author Organization [facility] Address [address] [place] [address] Care Team Providers Care Motors And Generators Inspector Name Role Phone Bethany Wells Primary Care Provider Charlee Lawrence Unavailable [phone] REASON FOR VISIT 6 MONTHS Encounters Encounter Location Date Provider Diagnosis [facility] [address] [place] [address] 08/16/2024 Charlee Keithgamaliel Plan Of Treatment No Information Progress Notes * BDOB:11/2004 (20 yo F)Acc No.[id number]:08/16/2024 Patient:?LUCY :?Charlee LawrenceDOB:2005???Age:18 Y???Sex: FemaleDate:08/16/2024hone:[phone]:SUDHEER YU [id number]:Bethany Guerrero Subjective: * Chief Complaints: * 6 MONTHS * Electronic signature of Charlee Lawrence on 10/12/2025 at 06:38 PM ESTSign off status: Pending * Provider: Dru Lawrence Date: Generated for Printing/Faxing/eTransmitting on:?10/12/2025 06:38 PM EST
--- OUTSIDE RECORDS SUMMARY | 2025-04-27 05:00 | XMS_ITS ---
Author Organization [facility] Address [address] [place] [address] Care Team Providers Care Director Of Consulting Services Name Role Phone Bethany Wells Primary Care Provider [phone] Dr. Adolfo Reagan [facility] [phone] REASON FOR VISIT JAW AND TOOTH PAIN Encounters Encounter Location Date Provider Diagnosis [facility] [address] [place] [address] 04/27/2025 Adolfo Reagan Plan Of Treatment No Information Progress Notes * BDOB:11/2004 (20 yo F)Acc No.[id number]:04/27/2025 Patient:?AYALA :Yelena Reagan DDSDOB:2005???Age:19 Y???Sex: FemaleDate:04/27/2025Phone:[phone]:SUDHEER YU [id number]:Bethany Guerrero Subjective: * Chief Complaints: * J AW AND TOOTH PAIN Billing Information: * Procedure Codes: * Electronic signature of Dr. Adolfo Reagan , [facility], [id number] on 10/12/2025 at 06:39 PM ESTSign off status: Pending * Provider: Parrish Reagan DDS Date: 0 04/27/2025 Generated for Printing/Faxing/eTransmitting on:?10/12/2025 06:39 PM EST
--- OUTSIDE RECORDS SUMMARY | 2025-05-10 05:00 | XMS_ITS ---
Author Organization [facility] Address [address] [place] [address] Care Team Providers Care Geoscience Laboratory Technician Name Role Phone Bethany Wells Primary Care Provider [phone] Dr. Adolfo Reagan [facility] [phone] REASON FOR VISIT JAW AND TOOTH PAIN Encounters Encounter Location Date Provider Diagnosis [facility] [address] [place] [address] 05/10/2025 Adolfo Reagan Plan Of Treatment No Information Progress Notes * BDOB:11/2004 (20 yo F)Acc No.[id number]:05/10/2025 Patient:? :Yelena Reagan DDSDOB:2005???Age:19 Y???Sex: FemaleDate:05/10/2025Phone:[phone]:SUDHEER YU [id number]:Bethany Guerrero Subjective: * Chief Complaints: * J AW AND TOOTH PAIN * Electronic signature of Dr. Adolfo Reagan , [facility], [id number] on 10/12/2025 at 06:39 PM ESTSign off status: Pending * Provider: Parrish Reagan DDS Date: 0 05/10/2025 Generated for Printing/Faxing/eTransmitting on:?10/12/2025 06:39 PM EST
--- OUTSIDE RECORDS SUMMARY | 2025-10-06 14:40 | XMS_ITS | Encounter Summary ---
Author Organization [facility] Address [address] [facility] [place] [address] Care Team Providers Care Watch Engine Operator Name Role Phone Eliana Flanagan MD Primary Care Provider [phone] Reason for Visit * ReasonCommentsRoutine Visit Encounter Details DateTypeDepartmentCare Team (Latest Contact Info)Fazecixcqxq55/11/2025 2:40 PM ESTRoutine [facility] [address] [place] [address] Darlene Olmstead, CNC LATHE MACHINIST [address] [place] [address] Third trimester ([facility]); 38 weeks gestation of ([facility]) Social History Tobacco UseTypesPacks/DayYears UsedDateSmoking Tobacco: NeverPassive Smoke Exposure: NeverSmokeless Tobacco: NeverAlcohol UseStandard Drinks/WeekComments Never0 (1 standard drink = 0.6 oz pure alcohol)PHQ-2AnswerDate RecordedPatient Health Questionnaire-2 Nalhn059Estimated Date of Delivery SixhkdhmVdf90/19/2025Based on last menstrual period of 01/07/2025Sex and Gender InformationValueDate RecordedSex Assigned at BirthNot on fileLegal SexFemale 01/08/2023 6:51 PM EDTGender IdentityNot on fileSexual OrientationNot on file documented as of this encounter Last Filed Vital Signs Vital SignReadingTime TakenCommentsBlood Fvplhxym263/6210/06/2025 2:50 PM EST Pulse--Temperature--Respiratory Rate--Oxygen Saturation--Inhaled Oxygen Concentration--Ozvenm00.7 kg (169 lb)10/06/2025 2:50 PM ESTHeight--Body Mass [...] of fetus inconsistent with dates, antepartum ([facility]) 08/10/2025 Resolved Ambulatory Problems Diagnosis Date [...] nursing note reviewed. Exam conducted with a glove examiner present. Vitals: Estimated body mass index is 29.18 kg/m?? as calculated from the following: Height as of 04/05/25: 5' 4 . Weight as of 09/27/25: 170 lb. BP: Patient's last menstrual period was 01/07/2025. ASSESSMENT & PLAN ICD-10-CM 1. Third trimester ([facility]) Z34.93 2. 38 weeks gestation of ([facility]) Z3A.38 POCT urinalysis dipstick manually resulted Assessment/Plan [...] this encounter Visit Diagnoses Diagnosis Third trimester ([facility]) state, incidental 38 weeks gestation of ([facility]) documented in this encounter Care Teams Team MemberRelationshipSpecialtyStart DateEnd Date Eliana Flanagan MD [address] [place] [address] PCP - GeneralFamily Medicine03/04/23documented as of this encounter
--- OUTSIDE RECORDS SUMMARY | 2025-10-10 13:20 | XMS_ITS | Encounter Summary ---
Author Organization [facility] Address [address] [place] [address] Care Team Providers Care Multicultural Services Librarian Name Role Phone Eliana Flanagan MD Primary Care Provider [phone] Reason for Visit * ReasonCommentsRoutine Visit Encounter Details DateTypeDepartmentCare Team (Latest Contact Info)Lvtmneuqfhe01/15/2025 1:20 PM ESTRoutine [facility] [address] [place] [phone] Alex Antunez DO [address] Umm Willard, [facility]11 Third trimester ([facility]); 39 weeks gestation of ([facility]) Social History Tobacco UseTypesPacks/DayYears UsedDateSmoking Tobacco: NeverPassive Smoke Exposure: NeverSmokeless Tobacco: NeverAlcohol UseStandard Drinks/WeekComments Never0 (1 standard drink = 0.6 oz pure alcohol)PHQ-2AnswerDate RecordedPatient Health Questionnaire-2 Zhgav604Estimated Date of Delivery IwimwhnrTqv83/19/2025Based on last menstrual period of 01/07/2025Sex and Gender InformationValueDate RecordedSex Assigned at BirthNot on fileLegal SexFemale 01/08/2023 6:51 PM EDTGender IdentityNot on fileSexual OrientationNot on file documented as of this encounter Last Filed Vital Signs Vital SignReadingTime TakenCommentsBlood Kvxlqtfk242/7010/10/2025 1:36 PM EST Pulse--Temperature--Respiratory Rate--Oxygen Saturation--Inhaled Oxygen Concentration--Oegxmh89.6 kg (171 lb)10/10/2025 1:36 PM ESTHeight--Body Mass Index29.35004/05/2025 11:07 AM EDTdocumented in this encounter Progress Notes * Hilaria KeysADELE - 10/10/2025 1:20 PM EST Reason for Appointment: Patient [...] Size of fetus inconsistent with dates, antepartum ([facility]) 08/10/2025 Resolved Ambulatory Problems Diagnosis Date [...] SYSTEMS Review of Systems: Review of Systems All other systems reviewed and are negative. OBJECTIVE Objective: Physical Exam Constitutional: Appearance: Normal [...] nursing note reviewed. Exam conducted with a command center officer present. Vitals: Estimated body mass index is 29.35 kg/m?? as calculated from the following: Height as of 25: 5' 4 . Weight as of this encounter: 171 lb. BP: 112/70 Patient's last menstrual period was 01/07/2025. Assessment/Plan ICD-10-CM 1. Third trimester ([facility]) Z34.93 2. 39 weeks gestation of ([facility]) Z3A.39 POCT urinalysis dipstick manually resulted Assessment/Plan Return OB: Patient presents today for a routine obstetrics appointment. Patient is currently 39w3d . Patient states she is doing well but has complaints of being tired due to current . Patient has verbalizes frequent movement. labor precautions was discussed/given and patient was instructed to perform kick counts three times a day. Patient has had increased pressure and tingling feet. Orders Placed This Encounter Procedures POCT urinalysis dipstick manually resulted Follow Up: Patient is to return to office in 1 week for routine OB appointment. Documented by Hilaria Keys LPN on behalf of: Munira Yu PA-C documented in this encounter Plan of Treatment Not on file documented as of this encounter Procedures Procedure NamePriorityDate/TimeAssociated DiagnosisCommentsPOCT URINALYSIS WUHTGLELYgquotn69/15/2025 1:42 PM EST 39 weeks gestation of ([facility]) documented in this encounter Results * (ABNORMAL) POCT urinalysis dipstick manually resulted (10/10/2025 1:42 PM EST) ComponentValueRef RangeTest MethodAnalysis TimePerformed AtPathologist SignatureColor, UAYellowClarity, UAClearGlucose, UANegativeNegative - 2000(110) ++++ mg/dLBilirubin, UANegativeNegative - 4(70) +++ mg/dLKetones, UA NegativeNegative - 160(16) ++++ mg/dLSpec Grav, UA1.0101 - 1.03Blood, UA NegativeNegative - 50 Tarun/mcLpH, UA6.05 - 9Protein, UANegativeNegative - 2000(20) ++++ mg/dLUrobilinogen, UA1.00.2 - 12 mg/dLLeukocytes, UA1+Negative - 500+++ Joelle/mcLNitrite, UANegativeNegative - PositiveSpecimen (Source) Anatomical Location / LateralityCollection Method / VolumeCollection Time Received UuxbYwiqh87/15/2025 1:42 PM EST Narrative Authorizing ProviderResult TypeResult StatusCorey Tulio DOPOINT OF CARE TEST ENTER/EDIT ORDERABLESFinal Result documented in this encounter Visit Diagnoses Diagnosis Third trimester ([facility]) state, incidental 39 weeks gestation of ([facility]) documented in this encounter Care Teams Team MemberRelationshipSpecialtyStart DateEnd Date Eliana Flanagan MD [address] [facility] [address] [place] [address] PCP - GeneralFamily Medicine03/04/23documented as of this encounter
[2025-10-12] VITALS (12 sets, daily range): BP systolic 89–117; BP diastolic 55–65; PULSE 63–89
--- OUTSIDE RECORDS SUMMARY | 2025-10-12 18:38 | XMS_ITS | Encounter Summary ---
Author Organization [facility] Address [address] [facility] [place] [address] Care Team Providers Care Professor Of Finance Name Role Phone Eliana Flanagan MD Primary Care Provider [phone] Encounter Details DateTypeDepartmentCare Team (Latest Contact Info)Uqxzavxivot11/16/2025Telephone [facility] [address] [place] [address] Alex Antunez DO [address] [place], [facility] Social History Tobacco UseTypesPacks/DayYears UsedDateSmoking Tobacco: NeverPassive Smoke Exposure: NeverSmokeless Tobacco: NeverAlcohol UseStandard Drinks/WeekComments Never0 (1 standard drink = 0.6 oz pure alcohol)PHQ-2AnswerDate RecordedPatient Health Questionnaire-2 Esfwb557Estimated Date of Delivery KtqpbcspGrg64/19/2025Based on last menstrual period of 01/07/2025Sex and Gender InformationValueDate RecordedSex Assigned at BirthNot on fileLegal SexFemale 01/08/2023 6:51 PM EDTGender IdentityNot on fileSexual OrientationNot on file documented as of this encounter Miscellaneous Notes * Telephone Encounter - Hilaria Keys LPN - 10/11/2025 1:26 PM EST Estelita from [facility] called and she states that patient is there for NST and told them she was coming of IOL tomorrow and that they do not have her on schedule. Advised we were waiting for the patient to call us back to confirm that was good. Estelita spoke with patient and patient states that was ok. Estelitawas given orders and orders and IOL and episode sent over. * Telephone Encounter - Hilaria Keys LPN - 10/11/2025 11:56 AM EST Patient called and she states hat she missed a call from the office. Spoke with water resources technical officer and this was in regards to IOL on 10/12/2025 @ 630 pm deliver on 10/13/2025. Patient was called and left a detailed voicemail to enter at ER doors and will be sent upstairs.Message sent through [employer] for patient. documented in this encounter Plan of Treatment Not on file documented as of this encounter Visit Diagnoses Not on filedocumented in this encounter Care Teams Team MemberRelationshipSpecialtyStart DateEnd Date Eliana Flanagan MD [address] [facility] [address] [place] [address] PCP - GeneralFamily Medicine03/04/23documented as of this encounter
--- OUTSIDE RECORDS SUMMARY | 2025-10-12 18:39 | XMS_ITS | Encounter Summary ---
Author Organization [facility] Address [address] [facility] [place] [address] Care Team Providers Care Educational Consultant Name Role Phone Eliana Flanagan MD Primary Care Provider [phone] Encounter Details DateTypeDepartmentCare Team (Latest Contact Info)Zkafygvakfn17/16/2025bstract [facility] [address] [place] [address] Alex Antunez DO [address] [facility] [address] [place], [place] [address] Social History Tobacco UseTypesPacks/DayYears UsedDateSmoking Tobacco: NeverPassive Smoke Exposure: NeverSmokeless Tobacco: NeverAlcohol UseStandard Drinks/WeekComments Never0 (1 standard drink = 0.6 oz pure alcohol)PHQ-2AnswerDate RecordedPatient Health Questionnaire-2 Atjra965Estimated Date of Delivery EhjykhneMed93/19/2025Based on last menstrual period of 01/07/2025Sex and Gender InformationValueDate RecordedSex Assigned at BirthNot on fileLegal SexFemale 01/08/2023 6:51 PM EDTGender IdentityNot on fileSexual OrientationNot on file documented as of this encounter Plan of Treatment Not on file documented as of this encounter Visit Diagnoses Not on filedocumented in this encounter Care Teams Team MemberRelationshipSpecialtyStart DateEnd Date Eliana Flanagan MD [address] [facility] [address] [place] [address] PCP - GeneralFamily [facility]03/04/23documented as of this encounter
--- OUTSIDE RECORDS SUMMARY | 2025-10-12 18:39 | XMS_ITS | Clinical Summary ---
Author Organization [facility] Healthcare Address [address] [place] [address] Care Team Providers Care [employer] Field Technician Name Role Phone Eliana Marquis MD Primary Care Provider [phone] Allergies Active AllergyReactionsCriticalityNoted JnqiOazvcrpkUziojsnbajnUiaqnco95/12/2024 Medications MedicationSigDispense QuantityRefillsLast FilledStart DateEnd DateStatus MV-Min-Fe [...] DateSize of fetus inconsistent with dates, antepartum ([facility])08/10/2025PCOS (polycystic ovarian syndrome)09/07/2024urrent severe episode of major depressive disorder without psychotic features without prior ntaqcgp9112/30/2023Exercise-induced tvfjna44/05/2024Patellofemoral syndrome of right knee4Estimated Date of EbivhwsxPphfhyycSrd72/19/2025Based on last menstrual period of 01/07/2025 Encounters DateTypeDepartmentCare CnvfTqrxsnctgbf91/16/2025bstract [facility] [place] [facility] [address] [place] [address] Alex Antunez, DO 10/11/2025bstract [facility] [place] [facility] [address] [place] [address] Alex Antunez, DO 10/11/2025Telephone [facility] [place] [facility] [address] [place] [address] Alex Antunez, DO 10/10/2025 1:20 PM ESTRoutine [facility] [facility] [address] [place] [address] Alex Antunez, DO Third trimester ([facility]); 39 weeks gestation of ([facility])10/10/2025amboo flowsheet [facility] [address] [place] [address] Alex Antunez, DO 10/06/2025 2:40 PM ESTRoutine [facility] [place] [facility] [address] [place] [address] Darlene Olmstead NP Third trimester ([facility]); 38 weeks gestation of ([facility])10/06/2025linisync Result Encounter [facility]OM[facility] External Department Unsolicited Provider, Generic External Data 10/06/2025amboo flowsheet [facility] [address] [place] [address] Darlene Olmstead NP 09/30/2025linisync Result Encounter NOMS External Department Unsolicited Alex Antunez, DO 09/29/2025Telephone [facility] [place] [facility] [address] [place] [address] Anuja Green LPN 09/27/2025 11:00 AM ESTRoutine [facility] [address] [place] [address] Alex Antunez, DO Third trimester ([facility]); 37 weeks gestation of ([facility]); Poor growth affecting management of mother, antepartum, single or unspecified fetus ([facility])09/27/2025 10:00 AM ESTAncillary Procedure [facility] [address] [place] [address] Poor growth affecting management of mother in third trimester, single or unspecified fetus ([facility])09/21/2025Telephone [facility] [place] [facility] [address] [place] [address] Alex Antunez, 09/21/2025bstract [facility] [address] [place] [address] Alex Antunez, 09/20/2025 2:00 PM ESTRoutine [facility] [place] [facility] [address] [place] [address] Munira Yu PA Third trimester ([facility]); 36 weeks gestation of ([facility]); Poor growth affecting management of mother in third trimester, single or unspecified fetus ([facility])5Clinisync Result Encounter NOMS External Department Unsolicited Munira Yu PA 5Bamboo flowsheet [facility] [place] [facility] [address] [place] [address] Munira Yu PA 5Abstract [facility] [place] [facility] [address] [place] [address] Darlene Olmstead, MARION 09/19/2025Telephone [facility] [address] [place] [address] Darlene Olmstead, MARION 09/13/2025 9:20 AM ESTRoutine [facility] [place] [facility] [address] [place] [address] Alex Antunez, Third trimester ([facility]); 35 weeks gestation of ([facility]); Hematuria, gross09/13/2025amboo flowsheet [facility] [facility] [address] [place] [address] Alex Antunez DO 5Abstract [facility] [place] [facility] [address] [place] [address] Shani Hinds MA 5Clinisync Result Encounter NOMS External Department Unsolicited Darlene Olmstead, MARION 09/06/2025Telephone [facility] [place] [facility] [address] [place] [address] Shani Hinds MA 5Clinisync Result Encounter NOMS External Department Unsolicited Darlene Olmstead NP 08/26/2025Telephone [facility] [place] [facility] [address] [place] [address] Liliana Leahy MA 5Clinisync Result Encounter NOMS External Department Unsolicited Darlene Olmstead, MARION 08/25/2025 3:20 PM EDTRoutine [facility] [facility] [address] [place] [address] Munira Yu PA Urinary tract infection without hematuria, site unspecified (Primary Dx); Third trimester ([facility]); 32 weeks gestation of ([facility])08/25/2025amboo flowsheet [facility] [place] [facility] [address] [place] [place] [address] Munira Yu PA 08/22/2025linisync Result Encounter NOMS External Department Unsolicited TulioAlex, DO 08/22/2025Telephone [facility] [place] [facility] [address] [place] [address] Anuja Green LPN 08/19/2025linisync Result Encounter NOMS External Department Unsolicited Tulio, Alex, DO 08/11/2025 3:00 PM EDTRoutine [facility] [place] Sal[address] [facility] [place] [address] Munira Yu PA Third trimester ([facility]); 30 weeks gestation of ([facility])08/11/2025 2:30 PM EDTAncillary Procedure [facility] [place] [facility] [address] [place] [place] [address] Second trimester ([facility]); Cystitis; Size of fetus inconsistent with dates, antepartum ([facility])08/05/2025Patient Outreach [facility] [address] [place] [address] Munira Degroot LPN 08/04/2025bstract [facility] [address] [place] [address] Munira Degroot LPN 07/27/2025 1:50 PM EDTRoutine [facility] [place] [facility] [address] [place] [address] Darlene Olmstead NP Anemia, unspecified type (Primary Dx); 28 weeks gestation of ([facility]); Third trimester ([facility]); Elevated glucose tolerance test07/27/2025amboo flowsheet [facility] [place] [facility] [address] [place] [address] Darlene Olmstead NP 07/26/2025Telephone [facility] [place] [facility]ACA[facility] [address] [place] [address] [place] [address] Shani Hinds MA 07/25/2025linisync Result Encounter NOMS External Department Unsolicited Provider, Generic External Data 07/13/2025 3:20 PM EDTRoutine [facility] [place] [address] Alex Antunez DO Cystitis (Primary Dx); 26 weeks gestation of ([facility]); Second trimester ([facility]); Gastroesophageal reflux in ([facility]); Size of fetus inconsistent with dates, antepartum ([facility])07/13/2025amboo flowsheet [facility] [place] AGUSTIN [address] [place] [address] [place] [address] Alex Antunez DO from Last 3 Months Family History RelationNameStatusCommentsFatherAliveMotherAlive Social History Tobacco UseTypesPacks/DayYears UsedDateSmoking Tobacco: NeverPassive Smoke Exposure: NeverSmokeless Tobacco: Never Tobacco Cessation:Counseling Given: Yes Alcohol UseStandard Drinks/WeekCommentsNever0 (1 standard drink = 0.6 oz pure alcohol)PHQ-2AnswerDate RecordedPatient Health Questionnaire-2 Zkztp404 Estimated Date of FaxkhqhgTtsaeonmUlm07/19/2025Based on last menstrual period of 01/07/2025Sex and Gender InformationValueDate RecordedSex Assigned at BirthNot on fileLegal SrkXnxfws55/15/2023 6:51 PM EDTGender IdentityNot on file Sexual OrientationNot on file Last Filed Vital Signs Vital SignReadingTime TakenCommentsBlood Jsguqebt348/7012 1:36 PM EST Voogh7700 11:07 AM EDTTemperature--Respiratory Zzhh3918 11:07 AM EDTOxygen Uadwbiijbo65%04/05/2025 11:07 AM EDTInhaled Oxygen Concentration-- Dgyipt27.6 kg (171 lb)10/10/2025 1:36 PM OJUUiljpr961.6 cm (5' 4 )04/05/2025 11:07 AM EDTBody Mass Index29.35004/05/2025 11:07 AM EDT Plan of Treatment Health MaintenanceDue DateLast DoneCommentsPneumococcal Vaccine: Pediatrics (0 to 5 Years) and At-Risk Patients (6 to 64 Years) (1 of 2 - PCV)2023OVID- 19 Vaccine (1 - 2024-26 season)2025Influenza Vaccine (#1)2025 Procedures Procedure NamePriorityDate/TimeAssociated DiagnosisCommentsPOCT URINALYSIS SBSTILTCLsttvqd27/15/2025 1:42 PM EST 39 weeks gestation of ([facility]) US OB BPP W NON-HXXDHT7610/06/2025 5:07 PM EST US OB BPP W NON-OOLXHJ5109/30/2025 10:14 PM EST POCT URINALYSIS HFFNDTEPHfycibg36/02/2025 10:50 AM EST 37 weeks gestation of ([facility]) US OB FOLLOW UP TRANSABDOMINAL GQYILRPHQstxery73/02/2025 10:34 AM EST Poor growth affecting management of mother in third trimester, single or unspecified fetus ([facility]) POCT URINALYSIS WZDTPKRXSsrptmc07/25/2025 2:32 PM EST Third trimester ([facility]) STREP GP B CULTURE+SXVVReoksce49/25/2025 2:21 PM EST POCT URINALYSIS EGSZDETPHnbqfoq42/18/2025 9:38 AM EST 35 weeks gestation of ([facility]) YGROTHEAYNUVbqtzwn93/12/2025 9:57 AM EST CCF DOWTHKLQGuqsmbe29/12/2025 9:57 AM EST MLR HEMOGLOBIN I1DLcsyoua01/01/2025 12:50 PM EDT ALL CBC WITH AUTO IRLHEqmrerv61/31/2025 10:57 AM EDT POCT URINALYSIS QYIZCAAZKwgnats22/30/2025 3:40 PM EDT 32 weeks gestation of ([facility]) GLUCOSE TOLERANCE 3 UPPGVvsuvbx03/27/2025 8:44 AM EDT URINE CULTURE, QOITHWVNjnvkup39/24/2025 12:18 PM EDT [facility] URINE MICROSCOPIC YKRDApaduci09/24/2025 12:18 PM EDT [facility] UA (CLEAN/CATCH) MEDICAL CLAIMS PROCESSOR/MICRO IF IND.Ohyzljx3908/19/2025 12:18 PM EDT US OB FOLLOW UP TRANSABDOMINAL NKNPYDFEBmeysyn23/17/2025 12:55 PM EDT Second trimester ([facility]) Cystitis Size of fetus inconsistent with dates, antepartum ([facility]) POCT URINALYSIS ZSVTUGULDfcipun85/16/2025 3:21 PM EDT Third trimester ([facility]) POCT URINALYSIS HQFJGZAXZytzbsx17/01/2025 2:06 PM EDT 28 weeks gestation of ([facility]) GLUCOSE 1 BBRUAcfhtss03/29/2025 1:17 PM EDT ALL CBC WITH AUTO BYVVVtrjdrs04/29/2025 1:17 PM EDT URINARY TRACT INFECTION (HTRX)Emzpaec6607/13/2025 4:23 PM EDT POCT URINALYSIS PGRQBRYBZbruuwb11/17/2025 3:34 PM EDT 26 weeks gestation of ([facility]) Second trimester ([facility]) from Last 3 Months Results * (ABNORMAL) [...] Location / LateralityCollection Method / VolumeCollection TimeReceived XwqzDfvjm08/15/2025 1:42 PM EST Narrative Authorizing ProviderResult TypeResult StatusCorey Tulio DOPOINT OF CARE TEST ENTER/EDIT ORDERABLESFinal Result * US OB BPP W NON-STRESS (10/06/2025 5:07 PM EST) Only the most recent of2 resultswithin the time period is included. Anatomical RegionLateralityModalityOtherSpecimen (Source)Anatomical Location / LateralityCollection Method / VolumeCollection TimeReceived Time10/06/2025 5:07 PM EST Narrative 10/06/2025 5:09 PM EST [facility] ?[address] ? [place] [address] ? Ultrasound Report ? Signed ? Patient: AYALA,DANETTE B ?MR#: [id number] ?? : 2005 ?Acct:[id number] ?? Age/Sex: 20 / F ?ADM Date: 12/11/25 ?? Loc: [facility] ??250-1 ? Attending Dr: JEANNINE SHARPE M.D. ? Ordering Physician: JEANNINE SHARPE M.D. ?? Date of Service: 10/06/25 ?? Procedure(s): US OB BPP w non-stress ?? Accession Number(s): [id number] ? cc: ELIANA MARQUIS ; JEANNINE SHARPE M.D. ? [facility] ? [address] ? [place] [address] ? Patient Name: ?? DANETTE B AYALA ? MRN: [facility]:[id number] ? date: 2005 ?Sex: F ?? Assigned Patient Location: [facility] ?? Current Patient Location: [facility] ?? Accession/Order Number: [id number] ?? Exam Date: 10/06/2025 ??15:40 ?Report Date: [...] M.D. ??10/06/2025 5:07 PM ? Dictation Location: [facility]-- ? Electronically authenticated by: [id number] ??Y ?? Date: 10/06/2025 ??17:07 ? Dictated By: ?Marvel Encinas M.D. ? Signed By: ?10/06/25 1709 ? DD/ ? TD/TT: ? Trolley Worker: Procedure Note Radiology, Radiologist, MD - 10/06/2025 [place] [address] Ultrasound Report Signed Patient: DANETTE AYALA BMR#: [id number] : 2005Acct:[id number] Age/Sex: 20 / FADM Date: 10/06/25 Loc: [facility] 250-[address]: JEANNINE SHARPE M.D. Ordering Physician: JEANNINE SHARPE M.D. Date of Service: 10/06/25 Procedure(s): US OB BPP w non-stress Accession Number(s): [id number] cc: ELIANA MARQUIS ; JEANNINE SHARPE M.D. [address] [address] Patient Name: DANETTE AYALA MRN: [facility]:[id number] date: 2005 Sex: F Assigned Patient Location: [facility] Current Patient Location: [facility] Accession/Order Number: [id number] Exam Date: 10/06/2025 15:40 Report Date: 10/06/2025 17:07 At the request of: JEANNINE SHARPE MD Procedure: US OB BPP w non-stress Ultrasound biophysical profile INDICATION: Decreased movements COMPARISON: 09/30/2025 FINDINGS/ IMPRESSION: Fetus is cephalic position.. cardiac kiciiljb947 beats per minutes. KURTIS: 14.7 cm. Biophysical profile score 8/8. Impression dictated by: Marvel Encinas M.D. 10/06/2025 5:07 PM Dictation Location: [place] [address] Electronically authenticated by: [id number] Y Date: 7:07 Dictated By: Marvel Encinas M.D. Signed By:10/06/251708 DD/ 06 TD/TT: Trolley Worker: Authorizing ProviderResult TypeResult StatusGeneric External Data Provider [...] Camp MD Authorizing ProviderResult TypeResult StatusAmy Gigi FORREST OB US PROCEDURES Final Result * STREP [...] is noted.TBHSTREP GP B CULTURE+RFLX Performed at: [facility]ST[facility] GP B CULTURE+[id number] [place], [place] [id number] GP B CULTURE+RFLXLab Director: Nate Don PhD, Phone: [phone] (Source)Anatomical Location / Laterality Collection Method / VolumeCollection TimeReceived Time09/20/2025 2:21 PM EST 09/20/2025 9:00 PM EST Narrative CLINISYNC - 09/25/2025 1:08 PM EST Authorizing ProviderResult TypeResult StatusAmy Pendleton [facility] BLOOD ORDERABLES Final ResultPerforming OrganizationAddressCity/State/ZIP CodePhone Number CLINISYNC [facility] * (ABNORMAL) TRANSFERRIN (09/07/2025 9:57 AM EST)ComponentValueRef RangeTest MethodAnalysis TimePerformed AtPathologist HtryysrekWMLDYQZVCDP669(A)192 - 364 mg/dLTBHComment: Performed at: ??[facility] [address] [place], [place] ??[id number] Corner Block Cutter: Nate Don PhD, Phone: ??[phone] Specimen (Source)Anatomical Location / LateralityCollection Method / Volume Collection TimeReceived Time09/07/2025 9:57 AM EST09/07/2025 10:02 AM EST Narrative CLINISYNC - 09/08/2025 12:09 PM EST Authorizing ProviderResult TypeResult StatusDarleen Olmstead NPLAB BLOOD ORDERABLESFinal ResultPerforming OrganizationAddressCity/State/ZIP CodePhone Number CLINISYNC [facility] * (ABNORMAL) CCF FERRITIN (09/07/2025 9:57 AM EST)ComponentValueRef RangeTest MethodAnalysis TimePerformed AtPathologist SignatureFERRITIN6.0(L)8.0 - 252.0 ng/mLTBHSpecimen (Source)Anatomical Location / LateralityCollection Method / VolumeCollection TimeReceived Time09/07/2025 9:57 AM EST09/07/2025 10:02 AM EST Narrative CLINISYNC - 09/07/2025 11:54 AM EST Authorizing ProviderResult TypeResult StatusDarlene Olmstead NPCLINISYNCFinal ResultPerforming OrganizationAddressCity/State/ZIP CodePhone Number SYDNEY NICE * MLR HEMOGLOBIN A1C (08/27/2025 12:50 PM EDT)ComponentValueRef RangeTest Method Analysis TimePerformed AtPathologist SignatureGLYCOHEMOGLOBIN A1C4.94.5 - 6.2 %TBHComment: ADA RECOMMENDED LIMIT 4.0 - 6.0 ADA THERAPEUTIC TARGET < 7.0 ACTION SUGGESTED > 7.0 ESTIMATED AVERAGE CFCDLBK60ir/dLTBHSpecimen (Source)Anatomical Location / LateralityCollection Method / VolumeCollection TimeReceived Time08/27/2025 12:50 PM EDT110/27/2024 12:51 PM EDT Narrative SYDNEY - 08/27/2025 1:18 PM EDT Authorizing ProviderResult TypeResult StatusDarlene Olmstead NPCLINISYNCFinal ResultPerforming OrganizationAddressCity/State/ZIP CodePhone Number [place] NICE * (ABNORMAL) ALL CBC WITH AUTO DIFF [...] - 35.2 g/dLTBHTBH RDW13.611.0 - 15.0 %TBHTBH MIT907867 - 450 10 3/uLTBHTBH MPV11.19.5 - 13.5 [...] Ishan NPCLINISYNCFinal ResultPerforming OrganizationAddressCity/State/ZIP CodePhone Number CLINISYNC [facility] * GLUCOSE TOLERANCE 3 HOUR (08/22/2025 8:44 [...] ORDERABLES Final ResultPerforming OrganizationAddressCity/State/ZIP CodePhone Number SYDNEY NICE * (ABNORMAL) URINE CULTURE, ROUTINE (08/19/2025 12:18 [...] Dicloxacillin, NafcillinTBHURINE CULTURE, ROUTINE*Beta-lactam combination agents, such as:H URINE CULTURE, ROUTINEAmoxicillin-clavulanic acid, Ampicillin-sulbactam,TBHURINE CULTURE, ROUTINEPiperacillin-tazobactamTBHURINE [...] ??O:CNSNSS Isolated TBHURINE CULTURE, ROUTINEPerformed at: - [facility]TBHURINE CULTURE, OZPZWZS[address] [place], [place] [id number] CULTURE, ROUTINELab Director: Nate Don PhD, Phone: [phone] CULTURE, ROUTINE Organism: ??1.1 Antibiotic ? Interpretation [...] CLINISYNC [facility] * (ABNORMAL) [facility] UA (CLEAN/CATCH) MEDICAL CLAIMS PROCESSOR/MICRO IF IND. (08/19/2025 12:18 PM EDT) ComponentValueRef [...] OrganizationAddressCity/State/ZIP CodePhone Number CLINISYNC [facility] * (ABNORMAL) GLUCOSE 1 HOUR (07/25/2025 1:17 PM EDT)ComponentValueRef RangeTest MethodAnalysis TimePerformed AtPathologist SignatureGLUCOSE 1 KUFQ979(H)<130 mg/dLTBHSpecimen (Source)Anatomical Location / LateralityCollection Method / VolumeCollection TimeReceived Time07/25/2025 1:17 PM EDT07/25/2025 1:19 PM EDT Narrative PATITOISYNC - 07/25/2025 1:47 PM EDT Authorizing ProviderResult TypeResult StatusCorey Tulio DOLAB BLOOD ORDERABLES Final ResultPerforming OrganizationAddressCity/State/ZIP CodePhone Number SYDNEY [facility] * URINARY TRACT INFECTION (HTRX) (07/13/2025 4:23 PM EDT)ComponentValueRef Range Test MethodAnalysis TimePerformed AtPathologist SignatureACINETOBACTER VOCHFZQG735.961 - 24.689 ppm07/15/2025 7:29 AM EDTHealthTrackRx at [facility] ACINETOBACTER BAUMANIINot Slmetumg63.961 - 24.689 ppm07/15/2025 7:29 AM EDT [facility] at LabPortCITROBACTER BBLQLBGS082.000 - 32.015 ppm07/15/2025 7:29 AM EDTHealthTrackRx at LabPortCITROBACTER FREUNDIINot Cwfawikm14.000 - 32.015 ppm07/15/2025 7:29 AM EDTHealthTrackRx at LabPortENTEROBACTER AEROGENES, SCTYTMT529.000 - 32.290 ppm07/15/2025 7:29 AM EDTHealthTrackRx at LabPortENTEROBACTER AEROGENES, CLOACAENot Qsugxmcz47.000 - 32.290 ppm 07/15/2025 7:29 AM EDTHealthTrackRx at LabPortENTEROCOCCUS FAECALIS, FAECIUM0 26.000 - 33.043 ppm07/15/2025 7:29 AM EDTHealthTrackRx at LabPortENTEROCOCCUS FAECALIS, FAECIUMNot Keaqzwrp60.000 - 33.043 ppm07/15/2025 7:29 AM EDT [facility] at LabPortESCHERICHIA VJLY964.000 - 28.500 ppm07/15/2025 7:29 AM EDTHealthTrackRx at LabPortESCHERICHIA COLINot Bxleljux29.000 - 28.500 ppm 07/15/2025 7:29 AM EDTHealthTrackRx at LabPortKLEBSIELLA PNEUMONIAE, OXYTOCA0 23.000 - 31.865 ppm07/15/2025 7:29 AM EDTHealthTrackRx at LabPortKLEBSIELLA PNEUMONIAE, OXYTOCANot Oqrfxjct82.000 - 31.865 ppm07/15/2025 7:29 AM EDT [facility] at LabPortMORGANELLA IMGXNTWQ862.961 - 24.689 ppm07/15/2025 7:29 AM EDTHealthTrackRx at LabPortMORGANELLA MORGANIINot Wsrbxtpq71.961 - 24.689 ppm07/15/2025 7:29 AM EDTHealthTrackRx at LabPortPROTEUS MIRABILIS, VULGARIS0 23.000 - 28.500 ppm07/15/2025 7:29 AM EDTHealthTrackRx at LabPortPROTEUS MIRABILIS, VULGARISNot Pvoqbeva79.000 - 28.500 ppm07/15/2025 7:29 AM EDT [facility] at LabPortPSEUDOMONAS XLTVQYKOZC720.000 - 31.801 ppm07/15/2025 7:29 AM EDTHealthTrackRx at LabPortPSEUDOMONAS AERUGINOSANot Wjskdwjc33.000 - 31.801 ppm07/15/2025 7:29 AM EDTHealthTrackRx at LabPortSTAPHYLOCOCCUS AUREUS0 26.000 - 31.595 ppm07/15/2025 7:29 AM EDTHealthTrackRx at [facility] STAPHYLOCOCCUS AUREUSNot Upwfgclk12.000 - 31.595 ppm07/15/2025 7:29 AM EDT [facility] at LabPortSTREPTOCOCCUS AGALACTIAE (GROUP B STREP)026.000 - 32.435 ppm07/15/2025 7:29 AM EDTHealthTrackRx at LabPortSTREPTOCOCCUS AGALACTIAE (GROUP B STREP)Not Bvorrwyt73.000 - 32.435 ppm07/15/2025 7:29 AM EDTHealthTrackRx at LabPortCANDIDA ALBICANS, PARAPSILOSIS, DTWEAEFKRL218.000 - 30.347 ppm07/15/2025 7:29 AM EDTHealthTrackRx at LabPortCANDIDA ALBICANS, PARAPSILOSIS, TROPICALISNot Jydfexbe63.000 - 30.347 ppm07/15/2025 7:29 AM EDT [facility] LabPortCANDIDA LEFQUPKM908.000 - 31.618 ppm07/15/2025 7:29 AM EDTHealthTrackRx at LabPortCANDIDA GLABRATANot Enocbviu59.000 - 31.618 ppm 07/15/2025 7:29 AM EDTHealthTrackRx at LabPortCANDIDA BSMWJY837.000 - 30.873 ppm07/15/2025 7:29 AM EDTHealthTrackRx at LabPortCANDIDA KRUSEINot Detected 23.000 - 30.873 ppm07/15/2025 7:29 AM EDTHealthTrackRx at LabPortSERRATIA EQCSRLGVLF921.000 - 31.581 ppm07/15/2025 7:29 AM EDTHealth[facility] at [facility] SERRATIA MARCESCENSNot Pcnvmqtw67.000 - 31.581 ppm07/15/2025 7:29 AM EDT [facility] at LabPortSTREPTOCOCCUS PYOGENES (GROUP A STREP)019.961 - 24.689 ppm07/15/2025 7:29 AM EDTHealthTrackRx at LabPortSTREPTOCOCCUS PYOGENES (GROUP A STREP)Not Lmkajkus00.961 - 24.689 ppm07/15/2025 7:29 AM EDTHealthTrackRx at LabPortSTAPHYLOCOCCUS EPIDERMIDIS, HAEMOLYTICUS, LUGDUNENSIS, SAPROPHYTICUS (ATNAW079.961 - 24.689 ppm07/15/2025 7:29 AM EDTHealth[facility] at [facility] STAPHYLOCOCCUS EPIDERMIDIS, HAEMOLYTICUS, LUGDUNENSIS, SAPROPHYTICUS (URINANot Hfufscmf65.961 - 24.689 ppm07/15/2025 7:29 AM EDTHealth[facility] at [facility] STAPHYLOCOCCUS EPIDERMIDIS, HAEMOLYTICUS, LUGDUNENSIS, SAPROPHYTICUS (URINA0 19.961 - 24.689 ppm09 7:29 AM EDTHealth[facility] STAPHYLOCOCCUS EPIDERMIDIS, HAEMOLYTICUS, LUGDUNENSIS, SAPROPHYTICUS (URINANot Vawydoyv62.961 - 24.689 ppm07/15/2025 7:29 AM EDTHealthTrackRx at [facility]Ind[facility] Specimen (Source)Anatomical Location / LateralityCollection Method / Volume Collection TimeReceived PmfhCnyrd41/17/2025 4:23 PM EDT07/15/2025 1:30 AM EDT Narrative Authorizing ProviderResult TypeResult StatusDarlene Olmstead NPLAB BLOOD ORDERABLESFinal ResultPerforming OrganizationAddressCity/State/ZIP CodePhone Number [facility] [address] [address] from Last 3 Months Insurance Care Teams Team MemberRelationshipSpecialtyStart DateEnd Date Eliana Marquis MD [address] [facility] [address] [place] [address] PCP - GeneralFamiChildren's Healthcare of [facility]gl[facility]03/04/23
--- OUTSIDE RECORDS SUMMARY | 2025-10-12 18:39 | XMS_ITS | Encounter Summary ---
Author Organization [facility] Address [address] [place] [address] Care Team Providers Care Data Analysis Assistant Name Role Phone Eliana Marquis MD Primary Care Provider [phone] Encounter Details DateTypeDepartmentCare Team (Latest Contact Info)Vfmfldhyxnf92/11/2025linisync Result Encounter [facility] External Department Unsolicited Provider, Generic External Data Social History Tobacco UseTypesPacks/DayYears UsedDateSmoking Tobacco: NeverPassive Smoke Exposure: NeverSmokeless Tobacco: NeverAlcohol UseStandard Drinks/WeekComments Never0 (1 standard drink = 0.6 oz pure alcohol)PHQ-2AnswerDate RecordedPatient Health Questionnaire-2 Tolrj331Estimated Date of Delivery JckzfhliCvv15/19/2025Based on last menstrual period of 01/07/2025Sex and Gender InformationValueDate RecordedSex Assigned at BirthNot on fileLegal SexFemale 01/08/2023 6:51 PM EDTGender IdentityNot on fileSexual OrientationNot on file documented as of this encounter Plan of Treatment Not on file documented as of this encounter Procedures Procedure NamePriorityDate/TimeAssociated DiagnosisCommentsUS OB BPP W NON-FOWULB5110/06/2025 5:07 PM EST documented in this encounter Results * US OB BPP W NON-STRESS (10/06/2025 5:07 PM EST)Anatomical Region LateralityModalityOtherSpecimen (Source)Anatomical Location / Laterality Collection Method / VolumeCollection TimeReceived Time12/08/2025 5:07 PM EST Narrative 10/06/2025 5:09 PM EST [facility] ?[address] ? [place] [address] ? Ultrasound Report ? Signed ? Patient: BLAS,DANETTE B ?MR#: [id number] ?? : 2005 ?Acct:[id number] ?? Age/Sex: 20 / F ?ADM Date: 10/06/25 ?? Loc: [facility]BC ??250-1 ? Attending Dr: JEANNINE SHARPE M.D. ? Ordering Physician: JEANNINE SHARPE M.D. ?? Date of Service: 10/06/25 ?? Procedure(s): US OB BPP w non-stress ?? Accession Number(s): [id number] ? cc: ELIANA MARQUIS ; JEANNINE SHARPE M.D. ? [facility] ? [address] ? [place] [address] ? Patient Name: ?? DANETTE B BLAS ? MRN: [facility]:[id number] ? date: 2005 ?Sex: F ?? Assigned Patient Location: [facility] ?? Current Patient Location: [facility] ?? Accession/Order Number: [id number] ?? Exam Date: 10/06/2025 ??15:40 ?Report Date: [...] M.D. ??10/06/2025 5:07 PM ? Dictation Location: [facility]-PC-29 ? Electronically authenticated by: [id number] ??Y ?? Date: 10/06/2025 ??17:07 ? Dictated By: ?Marvel Encinas M.D. ? Signed By: ?10/06/25 1709 ? DD/ 06 ? TD/TT: ? Longitudinal Float Operator: Procedure Note Radiology, Radiologist, MD - 10/06/2025 [place] [address] Ultrasound Report Signed Patient: BLASDANETTE BMR#: [id number] : 2005Acct:[id number] Age/Sex: 20 / FADM Date: 10/06/25 Loc: [facility] 250-[address]: JEANNINE SHARPE M.D. Ordering Physician: JEANNINE SHARPE M.D. Date of Service: 10/06/25 Procedure(s): US OB BPP w non-stress Accession Number(s): [id number] cc: ELIANA MARQUIS ; JEANNINE SHARPE M.D. [place] [address] Patient Name: DANETTE BLAS MRN: [id number] date: 2005 Sex: F Assigned Patient Location: [facility] Current Patient Location: [facility] Accession/Order Number: [id number] Exam Date: 10/06/2025 15:40 Report Date: 10/06/2025 17:07 At the request of: JEANNINE SHARPE MD Procedure: US OB BPP w non-stress Ultrasound biophysical profile INDICATION: Decreased movements COMPARISON: 09/30/2025 FINDINGS/ IMPRESSION: Fetus is cephalic position.. cardiac beats per minutes. KURTIS: 14.7 cm. Biophysical profile score 8/8. Impression dictated by: Marvel Encinas M.D. 10/06/2025 5:07 PM Dictation Location: [place] [address] Electronically authenticated by: [id number] Y Date: 7:07 Dictated By: Marvel Encinas M.D. Signed By:10/06/251708 DD/ 06 TD/TT: Longitudinal Float Operator: Authorizing ProviderResult TypeResult StatusGeneric External Data Provider CLINISYNC IMAGINGFinal Result documented in this encounter Visit Diagnoses Not on filedocumented in this encounter Care Teams Team MemberRelationshipSpecialtyStart DateEnd Date Eliana Marquis MD [address] [facility] [address] [place] [address] PCP - GeneralFamily Medicine03/04/23documented as of this encounter
--- OUTSIDE RECORDS SUMMARY | 2025-10-12 18:39 | XMS_ITS | Encounter Summary ---
Author Organization [facility] Address [address] [place] [address] Care Team Providers Care Customer Marketing Assistant Name Role Phone Eliana Flanagan MD Primary Care Provider [phone] Encounter Details DateTypeDepartmentCare Team (Latest Contact Info)Pnzqhtdpjyk27/04/2025Telephone [facility] [address] [place] [address] [place] [address] Anuja Green LPN Social History Tobacco UseTypesPacks/DayYears UsedDateSmoking Tobacco: NeverPassive Smoke Exposure: NeverSmokeless Tobacco: NeverAlcohol UseStandard Drinks/WeekComments Never0 (1 standard drink = 0.6 oz pure alcohol)PHQ-2AnswerDate RecordedPatient Health Questionnaire-2 Qxuob797Estimated Date of Delivery KpqfrijrLqz44/19/2025Based on last menstrual period of 01/07/2025Sex and [...] PM EST 5:20pm Was given message from [facility] that patient had called office requesting call [...] MemberRelationshipSpecialtyStart DateEnd Date Eliana Flanagan MD [address] [address] PCP - GeneralFamily Medicine03/04/23documented as of this encounter
--- OUTSIDE RECORDS SUMMARY | 2025-10-12 18:39 | XMS_ITS | Encounter Summary ---
Author Organization [facility] Address [address] [facility] [place] [address] Care Team Providers Care Olericulturist Name Role Phone Eliana Flanagan MD Primary Care Provider [phone] Encounter Details DateTypeDepartmentCare Team (Latest Contact Info)Ktjgdctsxwr96/16/2025bstract [facility] [address] [facility] [place] [address] Alex Antunez DO [address] [place], [place] [address] Social History Tobacco UseTypesPacks/DayYears UsedDateSmoking Tobacco: NeverPassive Smoke Exposure: NeverSmokeless Tobacco: NeverAlcohol UseStandard Drinks/WeekComments Never0 (1 standard drink = 0.6 oz pure alcohol)PHQ-2AnswerDate RecordedPatient Health Questionnaire-2 Dovpp297Estimated Date of Delivery PuvjnztyAmo43/19/2025Based on last menstrual period of 01/07/2025Sex and Gender InformationValueDate RecordedSex Assigned at BirthNot on fileLegal SexFemale 01/08/2023 6:51 PM EDTGender IdentityNot on fileSexual OrientationNot on file documented as of this encounter Plan of Treatment Not on file documented as of this encounter Visit Diagnoses Not on filedocumented in this encounter Care Teams Team MemberRelationshipSpecialtyStart DateEnd Date Eliana Flanagan MD [address] [facility] [address] [place] [address] PCP - GeneralFamily [facility]03/04/23documented as of this encounter
--- OUTSIDE RECORDS SUMMARY | 2025-10-12 18:39 | XMS_ITS | Encounter Summary ---
Author Organization [facility] Address [address] [facility] [place] [address] Care Team Providers Care Client Delivery Specialist Name Role Phone Eliana Flanagan MD Primary Care Provider [phone] Encounter Details DateTypeDepartmentCare Team (Latest Contact Info)Xefnzoxhfij65/15/2025amboo flowsheet [facility] [address] [facility] [place] [address] Alex Antunez DO [address] [facility] [address] [place], [place] [address] Social History Tobacco UseTypesPacks/DayYears UsedDateSmoking Tobacco: NeverPassive Smoke Exposure: NeverSmokeless Tobacco: NeverAlcohol UseStandard Drinks/WeekComments Never0 (1 standard drink = 0.6 oz pure alcohol)PHQ-2AnswerDate RecordedPatient Health Questionnaire-2 Aavnp322Estimated Date of Delivery KwrctaymDop11/19/2025Based on last menstrual period of 01/07/2025Sex and Gender InformationValueDate RecordedSex Assigned at BirthNot on fileLegal SexFemale 01/08/2023 6:51 PM EDTGender IdentityNot on fileSexual OrientationNot on file documented as of this encounter Plan of Treatment Not on file documented as of this encounter Visit Diagnoses Not on filedocumented in this encounter Care Teams Team MemberRelationshipSpecialtyStart DateEnd Date Eliana Flanagan MD [address] [facility] 110 [place] [address] PCP - GeneralFamily Medicine03/04/23documented as of this encounter
--- OUTSIDE RECORDS SUMMARY | 2025-10-12 18:39 | XMS_ITS | Encounter Summary ---
Author Organization [facility] Address [address] [facility] [place] [address] Care Team Providers Care Patternmaker Bench Name Role Phone Eliana Flanagan MD Primary Care Provider [phone] Encounter Details DateTypeDepartmentCare Team (Latest Contact Info)Gzlchqdejoa50/11/2025Bamboo flowsheet [facility] [address] [address] [address] Darlene Olmstead, MARION [address] [facility] [place] [address] Social History Tobacco UseTypesPacks/DayYears UsedDateSmoking Tobacco: NeverPassive Smoke Exposure: NeverSmokeless Tobacco: NeverAlcohol UseStandard Drinks/WeekComments Never0 (1 standard drink = 0.6 oz pure alcohol)PHQ-2AnswerDate RecordedPatient Health Questionnaire-2 Vfwjd235Estimated Date of Delivery KdcddrbdBze76/19/2025Based on last menstrual period of 01/07/2025Sex and Gender InformationValueDate RecordedSex Assigned at BirthNot on fileLegal SexFemale 01/08/2023 6:51 PM EDTGender IdentityNot on fileSexual OrientationNot on file documented as of this encounter Plan of Treatment Not on file documented as of this encounter Visit Diagnoses Not on filedocumented in this encounter Care Teams Team MemberRelationshipSpecialtyStart DateEnd Date Eliana Flanagan MD [address] [facility] 110 [place] [address] PCP - GeneralFamily Medicine03/04/23documented as of this encounter
--- OUTSIDE RECORDS SUMMARY | 2025-10-12 18:39 | XMS_ITS | Encounter Summary ---
Author Organization [facility] Address [address] [place] [address] Care Team Providers Care Independent Jeweler Name Role Phone Eliana Marquis MD Primary Care Provider [phone] Encounter Details DateTypeDepartmentCare Team (Latest Contact Info)Tmcrmbdcjpa63/05/2025linisync Result Encounter [facility] External Department Unsolicited Alex Antunez, DO [address] [facility] [place] [address] Social History Tobacco UseTypesPacks/DayYears UsedDateSmoking Tobacco: NeverPassive Smoke Exposure: NeverSmokeless Tobacco: NeverAlcohol UseStandard Drinks/WeekComments Never0 (1 standard drink = 0.6 oz pure alcohol)PHQ-2AnswerDate RecordedPatient Health Questionnaire-2 Cvdvi841Estimated Date of Delivery QxxmvpaqYri95/19/2025Based on last menstrual period of 01/07/2025Sex and Gender InformationValueDate RecordedSex Assigned at BirthNot on fileLegal SexFemale 01/08/2023 6:51 PM EDTGender IdentityNot on fileSexual OrientationNot on file documented as of this encounter Plan of Treatment Not on file documented as of this encounter Procedures Procedure NamePriorityDate/TimeAssociated DiagnosisCommentsUS OB BPP W NON-ABZWYW5109/30/2025 10:14 PM EST documented in this encounter Results * US OB BPP W NON-STRESS (09/30/2025 10:14 PM EST)Anatomical Region LateralityModalityOtherSpecimen (Source)Anatomical Location / Laterality Collection Method / VolumeCollection TimeReceived Time09/30/2025 10:14 PM EST Narrative 09/30/2025 10:16 PM EST [facility] ?[address] ? [place] [address] ? Ultrasound Report ? Signed ? Patient: BLAS,DANETTE B ?MR#: [id number] ?? : 2005 ?Acct:[id number] ?? Age/Sex: 20 / F ?ADM Date: 09/30/25 ?? Loc: ? Attending Dr: Alex Antunez D.O. ? Ordering Physician: Alex Antunez D.O. ?? Date of Service: 09/30/25 ?? Procedure(s): US OB BPP w non-stress ?? Accession Number(s): [id number] ? cc: ELIANA MARQUIS ; Alex Antunez D.O. ? [facility] ? [address] ? [place] [address] ? Patient Name: ?? DANETTE B BLAS ? MRN: [facility]:[id number] ? date: 2005 ?Sex: F ?? Assigned Patient Location: [facility] ?? Current Patient Location: ? Accession/Order Number: [id number] ?? Exam Date: 09/30/2025 ??20:07 ?Report Date: [...] Dictation Location: [facility]-PC-29 ? Electronically authenticated by: [id number] ??Y ?? Date: 09/30/2025 ??22:14 ? Dictated By: ?Marvel Encinas M.D. ? Signed By: ?09/30/25 2216 ? DD/ 13 ? TD/TT: ? Roofing Sales Representative: Procedure Note Radiology, Radiologist, MD - 09/30/[address] [address] Ultrasound Report Signed Patient: DANETTE BLAS BMR#: [id number] : 2005Acct:[id number] Age/Sex: 20 / FADM Date: 09/30/25 Loc: US Attending Dr: Alex Antunez D.O. Ordering Physician: Alex Antunez D.O. Date of Service: 09/30/25 Procedure(s): US OB BPP w non-stress Accession Number(s): [id number] cc: ELIANA MARQUIS ; Alex Antunez D.O. [place] [address] Patient Name: DANETTE BLAS MRN: [id number] date: 2005 Sex: F Assigned Patient Location: [facility] Current Patient Location: Accession/Order Number: [id number] Exam Date: 09/30/2025 20:07 Report Date: 09/30/2025 22:14 At the request of: ALEX ANTUNEZ DO Procedure: US OB BPP w non-stress Ultrasound biophysical profile INDICATION: poor growth affecting management of mother COMPARISON: None FINDINGS/ IMPRESSION: Fetus is cephalic position.. cardiac ponghnsm925 beats per minutes. KURTIS: 13.2 cm. Biophysical profile score 8/8. Impression dictated by: Marvel Encinas M.D. 09/30/2025 10:14 PM Dictation Location: [place] [address] Electronically authenticated by: [id number] Y Date: 2:14 Dictated By: Marvel Encinas M.D. Signed By:09/30/252215 DD/ 13 TD/TT: Roofing Sales Representative: Authorizing ProviderResult TypeResult StatusCoredoreen Antunez DOCLINISYNC IMAGINGFinal Result documented in this encounter Visit Diagnoses Not on filedocumented in this encounter Care Teams Team MemberRelationshipSpecialtyStart DateEnd Date Eliana Marquis MD [address] [place] [address] PCP - GeneralFamily Medicine03/04/23documented as of this encounter
--- OUTSIDE RECORDS SUMMARY | 2025-10-12 18:39 | XMS_ITS | Patient Health Record ---
Author Organization [facility] Address [address] [place] [address] Care Team Providers Care Playback Operator Name Role Phone Bethany Wells Primary Care Provider [phone] Dr. Adolfo Reagan Unavailable [phone] Reason For Referral No Information Plan Of Treatment No Information Insurance Providers Payer Name Payer Address Payer Phone Subscriber Number Group Number Insured Name Patient Relationship to Insured Coverage Start Date Coverage End Date [employer] [address] [address] [place] [address] [id number] JUNIOR TREJO DANETTE Self - patient is the insured 3 Dental Wrap [facility] [address] [place] [id number] [id number], lf - patient is the opukcon2111/27/2022zAnthem BC Medicaid-termed 11/26/22[address] [place] [phone] AYALA, lf - patient is the ewdpqjg87zDENTAL DQ [place]-termed 11/26/22[address] [place] [phone] [id number], lf - [facility] after [place]-termed 11/26/22[address] [place] [id number], AUTUMNSelf - patient is the [id number] [place] DQ Terminated 10/26/24 [address] [place] [id number] AYALA, Roland - patient is the [id number] Wrap [facility] [place] BCBS Termed [address] [place] [phone] [id number], AUTUMNSelf - patient is the penjunk0911/27/2022 09/25/2023
[2025-10-12 19:51] LABS: Cannabinoid Screen Urine NEGATIVE (NEGATIVE); Methamphetamines Screen Urine NEGATIVE (NEGATIVE); Tricyclic Antidepressant Urine NEGATIVE (NEGATIVE)
[2025-10-12] MEDS: MISOPROSTOL 100 MCG TABLET 25 MCG VAGINAL ×2 (20:13→23:22)
[2025-10-12 20:28] LABS: Hematocrit 29.5 % (36.0-48.0); Hemoglobin 9.6 g/dL (12.0-16.0); Mean Corpuscular HGB Conc 32.5 g/dL (29.9-35.2); Mean Corpuscular Hemoglobin 25.7 pg (26.7-34.0); Mean Corpuscular Volume 79.1 fL (81.0-99.0); Platelet Count 143 10^3/uL (150-450); Red Blood Count 3.73 10^6/uL (4.20-5.40); White Blood Count 7.3 10^3/uL (4.0-11.0)
[2025-10-13] VITALS (30 sets, daily range): BP systolic 86–131; BP diastolic 48–84; PULSE 60–87; TEMP 35.8–36.9
[2025-10-13] MEDS: MISOPROSTOL 100 MCG TABLET 25 MCG VAGINAL (02:23)
[2025-10-13] MEDS: 0.9 % SODIUM CHLORIDE 1,000 ML 125 ML IV ×2 (04:29→10:15)
[2025-10-13] MEDS: OXYTOCIN/0.9 % SODIUM CHLORIDE 10 UNITS/500 ML PLAST..BAG 6 UNIT IV (06:14)
[2025-10-13] MEDS: LIDOCAINE HCL 1% 200 MG/20 ML MDV INJ (11:19)
[2025-10-13] MEDS: OXYTOCIN/0.9 % SODIUM CHLORIDE 20 UNITS/1,000 ML PLAST..BAG 999 UNIT IV (11:24)
--- NOTE | 2025-10-13 12:06 | PM.OBPRCVD ---
Procedure Intrapartal events: None Induction method: per misoprostol protocol Delivery augmentation: rupture of membranes and pitocin Delivery monitor: external FHT and external uterine Route of delivery: Episiotomy Description: midline L&D Laceration Description: perineal - 2nd degree Delivery repair: Vicryl Estimated blood loss (mL): 200 Anesthesia type: None Disposition: floor presentation: vertex
--- NOTE | 2025-10-13 12:08 | PM.OBPRCVD ---
Procedure Intrapartal events: None Induction method: per misoprostol protocol Delivery augmentation: rupture of membranes and pitocin Delivery monitor: external FHT and external uterine Route of delivery: Episiotomy Description: midline L&D Laceration Description: perineal - 2nd degree Delivery repair: Vicryl Estimated blood loss (mL): 200 Anesthesia type: None Disposition: PACU Infant Delivery date: 10/13/25 Gender: male presentation: vertex Placental delivery description: Spontaneous cord description: 3 Vessels
[2025-10-13] MEDS: IBUPROFEN 600 MG TABLET PO ×2 (12:40→19:00)
[2025-10-13] MEDS: GLYCERIN/WITCH HAZEL PADS 1 PAD TOPICAL (12:41)
[2025-10-13] MEDS: BENZOCAINE/MENTHOL 85 GRAM SPRAY BOTTLE 1 APPLIC TOPICAL (12:41)
[2025-10-13] MEDS: ACETAMINOPHEN 325 MG TABLET 650 MG PO (21:36)
[2025-10-14] MEDS: IBUPROFEN 600 MG TABLET PO ×4 (01:07→22:57)
[2025-10-14 06:43] VITALS: BP 98/56; PULSE 66
[2025-10-14 06:43] LABS: Hematocrit 26.5 % (36.0-48.0); Hemoglobin 8.5 g/dL (12.0-16.0); Immature Granulocytes Abs Auto 0.04 10^3/uL (0.00-0.03); Immature Granulocytes Pct Auto 0.4 % (0.0-0.5); Lymphocytes Absolute Auto 1.1 10^3/uL (1.2-3.8); Mean Corpuscular HGB Conc 32.1 g/dL (29.9-35.2); Mean Corpuscular Hemoglobin 26.2 pg (26.7-34.0); Mean Corpuscular Volume 81.5 fL (81.0-99.0); Platelet Count 121 10^3/uL (150-450); Red Blood Count 3.25 10^6/uL (4.20-5.40); White Blood Count 9.4 10^3/uL (4.0-11.0)
--- NOTE | 2025-10-14 07:43 | PM.OBPN ---
OB - PN: Subj Subjective Patient comments: no complaints and pain well controlled [place] status: doing well Exam Constitutional Vital Signs, click to edit/add: Last Vital Signs Temp 97.8 F 10/13/25 17:58 Pulse 66 10/14/25 06:43 BP 98/56 10/14/25 06:43 O2 Del Method Room Air 10/14/25 05:30 Documenting provider has reviewed patient's vital signs: yes Common normals: no apparent distress Respiratory Common normals: normal respiratory effort and clear to auscultation bilaterally Cardio Common normals: regular rate and regular rhythm GI Common normals: Normal to inspection, nondistended, normoactive bowel sounds present Extremity Common normals: no clubbing, cyanosis or edema and no calf tenderness Results Labs Labs: Short CBC 10/14/25 Range/Units 06:32 WBC 9.4 (4.0-11.0) 10^3/uL Hgb 8.5 L (12.0-16.0) g/dL Hct 26.5 L (36.0-48.0) % Plt Count 121 L (150-450) 10^3/uL OB - PN: A/P Plan - Vaginal Delivery day: 1 Plan: routine care Time Spent with Patient Time: Total time spent is greater than 50% in coordination of care (as documented) at patient's floor/unit and/or counseling patient: Total time spent with greater than 50% in coordination of care (as documented) at patient's floor/unit and/or counseling patient: less than 15 minutes
[2025-10-14 08:00] VITALS: BP 103/55; PULSE 59; TEMP 36.6
[2025-10-14 08:08] VITALS: BP 103/55; PULSE 59
[2025-10-14] MEDS: ACETAMINOPHEN 325 MG TABLET 650 MG PO ×2 (08:15→23:03)
[2025-10-14] MEDS: DOCUSATE SODIUM 100 MG CAPSULE PO ×2 (08:15→20:31)
[2025-10-14 16:40] VITALS: BP 99/62; PULSE 67; TEMP 36.7
[2025-10-14 16:42] VITALS: BP 99/62; PULSE 67
[2025-10-14 23:03] VITALS: BP 130/79; PULSE 88
[2025-10-15 08:00] VITALS: BP 110/53; PULSE 84
[2025-10-15 08:03] VITALS: TEMP 36.7
[2025-10-15] MEDS: ACETAMINOPHEN 325 MG TABLET 650 MG PO ×2 (08:16→14:29)
[2025-10-15] MEDS: DOCUSATE SODIUM 100 MG CAPSULE PO (08:16)
--- NOTE | 2025-10-15 08:24 | P.OBPN_ITS ---
OB - PN: Subj Subjective Patient comments: no complaints and pain well controlled [place] status: doing well Exam Constitutional Vital Signs, click to edit/add: Last Vital Signs Temp 98.0 F 10/15/25 08:03 Pulse 84 10/15/25 08:00 Resp 16 10/15/25 08:03 BP 110/53 10/15/25 08:00 O2 Del Method Room Air 10/15/25 08:08 Documenting provider has reviewed patient's vital signs: yes Common normals: no apparent distress Respiratory Common normals: normal respiratory effort and clear to auscultation bilaterally Cardio Common normals: regular rate and regular rhythm GI Common normals: Normal to inspection, nondistended, normoactive bowel sounds present Extremity Common normals: normal to inspection, no clubbing, cyanosis or edema and no calf tenderness OB - PN: A/P Plan - Vaginal Delivery day: 2 Plan: routine care, discharge home and follow up 6 weeks Time Spent with Patient Time: Total time spent is greater than 50% in coordination of care (as documented) at patient's floor/unit and/or counseling patient: Total time spent with greater than 50% in coordination of care (as documented) at patient's floor/unit and/or counseling patient: less than 15 minutes
[2025-10-15] MEDS: IBUPROFEN 600 MG TABLET PO ×2 (10:09→16:37)
[2025-10-15] MEDS: POLYETHYLENE GLYCOL 3350 17 GM POWDER PACKET PO (12:10)
--- NOTE | 2025-10-15 13:16 | PC.NURSE ---
report given to Mary Kelly RN
== END 2025-10-15 15:30 | disposition home or self-care (01) | DRG 560 ==
PROVIDERS: Admitting Provider Obstetrics & Gynecology; PCP Family Medicine; Visit Provider Obstetrics & Gynecology
DX: O70.1 Second degree perineal laceration during delivery (principal); Z37.0 Single live birth; Z3A.39 39 weeks gestation of pregnancy; O99.013 Anemia complicating pregnancy, third trimester; D64.9 Anemia, unspecified
CPT/HCPCS: 36415; 59025; 80307; 85025; 85027; 86850; 86900; 86901; 96365; J1756; J2300; J2405

== ENCOUNTER 2025-10-18 08:15 | Outpatient (OUT) | payer OTHER, SELFPAY ==
--- OUTSIDE RECORDS SUMMARY | 2024-08-16 09:00 | XMS_ITS ---
Author Organization [facility] Address [address] [place] [address] Care Team Providers Care Digital Marketing Associate Name Role Phone Bethany Wells Primary Care Provider [phone] Charlee Lawrence Unavailable [phone] REASON FOR VISIT 6 MONTHS Encounters Encounter Location Date Provider Diagnosis [facility] [address] [place] [address] 08/16/2024 Charlee Keithgamaliel Plan Of Treatment No Information Progress Notes * BDOB:11/2004 (20 yo F)Acc No.[id number]:08/16/2024 Patient:?LUCY :?Charlee LawrenceDOB:2005???Age:18 Y???Sex: FemaleDate:08/16/2024hone:[phone]:SUDHEER YU [id number]:Bethany Guerrero Subjective: * Chief Complaints: * 6 MONTHS * Electronic signature of Charlee Lawrence on 10/18/2025 at 08:18 AM ESTSign off status: Pending * Provider: Dru Lawrence Date: Generated for Printing/Faxing/eTransmitting on:?10/18/2025 08:18 AM EST
--- OUTSIDE RECORDS SUMMARY | 2025-04-27 05:00 | XMS_ITS ---
Author Organization [facility] Address [address] [place] [address] Care Team Providers Care Arts And Humanities Council Director Name Role Phone Bethany Wells Primary Care Provider [phone] Dr. Adolfo Reagan [facility] [phone] REASON FOR VISIT JAW AND TOOTH PAIN Encounters Encounter Location Date Provider Diagnosis [facility] [address] [place] [address] 04/27/2025 Adolfo Reagan Plan Of Treatment No Information Progress Notes * BDOB:11/2004 (20 yo F)Acc No.[id number]:04/27/2025 Patient:?AYALA :Yelena Reagan DDSDOB:2005???Age:19 Y???Sex: FemaleDate:04/27/2025Phone:[phone]:[id number]:Bethany Guerrero Subjective: * Chief Complaints: * J AW AND TOOTH PAIN Billing Information: * Procedure Codes: * Electronic signature of Dr. Adolfo Reagan , [facility], [id number] on 10/18/2025 at 08:18 AM ESTSign off status: Pending * Provider: Parrish Reagan DDS Date: 0 04/27/2025 Generated for Printing/Faxing/eTransmitting on:?10/18/2025 08:18 AM EST
--- OUTSIDE RECORDS SUMMARY | 2025-05-10 05:00 | XMS_ITS ---
Author Organization [facility] Address [address] [place] [address] Care Team Providers Care Fitness Studies Teacher Name Role Phone Bethany Wells Primary Care Provider [phone] Dr. Adolfo Reagan [facility] [phone] REASON FOR VISIT JAW AND TOOTH PAIN Encounters Encounter Location Date Provider Diagnosis [facility] [address] [place] [address] 05/10/2025 Adolfo Reagan Plan Of Treatment No Information Progress Notes * BDOB:11/2004 (20 yo F)Acc No.[id number]:05/10/2025 Patient:? :Yelena Reagan DDSDOB:2005???Age:19 Y???Sex: FemaleDate:05/10/2025Phone:[phone]:SUDHEER YU [id number]:Bethany Guerrero Subjective: * Chief Complaints: * J AW AND TOOTH PAIN * Electronic signature of Dr. Adolfo Reagan , [facility], [id number] on 10/18/2025 at 08:18 AM ESTSign off status: Pending * Provider: Parrish Reagan DDS Date: 0 05/10/2025 Generated for Printing/Faxing/eTransmitting on:?10/18/2025 08:18 AM EST
--- OUTSIDE RECORDS SUMMARY | 2025-10-06 14:40 | XMS_ITS | Encounter Summary ---
Author Organization [facility] Address [address] [facility] [place] [address] Care Team Providers Care Automation Technician Name Role Phone Eliana Flanagan MD Primary Care Provider [phone] Reason for Visit * ReasonCommentsRoutine Visit Encounter Details DateTypeDepartmentCare Team (Latest Contact Info)Wwdczvyvinh48/11/2025 2:40 PM ESTRoutine [facility] [address] [place] [address] Darlene Olmstead, WAFER POLISHING WORKER [address] [place] [address] Third trimester ([facility]); 38 weeks gestation of ([facility]) Social History Tobacco UseTypesPacks/DayYears UsedDateSmoking Tobacco: NeverPassive Smoke Exposure: NeverSmokeless Tobacco: NeverAlcohol UseStandard Drinks/WeekComments Never0 (1 standard drink = 0.6 oz pure alcohol)PHQ-2AnswerDate RecordedPatient Health Questionnaire-2 Nzxqu645Estimated Date of Delivery VrefbnvwHme73/19/2025Based on last menstrual period of 01/07/2025Sex and Gender InformationValueDate RecordedSex Assigned at BirthNot on fileLegal SexFemale 01/08/2023 6:51 PM EDTGender IdentityNot on fileSexual OrientationNot on file documented as of this encounter Last Filed Vital Signs Vital SignReadingTime TakenCommentsBlood Uxrfvjqs836/6210/06/2025 2:50 PM EST Pulse--Temperature--Respiratory Rate--Oxygen Saturation--Inhaled Oxygen Concentration--Jlnptk32.7 kg (169 lb)10/06/2025 2:50 PM ESTHeight--Body Mass [...] with dates, antepartum ([facility]) 08/10/2025 Resolved Ambulatory Problems Diagnosis Date Noted [...] nursing note reviewed. Exam conducted with a lumber kiln operator present. Vitals: Estimated body mass index is 29.18 kg/m?? as calculated from the following: Height as of 04/05/25: 5' 4 . Weight as of 09/27/25: 170 lb. BP: Patient's last menstrual period was 01/07/2025. ASSESSMENT & PLAN ICD-10-CM 1. Third trimester ([facility] Z34.93 2. 38 weeks gestation of ([facility] Z3A.38 POCT urinalysis dipstick manually resulted Assessment/Plan [...] Diagnosis Third trimester ([facility]) state, incidental 38 weeks gestation of ([facility]) documented in this encounter Care Teams Team MemberRelationshipSpecialtyStart DateEnd Date Eliana Flanagan MD [address] [place] [address] PCP - GeneralFamily Medicine03/04/23documented as of this encounter
--- OUTSIDE RECORDS SUMMARY | 2025-10-10 13:20 | XMS_ITS | Encounter Summary ---
Author Organization [facility] Address [address] [facility] [place] [address] Care Team Providers Care Certified Recreational Therapist Name Role Phone Eliana Flanagan MD Primary Care Provider [phone] Reason for Visit * ReasonCommentsRoutine Visit Encounter Details DateTypeDepartmentCare Team (Latest Contact Info)Cnvnvgoyoam42/15/2025 1:20 PM ESTRoutine [facility] [address] [phone] Alex Antunez DO [address] Umm Willard, [facility]11 Third trimester ([facility]); 39 weeks gestation of ([facility]) Social History Tobacco UseTypesPacks/DayYears UsedDateSmoking Tobacco: NeverPassive Smoke Exposure: NeverSmokeless Tobacco: NeverAlcohol UseStandard Drinks/WeekComments Never0 (1 standard drink = 0.6 oz pure alcohol)PHQ-2AnswerDate RecordedPatient Health Questionnaire-2 Qtlfu060Estimated Date of Delivery QqevrdcqHtn67/19/2025Based on last menstrual period of 01/07/2025Sex and Gender InformationValueDate RecordedSex Assigned at BirthNot on fileLegal SexFemale 01/08/2023 6:51 PM EDTGender IdentityNot on fileSexual OrientationNot on file documented as of this encounter Last Filed Vital Signs Vital SignReadingTime TakenCommentsBlood Lahldikk798/7010/10/2025 1:36 PM EST Pulse--Temperature--Respiratory Rate--Oxygen Saturation--Inhaled Oxygen Concentration--Mwgfna35.6 kg (171 lb)10/10/2025 1:36 PM ESTHeight--Body Mass [...] with dates, antepartum ([facility]) 08/10/2025 Resolved Ambulatory Problems Diagnosis Date Noted [...] nursing note reviewed. Exam conducted with a pig machine supervisor present. Vitals: Estimated body mass index is 29.35 kg/m?? as calculated from the following: Height as of 25: 5' 4 . Weight as of this encounter: 171 lb. BP: 112/70 Patient's last menstrual period was 01/07/2025. Assessment/Plan ICD-10-CM 1. Third trimester ([facility]) Z34.93 2. 39 weeks gestation of ([facility]) Z3A.39 POCT urinalysis dipstick manually resulted Assessment/Plan [...] this encounter Procedures Procedure NamePriorityDate/TimeAssociated DiagnosisCommentsPOCT URINALYSIS SLZUIDSWVliqnys89/15/2025 1:42 PM EST 39 weeks gestation of ([facility]) documented in this encounter Results * [...] / LateralityCollection Method / VolumeCollection Time Received UbzsCzjwd13/15/2025 1:42 PM EST Narrative Authorizing ProviderResult TypeResult StatusCorey Tulio DOPOINT OF CARE TEST ENTER/EDIT ORDERABLESFinal Result documented in this encounter Visit Diagnoses Diagnosis Third trimester ([facility]) state, incidental 39 weeks gestation of ([facility]) documented in this encounter Care Teams Team MemberRelationshipSpecialtyStart DateEnd Date Eliana Flanagan MD [address] [facility] [address] [place] [address] PCP - GeneralFamily Medicine03/04/23documented as of this encounter
--- OUTSIDE RECORDS SUMMARY | 2025-10-18 08:18 | XMS_ITS | Encounter Summary ---
Author Organization [facility] Address [address] [place] [address] Care Team Providers Care Feed Weigher Name Role Phone Eliana Marquis MD Primary Care Provider [phone] Encounter Details DateTypeDepartmentCare Team (Latest Contact Info)Utzmltfordr27/11/2025linisync Result Encounter [facility] External Department Unsolicited Provider, Generic External Data Social History Tobacco UseTypesPacks/DayYears UsedDateSmoking Tobacco: NeverPassive Smoke Exposure: NeverSmokeless Tobacco: NeverAlcohol UseStandard Drinks/WeekComments Never0 (1 standard drink = 0.6 oz pure alcohol)PHQ-2AnswerDate RecordedPatient Health Questionnaire-2 Akrrx358Estimated Date of Delivery IwrelqccFvd66/19/2025Based on last menstrual period of 01/07/2025Sex and Gender InformationValueDate RecordedSex Assigned at BirthNot on fileLegal SexFemale 01/08/2023 6:51 PM EDTGender IdentityNot on fileSexual OrientationNot on file documented as of this encounter Plan of Treatment Not on file documented as of this encounter Procedures Procedure NamePriorityDate/TimeAssociated DiagnosisCommentsUS OB BPP W NON-LECYNE9210/06/2025 5:07 PM EST documented in this encounter Results * US OB BPP W NON-STRESS (10/06/2025 5:07 PM EST)Anatomical Region LateralityModalityOtherSpecimen (Source)Anatomical Location / Laterality Collection Method / VolumeCollection TimeReceived Time12/08/2025 5:07 PM EST Narrative 10/06/2025 5:09 PM EST [facility] ?[address] ? [place] [address] ? Ultrasound Report ? Signed ? Patient: BLAS,DANETTE B ?MR#: [id number] ?? : 2005 ?Acct:[id number] ?? Age/Sex: 20 / F ?ADM Date: 10/06/25 ?? Loc: [facility] ??250-1 ? Attending Dr: JEANNINE SHARPE M.D. ? Ordering Physician: JEANNINE SHARPE M.D. ?? Date of Service: 10/06/25 ?? Procedure(s): US OB BPP w non-stress ?? Accession Number(s): [id number] ? cc: ELIANA MARQUIS ; JEANNINE SHARPE M.D. ? [facility] ? [address] ? [place] [address] ? Patient Name: ?? DANETTE B BLAS ? MRN: [facility]:[id number] ? date: 2005 ?Sex: F ?? Assigned Patient Location: [facility] ?? Current Patient Location: [facility] ?? Accession/Order Number: [id number] ?? Exam Date: 10/06/2025 ??15:40 ?Report Date: [...] M.D. ??10/06/2025 5:07 PM ? Dictation Location: [facility]-PC-29 ? Electronically authenticated by: [id number] ??Y ?? Date: 10/06/2025 ??17:07 ? Dictated By: ?Marvel Encinas M.D. ? Signed By: ?10/06/25 1709 ? DD/ 06 ? TD/TT: ? Casualty Claims Supervisor: Procedure Note Radiology, Radiologist, MD - 10/06/2025 [place] [address] Ultrasound Report Signed Patient: BLASDANETTE BMR#: [id number] : 2005Acct:[id number] Age/Sex: 20 / FADM Date: 10/06/25 Loc: [facility] 250-[address]: JEANNINE SHARPE M.D. Ordering Physician: JEANNINE SHARPE M.D. Date of Service: 10/06/25 Procedure(s): US OB BPP w non-stress Accession Number(s): [id number] cc: ELIANA MARQUIS ; JEANNINE SHARPE M.D. [place] [address] Patient Name: DANETTE BLAS MRN: [id number] date: 2005 Sex: F Assigned Patient Location: [facility] Current Patient Location: [facility] Accession/Order Number: [id number] Exam Date: 10/06/2025 15:40 Report Date: 10/06/2025 17:07 At the request of: JEANNINE SHARPE MD Procedure: US OB BPP w non-stress Ultrasound biophysical profile INDICATION: Decreased movements COMPARISON: 09/30/2025 FINDINGS/ IMPRESSION: Fetus is cephalic position.. cardiac vqzcouoi399 beats per minutes. KURTIS: 14.7 cm. Biophysical profile score 8/8. Impression dictated by: Marvel Encinas M.D. 10/06/2025 5:07 PM Dictation Location: [place] [address] Electronically authenticated by: [id number] Y Date: 7:07 Dictated By: Marvel Encinas M.D. Signed By:10/06/251708 DD/ 06 TD/TT: Casualty Claims Supervisor: Authorizing ProviderResult TypeResult StatusGeneric External Data Provider CLINISYNC IMAGINGFinal Result documented in this encounter Visit Diagnoses Not on filedocumented in this encounter Care Teams Team MemberRelationshipSpecialtyStart DateEnd Date Eliana Marquis MD [address] [facility] [address] [place] [address] PCP - GeneralFamily Medicine03/04/23documented as of this encounter
--- OUTSIDE RECORDS SUMMARY | 2025-10-18 08:18 | XMS_ITS | Encounter Summary ---
Author Organization [facility] Address [address] [facility] [place] [address] Care Team Providers Care Rail Car Operator Name Role Phone Eliana Flanagan MD Primary Care Provider [phone] Encounter Details DateTypeDepartmentCare Team (Latest Contact Info)Aznjskuzuii54/16/2025bstract [facility] [address] [facility] [place] [address] Alex Antunez DO [address] [facility] [address] [place], [place] [address] Social History Tobacco UseTypesPacks/DayYears UsedDateSmoking Tobacco: NeverPassive Smoke Exposure: NeverSmokeless Tobacco: NeverAlcohol UseStandard Drinks/WeekComments Never0 (1 standard drink = 0.6 oz pure alcohol)PHQ-2AnswerDate RecordedPatient Health Questionnaire-2 [id number] Date of Delivery MfokeisoJhv43/19/2025Based on last menstrual period of 01/07/2025Sex and Gender InformationValueDate RecordedSex Assigned at BirthNot on fileLegal SexFemale 01/08/2023 6:51 PM EDTGender IdentityNot on fileSexual OrientationNot on file documented as of this encounter Plan of Treatment Not on file documented as of this encounter Visit Diagnoses Not on filedocumented in this encounter Care Teams Team MemberRelationshipSpecialtyStart DateEnd Date Eliana Flanagan MD [address] [facility] [address] [place] [address] PCP - GeneralFamily [facility]03/04/23documented as of this encounter
--- OUTSIDE RECORDS SUMMARY | 2025-10-18 08:18 | XMS_ITS | Encounter Summary ---
Author Organization [facility] Address [address] [facility] [place] [address] Care Team Providers Care Deputy General Counsel Name Role Phone Eliana Flanagan MD Primary Care Provider [phone] Encounter Details DateTypeDepartmentCare Team (Latest Contact Info)Rernjajfkzj21/16/2025bstract SANTINO Will[facility] [address] [place] [address] Alex Antunez DO [address] [facility] [address] [place], [place] [id number] Social History Tobacco UseTypesPacks/DayYears UsedDateSmoking Tobacco: NeverPassive Smoke Exposure: NeverSmokeless Tobacco: NeverAlcohol UseStandard Drinks/WeekComments Never0 (1 standard drink = 0.6 oz pure alcohol)PHQ-2AnswerDate RecordedPatient Health Questionnaire-2 [id number] Date of Delivery SeavttuxZoe47/19/2025Based on last menstrual period of 01/07/2025Sex and Gender InformationValueDate RecordedSex Assigned at BirthNot on fileLegal SexFemale 01/08/2023 6:51 PM EDTGender IdentityNot on fileSexual OrientationNot on file documented as of this encounter Plan of Treatment Not on file documented as of this encounter Visit Diagnoses Not on filedocumented in this encounter Care Teams Team MemberRelationshipSpecialtyStart DateEnd Date Eliana Flanagan MD [address] [facility] [address] [place] [address] PCP - GeneralFamily [facility]03/04/23documented as of this encounter
--- OUTSIDE RECORDS SUMMARY | 2025-10-18 08:18 | XMS_ITS | Encounter Summary ---
Author Organization [facility] Address [address] [facility] [place] [address] Care Team Providers Care Hand Spinner Name Role Phone Eliana Flanagan MD Primary Care Provider [phone] Encounter Details DateTypeDepartmentCare Team (Latest Contact Info)Opbbchoqzey35/15/2025amboo flowsheet [facility] [address] [address] [place] [address] Alex Antunez DO [address] [facility] [address] [place], [place] [address] Social History Tobacco UseTypesPacks/DayYears UsedDateSmoking Tobacco: NeverPassive Smoke Exposure: NeverSmokeless Tobacco: NeverAlcohol UseStandard Drinks/WeekComments Never0 (1 standard drink = 0.6 oz pure alcohol)PHQ-2AnswerDate RecordedPatient Health Questionnaire-2 [id number] Date of Delivery ApgcrpfjMum25/19/2025Based on last menstrual period of 01/07/2025Sex and Gender InformationValueDate RecordedSex Assigned at BirthNot on fileLegal SexFemale 01/08/2023 6:51 PM EDTGender IdentityNot on fileSexual OrientationNot on file documented as of this encounter Plan of Treatment Not on file documented as of this encounter Visit Diagnoses Not on filedocumented in this encounter Care Teams Team MemberRelationshipSpecialtyStart DateEnd Date Eliana Flanagan MD [address] [facility] [address] [place] [address] PCP - GeneralFamily Medicine03/04/23documented as of this encounter
--- OUTSIDE RECORDS SUMMARY | 2025-10-18 08:18 | XMS_ITS | Encounter Summary ---
Author Organization [facility] Address [address] [facility] [place] [address] Care Team Providers Care Hairspring Vibrator Name Role Phone Eliana Flanagan MD Primary Care Provider Encounter Details DateTypeDepartmentCare Team (Latest Contact Info)Vohtelehmaa66/16/2025Telephone [facility] [address] [place] [address] Alex Antunez DO [address] [place], [facility] Social History Tobacco UseTypesPacks/DayYears UsedDateSmoking Tobacco: NeverPassive Smoke Exposure: NeverSmokeless Tobacco: NeverAlcohol UseStandard Drinks/WeekComments Never0 (1 standard drink = 0.6 oz pure alcohol)PHQ-2AnswerDate RecordedPatient Health Questionnaire-2 [id number] Date of Delivery IszzdnohMzs09/19/2025Based on last menstrual period of 01/07/2025Sex and Gender InformationValueDate RecordedSex Assigned at BirthNot on fileLegal SexFemale 01/08/2023 6:51 PM EDTGender IdentityNot on fileSexual OrientationNot on file documented as of this encounter Miscellaneous Notes * Telephone Encounter - Hilaria Keys LPN - 10/11/2025 1:26 PM EST Estelita from [facility] called and she states that patient [...] a call from the office. Spoke with stream control officer and this was in regards to IOL on 10/12/2025 @ 630 pm deliver on 10/13/2025. Patient was called and left a detailed voicemail to enter at ER doors and will be sent upstairs.Message sent through [facility] [employer] for patient. documented in this encounter Plan of Treatment Not on file documented as of this encounter Visit Diagnoses Not on filedocumented in this encounter Care Teams Team MemberRelationshipSpecialtyStart DateEnd Date Eliana Flanagan MD [address] [facility] [address] [place] [address] PCP - GeneralFamily Medicine03/04/23documented as of this encounter
--- OUTSIDE RECORDS SUMMARY | 2025-10-18 08:18 | XMS_ITS | Patient Health Record ---
Author Organization [facility] Address [address] [place] [address] Care Team Providers Care Railway Traction Line Worker Name Role Phone Bethany Wells Primary Care Provider [phone] Dr. Adolfo Reagan Unavailable [phone] Reason For Referral No Information Plan Of Treatment No Information Insurance Providers Payer Name Payer Address Payer Phone Subscriber Number Group Number Insured Name Patient Relationship to Insured Coverage Start Date Coverage End Date [employer] [place] [employer] [address] [address] [place] [address] [id number] JUNIOR TREJO DANETTE Self - patient is the insured 3 Dental Wrap [facility] [address] [place] [id number] [id number], lf - patient is the btnuxja6011/27/2022zAnthem BCBS Medicaid-termed 11/26/22[address] [place] [id number] AYALA, lf - patient is the [id number] DQ [place]-termed 11/26/22[address] [place] [phone] [id number], lf - patient is the insured [facility] after [place]-termed 11/26/22[address] [place] [id number], AUTUMNSelf - patient is the [id number] [place] DQ Terminated 10/26/24 [address] [place] [id number] AYALA, Roland - patient is the [id number] Wrap [facility] [place] BCBS Termed [address] [place] [phone] [id number], AUTUMNSelf - patient is the fgsrfqr0611/27/2022 09/25/2023
--- OUTSIDE RECORDS SUMMARY | 2025-10-18 08:19 | XMS_ITS | Encounter Summary ---
Author Organization [facility] Address [address] [facility] [place] [address] Care Team Providers Care Skill Labor Name Role Phone Eliana Flanagan MD Primary Care Provider [phone] Encounter Details DateTypeDepartmentCare Team (Latest Contact Info)Ccykrggasid07/11/2025amboo flowsheet [facility] [address] [facility] [place] [address] Darlene Olmstead, MARION [address] [facility] [place] [address] Social History Tobacco UseTypesPacks/DayYears UsedDateSmoking Tobacco: NeverPassive Smoke Exposure: NeverSmokeless Tobacco: NeverAlcohol UseStandard Drinks/WeekComments Never0 (1 standard drink = 0.6 oz pure alcohol)PHQ-2AnswerDate RecordedPatient Health Questionnaire-2 [id number] Date of Delivery JcqddnalApd95/19/2025Based on last menstrual period of 01/07/2025Sex and Gender InformationValueDate RecordedSex Assigned at BirthNot on fileLegal SexFemale 01/08/2023 6:51 PM EDTGender IdentityNot on fileSexual OrientationNot on file documented as of this encounter Plan of Treatment Not on file documented as of this encounter Visit Diagnoses Not on filedocumented in this encounter Care Teams Team MemberRelationshipSpecialtyStart DateEnd Date Eliana Flanagan MD [address] [facility] [address] [place] [address] PCP - GeneralFamily Medicine03/04/23documented as of this encounter
--- OUTSIDE RECORDS SUMMARY | 2025-10-18 08:19 | XMS_ITS | Clinical Summary ---
Author Organization [facility] Healthcare Address [address] [place] [address] Care Team Providers Care Disassembler Product Name Role Phone Eliana Marquis MD Primary Care Provider [phone] Allergies Active AllergyReactionsCriticalityNoted GckgUqryeftqStngfcnmhsoJyaxhqu38/12/2024 Medications MedicationSigDispense QuantityRefillsLast FilledStart DateEnd DateStatus MV-Min-Fe [...] DateSize of fetus inconsistent with dates, antepartum ([facility])08/10/2025PCOS (polycystic ovarian syndrome)09/07/2024urrent severe episode of major depressive disorder without psychotic features without prior afogyzk8312/30/2023Exercise-induced /05/2024Patellofemoral syndrome of right knee4Estimated Date of ItnetjeqVaamnqpuUmp18/19/2025Based on last menstrual period of 01/07/2025 Encounters DateTypeDepartmentCare KjzsAmvvkecjvln61/19/2025Clinisync Result Encounter NOMS External Department Unsolicited Alex Antunez, DO 10/12/2025linisync Result Encounter NOMS External Department Unsolicited Alex Antunez, DO 10/11/2025bstract [facility] [place] [facility] [address] [place] [address] Alex Antunez, DO 10/11/2025bstract [facility] [place] [facility] [address] [place] [address] Alex Antunez, DO 10/11/2025Telephone [facility] [place] [facility] [address] [address] Alex Antunez, DO 10/10/2025 1:20 PM ESTRoutine [facility] [place] [facility] [address] [address] Alex Antunez, DO Third trimester ([facility]); 39 weeks gestation of ([facility])10/10/2025amboo flowsheet [facility] [place] [facility] [address] [address] Alex Antunez, DO 10/06/2025 2:40 PM ESTRoutine [facility] [place] [facility] [address] [address] Darlene Olmstead NP Third trimester ([facility]); 38 weeks gestation of ([facility])10/06/2025linisync Result Encounter NOMS External Department Unsolicited Provider, Generic External Data 10/06/2025amboo flowsheet [facility] [place] [facility] [address] [place] [address] Darlene Olmstead NP 5Clinisync Result Encounter NOMS External Department Unsolicited Alex Antunez, DO 09/29/2025Telephone [facility] [address] [place] [phone] Anuja Green LPN 09/27/2025 11:00 AM ESTRoutine [facility] [place] [facility] [address] [place] [phone] Alex Antunez, DO Third trimester ([facility]); 37 weeks gestation of ([facility]); Poor growth affecting management of mother, antepartum, single or unspecified fetus ([facility])09/27/2025 10:00 AM ESTAncillary Procedure [facility] [address] [address] Poor growth affecting management of mother in third trimester, single or unspecified fetus ([facility])09/21/2025Telephone [facility] [address] [place] [phone] Alex Antunez, DO 5Abstract [facility] [facility] [address] [place] [address] [phone] Alex Antunez, DO 09/20/2025 2:00 PM ESTRoutine [facility] [place] [facility] [address] [place] [phone] Munira Yu PA Third trimester ([facility]); 36 weeks gestation of ([facility]); Poor growth affecting management of mother in third trimester, single or unspecified fetus ([facility])09/20/2025linisync Result Encounter NOMS External Department Unsolicited Munira Yu PA 5Bamboo flowsheet [facility] [place] [facility] [address] [phone] Munira Yu PA 5Abstract [facility] [place] [facility] [address] [place] [address] Darlene Olmstead, [place] 09/19/2025Telephone [facility] [facility] [address] [place] [address] Darlene Olmstead, [place] 09/13/2025 9:20 AM ESTRoutine [facility] [place] [facility] [address] [place] [address] Alex Antunez, DO Third trimester ([facility]); 35 weeks gestation of ([facility]); Hematuria, gross09/13/2025amboo flowsheet [facility] [place] [facility] [address] [address] Alex Antunez DO 5Abstract [facility] [place] [facility] [address] [place] [address] Shani Hinds MA 5Clinisync Result Encounter NOMS External Department Unsolicited Darlene Olmstead, MAR[place] 09/06/2025Telephone [facility] [facility] [address] [place] [address] Shani Hinds MA 5Clinisync Result Encounter NOMS External Department Unsolicited Darlene Olmstead, MAR[place] 08/26/2025Telephone [facility] [facility] [address] [place] [address] Liliana Leahy MA 5Clinisync Result Encounter NOMS External Department Unsolicited Darlene Olmstead, MAR[place] 08/25/2025 3:20 PM EDTRoutine [facility] [place] [facility] [address] [phone] Munira Yu PA Urinary tract infection without hematuria, site unspecified (Primary Dx); Third trimester ([facility]); 32 weeks gestation of ([facility])08/25/2025amboo flowsheet [facility] [place] [facility] [address] [address] Munira Yu PA 08/22/2025linisync Result Encounter NOMS External Department Unsolicited Alex Antunez, DO 08/22/2025Telephone [facility] [place] [facility] [address] [address] Anuja Green LPN 08/19/2025linisync Result Encounter NOMS External Department Unsolicited Alex Antunez, DO 08/11/2025 3:00 PM EDTRoutine [facility] [place] [facility] [address] [place] [address] Munira Yu PA Third trimester ([facility]); 30 weeks gestation of ([facility])08/11/2025 2:30 PM EDTAncillary Procedure NOMKelley Salazar [address] [place] [address] Second trimester ([facility]); Cystitis; Size of fetus inconsistent with dates, antepartum ([facility])08/05/2025Patient Outreach [facility] [address] [place] [address] Munira Degroot LPN 08/04/2025bstract [facility] [address] [place] [address] Munira Degroot LPN 07/27/2025 1:50 PM EDTRoutine NOMKelley AGUSTIN [address] [place] [address] Darlene Olmstead, MAR[place] Anemia, unspecified type (Primary Dx); 28 weeks gestation of ([facility]); Third trimester ([facility]); Elevated glucose tolerance test07/27/2025amboo flowsheet [facility] [place] OBJIMMIEN [address] [place] [address] Darlene Olmstead NP 07/26/2025Telephone [facility] [place] [facility] [address] [place] [address] Shani Hinds MA 07/25/2025linisync Result Encounter NOMS External Department Unsolicited Provider, Generic External Data from Last 3 Months Family History RelationNameStatusCommentsFatherAliveMotherAlive Social History Tobacco UseTypesPacks/DayYears UsedDateSmoking Tobacco: NeverPassive Smoke Exposure: NeverSmokeless Tobacco: Never Tobacco Cessation:Counseling Given: Yes Alcohol UseStandard Drinks/WeekCommentsNever0 (1 standard drink = 0.6 oz pure alcohol)PHQ-2AnswerDate RecordedPatient Health Questionnaire-2 Boppz957 Estimated Date of HhxxvczqMjjgrnhiUqh44/19/2025ased on last menstrual period of 01/07/2025Sex and Gender InformationValueDate RecordedSex Assigned at BirthNot on fileLegal JwrMhwnhz90/15/2023 6:51 PM EDTGender IdentityNot on file Sexual OrientationNot on file Last Filed Vital Signs Vital SignReadingTime TakenCommentsBlood Bnmtxjkh817/7010/10/2025 1:36 PM EST Cuheh441304/05/2025 11:07 AM EDTTemperature--Respiratory Lzcr731204/05/2025 11:07 AM EDTOxygen Troygafklj36%04/05/2025 11:07 AM EDTInhaled Oxygen Concentration-- Yguekr02.6 kg (171 lb)10/10/2025 1:36 PM ZFIRrvams360.6 cm (5' 4 )04/05/2025 11:07 AM EDTBody Mass Index29.35004/05/2025 11:07 AM EDT Plan of Treatment Health MaintenanceDue DateLast DoneCommentsPneumococcal Vaccine: Pediatrics (0 to 5 Years) and At-Risk Patients (6 to 64 Years) (1 of 2 - PCV)2023 Influenza Vaccine (#1)2025 Procedures Procedure NamePriorityDate/TimeAssociated DiagnosisCommentsALL CBC WITH AUTO DRFKCqupkun70/19/2025 6:32 AM EST HMHP CBC WITH PLATELET NO PWQVOIGAKAYHTvfhuew33/17/2025 7:55 PM EST TBH DRUG SCREEN RAPID (URINE)Xfxseum4510/12/2025 6:58 PM EST POCT URINALYSIS LGVZRITYBcxbvgr55/15/2025 1:42 PM EST 39 weeks gestation of ([facility]) US OB BPP W NON-GFLUFX8210/06/2025 5:07 PM EST US OB BPP W NON-UTICMR5709/30/2025 10:14 PM EST POCT URINALYSIS WMJMDRHUCdfefnl63/02/2025 10:50 AM EST 37 weeks gestation of ([facility]) US OB FOLLOW UP TRANSABDOMINAL EMEBMSYONxzmufr44/02/2025 10:34 AM EST Poor growth affecting management of mother in third trimester, single or unspecified fetus ([facility]) POCT URINALYSIS PGCSALDLVelutam68/25/2025 2:32 PM EST Third trimester ([facility]) STREP GP B CULTURE+ORLVYvyzwwd84/25/2025 2:21 PM EST POCT URINALYSIS JXQDIYDTHeoflus70/18/2025 9:38 AM EST 35 weeks gestation of ([facility]) WINVBXRCFPSEwenkxx33/12/2025 9:57 AM EST CCF YFZIUEVBCqujhlt57/12/2025 9:57 AM EST MLR HEMOGLOBIN T9QCslwtcm79/01/2025 12:50 PM EDT ALL CBC WITH AUTO RZMVWazwifz98/31/2025 10:57 AM EDT POCT URINALYSIS LPIJNTLKYkrxrhk26/30/2025 3:40 PM EDT 32 weeks gestation of ([facility]) GLUCOSE TOLERANCE 3 FZLABrumind73/27/2025 8:44 AM EDT URINE CULTURE, IEVGPBQQjgltnv88/24/2025 12:18 PM EDT TBH URINE MICROSCOPIC XPKOYrjxcbd55/24/2025 12:18 PM EDT TBH UA (CLEAN/CATCH) SIGNAL PERSON/MICRO IF IND.Thlclrx7108/19/2025 12:18 PM EDT US OB FOLLOW UP TRANSABDOMINAL CHTMIXZEKulzddy03/17/2025 12:55 PM EDT Second trimester ([facility]) Cystitis Size of fetus inconsistent with dates, antepartum ([facility]) POCT URINALYSIS RIIWVMVCKcrrknn77/16/2025 3:21 PM EDT Third trimester ([facility]) POCT URINALYSIS DDSKSNCMKjqkasz00/01/2025 2:06 PM EDT 28 weeks gestation of ([facility]) GLUCOSE 1 PDIRXoyyruz35/29/2025 1:17 PM EDT ALL CBC WITH AUTO ANSEIqpvtae04/29/2025 1:17 PM EDT from Last 3 Months Results * (ABNORMAL) ALL CBC WITH AUTO DIFF (10/14/2025 6:32 AM EST) Only the most recent of3 resultswithin the time period is included. ComponentValueRef RangeTest MethodAnalysis TimePerformed AtPathologist Signature TBH WBC9.44.0 - 11.0 10 3/uLTBHTBH RBC3.25(L)4.20 - 5.40 10 6/uLTBHTBH HGB8.5(L) 12.0 - 16.0 g/dLTBHTBH HCT26.5(L)36.0 - 48.0 %TBHTBH MCV81.581.0 - 99.0 fLTBHTBH MCH26.2(L)26.7 - 34.0 pgTBHTBH MCHC32.129.9 - 35.2 g/dLTBHTBH RDW20.3(H)11.0 - 15.0 %TBHTBH HQW767(L)150 - 450 10 3/uLTBHTBH MPV11.19.5 - 13.5 fLTBHNEUTROPHILS PERCENT AUTO80.6(H)43.0 - 75.0 %TBHLYMPHOCYTES PERCENT AUTO12.1(L)20.5 - 60.0 % TBHMONOCYTES PERCENT AUTO6.41.7 - 12.0 %TBHTBH EO %0.3(L)0.9 - 7.0 %TBHBASOPHILS PERCENT AUTO0.20.2 - 2.0 %TBHIMMATURE GRANULOCYTES PCT AUTO0.40.0 - 0.5 %TBH NEUTROPHILS ABSOLUTE AUTO7.6(H)1.4 - 6.5 10 3/uLTBHLYMPHOCYTES ABSOLUTE AUTO1.1 (L)1.2 - 3.8 10 3/uLTBHMONOCYTES ABSOLUTE AUTO0.60.3 - 0.8 10 3/uLTBHTBH EO #0.0 0.0 - 0.7 10 3/uLTBHBASOPHILS ABSOLUTE AUTO0.00.0 - 0.1 10 3/uLTBHIMMATURE GRANULOCYTES ABS AUTO0.04(H)0.00 - 0.03 10 3/uLTBHSpecimen (Source)Anatomical Location / LateralityCollection Method / VolumeCollection TimeReceived Time 10/14/2025 6:32 AM EST10/14/2025 6:36 AM EST Narrative CLINISYNC - 10/14/2025 6:45 AM EST Authorizing ProviderResult TypeResult StatusCorey Tulio DOCLINISYNCFinal Result Performing OrganizationAddressCity/State/ZIP CodePhone Number [place] [facility] * (ABNORMAL) HMHP CBC WITH PLATELET NO DIFFERENTIAL (10/12/2025 7:55 PM EST) ComponentValueRef RangeTest MethodAnalysis TimePerformed AtPathologist SignatureTBH WBC7.34.0 - 11.0 10 3/uLTBHTBH RBC3.73(L)4.20 - 5.40 10 6/uLTBH TBH HGB9.6(L)12.0 - 16.0 g/dLTBHTBH HCT29.5(L)36.0 - 48.0 %TBHTBH MCV79.1(L) 81.0 - 99.0 fLTBHTBH MCH25.7(L)26.7 - 34.0 pgTBHTBH MCHC32.529.9 - 35.2 g/dL TBHTBH RDW19.1(H)11.0 - 15.0 %TBHTBH IBV931(L)150 - 450 10 3/uLTBHTBH MPV11.6 9.5 - 13.5 fLTBHSpecimen (Source)Anatomical Location / LateralityCollection Method / VolumeCollection TimeReceived Time10/12/2025 7:55 PM EST10/12/2025 8:24 PM EST Narrative CLINISYNC - 10/12/2025 8:45 PM EST Authorizing ProviderResult TypeResult StatusCorey Tulio DOCLINISYNCFinal Result Performing OrganizationAddressty/State/ZIP CodePhone Number [place] [facility] * [facility] DRUG SCREEN RAPID (URINE) (10/12/2025 6:58 PM EST)ComponentValueRef Range Test MethodAnalysis TimePerformed AtPathologist SignatureCANNABINOID SCREEN URINENEGATIVENEGATIVETBHPHENCYCLIDINE SCREEN URINENEGATIVENEGATIVETBHCOCAINE SCREEN URINENEGATIVENEGATIVETBHMETHAMPHETAMINES SCREEN URINENEGATIVENEGATIVE TBHOPIATE SCREEN URINENEGATIVENEGATIVETBHAMPHETAMINE SCREEN URINENEGATIVE NEGATIVETBHBENZODIAZEPINES SCREEN URINENEGATIVENEGATIVETBHTRICYCLIC ANTIDEPRESSANT URINENEGATIVENEGATIVETBHMETHADONE SCREEN URINENEGATIVENEGATIVE TBHBARBITURATES SCREEN URINENEGATIVENEGATIVETBHOXYCODONE SCREEN URINENEGATIVE NEGATIVETBHBUPRENORPHINE SCREEN URINENEGATIVENEGATIVETBHComment: DRUG CLASS TEST SYSTEM CUT-OFF CONCENTRATIONS ARE FOLLOWS: AMP (Amphetamine): 500 ng/mL BAR (Barbiturates): 200 ng/mL BZO (Benzodiazepines): 150 ng/mL BUP (Buprenorphine): 10 ng/mL LISBETH (Cocaine): 150 ng/mL mAMP (Methamphetamine): 500 ng/mL MTD (Methadone): 200 ng/mL OPI (Opiates): 100 ng/mL OXY (Oxycodone): 100 ng/mL PCP (Phencyclidine): 25 ng/mL THC (Cannabinoids): 50 ng/mL TCA (Trycyclic Antidepressants): 300 ng/mL Specimen (Source)Anatomical Location / LateralityCollection Method / Volume Collection TimeReceived Time10/12/2025 6:58 PM EST10/12/2025 7:32 PM EST Narrative CLINISYNC - 10/12/2025 7:51 PM EST Authorizing ProviderResult TypeResult StatusCorey Tulio DOCLINISYNCFinal Result Performing OrganizationAddressCity/State/ZIP CodePhone Number CLINISYCO [facility] * (ABNORMAL) POCT urinalysis dipstick manually resulted (10/10/2025 1:42 PM EST) Only the most recent of7 resultswithin the time period is included. ComponentValueRef [...] Location / LateralityCollection Method / VolumeCollection TimeReceived ZxbmDpglv35/15/2025 1:42 PM EST Narrative Authorizing ProviderResult TypeResult StatusCorey Tulio DOPOINT OF CARE TEST ENTER/EDIT ORDERABLESFinal Result * US OB BPP W NON-STRESS (10/06/2025 5:07 PM EST) Only the most recent of2 resultswithin the time period is included. Anatomical RegionLateralityModalityOtherSpecimen (Source)Anatomical Location / LateralityCollection Method / VolumeCollection TimeReceived Time10/06/2025 5:07 PM EST Narrative 10/06/2025 5:09 PM EST [facility] ?[address] ? [place], [place] [address] ? Ultrasound Report ? Signed ? Patient: AYALA,DANETTE B ?MR#: [id number] ?? : 2005 ?Acct:[id number] ?? Age/Sex: 20 / F ?ADM Date: 10/06/25 ?? Loc: [facility] ??250-1 ? Attending Dr: JEANNINE SHARPE M.D. ? Ordering Physician: JEANNINE SHARPE M.D. ?? Date of Service: 10/06/25 ?? Procedure(s): US OB BPP w non-stress ?? Accession Number(s): [id number] ? cc: ELIANA MARQUIS ; JEANNINE SHARPE M.D. ? [facility] ? [address] ? [place] [address] ? Patient Name: ?? DANETTE B AYALA ? MRN: [facility]:[id number] ? date: 2005 ?Sex: F ?? Assigned Patient Location: [facility] ?? Current Patient Location: [facility] ?? Accession/Order Number: [id number] ?? Exam Date: 10/06/2025 ??15:40 ?Report Date: [...] Dictation Location: RADIO-PC-29 ? Electronically authenticated by: [id number] ??Y ?? Date: 10/06/2025 ??17:07 ? Dictated By: ?Marvel Encinas M.D. ? Signed By: ?10/06/25 1709 ? DD/ ? TD/TT: ? Director Trade: Procedure Note Radiology, Radiologist, MD - 10/06/2025 [place] [address] Ultrasound Report Signed Patient: DANETTE AYALA BMR#: [id number] : 2005Acct:[id number] Age/Sex: 20 / FADM Date: 10/06/25 Loc: [facility] 250-[address]: JEANNINE SHARPE M.D. Ordering Physician: JEANNINE SHARPE M.D. Date of Service: 10/06/25 Procedure(s): US OB BPP w non-stress Accession Number(s): [id number] cc: ELIANA MARQUIS ; JEANNINE SHARPE M.D. The [place] [id number] Patient Name: DANETTE AYALA MRN: [facility]:[id number] date: 2005 Sex: F Assigned Patient Location: [facility] Current Patient Location: [facility] Accession/Order Number: [id number] Exam Date: 10/06/2025 15:40 Report Date: 10/06/2025 17:07 At the request of: JEANNINE SHARPE MD Procedure: US OB BPP w non-stress Ultrasound biophysical profile INDICATION: Decreased movements COMPARISON: 09/30/2025 FINDINGS/ IMPRESSION: Fetus is cephalic position.. cardiac fxwmfsox924 beats per minutes. KURTIS: 14.7 cm. Biophysical profile score 8/8. Impression dictated by: Marvel Encinas M.D. 10/06/2025 5:07 PM Dictation Location: [place] [address] Electronically authenticated by: [id number] Y Date: 7:07 Dictated By: Marvel Encinas M.D. Signed By:10/06/251708 DD/ 06 TD/TT: Director Trade: Authorizing ProviderResult TypeResult StatusGeneric External Data Provider [...] Adolfo Camp MD Authorizing ProviderResult TypeResult StatusAmy Mobile [facility] OB US PROCEDURES Final Result * STREP [...] is noted.TBHSTREP GP B CULTURE+RFLX Performed at: [facility] RegionTBHSTREP GP B CULTURE+[id number] [place], [place] [id number] GP B CULTURE+RFLXLab Director: Nate Don PhD, Phone: [phone] (Source)Anatomical Location / Laterality Collection Method / VolumeCollection TimeReceived Time09/20/2025 2:21 PM EST 09/20/2025 9:00 PM EST Narrative CLINISYNC - 09/25/2025 1:08 PM EST Authorizing ProviderResult TypeResult StatusAmy [facility] BLOOD ORDERABLES Final ResultPerforming OrganizationAddressCity/State/ZIP CodePhone Number [facility] * (ABNORMAL) TRANSFERRIN (09/07/2025 9:57 AM EST)ComponentValueRef RangeTest MethodAnalysis TimePerformed AtPathologist XqcscshubWGNGVALKSWG729(A)192 - 364 mg/dLTBHComment: Performed at: ??[facility] [address] [place], [place] ??[id number] Cardiopulmonary Physical Therapist: Nate Don PhD, Phone: ??[phone] Specimen (Source)Anatomical Location / LateralityCollection Method / Volume Collection TimeReceived Time09/07/2025 9:57 AM EST09/07/2025 10:02 AM EST Narrative CLINISYKIM - 09/08/2025 12:09 PM EST Authorizing ProviderResult TypeResult StatusDarlene [place] NPLAB BLOOD ORDERABLESFinal ResultPerforming OrganizationAddressCity/State/ZIP CodePhone [facility] * (ABNORMAL) CCF FERRITIN (09/07/2025 9:57 AM EST)ComponentValueRef RangeTest MethodAnalysis TimePerformed AtPathologist SignatureFERRITIN6.0(L)8.0 - 252.0 ng/mLTBHSpecimen (Source)Anatomical Location / LateralityCollection Method / VolumeCollection TimeReceived Time09/07/2025 9:57 AM EST09/07/2025 10:02 AM EST Narrative CLINISYKIM - 09/07/2025 11:54 AM EST Authorizing ProviderResult TypeResult StatusDarlene [place]stead NPCLINISYNCFinal ResultPerforming OrganizationAddressCity/State/ZIP CodePhone Number [place] [facility] * MLR HEMOGLOBIN A1C (08/27/2025 12:50 PM EDT)ComponentValueRef RangeTest Method Analysis TimePerformed AtPathologist SignatureGLYCOHEMOGLOBIN A1C4.94.5 - 6.2 %TBHComment: ADA RECOMMENDED LIMIT 4.0 - 6.0 ADA THERAPEUTIC TARGET < 7.0 ACTION SUGGESTED > 7.0 ESTIMATED AVERAGE JDFXDYT42qk/dLTBHSpecimen (Source)Anatomical Location / LateralityCollection Method / VolumeCollection TimeReceived Time08/27/2025 12:50 PM EDT110/27/2024 12:51 PM EDT Narrative PATITOISYNC - 08/27/2025 1:18 PM EDT Authorizing ProviderResult TypeResult StatusDarlene [place]stead NPCLINISYNCFinal ResultPerforming OrganizationAddressCity/State/ZIP CodePhone Number [place] [facility] * GLUCOSE TOLERANCE 3 HOUR (08/22/2025 8:44 [...] ORDERABLES Final ResultPerforming OrganizationAddressCity/State/ZIP CodePhone Number CLINISYNC [facility] * (ABNORMAL) URINE CULTURE, ROUTINE (08/19/2025 12:18 [...] ROUTINE ??O:CNSNSS Isolated TBHURINE CULTURE, ROUTINEPerformed at: [facility] RehabilitationTBHURINE CULTURE, [id number] [place], [place] [id number] CULTURE, ROUTINELab Director: Nate Don PhD, Phone: [phone] CULTURE, ROUTINE Organism: ??1.1 Antibiotic ? Interpretation [...] CLINISYNC [facility] * (ABNORMAL) TBH UA (CLEAN/CATCH) SIGNAL PERSON/MICRO IF IND. (08/19/2025 12:18 PM EDT) ComponentValueRef RangeTest MethodAnalysis TimePerformed AtPathologist SignatureCOLOR URINELT. YELLOWYELLOWTBHCLARITY URINECLEARCLEARTBHSPECIFIC GRAVITY URINE1.0101.005 - 1.025TBHPH URINE7.05.0 - 9.0TBHPROTEIN URINENEGATIVE NEG/TRACE mg/dLTBHGLUCOSE URINE UANEGATIVENEGATIVE mg/dLTBHBILIRUBIN URINE NEGATIVENEGATIVETBHKETONES URINENEGATIVENEGATIVE mg/dLTBHBLOOD URINENEGATIVE NEGATIVETBHNITRITE URINENEGATIVENEGATIVETBHUROBILINOGEN URINE0.20.2 - 1.0 EU/dLTBHLEUKOCYTE ESTERASE URINESMALL(A)NEGATIVETBHURINE MICROSCOPIC INDICATED YESTBHSpecimen (Source)Anatomical Location / LateralityCollection Method / VolumeCollection TimeReceived Time10/ 12:18 PM EDT1 1:24 PM EDT Narrative CLINISYNC - 08/19/2025 1:32 PM EDT Authorizing ProviderResult TypeResult StatusCorey Tulio DOCLINISYNCFinal Result Performing OrganizationAddressCity/State/ZIP CodePhone Number [facility] [facility] * (ABNORMAL) GLUCOSE 1 HOUR (07/25/2025 1:17 PM EDT)ComponentValueRef RangeTest MethodAnalysis TimePerformed AtPathologist SignatureGLUCOSE 1 JJMY085(H)<130 mg/dLTBHSpecimen (Source)Anatomical Location / LateralityCollection Method / VolumeCollection TimeReceived Time07/25/2025 1:17 PM EDT07/25/2025 1:19 PM EDT Narrative CLINISYNC - 07/25/2025 1:47 PM EDT Authorizing ProviderResult TypeResult StatusCorey Tulio DOLAB BLOOD ORDERABLES Final ResultPerforming OrganizationAddressCity/State/ZIP CodePhone Number [place] [facility] from Last 3 Months Insurance Care Teams Team MemberRelationshipSpecialtyStart DateEnd Date Eliana Marquis MD [address] [place] [address] PCP - GeneralFamily Medicine03/04/23
--- OUTSIDE RECORDS SUMMARY | 2025-10-18 08:19 | XMS_ITS | Encounter Summary ---
Author Organization [facility] Address [address] [place] [address] Care Team Providers Care Supervisor [employer] Name Role Phone Eliana Flanagan MD Primary Care Provider [phone] Encounter Details DateTypeDepartmentCare Team (Latest Contact Info)Uemuzxkccpa10/19/2025linisync Result Encounter [facility] External Department Unsolicited Alex Antunez, DO [address] [facility] [place] [address] Social History Tobacco UseTypesPacks/DayYears UsedDateSmoking Tobacco: NeverPassive Smoke Exposure: NeverSmokeless Tobacco: NeverAlcohol UseStandard Drinks/WeekComments Never0 (1 standard drink = 0.6 oz pure alcohol)PHQ-2AnswerDate RecordedPatient Health Questionnaire-2 [id number] Date of Delivery GaseivbwGzx46/19/2025Based on last menstrual period of 01/07/2025Sex and Gender InformationValueDate RecordedSex Assigned at BirthNot on fileLegal SexFemale 01/08/2023 6:51 PM EDTGender IdentityNot on fileSexual OrientationNot on file documented as of this encounter Plan of Treatment Not on file documented as of this encounter Procedures Procedure NamePriorityDate/TimeAssociated DiagnosisCommentsALL CBC WITH AUTO NEQHPeiuxys99/19/2025 6:32 AM EST documented in this encounter Results * (ABNORMAL) ALL CBC WITH AUTO DIFF (10/14/2025 6:32 AM EST)ComponentValueRef RangeTest MethodAnalysis TimePerformed AtPathologist SignatureTBH WBC9.44.0 - 11.0 10 3/uLTBHTBH RBC3.25(L)4.20 - 5.40 10 6/uLTBHTBH HGB8.5(L)12.0 - 16.0 g/dLTBHTBH HCT26.5(L)36.0 - 48.0 %TBHTBH MCV81.581.0 - 99.0 fLTBHTBH MCH26.2 (L)26.7 - 34.0 pgTBHTBH MCHC32.129.9 - 35.2 g/dLTBHTBH RDW20.3(H)11.0 - 15.0 % TBHTBH NNT582(L)150 - 450 10 3/uLTBHTBH MPV11.19.5 - 13.5 fLTBHNEUTROPHILS PERCENT AUTO80.6(H)43.0 - 75.0 %TBHLYMPHOCYTES PERCENT AUTO12.1(L)20.5 - 60.0 %TBHMONOCYTES PERCENT AUTO6.41.7 - 12.0 %TBHTBH EO %0.3(L)0.9 - 7.0 %TBH BASOPHILS PERCENT AUTO0.20.2 - 2.0 %TBHIMMATURE GRANULOCYTES PCT AUTO0.40.0 - 0.5 %TBHNEUTROPHILS ABSOLUTE AUTO7.6(H)1.4 - 6.5 10 3/uLTBHLYMPHOCYTES ABSOLUTE AUTO1.1(L)1.2 - 3.8 10 3/uLTBHMONOCYTES ABSOLUTE AUTO0.60.3 - 0.8 10 3/uLTBHTBH EO #0.00.0 - 0.7 10 3/uLTBHBASOPHILS ABSOLUTE AUTO0.00.0 - 0.1 10 3/uLTBHIMMATURE GRANULOCYTES ABS AUTO0.04(H)0.00 - 0.03 10 3/uLTBHSpecimen (Source)Anatomical Location / LateralityCollection Method / VolumeCollection TimeReceived Time10/14/2025 6:32 AM EST10/14/2025 6:36 AM EST Narrative [facility] - 10/14/2025 6:45 AM EST Authorizing ProviderResult TypeResult StatusCorey Tulio DOCLINISYNCFinal Result Performing OrganizationAddressCity/State/ZIP CodePhone Number [facility] documented in this encounter Visit Diagnoses Not on filedocumented in this encounter Care Teams Team MemberRelationshipSpecialtyStart DateEnd Date Eliana Flanagan MD [address] [facility] [address] [place] [address] PCP - GeneralFamily Medicine03/04/23documented as of this encounter
--- OUTSIDE RECORDS SUMMARY | 2025-10-18 08:19 | XMS_ITS | Encounter Summary ---
Author Organization [facility] Address [address] [place] [address] Care Team Providers Care [employer] Guard Supervisor Name Role Phone Eliana Flanagan MD Primary Care Provider [phone] Encounter Details DateTypeDepartmentCare Team (Latest Contact Info)Xjbeikmbwpw78/17/2025linisync Result Encounter [facility] External Department Unsolicited Alex Antunez, DO [address] [facility] [place] [address] Social History Tobacco UseTypesPacks/DayYears UsedDateSmoking Tobacco: NeverPassive Smoke Exposure: NeverSmokeless Tobacco: NeverAlcohol UseStandard Drinks/WeekComments Never0 (1 standard drink = 0.6 oz pure alcohol)PHQ-2AnswerDate RecordedPatient Health Questionnaire-2 [id number] Date of Delivery VgjurwizIli27/19/2025Based on last menstrual period of 01/07/2025Sex and Gender InformationValueDate RecordedSex Assigned at BirthNot on fileLegal SexFemale 01/08/2023 6:51 PM EDTGender IdentityNot on fileSexual OrientationNot on file documented as of this encounter Plan of Treatment Not on file documented as of this encounter Procedures Procedure NamePriorityDate/TimeAssociated DiagnosisCommentsHMHP CBC WITH PLATELET NO ZTOSTBCCZLPMGneocma21/17/2025 7:55 PM EST [facility] DRUG SCREEN RAPID (URINE)Wkmtgxe6510/12/2025 6:58 PM EST documented in this encounter Results * (ABNORMAL) [facility] CBC WITH PLATELET NO DIFFERENTIAL (10/12/2025 7:55 PM EST) ComponentValueRef RangeTest MethodAnalysis TimePerformed AtPathologist SignatureTBH WBC7.34.0 - 11.0 10 3/uLTBHTBH RBC3.73(L)4.20 - 5.40 10 6/uLTBH TBH HGB9.6(L)12.0 - 16.0 g/dLTBHTBH HCT29.5(L)36.0 - 48.0 %TBHTBH MCV79.1(L) 81.0 - 99.0 fLTBHTBH MCH25.7(L)26.7 - 34.0 pgTBHTBH MCHC32.529.9 - 35.2 g/dL TBHTBH RDW19.1(H)11.0 - 15.0 %TBHTBH BAB959(L)150 - 450 10 3/uLTBHTBH MPV11.6 9.5 - 13.5 fLTBHSpecimen (Source)Anatomical Location / LateralityCollection Method / VolumeCollection TimeReceived Time10/12/2025 7:55 PM EST10/12/2025 8:24 PM EST Narrative [facility] - 10/12/2025 8:45 PM EST Authorizing ProviderResult TypeResult StatusCorey Tulio DOCLINISYNCFinal Result Performing OrganizationAddressCity/State/ZIP CodePhone Number [facility] DR[facility] SCRE[facility] RAPID (URINE) (10/12/2025 6:58 PM [...] Tulio DOCLINISYNCFinal Result Performing OrganizationAddressCity/State/ZIP CodePhone Number [facility] documented in this encounter Visit Diagnoses Not on filedocumented in this encounter Care Teams Team MemberRelationshipSpecialtyStart DateEnd Date Eliana Flanagan MD [address] [place] [address] PCP - GeneralFamily Medicine03/04/23documented as of this encounter
[2025-10-18 13:16] VITALS: BP 117/71; PULSE 97; TEMP 36.7; O2SAT 96
== END 2025-10-18 13:21 | disposition home or self-care (01) ==
LOC: FBCO 08:15
PROVIDERS: PCP Family Medicine; Visit Provider Obstetrics & Gynecology
DX: Z39.1 Encounter for care and examination of lactating mother (principal)
CPT/HCPCS: G0463